=== PATIENT | female | born 1970 | race Caucasian/White ===

== ENCOUNTER → 2017-07-19 07:42 | Outpatient (CLI) | payer OTHER, SELFPAY ==
[2017-07-19 08:00] LABS: Absolute Lymphocyte Count 1.44 X10^3/ul (0.83-4.51); Absolute Neutrophil Count 3.1 X10^3/uL (2.0-7.7); Basophil# 0.01 X10^3/uL; Basophil% 0.2 % (0-1); Eosinophil# 0.03 X10^3/uL; Eosinophils% 0.6 % (0-5); Hematocrit 43.3 % (37-47); Hemoglobin 15.3 g/dl (12.0-15.0); Lymphocyte # 1.44 X10^3/ul (4.0); Lymphocyte % 28.5 % (19-41); Mean Corp Hgb Conc 35.3 g/gl (32-36); Mean Corpuscular Hgb 35.4 pg (27.0-32.0); Mean Corpuscular Volume 100.2 fL (81-99); Mean Platelet Vol. 9.2 fl (6.2-12.0); Monocyte# 0.42 X10^3/uL; Monocyte% 8.3 % (0-10); Neutrophil # 3.14 X10^3/uL (2.7-7.7); Neutrophil % 62.2 % (47-70); Platelet Count 243 K/mm3 (150-450); RBC Distribution Width CV 11.6 % (11.6-14.6); RBC Distribution Width SD 42.2 fl (35.1-43.9); Red Blood Count 4.32 M/mm3 (4.2-5.4); White Blood Count 5.1 K/mm3 (4.4-11.0)
[2017-07-19 08:01] LABS: POSITIVE COUNT NO; POSITIVE DIFFERENTIAL NO; POSITIVE MORPHOLOGY NO
[2017-07-19 08:22] LABS: ALB/GLOB Ratio 1.2 RATIO (0.9-2.4); AST(SGOT) 25 U/L (15-37); Alanine Aminotransfer ALT/SGPT 25 U/L (13-56); Albumin, Serum 4.1 g/dL (3.2-5.0); Alkaline Phosphatase 54 U/L (45-117); Anion Gap 4 (5-15); BUN 8 mg/dL (7-18); BUN/Creat Ratio 10.7 RATIO (10-20); Calcium,Total 9.1 mg/dL (8.5-10.1); Chloride 104 mmol/L (98-107); Creatinine, Serum 0.75 mg/dL (0.55-1.02); EST Glomerular Filtration Rate 89 mL/min (>60); Est Glom Filt Rate - Afr Amer 107 mL/min (>60); Globulin 3.3 g/dL (2.2-4.2); Glucose 72 mg/dL (74-106); Potassium 3.7 mmol/L (3.5-5.1); Protein, Total 7.4 g/dL (6.4-8.2); Sodium Level 138 mmol/L (136-145)
== END ==
PROVIDERS: Family Provider Family Medicine; PCP Family Medicine; Visit Provider Internal Medicine Rheumatology
DX: M05.79 Rheumatoid arthritis with rheumatoid factor of multiple sites without organ or systems involvement (principal); M35.00 Sjogren syndrome, unspecified; M18.11 Unilateral primary osteoarthritis of first carpometacarpal joint, right hand; M46.1 Sacroiliitis, not elsewhere classified; M47.892 Other spondylosis, cervical region; R51 Headache; Z79.899 Other long term (current) drug therapy
CPT/HCPCS: 36415; 80053; 85025

== ENCOUNTER → 2017-10-04 09:22 | Outpatient (CLI) | payer OTHER, SELFPAY ==
[2017-10-04 11:18] LABS: Absolute Lymphocyte Count 1.51 X10^3/ul (0.83-4.51); Absolute Neutrophil Count 2.2 X10^3/uL (2.0-7.7); Basophil# 0.02 X10^3/uL; Basophil% 0.5 % (0-1); Eosinophil# 0.03 X10^3/uL; Eosinophils% 0.7 % (0-5); Hemoglobin 15.1 g/dl (12.0-15.0); Lymphocyte # 1.51 X10^3/ul (4.0); Lymphocyte % 36.2 % (19-41); Mean Corp Hgb Conc 35.1 g/gl (32-36); Mean Corpuscular Hgb 35.7 pg (27.0-32.0); Mean Corpuscular Volume 101.7 fL (81-99); Mean Platelet Vol. 10.3 fl (6.2-12.0); Monocyte% 9.6 % (0-10); Neutrophil % 52.8 % (47-70); Platelet Count 186 K/mm3 (150-450); RBC Distribution Width CV 11.8 % (11.6-14.6); RBC Distribution Width SD 43.1 fl (35.1-43.9); Red Blood Count 4.23 M/mm3 (4.2-5.4); White Blood Count 4.2 K/mm3 (4.4-11.0)
[2017-10-04 11:24] LABS: POSITIVE COUNT NO; POSITIVE DIFFERENTIAL NO; POSITIVE MORPHOLOGY NO
[2017-10-04 11:45] LABS: ALB/GLOB Ratio 1.4 RATIO (0.9-2.4); AST(SGOT) 31 U/L (15-37); Alanine Aminotransfer ALT/SGPT 37 U/L (13-56); Albumin, Serum 4.3 g/dL (3.2-5.0); Alkaline Phosphatase 54 U/L (45-117); Anion Gap 7 (5-15); BUN 8 mg/dL (7-18); BUN/Creat Ratio 11.7 RATIO (10-20); Calcium,Total 8.7 mg/dL (8.5-10.1); Chloride 106 mmol/L (98-107); Creatinine, Serum 0.68 mg/dL (0.55-1.02); EST Glomerular Filtration Rate 99 mL/min (>60); Est Glom Filt Rate - Afr Amer 119 mL/min (>60); Globulin 3.1 g/dL (2.2-4.2); Glucose 49 mg/dL (74-106); Potassium 3.7 mmol/L (3.5-5.1); Protein, Total 7.4 g/dL (6.4-8.2); Sodium Level 141 mmol/L (136-145)
== END ==
PROVIDERS: Family Provider Family Medicine; PCP Family Medicine; Visit Provider Internal Medicine Rheumatology
DX: M05.79 Rheumatoid arthritis with rheumatoid factor of multiple sites without organ or systems involvement (principal); M35.00 Sjogren syndrome, unspecified; M18.11 Unilateral primary osteoarthritis of first carpometacarpal joint, right hand; M46.1 Sacroiliitis, not elsewhere classified; M47.892 Other spondylosis, cervical region; R51 Headache; Z79.899 Other long term (current) drug therapy
CPT/HCPCS: 36415; 80053; 85025

== ENCOUNTER → 2017-12-27 07:40 | Outpatient (CLI) | payer OTHER, SELFPAY ==
[2017-12-27 08:43] LABS: Absolute Lymphocyte Count 1.77 X10^3/ul (0.83-4.51); Absolute Neutrophil Count 2.8 X10^3/uL (2.0-7.7); Basophil# 0.02 X10^3/uL; Basophil% 0.4 % (0-1); Eosinophil# 0.04 X10^3/uL; Eosinophils% 0.8 % (0-5); Hematocrit 43.1 % (37-47); Hemoglobin 14.5 g/dl (12.0-15.0); Lymphocyte # 1.77 X10^3/ul (4.0); Lymphocyte % 35.5 % (19-41); Mean Corp Hgb Conc 33.6 g/gl (32-36); Mean Corpuscular Hgb 35.1 pg (27.0-32.0); Mean Corpuscular Volume 104.4 fL (81-99); Mean Platelet Vol. 9.6 fl (6.2-12.0); Monocyte# 0.36 X10^3/uL; Monocyte% 7.2 % (0-10); Neutrophil % 56.1 % (47-70); Platelet Count 211 K/mm3 (150-450); RBC Distribution Width CV 11.9 % (11.6-14.6); Red Blood Count 4.13 M/mm3 (4.2-5.4)
[2017-12-27 08:46] LABS: POSITIVE COUNT NO; POSITIVE DIFFERENTIAL NO; POSITIVE MORPHOLOGY NO
[2017-12-27 09:18] LABS: ALB/GLOB Ratio 1.2 RATIO (0.9-2.4); AST(SGOT) 21 U/L (15-37); Alanine Aminotransfer ALT/SGPT 25 U/L (13-56); Albumin, Serum 3.7 g/dL (3.2-5.0); Alkaline Phosphatase 54 U/L (45-117); Anion Gap 6 (5-15); BUN 12 mg/dL (7-18); BUN/Creat Ratio 17.7 RATIO (10-20); Calcium,Total 8.7 mg/dL (8.5-10.1); Chloride 105 mmol/L (98-107); Cholesterol 122 mg/dL (200); Creatinine, Serum 0.68 mg/dL (0.55-1.02); EST Glomerular Filtration Rate 99 mL/min (>60); Est Glom Filt Rate - Afr Amer 120 mL/min (>60); Globulin 3.1 g/dL (2.2-4.2); Glucose 72 mg/dL (74-106); High Density Lipoprotein 60 mg/dL; Potassium 3.9 mmol/L (3.5-5.1); Protein, Total 6.8 g/dL (6.4-8.2); Sodium Level 139 mmol/L (136-145); T3 Uptake 33 % (30-39); T4 Total, Thyroxin 9.6 ug/dL (4.8-13.9); T7 / Free Thyroxin Index 3.2 (1.4-4.5); Thyroid Stim Hormone (TSH) 1.75 uIU/mL (0.358-3.74); Triglycerides 48 mg/dL; Very Low Density Lipoprotein 10 mg/dL (5-40)
== END ==
PROVIDERS: Family Provider Family Medicine; PCP Family Medicine; Referring Provider Internal Medicine Rheumatology; Visit Provider Internal Medicine Rheumatology
DX: M05.79 Rheumatoid arthritis with rheumatoid factor of multiple sites without organ or systems involvement (principal); Z79.899 Other long term (current) drug therapy; M35.00 Sjogren syndrome, unspecified; M18.11 Unilateral primary osteoarthritis of first carpometacarpal joint, right hand; M46.1 Sacroiliitis, not elsewhere classified; M47.892 Other spondylosis, cervical region; R51 Headache; Z13.220 Encounter for screening for lipoid disorders
CPT/HCPCS: 36415; 80053; 80061; 84436; 84443; 84479; 85025

== ENCOUNTER → 2018-04-08 16:28 | Outpatient (CLI) | payer OTHER, SELFPAY ==
[2018-04-08 17:35] LABS: ALB/GLOB Ratio 1.4 RATIO (0.9-2.4); AST(SGOT) 31 U/L (15-37); Alanine Aminotransfer ALT/SGPT 46 U/L (13-56); Albumin, Serum 4.5 g/dL (3.2-5.0); Alkaline Phosphatase 72 U/L (45-117); Anion Gap 7 (5-15); BUN 11 mg/dL (7-18); BUN/Creat Ratio 15.6 RATIO (10-20); Calcium,Total 8.7 mg/dL (8.5-10.1); Chloride 104 mmol/L (98-107); EST Glomerular Filtration Rate 95 mL/min (>60); Est Glom Filt Rate - Afr Amer 115 mL/min (>60); Globulin 3.2 g/dL (2.2-4.2); Glucose 73 mg/dL (74-106); Potassium 3.8 mmol/L (3.5-5.1); Protein, Total 7.7 g/dL (6.4-8.2); Sodium Level 140 mmol/L (136-145)
[2018-04-08 17:44] LABS: Absolute Neutrophil Count 3.5 X10^3/uL (2.0-7.7); Basophil# 0.01 X10^3/uL; Basophil% 0.2 % (0-1); Eosinophil# 0.07 X10^3/uL; Eosinophils% 1.2 % (0-5); Hematocrit 46.4 % (37-47); Hemoglobin 15.6 g/dl (12.0-15.0); Lymphocyte % 33.7 % (19-41); Mean Corp Hgb Conc 33.6 g/gl (32-36); Mean Corpuscular Hgb 35.7 pg (27.0-32.0); Mean Corpuscular Volume 106.2 fL (81-99); Mean Platelet Vol. 10.1 fl (6.2-12.0); Monocyte% 6.7 % (0-10); Neutrophil # 3.45 X10^3/uL (2.7-7.7); Platelet Count 217 K/mm3 (150-450); RBC Distribution Width CV 12.2 % (11.6-14.6); RBC Distribution Width SD 46.6 fl (35.1-43.9); Red Blood Count 4.37 M/mm3 (4.2-5.4); White Blood Count 5.9 K/mm3 (4.4-11.0)
[2018-04-08 18:00] LABS: POSITIVE COUNT NO; POSITIVE DIFFERENTIAL NO; POSITIVE MORPHOLOGY NO
== END ==
PROVIDERS: Family Provider Family Medicine; PCP Family Medicine; Referring Provider Internal Medicine Rheumatology; Visit Provider Internal Medicine Rheumatology
DX: M05.79 Rheumatoid arthritis with rheumatoid factor of multiple sites without organ or systems involvement (principal); M35.00 Sjogren syndrome, unspecified; M18.11 Unilateral primary osteoarthritis of first carpometacarpal joint, right hand; M46.1 Sacroiliitis, not elsewhere classified; M47.892 Other spondylosis, cervical region; R51 Headache; Z79.899 Other long term (current) drug therapy
CPT/HCPCS: 36415; 80053; 85025

== ENCOUNTER → 2018-07-02 16:10 | Outpatient (CLI) | payer OTHER, SELFPAY ==
[2018-07-02 17:42] LABS: Absolute Lymphocyte Count 2.58 X10^3/ul (0.83-4.51); Absolute Neutrophil Count 4.5 X10^3/uL (2.0-7.7); Basophil# 0.02 X10^3/uL; Basophil% 0.3 % (0-1); Eosinophil# 0.03 X10^3/uL; Eosinophils% 0.4 % (0-5); Hematocrit 45.4 % (37-47); Hemoglobin 15.5 g/dl (12.0-15.0); Lymphocyte # 2.58 X10^3/ul (4.0); Lymphocyte % 34.2 % (19-41); Mean Corp Hgb Conc 34.1 g/gl (32-36); Mean Corpuscular Hgb 35.3 pg (27.0-32.0); Mean Corpuscular Volume 103.4 fL (81-99); Mean Platelet Vol. 9.9 fl (6.2-12.0); Monocyte# 0.41 X10^3/uL; Monocyte% 5.4 % (0-10); Neutrophil % 59.6 % (47-70); POSITIVE COUNT NO; POSITIVE DIFFERENTIAL NO; POSITIVE MORPHOLOGY NO; Platelet Count 232 K/mm3 (150-450); RBC Distribution Width CV 11.7 % (11.6-14.6); RBC Distribution Width SD 44.1 fl (35.1-43.9); Red Blood Count 4.39 M/mm3 (4.2-5.4); White Blood Count 7.6 K/mm3 (4.4-11.0)
[2018-07-02 17:46] LABS: ALB/GLOB Ratio 1.4 RATIO (0.9-2.4); AST(SGOT) 35 U/L (15-37); Alanine Aminotransfer ALT/SGPT 38 U/L (13-56); Albumin, Serum 4.5 g/dL (3.2-5.0); Alkaline Phosphatase 68 U/L (45-117); Anion Gap 7 (5-15); BUN 9 mg/dL (7-18); BUN/Creat Ratio 13.2 RATIO (10-20); Calcium,Total 8.8 mg/dL (8.5-10.1); Chloride 103 mmol/L (98-107); Creatinine, Serum 0.68 mg/dL (0.55-1.02); EST Glomerular Filtration Rate 98 mL/min (>60); Est Glom Filt Rate - Afr Amer 119 mL/min (>60); Globulin 3.3 g/dL (2.2-4.2); Glucose 79 mg/dL (74-106); Potassium 3.8 mmol/L (3.5-5.1); Protein, Total 7.8 g/dL (6.4-8.2); Sodium Level 137 mmol/L (136-145)
== END ==
PROVIDERS: Family Provider Family Medicine; PCP Family Medicine; Referring Provider Internal Medicine Rheumatology; Visit Provider Internal Medicine Rheumatology
DX: R51 Headache (principal); M05.79 Rheumatoid arthritis with rheumatoid factor of multiple sites without organ or systems involvement; M35.00 Sjogren syndrome, unspecified; M18.11 Unilateral primary osteoarthritis of first carpometacarpal joint, right hand; M46.1 Sacroiliitis, not elsewhere classified; M47.892 Other spondylosis, cervical region; Z79.899 Other long term (current) drug therapy
CPT/HCPCS: 36415; 80053; 85025

== ENCOUNTER → 2018-09-28 | Outpatient (CLI) | payer OTHER, SELFPAY ==
[2018-09-28 11:18] LABS: Absolute Lymphocyte Count 1.29 X10^3/ul (0.83-4.51); Absolute Neutrophil Count 2.6 X10^3/uL (2.0-7.7); Basophil# 0.01 X10^3/uL; Basophil% 0.2 % (0-1); Eosinophil# 0.04 X10^3/uL; Eosinophils% 0.9 % (0-5); Hematocrit 45.4 % (37-47); Hemoglobin 15.4 g/dl (12.0-15.0); Lymphocyte # 1.29 X10^3/ul (4.0); Lymphocyte % 29.7 % (19-41); Mean Corp Hgb Conc 33.9 g/gl (32-36); Mean Corpuscular Hgb 35.4 pg (27.0-32.0); Mean Corpuscular Volume 104.4 fL (81-99); Mean Platelet Vol. 10.1 fl (6.2-12.0); Monocyte# 0.42 X10^3/uL; Monocyte% 9.7 % (0-10); Neutrophil # 2.59 X10^3/uL (2.7-7.7); Neutrophil % 59.5 % (47-70); Platelet Count 196 K/mm3 (150-450); RBC Distribution Width CV 12.3 % (11.6-14.6); RBC Distribution Width SD 46.3 fl (35.1-43.9); Red Blood Count 4.35 M/mm3 (4.2-5.4); White Blood Count 4.4 K/mm3 (4.4-11.0)
[2018-09-28 11:27] LABS: POSITIVE COUNT NO; POSITIVE DIFFERENTIAL NO; POSITIVE MORPHOLOGY NO
[2018-09-28 11:33] LABS: ALB/GLOB Ratio 1.3 RATIO (0.9-2.4); AST(SGOT) 29 U/L (15-37); Alanine Aminotransfer ALT/SGPT 43 U/L (13-56); Alkaline Phosphatase 67 U/L (45-117); Anion Gap 6 (5-15); BUN 9 mg/dL (7-18); BUN/Creat Ratio 13.5 RATIO (10-20); Calcium,Total 8.9 mg/dL (8.5-10.1); Chloride 107 mmol/L (98-107); Creatinine, Serum 0.66 mg/dL (0.55-1.02); EST Glomerular Filtration Rate 101 mL/min (>60); Est Glom Filt Rate - Afr Amer 122 mL/min (>60); Globulin 3.1 g/dL (2.2-4.2); Glucose 59 mg/dL (74-106); Potassium 3.8 mmol/L (3.5-5.1); Protein, Total 7.1 g/dL (6.4-8.2); Sodium Level 143 mmol/L (136-145)
== END | disposition home or self-care (01) ==
LOC: LAB 10:06
PROVIDERS: Family Provider Family Medicine; PCP Family Medicine; Referring Provider Internal Medicine Rheumatology; Visit Provider Internal Medicine Rheumatology
DX: M05.70 Rheumatoid arthritis with rheumatoid factor of unspecified site without organ or systems involvement (principal); M35.00 Sjogren syndrome, unspecified; M18.11 Unilateral primary osteoarthritis of first carpometacarpal joint, right hand; M46.1 Sacroiliitis, not elsewhere classified; M47.892 Other spondylosis, cervical region; R51 Headache; Z79.899 Other long term (current) drug therapy
CPT/HCPCS: 36415; 80053; 85025

== ENCOUNTER → 2018-12-25 | Outpatient (CLI) | payer OTHER, SELFPAY ==
[2018-12-25 17:05] LABS: Absolute Lymphocyte Count 2.39 X10^3/uL (0.83-4.51); Basophil# 0.03 X10^3/uL; Basophil% 0.5 % (0-1); Eosinophil# 0.05 X10^3/uL; Eosinophils% 0.8 % (0-5); Hematocrit 43.1 % (37-47); Hemoglobin 14.7 g/dL (12.0-15.0); Lymphocyte # 2.39 X10^3/ul (4.0); Lymphocyte % 39.3 % (19-41); Mean Corp Hgb Conc 34.1 g/dL (32-36); Mean Corpuscular Hgb 36.1 pg (27.0-32.0); Mean Corpuscular Volume 105.9 fL (81-99); Mean Platelet Vol. 9.7 fl (6.2-12.0); Monocyte# 0.56 X10^3/uL; Monocyte% 9.2 % (0-10); NRBC Flagged by Analyzer 0 % (0-5); Neutrophil # 3.04 X10^3/uL (2.7-7.7); Platelet Count 200 K/mm3 (150-450); RBC Distribution Width SD 42.7 fl (35.1-43.9); Red Blood Count 4.07 M/mm3 (4.2-5.4); White Blood Count 6.1 K/mm3 (4.4-11.0)
[2018-12-25 17:36] LABS: ALB/GLOB Ratio 1.4 RATIO (0.9-2.4); AST(SGOT) 29 U/L (15-37); Alanine Aminotransfer ALT/SGPT 35 U/L (13-56); Albumin, Serum 4.2 g/dL (3.2-5.0); Alkaline Phosphatase 67 U/L (45-117); Anion Gap 4 (5-15); BUN 9 mg/dL (7-18); Chloride 103 mmol/L (98-107); Creatinine, Serum 0.69 mg/dL (0.55-1.02); EST Glomerular Filtration Rate 97 mL/min (>60); Est Glom Filt Rate - Afr Amer 117 mL/min (>60); Glucose 76 mg/dL (74-106); Potassium 3.9 mmol/L (3.5-5.1); Protein, Total 7.2 g/dL (6.4-8.2); Sodium Level 137 mmol/L (136-145)
== END | disposition home or self-care (01) ==
LOC: LAB 16:53
PROVIDERS: Family Provider Family Medicine; PCP Family Medicine; Referring Provider Internal Medicine Rheumatology; Visit Provider Internal Medicine Rheumatology
DX: M05.79 Rheumatoid arthritis with rheumatoid factor of multiple sites without organ or systems involvement (principal); M35.00 Sjogren syndrome, unspecified; M18.11 Unilateral primary osteoarthritis of first carpometacarpal joint, right hand; M46.1 Sacroiliitis, not elsewhere classified; M47.892 Other spondylosis, cervical region; R51 Headache; Z79.899 Other long term (current) drug therapy
CPT/HCPCS: 36415; 80053; 85025

== ENCOUNTER → 2019-03-26 09:52 | Outpatient (CLI) | payer OTHER, SELFPAY ==
[2019-03-26 10:38] LABS: Absolute Lymphocyte Count 1.82 X10^3/uL (0.83-4.51); Absolute Neutrophil Count 2.1 X10^3/uL (2.0-7.7); Basophil# 0.02 X10^3/uL; Basophil% 0.4 % (0-1); Eosinophil# 0.07 X10^3/uL; Eosinophils% 1.6 % (0-5); Hematocrit 43.9 % (37-47); Lymphocyte # 1.82 X10^3/ul (4.0); Lymphocyte % 40.5 % (19-41); Mean Corp Hgb Conc 34.2 g/dL (32-36); Mean Corpuscular Volume 102.3 fL (81-99); Mean Platelet Vol. 10.1 fl (6.2-12.0); Monocyte# 0.42 X10^3/uL; Monocyte% 9.4 % (0-10); NRBC Flagged by Analyzer 0 % (0-5); Neutrophil # 2.14 X10^3/uL (2.7-7.7); Neutrophil % 47.7 % (47-70); Platelet Count 215 K/mm3 (150-450); RBC Distribution Width CV 11.3 % (11.6-14.6); RBC Distribution Width SD 42.5 fl (35.1-43.9); Red Blood Count 4.29 M/mm3 (4.2-5.4); White Blood Count 4.5 K/mm3 (4.4-11.0)
[2019-03-26 11:03] LABS: ALB/GLOB Ratio 1.2 RATIO (0.9-2.4); AST(SGOT) 26 U/L (15-37); Alanine Aminotransfer ALT/SGPT 29 U/L (13-56); Albumin, Serum 3.9 g/dL (3.2-5.0); Alkaline Phosphatase 54 U/L (45-117); Anion Gap 4 (5-15); BUN 8 mg/dL (7-18); BUN/Creat Ratio 10.9 RATIO (10-20); Calcium,Total 8.8 mg/dL (8.5-10.1); Chloride 106 mmol/L (98-107); Creatinine, Serum 0.74 mg/dL (0.55-1.02); EST Glomerular Filtration Rate 90 mL/min (>60); Est Glom Filt Rate - Afr Amer 109 mL/min (>60); Globulin 3.2 g/dL (2.2-4.2); Glucose 59 mg/dL (74-106); Protein, Total 7.1 g/dL (6.4-8.2); Sodium Level 139 mmol/L (136-145)
== END ==
PROVIDERS: Family Provider Family Medicine; PCP Family Medicine; Referring Provider Internal Medicine Rheumatology; Visit Provider Internal Medicine Rheumatology
DX: R51 Headache (principal); M47.892 Other spondylosis, cervical region; M35.00 Sjogren syndrome, unspecified; M18.11 Unilateral primary osteoarthritis of first carpometacarpal joint, right hand; M46.1 Sacroiliitis, not elsewhere classified; M05.79 Rheumatoid arthritis with rheumatoid factor of multiple sites without organ or systems involvement; Z79.899 Other long term (current) drug therapy
CPT/HCPCS: 36415; 80053; 85025

== ENCOUNTER → 2019-06-23 07:18 | Outpatient (CLI) | payer OTHER, SELFPAY ==
[2019-06-23 10:19] LABS: Absolute Neutrophil Count 1.6 X10^3/uL (2.0-7.7); Basophil# 0.02 X10^3/uL; Basophil% 0.5 % (0-1); Eosinophil# 0.05 X10^3/uL; Eosinophils% 1.3 % (0-5); Hemoglobin 14.3 g/dL (12.0-15.0); Lymphocyte % 45.6 % (19-41); Mean Corp Hgb Conc 33.3 g/dL (32-36); Mean Corpuscular Hgb 34.1 pg (27.0-32.0); Mean Corpuscular Volume 102.6 fL (81-99); Mean Platelet Vol. 9.9 fl (6.2-12.0); Monocyte# 0.32 X10^3/uL; Monocyte% 8.6 % (0-10); NRBC Flagged by Analyzer 0 % (0-5); Neutrophil # 1.63 X10^3/uL (2.7-7.7); Neutrophil % 43.7 % (47-70); Platelet Count 294 K/mm3 (150-450); RBC Distribution Width CV 11.2 % (11.6-14.6); RBC Distribution Width SD 42.3 fl (35.1-43.9); Red Blood Count 4.19 M/mm3 (4.2-5.4); White Blood Count 3.7 K/mm3 (4.4-11.0)
[2019-06-23 10:32] LABS: ALB/GLOB Ratio 0.9 RATIO (0.9-2.4); AST(SGOT) 24 U/L (15-37); Alanine Aminotransfer ALT/SGPT 27 U/L (13-56); Albumin, Serum 3.5 g/dL (3.2-5.0); Alkaline Phosphatase 67 U/L (45-117); Anion Gap 7 (5-15); BUN 11 mg/dL (7-18); BUN/Creat Ratio 15.4 RATIO (10-20); Chloride 108 mmol/L (98-107); Creatinine, Serum 0.72 mg/dL (0.55-1.02); EST Glomerular Filtration Rate 93 mL/min (>60); Est Glom Filt Rate - Afr Amer 112 mL/min (>60); Globulin 3.7 g/dL (2.2-4.2); Glucose 62 mg/dL (74-106); Potassium 3.7 mmol/L (3.5-5.1); Protein, Total 7.2 g/dL (6.4-8.2); Sodium Level 142 mmol/L (136-145)
== END ==
PROVIDERS: PCP Family Medicine; Referring Provider Internal Medicine Rheumatology; Visit Provider Internal Medicine Rheumatology
DX: M05.79 Rheumatoid arthritis with rheumatoid factor of multiple sites without organ or systems involvement (principal); M35.00 Sjogren syndrome, unspecified; M18.11 Unilateral primary osteoarthritis of first carpometacarpal joint, right hand; M46.1 Sacroiliitis, not elsewhere classified; M47.892 Other spondylosis, cervical region; R51 Headache; Z79.899 Other long term (current) drug therapy
CPT/HCPCS: 36415; 80053; 85025

== ENCOUNTER → 2019-09-20 07:33 | Outpatient (CLI) | payer OTHER, SELFPAY ==
[2019-09-20 09:43] LABS: Absolute Lymphocyte Count 1.93 X10^3/uL (0.83-4.51); Absolute Neutrophil Count 1.6 X10^3/uL (2.0-7.7); Basophil# 0.02 X10^3/uL; Basophil% 0.5 % (0-1); Eosinophil# 0.06 X10^3/uL; Eosinophils% 1.5 % (0-5); Hematocrit 45.9 % (37-47); Hemoglobin 15.4 g/dL (12.0-15.0); Lymphocyte # 1.93 X10^3/ul (4.0); Lymphocyte % 48.6 % (19-41); Mean Corp Hgb Conc 33.6 g/dL (32-36); Mean Corpuscular Hgb 34.8 pg (27.0-32.0); Mean Corpuscular Volume 103.8 fL (81-99); Mean Platelet Vol. 10.7 fl (6.2-12.0); Monocyte# 0.37 X10^3/uL; Monocyte% 9.3 % (0-10); NRBC Flagged by Analyzer 0 % (0-5); Neutrophil # 1.58 X10^3/uL (2.7-7.7); Neutrophil % 39.8 % (47-70); Platelet Count 181 K/mm3 (150-450); RBC Distribution Width CV 11.5 % (11.6-14.6); RBC Distribution Width SD 43.8 fl (35.1-43.9); Red Blood Count 4.42 M/mm3 (4.2-5.4)
[2019-09-20 10:13] LABS: ALB/GLOB Ratio 1.3 RATIO (0.9-2.4); AST(SGOT) 29 U/L (15-37); Alanine Aminotransfer ALT/SGPT 36 U/L (13-56); Albumin, Serum 4.4 g/dL (3.2-5.0); Alkaline Phosphatase 68 U/L (45-117); Anion Gap 6 (5-15); BUN 13 mg/dL (7-18); BUN/Creat Ratio 16.2 RATIO (10-20); Calcium,Total 9.9 mg/dL (8.5-10.1); Chloride 103 mmol/L (98-107); EST Glomerular Filtration Rate 81 mL/min (>60); Est Glom Filt Rate - Afr Amer 98 mL/min (>60); Globulin 3.3 g/dL (2.2-4.2); Glucose 53 mg/dL (74-106); Protein, Total 7.7 g/dL (6.4-8.2); Sodium Level 140 mmol/L (136-145)
== END ==
PROVIDERS: PCP Family Medicine; Referring Provider Internal Medicine Rheumatology; Visit Provider Internal Medicine Rheumatology
DX: M05.79 Rheumatoid arthritis with rheumatoid factor of multiple sites without organ or systems involvement (principal); Z79.899 Other long term (current) drug therapy; M35.00 Sjogren syndrome, unspecified; M18.11 Unilateral primary osteoarthritis of first carpometacarpal joint, right hand; M46.1 Sacroiliitis, not elsewhere classified; M15.9 Polyosteoarthritis, unspecified; M47.892 Other spondylosis, cervical region; R51 Headache
CPT/HCPCS: 36415; 80053; 85025

== ENCOUNTER → 2019-12-07 | Outpatient (CLI) | payer OTHER, SELFPAY ==
[2019-12-07 10:38] LABS: Absolute Lymphocyte Count 1.84 X10^3/uL (0.83-4.51); Absolute Neutrophil Count 1.5 X10^3/uL (2.0-7.7); Basophil# 0.02 X10^3/uL; Basophil% 0.5 % (0-1); Eosinophil# 0.06 X10^3/uL; Eosinophils% 1.6 % (0-5); Hematocrit 44.3 % (37-47); Hemoglobin 14.8 g/dL (12.0-15.0); Lymphocyte # 1.84 X10^3/ul (4.0); Lymphocyte % 50.5 % (19-41); Mean Corp Hgb Conc 33.4 g/dL (32-36); Mean Corpuscular Hgb 34.4 pg (27.0-32.0); Mean Platelet Vol. 10.1 fl (6.2-12.0); Monocyte# 0.26 X10^3/uL; Monocyte% 7.1 % (0-10); NRBC Flagged by Analyzer 0 % (0-5); Neutrophil # 1.46 X10^3/uL (2.7-7.7); Neutrophil % 40.3 % (47-70); Platelet Count 200 K/mm3 (150-450); RBC Distribution Width CV 11.5 % (11.6-14.6); RBC Distribution Width SD 43.5 fl (35.1-43.9); White Blood Count 3.6 K/mm3 (4.4-11.0)
[2019-12-07 10:58] LABS: ALB/GLOB Ratio 1.3 RATIO (0.9-2.4); AST(SGOT) 32 U/L (15-37); Alanine Aminotransfer ALT/SGPT 36 U/L (13-56); Albumin, Serum 4.3 g/dL (3.2-5.0); Alkaline Phosphatase 65 U/L (45-117); Anion Gap 4 (5-15); BUN 9 mg/dL (7-18); BUN/Creat Ratio 12.3 RATIO (10-20); Calcium,Total 9.5 mg/dL (8.5-10.1); Chloride 106 mmol/L (98-107); Creatinine, Serum 0.73 mg/dL (0.55-1.02); EST Glomerular Filtration Rate 90 mL/min (>60); Est Glom Filt Rate - Afr Amer 109 mL/min (>60); Globulin 3.3 g/dL (2.2-4.2); Glucose 73 mg/dL (74-106); Potassium 3.5 mmol/L (3.5-5.1); Protein, Total 7.6 g/dL (6.4-8.2); Sodium Level 141 mmol/L (136-145)
== END | disposition home or self-care (01) ==
LOC: MTLAB 07:19
PROVIDERS: PCP Family Medicine; Referring Provider Internal Medicine Rheumatology; Visit Provider Internal Medicine Rheumatology
DX: M05.70 Rheumatoid arthritis with rheumatoid factor of unspecified site without organ or systems involvement (principal); M35.00 Sjogren syndrome, unspecified; M18.11 Unilateral primary osteoarthritis of first carpometacarpal joint, right hand; M46.1 Sacroiliitis, not elsewhere classified; M47.892 Other spondylosis, cervical region; R51 Headache; Z79.899 Other long term (current) drug therapy
CPT/HCPCS: 36415; 80053; 85025

== ENCOUNTER → 2020-01-04 | Outpatient (CLI) | payer OTHER, SELFPAY ==
[2020-01-04 10:19] LABS: Absolute Lymphocyte Count 1.51 X10^3/uL (0.83-4.51); Absolute Neutrophil Count 1.8 X10^3/uL (2.0-7.7); Basophil# 0.03 X10^3/uL; Basophil% 0.8 % (0-1); Eosinophil# 0.05 X10^3/uL; Eosinophils% 1.4 % (0-5); Hematocrit 46.4 % (37-47); Hemoglobin 15.4 g/dL (12.0-15.0); Lymphocyte # 1.51 X10^3/ul (4.0); Lymphocyte % 40.9 % (19-41); Mean Corp Hgb Conc 33.2 g/dL (32-36); Mean Corpuscular Hgb 34.5 pg (27.0-32.0); Mean Corpuscular Volume 103.8 fL (81-99); Mean Platelet Vol. 10.2 fl (6.2-12.0); Monocyte# 0.29 X10^3/uL; Monocyte% 7.9 % (0-10); NRBC Flagged by Analyzer 0 % (0-5); Neutrophil # 1.81 X10^3/uL (2.7-7.7); Platelet Count 207 K/mm3 (150-450); RBC Distribution Width CV 11.4 % (11.6-14.6); RBC Distribution Width SD 43.8 fl (35.1-43.9); Red Blood Count 4.47 M/mm3 (4.2-5.4); White Blood Count 3.7 K/mm3 (4.4-11.0)
== END | disposition home or self-care (01) ==
LOC: MTLAB 07:26
PROVIDERS: PCP Family Medicine; Referring Provider Internal Medicine Rheumatology; Visit Provider Internal Medicine Rheumatology
DX: M05.70 Rheumatoid arthritis with rheumatoid factor of unspecified site without organ or systems involvement (principal); M35.00 Sjogren syndrome, unspecified; M18.11 Unilateral primary osteoarthritis of first carpometacarpal joint, right hand; M46.1 Sacroiliitis, not elsewhere classified; M77.01 Medial epicondylitis, right elbow; M47.892 Other spondylosis, cervical region; Z79.899 Other long term (current) drug therapy; R51.9 Headache, unspecified
CPT/HCPCS: 36415; 85025

== ENCOUNTER → 2020-02-28 07:36 | Outpatient (CLI) | payer OTHER, SELFPAY ==
[2020-02-28 09:40] LABS: Absolute Lymphocyte Count 1.71 X10^3/uL (0.83-4.51); Absolute Neutrophil Count 2.3 X10^3/uL (2.0-7.7); Basophil# 0.04 X10^3/uL; Basophil% 0.9 % (0-1); Eosinophil# 0.04 X10^3/uL; Eosinophils% 0.9 % (0-5); Hematocrit 46.4 % (37-47); Hemoglobin 15.5 g/dL (12.0-15.0); Lymphocyte # 1.71 X10^3/ul (4.0); Lymphocyte % 38.3 % (19-41); Mean Corp Hgb Conc 33.4 g/dL (32-36); Mean Corpuscular Hgb 35.4 pg (27.0-32.0); Mean Corpuscular Volume 105.9 fL (81-99); Mean Platelet Vol. 9.8 fl (6.2-12.0); Monocyte# 0.35 X10^3/uL; Monocyte% 7.8 % (0-10); NRBC Flagged by Analyzer 0 % (0-5); Neutrophil # 2.31 X10^3/uL (2.7-7.7); Neutrophil % 51.9 % (47-70); Platelet Count 224 K/mm3 (150-450); RBC Distribution Width CV 11.6 % (11.6-14.6); RBC Distribution Width SD 45.1 fl (35.1-43.9); Red Blood Count 4.38 M/mm3 (4.2-5.4); White Blood Count 4.5 K/mm3 (4.4-11.0)
[2020-02-28 10:03] LABS: ALB/GLOB Ratio 1.4 RATIO (0.9-2.4); AST(SGOT) 21 U/L (15-37); Alanine Aminotransfer ALT/SGPT 31 U/L (13-56); Albumin, Serum 4.4 g/dL (3.2-5.0); Alkaline Phosphatase 85 U/L (45-117); Anion Gap 5 (5-15); BUN 8 mg/dL (7-18); BUN/Creat Ratio 9.9 RATIO (10-20); Calcium,Total 9.1 mg/dL (8.5-10.1); Chloride 107 mmol/L (98-107); Creatinine, Serum 0.81 mg/dL (0.55-1.02); EST Glomerular Filtration Rate 81 mL/min (>60); Est Glom Filt Rate - Afr Amer 97 mL/min (>60); Globulin 3.2 g/dL (2.2-4.2); Glucose 71 mg/dL (74-106); Potassium 3.5 mmol/L (3.5-5.1); Protein, Total 7.6 g/dL (6.4-8.2); Sodium Level 140 mmol/L (136-145)
== END ==
PROVIDERS: PCP Family Medicine; Referring Provider Internal Medicine Rheumatology; Visit Provider Internal Medicine Rheumatology
DX: M05.79 Rheumatoid arthritis with rheumatoid factor of multiple sites without organ or systems involvement (principal); M35.00 Sjogren syndrome, unspecified; M18.11 Unilateral primary osteoarthritis of first carpometacarpal joint, right hand; M46.1 Sacroiliitis, not elsewhere classified; M77.01 Medial epicondylitis, right elbow; M47.892 Other spondylosis, cervical region; R51.9 Headache, unspecified; Z79.899 Other long term (current) drug therapy
CPT/HCPCS: 36415; 80053; 85025

== ENCOUNTER → 2020-05-15 07:21 | Outpatient (CLI) | payer OTHER, SELFPAY ==
[2020-05-15 09:49] LABS: Absolute Lymphocyte Count 1.69 X10^3/uL (0.83-4.51); Absolute Neutrophil Count 2.5 X10^3/uL (2.0-7.7); Basophil# 0.01 X10^3/uL; Basophil% 0.2 % (0-1); Eosinophil# 0.04 X10^3/uL; Eosinophils% 0.9 % (0-5); Hematocrit 41.4 % (37-47); Hemoglobin 13.9 g/dL (12.0-15.0); Lymphocyte # 1.69 X10^3/ul (4.0); Lymphocyte % 36.6 % (19-41); Mean Corp Hgb Conc 33.6 g/dL (32-36); Mean Corpuscular Hgb 35.5 pg (27.0-32.0); Mean Corpuscular Volume 105.9 fL (81-99); Mean Platelet Vol. 10.2 fl (6.2-12.0); Monocyte# 0.39 X10^3/uL; Monocyte% 8.4 % (0-10); NRBC Flagged by Analyzer 0 % (0-5); Neutrophil # 2.48 X10^3/uL (2.7-7.7); Neutrophil % 53.7 % (47-70); Platelet Count 172 K/mm3 (150-450); RBC Distribution Width SD 45.8 fl (35.1-43.9); Red Blood Count 3.91 M/mm3 (4.2-5.4); White Blood Count 4.6 K/mm3 (4.4-11.0)
[2020-05-15 10:27] LABS: ALB/GLOB Ratio 1.4 RATIO (0.9-2.4); AST(SGOT) 23 U/L (15-37); Alanine Aminotransfer ALT/SGPT 26 U/L (13-56); Albumin, Serum 3.8 g/dL (3.2-5.0); Alkaline Phosphatase 61 U/L (45-117); Anion Gap 5 (5-15); BUN 8 mg/dL (7-18); BUN/Creat Ratio 12.4 RATIO (10-20); Calcium,Total 8.7 mg/dL (8.5-10.1); Chloride 105 mmol/L (98-107); Creatinine, Serum 0.65 mg/dL (0.55-1.02); EST Glomerular Filtration Rate 104 mL/min (>60); Est Glom Filt Rate - Afr Amer 125 mL/min (>60); Globulin 2.8 g/dL (2.2-4.2); Glucose 62 mg/dL (74-106); Potassium 3.4 mmol/L (3.5-5.1); Protein, Total 6.6 g/dL (6.4-8.2); Sodium Level 139 mmol/L (136-145)
== END ==
PROVIDERS: PCP Family Medicine; Referring Provider Internal Medicine Rheumatology; Visit Provider Internal Medicine Rheumatology
DX: M05.70 Rheumatoid arthritis with rheumatoid factor of unspecified site without organ or systems involvement (principal); M35.00 Sjogren syndrome, unspecified; M18.11 Unilateral primary osteoarthritis of first carpometacarpal joint, right hand; M46.1 Sacroiliitis, not elsewhere classified; M77.01 Medial epicondylitis, right elbow; M47.892 Other spondylosis, cervical region; R51.0 Headache with orthostatic component, not elsewhere classified; Z79.899 Other long term (current) drug therapy
CPT/HCPCS: 36415; 80053; 85025

== ENCOUNTER → 2020-08-08 07:16 | Outpatient (CLI) | payer OTHER, SELFPAY ==
[2020-08-08 10:06] LABS: Absolute Lymphocyte Count 1.75 X10^3/uL (0.83-4.51); Absolute Neutrophil Count 2.4 X10^3/uL (2.0-7.7); Basophil# 0.02 X10^3/uL; Basophil% 0.4 % (0-1); Eosinophil# 0.03 X10^3/uL; Eosinophils% 0.6 % (0-5); Hematocrit 46.3 % (37-47); Hemoglobin 15.2 g/dL (12.0-15.0); Lymphocyte # 1.75 X10^3/ul (0.83-4.51); Lymphocyte % 37.5 % (19-41); Mean Corp Hgb Conc 32.8 g/dL (32-36); Mean Corpuscular Hgb 34.5 pg (27.0-32.0); Mean Corpuscular Volume 105.2 fL (81-99); Mean Platelet Vol. 10.2 fl (6.2-12.0); Monocyte# 0.44 X10^3/uL; Monocyte% 9.4 % (0-10); NRBC Flagged by Analyzer 0 % (0-5); Neutrophil # 2.42 X10^3/uL (2.7-7.7); Neutrophil % 51.9 % (47-70); Platelet Count 246 K/mm3 (150-450); RBC Distribution Width CV 11.5 % (11.6-14.6); RBC Distribution Width SD 44.6 fl (35.1-43.9); White Blood Count 4.7 K/mm3 (4.4-11.0)
[2020-08-08 10:50] LABS: ALB/GLOB Ratio 1.3 RATIO (0.9-2.4); AST(SGOT) 19 U/L (15-37); Alanine Aminotransfer ALT/SGPT 34 U/L (13-56); Albumin, Serum 4.3 g/dL (3.2-5.0); Alkaline Phosphatase 66 U/L (45-117); Anion Gap 5 (5-15); BUN 9 mg/dL (7-18); BUN/Creat Ratio 12.7 RATIO (10-20); Calcium,Total 9.5 mg/dL (8.5-10.1); Chloride 107 mmol/L (98-107); Creatinine, Serum 0.71 mg/dL (0.55-1.02); EST Glomerular Filtration Rate 93 mL/min (>60); Est Glom Filt Rate - Afr Amer 113 mL/min (>60); Globulin 3.4 g/dL (2.2-4.2); Glucose 56 mg/dL (74-106); Potassium 3.7 mmol/L (3.5-5.1); Protein, Total 7.7 g/dL (6.4-8.2); Sodium Level 139 mmol/L (136-145)
== END ==
PROVIDERS: PCP Family Medicine; Referring Provider Internal Medicine Rheumatology; Visit Provider Internal Medicine Rheumatology
DX: M05.70 Rheumatoid arthritis with rheumatoid factor of unspecified site without organ or systems involvement (principal); M35.00 Sjogren syndrome, unspecified; M18.11 Unilateral primary osteoarthritis of first carpometacarpal joint, right hand; M46.1 Sacroiliitis, not elsewhere classified; M77.01 Medial epicondylitis, right elbow; M47.892 Other spondylosis, cervical region; R51.9 Headache, unspecified; Z79.899 Other long term (current) drug therapy
CPT/HCPCS: 36415; 80053; 85025

== ENCOUNTER → 2020-11-02 15:50 | Outpatient (CLI) | payer OTHER, SELFPAY ==
[2020-11-02 18:05] LABS: Absolute Lymphocyte Count 2.01 X10^3/uL (0.83-4.51); Absolute Neutrophil Count 2.3 X10^3/uL (2.0-7.7); Basophil# 0.02 X10^3/uL; Basophil% 0.4 % (0-1); Eosinophil# 0.02 X10^3/uL; Eosinophils% 0.4 % (0-5); Hematocrit 43.8 % (37-47); Hemoglobin 14.6 g/dL (12.0-15.0); Lymphocyte # 2.01 X10^3/ul (0.83-4.51); Lymphocyte % 42.8 % (19-41); Mean Corp Hgb Conc 33.3 g/dL (32-36); Mean Platelet Vol. 10.1 fl (6.2-12.0); Monocyte% 6.4 % (0-10); NRBC Flagged by Analyzer 0 % (0-5); Neutrophil # 2.34 X10^3/uL (2.7-7.7); Neutrophil % 49.8 % (47-70); Platelet Count 216 K/mm3 (150-450); RBC Distribution Width CV 11.5 % (11.6-14.6); RBC Distribution Width SD 45.1 fl (35.1-43.9); Red Blood Count 4.17 M/mm3 (4.2-5.4); White Blood Count 4.7 K/mm3 (4.4-11.0)
[2020-11-02 18:25] LABS: ALB/GLOB Ratio 1.5 RATIO (0.9-2.4); AST(SGOT) 33 U/L (15-37); Alanine Aminotransfer ALT/SGPT 45 U/L (13-56); Albumin, Serum 4.3 g/dL (3.2-5.0); Alkaline Phosphatase 66 U/L (45-117); Anion Gap 6 (5-15); BUN 9 mg/dL (7-18); BUN/Creat Ratio 15.3 RATIO (10-20); Calcium,Total 9.2 mg/dL (8.5-10.1); Chloride 102 mmol/L (98-107); Creatinine, Serum 0.59 mg/dL (0.55-1.02); EST Glomerular Filtration Rate 116 mL/min (>60); Est Glom Filt Rate - Afr Amer 140 mL/min (>60); Globulin 2.9 g/dL (2.2-4.2); Glucose 81 mg/dL (74-106); Potassium 3.5 mmol/L (3.5-5.1); Protein, Total 7.2 g/dL (6.4-8.2); Sodium Level 137 mmol/L (136-145)
== END ==
PROVIDERS: PCP Family Medicine; Referring Provider Internal Medicine Rheumatology; Visit Provider Internal Medicine Rheumatology
DX: M05.70 Rheumatoid arthritis with rheumatoid factor of unspecified site without organ or systems involvement (principal); M35.00 Sjogren syndrome, unspecified; M18.11 Unilateral primary osteoarthritis of first carpometacarpal joint, right hand; M46.1 Sacroiliitis, not elsewhere classified; M77.01 Medial epicondylitis, right elbow; M47.892 Other spondylosis, cervical region; Z79.899 Other long term (current) drug therapy
CPT/HCPCS: 36415; 80053; 85025

== ENCOUNTER → 2021-01-09 07:04 | Outpatient (CLI) | payer OTHER, SELFPAY ==
[2021-01-09 09:55] LABS: Absolute Lymphocyte Count 1.45 X10^3/uL (0.83-4.51); Absolute Neutrophil Count 3.6 X10^3/uL (2.0-7.7); Basophil# 0.02 X10^3/uL; Basophil% 0.4 % (0-1); Eosinophils% 1.8 % (0-5); Hematocrit 46.3 % (37-47); Hemoglobin 15.5 g/dL (12.0-15.0); Lymphocyte # 1.45 X10^3/ul (0.83-4.51); Mean Corp Hgb Conc 33.5 g/dL (32-36); Mean Corpuscular Hgb 34.6 pg (27.0-32.0); Mean Corpuscular Volume 103.3 fL (81-99); Mean Platelet Vol. 9.6 fl (6.2-12.0); Monocyte# 0.39 X10^3/uL; NRBC Flagged by Analyzer 0 % (0-5); Neutrophil % 64.4 % (47-70); Platelet Count 217 K/mm3 (150-450); RBC Distribution Width CV 11.1 % (11.6-14.6); RBC Distribution Width SD 42.5 fl (35.1-43.9); Red Blood Count 4.48 M/mm3 (4.2-5.4); White Blood Count 5.6 K/mm3 (4.4-11.0)
[2021-01-09 10:15] LABS: ALB/GLOB Ratio 1.1 RATIO (0.9-2.4); AST(SGOT) 32 U/L (15-37); Alanine Aminotransfer ALT/SGPT 35 U/L (13-56); Alkaline Phosphatase 56 U/L (45-117); Anion Gap 8 (5-15); BUN 6 mg/dL (7-18); BUN/Creat Ratio 8.2 RATIO (10-20); Calcium,Total 9.2 mg/dL (8.5-10.1); Chloride 104 mmol/L (98-107); Creatinine, Serum 0.73 mg/dL (0.55-1.02); EST Glomerular Filtration Rate 89 mL/min (>60); Est Glom Filt Rate - Afr Amer 108 mL/min (>60); Globulin 3.5 g/dL (2.2-4.2); Glucose 54 mg/dL (74-106); Potassium 3.9 mmol/L (3.5-5.1); Protein, Total 7.5 g/dL (6.4-8.2); Sodium Level 142 mmol/L (136-145)
== END ==
PROVIDERS: PCP Family Medicine; Referring Provider Internal Medicine Rheumatology; Visit Provider Internal Medicine Rheumatology
DX: M05.70 Rheumatoid arthritis with rheumatoid factor of unspecified site without organ or systems involvement (principal); M35.00 Sjogren syndrome, unspecified; M18.11 Unilateral primary osteoarthritis of first carpometacarpal joint, right hand; M46.1 Sacroiliitis, not elsewhere classified; M77.01 Medial epicondylitis, right elbow; M47.892 Other spondylosis, cervical region; R51.9 Headache, unspecified; Z79.899 Other long term (current) drug therapy
CPT/HCPCS: 36415; 80053; 85025

== ENCOUNTER 2021-04-19 07:06 | Outpatient (CLI) | payer OTHER, SELFPAY ==
[2021-04-19 10:05] LABS: Absolute Neutrophil Count 1.9 X10^3/uL (2.0-7.7); Basophil# 0.04 X10^3/uL; Eosinophil# 0.06 X10^3/uL; Eosinophils% 1.5 % (0-5); Hematocrit 47.1 % (37-47); Hemoglobin 15.8 g/dL (12.0-15.0); Lymphocyte % 40.2 % (19-41); Mean Corp Hgb Conc 33.5 g/dL (32-36); Mean Corpuscular Hgb 34.1 pg (27.0-32.0); Mean Corpuscular Volume 101.7 fL (81-99); Mean Platelet Vol. 9.9 fl (6.2-12.0); Monocyte# 0.38 X10^3/uL; Monocyte% 9.5 % (0-10); NRBC Flagged by Analyzer 0 % (0-5); Neutrophil # 1.88 X10^3/uL (2.7-7.7); Neutrophil % 47.3 % (47-70); Platelet Count 238 K/mm3 (150-450); RBC Distribution Width CV 11.8 % (11.6-14.6); RBC Distribution Width SD 43.9 fl (35.1-43.9); Red Blood Count 4.63 M/mm3 (4.2-5.4)
[2021-04-19 10:47] LABS: ALB/GLOB Ratio 1.2 RATIO (0.9-2.4); AST(SGOT) 32 U/L (15-37); Alanine Aminotransfer ALT/SGPT 41 U/L (13-56); Albumin, Serum 4.3 g/dL (3.2-5.0); Alkaline Phosphatase 69 U/L (45-117); Anion Gap 6 (5-15); BUN 8 mg/dL (7-18); BUN/Creat Ratio 10.3 RATIO (10-20); Calcium,Total 9.8 mg/dL (8.5-10.1); Chloride 104 mmol/L (98-107); Creatinine, Serum 0.78 mg/dL (0.55-1.02); EST Glomerular Filtration Rate 84 mL/min (>60); Est Glom Filt Rate - Afr Amer 102 mL/min (>60); Globulin 3.7 g/dL (2.2-4.2); Glucose 72 mg/dL (74-106); Potassium 3.5 mmol/L (3.5-5.1); Sodium Level 141 mmol/L (136-145)
== END 2021-04-19 23:59 | disposition short-term general hospital (02) ==
LOC: MTLAB 07:08
PROVIDERS: PCP Nurse Practitioner Family; Referring Provider Internal Medicine Rheumatology; Visit Provider Internal Medicine Rheumatology
DX: M05.70 Rheumatoid arthritis with rheumatoid factor of unspecified site without organ or systems involvement (principal); M35.00 Sjogren syndrome, unspecified; M46.1 Sacroiliitis, not elsewhere classified; M18.11 Unilateral primary osteoarthritis of first carpometacarpal joint, right hand; M77.01 Medial epicondylitis, right elbow; M77.02 Medial epicondylitis, left elbow; M47.892 Other spondylosis, cervical region; R51.9 Headache, unspecified; Z79.899 Other long term (current) drug therapy
CPT/HCPCS: 36415; 80053; 85025

== ENCOUNTER 2021-07-17 07:07 | Outpatient (CLI) | payer OTHER, SELFPAY ==
[2021-07-17 09:55] LABS: Absolute Lymphocyte Count 1.54 X10^3/uL (0.83-4.51); Absolute Neutrophil Count 2.3 X10^3/uL (2.0-7.7); Basophil# 0.04 X10^3/uL; Basophil% 0.9 % (0-1); Eosinophil# 0.06 X10^3/uL; Eosinophils% 1.4 % (0-5); Hematocrit 45.6 % (37-47); Hemoglobin 15.6 g/dL (12.0-15.0); Lymphocyte # 1.54 X10^3/ul (0.83-4.51); Lymphocyte % 35.2 % (19-41); Mean Corp Hgb Conc 34.2 g/dL (32-36); Mean Corpuscular Hgb 34.8 pg (27.0-32.0); Mean Corpuscular Volume 101.8 fL (81-99); Mean Platelet Vol. 9.9 fl (6.2-12.0); Monocyte# 0.42 X10^3/uL; Monocyte% 9.6 % (0-10); NRBC Flagged by Analyzer 0 % (0-5); Neutrophil % 52.7 % (47-70); Platelet Count 237 K/mm3 (150-450); RBC Distribution Width SD 44.9 fl (35.1-43.9); Red Blood Count 4.48 M/mm3 (4.2-5.4); White Blood Count 4.4 K/mm3 (4.4-11.0)
[2021-07-17 10:25] LABS: ALB/GLOB Ratio 1.2 RATIO (0.9-2.4); AST(SGOT) 25 U/L (15-37); Alanine Aminotransfer ALT/SGPT 30 U/L (13-56); Albumin, Serum 4.2 g/dL (3.2-5.0); Alkaline Phosphatase 67 U/L (45-117); Anion Gap 7 (5-15); BUN 9 mg/dL (7-18); BUN/Creat Ratio 11.2 RATIO (10-20); Calcium,Total 9.8 mg/dL (8.5-10.1); Chloride 102 mmol/L (98-107); EST Glomerular Filtration Rate 80 mL/min (>60); Est Glom Filt Rate - Afr Amer 97 mL/min (>60); Globulin 3.5 g/dL (2.2-4.2); Glucose 62 mg/dL (74-106); Potassium 3.7 mmol/L (3.5-5.1); Protein, Total 7.7 g/dL (6.4-8.2); Sodium Level 139 mmol/L (136-145)
== END 2021-07-17 23:59 | disposition home or self-care (01) ==
LOC: MTLAB 07:09
PROVIDERS: PCP Nurse Practitioner Family; Referring Provider Internal Medicine Rheumatology; Visit Provider Internal Medicine Rheumatology
DX: M05.70 Rheumatoid arthritis with rheumatoid factor of unspecified site without organ or systems involvement (principal); M35.00 Sjogren syndrome, unspecified; M46.1 Sacroiliitis, not elsewhere classified; M18.11 Unilateral primary osteoarthritis of first carpometacarpal joint, right hand; M77.01 Medial epicondylitis, right elbow; M47.892 Other spondylosis, cervical region; R51.9 Headache, unspecified; Z79.899 Other long term (current) drug therapy
CPT/HCPCS: 36415; 80053; 85025

== ENCOUNTER → 2021-08-10 | Outpatient (CLI) | payer OTHER, SELFPAY ==
[2021-08-13 15:08] LABS: QNTFERON TB Mitogen Value > 10.00 IU/mL (.); QNTFERON TB Nil Value 0.06 IU/mL (.); QNTFERON TB1+ Ag Value 0.06 IU/mL (.); QNTFERON TB2+ Ag Value 0.06 IU/mL (.)
[2021-08-13 16:36] LABS: QNTIFERON TB Positive Criteria Negative (Negative)
== END | disposition home or self-care (01) ==
LOC: MTLAB 07:56
PROVIDERS: PCP Nurse Practitioner Family; Referring Provider Internal Medicine Rheumatology; Visit Provider Internal Medicine Rheumatology
DX: M05.70 Rheumatoid arthritis with rheumatoid factor of unspecified site without organ or systems involvement (principal); M35.00 Sjogren syndrome, unspecified; M46.1 Sacroiliitis, not elsewhere classified; M18.11 Unilateral primary osteoarthritis of first carpometacarpal joint, right hand; M77.01 Medial epicondylitis, right elbow; M47.892 Other spondylosis, cervical region; R51.9 Headache, unspecified; Z79.899 Other long term (current) drug therapy
CPT/HCPCS: 36415; 86480

== ENCOUNTER → 2021-10-16 | Outpatient (CLI) | payer OTHER, SELFPAY ==
[2021-10-16 10:22] LABS: Absolute Lymphocyte Count 1.75 X10^3/uL (0.83-4.51); Absolute Neutrophil Count 2.5 X10^3/uL (2.0-7.7); Basophil# 0.03 X10^3/uL; Basophil% 0.7 % (0-1); Eosinophil# 0.04 X10^3/uL; Eosinophils% 0.9 % (0-5); Hematocrit 44.8 % (37-47); Hemoglobin 15.1 g/dL (12.0-15.0); Lymphocyte # 1.75 X10^3/ul (0.83-4.51); Mean Corp Hgb Conc 33.7 g/dL (32-36); Mean Corpuscular Hgb 34.9 pg (27.0-32.0); Mean Corpuscular Volume 103.5 fL (81-99); Mean Platelet Vol. 10.1 fl (6.2-12.0); Monocyte% 6.5 % (0-10); NRBC Flagged by Analyzer 0 % (0-5); Neutrophil # 2.47 X10^3/uL (2.7-7.7); Neutrophil % 53.7 % (47-70); Platelet Count 206 K/mm3 (150-450); RBC Distribution Width CV 11.7 % (11.6-14.6); RBC Distribution Width SD 44.5 fl (35.1-43.9); Red Blood Count 4.33 M/mm3 (4.2-5.4); White Blood Count 4.6 K/mm3 (4.4-11.0)
[2021-10-16 11:05] LABS: ALB/GLOB Ratio 1.2 RATIO (0.9-2.4); AST(SGOT) 31 U/L (15-37); Alanine Aminotransfer ALT/SGPT 30 U/L (13-56); Albumin, Serum 4.1 g/dL (3.2-5.0); Alkaline Phosphatase 69 U/L (45-117); Anion Gap 7 (5-15); BUN 12 mg/dL (7-18); BUN/Creat Ratio 14.6 RATIO (10-20); Calcium,Total 9.7 mg/dL (8.5-10.1); Chloride 102 mmol/L (98-107); Creatinine, Serum 0.82 mg/dL (0.55-1.02); EST Glomerular Filtration Rate 78 mL/min (>60); Est Glom Filt Rate - Afr Amer 95 mL/min (>60); Globulin 3.3 g/dL (2.2-4.2); Glucose 63 mg/dL (74-106); Potassium 3.6 mmol/L (3.5-5.1); Protein, Total 7.4 g/dL (6.4-8.2); Sodium Level 140 mmol/L (136-145)
== END | disposition home or self-care (01) ==
LOC: MTLAB 07:47
PROVIDERS: PCP Nurse Practitioner Family; Referring Provider Internal Medicine Rheumatology; Visit Provider Internal Medicine Rheumatology
DX: M05.70 Rheumatoid arthritis with rheumatoid factor of unspecified site without organ or systems involvement (principal); M35.00 Sjogren syndrome, unspecified; M46.1 Sacroiliitis, not elsewhere classified; M18.11 Unilateral primary osteoarthritis of first carpometacarpal joint, right hand; M77.01 Medial epicondylitis, right elbow; M47.892 Other spondylosis, cervical region; R51.9 Headache, unspecified; Z79.899 Other long term (current) drug therapy
CPT/HCPCS: 36415; 80053; 85025

== ENCOUNTER → 2022-01-10 | Outpatient (CLI) | payer OTHER, SELFPAY ==
[2022-01-10 10:17] LABS: Absolute Neutrophil Count 2.2 X10^3/uL (2.0-7.7); Basophil# 0.02 X10^3/uL; Basophil% 0.5 % (0-1); Eosinophil# 0.02 X10^3/uL; Eosinophils% 0.5 % (0-5); Hematocrit 46.9 % (37-47); Hemoglobin 15.8 g/dL (12.0-15.0); Lymphocyte % 35.9 % (19-41); Mean Corp Hgb Conc 33.7 g/dL (32-36); Mean Corpuscular Hgb 34.6 pg (27.0-32.0); Mean Corpuscular Volume 102.6 fL (81-99); Mean Platelet Vol. 9.8 fl (6.2-12.0); Monocyte# 0.28 X10^3/uL; Monocyte% 7.2 % (0-10); NRBC Flagged by Analyzer 0 % (0-5); Neutrophil # 2.17 X10^3/uL (2.7-7.7); Neutrophil % 55.6 % (47-70); Platelet Count 244 K/mm3 (150-450); RBC Distribution Width CV 11.9 % (11.6-14.6); Red Blood Count 4.57 M/mm3 (4.2-5.4); White Blood Count 3.9 K/mm3 (4.4-11.0)
[2022-01-10 10:58] LABS: ALB/GLOB Ratio 1.2 RATIO (0.9-2.4); AST(SGOT) 28 U/L (15-37); Alanine Aminotransfer ALT/SGPT 35 U/L (13-56); Albumin, Serum 4.4 g/dL (3.2-5.0); Alkaline Phosphatase 71 U/L (45-117); Anion Gap 8 (5-15); BUN 9 mg/dL (7-18); BUN/Creat Ratio 11.9 RATIO (10-20); Calcium,Total 9.8 mg/dL (8.5-10.1); Chloride 101 mmol/L (98-107); Creatinine, Serum 0.76 mg/dL (0.55-1.02); EST Glomerular Filtration Rate 86 mL/min (>60); Est Glom Filt Rate - Afr Amer 104 mL/min (>60); Globulin 3.6 g/dL (2.2-4.2); Glucose 67 mg/dL (74-106); Potassium 3.9 mmol/L (3.5-5.1); Sodium Level 138 mmol/L (136-145)
== END | disposition home or self-care (01) ==
LOC: MTLAB 07:35
PROVIDERS: PCP Nurse Practitioner Family; Referring Provider Internal Medicine Rheumatology; Visit Provider Internal Medicine Rheumatology
DX: M05.70 Rheumatoid arthritis with rheumatoid factor of unspecified site without organ or systems involvement (principal); M35.00 Sjogren syndrome, unspecified; M46.1 Sacroiliitis, not elsewhere classified; M18.11 Unilateral primary osteoarthritis of first carpometacarpal joint, right hand; M77.01 Medial epicondylitis, right elbow; M47.892 Other spondylosis, cervical region; R51.9 Headache, unspecified; Z79.899 Other long term (current) drug therapy
CPT/HCPCS: 36415; 80053; 85025

== ENCOUNTER → 2022-02-25 | Outpatient (CLI) | payer OTHER, SELFPAY ==
[2022-02-25 12:21] LABS: Absolute Lymphocyte Count 1.48 X10^3/uL (0.83-4.51); Absolute Neutrophil Count 2.3 X10^3/uL (2.0-7.7); Basophil# 0.02 X10^3/uL; Basophil% 0.5 % (0-1); Eosinophil# 0.03 X10^3/uL; Eosinophils% 0.7 % (0-5); Hematocrit 45.1 % (37-47); Hemoglobin 15.5 g/dL (12.0-15.0); Lymphocyte # 1.48 X10^3/ul (0.83-4.51); Lymphocyte % 35.5 % (19-41); Mean Corp Hgb Conc 34.4 g/dL (32-36); Mean Corpuscular Hgb 35.6 pg (27.0-32.0); Mean Corpuscular Volume 103.4 fL (81-99); Mean Platelet Vol. 10.2 fl (6.2-12.0); Monocyte# 0.32 X10^3/uL; Monocyte% 7.7 % (0-10); NRBC Flagged by Analyzer 0 % (0-5); Neutrophil # 2.31 X10^3/uL (2.7-7.7); Neutrophil % 55.4 % (47-70); Platelet Count 227 K/mm3 (150-450); RBC Distribution Width CV 11.8 % (11.6-14.6); RBC Distribution Width SD 44.4 fl (35.1-43.9); Red Blood Count 4.36 M/mm3 (4.2-5.4); White Blood Count 4.2 K/mm3 (4.4-11.0)
[2022-02-25 13:10] LABS: ALB/GLOB Ratio 1.5 RATIO (0.9-2.4); AST(SGOT) 26 U/L (15-37); Alanine Aminotransfer ALT/SGPT 27 U/L (13-56); Albumin, Serum 4.3 g/dL (3.2-5.0); Alkaline Phosphatase 67 U/L (45-117); Anion Gap 5 (5-15); BUN 10 mg/dL (7-18); BUN/Creat Ratio 13.2 RATIO (10-20); Calcium,Total 9.6 mg/dL (8.5-10.1); Chloride 105 mmol/L (98-107); Creatinine, Serum 0.76 mg/dL (0.55-1.02); EST Glomerular Filtration Rate 86 mL/min (>60); Est Glom Filt Rate - Afr Amer 104 mL/min (>60); Globulin 2.9 g/dL (2.2-4.2); Glucose 65 mg/dL (74-106); Potassium 4.3 mmol/L (3.5-5.1); Protein, Total 7.2 g/dL (6.4-8.2); Sodium Level 140 mmol/L (136-145)
== END | disposition home or self-care (01) ==
PROVIDERS: PCP Nurse Practitioner Family; Referring Provider Internal Medicine Rheumatology; Visit Provider Internal Medicine Rheumatology
DX: M05.70 Rheumatoid arthritis with rheumatoid factor of unspecified site without organ or systems involvement (principal); M35.00 Sjogren syndrome, unspecified; Z79.899 Other long term (current) drug therapy
CPT/HCPCS: 36415; 80053; 85025

== ENCOUNTER → 2022-05-20 | Outpatient (CLI) | payer OTHER, SELFPAY ==
[2022-05-20 12:28] LABS: Absolute Lymphocyte Count 1.31 X10^3/uL (0.83-4.51); Absolute Neutrophil Count 3.4 X10^3/uL (2.0-7.7); Basophil# 0.03 X10^3/uL; Basophil% 0.6 % (0-1); Eosinophil# 0.03 X10^3/uL; Eosinophils% 0.6 % (0-5); Hematocrit 43.6 % (37-47); Hemoglobin 14.3 g/dL (12.0-15.0); Lymphocyte # 1.31 X10^3/ul (0.83-4.51); Lymphocyte % 24.9 % (19-41); Mean Corp Hgb Conc 32.8 g/dL (32-36); Mean Corpuscular Hgb 34.9 pg (27.0-32.0); Mean Corpuscular Volume 106.3 fL (81-99); Mean Platelet Vol. 9.9 fl (6.2-12.0); Monocyte# 0.48 X10^3/uL; Monocyte% 9.1 % (0-10); NRBC Flagged by Analyzer 0 % (0-5); Neutrophil # 3.41 X10^3/uL (2.7-7.7); Neutrophil % 64.6 % (47-70); Platelet Count 264 K/mm3 (150-450); White Blood Count 5.3 K/mm3 (4.4-11.0)
[2022-05-20 12:46] LABS: ALB/GLOB Ratio 1.2 RATIO (0.9-2.4); AST(SGOT) 23 U/L (15-37); Alanine Aminotransfer ALT/SGPT 31 U/L (13-56); Albumin, Serum 3.9 g/dL (3.2-5.0); Alkaline Phosphatase 67 U/L (45-117); Anion Gap 3 (5-15); BUN 11 mg/dL (7-18); BUN/Creat Ratio 15.6 RATIO (10-20); Calcium,Total 9.4 mg/dL (8.5-10.1); Chloride 108 mmol/L (98-107); EST Glomerular Filtration Rate 93 mL/min (>60); Est Glom Filt Rate - Afr Amer 113 mL/min (>60); Globulin 3.3 g/dL (2.2-4.2); Glucose 86 mg/dL (74-106); Potassium 3.9 mmol/L (3.5-5.1); Protein, Total 7.2 g/dL (6.4-8.2); Sodium Level 140 mmol/L (136-145)
== END | disposition home or self-care (01) ==
LOC: MTLAB 10:00
PROVIDERS: PCP Nurse Practitioner Family; Referring Provider Internal Medicine Rheumatology; Visit Provider Internal Medicine Rheumatology
DX: M05.79 Rheumatoid arthritis with rheumatoid factor of multiple sites without organ or systems involvement (principal); M35.00 Sjogren syndrome, unspecified; Z79.899 Other long term (current) drug therapy
CPT/HCPCS: 36415; 80053; 85025

== ENCOUNTER → 2022-08-20 | Outpatient (CLI) | payer OTHER, SELFPAY ==
[2022-08-20 10:16] LABS: Absolute Lymphocyte Count 1.29 X10^3/uL (0.83-4.51); Absolute Neutrophil Count 4.6 X10^3/uL (2.0-7.7); Basophil# 0.03 X10^3/uL; Basophil% 0.5 % (0-1); Eosinophil# 0.04 X10^3/uL; Eosinophils% 0.6 % (0-5); Hematocrit 46.2 % (37-47); Lymphocyte # 1.29 X10^3/ul (0.83-4.51); Lymphocyte % 19.9 % (19-41); Mean Corp Hgb Conc 32.5 g/dL (32-36); Mean Corpuscular Hgb 34.6 pg (27.0-32.0); Mean Corpuscular Volume 106.5 fL (81-99); Mean Platelet Vol. 10.1 fl (6.2-12.0); Monocyte# 0.52 X10^3/uL; NRBC Flagged by Analyzer 0 % (0-5); Neutrophil # 4.57 X10^3/uL (2.7-7.7); Neutrophil % 70.4 % (47-70); Platelet Count 227 K/mm3 (150-450); RBC Distribution Width CV 11.5 % (11.6-14.6); RBC Distribution Width SD 45.2 fl (35.1-43.9); Red Blood Count 4.34 M/mm3 (4.2-5.4); White Blood Count 6.5 K/mm3 (4.4-11.0)
[2022-08-20 10:59] LABS: ALB/GLOB Ratio 1.3 RATIO (0.9-2.4); AST(SGOT) 35 U/L (15-37); Alanine Aminotransfer ALT/SGPT 43 U/L (13-56); Albumin, Serum 4.2 g/dL (3.2-5.0); Alkaline Phosphatase 112 U/L (45-117); Anion Gap 8 (5-15); BUN 10 mg/dL (7-18); BUN/Creat Ratio 15.1 RATIO (10-20); Calcium,Total 9.2 mg/dL (8.5-10.1); Chloride 104 mmol/L (98-107); Creatinine, Serum 0.66 mg/dL (0.55-1.02); EST Glomerular Filtration Rate 100 mL/min (>60); Est Glom Filt Rate - Afr Amer 121 mL/min (>60); Globulin 3.2 g/dL (2.2-4.2); Glucose 62 mg/dL (74-106); Potassium 3.9 mmol/L (3.5-5.1); Protein, Total 7.4 g/dL (6.4-8.2); Sodium Level 140 mmol/L (136-145)
== END | disposition home or self-care (01) ==
LOC: MTLAB 07:10
PROVIDERS: PCP Nurse Practitioner Family; Referring Provider Internal Medicine Rheumatology; Visit Provider Internal Medicine Rheumatology
DX: M05.79 Rheumatoid arthritis with rheumatoid factor of multiple sites without organ or systems involvement (principal); M35.00 Sjogren syndrome, unspecified; Z79.899 Other long term (current) drug therapy
CPT/HCPCS: 36415; 80053; 85025

== ENCOUNTER → 2022-11-05 | Outpatient (CLI) | payer OTHER, SELFPAY ==
[2022-11-05 10:11] LABS: Absolute Lymphocyte Count 1.28 X10^3/uL (0.83-4.51); Basophil# 0.02 X10^3/uL; Basophil% 0.4 % (0-1); Eosinophil# 0.08 X10^3/uL; Eosinophils% 1.7 % (0-5); Hematocrit 47.9 % (37-47); Lymphocyte # 1.28 X10^3/ul (0.83-4.51); Lymphocyte % 27.3 % (19-41); Mean Corp Hgb Conc 33.4 g/dL (32-36); Mean Corpuscular Hgb 34.3 pg (27.0-32.0); Mean Corpuscular Volume 102.6 fL (81-99); Mean Platelet Vol. 9.8 fl (6.2-12.0); Monocyte# 0.35 X10^3/uL; Monocyte% 7.5 % (0-10); NRBC Flagged by Analyzer 0 % (0-5); Neutrophil # 2.95 X10^3/uL (2.7-7.7); Neutrophil % 62.9 % (47-70); Platelet Count 238 K/mm3 (150-450); RBC Distribution Width CV 11.7 % (11.6-14.6); RBC Distribution Width SD 43.9 fl (35.1-43.9); Red Blood Count 4.67 M/mm3 (4.2-5.4); White Blood Count 4.7 K/mm3 (4.4-11.0)
[2022-11-05 10:41] LABS: ALB/GLOB Ratio 1.2 RATIO (0.9-2.4); AST(SGOT) 31 U/L (15-37); Alanine Aminotransfer ALT/SGPT 33 U/L (13-56); Albumin, Serum 4.1 g/dL (3.2-5.0); Alkaline Phosphatase 81 U/L (45-117); Anion Gap 5 (5-15); BUN 9 mg/dL (7-18); BUN/Creat Ratio 10.7 RATIO (10-20); Calcium,Total 9.6 mg/dL (8.5-10.1); Chloride 107 mmol/L (98-107); Creatinine, Serum 0.84 mg/dL (0.55-1.02); EST Glomerular Filtration Rate 76 mL/min (>60); Est Glom Filt Rate - Afr Amer 92 mL/min (>60); Globulin 3.4 g/dL (2.2-4.2); Glucose 74 mg/dL (74-106); Protein, Total 7.5 g/dL (6.4-8.2); Sodium Level 140 mmol/L (136-145)
== END | disposition home or self-care (01) ==
LOC: MTLAB 07:36
PROVIDERS: PCP Nurse Practitioner Family; Referring Provider Internal Medicine Rheumatology; Visit Provider Internal Medicine Rheumatology
DX: M05.70 Rheumatoid arthritis with rheumatoid factor of unspecified site without organ or systems involvement (principal); Z79.899 Other long term (current) drug therapy
CPT/HCPCS: 36415; 80053; 85025

== ENCOUNTER → 2023-02-24 | Outpatient (CLI) | payer OTHER, SELFPAY ==
[2023-02-27 17:07] LABS: Lyme IgG P18 Ab Present (.); Lyme IgG P23 Ab Absent (.); Lyme IgG P28 Ab Absent (.); Lyme IgG P30 Ab Absent (.); Lyme IgG P39 Ab Present (.); Lyme IgG P41 Ab Present (.); Lyme IgG P45 Ab Present (.); Lyme IgG P58 Ab Present (.); Lyme IgG P66 Ab Absent (.); Lyme IgG P93 Ab Present (.); Lyme IgG WB Interpretation Positive (.); Lyme IgM P23 Ab Present (.); Lyme IgM P39 Ab Present (.); Lyme IgM P41 Ab Present (.); Lyme IgM WB Interpretation Positive (.)
== END | disposition home or self-care (01) ==
LOC: MTLAB 12:49
PROVIDERS: PCP Nurse Practitioner Family; Referring Provider Internal Medicine Rheumatology; Visit Provider Internal Medicine Rheumatology
DX: M05.79 Rheumatoid arthritis with rheumatoid factor of multiple sites without organ or systems involvement (principal); M35.00 Sjogren syndrome, unspecified; M18.11 Unilateral primary osteoarthritis of first carpometacarpal joint, right hand; Z79.899 Other long term (current) drug therapy
CPT/HCPCS: 36415; 86617

== ENCOUNTER → 2023-05-19 | Outpatient (CLI) | payer OTHER, SELFPAY ==
[2023-05-19 10:55] LABS: Erythrocyte Sedimentation Rate < 1 mm/hr (0-30)
[2023-05-19 10:56] LABS: Absolute Lymphocyte Count 1.09 X10^3/uL (0.83-4.51); Absolute Neutrophil Count 1.5 X10^3/uL (2.0-7.7); Basophil# 0.02 X10^3/uL; Basophil% 0.7 % (0-1); Eosinophil# 0.03 X10^3/uL; Hematocrit 44.5 % (37-47); Lymphocyte # 1.09 X10^3/ul (0.83-4.51); Lymphocyte % 36.6 % (19-41); Mean Corp Hgb Conc 33.7 g/dL (32-36); Mean Corpuscular Hgb 34.2 pg (27.0-32.0); Mean Corpuscular Volume 101.4 fL (81-99); Mean Platelet Vol. 10.4 fl (6.2-12.0); Monocyte# 0.32 X10^3/uL; Monocyte% 10.7 % (0-10); NRBC Flagged by Analyzer 0 % (0-5); Neutrophil # 1.51 X10^3/uL (2.7-7.7); Neutrophil % 50.7 % (47-70); Platelet Count 213 K/mm3 (150-450); RBC Distribution Width CV 11.8 % (11.6-14.6); RBC Distribution Width SD 43.5 fl (35.1-43.9); Red Blood Count 4.39 M/mm3 (4.2-5.4)
[2023-05-19 11:13] LABS: ALB/GLOB Ratio 1.5 RATIO (0.9-2.4); AST(SGOT) 36 U/L (15-37); Alanine Aminotransfer ALT/SGPT 37 U/L (13-56); Albumin, Serum 4.1 g/dL (3.2-5.0); Alkaline Phosphatase 54 U/L (45-117); Anion Gap 4 (5-15); BUN 8 mg/dL (7-18); BUN/Creat Ratio 11.3 RATIO (10-20); CRP < 2.90 mg/L (0.0-3.0); Calcium,Total 9.2 mg/dL (8.5-10.1); Chloride 107 mmol/L (98-107); Creatinine, Serum 0.71 mg/dL (0.55-1.02); EST Glomerular Filtration Rate 92 mL/min (>60); Est Glom Filt Rate - Afr Amer 111 mL/min (>60); Globulin 2.8 g/dL (2.2-4.2); Glucose 72 mg/dL (74-106); Potassium 3.8 mmol/L (3.5-5.1); Protein, Total 6.9 g/dL (6.4-8.2); Sodium Level 140 mmol/L (136-145)
== END | disposition home or self-care (01) ==
PROVIDERS: PCP Student in an Organized Health Care Education/Training Program; Referring Provider Internal Medicine Rheumatology; Visit Provider Internal Medicine Rheumatology
DX: M05.79 Rheumatoid arthritis with rheumatoid factor of multiple sites without organ or systems involvement (principal); Z79.899 Other long term (current) drug therapy
CPT/HCPCS: 36415; 80053; 85025; 85652; 86140

== ENCOUNTER → 2023-08-04 | Outpatient (CLI) | payer OTHER, SELFPAY ==
[2023-08-04 17:29] LABS: Absolute Lymphocyte Count 1.99 X10^3/uL (0.83-4.51); Absolute Neutrophil Count 1.7 X10^3/uL (2.0-7.7); Basophil# 0.02 X10^3/uL; Basophil% 0.5 % (0-1); Eosinophil# 0.03 X10^3/uL; Eosinophils% 0.7 % (0-5); Hematocrit 46.9 % (37-47); Lymphocyte # 1.99 X10^3/ul (0.83-4.51); Lymphocyte % 48.4 % (19-41); Mean Corp Hgb Conc 34.1 g/dL (32-36); Mean Corpuscular Hgb 34.9 pg (27.0-32.0); Mean Corpuscular Volume 102.2 fL (81-99); Mean Platelet Vol. 9.5 fl (6.2-12.0); Monocyte# 0.34 X10^3/uL; Monocyte% 8.3 % (0-10); NRBC Flagged by Analyzer 0 % (0-5); Neutrophil # 1.72 X10^3/uL (2.7-7.7); Neutrophil % 41.9 % (47-70); Platelet Count 237 K/mm3 (150-450); RBC Distribution Width SD 45.3 fl (35.1-43.9); Red Blood Count 4.59 M/mm3 (4.2-5.4); White Blood Count 4.1 K/mm3 (4.4-11.0)
[2023-08-04 18:01] LABS: ALB/GLOB Ratio 1.4 RATIO (0.9-2.4); AST(SGOT) 33 U/L (15-37); Alanine Aminotransfer ALT/SGPT 33 U/L (13-56); Albumin, Serum 4.4 g/dL (3.2-5.0); Alkaline Phosphatase 83 U/L (45-117); Anion Gap 6 (5-15); BUN 9 mg/dL (7-18); BUN/Creat Ratio 13.4 RATIO (10-20); Calcium,Total 9.6 mg/dL (8.5-10.1); Chloride 105 mmol/L (98-107); Creatinine, Serum 0.67 mg/dL (0.55-1.02); EST Glomerular Filtration Rate 98 mL/min (>60); Est Glom Filt Rate - Afr Amer 118 mL/min (>60); Globulin 3.2 g/dL (2.2-4.2); Glucose 98 mg/dL (74-106); Potassium 3.9 mmol/L (3.5-5.1); Protein, Total 7.6 g/dL (6.4-8.2); Sodium Level 139 mmol/L (136-145)
== END | disposition home or self-care (01) ==
PROVIDERS: PCP Student in an Organized Health Care Education/Training Program; Referring Provider Internal Medicine Rheumatology; Visit Provider Internal Medicine Rheumatology
DX: M05.79 Rheumatoid arthritis with rheumatoid factor of multiple sites without organ or systems involvement (principal); Z79.899 Other long term (current) drug therapy
CPT/HCPCS: 36415; 80053; 85025

== ENCOUNTER → 2023-11-04 | Outpatient (CLI) | payer OTHER, SELFPAY ==
[2023-11-04 12:05] LABS: Absolute Lymphocyte Count 1.04 X10^3/uL (0.83-4.51); Basophil# 0.02 X10^3/uL; Basophil% 0.4 % (0-1); Eosinophil# 0.05 X10^3/uL; Eosinophils% 1.1 % (0-5); Hematocrit 45.4 % (37-47); Hemoglobin 15.3 g/dL (12.0-15.0); Lymphocyte # 1.04 X10^3/ul (0.83-4.51); Lymphocyte % 22.2 % (19-41); Mean Corp Hgb Conc 33.7 g/dL (32-36); Mean Corpuscular Volume 103.9 fL (81-99); Mean Platelet Vol. 9.8 fl (6.2-12.0); Monocyte# 0.51 X10^3/uL; Monocyte% 10.9 % (0-10); NRBC Flagged by Analyzer 0 % (0-5); Neutrophil # 3.04 X10^3/uL (2.7-7.7); Platelet Count 224 K/mm3 (150-450); RBC Distribution Width CV 11.9 % (11.6-14.6); RBC Distribution Width SD 44.8 fl (35.1-43.9); Red Blood Count 4.37 M/mm3 (4.2-5.4); White Blood Count 4.7 K/mm3 (4.4-11.0)
[2023-11-04 12:24] LABS: ALB/GLOB Ratio 1.5 RATIO (0.9-2.4); AST(SGOT) 37 U/L (15-37); Alanine Aminotransfer ALT/SGPT 38 U/L (13-56); Albumin, Serum 4.3 g/dL (3.2-5.0); Alkaline Phosphatase 68 U/L (45-117); Anion Gap 6 (5-15); BUN 12 mg/dL (7-18); BUN/Creat Ratio 17.3 RATIO (10-20); Calcium,Total 9.6 mg/dL (8.5-10.1); Chloride 105 mmol/L (98-107); Creatinine, Serum 0.69 mg/dL (0.55-1.02); EST Glomerular Filtration Rate 94 mL/min (>60); Est Glom Filt Rate - Afr Amer 114 mL/min (>60); Globulin 2.8 g/dL (2.2-4.2); Glucose 65 mg/dL (74-106); Potassium 4.5 mmol/L (3.5-5.1); Protein, Total 7.1 g/dL (6.4-8.2); Sodium Level 139 mmol/L (136-145)
== END | disposition home or self-care (01) ==
LOC: MTLAB 09:56
PROVIDERS: PCP Student in an Organized Health Care Education/Training Program; Referring Provider Internal Medicine Rheumatology; Visit Provider Internal Medicine Rheumatology
DX: M05.79 Rheumatoid arthritis with rheumatoid factor of multiple sites without organ or systems involvement (principal); M18.11 Unilateral primary osteoarthritis of first carpometacarpal joint, right hand; Z79.899 Other long term (current) drug therapy
CPT/HCPCS: 36415; 80053; 85025

== ENCOUNTER → 2024-01-26 | Outpatient (CLI) | payer OTHER, SELFPAY ==
--- OUTSIDE RECORDS SUMMARY | 2024-01-26 07:20 | XMS RPT_ITS | CCD ---
Author Organization [facility] Care Team Providers Care Operations Administrative Assistant Name Role Phone Susannah MERCHANDISE CLERK.Shashi ORTEGA Primary Care Provider Jan George DO Primary Care Provider [phone] [facility] MERCHANDISE CLERK.Shashi ORTEGA Primary Care Provider ARIEL, JAN L Referring Unavailable GEORGE, JAN L Primary Care Unavailable TWARDY, RADHA Referring Unavailable GEORGE, JAN L Primary Care Unavailable George DO, Jan L Primary Care Provider GEORGE, JAN Primary Care Unavailable GEORGE, JAN Referring Unavailable GEORGE, JAN Referring Unavailable GEORGE, JAN Primary Care Unavailable GEORGE, JAN Primary Care Unavailable GEORGE, JAN Attending Unavailable GEORGE, JAN Primary Care Unavailable GEORGE, JAN Primary Care Unavailable JEROME ENG Referring Unava ilable ANDRAE BALL Attending Unavailable DAYDAY SAGE Attending Unavailable GEORGE, JAN Primary Care Unavailable BAHNTGEJEROME Referring Unava ilable BAHNTGEJEROME Referring Unava ilable GEORGE, JAN Primary Care Unavailable GEORGE, JAN Primary Care Unavailable BAHNTGEJEROME VAISHALI Referring Unava ilable BOLAARDY, RADHA Referring Unavailable TWARDY, RADHA Attending Unavailable GEORGE, JAN Primary Care Unavailable GEORGE, JAN Referring Unavailable TWARDY, RADHA Attending Unavailable GEORGE, JAN Primary Care Unavailable GEORGE, JAN Attending Unavailable GEORGE, JAN Primary Care Unavailable GEORGE, JAN Referring Unavailable GEORGE, JAN Primary Care Unavailable GEORGE, JAN Referring Unavailable GEORGE, JAN Primary Care Unavailable KENDRA MILLAN Attending Unavailable GEORGE, JAN Referring Unavailable GEORGE, JAN Primary Care Unavailable GEORGE, JAN Primary Care Unavailable BAHNTGE, JEROME TOM Referring Unava ilable GEORGE, JAN Primary Care Unavailable BAHNTGEJEROME Attending Unava ilable GEORGE, JAN Primary Care Unavailable ARLEN CEDILLO Referring Unavailable GEORGE, JAN Primary Care Unavailable GEORGE, JAN Attending Unavailable GEORGE, JAN Referring Unavailable GEORGE, JAN Primary Care Unavailable GEORGE, JAN Primary Care Unavailable BAHNTGE, JEROME TOM Referring Unava ilable GEORGE, JAN Primary Care Unavailable BAHNTGE, JEROME TOM Referring Unava ilable GEORGE, JAN Primary Care Unavailable BAHNTGE, JEROME TOM Referring Unava ilable GEORGE, JAN Referring Unavailable GEORGE, JAN Primary Care Unavailable GEORGE, JAN Primary Care Unavailable GEORGE, JAN Attending Unavailable SENDY CANTRELL Attending Unavailable GEORGE, JAN Primary Care Unavailable RADHA FLETCHER Referring Unavailable GEORGE, JAN Primary Care Unavailable BAHJEROME ROSENTHAL Attending Unava ilable BAHNTGE, JEROME TOM Referring Unava ilable ANDRAE BALL Attending Unavailable GEORGE, JAN Primary Care Unavailable DAYDAY SAGE Attending Unavailable GEORGE, JAN Primary Care Unavailable BAHNTGE, JEROME TOM Referring Unava ilable Allergies Allergy Classification Reported Allergen(s) Allergy Type Date of Onset Reaction(s) Facility (20 sources) Azithromycin; Translations: [AZITHROMYCIN] Drug Allergy 7 Diarrhea, Vomiting [facility] Work Phone: (20 sources) guaiFENesin; Translations: [GUAIFENESIN] Drug Allergy 5 Swelling [facility] (20 sources) Ofloxacin; Translations: [OFLOXACIN] Drug Allergy 5 Intolerance [facility] (20 sources) Solifenacin; Translations: [SOLIFENACIN SUCCINATE] Drug Allergy 8 Swelling [facility] Work Phone: (20 sources) Sulfonamides (Antibiotic); Translations: [SULFA (SULFONAMIDE ANTIBIOTICS)] Drug Allergy 5 [facility] (20 sources) BENZOL PEROXIDE [Other] Propensity to adverse reactions 5 Rash [facility] (20 sources) emycins [Other] Propensity to adverse reactions 5 Swelling [facility] (20 sources) Cetylpyridinium- Benzocaine; Translations: [CETYLPYRIDINIUM -BENZOCAINE] Propensity to adverse reactions 5 Intolerance [facility] (20 sources) Erythromycin; Translations: [ERYTHROMYCIN] Drug Allergy 3 Vomiting [facility] Work Phone: (1 source) OTHER; Translations: [OTHER] Propensity to adverse reactions (disorder) 5 [facility] Medications Current Medications Medication Drug Class(es) Dates Sig (Normalized) Sig (Original) 8 hr acetaminophen 650 mg extended release oral tablet (20 sources) Start: 11-14-2005 TYLENOL ARTHRITIS 650 MG TAB two tabs twice daily 0 11/14/2005 Active Comment on above: two tabs twice daily amoxicillin 875 mg / clavulanate 125 mg oral tablet (1 source) Penicillin-class Antibacterial Start: 01-16-2024 End: 01-23-2024 take 1 tablet by mouth twice daily amoxicillin-clavu lanate potassium (AUGMENTIN) 875-125 mg per tablet Indications: Bacterial sinusitis Take 1 tablet by mouth two times a day for 7 days. 14 tablet 01/16/2024 01/23/2024 Active BERBERINE CHLORIDE ORAL (2 sources) BERBERINE CHLORIDE ORAL Take by mouth. Active calcium carbonate 1500 mg / cholecalciferol 200 unt oral tablet (20 sources) Vitamin D Start: 09-07-2009 calcium carbonate/vitamin d3(CALCIUM 600 + D(3) 600 MG (1,500)-200 UNIT TAB) Take one(1) tablet twice daily. 0 09/07/2009 Active Comment on above: Take one(1) tablet t wice daily. cephalexin 500 mg oral capsule (12 sources) Cephalosporin Antibacterial Start: 02-12-2023 End: 02-22-2023 take 1 capsule by mouth four times daily cephALEXin (KEFLEX) 500 mg capsule Indications: Left hip pain , Fever, unspecified fever cause , Fatigue, unspecified type , Hip swelling, left , Rash , Macular erythematous rash , Localized swelling, mass, or lump of left lower extremity Take 1 capsule by mouth four times daily for 10 days. 40 capsule 0 02/12/2023 02/22/2023 Active Start: 01-06-2023 End: 01-23-2023 take 1 capsule by mouth four times daily cephALEXin (KEFLEX) 500 mg capsule Take 1 capsule by mouth four times daily for 7 days. 28 capsule 0 01/16/2023 01/23/2023 Active Start: 12-09-2022 End: 12-19-2022 take 1 capsule by mouth four times daily cephALEXin (KEFLEX) 500 mg capsule Take 1 capsule by mouth four times daily for 10 days. 40 capsule 0 12/09/2022 12/19/2022 Active Comment on above: Take 1 capsule by mo ut four times daily for 10 days. Take 1 capsule by mo ut four times daily for 7 days. certolizumab pegol (6 sources) Start: 10-06-2014 End: 12-10-2021 CERTOLIZUMAB PEGOL (CIMZIA SUBCUTANEOUS) Inject subcutaneously. 0 10/06/2014 12/10/2021 Discontinued Start: 10-06-2014 CERTOLIZUMAB P EGOL (CIMZIA SUBCUTANEOUS) Inject subcutaneously. 0 10/06/2014 Active Comment on above: Inject subcutaneousl y. cyanocobalamin, vitamin B-12 , (VITAMIN B12 ORAL) (20 sources) cyanocobalamin, vitamin B-12, (VITAMIN B12 ORAL) Take by mouth. Active cyanocobalamin, vitamin B-12, (VITAMIN B12 ORAL) Take by mouth. 0 Active Comment on above: Take by mouth. doxycycline hyclate 100 mg oral tablet (6 sources) Tetracycline-cla ss Drug Start: 07-24-2023 End: 08-03-2023 take 1 tablet by mouth twice daily doxycycline (VIBRA-TABS) 100 mg tablet Indications: Tick bite of left foot, initial encounter , Lyme disease Take 1 tablet by mouth two times a day for 10 days. 20 tablet 0 07/24/2023 08/03/2023 Active Start: 03-05-2023 End: 04-04-2023 take 1 tablet by mouth twice daily doxycycline (VIBRA-TABS) 100 mg tablet Indications: Lyme disease , Left hip pain , Fever, unspecified fever cause , Fatigue, unspecified type Take 1 tablet by mouth two times a day. 60 tablet 0 03/05/2023 04/04/2023 Active Comment on above: Take 1 tablet by padmini two times a day. esomeprazole 40 mg delayed release oral capsule (20 sources) Proton Pump Inhibitor Start: take 1 capsule by mouth once daily esomeprazole (NEXIUM) 40 mg ORAL CpDR Take one(1) capsule daily. 0 01/21/2007 Active Comment on above: Take one(1) capsule daily. estradiol 0.01 mg vaginal insert (20 sources) Estrogen Start: End: estradiol 10 mcg vaginal suppository maintenance pack (IMVEXXY) Use 1 Suppository vaginally two times a week. 24 Suppository 5 05/16/2023 Active Start: 12-10-2021 End: 12-10-2021 estradiol (IMVEXXY STARTER P ACK) 10 mcg InPk INSERT 1 SUPPOSITORY VAGINALLY ONCE DAILY TWICE A WEEK 36 Suppository 0 12/10/2021 12/10/2021 Discontinued Start: 09-26-2021 End: 12-10-2021 estradiol 10 mcg vaginal sup pository starter pack (IMVEXXY) Insert one insert (10 mcg) vaginally once daily twice a week 54 Suppository 0 09/26/2021 12/10/2021 Discontinued Start: 09-26-2021 estradiol 10 m cg vaginal suppository starter pack (IMVEXXY) Insert one insert (10 mcg) vaginally once daily twice a week 54 Suppository 0 09/26/2021 Active Start: 09-26-2021 End: 10-24-2021 estradiol 10 mcg vaginal sup pository starter pack (IMVEXXY) Insert one insert (10 mcg) vaginally once daily twice a week 54 Suppository 0 09/26/2021 10/24/2021 Active Start: 04-12-2021 End: 09-26-2021 estradiol 10 mcg vaginal sup pository starter pack (IMVEXXY) Insert one insert (10 mcg) vaginally once daily twice a week 54 Suppository 0 04/12/2021 09/26/2021 Discontinued Comment on above: Insert one insert (1 0 mcg) vaginally once daily twice a week INSERT 1 SUPPOSITORY VAGINALLY ONCE DAILY TWICE A WEEK Use 1 Suppository va ginally two times a week. fluconazole 150 mg oral tablet (3 sources) Azole Antifungal Start: 01-16-2024 fluconazole (DIFLUCAN) 150 mg tablet Indications: Antibiotic-induced yeast infection Take one if yeast develops then may repeat in three days 2 tablet 01/16/2024 Active Start: 07-24-2023 End: 07-24-2023 fluconazole (DIFLUCAN) 150 m g tablet Take 1 tablet by mouth one time only for 1 dose. Repeat in 3 days as needed. 2 tablet 0 07/24/2023 07/24/2023 Active Start: 03-05-2023 End: 03-05-2023 fluconazole (DIFLUCAN) 150 m g tablet Indications: Lyme disease Take 1 tablet by mouth one time only for 1 dose. Repeat in 3 days as needed for yeast infection 2 tablet 1 03/05/2023 03/05/2023 Comment on above: Take 1 tablet by padmini one time only for 1 dose. Repeat in 3 days as needed for yeast infection folic acid 1 mg oral tablet (20 sources) Start: 2008 FOLIC ACID 1 MG TAB Take one(1) tablet daily. 0 09/06/2008 Active Comment on above: Take one(1) tablet d aily. hydroxychloroquine sulfate 200 mg oral tablet (20 sources) Antimalarial, Antirheumatic Agent Start: 2005 PLAQUENIL 200 MG TAB Take one tablet daily with breakfast and 1/2 tablet in the evening with dinner 135 3 11/14/2005 Active Comment on above: Take one tablet mich y with breakfast and 1/2 tablet in the evening with dinner levothyroxine sodium 0.112 mg oral tablet (20 sources) l-Thyroxine Start: 2023 take 1 tablet by mouth once daily for thyroid dysfunction levothyroxine (LEVOXYL) 112 mcg tablet Indications: Hypothyroidism due to acquired atrophy of thyroid Take 1 tablet by mouth once daily. Take on empty stomach. For Thyroid. 90 tablet 1 12/10/2023 Active Start: 12-09-2022 End: 12-10-2023 take 1 tablet by mouth once daily for thyroid dysfunction levothyroxine (LEVOXYL) 100 mcg tablet Indications: Hypothyroidism due to acquired atrophy of thyroid Take 1 tablet by mouth once daily. Take on empty stomach. For Thyroid. 90 tablet 1 10/17/2023 12/10/2023 Discontinued Start: 12-10-2021 End: 12-09-2022 take 1 tablet by mouth once daily levothyroxine (SYNTHROID) 88 mcg tablet Indications: Hypothyroidism due to acquired atrophy of thyroid Take 1 tablet by mouth once daily. Take on empty stomach. 90 tablet 1 01/24/2022 06/10/2022 Discontinued Start: 05-18-2021 End: 12-10-2021 SYNTHROID 75 mcg tablet Indications: Hypothyroidism due to acquired atrophy of thyroid TAKE 1 TABLET ONCE DAILY 90 tablet 1 12/05/2021 12/10/2021 Discontinued Comment on above: Take 1 tablet by padmini th once daily. TAKE 1 TABLET ONCE D AILY Take 1 tablet by padmini th once daily. Take on empty stomach. Take 1 tablet by padmini th once daily. Take on empty stomach. For Thyroid. Take 1 tablet by padmini th daily before breakfast. Take on empty stomach. For Thyroid. liothyronine sodium 0.005 mg oral tablet (20 sources) l-Triiodothyron ine Start: 3 End: 4 take 2 tablets by mouth once daily liothyronine (CYTOMEL) 5 mcg tablet Indications: Hypothyroidism due to acquired atrophy of thyroid Take 2 tablets by mouth daily in the late afternoon. 180 tablet 1 12/02/2023 Active Start: 06-10-2022 End: 12-09-2022 take 1 tablet by mouth once daily liothyronine (CYTOMEL) 5 mcg tablet Indications: Hypothyroidism due to acquired atrophy of thyroid Take 1 tablet by mouth daily in the late afternoon. 90 tablet 1 06/10/2022 12/09/2022 Discontinued Comment on above: Take 1 tablet by padmini th daily in the late afternoon. Take 2 tablets by mo uth daily in the late afternoon. Take 2 tablets by mo uth daily in the late afternoon for 7 days. lysine 500 mg oral tablet (20 sources) Start: 06-13-19 07 L-LYSINE 500 MG TAB 2 tabs daily 0 06/12/2006 Active Comment on above: 2 tabs daily methotrexate 2.5 mg oral tablet (20 sources) Folate Analog Metabolic Inhibitor Start: 09-13-19 11 take 7 tablets by mouth every week methotrexate 2.5 mg ORAL tablet Take by mouth. Take 7 tablets a week 0 09/12/2010 Active Comment on above: Take by mouth. Take 7 tablets a week montelukast 10 mg oral tablet (20 sources) Leukotriene Receptor Antagonist Start: 05-18-19 End: 11-13-19 take 1 tablet by mouth once daily at bedtime montelukast (SINGULAIR) 10 mg tablet Indications: Sicca syndrome (HCC) Take 1 tablet by mouth daily at bedtime. 90 tablet 2 11/13/2023 Active Comment on above: Take 1 tablet by padmini th daily at bedtime. ondansetron 4 mg disintegrating oral tablet (20 sources) Serotonin-3 Receptor Antagonist Start: 03-05-20 take 1 tablet by mouth every eight hours as needed for nausea ondansetron orally disintegrating (ZOFRAN ODT) 4 mg disintegrating tablet Indications: Lyme disease Take 1 tablet by mouth every 8 hours as needed for nausea/vomiting. 30 tablet 03/05/2023 Active Comment on above: Take 1 tablet by padmini th every 8 hours as needed for nausea/vomiting. predniSONE 10 mg oral tablet (20 sources) Start: 02-13-20 End: 02-24-20 take 3 tablets by mouth once daily, then take 2 tablets by mouth once daily, then take 1 tablet by mouth once daily predniSONE (DELTASONE) 10 mg tablet Indications: Left hip pain , Fever, unspecified fever cause , Fatigue, unspecified type , Hip swelling, left , Rash , Macular erythematous rash , Localized swelling, mass, or lump of left lower extremity Take 3 tablets by mouth once daily for 4 days, THEN 2 tablets once daily for 4 days, THEN 1 tablet once daily for 4 days. 24 tablet 0 02/12/2023 02/23/2023 Active Start: 01-06-2023 End: 01-17-2023 take 3 tablets by mouth once daily, then take 2 tablets by mouth once daily, then take 1 tablet by mouth once daily predniSONE (DELTASONE) 10 mg tablet Indications: Rash Take 3 tablets by mouth once daily for 4 days, THEN 2 tablets once daily for 4 days, THEN 1 tablet once daily for 4 days. 24 tablet 0 01/06/2023 01/17/2023 Active Start: 12-09-2022 End: 12-21-2022 take 3 tablets by mouth once daily, then take 2 tablets by mouth once daily, then take 1 tablet by mouth once daily predniSONE (DELTASONE) 10 mg tablet Indications: Rash Take 3 tablets by mouth once daily for 4 days, THEN 2 tablets once daily for 4 days, THEN 1 tablet once daily for 4 days. 24 tablet 0 12/09/2022 12/21/2022 Active Start: 09-06-2008 End: 06-10-2022 PREDNISONE 10 MG TAB as need ed 0 09/06/2008 06/10/2022 Discontinued Comment on above: as needed Take 3 tablets by mo [facility] once daily for 4 days, THEN 2 tablets once daily for 4 days, THEN 1 tablet once daily for 4 days. THERAPEUTIC MULTIVITAMIN TAB (20 sources) Start: 7 THERAPEUTIC MULTIVITAMIN TAB Take one(1) tablet daily. 0 06/12/2006 Active Comment on above: Take one(1) tablet d aily. 24 hr tofacitinib 11 mg extended release oral tablet (20 sources) Start: 3 tofacitinib (XELJANZ XR) 11 mg tablet, extended release 04/12/2022 Active traMADol hydrochloride 50 mg oral tablet (20 sources) Opioid Agonist Start: 2 take 1 tablet by mouth at bedtime traMADOL 50 mg ORAL tablet Take 1 tablet by mouth. @ bedtime 0 04/02/2011 Active Comment on above: Take 1 tablet by padminiwvumedicine [facility]. @ bedtime turmeric/turmeric ext/pepr ext (TURMERIC-TURMERIC EXT-PEPPER ORAL) (2 sources) turmeric/turmeri c ext/pepr ext (TURMERIC-TURMERIC EXT-PEPPER ORAL) Take by mouth. Active Completed/Discontinued Medications Medication Drug Class(es) Dates Sig (Normalized) Sig (Original) abatacept (7 sources) Selective T Cell Costimulation Modulator End: 06-10-2022 inject 1 mL by subcutaneous injection every week abatacept (ORENCIA CLICKJECT SUBCUTANEOUS) Inject 1 mL subcutaneously one time a week. 125mg/ml once weekly 0 06/10/2022 Discontinued inject 1 mL by subcu taneous injection every week abatacept (ORENCIA CLICKJECT SUBCUTANEOU S) Inject 1 mL subcutaneously one time a week. 125mg/ml once weekly 0 Active Comment on above: Inject 1 mL subcutan eously one time a week. 125mg/ml once weekly Problems Active Problems Problem Classification Problem Date Documented Date Episodic/Chronic Disorders of lipid metabolism (20 sources) Dyslipidemia; Translations: [Hyperlipidemia, unspecified] Onset: 06-09-2023 06-09-2023 Chronic Esophageal disorders (20 sources) Gastroesophageal reflux disease; Translations: [Gastro-esophageal reflux disease without esophagitis] Onset: 07-26-2015 07-26-2015 Chronic Immunizations and screening for infectious disease (1 source) Requires diphtheria, tetanus and pertussis vaccination; Translations: [Encounter for immunization] Episodic Menopausal disorders (20 sources) Atrophy of vagina; Translations: [Postmenopausal atrophic vaginitis] Onset: 05-16-2023 Chronic Mycoses (1 source) Opportunistic mycosis; Translations: [Candidiasis, unspecified] 01-16-2024 Episodic Nutritional deficiencies (20 sources) Vitamin D deficiency; Translations: [Vitamin D deficiency, unspecified] Onset: 06-04-2023 12-09-2022 Chronic Other circulatory disease (1 source) Elevated blood-pressure reading without diagnosis of hypertension; Translations: [Elevated blood-pressure reading, without diagnosis of hypertension] 07-24-2023 Episodic Other endocrine disorders (3 sources) Hypoglycemia; Translations: [Hypoglycemia, unspecified] Onset: 12-10-2023 12-10-2023 Chronic Other hematologic conditions (1 source) MCV - raised; Translations: [Other abnormality of red blood cells] 12-09-2022 Episodic Other inflammatory condition of skin (3 sources) Erythematous rash; Translations: [Other specified erythematous conditions] 02-12-2023 Episodic Other nervous system disorders (2 sources) Numbness of lower limb ; Translations: [Anesthesia of skin] 05-05-2023 Episodic Other non-traumatic joint disorders (3 sources) Hip joint effusion; Translations: [Effusion, left hip] 02-12-2023 Episodic Other skin disorders (5 sources) Eruption; Translations: [Rash and other nonspecific skin eruption] 12-09-2022 Episodic Other skin disorders (2 sources) Disorder of left lower extremity; Translations: [Localized swelling, mass and lump, left lower limb] 02-12-2023 Episodic Other skin disorders (1 source) Localized swelling, mass and lump, left lower limb; Translations: [Localized swelling, mass, or lump of left lower extremity] Onset: 02-13-2023 Episodic Other upper respiratory infections (1 source) Bacterial sinusitis; Translations: [Chronic sinusitis, unspecified] 01-16-2024 Chronic Residual codes; unclassified (1 source) Menopause present; Translations: [Asymptomatic menopausal state] Episodic Residual codes; unclassified (1 source) History of hepatitis B vaccination; Translations: [Personal history of other drug therapy] Episodic Residual codes; unclassified (3 sources) Bilateral lower limb edema; Translations: [Localized edema] Onset: 12-10-2023 12-10-2023 Episodic Rheumatoid arthritis and related disease (20 sources) Rheumatoid arthritis of multiple joints; Translations: [Rheumatoid arthritis, unspecified] Onset: 05-23-2015 05-23-2015 Chronic Systemic lupus erythematosus and connective tissue disorders (20 sources) Mucous membrane dryness; Translations: [Sicca syndrome, unspecified] Onset: 01-21-2007 Chronic Thyroid disorders (20 sources) Hypothyroidism; Translations: [Hypothyroidism, unspecified] Onset: 07-12-2005 Resolved: 03-23-2015 03-23-2015 Chronic Past or Other Problems Problem Classification Problem Date Documented Date Episodic/Chronic Biliary tract disease (13 sources) Chronic cholecystitis; Translations: [Chronic cholecystitis] Onset: 5 Resolved: 5 03-06-2015 Episodic E Codes: Natural/environment (4 sources) Tick bite; Translations: [Bitten or stung by nonvenomous insect and other nonvenomous arthropods, sequela] Onset: 3 05-05-2023 Episodic Fever of unknown origin (6 sources) Fever; Translations: [Fever, unspecified] Onset: 3 02-12-2023 Episodic Malaise and fatigue (16 sources) Fatigue; Translations: [Other fatigue] Onset: 6 Resolved: 5 02-12-2023 Episodic Nonmalignant breast conditions (20 sources) Mammographic microcalcification of breast; Translations: [Mammographic microcalcification found on diagnostic imaging of breast] Onset: 4 06-17-2013 Episodic Other connective tissue disease (20 sources) Other symptoms and signs involving the musculoskeletal system; Translations: [Other musculoskeletal symptoms referable to limbs] Onset: 4 05-05-2023 Episodic Other connective tissue disease (13 sources) Muscle pain; Translations: [Myalgia and myositis, unspecified] Onset: 6 Resolved: 5 03-06-2015 Episodic Other infections; including parasitic (20 sources) Lyme disease; Translations: [Lyme disease, unspecified] Onset: 4 03-05-2023 Episodic Other infections; including parasitic (2 sources) Lyme disease, unspecified; Translations: [Lyme disease] Onset: 3 Episodic Other inflammatory condition of skin (2 sources) Other specified erythematous conditions; Translations: [Macular erythematous rash] Onset: 3 Episodic Other nervous system disorders (2 sources) Anesthesia of skin; Translations: [Left leg numbness] Onset: 3 Episodic Other non-traumatic joint disorders (20 sources) Hip pain; Translations: [Pain in left hip] Onset: 4 02-12-2023 Episodic Other non-traumatic joint disorders (2 sources) Pain in left hip; Translations: [Left hip pain] Onset: 3 Episodic Other non-traumatic joint disorders (2 sources) Effusion, left hip; Translations: [Hip swelling, left] Onset: 3 Episodic Other nutritional; endocrine; and metabolic disorders (13 sources) Weight loss; Translations: [Abnormal weight loss] Onset: 6 Resolved: 5 03-06-2015 Episodic Other screening for suspected conditions (not mental disorders or infectious disease) (20 sources) Patient encounter status; Translations: [Encounter for screening mammogram for malignant neoplasm of breast] Onset: 4 Resolved: 5 Episodic Other skin disorders (2 sources) Rash and other nonspecific skin eruption; Translations: [Rash] Onset: 3 Episodic Residual codes; unclassified (20 sources) Family history of breast cancer; Translations: [Family history of malignant neoplasm of breast] Onset: 9 01-19-2019 Episodic Residual codes; unclassified (20 sources) Postmenopausal state; Translations: [Asymptomatic menopausal state] Onset: 4 05-16-2023 Episodic Spondylosis; intervertebral disc disorders; other back problems (20 sources) Lumbosacral radiculopathy; Translations: [Radiculopathy, lumbosacral region] Onset: 4 05-05-2023 Episodic Thyroid disorders (13 sources) Atrophy of thyroid - acquired; Translations: [Atrophy of thyroid (acquired)] Onset: 5 Episodic Results Test Name Value Interpretation Reference Range Facility [facility] KHLOE FLORES ([id number]) 1970 F Date Time Provider Department 12/10/23 7:40 AM JAN GEORGE [facility] During your visit today, we recorded the following information about you: Temperature Pulse Respiration Blood pressure 98.3 degrees 76/minute 16/minute 136/80 Weight 64 kg Jan George DO 12/10/2023 8:20 AM Signed CC: Khloe Flores is a 53 year old female who presents to the office for follow up HPI: Hypothyroidism, taking levothyroxine 100 mcg a day, has some fatigue still and edema that is mild, left >right ankle. Better in the AM, worse at night. RA, has been taking Turmeric supplement 1400 mg at supper. Has been eating plant based diet. Sjogren's syndrome. 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 No date: 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 Comment: Sjogrens Syndrome No date: Unspecified hypothyroidism PAST SURGICAL HISTORY 86,84: ARTHROSCOPY KNEE DIAGNOSTIC W/WO SYNOVIAL BX SPX; Left Comment: Arthroscopy, knee 2014: BIOPSY OF BREAST Comment: microcalcifications No date: COLONOSCOPY No date: EGD 02/27/2005: LAPS SURG CHOLECYSTECTOMY W/CHOLANGIOGRAPHY 08/01/2015: NOVASURE Comment: HYSTEROSCOPY, ABLATION ENDOMETRIAL NOVASURE No date: PAST SURGICAL HISTORY OF Comment: MOLE REMOVAL ON BACK X 2- benign No date: PAST SURGICAL HISTORY OF Comment: wisdom teeth Current Outpatient Medications Medication Sig liothyronine (CYTOMEL) 5 mcg tablet Take 2 tablets by mouth daily in the late afternoon. montelukast (SINGULAIR) 10 mg tablet Take 1 tablet by mouth daily at bedtime. levothyroxine (LEVOXYL) 100 mcg tablet Take 1 tablet by mouth once daily. Take on empty stomach. For Thyroid. liothyronine (CYTOMEL) 5 mcg tablet Take 2 tablets by mouth daily in the late afternoon for 7 days. estradiol 10 mcg vaginal suppository maintenance pack (IMVEXXY) Use 1 Suppository vaginally two times a week. tofacitinib (XELJANZ XR) 11 mg tablet, extended release ondansetron orally disintegrating (ZOFRAN ODT) 4 mg disintegrating tablet Take 1 tablet by mouth every 8 hours as needed for nausea/vomiting. levothyroxine (LEVOXYL) 100 mcg tablet Take 1 tablet by mouth daily before breakfast. Take on empty stomach. For Thyroid. (Patient not taking: Reported on 05/16/2023) cyanocobalamin, vitamin B-12, (VITAMIN B12 ORAL) Take by mouth. traMADOL 50 mg ORAL tablet Take 1 tablet by mouth. @ bedtime methotrexate 2.5 mg ORAL tablet Take by mouth. Take 7 tablets a week calcium carbonate/vitamin d3(CALCIUM 600 + D(3) 600 MG (1,500)-200 UNIT TAB) Take one(1) tablet twice daily. FOLIC ACID 1 MG TAB Take one(1) tablet daily. esomeprazole (NEXIUM) 40 mg ORAL CpDR Take one(1) capsule daily. L-LYSINE 500 MG TAB 2 tabs daily THERAPEUTIC MULTIVITAMIN TAB Take one(1) tablet daily. TYLENOL ARTHRITIS 650 MG TAB two tabs twice daily PLAQUENIL 200 MG TAB Take one tablet daily with breakfast and 1/2 tablet in the evening with dinner No current facility-administered medications for this visit. ALLERGIES Allergen Reactions Erythromycin Vomiting Floxin [Ofloxacin] Intolerance Guaifenesin Swelling lips swell Mycinette [Cetylpyr* Intolerance Sulfa (Sulfonamide * Swelling face Vesicare [Solifenac* Swelling tingle tongue Z-Pack [Azithromyci* Diarrhea, Vomiting Social History Tobacco Use Smoking status: Never Smokeless tobacco: Never Vaping Use Vaping status: Never Used Substance Use Topics Alcohol use: No Drug use: No ROS See HPI PE: BP 136/80 Pulse 76 Temp (Src) 98.3 (Right Tympanic) Resp 16 Wt 141 lb (64.0kg) LMP 07/05/2015 Gen: AANDOX3, NAD, non-toxic appearing HEENT: PERRLA, EOMs intact b/l, nares without drainage, pharynx without erythema, exudate, lesions, or drainage. Uvula midline. Neck: No LAD, no thyromegaly, no meningismus. CV: RRR, no murmur Lungs: CTA b/l, no wheezing Skin: No rashes, lesions, or wounds on exposed skin. Trace edema left >right ankle, non pitting Normal pulses ASSESSMENT/PLAN: 1. Hypothyroidism due to acquired atrophy of thyroid - ICD9: 244.8, 246.8, ICD10: E03.4 (primary diagnosis) - Instructed patient on importance of taking on an empty stomach either first thing in th (more content not included)... Normal [facility] T3 SerPl-mCncon 12-08-2023 T3 [Mass/Vol] 116 ng/dL Normal 79-165 [facility] Comment on above: Order Comment: Speci men Type: BLOOD SPECIMEN Ordering Facility: [facility] Address: [address] [place] [address] Performed By: #### 3 024-7, 3053-6, 3016-3 #### [facility] CLIA [id number] [address] [place] [address] [place] [address] [place] T4 Free SerPl-mCncon 024 Free T4 [Mass/Vol] 1.1 ng/dL Normal 0.9-1.7 [facility] Comment on above: Order Comment: Speci men Type: BLOOD SPECIMEN Ordering Facility: [facility] Address: [address] [place] [address] Performed By: #### 3 024-7, 3053-6, 3016-3 #### [facility] CLIA [id number] [address] [place] [address] [place] TSH SerPl-aCncon 12-08-2023 TSH Qn 0.334 m[IU]/L Normal 0.270-4.200 [facility] Comment on above: Order Comment: Eleazar bedolla Type: BLOOD SPECIMEN Ordering Facility: [facility] Address: [address] [place] [address] Performed By: #### 3 024-7, 3053-6, 3016-3 #### [facility] CLIA [id number] [address] [place] [address] OF [facility] CNPNon 09-17-2023 [facility]) -------- KHLOE FLORES ([id number]) 1970 F Date Time Provider Department 09/17/23 [facility] During your visit today, we recorded the following information about you: aJn George DO 09/17/2023 10:15 PM Signed Please inform patient that overall labs are stable DO Soham Aguilar Beth, LPN 09/18/2023 9:50 AM Signed Phoned patient and went over results from Dr George with understanding. Patient questioning her T3 results stayed the same at 3.4 even after increasing her Cytomel to 2 tablets in the afternoon. Asking if PCP wants her dose increased? Jan George DO 09/23/2023 7:04 AM Signed Please keep dosing the same DO Chalo Aguilar M Robin RN 09/23/2023 8:53 AM Signed Phoned patient and given provider's message below with verbalized understanding. Patient agreeable. Allergies As of Date: 09/17/2023 Noted Allergy Reaction ERYTHROMYCIN 02/12/2023 11 - Vomiting FLOXIN (OFLOXACIN) 01/19/2005 5 - Intolerance GUAIFENESIN 01/19/2005 7 - Swelling Comments: lips swell MYCINETTE (CETYLPYRIDINIUM-BENZOC* 01/19/2005 5 - Intolerance SULFA (SULFONAMIDE ANTIBIOTICS) 01/19/2005 7 - Swelling Comments: face VESICARE (SOLIFENACIN SUCCINATE) 05/15/2007 7 - Swelling Comments: tingle tongue Z-PACK (AZITHROMYCIN) 03/16/2007 6 - Diarrhea 11 - Vomiting Date Reviewed: 07/24/2023 Reviewed by: Sendy Cantrell APRN.HYDROGENATION STILL OPERATOR - Fully Assessed Reason for Visit: Results [95] Prescriptions as of 09/23/2023 - liothyronine (CYTOMEL) 5 mcg tablet Take 2 tablets by mouth daily in the late afternoon. - liothyronine (CYTOMEL) 5 mcg tablet Take 2 tablets by mouth daily in the late afternoon for 7 days. - estradiol 10 mcg vaginal suppository maintenance pack (IMVEXXY) Use 1 Suppository vaginally two times a week. - levothyroxine (LEVOXYL) 100 mcg tablet Take 1 tablet by mouth once daily. Take on empty stomach. For Thyroid. - tofacitinib (XELJANZ XR) 11 mg tablet, extended release - montelukast (SINGULAIR) 10 mg tablet Take 1 tablet by mouth daily at bedtime. - ondansetron orally disintegrating (ZOFRAN ODT) 4 mg disintegrating tablet Take 1 tablet by mouth every 8 hours as needed for nausea/vomiting. - levothyroxine (LEVOXYL) 100 mcg tablet Take 1 tablet by mouth daily before breakfast. Take on empty stomach. For Thyroid. - cyanocobalamin, vitamin B-12, (VITAMIN B12 ORAL) Take by mouth. - traMADOL 50 mg ORAL tablet Take 1 tablet by mouth. @ bedtime - methotrexate 2.5 mg ORAL tablet Take by mouth. Take 7 tablets a week - calcium carbonate/vitamin d3(CALCIUM 600 + D(3) 600 MG (1,500)-200 UNIT TAB) Take one(1) tablet twice daily. - FOLIC ACID 1 MG TAB Take one(1) tablet daily. - esomeprazole (NEXIUM) 40 mg ORAL CpDR Take one(1) capsule daily. - L-LYSINE 500 MG TAB 2 tabs daily - THERAPEUTIC MULTIVITAMIN TAB Take one(1) tablet daily. - TYLENOL ARTHRITIS 650 MG TAB two tabs twice daily - PLAQUENIL 200 MG TAB Take one tablet daily with breakfast and 1/2 tablet in the evening with dinner Problem List As Of Date 09/17/2023 Noted Resolved Chronic cholecystitis [K81.1] 02/14/2005 03/06/2015 HYPOTHYROIDISM NOS [E03.9] 07/12/2005 03/23/2015 Other malaise and fatigue [R53.81, R53.83] 07/12/2005 03/06/2015 Myalgia and myositis, unspecified [ILP6435] 07/12/2005 03/06/2015 Loss of weight [R63.4] 08/02/2005 03/06/2015 Sjogrens Syndrome [M35.00] 01/21/2007 Abnormal mammogram, unspecified [R92.8] 05/27/2013 03/06/2015 Abnormal mammogram with microcalcification [R92*06/17/2013 Hypothyroidism [E03.9] 03/23/2015 Rheumatoid arthritis involving multiple sites (*05/23/2015 GERD (gastroesophageal reflux disease) [K21.9] 07/26/2015 Family history of breast cancer [Z80.3] 01/19/2019 Rheumatoid arthritis of multiple sites with neg*06/10/2022 Lumbosacral radiculopathy at L5 [M54.17] 05/05/2023 Lumbosacral radiculopathy at S1 [M54.17] 05/05/2023 Weakness of left lower extremity [R29.898] 05/05/2023 Postmenopausal [Z78.0] 05/16/2023 Vaginal atrophy [N95.2] 05/16/2023 Encounter for screening mammogram for breast ca*05/16/2023 Well adult exam [Z00.00] 06/09/2023 Vitamin D deficiency [E55.9] 06/09/2023 Lyme disease [A69.20] 06/09/2023 Left hip pain [M25.552] 06/09/2023 Dyslipidemia [E78.5] 06/09/2023 Encounter Status:Closed by Rose ISABEL on 09/23/23 Normal [facility] CBC W Auto Differential pane l (Bld)on 09-09-2023 Basophils (Bld) [#/Vol] 10*3/uL Normal <0.11 [facility] Comment on above: Order Comment: Speci men Type: BLOOD SPECIMENOrdering Facility: [facility] Address: [address] [place] [address] Performed By: #### 5 7021-8 ####[facility] [id number] [place] [address] [place] Basophils/100 WBC (Bld) 0.4 % Normal [facility] Comment on above: Order Comment: Speci men Type: BLOOD SPECIMENOrdering Facility: [facility] Address: [address] [place] [address] Performed By: #### 5 7021-8 ####[facility] [id number] [place] [address] [place] Differential cell count method Nom (Bld) Auto Normal [facility] Comment on above: Order Comment: Speci men Type: BLOOD SPECIMENOrdering Facility: [facility] Address: [address] [place] [address] Performed By: #### 5 7021-8 ####[facility] [id number] [place] [address] [place] Eosinophils (Bld) [#/Vol] 0.03 10*3/uL Normal <0.46 [facility] Comment on above: Order Comment: Speci men Type: BLOOD SPECIMENOrdering Facility: [facility] Address: [address] [place] [address] Performed By: #### 5 7021-8 ####[facility] MILLWNCLIA [id number] [place] [address] [place] Eosinophils/100 WBC (Bld) 0.6 % Normal [facility] Comment on above: Order Comment: Speci men Type: BLOOD SPECIMENOrdering Facility: [facility] Address: [address] [place] [address] Performed By: #### 5 7021-8 ####[facility]ITALWBLESSINGLIA [id number] [place] [address] [place] Erythrocyte distribution width (RBC) [Ratio] 11.9 % Normal 11.5-15.0 [facility] Comment on above: Order Comment: Speci men Type: BLOOD SPECIMENOrdering Facility: [facility] Address: [address] [place] [address] Performed By: #### 5 7021-8 ####[facility] [id number] [place] [address] [place] Hematocrit (Bld) [Volume fraction] 45.3 % Normal 36.0-46.0 [facility] Comment on above: Order Comment: Speci men Type: BLOOD SPECIMENOrdering Facility: [facility] Address: [address] [place] [address] Performed By: #### 5 7021-8 ####[facility] MILLWNCLIA [id number] [place] [address] [place] Hemoglobin (Bld) [Mass/Vol] 15.5 g/dL Normal 11.5-15.5 [facility] Comment on above: Order Comment: Speci men Type: BLOOD SPECIMENOrdering Facility: [facility] Address: [address] [place] [address] Performed By: #### 5 7021-8 ####[facility]ITAL[facility]CL[facility] [id number] [place] [address] [place] Immature granulocytes (Bld) [#/Vol] 10*3/uL Normal <0.10 [facility] Comment on above: Order Comment: Speci men Type: BLOOD SPECIMENOrdering Facility: [facility] Address: [address] [place] [address] Performed By: #### 5 7021-8 ####[facility] SYSTEM[facility] [id number] [place] [address] [place] Immature granulocytes/100 WBC (Bld) 0.4 % Normal [facility] Comment on above: Order Comment: Speci men Type: BLOOD SPECIMENOrdering Facility: [facility] Address: [address] [place] [address] Performed By: #### 5 7021-8 ####[facility] ERNCLI [id number] [place] [address] [place] Lymphocytes (Bld) [#/Vol] 1.55 10*3/uL Normal 1.00-4.00 [facility] Comment on above: Order Comment: Speci men Type: BLOOD SPECIMENOrdering Facility: [facility] Address: [address] [place] [address] Performed By: #### 5 7021-8 ####[facility] SYSTEML[facility] [id number] [place] [address] [place] Lymphocytes/100 WBC (Bld) 28.5 % Normal [facility] Comment on above: Order Comment: Speci men Type: BLOOD SPECIMENOrdering Facility: [facility] Address: [address] [place] [address] Performed By: #### 5 7021-8 ####[facility] ERNCLI [id number] [place] [address] [place] MCH (RBC) [Entitic mass] 34.7 pg High 26.0-34.0 [facility] Comment on above: Order Comment: Speci men Type: BLOOD SPECIMENOrdering Facility: [facility] Address: [address] [place] [address] Performed By: #### 5 7021-8 ####[facility] DONNA [id number] [place] [address] [place] MCHC (RBC) [Mass/Vol] 34.2 g/dL Normal 30.5-36.0 [facility] Comment on above: Order Comment: Speci men Type: BLOOD SPECIMENOrdering Facility: [facility] Address: [address] [place] [address] Performed By: #### 5 7021-8 ####[facility] ERRAFI [id number] [place] [address] [place] MCV (RBC) [Entitic vol] 101.3 fL High 80.0-100.0 [facility] Comment on above: Order Comment: Speci men Type: BLOOD SPECIMENOrdering Facility: [facility] Address: [address] [place] [address] Performed By: #### 5 7021-8 ####[facility] ERRAFI [id number] [place] [address] [place] Monocytes (Bld) [#/Vol] 0.45 10*3/uL Normal <0.87 [facility] Comment on above: Order Comment: Speci men Type: BLOOD SPECIMENOrdering Facility: [facility] Address: [address] [place] [address] Performed By: #### 5 7021-8 ####[facility] ERNCLIA [id number] [place] [address] [place] Monocytes/100 WBC (Bld) 8.3 % Normal [facility] Comment on above: Order Comment: Speci men Type: BLOOD SPECIMENOrdering Facility: [facility] Address: [address] [place] [address] Performed By: #### 5 7021-8 ####[facility] MILLWNCLIA [id number] [place] [address] [place] Neutrophils (Bld) [#/Vol] 3.37 10*3/uL Normal 1.45-7.50 [facility] Comment on above: Order Comment: Speci men Type: BLOOD SPECIMENOrdering Facility: [facility] Address: [address] [place] [address] Performed By: #### 5 7021-8 ####[facility] SYSTEM[facility] [id number] [place] [address] [place] Neutrophils/100 WBC (Bld) 61.8 % Normal [facility] Comment on above: Order Comment: Speci men Type: BLOOD SPECIMENOrdering Facility: [facility] Address: [address] [place] [address] Performed By: #### 5 7021-8 ####[facility] SYSTEM[facility] [id number] [place] [address] [place] Nucleated RBC (Bld) [#/Vol] 10*3/uL Normal <0.01 [facility] Comment on above: Order Comment: Speci men Type: BLOOD SPECIMENOrdering Facility: [facility] Address: [address] [place] [address] Performed By: #### 5 7021-8 ####[facility] SYSTEM[facility] [id number] [place] [address] [place] Nucleated RBC/100 WBC (Bld) [Ratio] 0.0 /100 WBC Normal [facility] Comment on above: Order Comment: Speci men Type: BLOOD SPECIMENOrdering Facility: [facility] Address: [address] [place] [address] Performed By: #### 5 7021-8 ####[facility] ERNCLIA [id number] [place] [address] [place] Platelet mean volume (Bld) [Entitic vol] 8.9 fL Low 9.0-12.7 [facility] Comment on above: Order Comment: Speci men Type: BLOOD SPECIMENOrdering Facility: [facility] Address: [address] [place] [address] Performed By: #### 5 7021-8 ####[facility] ERNCSAMEERAA [id number] [place] [address] [place] Platelets (Bld) [#/Vol] 229 10*3/uL Normal 150-400 [facility] Comment on above: Order Comment: Speci men Type: BLOOD SPECIMENOrdering Facility: [facility] Address: [address] [place] [address] Performed By: #### 5 7021-8 ####[facility] ERNCLIA [id number] [place] [address] [place] RBC (Bld) [#/Vol] 4.47 10*6/uL Normal 3.90-5.20 [facility] Comment on above: Order Comment: Speci men Type: BLOOD SPECIMENOrdering Facility: [facility] Address: [address] [place] [address] Performed By: #### 5 7021-8 ####[facility] ERNCLIA [id number] [place] [address] [place] WBC (Bld) [#/Vol] 5.44 10*3/uL Normal 3.70-11.00 [facility] Comment on above: Order Comment: Speci men Type: BLOOD SPECIMENOrdering Facility: [facility] Address: [address] [place] [address] Performed By: #### 5 7021-8 ####[facility] ERNCLIA [id number] [place] [address] [place] Lipid 1996 panelon 06-11-202 4 Cholesterol [Mass/Vol] 180 mg/dL Normal <200 [facility] Comment on above: Order Comment: Speci men Type: BLOOD SPECIMEN Ordering Facility: [facility] Address: [address] [place] [address] Result Comment: <200 mg/dL, Desirable 200-239 mg/dL, Borderline high >239 mg/dL, High Performed By: #### 2 132-9, 3024-7, 3051-0, 3016-3 #### [facility] CLIA [id number] [address] [place] [address] [place] Cholesterol in HDL [Mass/Vol] 91 mg/dL Normal >39 [facility] Comment on above: Order Comment: Larryi men Type: BLOOD SPECIMEN Ordering Facility: [facility] Address: [address] [place] [address] Result Comment: 40-5 9 mg/dL, Acceptable >59 mg/dL, High: Negative risk factor for coronary heart disease <40 mg/dL, Low: Positive risk factor for coronary heart disease Performed By: #### 2 132-9, 3024-7, 3051-0, 3016-3 #### [facility] CLIA [id number] [address] [place] [address] [place] Cholesterol in LDL [Mass/Vol] 76 mg/dL Normal <100 [facility] Comment on above: Order Comment: Larryi men Type: BLOOD SPECIMEN Ordering Facility: [facility] Address: [address] [place] [address] Result Comment: <100 mg/dL, Optimal 100-129 mg/dL, Near optimal/above optimal 130-159 mg/dL, Borderline high 160-189 mg/dL, High >189 mg/dL, Very high Secondary prevention optimal LDL Cholesterol levels are recommended to be < 70 mg/dL Performed By: #### 2 132-9, 3024-7, 3051-0, 3016-3 #### [facility] CLIA [id number] [address] [place], [place] [id number] [place] Cholesterol in LDL/Cholesterol in HDL [Mass ratio] 0.84 {ratio} Normal <2.54 [facility] Comment on above: Order Comment: Eleazar bedolla Type: BLOOD SPECIMEN Ordering Facility: [facility] Address: [address] [place] [address] Result Comment: Alphonso burleson: 1. National Cholesterol Education Program ATP III Guideline At-A-Glance Quick Desk Reference: National Heart, Lung, and Blood [place]. National Institutes of Health. 2001: NIH Publication No. 01-3305. 2. An International Atherosclerosis Society position paper: global recommendations for the management of dyslipidemia: executive summary, Atherosclerosis. 2014: 232(2):410-413. Performed By: #### 2 132-9, 3024-7, 3051-0, 3016-3 #### [facility] CLIA [id number] [address] [place] [address] [place] Cholesterol in VLDL [Mass/Vol] 13 mg/dL Normal <30 [facility] Comment on above: Order Comment: Eleazar bedolla Type: BLOOD SPECIMEN Ordering Facility: [facility] Address: [address] [place] [address] Performed By: #### 2 132-9, 3024-7, 3051-0, 3016-3 #### [facility] CLIA [id number] [address] [place] [address] [place] Cholesterol non HDL [Mass/Vol] 89 mg/dL Normal <130 [facility] Comment on above: Order Comment: Eleazar bedolla Type: BLOOD SPECIMEN Ordering Facility: [facility] Address: [address] [place] [address] Result Comment: <130 mg/dL, Optimal 130-159 mg/dL, Near optimal/above optimal 160-189 mg/dL, Borderline high 190-219 mg/dL, High >219 mg/dL, Very high Secondary prevention optimal non HDL Cholesterol levels are recommended to be <100 mg/dL Performed By: #### 2 132-9, 3024-7, 3051-0, 3016-3 #### [facility] CLIA [id number] [address] [id number] [address] [place] Cholesterol.total/ Cholesterol in HDL [Mass ratio] 1.98 {ratio} Normal <5.10 [facility] Comment on above: Order Comment: Speci men Type: BLOOD SPECIMEN Ordering Facility: [facility] Address: [address] [place] [address] Performed By: #### 2 132-9, 3024-7, 3051-0, 3016-3 #### [facility] CLIA [id number] [address] [place] [address] [place] FASTING TIME 12 hrs Normal [facility] [facility] Comment on above: Order Comment: Speci men Type: BLOOD SPECIMEN Ordering Facility: [facility] Address: [address] [place] [address] Performed By: #### 2 132-9, 3024-7, 3051-0, 3016-3 #### [facility] CLIA [id number] [address] [place] [address] [place] Triglyceride [Mass/Vol] 67 mg/dL Normal <150 [facility] Comment on above: Order Comment: Speci men Type: BLOOD SPECIMEN Ordering Facility: [facility] Address: [address] [place] [address] Result Comment: <150 mg/dL, Normal 150-199 mg/dL, Borderline high 200-499 mg/dL, High >499 mg/dL, Very high Performed By: #### 2 132-9, 3024-7, 3051-0, 3016-3 #### [facility] CLIA [id number] [address] [place] [address] [place] T3Free SerPl-mCncon 09-09-19 24 Free T3 [Mass/Vol] 3.4 pg/mL Normal 2.3-4.1 [facility] Comment on above: Order Comment: Speci men Type: BLOOD SPECIMEN Ordering Facility: [facility] Address: [address] [place] [address] Performed By: #### 2 132-9, 3024-7, 3051-0, 3016-3 #### [facility] CLIA [id number] [address] [place] [address] [place] T4 Free SerPl-mCncon 024 Free T4 [Mass/Vol] 1.5 ng/dL Normal 0.9-1.7 [facility] Comment on above: Order Comment: Speci men Type: BLOOD SPECIMEN Ordering Facility: [facility] Address: [address] [place] [address] Performed By: #### 2 132-9, 3024-7, 3051-0, 3016-3 #### [facility] CLIA [id number] [address] [place] [address] [place] TSH SerPl-aCncon 09-09-2023 TSH Qn 0.335 m[IU]/L Normal 0.270-4.200 [facility] Comment on above: Order Comment: Speci men Type: BLOOD SPECIMEN Ordering Facility: [facility] Address: [address] [place] [address] Performed By: #### 2 132-9, 3024-7, 305-0, 3016-3 #### [facility] CLIA [id number] [address] [place] [address] [place] CNTHERAPYon 08-19-2023 CNTHERAPY OT/PT/Speech Visit (PTWS) -------- KHLOE FLORES ([id number]) 1970 F Date Time Provider Department 08/19/23 3:45 PM ANDRAE BALL PTPORSHA Date Time Provider Department Center 08/19/2023 3:45 PM [id number], COREY PTPORSHA [place] Reason for Visit: PT Discharge [752] Primary Visit Diagnosis:Weakness of left lower extremity [R29.898] Other Visit Diagnoses:Lumbosacral radiculopathy at L5 [M54.17] Lumbosacral radiculopathy at S1 [M54.17] Allergies As of Date: 08/19/2023 Noted Allergy Reaction ERYTHROMYCIN 02/12/2023 11 - Vomiting FLOXIN (OFLOXACIN) 01/19/2005 5 - Intolerance GUAIFENESIN 01/19/2005 7 - Swelling Comments: lips swell MYCINETTE (CETYLPYRIDINIUM-BENZOC* 01/19/2005 5 - Intolerance SULFA (SULFONAMIDE ANTIBIOTICS) 01/19/2005 7 - Swelling Comments: face VESICARE (SOLIFENACIN SUCCINATE) 05/15/2007 7 - Swelling Comments: tingle tongue Z-PACK (AZITHROMYCIN) 03/16/2007 6 - Diarrhea 11 - Vomiting Date Reviewed: 07/24/2023 Reviewed by: Sendy Cantrell APRN.HYDROGENATION STILL OPERATOR - Fully Assessed Prescriptions as of 08/19/2023 - liothyronine (CYTOMEL) 5 mcg tablet Take 2 tablets by mouth daily in the late afternoon. - liothyronine (CYTOMEL) 5 mcg tablet Take 2 tablets by mouth daily in the late afternoon for 7 days. - estradiol 10 mcg vaginal suppository maintenance pack (IMVEXXY) Use 1 Suppository vaginally two times a week. - levothyroxine (LEVOXYL) 100 mcg tablet Take 1 tablet by mouth once daily. Take on empty stomach. For Thyroid. - tofacitinib (XELJANZ XR) 11 mg tablet, extended release - montelukast (SINGULAIR) 10 mg tablet Take 1 tablet by mouth daily at bedtime. - ondansetron orally disintegrating (ZOFRAN ODT) 4 mg disintegrating tablet Take 1 tablet by mouth every 8 hours as needed for nausea/vomiting. - levothyroxine (LEVOXYL) 100 mcg tablet Take 1 tablet by mouth daily before breakfast. Take on empty stomach. For Thyroid. - cyanocobalamin, vitamin B-12, (VITAMIN B12 ORAL) Take by mouth. - traMADOL 50 mg ORAL tablet Take 1 tablet by mouth. @ bedtime - methotrexate 2.5 mg ORAL tablet Take by mouth. Take 7 tablets a week - calcium carbonate/vitamin d3(CALCIUM 600 + D(3) 600 MG (1,500)-200 UNIT TAB) Take one(1) tablet twice daily. - FOLIC ACID 1 MG TAB Take one(1) tablet daily. - esomeprazole (NEXIUM) 40 mg ORAL CpDR Take one(1) capsule daily. - L-LYSINE 500 MG TAB 2 tabs daily - THERAPEUTIC MULTIVITAMIN TAB Take one(1) tablet daily. - TYLENOL ARTHRITIS 650 MG TAB two tabs twice daily - PLAQUENIL 200 MG TAB Take one tablet daily with breakfast and 1/2 tablet in the evening with dinner -------- Hand Scraper: Therapy (PT/OT/Speech/Resp) ID: [id number] 08/19/2023 4:07 PM Author: ANDRAE BALL Signed by ANDRAE BALL PT on 08/19/2023 at 4:07 PM Document text: Program_ID:[id number] Access Code: [email or web address] URL: [email or web address] Date: 08-19-2023 Prepared By: Dayday Mortensen Program Notes Exercises - Sidelying Hip Abduction - 1 x daily - 7 x weekly - 3 sets - 10 reps - Sidelying Hip Circles - 1 x daily - 7 x weekly - 3 sets - 10 reps - Figure 4 Bridge - 1 x daily - 7 x weekly - 3 sets - 10 reps - Single Leg Heel Raise with Counter Support - 1 x daily - 7 x weekly - 3 sets - 10 reps - Single Leg Stance - 1 x daily - 7 x weekly - 3 sets - reps - Side Stepping with Resistance at Feet - 1 x daily - 7 x weekly - 3 sets - reps Normal [facility] THERAPY NTon 08-19-2023 THERAPY NT HNO ID: [id number] Author: ANDRAE BALL PT Service: ? Author Type: Physical Therapist Type: Therapy (PT/OT/Speech/Resp) Filed: 08/19/2023 16:07 Note Text: Program_ID:[id number] Access Code: [email or web address] URL: [email or web address] Date: 08-19-2023 Prepared By: Dayday Mortensen Program Notes Exercises - Sidelying Hip Abduction - 1 x daily - 7 x weekly - 3 sets - 10 reps - Sidelying Hip Circles - 1 x daily - 7 x weekly - 3 sets - 10 reps - Figure 4 Bridge - 1 x daily - 7 x weekly - 3 sets - 10 reps - Single Leg Heel Raise with Counter Support - 1 x daily - 7 x weekly - 3 sets - 10 reps - Single Leg Stance - 1 x daily - 7 x weekly - 3 sets - reps - Side Stepping with Resistance at Feet - 1 x daily - 7 x weekly - 3 sets - reps Normal [facility] CNTHERAPYon 08-04-2023 CNTHERAPY OT/PT/Speech Visit (PTWS) -------- KHLOE FLORES ([id number]) 1970 F Date Time Provider Department 08/04/23 5:15 PM VIRIDIANA MARTÍNEZ PTWS Date Time Provider Department Center 08/04/2023 5:15 PM [id number], MARIAH PTPORSHA [place] Reason for Visit: Physical Therapy [503] Primary Visit Diagnosis:Weakness of left lower extremity [R29.898] Other Visit Diagnoses:Lumbosacral radiculopathy at L5 [M54.17] Lumbosacral radiculopathy at S1 [M54.17] Allergies As of Date: 08/04/2023 Noted Allergy Reaction ERYTHROMYCIN 02/12/2023 11 - Vomiting FLOXIN (OFLOXACIN) 01/19/2005 5 - Intolerance GUAIFENESIN 01/19/2005 7 - Swelling Comments: lips swell MYCINETTE (CETYLPYRIDINIUM-BENZOC* 01/19/2005 5 - Intolerance SULFA (SULFONAMIDE ANTIBIOTICS) 01/19/2005 7 - Swelling Comments: face VESICARE (SOLIFENACIN SUCCINATE) 05/15/2007 7 - Swelling Comments: tingle tongue Z-PACK (AZITHROMYCIN) 03/16/2007 6 - Diarrhea 11 - Vomiting Date Reviewed: 07/24/2023 Reviewed by: Sendy Cantrell APRN.HYDROGENATION STILL OPERATOR - Fully Assessed Prescriptions as of 08/05/2023 - liothyronine (CYTOMEL) 5 mcg tablet Take 2 tablets by mouth daily in the late afternoon. - liothyronine (CYTOMEL) 5 mcg tablet Take 2 tablets by mouth daily in the late afternoon for 7 days. - estradiol 10 mcg vaginal suppository maintenance pack (IMVEXXY) Use 1 Suppository vaginally two times a week. - levothyroxine (LEVOXYL) 100 mcg tablet Take 1 tablet by mouth once daily. Take on empty stomach. For Thyroid. - tofacitinib (XELJANZ XR) 11 mg tablet, extended release - montelukast (SINGULAIR) 10 mg tablet Take 1 tablet by mouth daily at bedtime. - ondansetron orally disintegrating (ZOFRAN ODT) 4 mg disintegrating tablet Take 1 tablet by mouth every 8 hours as needed for nausea/vomiting. - levothyroxine (LEVOXYL) 100 mcg tablet Take 1 tablet by mouth daily before breakfast. Take on empty stomach. For Thyroid. - cyanocobalamin, vitamin B-12, (VITAMIN B12 ORAL) Take by mouth. - traMADOL 50 mg ORAL tablet Take 1 tablet by mouth. @ bedtime - methotrexate 2.5 mg ORAL tablet Take by mouth. Take 7 tablets a week - calcium carbonate/vitamin d3(CALCIUM 600 + D(3) 600 MG (1,500)-200 UNIT TAB) Take one(1) tablet twice daily. - FOLIC ACID 1 MG TAB Take one(1) tablet daily. - esomeprazole (NEXIUM) 40 mg ORAL CpDR Take one(1) capsule daily. - L-LYSINE 500 MG TAB 2 tabs daily - THERAPEUTIC MULTIVITAMIN TAB Take one(1) tablet daily. - TYLENOL ARTHRITIS 650 MG TAB two tabs twice daily - PLAQUENIL 200 MG TAB Take one tablet daily with breakfast and 1/2 tablet in the evening with dinner -------- Hand Scraper: Addendum Therapy (PT/OT/Speech/Resp) ID: [id number] 08/04/2023 5:54 PM Author: VIRIDIANA MARTÍNEZ Signed by VIRIDIANA MARTÍNEZ ACCOUNTING CLERKS SUPERVISOR on 08/04/2023 at 5:54 PM * * * This document replaces document [id number] * * * Document text: Program_ID:[id number] Access Code: [email or web address] URL: [email or web address] Date: 08-04-2023 Prepared By: Dayday Mortensen Program Notes Exercises - Supine Piriformis Stretch with Leg Straight - 1 x daily - 7 x weekly - 2 sets - 3 reps - Seated Ankle Plantarflexion with Resistance - 1 x daily - 7 x weekly - 1-2 sets - 10 reps - Ankle Inversion with Resistance - 1 x daily - 7 x weekly - 1-2 sets - 10 reps - Ankle Eversion with Resistance - 1 x daily - 7 x weekly - 1-2 sets - 10 reps - Long Sitting Plantar Fascia Stretch with Towel - 1 x daily - 7 x weekly - 1-2 sets - 3 reps - Supine Posterior Pelvic Tilt - 1 x daily - 7 x weekly - 2 sets - 10 reps - Supine Bridge - 1 x daily - 7 x weekly - 2 sets - 5 reps - Supine Gluteus Stretch - 1 x daily - 7 x weekly - 1 sets - 3 reps - Heel Raises with Counter Support - 1 x daily - 7 x weekly - 2 sets - 10 reps - Seated Transversus Abdominis Bracing - 1 x daily - 7 x weekly - 2 sets - 10 reps - Sidelying Hip Abduction - 1 x daily - 7 x weekly - 1 sets - 10 reps - Sidelying Bent Knee Hip Flexion - 1 x daily - 7 x weekly - 1 sets - 10 reps - Sidelying Hip Circles - 1 x daily - 7 x weekly - 1 sets - 10 reps - Figure 4 Bridge - 1 x daily - 7 x weekly - 2 sets - 10 reps Normal [facility] THERAPY NTon 08-04-2023 THERAPY NT HNO ID: [id number] Author: VIRIDIANA MARTÍNEZ PTA Service: ? Author Type: Retail [employer] Receptionist Type: Therapy (PT/OT/Speech/Resp) Filed: 08/04/2023 17:29 Note Text: Program_ID:[id number] Access Code: [email or web address] URL: [email or web address] Date: 08-04-2023 Prepared By: Dayday Mortensen Program Notes Exercises - Supine Piriformis Stretch with Leg Straight - 1 x daily - 7 x weekly - 2 sets - 3 reps - Seated Ankle Plantarflexion with Resistance - 1 x daily - 7 x weekly - 1-2 sets - 10 reps - Ankle Inversion with Resistance - 1 x daily - 7 x weekly - 1-2 sets - 10 reps - Ankle Eversion with Resistance - 1 x daily - 7 x weekly - 1-2 sets - 10 reps - Long Sitting Plantar Fascia Stretch with Towel - 1 x daily - 7 x weekly - 1-2 sets - 3 reps - Supine Posterior Pelvic Tilt - 1 x daily - 7 x weekly - 2 sets - 10 reps - Supine Bridge - 1 x daily - 7 x weekly - 2 sets - 5 reps - Supine Gluteus Stretch - 1 x daily - 7 x weekly - 1 sets - 3 reps - Heel Raises with Counter Support - 1 x daily - 7 x weekly - 2 sets - 10 reps - Seated Transversus Abdominis Bracing - 1 x daily - 7 x weekly - 2 sets - 10 reps - Sidelying Hip Abduction - 1 x daily - 7 x weekly - 1 sets - 10 reps - Sidelying Bent Knee Hip Flexion - 1 x daily - 7 x weekly - 1 sets - 10 reps - Sidelying Hip Circles - 1 x daily - 7 x weekly - 1 sets - 10 reps Normal [facility] CNPNon 07-25-2023 CNPN Telephone (IFDSHF) -------- KHLOE FLORES ([id number]) 1970 F Date Time Provider Department 07/25/23 RADHA FLETCHER IFDSHF During your visit today, we recorded the following information about you: Radha Fletcher MD 07/25/2023 5:47 PM Signed Called patient back. She updated about a recent tick bite. Agree with 10 days of doxycycline as prescribed assuming ongoing clinical improvement. She is feeling better today. Radha Fletcher MD, PhD Staff, Infectious Disease [facility] Office [phone] Allergies As of Date: 07/25/2023 Noted Allergy Reaction ERYTHROMYCIN 02/12/2023 11 - Vomiting FLOXIN (OFLOXACIN) 01/19/2005 5 - Intolerance GUAIFENESIN 01/19/2005 7 - Swelling Comments: lips swell MYCINETTE (CETYLPYRIDINIUM-BENZOC* 01/19/2005 5 - Intolerance SULFA (SULFONAMIDE ANTIBIOTICS) 01/19/2005 7 - Swelling Comments: face VESICARE (SOLIFENACIN SUCCINATE) 05/15/2007 7 - Swelling Comments: tingle tongue Z-PACK (AZITHROMYCIN) 03/16/2007 6 - Diarrhea 11 - Vomiting Date Reviewed: 07/24/2023 Reviewed by: Sendy Cantrell APRN.HYDROGENATION STILL OPERATOR - Fully Assessed Prescriptions as of 07/25/2023 - doxycycline (VIBRA-TABS) 100 mg tablet Take 1 tablet by mouth two times a day for 10 days. - liothyronine (CYTOMEL) 5 mcg tablet Take 2 tablets by mouth daily in the late afternoon. - liothyronine (CYTOMEL) 5 mcg tablet Take 2 tablets by mouth daily in the late afternoon for 7 days. - estradiol 10 mcg vaginal suppository maintenance pack (IMVEXXY) Use 1 Suppository vaginally two times a week. - levothyroxine (LEVOXYL) 100 mcg tablet Take 1 tablet by mouth once daily. Take on empty stomach. For Thyroid. - tofacitinib (XELJANZ XR) 11 mg tablet, extended release - montelukast (SINGULAIR) 10 mg tablet Take 1 tablet by mouth daily at bedtime. - ondansetron orally disintegrating (ZOFRAN ODT) 4 mg disintegrating tablet Take 1 tablet by mouth every 8 hours as needed for nausea/vomiting. - levothyroxine (LEVOXYL) 100 mcg tablet Take 1 tablet by mouth daily before breakfast. Take on empty stomach. For Thyroid. - cyanocobalamin, vitamin B-12, (VITAMIN B12 ORAL) Take by mouth. - traMADOL 50 mg ORAL tablet Take 1 tablet by mouth. @ bedtime - methotrexate 2.5 mg ORAL tablet Take by mouth. Take 7 tablets a week - calcium carbonate/vitamin d3(CALCIUM 600 + D(3) 600 MG (1,500)-200 UNIT TAB) Take one(1) tablet twice daily. - FOLIC ACID 1 MG TAB Take one(1) tablet daily. - esomeprazole (NEXIUM) 40 mg ORAL CpDR Take one(1) capsule daily. - L-LYSINE 500 MG TAB 2 tabs daily - THERAPEUTIC MULTIVITAMIN TAB Take one(1) tablet daily. - TYLENOL ARTHRITIS 650 MG TAB two tabs twice daily - PLAQUENIL 200 MG TAB Take one tablet daily with breakfast and 1/2 tablet in the evening with dinner Problem List As Of Date 07/25/2023 Noted Resolved Chronic cholecystitis [K81.1] 02/14/2005 03/06/2015 HYPOTHYROIDISM NOS [E03.9] 07/12/2005 03/23/2015 Other malaise and fatigue [R53.81, R53.83] 07/12/2005 03/06/2015 Myalgia and myositis, unspecified [TET4635] 07/12/2005 03/06/2015 Loss of weight [R63.4] 08/02/2005 03/06/2015 Sjogrens Syndrome [M35.00] 01/21/2007 Abnormal mammogram, unspecified [R92.8] 05/27/2013 03/06/2015 Abnormal mammogram with microcalcification [R92*06/17/2013 Hypothyroidism [E03.9] 03/23/2015 Rheumatoid arthritis involving multiple sites (*05/23/2015 GERD (gastroesophageal reflux disease) [K21.9] 07/26/2015 Family history of breast cancer [Z80.3] 01/19/2019 Rheumatoid arthritis of multiple sites with neg*06/10/2022 Lumbosacral radiculopathy at L5 [M54.17] 05/05/2023 Lumbosacral radiculopathy at S1 [M54.17] 05/05/2023 Weakness of left lower extremity [R29.898] 05/05/2023 Postmenopausal [Z78.0] 05/16/2023 Vaginal atrophy [N95.2] 05/16/2023 Encounter for screening mammogram for breast ca*05/16/2023 Well adult exam [Z00.00] 06/09/2023 Vitamin D deficiency [E55.9] 06/09/2023 Lyme disease [A69.20] 06/09/2023 Left hip pain [M25.552] 06/09/2023 Dyslipidemia [E78.5] 06/09/2023 Encounter Status:Closed by RADHA FLETCHER on 07/25/23 Normal [facility] CNOVon 07-24-2023 CNOV Office Visit (FAMPWS ) -------- KHLOE FLORES ([id number]) 1970 F Date Time Provider Department 07/24/23 7:40 AM SENDY CANTRELL During your visit today, we recorded the following information about you: Temperature Pulse Respiration Blood pressure 99.4 degrees 81/minute 14/minute 150/82 Weight 64 kg Sendy CantrellJOVITA.HYDROGENATION STILL OPERATOR 07/24/2023 8:20 AM Addendum Chief Complaint Patient presents with: tic bite on left foot wants you look at HPI Khloe Flores is a 52 year old female who presents here today for Above Complaints. Khloe is an established patient of Dr. George, DO and myself. Concerns today... Per [facility]: Dr. George, I had a tick in my sock on Friday, July 11. Unfortunately, I now have a red spot on my left foot. Do I need to receive any treatment for this? I do not want to go through what I did this fall. Please advise me on what I need to do. Thank you, Khloe In office... Pt reports finding tick in her sock on July 12, did not think anything of it. Pt did not think tick was ever attached to skin. But then 1-2 days later noticed a red bump/bite to inside of L arch of foot. Pt now reports headache yesterday and today. Took tylenol this morning and tempeture in office was 99.4F. Pt has not taken temperature at home so unknown fever. No chills/night sweats. No bullseye rash, just redness at pinpoint site of bite. Only flu-like symptoms is headache so far. Pt hx of dx of lyme disease this past fall with neurological deficits at time of dx. Was also dx with band worth syndrome. Was seen by Dr. Fletcher in infectious disease, was treated with doxycycline x 1 month and symptoms slowly improved. Still in PT for mild gait instability issues. No other concerns or complaints. Past medical history, appointments, medications, allergies reviewed. Previous Medical History PAST MEDICAL HISTORY Diagnosis Date Acute cholecystitis Hypothyroidism Hypothyroidism 03/23/2015 Localization-related (focal) (partial) epilepsy and epileptic syndromes with simple partial seizures, without mention of intractable epilepsy grand mal last one age 7 Lyme disease Microcalcifications of the breast 06/10/2013 Left breast Osteopenia of neck of left femur 2022 Other specified disorder of gallbladder Rheumatoid arthritis(714.0) Sjogren's syndrome (HCC) 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 Sjogrens Syndrome Unspecified hypothyroidism Previous Surgical History PAST SURGICAL HISTORY Procedure Laterality Date ARTHROSCOPY KNEE DIAGNOSTIC W/WO SYNOVIAL BX SPX Left 86,84 Arthroscopy, knee BIOPSY OF BREAST 2013 microcalcifications COLONOSCOPY EGD LAPS SURG CHOLECYSTECTOMY W/CHOLANGIOGRAPHY 02/27/2005 NOVASURE 08/01/2015 HYSTEROSCOPY, ABLATION ENDOMETRIAL NOVASURE PAST SURGICAL HISTORY OF MOLE REMOVAL ON BACK X 2- benign PAST SURGICAL HISTORY OF wisdom teeth Family History FAMILY HISTORY Problem Relation Age of Onset Cancer Mother blood- multiple mylomia other (multiple myoloma) Mother Heart Father 54 MA; Hypertension Maternal Grandmother Diabetes Maternal Grandmother Breast Cancer Maternal Grandmother other (Gallbladder Cancer) Maternal Grandfather 70 other (Lung and Brain Cancer) Paternal Grandfather 70 Seizures Daughter Resolved Seizures Son Resolved Breast Cancer Other 40 Breast Cancer Other 60 Breast Cancer Other 70 Patient Allergies ALLERGIES Allergen Reactions Erythromycin Vomiting Floxin [Ofloxacin] Intolerance Guaifenesin Swelling lips swell Mycinette [Cetylpyr* Intolerance Sulfa (Sulfonamide * Swelling face Vesicare [Solifenac* Swelling tingle tongue Z-Pack [Azithromyci* Diarrhea, Vomiting Current Medications Current Outpatient Medications on File Prior to Visit Medication Sig liothyronine (CYTOMEL) 5 mcg tablet Take 2 tablets by mouth daily in the late afternoon. liothyronine (CYTOMEL) 5 mcg tablet Take 2 tablets by mouth daily in the late afternoon for 7 days. estradiol 10 mcg vaginal suppository maintenance pack (IMVEXXY) Use 1 Suppository vaginally two times a week. levothyroxine (LEVOXYL) 100 mcg tablet Take 1 tablet by mouth once daily. Take on empty stomach. For Thyroid. tofacitinib (XELJANZ XR) 11 mg tablet, extended release montelukast (SINGULAIR) 10 mg tablet Take 1 tablet by mouth daily at bedtime. ondansetron orally disintegrating (ZOFRAN ODT) 4 mg disintegrating tablet Take 1 tablet by mouth every 8 hours as needed for nausea/vomiting. levothyroxine (LEVOXYL) 100 mcg tablet Take 1 tablet by mouth daily before breakfast. Take on empty stomach. For Thyroid. (Patient not taking: Reported on 05/16/2023) cyanocobalamin, vitamin B-12, (VITAMIN B12 ORAL) Take by mouth. traMA (more content not included)... Normal [facility] CNTHERAPYon 07-22-2023 CNTHERAPY OT/PT/Speech Visit (PTWS) -------- KHLOE FLORES ([id number]) 1970 F Date Time Provider Department 07/22/23 3:45 PM ANDRAE BALL PTWS Date Time Provider Department Center 07/22/2023 3:45 PM [id number], COREY PTWS Mariann [place] Reason for Visit: PT Progress Note [1596] Primary Visit Diagnosis:Weakness of left lower extremity [R29.898] Other Visit Diagnoses:Lumbosacral radiculopathy at L5 [M54.17] Lumbosacral radiculopathy at S1 [M54.17] Allergies As of Date: 07/22/2023 Noted Allergy Reaction ERYTHROMYCIN 02/12/2023 11 - Vomiting FLOXIN (OFLOXACIN) 01/19/2005 5 - Intolerance GUAIFENESIN 01/19/2005 7 - Swelling Comments: lips swell MYCINETTE (CETYLPYRIDINIUM-BENZOC* 01/19/2005 5 - Intolerance SULFA (SULFONAMIDE ANTIBIOTICS) 01/19/2005 7 - Swelling Comments: face VESICARE (SOLIFENACIN SUCCINATE) 05/15/2007 7 - Swelling Comments: tingle tongue Z-PACK (AZITHROMYCIN) 03/16/2007 6 - Diarrhea 11 - Vomiting Date Reviewed: 06/27/2023 Reviewed by: Ashwini Lee MA - Fully Assessed Prescriptions as of 07/22/2023 - liothyronine (CYTOMEL) 5 mcg tablet Take 2 tablets by mouth daily in the late afternoon. - liothyronine (CYTOMEL) 5 mcg tablet Take 2 tablets by mouth daily in the late afternoon for 7 days. - estradiol 10 mcg vaginal suppository maintenance pack (IMVEXXY) Use 1 Suppository vaginally two times a week. - levothyroxine (LEVOXYL) 100 mcg tablet Take 1 tablet by mouth once daily. Take on empty stomach. For Thyroid. - tofacitinib (XELJANZ XR) 11 mg tablet, extended release - montelukast (SINGULAIR) 10 mg tablet Take 1 tablet by mouth daily at bedtime. - ondansetron orally disintegrating (ZOFRAN ODT) 4 mg disintegrating tablet Take 1 tablet by mouth every 8 hours as needed for nausea/vomiting. - levothyroxine (LEVOXYL) 100 mcg tablet Take 1 tablet by mouth daily before breakfast. Take on empty stomach. For Thyroid. - cyanocobalamin, vitamin B-12, (VITAMIN B12 ORAL) Take by mouth. - traMADOL 50 mg ORAL tablet Take 1 tablet by mouth. @ bedtime - methotrexate 2.5 mg ORAL tablet Take by mouth. Take 7 tablets a week - calcium carbonate/vitamin d3(CALCIUM 600 + D(3) 600 MG (1,500)-200 UNIT TAB) Take one(1) tablet twice daily. - FOLIC ACID 1 MG TAB Take one(1) tablet daily. - esomeprazole (NEXIUM) 40 mg ORAL CpDR Take one(1) capsule daily. - L-LYSINE 500 MG TAB 2 tabs daily - THERAPEUTIC MULTIVITAMIN TAB Take one(1) tablet daily. - TYLENOL ARTHRITIS 650 MG TAB two tabs twice daily - PLAQUENIL 200 MG TAB Take one tablet daily with breakfast and 1/2 tablet in the evening with dinner -------- Normal [facility] Radha 07-02-2023 SANJAY Telephone (NEURST) -------- KHLOE FLORES ([id number]) 1970 F Date Time Provider Department 07/02/23 JEROME ENG During your visit today, we recorded the following information about you: Ashwini Lee MA 07/02/2023 8:17 AM Signed Received request from Mela Garcia M.D. for last office note, printed and faxed to provider, received fax confirmation. Ashwini Lee MA Allergies As of Date: 07/02/2023 Noted Allergy Reaction ERYTHROMYCIN 02/12/2023 11 - Vomiting FLOXIN (OFLOXACIN) 01/19/2005 5 - Intolerance GUAIFENESIN 01/19/2005 7 - Swelling Comments: lips swell MYCINETTE (CETYLPYRIDINIUM-BENZOC* 01/19/2005 5 - Intolerance SULFA (SULFONAMIDE ANTIBIOTICS) 01/19/2005 7 - Swelling Comments: face VESICARE (SOLIFENACIN SUCCINATE) 05/15/2007 7 - Swelling Comments: tingle tongue Z-PACK (AZITHROMYCIN) 03/16/2007 6 - Diarrhea 11 - Vomiting Date Reviewed: 06/27/2023 Reviewed by: Ashwini Lee MA - Fully Assessed Prescriptions as of 07/02/2023 - liothyronine (CYTOMEL) 5 mcg tablet Take 2 tablets by mouth daily in the late afternoon. - liothyronine (CYTOMEL) 5 mcg tablet Take 2 tablets by mouth daily in the late afternoon for 7 days. - estradiol 10 mcg vaginal suppository maintenance pack (IMVEXXY) Use 1 Suppository vaginally two times a week. - levothyroxine (LEVOXYL) 100 mcg tablet Take 1 tablet by mouth once daily. Take on empty stomach. For Thyroid. - tofacitinib (XELJANZ XR) 11 mg tablet, extended release - montelukast (SINGULAIR) 10 mg tablet Take 1 tablet by mouth daily at bedtime. - ondansetron orally disintegrating (ZOFRAN ODT) 4 mg disintegrating tablet Take 1 tablet by mouth every 8 hours as needed for nausea/vomiting. - levothyroxine (LEVOXYL) 100 mcg tablet Take 1 tablet by mouth daily before breakfast. Take on empty stomach. For Thyroid. - cyanocobalamin, vitamin B-12, (VITAMIN B12 ORAL) Take by mouth. - traMADOL 50 mg ORAL tablet Take 1 tablet by mouth. @ bedtime - methotrexate 2.5 mg ORAL tablet Take by mouth. Take 7 tablets a week - calcium carbonate/vitamin d3(CALCIUM 600 + D(3) 600 MG (1,500)-200 UNIT TAB) Take one(1) tablet twice daily. - FOLIC ACID 1 MG TAB Take one(1) tablet daily. - esomeprazole (NEXIUM) 40 mg ORAL CpDR Take one(1) capsule daily. - L-LYSINE 500 MG TAB 2 tabs daily - THERAPEUTIC MULTIVITAMIN TAB Take one(1) tablet daily. - TYLENOL ARTHRITIS 650 MG TAB two tabs twice daily - PLAQUENIL 200 MG TAB Take one tablet daily with breakfast and 1/2 tablet in the evening with dinner Problem List As Of Date 07/02/2023 Noted Resolved Chronic cholecystitis [K81.1] 02/14/2005 03/06/2015 HYPOTHYROIDISM NOS [E03.9] 07/12/2005 03/23/2015 Other malaise and fatigue [R53.81, R53.83] 07/12/2005 03/06/2015 Myalgia and myositis, unspecified [VMJ3299] 07/12/2005 03/06/2015 Loss of weight [R63.4] 08/02/2005 03/06/2015 Sjogrens Syndrome [M35.00] 01/21/2007 Abnormal mammogram, unspecified [R92.8] 05/27/2013 03/06/2015 Abnormal mammogram with microcalcification [R92*06/17/2013 Hypothyroidism [E03.9] 03/23/2015 Rheumatoid arthritis involving multiple sites (*05/23/2015 GERD (gastroesophageal reflux disease) [K21.9] 07/26/2015 Family history of breast cancer [Z80.3] 01/19/2019 Rheumatoid arthritis of multiple sites with neg*06/10/2022 Lumbosacral radiculopathy at L5 [M54.17] 05/05/2023 Lumbosacral radiculopathy at S1 [M54.17] 05/05/2023 Weakness of left lower extremity [R29.898] 05/05/2023 Postmenopausal [Z78.0] 05/16/2023 Vaginal atrophy [N95.2] 05/16/2023 Encounter for screening mammogram for breast ca*05/16/2023 Well adult exam [Z00.00] 06/09/2023 Vitamin D deficiency [E55.9] 06/09/2023 Lyme disease [A69.20] 06/09/2023 Left hip pain [M25.552] 06/09/2023 Dyslipidemia [E78.5] 06/09/2023 Encounter Status:Closed by ASHWINI LEE on 07/02/23 Normal [facility] CNTHERAPYon 07-01-2023 CNTHERAPY OT/PT/Speech Visit (PTWS) -------- KHLOE FLORES ([id number]) 1970 F Date Time Provider Department 07/01/23 10:15 AM VIRIDIANA MARTÍNEZ PTWS Date Time Provider Department Center 07/01/2023 10:15 AM [id number], MARIAH PTWS Mariann [place] Reason for Visit: Physical Therapy [503] Primary Visit Diagnosis:Weakness of left lower extremity [R29.898] Other Visit Diagnoses:Lumbosacral radiculopathy at L5 [M54.17] Lumbosacral radiculopathy at S1 [M54.17] Allergies As of Date: 07/01/2023 Noted Allergy Reaction ERYTHROMYCIN 02/12/2023 11 - Vomiting FLOXIN (OFLOXACIN) 01/19/2005 5 - Intolerance GUAIFENESIN 01/19/2005 7 - Swelling Comments: lips swell MYCINETTE (CETYLPYRIDINIUM-BENZOC* 01/19/2005 5 - Intolerance SULFA (SULFONAMIDE ANTIBIOTICS) 01/19/2005 7 - Swelling Comments: face VESICARE (SOLIFENACIN SUCCINATE) 05/15/2007 7 - Swelling Comments: tingle tongue Z-PACK (AZITHROMYCIN) 03/16/2007 6 - Diarrhea 11 - Vomiting Date Reviewed: 06/27/2023 Reviewed by: Ashwini Lee MA - Fully Assessed Prescriptions as of 07/01/2023 - liothyronine (CYTOMEL) 5 mcg tablet Take 2 tablets by mouth daily in the late afternoon. - liothyronine (CYTOMEL) 5 mcg tablet Take 2 tablets by mouth daily in the late afternoon for 7 days. - estradiol 10 mcg vaginal suppository maintenance pack (IMVEXXY) Use 1 Suppository vaginally two times a week. - levothyroxine (LEVOXYL) 100 mcg tablet Take 1 tablet by mouth once daily. Take on empty stomach. For Thyroid. - tofacitinib (XELJANZ XR) 11 mg tablet, extended release - montelukast (SINGULAIR) 10 mg tablet Take 1 tablet by mouth daily at bedtime. - ondansetron orally disintegrating (ZOFRAN ODT) 4 mg disintegrating tablet Take 1 tablet by mouth every 8 hours as needed for nausea/vomiting. - levothyroxine (LEVOXYL) 100 mcg tablet Take 1 tablet by mouth daily before breakfast. Take on empty stomach. For Thyroid. - cyanocobalamin, vitamin B-12, (VITAMIN B12 ORAL) Take by mouth. - traMADOL 50 mg ORAL tablet Take 1 tablet by mouth. @ bedtime - methotrexate 2.5 mg ORAL tablet Take by mouth. Take 7 tablets a week - calcium carbonate/vitamin d3(CALCIUM 600 + D(3) 600 MG (1,500)-200 UNIT TAB) Take one(1) tablet twice daily. - FOLIC ACID 1 MG TAB Take one(1) tablet daily. - esomeprazole (NEXIUM) 40 mg ORAL CpDR Take one(1) capsule daily. - L-LYSINE 500 MG TAB 2 tabs daily - THERAPEUTIC MULTIVITAMIN TAB Take one(1) tablet daily. - TYLENOL ARTHRITIS 650 MG TAB two tabs twice daily - PLAQUENIL 200 MG TAB Take one tablet daily with breakfast and 1/2 tablet in the evening with dinner -------- Hand Scraper: Therapy (PT/OT/Speech/Resp) ID: [id number] 07/01/2023 10:44 AM Author: VIRIDIANA MARTÍNEZ Signed by VIRIDIANA MARTÍNEZ [employer]OUNTING [employer]ER[employer] SUPERVISOR on 07/01/2023 at 10:44 AM Document text: Program_ID:[id number] Access Code: [email or web address] URL: [email or web address] Date: 07-01-2023 Prepared By: Dayday Mortensen Program Notes Exercises - Supine Piriformis Stretch with Leg Straight - 1 x daily - 7 x weekly - 2 sets - 3 reps - Seated Ankle Plantarflexion with Resistance - 1 x daily - 7 x weekly - 1-2 sets - 10 reps - Ankle Inversion with Resistance - 1 x daily - 7 x weekly - 1-2 sets - 10 reps - Ankle Eversion with Resistance - 1 x daily - 7 x weekly - 1-2 sets - 10 reps - Long Sitting Plantar Fascia Stretch with Towel - 1 x daily - 7 x weekly - 1-2 sets - 3 reps - Supine Posterior Pelvic Tilt - 1 x daily - 7 x weekly - 2 sets - 10 reps - Supine Bridge - 1 x daily - 7 x weekly - 2 sets - 5 reps - Supine Gluteus Stretch - 1 x daily - 7 x weekly - 1 sets - 3 reps - Heel Raises with Counter Support - 1 x daily - 7 x weekly - 2 sets - 10 reps - Seated Transversus Abdominis Bracing - 1 x daily - 7 x weekly - 2 sets - 10 reps Normal [facility] THERAPY NTon 07-01-2023 THERAPY NT HNO ID: [id number] Author: VIRIDIANA MARTÍNEZ PTA Service: ? Author Type: [employer] Receptionist Type: Therapy (PT/OT/Speech/Resp) Filed: 07/01/2023 10:44 Note Text: Program_ID:[id number] Access Code: [email or web address] URL: [email or web address] Date: 07-01-2023 Prepared By: Dayday Mortensen Program Notes Exercises - Supine Piriformis Stretch with Leg Straight - 1 x daily - 7 x weekly - 2 sets - 3 reps - Seated Ankle Plantarflexion with Resistance - 1 x daily - 7 x weekly - 1-2 sets - 10 reps - Ankle Inversion with Resistance - 1 x daily - 7 x weekly - 1-2 sets - 10 reps - Ankle Eversion with Resistance - 1 x daily - 7 x weekly - 1-2 sets - 10 reps - Long Sitting Plantar Fascia Stretch with Towel - 1 x daily - 7 x weekly - 1-2 sets - 3 reps - Supine Posterior Pelvic Tilt - 1 x daily - 7 x weekly - 2 sets - 10 reps - Supine Bridge - 1 x daily - 7 x weekly - 2 sets - 5 reps - Supine Gluteus Stretch - 1 x daily - 7 x weekly - 1 sets - 3 reps - Heel Raises with Counter Support - 1 x daily - 7 x weekly - 2 sets - 10 reps - Seated Transversus Abdominis Bracing - 1 x daily - 7 x weekly - 2 sets - 10 reps Normal [facility] CNOVon 06-27-2023 CNOV Office Visit (NEURST ) -------- KHLOE FLORES ([id number]) 1970 F Date Time Provider Department 06/27/23 8:00 AM JEROME ENG During your visit today, we recorded the following information about you: Pulse Blood pressure Weight Height 79/minute 135/86 62 kg 1.6 m Jerome Eng MD 06/27/2023 8:36 AM [facility] 06/27/2023 8:36 AM Signed Office Visit 08:05 - 08:22 Parenthetic [comments] and tinted emphasis mine. 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 She seems to be recovering in the wake of her month of doxycycline (see HPI). I will get an MRI lumbar spine with contrast hopin) that the inflammation has been extinguished; and 2) that there is no co-moribidity (such as an L5/S1 herniated disc, for example). She is claustrophobic, but thinks that she can get through it. I have suggested PT to help strengthen the L5 and S1 innervated muscles in her left leg. I will see her back following PT. Her weakness last visit was as follows: Toe dorsiflexion 4/5 left. Toe plantar flexion is 4/5 left. Ankle dorsiflexion is 4+/5 left. Ankle plantar flexion is 5/5 left, but there is some inversion at the left ankle on forcefully plantar flexing. Ankle inversion is 4+/5 left. Ankle eversion is 4+/5 left. Knee flexion is 4+/5 left. Hip extension is 4+/5 left. ------ 05/16/23- I spoke to Mrs. Flores about her MRI lumbar spine findings. 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 It does not appear to be Bannwarth's syndrome (no contrast enhancement). She has started PT for her painful paresthesias, numbness and weakness and will see me in follow up on 06/27/23. I am most concerned about the weakness - at least as it affects her activities (eg, standing on one leg). If her weakness improves adequately, [but not her pain] then it might be possible to treat her pain/numbness with medication (eg gabapentin, SNRI), nerve root blocks, or both. With that preamble, Khloe's left pedal pain is a 1/10 ; she still feels she has a rolled up sock under the ball of her foot. It is rare for her to experience a sharp stab when she 'bowstrings' - once a day. Her numbness is restricted to her left arch, and at the tip of her great toe when she flexes it; there is no tingling anymore. Her strength has improved. She can wiggle her left toes again. She can stand on her left leg. She is still working on ankle stability, though. PAST MEDICAL HISTORY Diagnosis Date Acute cholecystitis Hypothyroidism Hypothyroidism 03/23/2015 Localization-related (focal) (partial) epilepsy and epileptic syndromes with simple partial seizures, without mention of intractable epilepsy grand mal last one age 7 Lyme disease Microcalcifications of the breast 06/10/2013 Left breast Osteopenia of neck of left femur 2022 Other specified disorder of gallbladder Rheumatoid arthritis(714.0) Sjogren's syndrome (HCC) 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 Sjogrens Syndrome Unspecified hypothyroidism PAST SURGICAL HISTORY Procedure Laterality Date ARTHROSCOPY KNEE DIAGNOSTIC W/WO SYNOVIAL BX SPX Left 86,84 Arthroscopy, knee BIOPSY OF BREAST 2014 microcalcifications COLONOSCOPY EGD LAPS SURG CHOLECYSTECTOMY W/CHOLANGIOGRAPHY 02/27/2005 NOVASURE 08/01/2015 HYSTEROSCOPY, ABLATION ENDOMETRIAL DASHAASURE PAST SURGICAL HISTORY OF MOLE REMOVAL ON BACK X 2- benign PAST SURGICAL HISTORY OF wisdom teeth Social History Tobacco Use Smoking status: Never Smokeless tobacco: Never Vaping Use Vaping Use: Never used Substance Use Topics Alcohol use: No Drug use: No FAMILY HISTORY Problem Relation Age of Onset Cancer Mother blood- multiple mylomia other (multiple myoloma) Mother Heart Father 54 MA; Hypertension Maternal Grandmother Diabetes Maternal Grandmother Breast Cancer Maternal Grandmother other (Gallbladder Cancer) Maternal Grandfather 70 other (Lung and Brain Cancer) Paternal Grandfather 70 Seizures Daughter Resolved Seizures Son Resolved Breast Cancer Other 40 Breast Cancer Other 60 Breast Cancer Other 70 Current Outpatient Medications on File Prior to Visit Medication Sig liothyronine (CYTOMEL) 5 mcg tablet Take 2 tablets by mouth daily in the late afternoon. liothyronine (CYTOMEL) 5 mcg tablet Take 2 tablets by mouth daily in the late afternoon for 7 days. estradiol 10 mcg vaginal suppository maintenance pack (IMVEXXY) Use 1 Suppository vaginally two chance (more content not included)... Normal [facility] HISTORY PHYSICALon HISTORY PHYSICAL HNO ID: [id number] Author: JEROME ENG MD Service: ? Author Type: Physician Type: H&P Filed: 06/27/2023 07:40 Note Text: Chart Review Parenthetic [comments] and tinted emphasis mine. 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 She seems to be recovering in the wake of her month of doxycycline (see HPI). I will get an MRI lumbar spine with contrast hopin) that the inflammation has been extinguished; and 2) that there is no co-moribidity (such as an L5/S1 herniated disc, for example). She is claustrophobic, but thinks that she can get through it. I have suggested PT to help strengthen the L5 and S1 innervated muscles in her left leg. I will see her back following PT. Her weakness last visit was as follows: Toe dorsiflexion 4/5 left. Toe plantar flexion is 4/5 left. Ankle dorsiflexion is 4+/5 left. Ankle plantar flexion is 5/5 left, but there is some inversion at the left ankle on forcefully plantar flexing. Ankle inversion is 4+/5 left. Ankle eversion is 4+/5 left. Knee flexion is 4+/5 left. Hip extension is 4+/5 left. ------ 05/16/23- I spoke to Mrs. Flores about her MRI lumbar spine findings. 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 It does not appear to be Bannwarth's syndrome (no contrast enhancement). She has started PT for her painful paresthesias, numbness and weakness and will see me in follow up on 06/27/23. I am most concerned about the weakness - at least as it affects her activities (eg, standing on one leg). If her weakness improves adequately, [but not her pain] then it might be possible to treat her pain/numbness with medication (eg gabapentin, SNRI), nerve root blocks, or both. Jerome Eng MD Normal [facility] HISTORY PHYSICAL HNO ID: [id number] Author: JEROME ENG MD Service: ? Author Type: Physician Type: H&P Filed: 06/27/2023 08:36 Note Text: Office Visit 08:05 - 08:22 Parenthetic [comments] and tinted emphasis mine. 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 She seems to be recovering in the wake of her month of doxycycline (see HPI). I will get an MRI lumbar spine with contrast hopin) that the inflammation has been extinguished; and 2) that there is no co-moribidity (such as an L5/S1 herniated disc, for example). She is claustrophobic, but thinks that she can get through it. I have suggested PT to help strengthen the L5 and S1 innervated muscles in her left leg. I will see her back following PT. Her weakness last visit was as follows: Toe dorsiflexion 4/5 left. Toe plantar flexion is 4/5 left. Ankle dorsiflexion is 4+/5 left. Ankle plantar flexion is 5/5 left, but there is some inversion at the left ankle on forcefully plantar flexing. Ankle inversion is 4+/5 left. Ankle eversion is 4+/5 left. Knee flexion is 4+/5 left. Hip extension is 4+/5 left. ------ 05/16/23- I spoke to Mrs. Flores about her MRI lumbar spine findings. 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 It does not appear to be Bannwarth's syndrome (no contrast enhancement). She has started PT for her painful paresthesias, numbness and weakness and will see me in follow up on 06/27/23. I am most concerned about the weakness - at least as it affects her activities (eg, standing on one leg). If her weakness improves adequately, [but not her pain] then it might be possible to treat her pain/numbness with medication (eg gabapentin, SNRI), nerve root blocks, or both. With that preamble, Khloe's left pedal pain is a 1/10 ; she still feels she has a rolled up sock under the ball of her foot. It is rare for her to experience a sharp stab when she 'bowstrings' - once a day. Her numbness is restricted to her left arch, and at the tip of her great toe when she flexes it; there is no tingling anymore. Her strength has improved. She can wiggle her left toes again. She can stand on her left leg. She is still working on ankle stability, though. PAST MEDICAL HISTORY Diagnosis Date Acute cholecystitis Hypothyroidism Hypothyroidism 03/23/2015 Localization-related (focal) (partial) epilepsy and epileptic syndromes with simple partial seizures, without mention of intractable epilepsy grand mal last one age 7 Lyme disease Microcalcifications of the breast 06/10/2013 Left breast Osteopenia of neck of left femur 2022 Other specified disorder of gallbladder Rheumatoid arthritis(714.0) Sjogren's syndrome (HCC) 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 Sjogrens Syndrome Unspecified hypothyroidism PAST SURGICAL HISTORY Procedure Laterality Date ARTHROSCOPY KNEE DIAGNOSTIC W/WO SYNOVIAL BX SPX Left 86,84 Arthroscopy, knee BIOPSY OF BREAST 2014 microcalcifications COLONOSCOPY EGD LAPS SURG CHOLECYSTECTOMY W/CHOLANGIOGRAPHY 02/27/2005 DASHAASURE 08/01/2015 HYSTEROSCOPY, ABLATION ENDOMETRIAL DASHAASURE PAST SURGICAL HISTORY OF MOLE REMOVAL ON BACK X 2- benign PAST SURGICAL HISTORY OF wisdom teeth Social History Tobacco Use Smoking status: Never Smokeless tobacco: Never Vaping Use Vaping Use: Never used Substance Use Topics Alcohol use: No Drug use: No FAMILY HISTORY Problem Relation Age of Onset Cancer Mother blood- multiple mylomia other (multiple myoloma) Mother Heart Father 54 MA; Hypertension Maternal Grandmother Diabetes Maternal Grandmother Breast Cancer Maternal Grandmother other (Gallbladder Cancer) Maternal Grandfather 70 other (Lung and Brain Cancer) Paternal Grandfather 70 Seizures Daughter Resolved Seizures Son Resolved Breast Cancer Other 40 Breast Cancer Other 60 Breast Cancer Other 70 Current Outpatient Medications on File Prior to Visit Medication Sig liothyronine (CYTOMEL) 5 mcg tablet Take 2 tablets by mouth daily in the late afternoon. liothyronine (CYTOMEL) 5 mcg tablet Take 2 tablets by mouth daily in the late afternoon for 7 days. estradiol 10 mcg vaginal suppository maintenance pack (IMVEXXY) Use 1 Suppository vaginally two times a week. levothyroxine (LEVOXYL) 100 mcg tablet Take 1 tablet by mouth once daily. Take on empty stomach. For Thyroid. tofacitinib (XELJANZ XR) 11 mg tablet, extended release montelukast (SINGULAIR) 10 mg tablet Take 1 tablet by mouth daily at bedtime. ondansetron orally disintegrating (ZOFRAN ODT) 4 mg disintegrating tablet Take 1 ta (more content not included)... Normal [facility] CNTHERAPYon 06-23-2023 CNTHERAPY OT/PT/Speech Visit (PTWS) -------- KHLOE FLORES ([id number]) 1970 F Date Time Provider Department 06/23/23 5:15 PM VIRIDIANA MARTÍNEZ PTPORSHA Date Time Provider Department Center 06/23/2023 5:15 PM [id number], MARIAH PTPORSHA [place] Reason for Visit: Physical Therapy [503] Primary Visit Diagnosis:Weakness of left lower extremity [R29.898] Other Visit Diagnoses:Lumbosacral radiculopathy at L5 [M54.17] Lumbosacral radiculopathy at S1 [M54.17] Allergies As of Date: 06/23/2023 Noted Allergy Reaction ERYTHROMYCIN 02/12/2023 11 - Vomiting FLOXIN (OFLOXACIN) 01/19/2005 5 - Intolerance GUAIFENESIN 01/19/2005 7 - Swelling Comments: lips swell MYCINETTE (CETYLPYRIDINIUM-BENZOC* 01/19/2005 5 - Intolerance SULFA (SULFONAMIDE ANTIBIOTICS) 01/19/2005 7 - Swelling Comments: face VESICARE (SOLIFENACIN SUCCINATE) 05/15/2007 7 - Swelling Comments: tingle tongue Z-PACK (AZITHROMYCIN) 03/16/2007 6 - Diarrhea 11 - Vomiting Date Reviewed: 06/09/2023 Reviewed by: Ursula Hernández Ma - Fully Assessed Prescriptions as of 06/25/2023 - liothyronine (CYTOMEL) 5 mcg tablet Take 2 tablets by mouth daily in the late afternoon. - liothyronine (CYTOMEL) 5 mcg tablet Take 2 tablets by mouth daily in the late afternoon for 7 days. - estradiol 10 mcg vaginal suppository maintenance pack (IMVEXXY) Use 1 Suppository vaginally two times a week. - levothyroxine (LEVOXYL) 100 mcg tablet Take 1 tablet by mouth once daily. Take on empty stomach. For Thyroid. - tofacitinib (XELJANZ XR) 11 mg tablet, extended release - montelukast (SINGULAIR) 10 mg tablet Take 1 tablet by mouth daily at bedtime. - ondansetron orally disintegrating (ZOFRAN ODT) 4 mg disintegrating tablet Take 1 tablet by mouth every 8 hours as needed for nausea/vomiting. - levothyroxine (LEVOXYL) 100 mcg tablet Take 1 tablet by mouth daily before breakfast. Take on empty stomach. For Thyroid. - cyanocobalamin, vitamin B-12, (VITAMIN B12 ORAL) Take by mouth. - traMADOL 50 mg ORAL tablet Take 1 tablet by mouth. @ bedtime - methotrexate 2.5 mg ORAL tablet Take by mouth. Take 7 tablets a week - calcium carbonate/vitamin d3(CALCIUM 600 + D(3) 600 MG (1,500)-200 UNIT TAB) Take one(1) tablet twice daily. - FOLIC ACID 1 MG TAB Take one(1) tablet daily. - esomeprazole (NEXIUM) 40 mg ORAL CpDR Take one(1) capsule daily. - L-LYSINE 500 MG TAB 2 tabs daily - THERAPEUTIC MULTIVITAMIN TAB Take one(1) tablet daily. - TYLENOL ARTHRITIS 650 MG TAB two tabs twice daily - PLAQUENIL 200 MG TAB Take one tablet daily with breakfast and 1/2 tablet in the evening with dinner -------- Normal [facility] CNTHERAPYon 06-12-2023 CNTHERAPY OT/PT/Speech Visit (PTWS) -------- KHLOE FLORES ([id number]) 1970 F Date Time Provider Department 06/12/23 3:45 PM DAYDAY SAGE Date Time Provider Department Center 06/12/2023 3:45 PM [id number] SAGE Reason for Visit: PT Progress Note [1596] Primary Visit Diagnosis:Weakness of left lower extremity [R29.898] Other Visit Diagnoses:Lumbosacral radiculopathy at L5 [M54.17] Lumbosacral radiculopathy at S1 [M54.17] Allergies As of Date: 06/12/2023 Noted Allergy Reaction ERYTHROMYCIN 02/12/2023 11 - Vomiting FLOXIN (OFLOXACIN) 01/19/2005 5 - Intolerance GUAIFENESIN 01/19/2005 7 - Swelling Comments: lips swell MYCINETTE (CETYLPYRIDINIUM-BENZOC* 01/19/2005 5 - Intolerance SULFA (SULFONAMIDE ANTIBIOTICS) 01/19/2005 7 - Swelling Comments: face VESICARE (SOLIFENACIN SUCCINATE) 05/15/2007 7 - Swelling Comments: tingle tongue Z-PACK (AZITHROMYCIN) 03/16/2007 6 - Diarrhea 11 - Vomiting Date Reviewed: 06/09/2023 Reviewed by: Ursula Hernández Ma - Fully Assessed Prescriptions as of 06/12/2023 - liothyronine (CYTOMEL) 5 mcg tablet Take 2 tablets by mouth daily in the late afternoon. - liothyronine (CYTOMEL) 5 mcg tablet Take 2 tablets by mouth daily in the late afternoon for 7 days. - estradiol 10 mcg vaginal suppository maintenance pack (IMVEXXY) Use 1 Suppository vaginally two times a week. - levothyroxine (LEVOXYL) 100 mcg tablet Take 1 tablet by mouth once daily. Take on empty stomach. For Thyroid. - tofacitinib (XELJANZ XR) 11 mg tablet, extended release - montelukast (SINGULAIR) 10 mg tablet Take 1 tablet by mouth daily at bedtime. - ondansetron orally disintegrating (ZOFRAN ODT) 4 mg disintegrating tablet Take 1 tablet by mouth every 8 hours as needed for nausea/vomiting. - levothyroxine (LEVOXYL) 100 mcg tablet Take 1 tablet by mouth daily before breakfast. Take on empty stomach. For Thyroid. - cyanocobalamin, vitamin B-12, (VITAMIN B12 ORAL) Take by mouth. - traMADOL 50 mg ORAL tablet Take 1 tablet by mouth. @ bedtime - methotrexate 2.5 mg ORAL tablet Take by mouth. Take 7 tablets a week - calcium carbonate/vitamin d3(CALCIUM 600 + D(3) 600 MG (1,500)-200 UNIT TAB) Take one(1) tablet twice daily. - FOLIC ACID 1 MG TAB Take one(1) tablet daily. - esomeprazole (NEXIUM) 40 mg ORAL CpDR Take one(1) capsule daily. - L-LYSINE 500 MG TAB 2 tabs daily - THERAPEUTIC MULTIVITAMIN TAB Take one(1) tablet daily. - TYLENOL ARTHRITIS 650 MG TAB two tabs twice daily - PLAQUENIL 200 MG TAB Take one tablet daily with breakfast and 1/2 tablet in the evening with dinner -------- Hand Scraper: Addendum Therapy (PT/OT/Speech/Resp) ID: [id number] 06/12/2023 4:14 PM Author: DAYDAY SAGE Signed by DAYDAY SAGE PT, DPT on 06/12/2023 at 4:14 PM * * * This document replaces document [id number] * * * Document text: Program_ID:[id number] Access Code: [email or web address] URL: [email or web address] Date: 06-12-2023 Prepared By: Dayday Mortensen Program Notes Exercises - Supine 90/90 Sciatic Nerve Fortescue with Knee Flexion/Extension - 1 x daily - 7 x weekly - 2 sets - 10 reps - Supine Piriformis Stretch with Leg Straight - 1 x daily - 7 x weekly - 2 sets - 3 reps - Small Range Straight Leg Raise - 1 x daily - 7 x weekly - 2 sets - 10 reps - Long Sitting Ankle Pumps - 1 x daily - 7 x weekly - 2 sets - 10 reps - Towel Scrunches - 1 x daily - 7 x weekly - 2 sets - 10 reps - Seated Ankle Plantarflexion with Resistance - 1 x daily - 7 x weekly - 1-2 sets - 10 reps - Ankle Inversion with Resistance - 1 x daily - 7 x weekly - 1-2 sets - 10 reps - Ankle Eversion with Resistance - 1 x daily - 7 x weekly - 1-2 sets - 10 reps - Long Sitting Plantar Fascia Stretch with Towel - 1 x daily - 7 x weekly - 1-2 sets - 3 reps - Seated Slump Nerve Fortescue - 1 x daily - 7 x weekly - 1-2 sets - 10 reps Normal [facility] THERAPY NTon 06-12-2023 THERAPY NT HNO ID: [id number] Author: DAYDAY SAGE PT, DPT Service: ? Author Type: Physical Therapist Type: Therapy (PT/OT/Speech/Resp) Filed: 06/12/2023 16:13 Note Text: Program_ID:[id number] Access Code: [email or web address] URL: [email or web address] Date: 06-12-2023 Prepared By: Dayday Mortensen Program Notes Exercises - Supine 90/90 Sciatic Nerve Fortescue with Knee Flexion/Extension - 1 x daily - 7 x weekly - 2 sets - 10 reps - Supine Piriformis Stretch with Leg Straight - 1 x daily - 7 x weekly - 2 sets - 3 reps - Small Range Straight Leg Raise - 1 x daily - 7 x weekly - 2 sets - 10 reps - Long Sitting Ankle Pumps - 1 x daily - 7 x weekly - 2 sets - 10 reps - Towel Scrunches - 1 x daily - 7 x weekly - 2 sets - 10 reps - Seated Ankle Plantarflexion with Resistance - 1 x daily - 7 x weekly - 1-2 sets - 10 reps - Ankle Inversion with Resistance - 1 x daily - 7 x weekly - 1-2 sets - 10 reps - Ankle Eversion with Resistance - 1 x daily - 7 x weekly - 1-2 sets - 10 reps - Long Sitting Plantar Fascia Stretch with Towel - 1 x daily - 7 x weekly - 1-2 sets - 3 reps - Seated Slump Nerve Fortescue - 1 x daily - 7 x weekly - 1-2 sets - 10 reps Normal [facility] CNOVon 06-09-2023 CNOV Office Visit (FAMPWS ) -------- KHLOE FLORES ([id number]) 1970 F Date Time Provider Department 06/09/23 7:40 [facility] visit today, we recorded the following information about you: Pulse Respiration Blood pressure Weight 86/minute 16/minute 128/80 63.5 kg Height 1.62 m Jan George DO 06/09/2023 10:12 AM Signed CC: Khloe Flores is a 52 year old female who presents to the office for physical HPI: Hypothyroidism, taking levothyroxine and cytomel, no concerns TSH Date Value Ref Range Status 06/04/2023 0.245 (L) 0.270 - 4.200 mIU/L Final Free T3 3.4 06/04/2023 Free T4 Date Value Ref Range Status 06/04/2023 1.2 0.9 - 1.7 ng/dL Final Recently diagnosed Lyme disease and treated. Diagnosed with band worth syndrome and feels her gait is slowly improving. Symptoms are improving Rheumatoid arthritis, taking Xeljanz medication. 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 Glucose Date Value 06/04/2023 74 mg/dL 12/07/2019 73 MG/DL 08/19/2019 55 mg/dL Potassium (mmol/L) Date Value 06/04/2023 3.9 08/19/2019 3.9 K (mmol/L) Date Value 12/07/2019 3.5 Sodium (mmol/L) Date Value 06/04/2023 139 08/19/2019 141 NA (mmol/L) Date Value 12/07/2019 141 Chloride Date Value 06/04/2023 104 mmol/L 12/07/2019 106 MEQ/L 08/19/2019 103 mmol/L CO2 Date Value 06/04/2023 25 mmol/L 12/07/2019 31.0 MEQ/L 08/19/2019 27 mmol/L Creatinine Date Value 06/04/2023 0.57 mg/dL 12/07/2019 0.73 MG/DL 08/19/2019 0.72 mg/dL BUN Date Value 06/04/2023 10 mg/dL 12/07/2019 9 MG/DL 08/19/2019 7 mg/dL Anion Gap (mmol/L) Date Value 06/04/2023 10 08/19/2019 11 Calcium (mg/dL) Date Value 12/07/2019 9.5 08/19/2019 9.4 Calcium, Total (mg/dL) Date Value 06/04/2023 9.7 Protein, Total (g/dL) Date Value 06/04/2023 7.0 09/04/2005 8.1 Albumin Date Value 06/04/2023 4.7 g/dL 12/07/2019 4.3 gm/dL 09/04/2005 4.8 g/dL Bilirubin, Total (mg/dL) Date Value 06/04/2023 0.3 09/04/2005 0.6 Alkaline Phosphatase (U/L) Date Value 06/04/2023 68 09/04/2005 58 Alk Phos Total (U/L) Date Value 12/07/2019 65 AST (U/L) Date Value 06/04/2023 37 09/04/2005 31 AST (SGOT) (U/L) Date Value 12/07/2019 32 ALT (U/L) Date Value 06/04/2023 27 09/04/2005 38 ALT (SGPT) (U/L) Date Value 12/07/2019 36 PAST MEDICAL HISTORY Diagnosis Date Acute cholecystitis Hypothyroidism Hypothyroidism 03/23/2015 Localization-related (focal) (partial) epilepsy and epileptic syndromes with simple partial seizures, without mention of intractable epilepsy grand mal last one age 7 Lyme disease Microcalcifications of the breast 06/10/2013 Left breast Osteopenia of neck of left femur 2022 Other specified disorder of gallbladder Rheumatoid arthritis(714.0) Sjogren's syndrome (HCC) 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 Sjogrens Syndrome Unspecified hypothyroidism PAST SURGICAL HISTORY Procedure Laterality Date ARTHROSCOPY KNEE DIAGNOSTIC W/WO SYNOVIAL BX SPX Left 86,84 Arthroscopy, knee BIOPSY OF BREAST 2014 microcalcifications COLONOSCOPY EGD LAPS SURG CHOLECYSTECTOMY W/CHOLANGIOGRAPHY 02/27/2005 NOVASURE 08/01/2015 HYSTEROSCOPY, ABLATION ENDOMETRIAL NOVASURE PAST SURGICAL HISTORY OF MOLE REMOVAL ON BACK X 2- benign PAST SURGICAL HISTORY OF wisdom teeth Social History: Social History Tobacco Use Smoking status: Never Smokeless tobacco: Never Vaping Use Vaping Use: Never used Substance Use Topics Alcohol use: No Drug use: No FAMILY HISTORY Problem Relation Age of Onset Cancer Mother blood- multiple mylomia other (multiple myoloma) Mother Heart Father 54 MA; Hypertension Maternal Grandmother Diabetes Maternal Grandmother Breast Cancer Maternal Grandmother other (Gallbladder Cancer) Maternal Grandfather 70 other (Lung and Brain Cancer) Paternal Grandfather 70 Seizures Daughter Resolved Seizures Son Resolved Breast Cancer Other 40 Breast Cancer Other 60 Breast Cancer Other 70 Current Outpatient prescriptions: estradiol 10 mcg vaginal suppository maintenance pack (IMVEXXY) Use 1 Suppository vaginally two times a week. levothyroxine (LEVOXYL) 100 mcg tablet Take 1 tablet by mouth once daily. Take on empty stomach. For Thyroid. tofacitinib (XELJANZ XR) 11 mg tablet, extended release montelukast (SINGULAIR) 10 mg tablet Take 1 tablet by mouth daily at bedtime. ondansetron orally disintegrating (ZOFRAN ODT) 4 mg disintegrating tablet Take 1 tablet by mouth every 8 hours as needed for nausea/vomiting. liothyronine (CYTOMEL) 5 mcg tablet Take 2 tablets by mouth daily in the late afternoon. levothyroxine (LEVOXYL) 100 mcg tablet Take 1 tablet by mouth daily bef (more content not included)... Normal [facility] 25(OH[facility]D3 [facility] 25-hydroxyvitamin D3 [Mass/Vol] 69.4 ng/mL Normal 31.0-80.0 [facility] Comment on above: Order Comment: Speci men Type: BLOOD SPECIMENOrdering Facility: [facility] Address: [address] [place] [address] Performed By: #### T CATIE, 1987-05 ####[facility] LAB[facility]IA [id number] [place] [address] [place] Comprehensive metabolic 2000 panelon 06-04-2023 Albumin [Mass/Vol] 4.7 g/dL Normal 3.9-4.9 [facility] Comment on above: Order Comment: Speci men Type: BLOOD SPECIMEN Ordering Facility: [facility] Address: [address] [place] [address] Performed By: #### 2 132-9, 3024-7, 3051-0, 3016-3 #### [facility] CLIA [id number] [address] [place] [address] [place] ALP [Catalytic activity/Vol] 68 U/L Normal 34-123 [facility] Comment on above: Order Comment: Speci men Type: BLOOD SPECIMEN [facility]ing Facility: [facility] Address: [address] [place] [address] Performed By: #### 2 132-9, 3024-7, 3051-0, 3016-3 #### [facility] CLIA [id number] [address] [place] [address] [place] ALT [Catalytic activity/Vol] 27 U/L Normal 7-38 [facility] Comment on above: Order Comment: Speci men Type: BLOOD SPECIMEN [facility]ing Facility: [facility] Address: [address] [place] [address] Performed By: #### 2 132-9, 3024-7, 3051-0, 3016-3 #### [facility] CLIA [id number] [address] [place] [address] [place] Anion gap [Moles/Vol] 10 mmol/L Normal 9-18 [facility] Comment on above: Order Comment: Speci men Type: BLOOD SPECIMEN [facility]ing Facility: [facility] Address: [address] [place] [address] Performed By: #### 2 132-9, 3024-7, 305-0, 3016-3 #### [facility] CLIA [id number] [address] [place] [address] [place] AST [Catalytic activity/Vol] 37 U/L High 13-35 [facility] Comment on above: Order Comment: Speci men Type: BLOOD SPECIMEN [facility]ing [facility]: [facility] Address: [address] [place] [address] Performed By: #### 2 132-9, 3024-7, 305-0, 3016-3 #### [facility] CLIA [id number] [address] [place] [address] [place] Bilirubin [Mass/Vol] 0.3 mg/dL Normal 0.2-1.3 [facility] Comment on above: Order Comment: Speci men Type: BLOOD SPECIMEN [facility]ing [facility]: [facility] Address: [address] [place] [address] Performed By: #### 2 132-9, 3024-7, 3051-0, 3016-3 #### [facility] CLIA [id number] [address] [place] [address] [place] Calcium [Mass/Vol] 9.7 mg/dL Normal 8.5-10.2 [facility] Comment on above: Order Comment: Speci men Type: BLOOD SPECIMEN [facility]ing Facility: [facility] Address: [address] [place] [address] Performed By: #### 2 132-9, 3024-7, 3050-0, 3015-3 #### [facility] CLIA [id number] [address] [place] [address] [place] Chloride [Moles/Vol] 104 mmol/L Normal 97-105 [facility] Comment on above: Order Comment: Speci men Type: BLOOD SPECIMEN [facility]: [facility] Address: [address] [place] [address] Performed By: #### 2 132-9, 302-7, 3050-0, 3 #### [facility] CLIA [id number] [address] [place] [address] [place] CO2 [Moles/Vol] 25 mmol/L Normal 22-30 [facility] Comment on above: Order Comment: Speci men Type: BLOOD SPECIMEN [facility]ing [facility]: [facility] Address: [address] [place] [address] Performed By: #### 2 132-9, 302-7, 0, 3 #### [facility] CLIA [id number] [address] [place], [place] [id number] [place] Creatinine [Mass/Vol] 0.57 mg/dL Low 0.58-0.96 [facility] Comment on above: Order Comment: Speci men Type: BLOOD SPECIMEN [facility]ing [facility]: [facility] Address: [address] [place] [address] Performed By: #### 2 132-9, 3024-7, 305-0, 3016-3 #### [facility] CLIA [id number] [address] [place] [address] [place] Creatinine and Glomerular filtration rate.predicted panel (S/P/Bld) 110 mL/min/1.73m??? Normal >=60 [facility] Comment on above: Order Comment: Eleazar bedolla Type: BLOOD SPECIMEN Ordering Facility: [facility] Address: [address] [place] [address] Result Comment: Kay mated Glomerular Filtration Rate (eGFR) is calculated using the 2020 CKD-EPI creatinine equation. This equation utilizes serum creatinine, sex, and age as parameters. The creatinine assay has traceable calibration to isotope dilution-mass spectrometry. Refer to KDIGO guidelines for clinical interpretation. In patients with unstable renal function, e.g. those with acute kidney injury, the eGFR may not accurately reflect actual GFR. Performed By: #### 2 132-9, 3024-7, 305-0, 3015-3 #### [facility] CLIA [id number] [address] [place] [address] [place] Glucose [Mass/Vol] 74 mg/dL Normal 74-99 [facility] Comment on above: Order Comment: Eleazar bedolla Type: BLOOD SPECIMEN [facility]: [facility] Address: [address] [place] [address] Result Comment: The [place] Diabetes Association (ADA) provides guidance for cutoff values for fasting glucose and random glucose. The ADA defines fasting as no caloric intake for at least 8 hours. Fasting plasma glucose results between 100 to 125 mg/dL indicate increased risk for diabetes (prediabetes). Fasting plasma glucose results greater than or equal to 126 mg/dL meet the criteria for diagnosis of diabetes. In the absence of unequivocal hyperglycemia, results should be confirmed by repeat testing. In a patient with classic symptoms of hyperglycemia or hyperglycemic crisis, random plasma glucose results greater than or equal to 200 mg/dL meet the criteria for diagnosis of diabetes. Reference: Standards of Medical Care in Diabetes 2016, [place] [employer] Association. Diabetes Care. 2016.39(Suppl 1). Performed By: #### 2 132-9, 3024-7, 305-0, 3016-3 #### [facility] CLIA [id number] [address] [place] [address] [place] Potassium [Moles/Vol] 3.9 mmol/L Normal 3.7-5.1 [facility] Comment on above: Order Comment: Speci men Type: BLOOD SPECIMEN Ordering [facility]: [facility] Address: [address] [place] [address] Performed By: #### 2 132-9, 3024-7, 305-0, 3015-3 #### [facility] CLIA [id number] [address] [place] [address] [place] Protein [Mass/Vol] 7.0 g/dL Normal 6.3-8.0 [facility] Comment on above: Order Comment: Speci men Type: BLOOD SPECIMEN [facility] Address: [address] [place] [address] Performed By: #### 2 132-9, 3024-7, 305-0, 3015-3 #### [facility] CLIA [id number] [address] [place], [place] [address] [place] Sodium [Moles/Vol] 139 mmol/L Normal 136-144 [facility] Comment on above: Order Comment: Speci men Type: BLOOD SPECIMEN [facility] Address: [address] [place] [address] Performed By: #### 2 132-9, 3024-7, 305-0, 3015-3 #### [facility] CLIA [id number] [address] [place] [address] [place] Urea nitrogen [Mass/Vol] 10 mg/dL Normal 7-21 [facility] Comment on above: Order Comment: Speci men Type: BLOOD SPECIMEN [facility]: [facility] Address: [address] [place] [address] Performed By: #### 2 132-9, 3024-7, 305-0, 6-3 #### [facility] CLIA [id number] [address] [place] [address] [place] HbA1c (Bld)on 06-04-2023 Average glucose Estimated from glycated hemoglobin (Bld) [Mass/Vol] 97 mg/dL Normal [facility] Comment on above: Order Comment: Eleazar bedolla Type: BLOOD SPECIMEN [facility]: [facility] Address: [address] [place] [address] Result Comment: eAG: (Estimated average glucose) is a calculated value from HgbA1c and is advertising account representative of the average blood glucose level in the last 2-3 month period. Performed By: #### 2 132-9, 3024-7, 3051-0, 6-3 #### [facility] CLIA [id number] [address] [place] [address] [place] HbA1c (Bld) [Mass fraction] 5.0 % Normal 4.3-5.6 [facility] Comment on above: Order Comment: Eleazar bedolla Type: BLOOD SPECIMEN [facility]: [facility] Address: [address] [place] [address] Result Comment: [place] Diabetes Association guidelines indicate that patients with HgbA1c in the range 5.7-6.4% are at increased risk for development of diabetes, and intervention by lifestyle modification may be beneficial. HgbA1c greater or equal to 6.5% is considered diagnostic of diabetes. Performed By: #### 2 132-9, 3024-7, 305-0, 6-3 #### [facility] IA [id number] [address] [place] [address] [place] T3Free SerPl-mCncon 06-04-19 24 Free T3 [Mass/Vol] 3.4 pg/mL Normal 2.3-4.1 [facility] Comment on above: Order Comment: Eleazar bedolla Type: BLOOD SPECIMEN [facility]: [facility] Address: [address] [place] [address] Performed By: #### 2 132-9, 3024-7, 3051-0, 3016-3 #### [facility] CLIA [id number] [address] [place] [address] [place] T4 Free SerPl-mCncon 024 Free T4 [Mass/Vol] 1.2 ng/dL Normal 0.9-1.7 [facility] Comment on above: Order Comment: Speci men Type: BLOOD SPECIMEN [facility]: [facility] Address: [address] [place] [address] Performed By: #### 2 132-9, 3023-7, 0, 3015-05 #### [facility] CLIA [id number] [address] [place] [address] [place] THYROGLOBULIN ABon Thyroglobulin Ab Qn [IU]/mL Normal <4.0 [facility] Comment on above: Order Comment: Speci [facility] Type: BLOOD SPECIMENOrdering Facility: [facility] Address: [address] [place] [address] Result Comment: The Thyroglobulin Antibody test was performed using the [place] ParQ[employer] Unicel DXI paramagnetic particle chemiluminescent immunoassay method. Results obtained with different assay methods or kits cannot be used interchangeably. Performed By: #### T CATIE, 1987-05 ####[facility] LABCLIA [id number] [place] [address] [place] TSH SerPl-aCncon 06-04-2023 TSH Qn 0.245 m[IU]/L Low 0.270-4.200 [facility] Comment on above: Order Comment: Speci men Type: BLOOD SPECIMEN [facility]: [facility] Address: [address] [place] [address] Performed By: #### 2 132-9, 302-7, 0, 3015-05 #### [facility] CLIA [id number] [address] [place] [address] [place] Vit B12 SerPl-mCncon 024 Cobalamin (Vitamin B12) [Mass/Vol] pg/mL High 232-1248 [facility] Comment on above: Order Comment: Speci men Type: BLOOD SPECIMEN [facility]: [facility] Address: [address] [place] [address] Performed By: #### 2 132-9, 3024-7, 3051-0, 3016-3 #### [facility] CLIA [id number] [address] [place] [address] [id number] [place] [address] [place] CNPNon 06-02-2023 CNPN Telephone (FAMPWS) -------- KHLOE FLORES ([id number]) 1970 F Date Time Provider Department 06/02/23 [facility] During your visit today, we recorded the following information about you: Ketty Leon Ma 06/02/2023 9:00 AM Signed Pt has upcoming Physical scheduled on 06/09/23. Sent in [employer] message requesting labs to be placed and thyroid labs. Pended labs, please review and file. Update pt via [employer] once filed. Will leave encounter open. Pt had CBC and Sed Rate completed on 05/[address] Garcia. Jan Soares Ma, DO 06/03/2023 1:01 PM Signed Please let her know I have ordered labs to be drawn DO Chloe Aguilar Susan LPN 06/03/2023 1:04 PM Signed Pt. informed via My Chart Allergies As of Date: 06/02/2023 Noted Allergy Reaction ERYTHROMYCIN 02/12/2023 11 - Vomiting FLOXIN (OFLOXACIN) 01/19/2005 5 - Intolerance GUAIFENESIN 01/19/2005 7 - Swelling Comments: lips swell MYCINETTE (CETYLPYRIDINIUM-BENZOC* 01/19/2005 5 - Intolerance SULFA (SULFONAMIDE ANTIBIOTICS) 01/19/2005 7 - Swelling Comments: face VESICARE (SOLIFENACIN SUCCINATE) 05/15/2007 7 - Swelling Comments: tingle tongue Z-PACK (AZITHROMYCIN) 03/16/2007 6 - Diarrhea 11 - Vomiting Date Reviewed: 05/16/2023 Reviewed by: Kiersten Wright Ma - Fully Assessed Reason for Visit: Lab Orders [1688] Primary Visit Diagnosis:Well adult exam [Z00.00] Other Visit Diagnoses: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] Vitamin D deficiency [E55.9] Sicca syndrome (HCC) [M35.00] Order(s):COMP METABOLIC PANEL [SQCMP] Order #: [id number] FUTURE LIPID PANEL BASIC [SQLIPB] Order #: [id number] FUTURE TSH BLD [SQTSH] Order #: [id number] FUTURE T3 FREE BLD [SQFREET3] Order #: [id number] FUTURE T4 FREE/FREE THYROX [SQFT4] Order #: [id number] FUTURE VITAMIN B12 BLOOD [SQB12] Order #: [id number] FUTURE VITAMIN D 25 HYDROXY [SQVITD] Order #: [id number] FUTURE THYROGLOBULIN AB [SQTGAB] Order #: [id number] FUTURE HGB A1C [TQYAB8H] Order #: [id number] FUTURE Prescriptions as of 06/03/2023 - estradiol 10 mcg vaginal suppository maintenance pack (IMVEXXY) Use 1 Suppository vaginally two times a week. - levothyroxine (LEVOXYL) 100 mcg tablet Take 1 tablet by mouth once daily. Take on empty stomach. For Thyroid. - tofacitinib (XELJANZ XR) 11 mg tablet, extended release - montelukast (SINGULAIR) 10 mg tablet Take 1 tablet by mouth daily at bedtime. - ondansetron orally disintegrating (ZOFRAN ODT) 4 mg disintegrating tablet Take 1 tablet by mouth every 8 hours as needed for nausea/vomiting. - liothyronine (CYTOMEL) 5 mcg tablet Take 2 tablets by mouth daily in the late afternoon. - levothyroxine (LEVOXYL) 100 mcg tablet Take 1 tablet by mouth daily before breakfast. Take on empty stomach. For Thyroid. - cyanocobalamin, vitamin B-12, (VITAMIN B12 ORAL) Take by mouth. - traMADOL 50 mg ORAL tablet Take 1 tablet by mouth. @ bedtime - methotrexate 2.5 mg ORAL tablet Take by mouth. Take 7 tablets a week - calcium carbonate/vitamin d3(CALCIUM 600 + D(3) 600 MG (1,500)-200 UNIT TAB) Take one(1) tablet twice daily. - FOLIC ACID 1 MG TAB Take one(1) tablet daily. - esomeprazole (NEXIUM) 40 mg ORAL CpDR Take one(1) capsule daily. - L-LYSINE 500 MG TAB 2 tabs daily - THERAPEUTIC MULTIVITAMIN TAB Take one(1) tablet daily. - TYLENOL ARTHRITIS 650 MG TAB two tabs twice daily - PLAQUENIL 200 MG TAB Take one tablet daily with breakfast and 1/2 tablet in the evening with dinner Problem List As Of Date 06/02/2023 Noted Resolved Chronic cholecystitis [K81.1] 02/14/2005 03/06/2015 HYPOTHYROIDISM NOS [E03.9] 07/12/2005 03/23/2015 Other malaise and fatigue [R53.81, R53.83] 07/12/2005 03/06/2015 Myalgia and myositis, unspecified [YPU8107] 07/12/2005 03/06/2015 Loss of weight [R63.4] 08/02/2005 03/06/2015 Sjogrens Syndrome [M35.00] 01/21/2007 Abnormal mammogram, unspecified [R92.8] 05/27/2013 03/06/2015 Abnormal mammogram with microcalcification [R92*06/17/2013 Hypothyroidism [E03.9] 03/23/2015 Rheumatoid arthritis involving multiple sites (*05/23/2015 GERD (gastroesophageal reflux disease) [K21.9] 07/26/2015 Family history of breast cancer [Z80.3] 01/19/2019 Rheumatoid arthritis of multiple sites with neg*06/10/2022 Lumbosacral radiculopathy at L5 [M54.17] 05/05/2023 Lumbosacral radiculopathy at S1 [M54.17] 05/05/2023 Weakness of left lower extremity [R29.898] 05/05/2023 Postmenopausal [Z78.0] 05/16/2023 Vaginal atrophy [N95.2] 05/16/2023 Encounter for screening mammogram for breast ca*05/16/2023 Encounter Status:Closed by PALMA HERNANDEZ LPN on 06/03/23 [facility] CNTHERAPYon 05-27-2023 CNTHERAPY OT/PT/Speech Visit (PTWS) -------- KHLOE FLORES ([id number]) 1970 F Date Time Provider Department 05/27/23 3:30 PM VIRIDIANA MARTÍNEZ Date Time Provider Department [place] 05/27/2023 3:30 PM [id number], MARIAH PTPORSHA [place] Reason for Visit: Physical Therapy [503] Primary Visit Diagnosis:Weakness of left lower extremity [R29.898] Other Visit Diagnoses:Lumbosacral radiculopathy at L5 [M54.17] Lumbosacral radiculopathy at S1 [M54.17] Allergies As of Date: 05/27/2023 Noted Allergy Reaction ERYTHROMYCIN 02/12/2023 11 - Vomiting FLOXIN (OFLOXACIN) 01/19/2005 5 - Intolerance GUAIFENESIN 01/19/2005 7 - Swelling Comments: lips swell MYCINETTE (CETYLPYRIDINIUM-BENZOC* 01/19/2005 5 - Intolerance SULFA (SULFONAMIDE ANTIBIOTICS) 01/19/2005 7 - Swelling Comments: face VESICARE (SOLIFENACIN SUCCINATE) 05/15/2007 7 - Swelling Comments: tingle tongue Z-PACK (AZITHROMYCIN) 03/16/2007 6 - Diarrhea 11 - Vomiting Date Reviewed: 05/16/2023 Reviewed by: Kiersten Wright Ma - Fully Assessed Prescriptions as of 05/28/2023 - estradiol 10 mcg vaginal suppository maintenance pack (IMVEXXY) Use 1 Suppository vaginally two times a week. - levothyroxine (LEVOXYL) 100 mcg tablet Take 1 tablet by mouth once daily. Take on empty stomach. For Thyroid. - tofacitinib (XELJANZ XR) 11 mg tablet, extended release - montelukast (SINGULAIR) 10 mg tablet Take 1 tablet by mouth daily at bedtime. - ondansetron orally disintegrating (ZOFRAN ODT) 4 mg disintegrating tablet Take 1 tablet by mouth every 8 hours as needed for nausea/vomiting. - liothyronine (CYTOMEL) 5 mcg tablet Take 2 tablets by mouth daily in the late afternoon. - levothyroxine (LEVOXYL) 100 mcg tablet Take 1 tablet by mouth daily before breakfast. Take on empty stomach. For Thyroid. - cyanocobalamin, vitamin B-12, (VITAMIN B12 ORAL) Take by mouth. - traMADOL 50 mg ORAL tablet Take 1 tablet by mouth. @ bedtime - methotrexate 2.5 mg ORAL tablet Take by mouth. Take 7 tablets a week - calcium carbonate/vitamin d3(CALCIUM 600 + D(3) 600 MG (1,500)-200 UNIT TAB) Take one(1) tablet twice daily. - FOLIC ACID 1 MG TAB Take one(1) tablet daily. - esomeprazole (NEXIUM) 40 mg ORAL CpDR Take one(1) capsule daily. - L-LYSINE 500 MG TAB 2 tabs daily - THERAPEUTIC MULTIVITAMIN TAB Take one(1) tablet daily. - TYLENOL ARTHRITIS 650 MG TAB two tabs twice daily - PLAQUENIL 200 MG TAB Take one tablet daily with breakfast and 1/2 tablet in the evening with dinner -------- Hand Scraper: Therapy (PT/OT/Speech/Resp) ID: [id number] 05/27/2023 3:22 PM Author: VIRIDIANA MARTÍNEZ Signed by VIRIDIANA MARTÍNEZ ACCOUNTING CLERKS SUPERVISOR on 05/27/2023 at 3:22 PM Document text: Program_ID:[id number] Access Code: [email or web address] URL: [email or web address]/ Date: 05-27-2023 Prepared By: Dayday Mortensen Program Notes Exercises - Supine 90/90 Sciatic Nerve Fortescue with Knee Flexion/Extension - 1 x daily - 7 x weekly - 2 sets - 10 reps - Supine Piriformis Stretch with Leg Straight - 1 x daily - 7 x weekly - 2 sets - 3 reps - Small Range Straight Leg Raise - 1 x daily - 7 x weekly - 2 sets - 10 reps - Long Sitting Ankle Pumps - 1 x daily - 7 x weekly - 2 sets - 10 reps - Towel Scrunches - 1 x daily - 7 x weekly - 2 sets - 10 reps - Seated Ankle Plantarflexion with Resistance - 1 x daily - 7 x weekly - 1-2 sets - 10 reps - Ankle Inversion with Resistance - 1 x daily - 7 x weekly - 1-2 sets - 10 reps - Ankle Eversion with Resistance - 1 x daily - 7 x weekly - 1-2 sets - 10 reps - Long Sitting Plantar Fascia Stretch with Towel - 1 x daily - 7 x weekly - 1 sets - 3 reps Normal [facility] [employer] BREAST LTD LTon 05-27 [facility] NextGxDX * * *Final Report* * * DATE OF EXAM: May 27 2023 2:36PM [id number] - [employer] LT / PROCEDURE REASON: Breast asymmetry in female * * * * Physician Interpretation * * * * #[id number] - [employer] LIMITED ULTRASOUND OF LEFT BREAST: 05/27/2023 HISTORY: Breast Asymmetry In Female. RESULT: No prior exams were available for comparison. Color flow and real-time ultrasound of the left breast outer aspect were performed. Flores scale images of the real-time examination were reviewed. There is a benign 0.6 cm x 0.3 cm x 0.6 cm normal lymph node in the left breast at 3 o'clock posterior depth. This normal lymph node is hypoechoic with fatty hilum. This correlates with mammography findings. IMPRESSION: BENIGN FINDING There is no sonographic evidence of malignancy. The 0.6 cm x 0.3 cm x 0.6 cm normal lymph node in the left breast is benign. Return to annual mammogram screening schedule is recommended. Wilian rivas/eder:05/27/2023 14:50:18 Experience Planning Strategist(s): Kendra Francis, [facility] Ultrasound BI-RADS: 2 Benign finding Multiple national specialty organizations have released breast cancer screening guidelines for women at average risk for developing breast cancer - guidelines that are based on both evidence and opinion, yet differ on when to start and how often to screen for breast cancer. With representation from Breast Imaging, Internal Medicine, Women's Health, Family Medicine, and Medical/Surgical Oncology, the [facility] has carefully reviewed the data and reached the following consensus: 1) All women should engage in shared decision-making with their providers to decide when to start and how often to screen; 2) All women should have the opportunity to start screening mammography at age 40; 3) For women ages 45-55, we recommend annual screening mammograms; 4) For women ages 55 and over, we support both the transition from an annual to a biennial interval if this aligns more with patient's values and preferences, or continuation with annual screening; 5) All women should discuss with their providers when to stop screening mammograms. Advertising Account Representative: Eder Transcribe Date/Time: May 27 2023 2:23P Dictated by : WILIAN NORRIS MD This examination was interpreted and the report reviewed and electronically signed by: WILIAN NORRIS MD on May 27 2023 2:50PM EST [id number] Normal [facility] THERAPY NTon 05-27-2023 THERAPY NT HNO ID: [id number] Author: VIRIDIANA MARTÍNEZ PTA Service: ? Author Type: Retail Center Receptionist Type: Therapy (PT/OT/Speech/Resp) Filed: 05/27/2023 15:22 Note Text: Program_ID:[id number] Access Code: [email or web address] URL: [email or web address]/ Date: 05-27-2023 Prepared By: Dayday Mortensen Program Notes Exercises - Supine 90/90 Sciatic Nerve Fortescue with Knee Flexion/Extension - 1 x daily - 7 x weekly - 2 sets - 10 reps - Supine Piriformis Stretch with Leg Straight - 1 x daily - 7 x weekly - 2 sets - 3 reps - Small Range Straight Leg Raise - 1 x daily - 7 x weekly - 2 sets - 10 reps - Long Sitting Ankle Pumps - 1 x daily - 7 x weekly - 2 sets - 10 reps - Towel Scrunches - 1 x daily - 7 x weekly - 2 sets - 10 reps - Seated Ankle Plantarflexion with Resistance - 1 x daily - 7 x weekly - 1-2 sets - 10 reps - Ankle Inversion with Resistance - 1 x daily - 7 x weekly - 1-2 sets - 10 reps - Ankle Eversion with Resistance - 1 x daily - 7 x weekly - 1-2 sets - 10 reps - Long Sitting Plantar Fascia Stretch with Towel - 1 x daily - 7 x weekly - 1 sets - 3 reps Normal [facility] US Breast - left limitedon 0 05-27-2023 [facility] CNCOon 05-19-2023 CNCO HNO ID: [id number] Author: COORDINATOR, MAMMOGRAPHY, ? Service: ? Author Type: Physician Type: Letter Filed: 05/19/2023 08:59 Note Text: May 19, 2023 PID: [id number] Khloe Flores [address] [place] [address] Dear Ms. Flores, Your recent breast imaging exam on 05/16/2023 showed a possible finding that requires additional imaging studies for a complete evaluation. Most such findings are probably benign (not cancer). Your mammogram demonstrates that you have dense breast tissue, which could hide abnormalities. Dense breast tissue, in and of itself, is a relatively common condition. Therefore, this information is not provided to cause undue concern; rather, it is to raise your awareness and promote discussion with your health care provider regarding the presence of dense breast tissue in addition to other risk factors. If you have a healthcare provider who ordered/prescribed your screening mammogram: Please call [phone] or [phone]: [phone] to schedule an appointment for your additional imaging (if you have not already done so). If you DO NOT have a healthcare provider (ie you did not have an order/prescription for your screening mammogram): Please call to schedule an appointment for your additional imaging (if you have not already done so). You must have an order/prescription from your physician when calling to schedule your appointment. If your order/prescription is not electronic, you must bring the hard copy with you on the day of your exam to avoid delays. Your imaging studies and reports are kept on file at [facility] as part of your permanent medical record, and are available for your continuing care. Thank you for allowing us to help in meeting your health care needs. Sincerely, Dr. Medley Interpreting Radiologist [facility] (Additional imaging) Normal [facility] 05-19-2023 CNPN Telephone (AVPRAD) -------- KHLOE FLORES ([id number]) 1970 F Date Time Provider Department 05/19/23 RADHA FLETCHER AVPRAD During your visit today, we recorded the following information about you: Radha Fletcher MD 05/19/2023 5:01 PM Signed Called and discussed MRI results with patient. No further line directed therapy needed at this time. She is to continue follow-up with neurology and is currently in physical therapy. Radha Fletcher MD, PhD Staff, Infectious Disease [facility] Office [phone] Allergies As of Date: 05/19/2023 Noted Allergy Reaction ERYTHROMYCIN 02/12/2023 11 - Vomiting FLOXIN (OFLOXACIN) 01/19/2005 5 - Intolerance GUAIFENESIN 01/19/2005 7 - Swelling Comments: lips swell MYCINETTE (CETYLPYRIDINIUM-BENZOC* 01/19/2005 5 - Intolerance SULFA (SULFONAMIDE ANTIBIOTICS) 01/19/2005 7 - Swelling Comments: face VESICARE (SOLIFENACIN SUCCINATE) 05/15/2007 7 - Swelling Comments: tingle tongue Z-PACK (AZITHROMYCIN) 03/16/2007 6 - Diarrhea 11 - Vomiting Date Reviewed: 05/16/2023 Reviewed by: Kiersten Wright Ma - Fully Assessed Prescriptions as of 05/19/2023 - estradiol 10 mcg vaginal suppository maintenance pack (IMVEXXY) Use 1 Suppository vaginally two times a week. - levothyroxine (LEVOXYL) 100 mcg tablet Take 1 tablet by mouth once daily. Take on empty stomach. For Thyroid. - tofacitinib (XELJANZ XR) 11 mg tablet, extended release - montelukast (SINGULAIR) 10 mg tablet Take 1 tablet by mouth daily at bedtime. - ondansetron orally disintegrating (ZOFRAN ODT) 4 mg disintegrating tablet Take 1 tablet by mouth every 8 hours as needed for nausea/vomiting. - liothyronine (CYTOMEL) 5 mcg tablet Take 2 tablets by mouth daily in the late afternoon. - levothyroxine (LEVOXYL) 100 mcg tablet Take 1 tablet by mouth daily before breakfast. Take on empty stomach. For Thyroid. - cyanocobalamin, vitamin B-12, (VITAMIN B12 ORAL) Take by mouth. - traMADOL 50 mg ORAL tablet Take 1 tablet by mouth. @ bedtime - methotrexate 2.5 mg ORAL tablet Take by mouth. Take 7 tablets a week - calcium carbonate/vitamin d3(CALCIUM 600 + D(3) 600 MG (1,500)-200 UNIT TAB) Take one(1) tablet twice daily. - FOLIC ACID 1 MG TAB Take one(1) tablet daily. - esomeprazole (NEXIUM) 40 mg ORAL CpDR Take one(1) capsule daily. - L-LYSINE 500 MG TAB 2 tabs daily - THERAPEUTIC MULTIVITAMIN TAB Take one(1) tablet daily. - TYLENOL ARTHRITIS 650 MG TAB two tabs twice daily - PLAQUENIL 200 MG TAB Take one tablet daily with breakfast and 1/2 tablet in the evening with dinner Problem List As Of Date 05/19/2023 Noted Resolved Chronic cholecystitis [K81.1] 02/14/2005 03/06/2015 HYPOTHYROIDISM NOS [E03.9] 07/12/2005 03/23/2015 Other malaise and fatigue [R53.81, R53.83] 07/12/2005 03/06/2015 Myalgia and myositis, unspecified [RFO2954] 07/12/2005 03/06/2015 Loss of weight [R63.4] 08/02/2005 03/06/2015 Sjogrens Syndrome [M35.00] 01/21/2007 Abnormal mammogram, unspecified [R92.8] 05/27/2013 03/06/2015 Abnormal mammogram with microcalcification [R92*06/17/2013 Hypothyroidism [E03.9] 03/23/2015 Rheumatoid arthritis involving multiple sites (*05/23/2015 GERD (gastroesophageal reflux disease) [K21.9] 07/26/2015 Family history of breast cancer [Z80.3] 01/19/2019 Rheumatoid arthritis of multiple sites with neg*06/10/2022 Lumbosacral radiculopathy at L5 [M54.17] 05/05/2023 Lumbosacral radiculopathy at S1 [M54.17] 05/05/2023 Weakness of left lower extremity [R29.898] 05/05/2023 Postmenopausal [Z78.0] 05/16/2023 Vaginal atrophy [N95.2] 05/16/2023 Encounter for screening mammogram for breast ca*05/16/2023 Encounter Status:Closed by RADHA FLETCHER on 05/19/23 [facility] CNTHERAPYon 05-19-2023 CNTHERAPY OT/PT/Speech Visit (PTWS) -------- KHLOE FLORES ([id number]) 1970 F Date Time Provider Department 05/19/23 9:30 AM VIRIDIANA MARTÍNEZ Date Time Provider Department Center 05/19/2023 9:30 AM [id number] MARTÍNEZoster [facility] Reason for Visit: Physical Therapy [503] Primary Visit Diagnosis:Weakness of left lower extremity [R29.898] Other Visit Diagnoses:Lumbosacral radiculopathy at L5 [M54.17] Lumbosacral radiculopathy at S1 [M54.17] Allergies As of Date: 05/19/2023 Noted Allergy Reaction ERYTHROMYCIN 02/12/2023 11 - Vomiting FLOXIN (OFLOXACIN) 01/19/2005 5 - Intolerance GUAIFENESIN 01/19/2005 7 - Swelling Comments: lips swell MYCINETTE (CETYLPYRIDINIUM-BENZOC* 01/19/2005 5 - Intolerance SULFA (SULFONAMIDE ANTIBIOTICS) 01/19/2005 7 - Swelling Comments: face VESICARE (SOLIFENACIN SUCCINATE) 05/15/2007 7 - Swelling Comments: tingle tongue Z-PACK (AZITHROMYCIN) 03/16/2007 6 - Diarrhea 11 - Vomiting Date Reviewed: 05/16/2023 Reviewed by: Kiersten Wright Ma - Fully Assessed Prescriptions as of 05/21/2023 - estradiol 10 mcg vaginal suppository maintenance pack (IMVEXXY) Use 1 Suppository vaginally two times a week. - levothyroxine (LEVOXYL) 100 mcg tablet Take 1 tablet by mouth once daily. Take on empty stomach. For Thyroid. - tofacitinib (XELJANZ XR) 11 mg tablet, extended release - montelukast (SINGULAIR) 10 mg tablet Take 1 tablet by mouth daily at bedtime. - ondansetron orally disintegrating (ZOFRAN ODT) 4 mg disintegrating tablet Take 1 tablet by mouth every 8 hours as needed for nausea/vomiting. - liothyronine (CYTOMEL) 5 mcg tablet Take 2 tablets by mouth daily in the late afternoon. - levothyroxine (LEVOXYL) 100 mcg tablet Take 1 tablet by mouth daily before breakfast. Take on empty stomach. For Thyroid. - cyanocobalamin, vitamin B-12, (VITAMIN B12 ORAL) Take by mouth. - traMADOL 50 mg ORAL tablet Take 1 tablet by mouth. @ bedtime - methotrexate 2.5 mg ORAL tablet Take by mouth. Take 7 tablets a week - calcium carbonate/vitamin d3(CALCIUM 600 + D(3) 600 MG (1,500)-200 UNIT TAB) Take one(1) tablet twice daily. - FOLIC ACID 1 MG TAB Take one(1) tablet daily. - esomeprazole (NEXIUM) 40 mg ORAL CpDR Take one(1) capsule daily. - L-LYSINE 500 MG TAB 2 tabs daily - THERAPEUTIC MULTIVITAMIN TAB Take one(1) tablet daily. - TYLENOL ARTHRITIS 650 MG TAB two tabs twice daily - PLAQUENIL 200 MG TAB Take one tablet daily with breakfast and 1/2 tablet in the evening with dinner -------- Hand Scraper: Therapy (PT/OT/Speech/Resp) ID: [id number] 05/19/2023 10:07 AM Author: VIRIDIANA MARTÍNEZ Signed by VIRIDIANA MARTÍNEZ ACCOUNTING CLERKS SUPERVISOR on 05/19/2023 at 10:07 AM Document text: Program_ID:[id number] Access Code: [email or web address] URL: [email or web address]/ Date: 05-19-2023 Prepared By: Dayday Mortensen Program Notes Exercises - Supine 90/90 Sciatic Nerve Fortescue with Knee Flexion/Extension - 1 x daily - 7 x weekly - 2 sets - 10 reps - Supine Piriformis Stretch with Leg Straight - 1 x daily - 7 x weekly - 2 sets - 3 reps - Small Range Straight Leg Raise - 1 x daily - 7 x weekly - 2 sets - 10 reps - Long Sitting Ankle Pumps - 1 x daily - 7 x weekly - 2 sets - 10 reps - Towel Scrunches - 1 x daily - 7 x weekly - 2 sets - 10 reps - Seated Ankle Plantarflexion with Resistance - 1 x daily - 7 x weekly - 1-2 sets - 10 reps - Ankle Inversion with Resistance - 1 x daily - 7 x weekly - 1-2 sets - 10 reps - Ankle Eversion with Resistance - 1 x daily - 7 x weekly - 1-2 sets - 10 reps Normal [facility] THERAPY NTon 05-19-2023 THERAPY NT HNO ID: [id number] Author: VIRIDIANA MARTÍNEZ PTA Service: ? Author Type: Retail Center Receptionist Type: Therapy (PT/OT/Speech/Resp) Filed: 05/19/2023 10:07 Note Text: Program_ID:[id number] Access Code: [email or web address] URL: [email or web address]/ Date: 05-19-2023 Prepared By: Dayday Mortensen Program Notes Exercises - Supine 90/90 Sciatic Nerve Fortescue with Knee Flexion/Extension - 1 x daily - 7 x weekly - 2 sets - 10 reps - Supine Piriformis Stretch with Leg Straight - 1 x daily - 7 x weekly - 2 sets - 3 reps - Small Range Straight Leg Raise - 1 x daily - 7 x weekly - 2 sets - 10 reps - Long Sitting Ankle Pumps - 1 x daily - 7 x weekly - 2 sets - 10 reps - Towel Scrunches - 1 x daily - 7 x weekly - 2 sets - 10 reps - Seated Ankle Plantarflexion with Resistance - 1 x daily - 7 x weekly - 1-2 sets - 10 reps - Ankle Inversion with Resistance - 1 x daily - 7 x weekly - 1-2 sets - 10 reps - Ankle Eversion with Resistance - 1 x daily - 7 x weekly - 1-2 sets - 10 reps Normal [facility] CNOVon 05-16-2023 CNOV Office Visit (OBGYWM ) -------- KHLOE FLORES ([id number]) 1970 F Date Time Provider Department 05/16/23 8:15 AM KENDRA MILLAN OBGYWM During your visit today, we recorded the following information about you: Blood pressure Weight Height 112/68 64 kg 1.613 m Kendra Millan APRN.CNM 05/16/2023 12:16 PM Signed Khloe is a 52 year old who presents for an annual gynecologic exam without complaints. Postmenopausal: Yes since 2015 HRT use: No. Last Pap: 02/15/2020 normal HPV: 02/14/2020 negative History of abnormal pap: No Last mammogram: 2022 normal History of abnormal mammogram: Yes Hot flashes: Yes Night sweats: Yes Vaginal dryness: Yes Exercise: 5 times a week for 30 minutes. 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 History Comments: Sexual Activity: Yes; Male; HUSBANDS VASECTOMY Contraception: Vasectomy PAST MEDICAL HISTORY Diagnosis Date Acute cholecystitis Hypothyroidism Hypothyroidism 03/23/2015 Localization-related (focal) (partial) epilepsy and epileptic syndromes with simple partial seizures, without mention of intractable epilepsy grand mal last one age 7 Lyme disease Microcalcifications of the breast 06/10/2013 Left breast Osteopenia of neck of left femur 2022 Other specified disorder of gallbladder Rheumatoid arthritis(714.0) Sjogren's syndrome (HCC) 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 Sjogrens Syndrome Unspecified hypothyroidism PAST SURGICAL HISTORY Procedure Laterality Date ARTHROSCOPY KNEE DIAGNOSTIC W/WO SYNOVIAL BX SPX Left 86,84 Arthroscopy, knee BIOPSY OF BREAST 2014 microcalcifications COLONOSCOPY EGD LAPS SURG CHOLECYSTECTOMY W/CHOLANGIOGRAPHY 02/27/2005 NOVASURE 08/01/2015 HYSTEROSCOPY, ABLATION ENDOMETRIAL NOVASURE PAST SURGICAL HISTORY OF MOLE REMOVAL ON BACK X 2- benign PAST SURGICAL HISTORY OF wisdom teeth FAMILY HISTORY Problem Relation Age of Onset Heart Father 54 MA; Cancer Mother blood- multiple mylomia other (multiple myoloma) Mother Hypertension Maternal Grandmother Diabetes Maternal Grandmother Seizures Son Resolved Seizures Daughter Resolved other (Gallbladder Cancer) Maternal Grandfather 70 other (Lung and Brain Cancer) Paternal Grandfather 70 Breast Cancer Other 40 Breast Cancer Other 60 Breast Cancer Other 70 SOCIAL HISTORY Social History Tobacco Use Smoking status: Never Smokeless tobacco: Never Vaping Use Vaping Use: Never used Substance Use Topics Alcohol use: No Drug use: No REVIEW OF SYSTEMS Abdomen: No abdominal pain, nausea, vomiting, diarrhea, or constipation. No bloating, early satiety, indigestion, or increased flatulence. Bladder: No dysuria, gross hematuria, urinary frequency, urinary urgency, or incontinence Breast: No breast lumps, nipple d/c, overlying skin changes, redness or skin retraction Allergies and current medication updated:Yes EXAM: BP 112/68 Ht 5' 3.5 (1.61m) Wt 141 lb (64.0kg) LMP 07/05/2015 BMI 24.58 kg/(m2). GENERAL: pleasant, female in no apparent distress HEENT: Normocephalic, atraumatic, mucus membranes moist, and no lesions NECK: Supple, full range of motion, no adenopathy, and thyroid normal DERMATOLOGY: Normal, without lesions, non-icteric, and non-hirsute BREAST: soft, non-tender, symmetric, no dominant mass, normal nipple-areolar complex, no lymphadenopathy, and no nipple discharge CHEST: Clear to auscultation, Normal inspiratory effort, Regular rate and rhythm, and No murmurs, clicks, rubs or gallops ABDOMEN: soft, non-tender, and no masses PELVIC: external genitalia normal, normal Bartholin's glands, urethra, Metaline's glands, no vulvar lesions, no cervical lesions, good vaginal support, physiologic discharge present, normal appearing perineal body and perianal region BIMANUAL: uterus normal size, shape and consistency, no adnexal masses, and non-tender RECTOVAGINAL: deferred. NEURO: alert and oriented x3 and alert and oriented x3,exam grossly non-focal EXTREMITIES: normal, some weakness left foot since Lyme Disease. Is receiving PT. Having MRI today ASSESSMENT/PLAN: 1. Encounter for gynecological examination (general) (routine) without abnormal findings - ICD9: V72.31, ICD10: Z01.419 (primary diagnosis) - Completed pelvic and breast exam - Encouraged monthly BSE - Follow up for annual exam in one year. - KEILY SCREENING W DOROTEO 2. Encounter for screening mammogram for breast cancer - ICD9: V76.12, ICD10: Z12.31 - Completed pelvic and breast exam - Encouraged mo (more content not included)... Normal [facility] Radha 05-16-2023 CNPN Telephone (NEURST) -------- KHLOE FLORES ([id number]) 1970 F Date Time Provider Department 05/16/23 JEROME ENG NEUR During your visit today, we recorded the following information about you: Jerome Eng MD 05/16/2023 5:47 PM Signed I spoke to Mrs. Flores about her MRI lumbar spine findings. 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 It does not appear to be Bannwarth's syndrome (no contrast enhancement). She has started PT for her painful paresthesias, numbness and weakness and will see me in follow up on 06/27/23. I am most concerned about the weakness - at least as it affects her activities (eg, standing on one leg). If her weakness improves adequately, then it might be possible to treat her pain/numbness with medication (eg gabapentin, SNRI), nerve root blocks, or both. Jerome Eng MD Allergies As of Date: 05/16/2023 Noted Allergy Reaction ERYTHROMYCIN 02/12/2023 11 - Vomiting FLOXIN (OFLOXACIN) 01/19/2005 5 - Intolerance GUAIFENESIN 01/19/2005 7 - Swelling Comments: lips swell MYCINETTE (CETYLPYRIDINIUM-BENZOC* 01/19/2005 5 - Intolerance SULFA (SULFONAMIDE ANTIBIOTICS) 01/19/2005 7 - Swelling Comments: face VESICARE (SOLIFENACIN SUCCINATE) 05/15/2007 7 - Swelling Comments: tingle tongue Z-PACK (AZITHROMYCIN) 03/16/2007 6 - Diarrhea 11 - Vomiting Date Reviewed: 05/16/2023 Reviewed by: Kiersten Wright Ma - Fully Assessed Prescriptions as of 05/16/2023 - estradiol 10 mcg vaginal suppository maintenance pack (IMVEXXY) Use 1 Suppository vaginally two times a week. - levothyroxine (LEVOXYL) 100 mcg tablet Take 1 tablet by mouth once daily. Take on empty stomach. For Thyroid. - tofacitinib (XELJANZ XR) 11 mg tablet, extended release - montelukast (SINGULAIR) 10 mg tablet Take 1 tablet by mouth daily at bedtime. - ondansetron orally disintegrating (ZOFRAN ODT) 4 mg disintegrating tablet Take 1 tablet by mouth every 8 hours as needed for nausea/vomiting. - liothyronine (CYTOMEL) 5 mcg tablet Take 2 tablets by mouth daily in the late afternoon. - levothyroxine (LEVOXYL) 100 mcg tablet Take 1 tablet by mouth daily before breakfast. Take on empty stomach. For Thyroid. - cyanocobalamin, vitamin B-12, (VITAMIN B12 ORAL) Take by mouth. - traMADOL 50 mg ORAL tablet Take 1 tablet by mouth. @ bedtime - methotrexate 2.5 mg ORAL tablet Take by mouth. Take 7 tablets a week - calcium carbonate/vitamin d3(CALCIUM 600 + D(3) 600 MG (1,500)-200 UNIT TAB) Take one(1) tablet twice daily. - FOLIC ACID 1 MG TAB Take one(1) tablet daily. - esomeprazole (NEXIUM) 40 mg ORAL CpDR Take one(1) capsule daily. - L-LYSINE 500 MG TAB 2 tabs daily - THERAPEUTIC MULTIVITAMIN TAB Take one(1) tablet daily. - TYLENOL ARTHRITIS 650 MG TAB two tabs twice daily - PLAQUENIL 200 MG TAB Take one tablet daily with breakfast and 1/2 tablet in the evening with dinner Problem List As Of Date 05/16/2023 Noted Resolved Chronic cholecystitis [K81.1] 02/14/2005 03/06/2015 HYPOTHYROIDISM NOS [E03.9] 07/12/2005 03/23/2015 Other malaise and fatigue [R53.81, R53.83] 07/12/2005 03/06/2015 Myalgia and myositis, unspecified [PRK5507] 07/12/2005 03/06/2015 Loss of weight [R63.4] 08/02/2005 03/06/2015 Sjogrens Syndrome [M35.00] 01/21/2007 Abnormal mammogram, unspecified [R92.8] 05/27/2013 03/06/2015 Abnormal mammogram with microcalcification [R92*06/17/2013 Hypothyroidism [E03.9] 03/23/2015 Rheumatoid arthritis involving multiple sites (*05/23/2015 GERD (gastroesophageal reflux disease) [K21.9] 07/26/2015 Family history of breast cancer [Z80.3] 01/19/2019 Rheumatoid arthritis of multiple sites with neg*06/10/2022 Lumbosacral radiculopathy at L5 [M54.17] 05/05/2023 Lumbosacral radiculopathy at S1 [M54.17] 05/05/2023 Weakness of left lower extremity [R29.898] 05/05/2023 Postmenopausal [Z78.0] 05/16/2023 Vaginal atrophy [N95.2] 05/16/2023 Encounter for screening mammogram for breast ca*05/16/2023 Encounter Status:Closed by JEROME ENG on 05/16/23 Normal [facility] SCREENING W TOMOon 05-16 [facility] SCREENING W DOROTEO * * *Final Report* * * DATE OF EXAM: May 16 2023 9:55AM WRW [id number] - [facility] SCREENING W DOROTEO / PROCEDURE REASON: Encounter for screening mammogram for malignant neoplasm of breast * * * * Physician Interpretation * * * * RESULT: #[id number] - [facility] SCREENING W DOROTEO BILATERAL DIGITAL SCREENING MAMMOGRAM TOMOSYNTHESIS WITH CAD: 05/16/2023 HISTORY: Encounter For Screening Mammogram For Malignant Neoplasm Of Breast / Screening Mammogram-Patient reports NO symptoms. /priors available for comparison. RESULT: TECHNIQUE: The study was acquired using full field digital technology and interpreted from soft copy. Digital Breast Tomosynthesis (DBT) images were obtained and used to assist in the interpretation of this examination. Current study was also evaluated with a Computer Aided Detection (CAD). Comparison is made to exams dated: 05/16/2022 mammogram, 12/04/2021 mammogram, 05/08/2021 mammogram, 03/26/2021 mammogram, 09/27/2020 mammogram, and 02/15/2020 mammogram - [facility]. The breasts are heterogeneously dense, which may obscure small masses. There is an asymmetry in the left breast outer region seen on the craniocaudal view only. No other significant masses, calcifications, or other findings are seen in either breast. IMPRESSION: INCOMPLETE: NEEDS ADDITIONAL IMAGING EVALUATION The asymmetry in the left breast is indeterminate. An ultrasound is recommended. Kendall Medley M.D. fa/eder:05/19/2023 08:59:23 Experience Planning Strategist(s): Carmelina Calvin [facility] letter sent: Additional Imaging Needed Mammogram BI-RADS: 0 Incomplete: needs additional imaging evaluation If this report indicates you need additional imaging, and it has NOT yet been performed, please call , to schedule. We sincerely thank you for choosing the [facility] for your breast imaging needs. Multiple national specialty organizations have released breast cancer screening guidelines for women at average risk for developing breast cancer - guidelines that are based on both evidence and opinion, yet differ on when to start and how often to screen for breast cancer. With representation from Breast Imaging, Internal Medicine, Women's Health, Family Medicine, and Medical/Surgical Oncology, the [facility] has carefully reviewed the data and reached the following consensus: 1) All women should engage in shared decision-making with their providers to decide when to start and how often to screen; 2) All women should have the opportunity to start screening mammography at age 40; 3) For women ages 45-55, we recommend annual screening mammograms; 4) For women ages 55 and over, we support both the transition from an annual to a biennial interval if this aligns more with patient's values and preferences, or continuation with annual screening; 5) All women should discuss with their providers when to stop screening mammograms. Advertising Account Representative: Eder Transcribe Date/Time: May 16 2023 9:12A Dictated by: KENDALL MEDLEY MD This examination was interpreted and the report reviewed and electronically signed by: KENDALL MEDLEY MD on May 19 2023 8:59AM EST [id number] Normal [facility] MR Lumbar spine WO and W con trast Veronica 05-16-2023 [facility] MRI LUMBAR SPINE WO/W IVCONo n 05-16-2023 MRI LUMBAR SPINE WO/W IVCON * * *Final Report* * * DATE OF EXAM: May 16 2023 10:58AM WRM [id number] - MRI LUMBAR SPINE WO/W IVCON / PROCEDURE REASON: multiple diagnoses * * * * Physician Interpretation * * * * EXAMINATION: MRI LUMBAR SPINE WO/W IVCON CLINICAL HISTORY: Lyme disease Left leg numbness Lumbosacral radiculopathy at L5 Lumbosacral radiculopathy at S1 TECHNIQUE: Routine lumbosacral spine MR protocol without and with intravenous gadolinium. MQ: [id number] COMPARISON: None. RESULT: Counting reference: Lumbosacral junction. For the purposes of this report, L4-5 is considered the level of the iliac crest and assume there are 5 lumbar-type vertebrae. Anatomic variant: None. Localizer images: No significant findings. Alignment: There is mild grade 1 anterolisthesis of L3 on L4. There is disc desiccation at L3-4, L4-5 and L5-S1. Bone marrow signal/fracture: No evidence of pathologic marrow infiltration. No evidence of prior fracture. Conus: The conus is within normal limits of signal intensity and morphology. The conus medullaris terminates at T12-L1. There is no evidence of abnormal enhancement along the cauda equina nerve roots. Paraspinal soft tissues: Paraspinal soft tissues are within normal limits. Enhancement: There is no evidence of abnormal enhancement in the lumbar spine. Lower thoracic spine: Visualized lower thoracic canal and foramina are patent. L1-L2: Canal and foramina are patent. L2-L3: Canal and foramina are patent L3-L4: There is moderate bilateral facet arthropathy, diffuse disc bulge and ligamentum flavum thickening resulting in moderate to severe spinal canal stenosis and moderate bilateral neural foraminal narrowing. L4-L5: There is mild bilateral facet arthropathy, diffuse disc bulge and ligamentum flavum thickening resulting in mild spinal canal stenosis mild left and minimal right neural foramina. L5-S1: There is mild bilateral facet arthropathy and diffuse disc bulge resulting in effacement of the ventral thecal sac and impingement of bilateral S1 descending nerve roots mild to moderate right neural foramina. There is no spinal canal stenosis there is Is no neural left foraminal narrowing. Sacrum and iliac wings: The visualized sacrum and iliac wings are within normal limits. IMPRESSION: No conus or cauda equina nerve root enhancement. Multilevel degenerative changes lumbar spine, most pronounced at L3-4 with minimal grade 1 anterolisthesis, moderate to severe spinal canal stenosis and moderate bilateral neural foraminal narrowing. Anatomic Lumbar Variant: None. L4-5 is considered the level of the iliac crest and assume there are 5 lumbar-type vertebrae. Advertising Account Representative: [facility] Transcribe Date/Time: May 16 2023 12:17P Dictated by : ANDI DAVIS MD This examination was interpreted and the report reviewed and electronically signed by: ANDI DAVIS MD on May 16 2023 12:34PM EST [id number] Normal [facility] CNTHERAPYon 05-05-2023 CNTHERAPY OT/PT/Speech Visit (PTWS) -------- KHLOE FLORES ([id number]) 1970 F Date Time Provider Department 05/05/23 4:30 PM DAYDAY SAGE PTPORSHA Date Time Provider Department Center 05/05/2023 4:30 PM [id number], MCKENA PTPORSHA [place] Reason for Visit: PT Eval [747] Patient Education [91] Primary Visit Diagnosis:Weakness of left lower extremity [R29.898] Other Visit Diagnoses:Lumbosacral radiculopathy at L5 [M54.17] Lumbosacral radiculopathy at S1 [M54.17] Allergies As of Date: 05/05/2023 Noted Allergy Reaction ERYTHROMYCIN 02/12/2023 11 - Vomiting FLOXIN (OFLOXACIN) 01/19/2005 5 - Intolerance GUAIFENESIN 01/19/2005 7 - Swelling Comments: lips swell MYCINETTE (CETYLPYRIDINIUM-BENZOC* 01/19/2005 5 - Intolerance SULFA (SULFONAMIDE ANTIBIOTICS) 01/19/2005 7 - Swelling Comments: face VESICARE (SOLIFENACIN SUCCINATE) 05/15/2007 7 - Swelling Comments: tingle tongue Z-PACK (AZITHROMYCIN) 03/16/2007 6 - Diarrhea 11 - Vomiting Date Reviewed: 04/28/2023 Reviewed by: Ashwini Lee MA - Fully Assessed Prescriptions as of 05/05/2023 - tofacitinib (XELJANZ XR) 11 mg tablet, extended release - montelukast (SINGULAIR) 10 mg tablet Take 1 tablet by mouth daily at bedtime. - ondansetron orally disintegrating (ZOFRAN ODT) 4 mg disintegrating tablet Take 1 tablet by mouth every 8 hours as needed for nausea/vomiting. - liothyronine (CYTOMEL) 5 mcg tablet Take 2 tablets by mouth daily in the late afternoon. - levothyroxine (LEVOXYL) 100 mcg tablet Take 1 tablet by mouth once daily. Take on empty stomach. For Thyroid. - levothyroxine (LEVOXYL) 100 mcg tablet Take 1 tablet by mouth daily before breakfast. Take on empty stomach. For Thyroid. - estradiol 10 mcg vaginal suppository maintenance pack (IMVEXXY) Use 1 Suppository vaginally two times a week. - cyanocobalamin, vitamin B-12, (VITAMIN B12 ORAL) Take by mouth. - traMADOL 50 mg ORAL tablet Take 1 tablet by mouth. @ bedtime - methotrexate 2.5 mg ORAL tablet Take by mouth. Take 7 tablets a week - calcium carbonate/vitamin d3(CALCIUM 600 + D(3) 600 MG (1,500)-200 UNIT TAB) Take one(1) tablet twice daily. - FOLIC ACID 1 MG TAB Take one(1) tablet daily. - esomeprazole (NEXIUM) 40 mg ORAL CpDR Take one(1) capsule daily. - L-LYSINE 500 MG TAB 2 tabs daily - THERAPEUTIC MULTIVITAMIN TAB Take one(1) tablet daily. - TYLENOL ARTHRITIS 650 MG TAB two tabs twice daily - PLAQUENIL 200 MG TAB Take one tablet daily with breakfast and 1/2 tablet in the evening with dinner -------- Hand Scraper: Therapy (PT/OT/Speech/Resp) ID: [id number] 05/05/2023 5:15 PM Author: DAYDAY SAGE Signed by DAYDYA SAGE PT, DPT on 05/05/2023 at 5:15 PM Document text: Program_ID:[id number] Access Code: [email or web address] URL: [email or web address] Date: 05-05-2023 Prepared By: Dayday Mortensen Program Notes Exercises - Supine 90/90 Sciatic Nerve Fortescue with Knee Flexion/Extension - 1 x daily - 7 x weekly - 2 sets - 10 reps - Supine Piriformis Stretch with Leg Straight - 1 x daily - 7 x weekly - 2 sets - 3 reps - Small Range Straight Leg Raise - 1 x daily - 7 x weekly - 2 sets - 10 reps - Long Sitting Ankle Pumps - 1 x daily - 7 x weekly - 2 sets - 10 reps - Towel Scrunches - 1 x daily - 7 x weekly - 2 sets - 10 reps Normal [facility] THERAPY NTon 05-05-2023 THERAPY NT HNO ID: [id number] Author: DAYDAY SAGE PT, DPT Service: ? Author Type: Physical Therapist Type: Therapy (PT/OT/Speech/Resp) Filed: 05/05/2023 17:15 Note Text: Program_ID:[id number] Access Code: [email or web address] URL: [email or web address] Date: 05-05-2023 Prepared By: Dayday Mortensen Program Notes Exercises - Supine 90/90 Sciatic Nerve Fortescue with Knee Flexion/Extension - 1 x daily - 7 x weekly - 2 sets - 10 reps - Supine Piriformis Stretch with Leg Straight - 1 x daily - 7 x weekly - 2 sets - 3 reps - Small Range Straight Leg Raise - 1 x daily - 7 x weekly - 2 sets - 10 reps - Long Sitting Ankle Pumps - 1 x daily - 7 x weekly - 2 sets - 10 reps - Towel Scrunches - 1 x daily - 7 x weekly - 2 sets - 10 reps Normal [facility] Radhames 04-28-2023 CNOV Office Visit (NEURST ) -------- KHLOE FLORES ([id number]) 1970 F Date Time Provider Department 04/28/23 10:30 AM JEROME ENG During your visit today, we recorded the following information about you: Pulse Blood pressure Weight Height 79/minute 139/92 63 kg 1.6 m Jerome Eng MD 04/28/2023 12:16 PM Signed 04/21/2023 PROMIS Global Health Physical Health Summary Physical health: Very good Everyday physical activity, ability: Mostly Fatigue: Mild Pain level: 3 General health: Very good Social activities/roles, ability: Excellent Physical Health T-Score (Very Good) Physical Health Percentile PROMIS Global Health Mental Health Summary Quality of life: Very good Mental health (mood,thinking): Excellent Social satisfaction: Excellent Emotional problems (anxious,depressed): Never Mental Health T-Score (Excellent) Mental Health Percentile PROMIS Physical Function T-Score 33(Moderate Dysfunction) PROMIS Physical Function Percentile 4 Percentiles provide an indication of how a patient's score ranks in relation to the [place] general population. > 31st percentile is within normal limits or better *< 31st percentile is at least ? SD worse than population, which may be clinically relevant < 16th percentile is at least 1 SD worse than population and warrants attention 04/21/2023 Sleep Apnea Probability Snores loudly: No Tired, fatigued or sleepy in daytime: No Stops breathing or choking/gasping during sleep: No High blood pressure: No Sleep Apnea Probability Score: 9 (Sleep study not recommended) Jerome Eng MD 04/28/2023 12:16 PM Signed Office Visit 11:23 AM - 12:15 PM Parenthetic [comments] and tinted emphasis mine. Consultation is requested for an opinion regarding the evaluation and treatment of Khloe Flores. My final impression and recommendations will be communicated back to the referring physician by way of the shared medical record or letter via [place] mail. Khloe Flores is referred by infectious diseases Dr. Radha Fletcher, 03/28/23, for left leg numbness. He documented: States rash started on the left hip initially. Also noted increased fatigue, nausea, increased pain in the hip, tingling/numbness in her toes of the left foot. On 02/27/23 saw ortho spine who thought she had bursitis of her hip... Early disseminated lyme --- Patient presenting with a hx of rash associated with fevers, fatigue, left hip pain, and paraesthesias of the left foot with initial symptoms in Nov 2022 as per HPI above --- [place]ed areas [place] her house and hikes there often --- Two pets at home that live outdoors but have noted ticks on her pet previously --- There was no witnessed tick bit[e] but lyme testing at [facility] on 02/27/23 were positive (2 IgM and 5 IgG bands positive) --- She was started on a 30 day course of doxycycline on 03/29/23, fevers, rash, fatigue resolved on doxy --- Based on the positive lyme test, spreading rash, fatigue, and joint symptoms, most consistent with disseminated lyme for which 30 days of doxycycline is appropriate --- There are no symptoms to suggest lyme carditis or meningitis --- Given the left leg paraesthesias, and possible neuropathy, possibly related to the lyme (radiculopathy?), I will refer to to neurology for neuromuscular evaluation --- Based on the overall clinical picture doxycycline would be appropriate treatment and as such I recommend she complete the course of doxy as planned --- Will also obtain a CBC with diff and CMP to assess for signs of other tick borne illness, though I think less likely based on her improvement with doxy --- Further discussed using tick preventative measure such as long pants and closed shoes when hiking, pet preventative treatment, and deet containing bug spray applied every couple hours.' ====== Problem List includes epilepsy (last grand mal seizure age 7); and Sjogren's syndrome / seronegative RA / inflammatory myopathy. Medication regimen reviewed. ====== Vitamin B12 was ample on 01/06/23. TSH has been normal (15 determinations spanning 06/26/12 - 04/08/22. ====== In re: Bannwarth's syndrome, Per UpToDate: Lyme radiculoneuritis is reported in 3 percent of [place] Centers for Disease Control and Prevention (CDC)-verified cases of Lyme disease [3]. Although this typically presents fairly early (within weeks to a few months) in infection, there may be a several month delay. In [place], a painful radiculoneuritis appears to be a more common manifestation of nervous system Lyme [32], although this may reflect differences in recognition of the syndrome rather than a true difference in frequency. The term Ehoco-Tenjvjvu-Hnwdbygh h syndrome (or Bannwarth syndrome ) has been applied to the constellation o (more content not included)... Normal [facility] HISTORY PHYSICALon HISTORY PHYSICAL HNO ID: [id number] Author: JEROME ENG MD Service: ? Author Type: Physician Type: H&P Filed: 04/27/2023 16:54 Note Text: Office Visit Parenthetic [comments] and tinted emphasis mine. Consultation is requested for an opinion regarding the evaluation and treatment of Khloe Flores. My final impression and recommendations will be communicated back to the referring physician by way of the shared medical record or letter via [place] mail. Khloe Flores is referred by infectious diseases Dr. Radha Fletcher, 03/28/23, for left leg numbness. He documented: States rash started on the left hip initially. Also noted increased fatigue, nausea, increased pain in the hip, tingling/numbness in her toes of the left foot. On 02/27/23 saw ortho spine who thought she had bursitis of her hip... Early disseminated lyme --- Patient presenting with a hx of rash associated with fevers, fatigue, left hip pain, and paraesthesias of the left foot with initial symptoms in Nov 2022 as per HPI above --- She [place] acres [place] land with wooded areas behind her house and hikes there often --- Two pets at home that live outdoors but have noted ticks on her pet previously --- There was no witnessed tick bit[e] but lyme testing at [facility] on 02/27/23 were positive (2 IgM and 5 IgG bands positive) --- She was started on a 30 day course of doxycycline on 03/29/23, fevers, rash, fatigue resolved on doxy --- Based on the positive lyme test, spreading rash, fatigue, and joint symptoms, most consistent with disseminated lyme for which 30 days of doxycycline is appropriate --- There are no symptoms to suggest lyme carditis or meningitis --- Given the left leg paraesthesias, and possible neuropathy, possibly related to the lyme (radiculopathy?), I will refer to to neurology for neuromuscular evaluation --- Based on the overall clinical picture doxycycline would be appropriate treatment and as such I recommend she complete the course of doxy as planned --- Will also obtain a CBC with diff and CMP to assess for signs of other tick borne illness, though I think less likely based on her improvement with doxy --- Further discussed using tick preventative measure such as long pants and closed shoes when hiking, pet preventative treatment, and deet containing bug spray applied every couple hours.' ====== Problem List includes epilepsy (last grand mal seizure age 7); and Sjogren's syndrome / seronegative RA / inflammatory myopathy. Medication regimen reviewed. ====== Vitamin B12 was ample on 01/06/23. TSH has been normal (15 determinations spanning 06/26/12 - 04/08/22. ====== In re: Bannwarth's syndrome, Per UpToDate: Lyme radiculoneuritis is reported in 3 percent of [place] Centers for Disease Control and Prevention (CDC)-verified cases of Lyme disease [3]. Although this typically presents fairly early (within weeks to a few months) in infection, there may be a several month delay. In [place], a painful radiculoneuritis appears to be a more common manifestation of nervous system Lyme [32], although this may reflect differences in recognition of the syndrome rather than a true difference in frequency. The term Sklvm-Omplhcgz-Jbsnzudr h syndrome (or Bannwarth syndrome ) has been applied to the constellation of painful radiculoneuritis (the hallmark of the syndrome) with variable motor weakness, sometimes accompanied by facial nerve palsy and a cerebrospinal fluid (CSF) pleocytosis [33-35]. Clinical manifestations -- Patients typically present with radicular pain in one or several dermatomes, accompanied by corresponding sensory deficits, motor weakness, and/or reflex changes. This syndrome is described in detail separately. (See Polyradiculopathy: Spinal stenosis, infectious, carcinomatous, and inflammatory nerve root syndromes , section on 'Clinical presentation'.) Older literature had suggested that involvement occurred in dermatomes related to the site of the tick bite [36,37], although a thorough subsequent study called this into doubt [19,33]; the issue has not been addressed systematically in the [place]. Evaluation and diagnosis -- The diagnostic evaluation begins with neurologic localization. Nerve conduction studies and electromyography are not required but are helpful to confirm the presence of a polyradiculopathy in patients in whom the clinical examination is ambiguous. (See Polyradiculopathy: Spinal stenosis, infectious, carcinomatous, and inflammatory nerve root syndromes , section on 'Electrodiagnostic studies'.) In a patient with polyradicular signs and symptoms, Lyme should be suspected in endemic areas when the patient presents in the late spring through pk months and does not have an apparent mechanical precipitant to their symptoms. Such patients should undergo serologic testing for Lyme, which is highly sensitive and specific for (more content not included)... Normal [facility] HISTORY PHYSICAL HNO ID: [id number] Author: JEROME ENG MD Service: ? Author Type: Physician Type: H&P Filed: 04/28/2023 12:16 Note Text: Office Visit 11:23 AM - 12:15 PM Parenthetic [comments] and tinted emphasis mine. Consultation is requested for an opinion regarding the evaluation and treatment of Khloe Flores. My final impression and recommendations will be communicated back to the referring physician by way of the shared medical record or letter via [place] mail. Khloe Flores is referred by infectious diseases Dr. Radha Fletcher, 03/28/23, for left leg numbness. He documented: States rash started on the left hip initially. Also noted increased fatigue, nausea, increased pain in the hip, tingling/numbness in her toes of the left foot. On 02/27/23 saw ortho spine who thought she had bursitis of her hip... Early disseminated lyme --- Patient presenting with a hx of rash associated with fevers, fatigue, left hip pain, and paraesthesias of the left foot with initial symptoms in Nov 2022 as per HPI above --- She lives on many acres of land with wooded areas behind her house and hikes there often --- Two pets at home that live outdoors but have noted ticks on her pet previously --- There was no witnessed tick bit[e] but lyme testing at [facility] on 02/27/23 were positive (2 IgM and 5 IgG bands positive) --- She was started on a 30 day course of doxycycline on 03/29/23, fevers, rash, fatigue resolved on doxy --- Based on the positive lyme test, spreading rash, fatigue, and joint symptoms, most consistent with disseminated lyme for which 30 days of doxycycline is appropriate --- There are no symptoms to suggest lyme carditis or meningitis --- Given the left leg paraesthesias, and possible neuropathy, possibly related to the lyme (radiculopathy?), I will refer to to neurology for neuromuscular evaluation --- Based on the overall clinical picture doxycycline would be appropriate treatment and as such I recommend she complete the course of doxy as planned --- Will also obtain a CBC with diff and CMP to assess for signs of other tick borne illness, though I think less likely based on her improvement with doxy --- Further discussed using tick preventative measure such as long pants and closed shoes when hiking, pet preventative treatment, and deet containing bug spray applied every couple hours.' ====== Problem List includes epilepsy (last grand mal seizure age 7); and Sjogren's syndrome / seronegative RA / inflammatory myopathy. Medication regimen reviewed. ====== Vitamin B12 was ample on 01/06/23. TSH has been normal (15 determinations spanning 06/26/12 - 04/08/22. ====== In re: Bannwarth's syndrome, Per UpToDate: Lyme radiculoneuritis is reported in 3 percent of [place] Centers for Disease Control and Prevention (CDC)-verified cases of Lyme disease [3]. Although this typically presents fairly early (within weeks to a few months) in infection, there may be a several month delay. In [place], a painful radiculoneuritis appears to be a more common manifestation of nervous system Lyme [32], although this may reflect differences in recognition of the syndrome rather than a true difference in frequency. The term Xkjgr-Qnrxjsdy-Ejxsypgg h syndrome (or Bannwarth syndrome ) has been applied to the constellation of painful radiculoneuritis (the hallmark of the syndrome) with variable motor weakness, sometimes accompanied by facial nerve palsy and a cerebrospinal fluid (CSF) pleocytosis [33-35]. Clinical manifestations -- Patients typically present with radicular pain in one or several dermatomes, accompanied by corresponding sensory deficits, motor weakness, and/or reflex changes. This syndrome is described in detail separately. (See Polyradiculopathy: Spinal stenosis, infectious, carcinomatous, and inflammatory nerve root syndromes , section on 'Clinical presentation'.) Older literature had suggested that involvement occurred in dermatomes related to the site of the tick bite [36,37], although a thorough subsequent study called this into doubt [19,33]; the issue has not been addressed systematically in the [place]. Evaluation and diagnosis -- The diagnostic evaluation begins with neurologic localization. Nerve conduction studies and electromyography are not required but are helpful to confirm the presence of a polyradiculopathy in patients in whom the clinical examination is ambiguous. (See Polyradiculopathy: Spinal stenosis, infectious, carcinomatous, and inflammatory nerve root syndromes , section on 'Electrodiagnostic studies'.) In a patient with polyradicular signs and symptoms, Lyme should be suspected in endemic areas when the patient presents in the late spring through pk months and does not have an apparent mechanical precipitant to their symptoms. Such patients should undergo serologic testing for Lyme, which is highly sensitive (more content not included)... Normal [facility] CNPNon 04-17-2023 CNPN Telephone (OBGYWM) -------- KHLOE FLORES ([id number]) 1970 F Date Time Provider Department 04/17/23 KENDRA MILLAN During your visit today, we recorded the following information about you: Lucero Fernandez LPN 04/17/2023 11:00 AM Signed Patient called requesting appointment for screening mammogram. Has yearly exam 05/16/2023 Arlen Cedillo APRN.CNM 04/17/2023 3:11 PM Signed Orders signed. Arlen Cedillo APRN.CNM Allergies As of Date: 04/17/2023 Noted Allergy Reaction ERYTHROMYCIN 02/12/2023 11 - Vomiting FLOXIN (OFLOXACIN) 01/19/2005 5 - Intolerance GUAIFENESIN 01/19/2005 7 - Swelling Comments: lips swell MYCINETTE (CETYLPYRIDINIUM-BENZOC* 01/19/2005 5 - Intolerance SULFA (SULFONAMIDE ANTIBIOTICS) 01/19/2005 7 - Swelling Comments: face VESICARE (SOLIFENACIN SUCCINATE) 05/15/2007 7 - Swelling Comments: tingle tongue Z-PACK (AZITHROMYCIN) 03/16/2007 6 - Diarrhea 11 - Vomiting Date Reviewed: 03/28/2023 Reviewed by: Felicia Vicente Ma - Fully Assessed Reason for Visit: Orders [681] Primary Visit Diagnosis:Encounter for screening mammogram for malignant neoplasm of breast [Z12.31] Order(s):KEILY SCREENING W DOROTEO [[id number]] Order #: [id number] FUTURE Prescriptions as of 04/17/2023 - tofacitinib (XELJANZ XR) 11 mg tablet, extended release - montelukast (SINGULAIR) 10 mg tablet Take 1 tablet by mouth daily at bedtime. - ondansetron orally disintegrating (ZOFRAN ODT) 4 mg disintegrating tablet Take 1 tablet by mouth every 8 hours as needed for nausea/vomiting. - liothyronine (CYTOMEL) 5 mcg tablet Take 2 tablets by mouth daily in the late afternoon. - levothyroxine (LEVOXYL) 100 mcg tablet Take 1 tablet by mouth once daily. Take on empty stomach. For Thyroid. - levothyroxine (LEVOXYL) 100 mcg tablet Take 1 tablet by mouth daily before breakfast. Take on empty stomach. For Thyroid. - estradiol 10 mcg vaginal suppository maintenance pack (IMVEXXY) Use 1 Suppository vaginally two times a week. - cyanocobalamin, vitamin B-12, (VITAMIN B12 ORAL) Take by mouth. - traMADOL 50 mg ORAL tablet Take 1 tablet by mouth. @ bedtime - methotrexate 2.5 mg ORAL tablet Take by mouth. Take 7 tablets a week - calcium carbonate/vitamin d3(CALCIUM 600 + D(3) 600 MG (1,500)-200 UNIT TAB) Take one(1) tablet twice daily. - FOLIC ACID 1 MG TAB Take one(1) tablet daily. - esomeprazole (NEXIUM) 40 mg ORAL CpDR Take one(1) capsule daily. - L-LYSINE 500 MG TAB 2 tabs daily - THERAPEUTIC MULTIVITAMIN TAB Take one(1) tablet daily. - TYLENOL ARTHRITIS 650 MG TAB two tabs twice daily - PLAQUENIL 200 MG TAB Take one tablet daily with breakfast and 1/2 tablet in the evening with dinner Problem List As Of Date 04/17/2023 Noted Resolved Chronic cholecystitis [K81.1] 02/14/2005 03/06/2015 HYPOTHYROIDISM NOS [E03.9] 07/12/2005 03/23/2015 Other malaise and fatigue [R53.81, R53.83] 07/12/2005 03/06/2015 Myalgia and myositis, unspecified [JVY8637] 07/12/2005 03/06/2015 Loss of weight [R63.4] 08/02/2005 03/06/2015 Sjogrens Syndrome [M35.00] 01/21/2007 Abnormal mammogram, unspecified [R92.8] 05/27/2013 03/06/2015 Abnormal mammogram with microcalcification [R92*06/17/2013 Hypothyroidism [E03.9] 03/23/2015 Rheumatoid arthritis involving multiple sites (*05/23/2015 GERD (gastroesophageal reflux disease) [K21.9] 07/26/2015 Family history of breast cancer [Z80.3] 01/19/2019 Rheumatoid arthritis of multiple sites with neg*06/10/2022 Encounter Status:Closed by ARLEN CEDILLO on 04/17/23 Normal [facility] CBC W Auto Differential pane l (Bld)on 03-28-2023 Basophils (Bld) [#/Vol] 0.04 10*3/uL Normal <0.11 [facility] Comment on above: Order Comment: Speci men Type: BLOOD SPECIMEN Ordering Facility: [facility] Address: [address] [place] [address] Performed By: #### 5 7021-8 #### [facility] CLIA [id number] [address] [place] [address] [place] Basophils/100 WBC (Bld) 0.7 % Normal [facility] Comment on above: Order Comment: Speci men Type: BLOOD SPECIMEN Ordering Facility: [facility] Address: [address] [place] [address] Performed By: #### 5 7021-8 #### [facility] CLIA [id number] [address] [place] [address] [place] Differential cell count method Nom (Bld) Auto Normal [facility] Comment on above: Order Comment: Speci men Type: BLOOD SPECIMEN Ordering Facility: [facility] Address: [address] [place] [address] Performed By: #### 5 7021-8 #### [facility] CLIA [id number] [address] [place] [address] [place] Eosinophils (Bld) [#/Vol] 0.05 10*3/uL Normal <0.46 [facility] Comment on above: Order Comment: Speci men Type: BLOOD SPECIMEN Ordering Facility: [facility] Address: [address] [place] [address] Performed By: #### 5 7021-8 #### [facility] CLIA [id number] [address] [place] [address] [place] Eosinophils/100 WBC (Bld) 0.9 % Normal [facility] Comment on above: Order Comment: Speci men Type: BLOOD SPECIMEN Ordering Facility: [facility] Address: [address] [place] [address] Performed By: #### 5 7021-8 #### [facility] IA [id number] [address] [place] [address] [place] Erythrocyte distribution width (RBC) [Ratio] 11.9 % Normal 11.5-15.0 [facility] Comment on above: Order Comment: Speci men Type: BLOOD SPECIMEN Ordering Facility: [facility] Address: [address] [place] [address] Performed By: #### 5 7021-8 #### [facility] IA [id number] [address] [place] [address] [place] Hematocrit (Bld) [Volume fraction] 48.2 % High 36.0-46.0 [facility] Comment on above: Order Comment: Speci men Type: BLOOD SPECIMEN Ordering Facility: [facility] Address: [address] [place] [address] Performed By: #### 5 7021-8 #### [facility] IA [id number] [address] [place] [address] [place] Hemoglobin (Bld) [Mass/Vol] 16.4 g/dL High 11.5-15.5 [facility] Comment on above: Order Comment: Speci men Type: BLOOD SPECIMEN Ordering Facility: [facility] Address: [address] [place] [address] Performed By: #### 5 7021-8 #### [facility] IA [id number] [address] [place] [address] [place] Immature granulocytes (Bld) [#/Vol] 10*3/uL Normal <0.10 [facility] Comment on above: Order Comment: Speci men Type: BLOOD SPECIMEN Ordering Facility: [facility] Address: [address] [place] [address] Performed By: #### 5 7021-8 #### [facility] CLIA [id number] [address] [place] [address] [place] Immature granulocytes/100 WBC (Bld) 0.2 % Normal [facility] Comment on above: Order Comment: Speci men Type: BLOOD SPECIMEN Ordering Facility: [facility] Address: [address] [place] [address] Performed By: #### 5 7021-8 #### [facility] IA [id number] [address] [place] [address] [place] Lymphocytes (Bld) [#/Vol] 1.47 10*3/uL Normal 1.00-4.00 [facility] Comment on above: Order Comment: Speci men Type: BLOOD SPECIMEN Ordering Facility: [facility] Address: [address] [place] [address] Performed By: #### 5 7021-8 #### [facility] IA [id number] [address] [place] [address] [place] Lymphocytes/100 WBC (Bld) 25.0 % Normal [facility] Comment on above: Order Comment: Speci men Type: BLOOD SPECIMEN Ordering Facility: [facility] Address: [address] [place] [address] Performed By: #### 5 7021-8 #### [facility] IA [id number] [address] [place] [address] [place] MCH (RBC) [Entitic mass] 34.5 pg High 26.0-34.0 [facility] Comment on above: Order Comment: Speci men Type: BLOOD SPECIMEN Ordering Facility: [facility] Address: [address] [place] [address] Performed By: #### 5 7021-8 #### [facility] IA [id number] [address] [place] [address] [place] MCHC (RBC) [Mass/Vol] 34.0 g/dL Normal 30.5-36.0 [facility] Comment on above: Order Comment: Speci men Type: BLOOD SPECIMEN Ordering Facility: [facility] Address: [address] [place] [address] Performed By: #### 5 7021-8 #### [facility] IA [id number] [address] [place] [address] [place] MCV (RBC) [Entitic vol] 101.3 fL High 80.0-100.0 [facility] Comment on above: Order Comment: Speci men Type: BLOOD SPECIMEN Ordering Facility: [facility] Address: [address] [place] [address] Performed By: #### 5 7021-8 #### [facility] IA [id number] [address] [place] [address] [place] Monocytes (Bld) [#/Vol] 0.43 10*3/uL Normal <0.87 [facility] Comment on above: Order Comment: Speci men Type: BLOOD SPECIMEN Ordering Facility: [facility] Address: [address] [place] [address] Performed By: #### 5 7021-8 #### [facility] IA [id number] [address] [place] [id number] [place] Monocytes/100 WBC (Bld) 7.3 % Normal [facility] Comment on above: Order Comment: Speci men Type: BLOOD SPECIMEN Ordering Facility: [facility] Address: [address] [place] [address] Performed By: #### 5 7021-8 #### [facility] IA [id number] [address] [place] [address] [place] Neutrophils (Bld) [#/Vol] 3.87 10*3/uL Normal 1.45-7.50 [facility] Comment on above: Order Comment: Speci men Type: BLOOD SPECIMEN Ordering Facility: [facility] Address: [address] [place] [address] Performed By: #### 5 7021-8 #### [facility] IA [id number] [address] [place] [address] [place] Neutrophils/100 WBC (Bld) 65.9 % Normal [facility] Comment on above: Order Comment: Speci men Type: BLOOD SPECIMEN Ordering Facility: [facility] Address: [address] [place] [address] Performed By: #### 5 7021-8 #### [facility] CLIA [id number] [address] [place] [address] [place] Nucleated RBC (Bld) [#/Vol] 10*3/uL Normal <0.01 [facility] Comment on above: Order Comment: Speci men Type: BLOOD SPECIMEN Ordering Facility: [facility] Address: [address] [place] [address] Performed By: #### 5 7021-8 #### [facility] IA [id number] [address] [place] [address] [place] Nucleated RBC/100 WBC (Bld) [Ratio] 0.0 /100 WBC Normal [facility] Comment on above: Order Comment: Speci men Type: BLOOD SPECIMEN Ordering Facility: [facility] Address: [address] [place] [address] Performed By: #### 5 7021-8 #### [facility] IA [id number] [address] [place] [address] [place] Platelet mean volume (Bld) [Entitic vol] 9.7 fL Normal 9.0-12.7 [facility] Comment on above: Order Comment: Speci men Type: BLOOD SPECIMEN Ordering Facility: [facility] Address: [address] [place] [address] Performed By: #### 5 7021-8 #### [facility] CLIA [id number] [address] [place] [address] [place] Platelets (Bld) [#/Vol] 235 10*3/uL Normal 150-400 [facility] Comment on above: Order Comment: Speci men Type: BLOOD SPECIMEN Ordering Facility: [facility] Address: [address] [place] [address] Performed By: #### 5 7021-8 #### [facility] CLIA [id number] [address] [place] [address] [facility] [place] RBC (Bld) [#/Vol] 4.76 10*6/uL Normal 3.90-5.20 [facility] Comment on above: Order Comment: Eleazar bedolla Type: BLOOD SPECIMEN Ordering Facility: [facility] Address: [address] [place] [id number] Performed By: #### 5 7021-8 #### [facility] CLIA [id number] [address] [place] [address] [facility] WBC (Bld) [#/Vol] 5.87 10*3/uL Normal 3.70-11.00 [facility] Comment on above: Order Comment: Speci graeme Type: BLOOD SPECIMEN Ordering Facility: [facility] Address: [address] [place] [address] Performed By: #### 5 7021-8 #### [facility] CLIA [id number] [address] [place] [id number] [facility] CNOVon 03-28-2023 CNOV Office Visit (IFDREJ ) -------- KHLOE FLORES ([id number]) 1970 F Date Time Provider Department 03/28/23 10:00 AM RADHA FLETCHER IFEEliel During your visit today, we recorded the following information about you: Temperature Pulse Blood pressure Weight 98.1 degrees 75/minute 147/94 62.1 kg Height 1.6 m Radha Fletcher MD 04/03/2023 9:06 AM Signed .INFECTIOUS DISEASES CONSULT SERVICE DATE: 03/28/2023 Khloe Flores is being seen in consultation at the request of Dr. Jan George for advice and/or opinion regarding the management of lyme disease. Subjective HISTORY HPI: Khloe Flores is a 52 year old female h/o hypothyroidism, RA and sjogren's syndrome (on methotrexate, plaquenil, xeljanz), who presents for lyme disease. Patient notes that her symptoms started on Nov 30 with subjective fevers for the day. On 12/09/22 saw PCP and noted a rash on her hip and abdomen, thought to be a strep infection and was given keflex with prednisone. On 01/06/23 follow up with PCP, rash on left hip, both thighs, abdomen, and left hip pain. Received 7 more days of keflex. PCP follow up on 02/12/23 noted ongoing rash but now spreading to include her right arm and others. States rash started on the left hip initially. Also noted increased fatigue, nausea, increased pain in the hip, tingling/numbness in her toes of the left foot. On 02/27/23 saw ortho spine who thought she had bursitis of her hip. Patient states that she lives on [place] in [facility], and hikes often in the wooded paths with her dog. Never noted a tick bite or visible tick. She has an outdoor dog and cat, states that she has removed ticks from her pets before. States that she keep her pets outdoors. On assessment today she denies any fevers or chills. The rash has resolved. She denies any joint pain, heart palpitations, headaches, or neck stiffness. She continues to have some tingling and numbness in her left foot. She remains on doxycycline, of which she has been prescribed a 30 day course, with one week remaining. REVIEW OF SYSTEMS Otherwise reviewed and negative x 14 except as noted above ALLERGIES Allergen Reactions Erythromycin Vomiting Floxin [Ofloxacin] Intolerance Guaifenesin Swelling lips swell Mycinette [Cetylpyr* Intolerance Sulfa (Sulfonamide * Swelling face Vesicare [Solifenac* Swelling tingle tongue Z-Pack [Azithromyci* Diarrhea, Vomiting PAST MEDICAL HISTORY: PAST MEDICAL HISTORY Diagnosis Date Acute cholecystitis Hypothyroidism Hypothyroidism 03/23/2015 Localization-related (focal) (partial) epilepsy and epileptic syndromes with simple partial seizures, without mention of intractable epilepsy grand mal last one age 7 Microcalcifications of the breast 06/10/2013 Left breast Osteopenia of neck of left femur 2022 Other specified disorder of gallbladder Rheumatoid arthritis(714.0) Sjogren's syndrome (HCC) 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 Sjogrens Syndrome Unspecified hypothyroidism PAST SURGICAL HISTORY: PAST SURGICAL HISTORY Procedure Laterality Date ARTHROSCOPY KNEE DIAGNOSTIC W/WO SYNOVIAL BX SPX Left 86,84 Arthroscopy, knee BIOPSY OF BREAST 2014 microcalcifications COLONOSCOPY EGD LAPS SURG CHOLECYSTECTOMY W/CHOLANGIOGRAPHY 02/27/2005 NOVASURE 08/01/2015 HYSTEROSCOPY, ABLATION ENDOMETRIAL NOVASURE PAST SURGICAL HISTORY OF MOLE REMOVAL ON BACK X 2- benign PAST SURGICAL HISTORY OF wisdom teeth FAMILY HISTORY: FAMILY HISTORY Problem Relation Age of Onset Heart Father 54 MA; Cancer Mother blood- multiple mylomia other (multiple myoloma) Mother Hypertension Maternal Grandmother Diabetes Maternal Grandmother Seizures Son Resolved Seizures Daughter Resolved other (Gallbladder Cancer) Maternal Grandfather 70 other (Lung and Brain Cancer) Paternal Grandfather 70 Breast Cancer Other 40 Breast Cancer Other 60 Breast Cancer Other 70 SOCIAL HISTORY: Reviewed, no pertinent social history Social History Tobacco Use Smoking status: Never Smokeless tobacco: Never Vaping Use Vaping Use: Never used Substance Use Topics Alcohol use: No Drug use: No MEDICATIONS: Current Outpatient Medications Medication Sig montelukast (SINGULAIR) 10 mg tablet Take 1 tablet by mouth daily at bedtime. doxycycline (VIBRA-TABS) 100 mg tablet Take 1 tablet by mouth two times a day. ondansetron orally disintegrating (ZOFRAN ODT) 4 mg disintegrating tablet Take 1 tablet by mouth every 8 hours as needed for nausea/vomiting. liothyronine (CYTOMEL) 5 mcg tablet Take 2 tablets by mouth daily in the late afternoon. levothyroxine (LEVOXYL) 100 mcg tablet Take 1 tablet by mouth once daily. Take on empty stomach. For Thyroid. levothyroxine (L (more content not included)... Normal [facility] CRP [facility] 03-28-2023 CRP [Mass/Vol] mg/L Normal [facility]0.9 [facility] Comment on above: Order Comment: Speci men Type: BLOOD SPECIMEN Ordering Facility: [facility] Address: [address] [place] [address] Performed By: #### 2 4323-8, 1987-07 #### [facility] CLIA [id number] [place] [address] [place] Comprehensive metabolic 2000 panelon 03-28-2023 Albumin [Mass/Vol] 4.6 g/dL Normal 3.9-4.9 [facility] Comment on above: Order Comment: Speci men Type: BLOOD SPECIMEN Ordering Facility: [facility] Address: [address] [place] [address] Performed By: #### 2 4322-10, 1987-07 #### [facility] CLIA [id number] [address] [place] [address] [place] ALP [Catalytic activity/Vol] 68 U/L Normal 34-123 [facility] Comment on above: Order Comment: Speci men Type: BLOOD SPECIMEN Ordering Facility: [facility] Address: [address] [place] [address] Performed By: #### 2 4322-10, 1987-07 #### [facility] CLIA [id number] [address] [place] [address] [place] ALT [Catalytic activity/Vol] 27 U/L Normal 7-38 [facility] Comment on above: Order Comment: Speci men Type: BLOOD SPECIMEN Ordering Facility: [facility] Address: [address] [place] [address] Performed By: #### 2 4322-10, 1987-07 #### [facility] [place] [id number] [address] [place] [address] [place] Anion gap [Moles/Vol] 12 mmol/L Normal 9-18 [facility] Comment on above: Order Comment: Speci men Type: BLOOD SPECIMEN Ordering Facility: [facility] Address: [address] [place] [address] Performed By: #### 2 4322-10, 1987-07 #### [facility] CLIA [id number] [address] [place] [address] [place] AST [Catalytic activity/Vol] 40 U/L High 13-35 [facility] Comment on above: Order Comment: Speci men Type: BLOOD SPECIMEN Ordering Facility: [facility] Address: [address] [place] [address] Performed By: #### 2 4322-10, 1987-07 #### [facility] IA [id number] [address] [place] [address] [place] Bilirubin [Mass/Vol] 0.2 mg/dL Normal 0.2-1.3 [facility] Comment on above: Order Comment: Speci men Type: BLOOD SPECIMEN Ordering Facility: [facility] Address: [address] [place] [address] Performed By: #### 2 4322-10, 1987-07 #### [facility] IA [id number] [address] [place] [address] [place] Calcium [Mass/Vol] 10.0 mg/dL Normal 8.5-10.2 [facility] Comment on above: Order Comment: Speci men Type: BLOOD SPECIMEN Ordering Facility: [facility] Address: [address] [place] [address] Performed By: #### 2 4322-10, 1987-07 #### [facility] IA [id number] [address] [place] [address] [place] Chloride [Moles/Vol] 102 mmol/L Normal 97-105 [facility] Comment on above: Order Comment: Speci men Type: BLOOD SPECIMEN Ordering Facility: [facility] Address: [address] [place] [address] Performed By: #### 2 4322-10, 1987-07 #### [facility] IA [id number] [address] [place] [address] [place] CO2 [Moles/Vol] 27 mmol/L Normal 22-30 [facility] Comment on above: Order Comment: Speci men Type: BLOOD SPECIMEN Ordering Facility: [facility] Address: [address] [place] [address] Performed By: #### 2 4322-10, 1987-07 #### [facility] IA [id number] [address] [place] [address] [place] Creatinine [Mass/Vol] 0.71 mg/dL Normal 0.58-0.96 [facility] Comment on above: Order Comment: Speci men Type: BLOOD SPECIMEN Ordering Facility: [facility] Address: [address] [place] [address] Performed By: #### 2 43206-05, 1987-07 #### [facility] CLIA [id number] [address] [place] [address] [place] Creatinine and Glomerular filtration rate.predicted panel (S/P/Bld) 103 mL/min/1.73m??? Normal >=60 [facility] Comment on above: Order Comment: Eleazar bedolla Type: BLOOD SPECIMEN Ordering Facility: [facility] Address: [address] [place] [address] Result Comment: Kay mated Glomerular Filtration Rate (eGFR) is calculated using the 2020 CKD-EPI creatinine equation. This equation utilizes serum creatinine, sex, and age as parameters. The creatinine assay has traceable calibration to isotope dilution-mass spectrometry. Refer to KDIGO guidelines for clinical interpretation. In patients with unstable renal function, e.g. those with acute kidney injury, the eGFR may not accurately reflect actual GFR. Performed By: #### 2 43206-05, 1987-07 #### [facility] CLIA [id number] [address] [place] [address] [place] Glucose [Mass/Vol] 88 mg/dL Normal 74-99 [facility] Comment on above: Order Comment: Eleazar bedolla Type: BLOOD SPECIMEN Ordering Facility: [facility] Address: [address] [place] [address] Result Comment: The [place] [employer] (ADA) provides guidance for cutoff values for fasting glucose and random glucose. The ADA defines fasting as no caloric intake for at least 8 hours. Fasting plasma glucose results between 100 to 125 mg/dL indicate increased risk for diabetes (prediabetes). Fasting plasma glucose results greater than or equal to 126 mg/dL meet the criteria for diagnosis of diabetes. In the absence of unequivocal hyperglycemia, results should be confirmed by repeat testing. In a patient with classic symptoms of hyperglycemia or hyperglycemic crisis, random plasma glucose results greater than or equal to 200 mg/dL meet the criteria for diagnosis of diabetes. Reference: Standards of Medical Care in Diabetes 2016, [place] [employer]. Diabetes Care. 2016.39(Suppl 1). Performed By: #### 2 4322-10, 1987-07 #### [facility] IA [id number] [address] [place] [address] [place] Potassium [Moles/Vol] 4.2 mmol/L Normal 3.7-5.1 [facility] Comment on above: Order Comment: Speci men Type: BLOOD SPECIMEN Ordering Facility: [facility] Address: [address] [place] [address] Performed By: #### 2 4322-10, 1987-07 #### [facility] IA [id number] [address] [place] [address] [place] Protein [Mass/Vol] 7.4 g/dL Normal 6.3-8.0 [facility] Comment on above: Order Comment: Speci men Type: BLOOD SPECIMEN Ordering Facility: [facility] Address: [address] [place] [address] Performed By: #### 2 4322-10, 1987-07 #### [facility] IA [id number] [address] [place] [address] [place] Sodium [Moles/Vol] 141 mmol/L Normal 136-144 [facility] Comment on above: Order Comment: Speci men Type: BLOOD SPECIMEN Ordering Facility: [facility] Address: [address] [place] [address] Performed By: #### 2 4322-10, 1987-07 #### [facility] IA [id number] [address] [place] [address] [place] Urea nitrogen [Mass/Vol] 9 mg/dL Normal 7-21 [facility] Comment on above: Order Comment: Speci men Type: BLOOD SPECIMEN Ordering Facility: [facility] Address: [address] [place] [address] Performed By: #### 2 4322-10, 1987-07 #### [facility] IA [id number] [address] [place] [address] [place] CNOVon 03-05-2023 CNOV Office Visit (FAMPWS ) -------- KHLOE FLORES ([id number]) 1970 F Date Time Provider Department 03/05/23 2:00 PM JAN GEORGE FAMPWS During your visit today, we recorded the following information about you: Temperature Pulse Respiration Blood pressure 98.2 degrees 80/minute 16/minute 130/80 Weight 62.1 kg George, Jan Amador, 03/05/2023 10:14 PM Signed CC: Khloe Flores is a 52 year old female who presents to the office for follow up HPI: Previously On 11/27 started with a redness/rash on left lower abdominal area and groin, red and warm. Then on 11/30-12/01 developed a fever that lasted about 9 hours associated with chills and sweating. Doesn't now max fever reached. Then felt okay on 12/02 and then rash was slightly painful. Started using her prednisone 10 mg in AM and 5 mg in PM about 2 days ago and feels it is improving. No further fevers and no vesicles. Did have her shingles vaccine prior already Seen in follow up on 01/06 by Sendy Cantrell CNP as below Rash is back, similar to before but not as severe. Hoping to get medication before it gets worse. No fever this time. Started again 2 days ago. Difficulty sleeping because of this, but not as severe of pain as prior. Rash exactly the same as prior: redness to L groin and hip area. Warm to touch. No blistering or ulceration. No raised area. Just a diffuse redness spreading down into L thigh. Was given prednisone taper and keflex x 10 days last time. Completely resolved symptoms last time. Hx of RA. at follow up on 02/12/2023 Rash, Now rash on right arm, chest, abdomen, upper thighs- red and warm- no pain on rash areas. Pain severe, worsening, Left buttock, was left groin into lateral left hip as a deep soreness/burning sensation, worse when laying down and sitting or any light or direct tough/ direct compression. Also with jolts that are so severe they are nauseating. Last dose of prednisone 10 mg a day- yesterday. Has been taking Tramadol up to 3 times a day for pain. Taking tylenol arthritis and intermittent ibuprofen which she isn't supposed to be taking chronically and using voltaren 1% cream. Hasn't taken her Xeljanz or her Plaquenil today Has been taking Keflex with temporary benefit / relief. Now for Keflex Dec 09 course for 10 days, last dosing 01/06 for 10 days and 01/16 for 7 days. Each time she is on the antibiotic her symptoms do improve then start to reoccur usually within days of her antibiotic being completed. Very frustrated with the severity of symptoms. Her CRP and WSR were also high with labs in Dec when checked by HYDROGENATION STILL OPERATOR She was given rx for prednisone and keflex and she had CT hip and xrays and labs completed at that time which showed bursitis of greater trochanter and ischial area of her left hip. Currently She was recently seen by her Leather Case Finisher with all these symptoms. She had additional referral given to See Dr. Busby control specialist. Said had greater trochanteric bursitis and ischial spine bursitis. She was then sent to pain mgmt to have bursal injections but specialist didn't seem comfortable giving her these due to redness of her skin Had testing done by Leather Case Finisher, Dr. Wells, for potential lyme disease, Was told by Infectious disease that she has lyme disease with her blood work results POSITIVE for Lyme P93 AB1, P58 AB3, P45 AB4, P41 AB5, P39 AB6 and P18 AB10 and Lyme IgG positive with 5 of the borrelia specific bands positive. She is asking to start treatment and be referred to infectious disease specialist for opinion PAST MEDICAL HISTORY Diagnosis Date Acute cholecystitis Hypothyroidism Hypothyroidism 03/23/2015 Localization-related (focal) (partial) epilepsy and epileptic syndromes with simple partial seizures, without mention of intractable epilepsy grand mal last one age 7 Microcalcifications of the breast 06/10/2013 Left breast Osteopenia of neck of left femur 2022 Other specified disorder of gallbladder Rheumatoid arthritis(714.0) Sjogren's syndrome (HCC) 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 Sjogrens Syndrome Unspecified hypothyroidism PAST SURGICAL HISTORY Procedure Laterality Date ARTHROSCOPY KNEE DIAGNOSTIC W/WO SYNOVIAL BX SPX Left 86,84 Arthroscopy, knee BIOPSY OF BREAST 2014 microcalcifications COLONOSCOPY EGD LAPS SURG CHOLECYSTECTOMY W/CHOLANGIOGRAPHY 02/27/2005 KAREN 08/01/2015 HYSTEROSCOPY, ABLATION ENDOMETRIAL DASHAASURE PAST SURGICAL HISTORY OF MOLE REMOVAL ON BACK X 2- benign PAST SURGICAL HISTORY OF wisdom teeth Current Outpatient Medications Medication Sig doxycycline (VIBRA-TABS) 100 mg tablet Take 1 tablet by mouth two times a day. ondansetron orally disintegrating (ZOFRAN ODT) 4 mg disintegrating tablet Take 1 table (more content not included)... Normal [facility] 02-24-2023 [facility] KHLOE FLORES ([id number]) 1970 F Date Time Provider Department 02/24/23 JAN GEORGE [facility] During your visit today, we recorded the following information about you: Palma Hernandez LPN 02/24/2023 9:43 AM Signed Khloe Flores [facility] My Chart Rx Pool Dr. George, I saw Dr. Garcia (my warehouse shipping clerk) this morning. She feels this hip pain is a spine issue and has referred me to Dr. Jonathan Busby, a spine orthopedic surgeon, at [facility]. I will see him on 02/27/23 @ 9:30. I don't think I need my appointment tomorrow unless you do. When do I need to schedule to see you for my thyroid again? Please let me know. Thank you, Sendy Nina APRN.[facility] 02/24/2023 10:54 AM Signed Ok to cancel appointment for tomorrow. Please assist in this. Since thryoid labs are stable, OK to wait until physical scheduled in May to recheck. Sooner only if symptoms arise. Thank you, Sendy Cantrell APRN.[facility]ORD[facility] Alma Stark, SYSTEMS SECURITY ANALYST 02/24/2023 12:08 PM Signed Spoke with pt gave information provided. Pt voices understanding. Allergies As of Date: 02/24/2023 Noted Allergy Reaction ERYTHROMYCIN 02/12/2023 11 - Vomiting FLOXIN (OFLOXACIN) 01/19/2005 5 - Intolerance GUAIFENESIN 01/19/2005 7 - Swelling Comments: lips swell MYCINETTE (CETYLPYRIDINIUM-BENZOC* 01/19/2005 5 - Intolerance SULFA (SULFONAMIDE ANTIBIOTICS) 01/19/2005 7 - Swelling Comments: face VESICARE (SOLIFENACIN SUCCINATE) 05/15/2007 7 - Swelling Comments: tingle tongue Z-PACK (AZITHROMYCIN) 03/16/2007 6 - Diarrhea 11 - Vomiting Date Reviewed: 02/12/2023 Reviewed by: Jan George DO - Fully Assessed Reason for Visit: Back Pain [12] Prescriptions as of 02/24/2023 - liothyronine (CYTOMEL) 5 mcg tablet Take 2 tablets by mouth daily in the late afternoon. - levothyroxine (LEVOXYL) 100 mcg tablet Take 1 tablet by mouth once daily. Take on empty stomach. For Thyroid. - levothyroxine (LEVOXYL) 100 mcg tablet Take 1 tablet by mouth daily before breakfast. Take on empty stomach. For Thyroid. - montelukast (SINGULAIR) 10 mg tablet Take 1 tablet by mouth daily at bedtime. - estradiol 10 mcg vaginal suppository maintenance pack (IMVEXXY) Use 1 Suppository vaginally two times a week. - cyanocobalamin, vitamin B-12, (VITAMIN B12 ORAL) Take by mouth. - traMADOL 50 mg ORAL tablet Take 1 tablet by mouth. @ bedtime - methotrexate 2.5 mg ORAL tablet Take by mouth. Take 7 tablets a week - calcium carbonate/vitamin d3(CALCIUM 600 + D(3) 600 MG (1,500)-200 UNIT TAB) Take one(1) tablet twice daily. - FOLIC ACID 1 MG TAB Take one(1) tablet daily. - esomeprazole (NEXIUM) 40 mg ORAL CpDR Take one(1) capsule daily. - L-LYSINE 500 MG TAB 2 tabs daily - THERAPEUTIC MULTIVITAMIN TAB Take one(1) tablet daily. - TYLENOL ARTHRITIS 650 MG TAB two tabs twice daily - PLAQUENIL 200 MG TAB Take one tablet daily with breakfast and 1/2 tablet in the evening with dinner Problem List As Of Date 02/24/2023 Noted Resolved Chronic cholecystitis [K81.1] 02/14/2005 03/06/2015 HYPOTHYROIDISM NOS [E03.9] 07/12/2005 03/23/2015 Other malaise and fatigue [R53.81, R53.83] 07/12/2005 03/06/2015 Myalgia and myositis, unspecified [[id number]] 07/12/2005 03/06/2015 Loss of weight [R63.4] 08/02/2005 03/06/2015 Sjogrens Syndrome [M35.00] 01/21/2007 Abnormal mammogram, unspecified [R92.8] 05/27/2013 03/06/2015 Abnormal mammogram with microcalcification [R92*06/17/2013 Hypothyroidism [E03.9] 03/23/2015 Rheumatoid arthritis involving multiple sites (*05/23/2015 GERD (gastroesophageal reflux disease) [K21.9] 07/26/2015 Family history of breast cancer [Z80.3] 01/19/2019 Rheumatoid arthritis of multiple sites with neg*06/10/2022 Encounter Status:Closed by ALMA STARK on 02/24/23 [facility] 02-17-2023 [facility] -------- KHLOE FLORES ([id number]) 1970 F Date Time Provider Department 02/17/23 JAN GEORGE [facility] During your visit today, we recorded the following information about you: Jan George, 02/17/2023 9:55 AM Signed Please inform patient that her blood cultures are normal/no growth of bacteria Her CRP and WSR are still slightly high but improved from previous 1 month ago labs. Also her CT of her left hip is normal. No infection signs or concerns. Likely pain is due to inflammation/bursitis How did her appt with Leather Case Finisher go? DO Chloe Aguilar Susan LPN 02/17/2023 10:18 AM Signed Pt. informed. Seeing Rheum. next week. Allergies As of Date: 02/17/2023 Noted Allergy Reaction ERYTHROMYCIN 02/12/2023 11 - Vomiting FLOXIN (OFLOXACIN) 01/19/2005 5 - Intolerance GUAIFENESIN 01/19/2005 7 - Swelling Comments: lips swell MYCINETTE (CETYLPYRIDINIUM-BENZOC* 01/19/2005 5 - Intolerance SULFA (SULFONAMIDE ANTIBIOTICS) 01/19/2005 7 - Swelling Comments: face VESICARE (SOLIFENACIN SUCCINATE) 05/15/2007 7 - Swelling Comments: tingle tongue Z-PACK (AZITHROMYCIN) 03/16/2007 6 - Diarrhea 11 - Vomiting Date Reviewed: 02/12/2023 Reviewed by: Jan George DO - Fully Assessed Reason for Visit: Results [95] Prescriptions as of 02/17/2023 - cephALEXin (KEFLEX) 500 mg capsule Take 1 capsule by mouth four times daily for 10 days. - predniSONE (DELTASONE) 10 mg tablet Take 3 tablets by mouth once daily for 4 days, THEN 2 tablets once daily for 4 days, THEN 1 tablet once daily for 4 days. - liothyronine (CYTOMEL) 5 mcg tablet Take 2 tablets by mouth daily in the late afternoon. - levothyroxine (LEVOXYL) 100 mcg tablet Take 1 tablet by mouth once daily. Take on empty stomach. For Thyroid. - levothyroxine (LEVOXYL) 100 mcg tablet Take 1 tablet by mouth daily before breakfast. Take on empty stomach. For Thyroid. - montelukast (SINGULAIR) 10 mg tablet Take 1 tablet by mouth daily at bedtime. - estradiol 10 mcg vaginal suppository maintenance pack (IMVEXXY) Use 1 Suppository vaginally two times a week. - cyanocobalamin, vitamin B-12, (VITAMIN B12 ORAL) Take by mouth. - traMADOL 50 mg ORAL tablet Take 1 tablet by mouth. @ bedtime - methotrexate 2.5 mg ORAL tablet Take by mouth. Take 7 tablets a week - calcium carbonate/vitamin d3(CALCIUM 600 + D(3) 600 MG (1,500)-200 UNIT TAB) Take one(1) tablet twice daily. - FOLIC ACID 1 MG TAB Take one(1) tablet daily. - esomeprazole (NEXIUM) 40 mg ORAL CpDR Take one(1) capsule daily. - L-LYSINE 500 MG TAB 2 tabs daily - THERAPEUTIC MULTIVITAMIN TAB Take one(1) tablet daily. - TYLENOL ARTHRITIS 650 MG TAB two tabs twice daily - PLAQUENIL 200 MG TAB Take one tablet daily with breakfast and 1/2 tablet in the evening with dinner Problem List As Of Date 02/17/2023 Noted Resolved Chronic cholecystitis [K81.1] 02/14/2005 03/06/2015 HYPOTHYROIDISM NOS [E03.9] 07/12/2005 03/23/2015 Other malaise and fatigue [R53.81, R53.83] 07/12/2005 03/06/2015 Myalgia and myositis, unspecified [[id number]] 07/12/2005 03/06/2015 Loss of weight [R63.4] 08/02/2005 03/06/2015 Sjogrens Syndrome [M35.00] 01/21/2007 Abnormal mammogram, unspecified [R92.8] 05/27/2013 03/06/2015 Abnormal mammogram with microcalcification [R92*06/17/2013 Hypothyroidism [E03.9] 03/23/2015 Rheumatoid arthritis involving multiple sites (*05/23/2015 GERD (gastroesophageal reflux disease) [K21.9] 07/26/2015 Family history of breast cancer [Z80.3] 01/19/2019 Rheumatoid arthritis of multiple sites with neg*06/10/2022 Encounter Status:Closed by PALMA HERNANDEZ LPN on 02/17/23 [facility]ha 02-13-2023 [facility] -------- ALEJAKHLOE ([id number]) 1970 F Date Time Provider Department 02/13/23 JAN GEORGE During your visit today, we recorded the following information about you: Barragan, Debbie AHUMADA 02/13/2023 12:13 PM Signed Pt seen yesterday by pcp AND had a hip xray, results are pending. CT of left hip also ordered AND booked for today at 1PM. Pt states she received a call from the rad department telling her they have not gotten approval from her insurance co for the CT scan bc the xray results are not back yet. After consulting with IMPROVEMENT LEADER Óscar, was advised that she may want to cancel CT until she gets approval from insurance co. Pt states she is already on her way to have CT AND she does not want to cancel. I told pt that if insurance denies payment she will be responsible for bill. Pt states understanding AND said she is getting it done anyway. Pt asking if office can put a amador on xray reading? Please advise. Debbie Sendy Acevedo LPN, APRN.HYDROGENATION STILL OPERATOR 02/13/2023 1:00 PM Signed Agree with below. Are we able to call radiology of where she had x-ray done to see if this can be STAT? I cannot change order no that it has been completed. Thank you, Sendy Cantrell APRN.Alma Zaman LPN 02/13/2023 3:46 PM Signed This pt already had this ct completed today. Allergies As of Date: 02/13/2023 Noted Allergy Reaction ERYTHROMYCIN 02/12/2023 11 - Vomiting FLOXIN (OFLOXACIN) 01/19/2005 5 - Intolerance GUAIFENESIN 01/19/2005 7 - Swelling Comments: lips swell MYCINETTE (CETYLPYRIDINIUM-BENZOC* 01/19/2005 5 - Intolerance SULFA (SULFONAMIDE ANTIBIOTICS) 01/19/2005 7 - Swelling Comments: face VESICARE (SOLIFENACIN SUCCINATE) 05/15/2007 7 - Swelling Comments: tingle tongue Z-PACK (AZITHROMYCIN) 03/16/2007 6 - Diarrhea 11 - Vomiting Date Reviewed: 02/12/2023 Reviewed by: Jan George, DO - Fully Assessed Reason for Visit: Xray Results [439] Prescriptions as of 02/13/2023 - cephALEXin (KEFLEX) 500 mg capsule Take 1 capsule by mouth four times daily for 10 days. - predniSONE (DELTASONE) 10 mg tablet Take 3 tablets by mouth once daily for 4 days, THEN 2 tablets once daily for 4 days, THEN 1 tablet once daily for 4 days. - liothyronine (CYTOMEL) 5 mcg tablet Take 2 tablets by mouth daily in the late afternoon. - levothyroxine (LEVOXYL) 100 mcg tablet Take 1 tablet by mouth once daily. Take on empty stomach. For Thyroid. - levothyroxine (LEVOXYL) 100 mcg tablet Take 1 tablet by mouth daily before breakfast. Take on empty stomach. For Thyroid. - montelukast (SINGULAIR) 10 mg tablet Take 1 tablet by mouth daily at bedtime. - estradiol 10 mcg vaginal suppository maintenance pack (IMVEXXY) Use 1 Suppository vaginally two times a week. - cyanocobalamin, vitamin B-12, (VITAMIN B12 ORAL) Take by mouth. - traMADOL 50 mg ORAL tablet Take 1 tablet by mouth. @ bedtime - methotrexate 2.5 mg ORAL tablet Take by mouth. Take 7 tablets a week - calcium carbonate/vitamin d3(CALCIUM 600 + D(3) 600 MG (1,500)-200 UNIT TAB) Take one(1) tablet twice daily. - FOLIC ACID 1 MG TAB Take one(1) tablet daily. - esomeprazole (NEXIUM) 40 mg ORAL CpDR Take one(1) capsule daily. - L-LYSINE 500 MG TAB 2 tabs daily - THERAPEUTIC MULTIVITAMIN TAB Take one(1) tablet daily. - TYLENOL ARTHRITIS 650 MG TAB two tabs twice daily - PLAQUENIL 200 MG TAB Take one tablet daily with breakfast and 1/2 tablet in the evening with dinner Problem List As Of Date 02/13/2023 Noted Resolved Chronic cholecystitis [K81.1] 02/14/2005 03/06/2015 HYPOTHYROIDISM NOS [E03.9] 07/12/2005 03/23/2015 Other malaise and fatigue [R53.81, R53.83] 07/12/2005 03/06/2015 Myalgia and myositis, unspecified [[id number]] 07/12/2005 03/06/2015 Loss of weight [R63.4] 08/02/2005 03/06/2015 Sjogrens Syndrome [M35.00] 01/21/2007 Abnormal mammogram, unspecified [R92.8] 05/27/2013 03/06/2015 Abnormal mammogram with microcalcification [R92*06/17/2013 Hypothyroidism [E03.9] 03/23/2015 Rheumatoid arthritis involving multiple sites (*05/23/2015 GERD (gastroesophageal reflux disease) [K21.9] 07/26/2015 Family history of breast cancer [Z80.3] 01/19/2019 Rheumatoid arthritis of multiple sites with neg*06/10/2022 Encounter Status:Closed by ALMA STARK on 02/13/23 Normal [facility] CT HIP WO IVCON LEFTon 02-13 [facility] CT HIP WO IVCON LTon 023 CT HIP WO IVCON LT * * *Final Report* * * DATE OF EXAM: Feb 13 2023 12:48PM [facility] 0079 - CT HIP WO IVCON LT / PROCEDURE REASON: multiple diagnoses * * * * Physician Interpretation * * * * CT LEFT HIP CLINICAL INDICATION: Left hip pain COMPARISON: Radiographs left hip 02/12/2023 TECHNIQUE: CT left hip with axial, sagittal and coronal reconstructions. Contrast: None CT Dose-Length Product: 151.99 mGy*cm CT Dose Reduction Employed: Automated exposure control (AEC) and/or iterative reconstruction was used. FINDINGS: Left hip joint is maintained. Small sclerotic foci within the anterior superior acetabulum and left ischial tuberosity are compatible with small bone islands. No bone erosions. No soft tissue mass or adenopathy. No fluid collection. IMPRESSION: No acute abnormality of the left hip. Left hip joint space is maintained. Advertising Account Representative: PSCB Transcribe Date/Time: Feb 13 2023 1:14P Dictated by : АНДРЕЙ CHEEK MD This examination was interpreted and the report reviewed and electronically signed by: АНДРЕЙ CHEEK MD on Feb 13 2023 1:17PM EST [id number] Normal [facility] Bacteria Bld Culton 02-13-20 23 Bacteria identified Cx Nom (Bld) CULTURE, BLOOD: No growth 5 days Normal [facility] Comment on above: Performed By: #### 6 00-7 ####[facility] LAB[facility]IA [id number] [place] [address] [place] C-REACTIVE PROTEIN (CRP)on 04-14-2022 CRP [Mass/Vol] 1.1 mg/dL High <0.9 mg/dL [facility] CBC W Auto Differential pane l (Bld)on 02-12-2023 Basophils (Bld) [#/Vol] <0.11 k/uL [facility] Basophils/100 WBC (Bld) 0.3 % [facility] Differential cell count method Nom (Bld) Auto [facility] Eosinophils (Bld) [#/Vol] <0.46 k/uL [facility] Eosinophils/100 WBC (Bld) 0.3 % [facility] Erythrocyte distribution width (RBC) [Ratio] 12.6 % 11.5 - 15.0 % [facility] Hematocrit (Bld) [Volume fraction] 39.3 % 36.0 - 46.0 % [facility] Hemoglobin (Bld) [Mass/Vol] 13.1 g/dL 11.5 - 15.5 g/dL [facility] Immature granulocytes (Bld) [#/Vol] 0.04 10*3/uL <0.10 k/uL [facility] Immature granulocytes/100 WBC (Bld) 0.6 % [facility] Lymphocytes (Bld) [#/Vol] 0.96 10*3/uL Low 1.00 - 4.00 k/uL [facility] Lymphocytes/100 WBC (Bld) 13.2 % [facility] MCH (RBC) [Entitic mass] 33.4 pg 26.0 - 34.0 pg [facility] MCHC (RBC) [Mass/Vol] 33.3 g/dL 30.5 - 36.0 g/dL [facility] MCV (RBC) [Entitic vol] 100.3 fL High 80.0 - 100.0 fL [facility] Monocytes (Bld) [#/Vol] 0.55 10*3/uL <0.87 k/uL [facility] Monocytes/100 WBC (Bld) 7.6 % [facility] Neutrophils (Bld) [#/Vol] 5.67 10*3/uL 1.45 - 7.50 k/uL [facility] Neutrophils/100 WBC (Bld) 78.0 % [facility] Nucleated RBC (Bld) [#/Vol] <0.01 k/uL [facility] Nucleated RBC/100 WBC (Bld) [Ratio] 0.0 /100 WBC [facility] Platelet mean volume (Bld) [Entitic vol] 9.2 fL 9.0 - 12.7 fL [facility] Platelets (Bld) [#/Vol] 294 10*3/uL 150 - 400 k/uL [facility] RBC (Bld) [#/Vol] 3.92 10*6/uL 3.90 - 5.2 0 m/uL [facility] WBC (Bld) [#/Vol] 7.26 10*3/uL 3.70 - 11. 00 k/uL [facility] Basophils (Bld) [#/Vol] 10*3/uL Normal <0.11 [facility] Comment on above: Order Comment: Speci men Type: BLOOD SPECIMEN Ordering Facility: [facility] Address: [address] [place] [address] Performed By: #### 2 132-9, 3024-7, 3051-0, 3016-3 #### [facility] CLIA [id number] [address] [place] [address] [place] Basophils/100 WBC (Bld) 0.3 % Normal [facility] Comment on above: Order Comment: Speci men Type: BLOOD SPECIMEN Ordering Facility: [facility] Address: [address] [place] [address] Performed By: #### 2 132-9, 3024-7, 3051-0, 3016-3 #### [facility] CLIA [id number] [address] [place] [address] [place] Differential cell count method Nom (Bld) Auto Normal [facility] Comment on above: Order Comment: Speci men Type: BLOOD SPECIMEN Ordering Facility: [facility] Address: [address] [place] [address] Performed By: #### 2 132-9, 3024-7, 3051-0, 3016-3 #### [facility] CLIA [id number] [address] [place] [address] [place] Eosinophils (Bld) [#/Vol] 10*3/uL Normal <0.46 [facility] Comment on above: Order Comment: Speci men Type: BLOOD SPECIMEN Ordering Facility: [facility] Address: [address] [place] [address] Performed By: #### 2 132-9, 3024-7, 3051-0, 3016-3 #### [facility] CLIA [id number] [address] [place] [address] [place] Eosinophils/100 WBC (Bld) 0.3 % Normal [facility] Comment on above: Order Comment: Speci men Type: BLOOD SPECIMEN Ordering Facility: [facility] Address: [address] [place] [address] Performed By: #### 2 132-9, 3024-7, 3051-0, 3016-3 #### [facility] CLIA [id number] [address] [place] [address] [place] Erythrocyte distribution width (RBC) [Ratio] 12.6 % Normal 11.5-15.0 [facility] Comment on above: Order Comment: Speci men Type: BLOOD SPECIMEN Ordering Facility: [facility] Address: [address] [place] [address] Performed By: #### 2 132-9, 3024-7, 305-0, 3016-3 #### [facility] CLIA [id number] [address] [place] [address] [place] Hematocrit (Bld) [Volume fraction] 39.3 % Normal 36.0-46.0 [facility] Comment on above: Order Comment: Speci men Type: BLOOD SPECIMEN Ordering Facility: [facility] Address: [address] [place] [address] Performed By: #### 2 132-9, 3024-7, 3051-0, 3016-3 #### [facility] CLIA [id number] [address] [place] [address] [place] Hemoglobin (Bld) [Mass/Vol] 13.1 g/dL Normal 11.5-15.5 [facility] Comment on above: Order Comment: Speci men Type: BLOOD SPECIMEN Ordering Facility: [facility] Address: [address] [place] [address] Performed By: #### 2 132-9, 3024-7, 3051-0, 3016-3 #### [facility] CLIA [id number] [address] [place] [address] [place] Immature granulocytes (Bld) [#/Vol] 0.04 10*3/uL Normal <0.10 [facility] Comment on above: Order Comment: Speci men Type: BLOOD SPECIMEN Ordering Facility: [facility] Address: [address] [place] [address] Performed By: #### 2 132-9, 3024-7, 3051-0, 3016-3 #### [facility] CLIA [id number] [address] [place] [address] [place] Immature granulocytes/100 WBC (Bld) 0.6 % Normal [facility] Comment on above: Order Comment: Speci men Type: BLOOD SPECIMEN Ordering Facility: [facility] Address: [address] [place] [address] Performed By: #### 2 132-9, 3024-7, 3051-0, 3016-3 #### [facility] CLIA [id number] [address] [place] [address] [place] Lymphocytes (Bld) [#/Vol] 0.96 10*3/uL Low 1.00-4.00 [facility] Comment on above: Order Comment: Speci men Type: BLOOD SPECIMEN Ordering Facility: [facility] Address: [address] [place] [address] Performed By: #### 2 132-9, 3024-7, 3051-0, 3016-3 #### [facility] CLIA [id number] [address] [place] [address] [place] Lymphocytes/100 WBC (Bld) 13.2 % Normal [facility] Comment on above: Order Comment: Speci men Type: BLOOD SPECIMEN Ordering Facility: [facility] Address: [address] [place] [address] Performed By: #### 2 132-9, 3024-7, 3051-0, 3016-3 #### [facility] CLIA [id number] [address] [place] [address] [place] MCH (RBC) [Entitic mass] 33.4 pg Normal 26.0-34.0 [facility] Comment on above: Order Comment: Speci men Type: BLOOD SPECIMEN Ordering Facility: [facility] Address: [address] [place] [address] Performed By: #### 2 132-9, 3024-7, 3051-0, 3016-3 #### [facility] CLIA [id number] [address] [place] [address] [place] MCHC (RBC) [Mass/Vol] 33.3 g/dL Normal 30.5-36.0 [facility] Comment on above: Order Comment: Speci men Type: BLOOD SPECIMEN Ordering Facility: [facility] Address: [address] [place] [address] Performed By: #### 2 132-9, 3024-7, 3051-0, 3016-3 #### [facility] CLIA [id number] [address] [place] [address] [place] MCV (RBC) [Entitic vol] 100.3 fL High 80.0-100.0 [facility] Comment on above: Order Comment: Speci men Type: BLOOD SPECIMEN Ordering Facility: [facility] Address: [address] [place] [address] Performed By: #### 2 132-9, 3024-7, 3051-0, 3016-3 #### [facility] CLIA [id number] [address] [place] [address] [place] Monocytes (Bld) [#/Vol] 0.55 10*3/uL Normal <0.87 [facility] Comment on above: Order Comment: Speci men Type: BLOOD SPECIMEN Ordering Facility: [facility] Address: [address] [place] [address] Performed By: #### 2 132-9, 3024-7, 3051-0, 3016-3 #### [facility] CLIA [id number] [address] [place] [address] [place] Monocytes/100 WBC (Bld) 7.6 % Normal [facility] Comment on above: Order Comment: Speci men Type: BLOOD SPECIMEN Ordering Facility: [facility] Address: [address] [place] [address] Performed By: #### 2 132-9, 3024-7, 3051-0, 3016-3 #### [facility] CLIA [id number] [address] [place] [address] [place] Neutrophils (Bld) [#/Vol] 5.67 10*3/uL Normal 1.45-7.50 [facility] Comment on above: Order Comment: Speci men Type: BLOOD SPECIMEN Ordering Facility: [facility] Address: [address] [place] [address] Performed By: #### 2 132-9, 3024-7, 3051-0, 3016-3 #### [facility] CLIA [id number] [address] [place] [address] [place] Neutrophils/100 WBC (Bld) 78.0 % Normal [facility] Comment on above: Order Comment: Speci men Type: BLOOD SPECIMEN Ordering Facility: [facility] Address: [address] [place] [address] Performed By: #### 2 132-9, 3024-7, 3051-0, 3016-3 #### [facility] CLIA [id number] [address] [place] [address] [place] Nucleated RBC (Bld) [#/Vol] 10*3/uL Normal <0.01 [facility] Comment on above: Order Comment: Speci men Type: BLOOD SPECIMEN Ordering Facility: [facility] Address: [address] [place] [address] Performed By: #### 2 132-9, 3024-7, 3051-0, 3016-3 #### [facility] CLIA [id number] [address] [place] [address] [place] Nucleated RBC/100 WBC (Bld) [Ratio] 0.0 /100 WBC Normal [facility] Comment on above: Order Comment: Speci men Type: BLOOD SPECIMEN Ordering Facility: [facility] Address: [address] [place] [address] Performed By: #### 2 132-9, 3024-7, 3051-0, 3016-3 #### [facility] CLIA [id number] [address] [place] [address] [place] Platelet mean volume (Bld) [Entitic vol] 9.2 fL Normal 9.0-12.7 [facility] Comment on above: Order Comment: Speci men Type: BLOOD SPECIMEN Ordering Facility: [facility] Address: [address] [place] [address] Performed By: #### 2 132-9, 3024-7, 3051-0, 3016-3 #### [facility] CLIA [id number] [address] [place] [address] [place] Platelets (Bld) [#/Vol] 294 10*3/uL Normal 150-400 [facility] Comment on above: Order Comment: Speci men Type: BLOOD SPECIMEN Ordering Facility: [facility] Address: [address] [place] [address] Performed By: #### 2 132-9, 3024-7, 3051-0, 3016-3 #### [facility] CLIA [id number] [address] [place] [address] [place] RBC (Bld) [#/Vol] 3.92 10*6/uL Normal 3.90-5.20 [facility] Comment on above: Order Comment: Speci men Type: BLOOD SPECIMEN Ordering Facility: [facility] Address: [address] [place] [address] Performed By: #### 2 132-9, 3024-7, 3051-0, 3016-3 #### [facility] CLIA [id number] [address] [place] [address] [place] WBC (Bld) [#/Vol] 7.26 10*3/uL Normal 3.70-11.00 [facility] Comment on above: Order Comment: Speci men Type: BLOOD SPECIMEN Ordering Facility: [facility] Address: [address] [place] [address] Performed By: #### 2 132-9, 3024-7, 3051-0, 3016-3 #### [facility] CLIA [id number] [address] [place] [address] [place] CNOVon 02-12-2023 CNOV Office Visit (FAMPWS ) -------- KHLOE FLORES ([id number]) 1970 F Date Time Provider Department 02/12/23 9:40 AM JAN GEORGE FAMPWS During your visit today, we recorded the following information about you: Temperature Pulse Respiration Blood pressure 98.5 degrees 80/minute 16/minute 130/80 Weight 62.6 kg Jan George DO 02/12/2023 10:51 AM Signed CC: Khloe Flores is a 52 year old female who presents to the office for rash and hip pain HPI: Previously On 11/27 started with a redness/rash on left lower abdominal area and groin, red and warm. Then on 11/30-12/01 developed a fever that lasted about 9 hours associated with chills and sweating. Doesn't now max fever reached. Then felt okay on 12/02 and then rash was slightly painful. Started using her prednisone 10 mg in AM and 5 mg in PM about 2 days ago and feels it is improving. No further fevers and no vesicles. Did have her shingles vaccine prior already Seen in follow up on 01/06 by Sendy Cantrell CNP as below Rash is back, similar to before but not as severe. Hoping to get medication before it gets worse. No fever this time. Started again 2 days ago. Difficulty sleeping because of this, but not as severe of pain as prior. Rash exactly the same as prior: redness to L groin and hip area. Warm to touch. No blistering or ulceration. No raised area. Just a diffuse redness spreading down into L thigh. Was given prednisone taper and keflex x 10 days last time. Completely resolved symptoms last time. Hx of RA. Currently Rash, Now rash on right arm, chest, abdomen, upper thighs- red and warm- no pain on rash areas. Pain severe, worsening, Left buttock, was left groin into lateral left hip as a deep soreness/burning sensation, worse when laying down and sitting or any light or direct tough/ direct compression. Also with jolts that are so severe they are nauseating. Last dose of prednisone 10 mg a day- yesterday. Has been taking Tramadol up to 3 times a day for pain. Taking tylenol arthritis and intermittent ibuprofen which she isn't supposed to be taking chronically and using voltaren 1% cream. Hasn't taken her Xeljanz or her Plaquenil today Has been taking Keflex with temporary benefit / relief. Now for Keflex Dec 09 course for 10 days, last dosing 01/06 for 10 days and 01/16 for 7 days. Each time she is on the antibiotic her symptoms do improve then start to reoccur usually within days of her antibiotic being completed. Very frustrated with the severity of symptoms. Her CRP and WSR were also high with labs in Dec when checked by JORDAN PAST MEDICAL HISTORY Diagnosis Date Acute cholecystitis Hypothyroidism Hypothyroidism 03/23/2015 Localization-related (focal) (partial) epilepsy and epileptic syndromes with simple partial seizures, without mention of intractable epilepsy grand mal last one age 7 Microcalcifications of the breast 06/10/2013 Left breast Osteopenia of neck of left femur 2022 Other specified disorder of gallbladder Rheumatoid arthritis(714.0) Sjogren's syndrome (HCC) 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 Sjogrens Syndrome Unspecified hypothyroidism PAST SURGICAL HISTORY Procedure Laterality Date ARTHROSCOPY KNEE DIAGNOSTIC W/WO SYNOVIAL BX SPX Left 86,84 Arthroscopy, knee BIOPSY OF BREAST 2013 microcalcifications COLONOSCOPY EGD LAPS SURG CHOLECYSTECTOMY W/CHOLANGIOGRAPHY 02/27/2005 NOVASURE 08/01/2015 HYSTEROSCOPY, ABLATION ENDOMETRIAL NOVASURE PAST SURGICAL HISTORY OF MOLE REMOVAL ON BACK X 2- benign PAST SURGICAL HISTORY OF wisdom teeth Current Outpatient Medications Medication Sig liothyronine (CYTOMEL) 5 mcg tablet Take 2 tablets by mouth daily in the late afternoon. levothyroxine (LEVOXYL) 100 mcg tablet Take 1 tablet by mouth once daily. Take on empty stomach. For Thyroid. levothyroxine (LEVOXYL) 100 mcg tablet Take 1 tablet by mouth daily before breakfast. Take on empty stomach. For Thyroid. montelukast (SINGULAIR) 10 mg tablet Take 1 tablet by mouth daily at bedtime. estradiol 10 mcg vaginal suppository maintenance pack (IMVEXXY) Use 1 Suppository vaginally two times a week. cyanocobalamin, vitamin B-12, (VITAMIN B12 ORAL) Take by mouth. traMADOL 50 mg ORAL tablet Take 1 tablet by mouth. @ bedtime methotrexate 2.5 mg ORAL tablet Take by mouth. Take 7 tablets a week calcium carbonate/vitamin d3(CALCIUM 600 + D(3) 600 MG (1,500)-200 UNIT TAB) Take one(1) tablet twice daily. FOLIC ACID 1 MG TAB Take one(1) tablet daily. esomeprazole (NEXIUM) 40 mg ORAL CpDR Take one(1) capsule daily. L-LYSINE 500 MG TAB 2 tabs daily THERAPEUTIC MULTIVITAMIN TAB Take one(1) tablet daily. TYLENOL ARTHRITIS 650 MG TAB two tabs twice daily PLAQUENIL 200 MG TAB Take one tablet daily with derrick (more content not included)... Normal [facility] CRP SerPl-mCncon 02-12-2023 CRP [Mass/Vol] 1.1 mg/dL High <0.9 [facility] Comment on above: Order Comment: Speci men Type: BLOOD SPECIMEN Ordering Facility: [facility] Address: [address] [place] [address] Performed By: #### 2 132-9, 3024-7, 3051-0, 3016-3 #### [facility] CLIA [id number] [address] [place], [place] [address] [facility] Comprehensive metabolic 2000 panelon 02-12-2023 Albumin [Mass/Vol] 4.0 g/dL 3.9 - 4.9 g/dL [facility] ALP [Catalytic activity/Vol] 70 U/L 34 - 123 U/L [facility] ALT [Catalytic activity/Vol] 13 U/L 7 - 38 U/L [facility] Anion gap [Moles/Vol] 10 mmol/L 9 - 18 mmol/L [facility] AST [Catalytic activity/Vol] 17 U/L 13 - 35 U/L [facility] Bilirubin [Mass/Vol] 0.2 mg/dL 0.2 - 1.3 mg/dL [facility] Calcium [Mass/Vol] 9.1 mg/dL 8.5 - 10. 2 mg/dL [facility] Chloride [Moles/Vol] 102 mmol/L 97 - 105 mmol/L [facility] CO2 [Moles/Vol] 24 mmol/L 22 - 30 mmol/L [facility] Creatinine [Mass/Vol] 0.61 mg/dL 0.58 - 0.96 mg/dL [facility] Estimated Glomerular Filtration Rate 108 mL/min/1.73m >=60 mL/min/1.73m [facility] Glucose [Mass/Vol] 80 mg/dL 74 - 99 mg/dL [facility] Potassium [Moles/Vol] 3.7 mmol/L 3.7 - 5.1 mmol/L [facility] Protein [Mass/Vol] 6.4 g/dL 6.3 - 8.0 g/dL [facility] Sodium [Moles/Vol] 136 mmol/L 136 - 144 mmol/L [facility] Urea nitrogen [Mass/Vol] 7 mg/dL 7 - 21 mg/dL [facility] Albumin [Mass/Vol] 4.0 g/dL Normal 3.9-4.9 [facility] Comment on above: Order Comment: Speci men Type: BLOOD SPECIMENOrdering Facility: [facility] Address: [address] [place] [address] Performed By: #### 2 4323-8, 2531-0 ####[facility] MILL[facility]OWNCLIA [id number] [place] [address] [place] ALP [Catalytic activity/Vol] 70 U/L Normal 34-123 [facility] Comment on above: Order Comment: Speci men Type: BLOOD SPECIMENOrdering Facility: [facility] Address: [address] [place] [address] Performed By: #### 2 4328, 2531-0 ####[facility] MILLTOWNCLIA [id number] [place] [address] [place] ALT [Catalytic activity/Vol] 13 U/L Normal 7-38 [facility] Comment on above: Order Comment: Speci men Type: BLOOD SPECIMENOrdering Facility: [facility] Address: [address] [place] [address] Performed By: #### 2 4323-8, 2531-0 ####[facility] MILLTOWNCLIA [id number] [place] [address] [place] Anion gap [Moles/Vol] 10 mmol/L Normal 9-18 [facility] Comment on above: Order Comment: Speci men Type: BLOOD SPECIMENOrdering Facility: [facility] Address: [address] [place] [address] Performed By: #### 2 4323-8, 2531-0 ####[facility] MILLTOWNCLIA [id number] [place] [address] [place] AST [Catalytic activity/Vol] 17 U/L Normal 13-35 [facility] Comment on above: Order Comment: Speci men Type: BLOOD SPECIMENOrdering Facility: [facility] Address: [address] [place] [address] Performed By: #### 2 4323-8, 2531-0 ####[facility] [id number] [place] [address] [place] Bilirubin [Mass/Vol] 0.2 mg/dL Normal 0.2-1.3 [facility] Comment on above: Order Comment: Speci men Type: BLOOD SPECIMENOrdering Facility: [facility] Address: [address] [place] [address] Performed By: #### 2 4323-8, 2531-0 ####[facility] [id number] [place] [address] [place] Calcium [Mass/Vol] 9.1 mg/dL Normal 8.5-10.2 [facility] Comment on above: Order Comment: Speci men Type: BLOOD SPECIMENOrdering Facility: [facility] Address: [address] [place] [address] Performed By: #### 2 4323-8, 2531-0 ####[facility] [id number] [place] [address] [place] Chloride [Moles/Vol] 102 mmol/L Normal 97-105 [facility] Comment on above: Order Comment: Speci men Type: BLOOD SPECIMENOrdering Facility: [facility] Address: [address] [place] [address] Performed By: #### 2 4323-8, 253-0 ####[facility] ERNCLIA [id number] [place] [address] [place] CO2 [Moles/Vol] 24 mmol/L Normal 22-30 [facility] Comment on above: Order Comment: Speci men Type: BLOOD SPECIMENOrdering Facility: [facility] Address: [place] [address] Performed By: #### 2 4323-8, ####[facility] [id number] [place] [address] [place] Creatinine [Mass/Vol] 0.61 mg/dL Normal 0.58-0.96 [facility] Comment on above: Order Comment: Speci men Type: BLOOD SPECIMENOrdering Facility: [facility] Address: [place] [address] Performed By: #### 2 4328, ####[facility] [id number] [place] [address] [place] Creatinine and Glomerular filtration rate.predicted panel (S/P/Bld) 108 mL/min/1.73m??? Normal >=60 [facility] Comment on above: Order Comment: Speci men Type: BLOOD SPECIMENOrdering Facility: [facility] Address: [place] [address] Result Comment: Kay mated Glomerular Filtration Rate (eGFR) is calculated using the 2020 CKD-EPI creatinine equation. This equation utilizes serum creatinine, sex, and age as parameters. The creatinine assay has traceable calibration to isotope dilution-mass spectrometry. Refer to KDIGO guidelines for clinical interpretation. In patients with unstable renal function, e.g. those with acute kidney injury, the eGFR may not accurately reflect actual GFR. Performed By: #### 2 43238, ####[facility] [id number] [place] [address] [place] Glucose [Mass/Vol] 80 mg/dL Normal 74-99 [facility] Comment on above: Order Comment: Speci men Type: BLOOD SPECIMENOrdering Facility: [facility] Address: [place] [address] Result Comment: The [place] [employer] (ADA) provides guidance for cutoff values for fasting glucose and random glucose. The ADA defines fasting as no caloric intake for at least 8 hours. Fasting plasma glucose results between 100 to 125 mg/dL indicate increased risk for diabetes (prediabetes). Fasting plasma glucose results greater than or equal to 126 mg/dL meet the criteria for diagnosis of diabetes. In the absence of unequivocal hyperglycemia, results should be confirmed by repeat testing. In a patient with classic symptoms of hyperglycemia or hyperglycemic crisis, random plasma glucose results greater than or equal to 200 mg/dL meet the criteria for diagnosis of diabetes. Reference: Standards of Medical Care in Diabetes 2016, [place] [employer]. Diabetes Care. 2016.39(Suppl 1). Performed By: #### 2 4323-8, 253-0 ####[facility] [id number] [place] [address] [place] Potassium [Moles/Vol] 3.7 mmol/L Normal 3.7-5.1 [facility] Comment on above: Order Comment: Speci men Type: BLOOD SPECIMENOrdering Facility: [facility] Address: [address] [place], [place] [address] Performed By: #### 2 4323-8, 2530 ####[facility] [id number] [place] [address] [place] Protein [Mass/Vol] 6.4 g/dL Normal 6.3-8.0 [facility] Comment on above: Order Comment: Speci men Type: BLOOD SPECIMENOrdering Facility: [facility] Address: [address] [id number] Performed By: #### 2 4323-8, 2531-0 ####[facility] [id number] [place] [address] [place] Sodium [Moles/Vol] 136 mmol/L Normal 136-144 [facility] Comment on above: Order Comment: Speci men Type: BLOOD SPECIMENOrdering Facility: [facility] Address: [address] [place], [place] [id number] Performed By: #### 2 4323-8, 2531-0 ####[facility] ERRAFI [id number] [place] [address] [place] Urea nitrogen [Mass/Vol] 7 mg/dL Normal 7-21 [facility] Comment on above: Order Comment: Speci men Type: BLOOD SPECIMENOrdering Facility: [facility] Address: [address] [facility] [place] [address] Performed By: #### 2 4323-8, 0 ####[facility] [id number] [place] [address] [place] ESR Westergren method (Bld) [Velocity]on 02-12-2023 ESR (Bld) [Velocity] 27 mm/h High 0 - 20 mm/hr [facility] ESR (Bld) [Velocity] 27 mm/h High 0-20 [facility] Comment on above: Order Comment: Speci men Type: BLOOD SPECIMEN [facility] Address: [address] [place] [address] Performed By: #### 4 537-7 #### [facility] CLIA [id number] [address] [facility] [address] [id number] [address] [place] LD LACTATE DEHYDROon 023 LDH [Catalytic activity/Vol] 217 U/L High 135 - 214 U/L [facility] LDH SerPl-cCncon 02-12-2023 LDH [Catalytic activity/Vol] 217 U/L High 135-214 [facility] Comment on above: Order Comment: Speci men Type: BLOOD SPECIMENOrdering Facility: [facility] Address: [address] [place] [address] Performed By: #### 2 4323-8, 0 ####[facility] ERNCLIA [id number] [place] [address] [place] Lactate (Bld) [Moles/Vol]on 02-12-2023 Lactate [Moles/Vol] 0.8 mmol/L 0.5 - 2.2 mmol/L [facility] Lactate [Moles/Vol] 0.8 mmol/L Normal 0.5-2.2 [facility] Comment on above: Order Comment: Speci men Type: BLOOD SPECIMENOrdering Facility: [facility] Address: [address] [place] [address] Performed By: #### 3 2693-4 ####[facility]CL[facility] [id number] [facility] [id number] [id number] [place] XR HIP 3V PELV+ AP/LAT LTon 02-12-2023 XR HIP 3V PELV+ AP/LAT LT * * *Final Report* * * DATE OF EXAM: Feb 12 2023 11:02AM [id number] - XR HIP 3V PELV+ AP/LAT LT / PROCEDURE REASON: multiple diagnoses * * * * Physician Interpretation * * * * EXAMINATION: XR HIP 3V PELV+ AP/LAT LT CLINICAL HISTORY: Left hip pain, fever and swelling Technique: XR HIP 3V PELV+ AP/LAT LT -- LEFT with 3 views on 3 images Comparison: None RESULT: No acute fracture or dislocation. Joint spaces are maintained. IMPRESSION: No acute osseous abnormality Advertising Account Representative: MILLY Transcribe Date/Time: Feb 14 2023 1:39P Dictated by : JESSICA URRUTIA MD This examination was interpreted and the report reviewed and electronically signed by: JESSICA URRUTIA MD on Feb 14 2023 1:39PM EST [id number] Normal [facility] CBC W Auto Differential pane l (Bld)on 01-06-2023 Basophils (Bld) [#/Vol] <0.11 k/uL [facility] Basophils/100 WBC (Bld) 0.2 % [facility] Differential cell count method Nom (Bld) Auto [facility] Eosinophils (Bld) [#/Vol] <0.46 k/uL [facility] Eosinophils/100 WBC (Bld) 0.0 % [facility] Erythrocyte distribution width (RBC) [Ratio] 12.3 % 11.5 - 15.0 % [facility] Hematocrit (Bld) [Volume fraction] 47.3 % High 36.0 - 46.0 % [facility] Hemoglobin (Bld) [Mass/Vol] 15.9 g/dL High 11.5 - 15.5 g/dL [facility] Immature granulocytes (Bld) [#/Vol] 0.05 10*3/uL <0.10 k/uL [facility] Immature granulocytes/100 WBC (Bld) 0.6 % [facility] Lymphocytes (Bld) [#/Vol] 0.77 10*3/uL Low 1.00 - 4.00 k/uL [facility] Lymphocytes/100 WBC (Bld) 8.9 % [facility] MCH (RBC) [Entitic mass] 34.3 pg High 26.0 - 34.0 pg [facility] MCHC (RBC) [Mass/Vol] 33.6 g/dL 30.5 - 36.0 g/dL [facility] MCV (RBC) [Entitic vol] 102.2 fL High 80.0 - 100.0 fL [facility] Monocytes (Bld) [#/Vol] 0.36 10*3/uL <0.87 k/uL [facility] Monocytes/100 WBC (Bld) 4.1 % [facility] Neutrophils (Bld) [#/Vol] 7.49 10*3/uL 1.45 - 7.50 k/uL [facility] Neutrophils/100 WBC (Bld) 86.2 % [facility] Nucleated RBC (Bld) [#/Vol] <0.01 k/uL [facility] Nucleated RBC/100 WBC (Bld) [Ratio] 0.0 /100 WBC [facility] Platelet mean volume (Bld) [Entitic vol] 9.5 fL 9.0 - 12.7 fL [facility] Platelets (Bld) [#/Vol] 315 10*3/uL 150 - 400 k/uL [facility] RBC (Bld) [#/Vol] 4.63 10*6/uL 3.90 - 5.2 0 m/uL [facility] WBC (Bld) [#/Vol] 8.69 10*3/uL 3.70 - 11. 00 k/uL [facility] ESR Westergren method (Bld) [Velocity]on 01-06-2023 ESR (Bld) [Velocity] 46 mm/h High 0 - 20 mm/hr [facility] DXA-AXIAL SKELETONon 023 [facility] KEILY SCREENING W TOMOon 05-16 [facility] KEILY DIAG W DOROTEO RTon 022 [facility] MRI BREAST WO/W IVCON BILon 05-29-2021 MRI BREAST WO/W IVCON NORMA * * *Final Report* * * DATE OF EXAM: May 29 2021 5:10PM [facility] 0773 - MRI BREAST WO/W IVCON NORMA / PROCEDURE REASON: [id number] abnormal and inconclusive findings on diagnostic imaging of breast * * * * Physician Interpretation * * * * #[id number] - MRI BREAST WO/W IVCON NORMA BREAST MRI OF BOTH BREASTS: 05/29/2021 HISTORY: 50 yo lady with family history of breast cancer. Prior benign, concordant right breast biopsies x 2. Recent diagnostic imaging of the right breast demonstrated probably benign asymmetry in the posterior right breast. Six month follow up recommended. MRI to evaluate for occult disease. RESULT: Comparison is made to exams dated: 05/08/2021 mammogram and 03/26/2021 mammogram - [facility]. Interpretation of this MRI was correlated with available mammograms and clinical information. Axial T1 images were obtained. The patient was studied using the Sentinelle dedicated breast coil in the Siemens 1.5 Aleta scanner. Initial axial STIR imaging was carried out followed by axial T1-weighted GRE imaging both before and after IV administration of 10 ml of Dotarem. Subsequently, subtraction imaging and 3-D reconstruction were completed on an independent workstation. An additional 4 minute high resolution sequence was performed after the first two 1 minute post-contrast sequences. FINDINGS: The tissue of both breasts is heterogeneously fibroglandular tissue. Bilateral background breast enhancement is mild. A few small foci of progressive enhancement are seen and these are judged to be benign. There is no suspicious mass, distortion, or enhancement in either breast. Artifact related to the biopsy clips in the lower, posterior and upper, posterior right breast. No suspicious enhancement associated with either clip. Also no suspicious enhancement associated with the asymmetry in the upper posterior right breast for which mammographic follow up was recommended. There are no abnormalities seen in the axillary nodes region or internal mammary nodes. IMPRESSION: NEGATIVE No MRI evidence of malignancy in either breast. Please note: A negative MRI does not preclude the need for continued mammographic surveillance of the finding in the right breast. Therefore, six month follow up RIGHT mammogram still recommended. A follow-up mammogram in 6 months is recommended to demonstrate stability. Krunal prince/eder:05/29/2021 19:58:39 Experience Planning Strategist(s): Ham Granda, RT(R)(M), [facility] MRI BI-RADS: 1 Negative Multiple national specialty organizations have released breast cancer screening guidelines for women at average risk for developing breast cancer - guidelines that are based on both evidence and opinion, yet differ on when to start and how often to screen for breast cancer. With representation from Breast Imaging, Internal Medicine, Women's Health, Family Medicine, and Medical/Surgical Oncology, the [facility] has carefully reviewed the data and reached the following consensus: 1) All women should engage in shared decision-making with their providers to decide when to start and how often to screen; 2) All women should have the opportunity to start screening mammography at age 40; 3) For women ages 45-55, we recommend annual screening mammograms; 4) For women ages 55 and over, we support both the transition from an annual to a biennial interval if this aligns more with patient's values and preferences, or continuation with annual screening; 5) All women should discuss with their providers when to stop screening mammograms. Advertising Account Representative: Eder Transcribe Date/Time: May 29 2021 4:45P Dictated by : KRUNAL DUMONT MD This examination was interpreted and the report reviewed and electronically signed by: KRUNAL DUMONT MD on May 29 2021 7:58PM EST [id number] Normal [facility] STEREO BX BREAST RTon [facility] STEREO BX BREAST RT Final Report SEE BOTTOM OF REPORT FOR ADDENDED TEXT DATE OF EXAM: Mar 09 2020 9:17AM [id number] [id number] - [facility] STEREO BX BREAST RT / PROCEDURE REASON: Abnormal mammogram Physician Interpretation FINAL REPORT #[id number] - [facility] STEREO BX BREAST RT STEREOTACTIC GUIDED BIOPSY RIGHT BREAST USING VACUUM DEVICE WITH MARKING DEVICE INSERTED AND POST DIGITAL MAMMOGRAPHIC IMAGIN03/09/2020 HISTORY: Abnormal Mammogram\ Patient presents for a stereotactic guided biopsy of the right breast. PATIENT CONSENT: A time-out was performed immediately prior to procedure start with the radiology team, correctly identifying the patient name, date of , procedure, anatomy (including marking of site and side), patient position, relevant diagnostic and radiology test results, safety precautions, and procedure-specific equipment needs. The procedure was explained to the patient including the risks, benefits and alternatives. Medications and allergies were also reviewed. The risks, including but not limited to infection and bleeding, were reviewed by the performing physician and the patient agreed to undergo the procedure. The radiologist and technologist were present throughout the entire procedure. Audible Time Out: 0839 Procedure Start: 0840 Procedure End: 08 PROCEDURE: Correlation is made to exams dated: 02/15/2020 mammogram, 02/10/2020 mammogram - [facility], and 01/19/2019 mammogram - [facility]. A stereotactic guided biopsy was performed for the area of calcifications located in the right breast upper inner aspect posterior depth. This was described on the previous mammography report. The skin was prepped in the usual manner. Local anesthetic was administered to the access site. The abnormality was approached from the craniocaudal aspect using an upright digital mammography unit. A 9 gauge biopsy needle was placed adjacent to the abnormality under computer guidance and confirmatory stereotactic mammography images were obtained to document needle placement. Once the needle was documented to be in the correct location, twelve specimens were obtained using the Neurolink system. The patient received additional local anesthetic during the procedure. A top hat shaped clip was inserted into the biopsy cavity. Post procedure digital mammographic imaging demonstrates the location device at the targeted area and complete removal of the calcifications. The specimens were sent to the laboratory for pathological analysis. IMPRESSION: STEREOTACTIC GUIDED BIOPSY BENIGN Stereotactic guided biopsy of the area of calcifications in the right breast upper inner aspect posterior depth was successful with no apparent post procedure complications. Pathology indicates benign ductal ectasia (DE), fibroadenomatoid change, fibrocystic changes (FC), and chronic inflammation with calcifications present. Pathology results are concordant with imaging findings. Multiple specimens have micro calcifications. Return to annual mammogram screening schedule is recommended. Андрей morrison/eder:03/10/2020 16:59:11 Experience Planning Strategist(s): RT Tayo(R)(M), [facility] Multiple national specialty organizations have released breast cancer screening guidelines for women at average risk for developing breast cancer - guidelines that are based on both evidence and opinion, yet differ on when to start and how often to screen for breast cancer. With representation from Breast Imaging, Internal Medicine, Women's Health, Family Medicine, and Medical/Surgical Oncology, the [facility] has carefully reviewed the data and reached the following consensus: 1) All women should engage in shared decision-making with their providers to decide when to start and how often to screen; 2) All women should have the opportunity to start screening mammography at age 40; 3) For women ages 45-55, we recommend annual screening mammograms; 4) For women ages 55 and over, we support both the transition from an annual to a biennial interval if this aligns more with patient's values and preferences, or continuation with annual screening; 5) All women should discuss with their providers when to stop screening mammograms. Advertising Account Representative: Eder Transcribe Date/Time: Mar 09 2020 8:15A Dictated by : АНДРЕЙ CHEEK MD This examination was interpreted and the report reviewed and electronically signed by: АНДРЕЙ CHEEK MD on Mar 09 2020 9:32AM EST This document has been addended by: АНДРЕЙ CHEEK MD on Mar 10 2020 4:59PM EST Normal [facility] Vital Signs Date Time Vital Sign Value Performing Clinician Rivas lubin 01-16-2024 10:51-0400 Body mass index (BMI) [Ratio] 24.45 kg/m2 Clifford Rodríguez APRN.CNP Work Phone: [facility] 01-16-2024 10:51-0400 Body temperature 98.01 [degF] Clifford Rodríguez APRN.HYDROGENATION STILL OPERATOR Work Phone: [facility] 01-16-2024 10:51-0400 Body weight 62.6 kg Clifford Rodríguez APRN.CNP Work Phone: [facility] 01-16-2024 10:51-0400 Respiratory rate 20 /min Clifford Rodríguez APRN.CNP Work Phone: [facility] 12-10-2023 07:40-0400 Body mass index (BMI) [Ratio] 24.98 kg/m2 Jan George DO Work Phone: [facility] 12-10-2023 07:40-0400 Body temperature 98.29 [degF] Jan George DO Work Phone: [facility] 12-10-2023 07:40-0400 Body weight 63.96 kg Jan George DO Work Phone: [facility] 12-10-2023 07:40-0400 Diastolic blood pressure 80 mm[Hg] Jan George DO Work Phone: [facility] 12-10-2023 07:40-0400 Heart rate 76 /min Jan George DO Work Phone: [facility] 12-10-2023 07:40-0400 Respiratory rate 16 /min Jan George DO Work Phone: [facility] 12-10-2023 07:40-0400 Systolic blood pressure 136 mm[Hg] Jan George DO Work Phone: [facility] 07-24-2023 07:39-0400 Body mass index (BMI) [Ratio] 25.01 kg/m2 Sendy Cantrell MERCHANDISE CLERK.HYDROGENATION STILL OPERATOR Work Phone: [facility] 07-24-2023 07:39-0400 Body temperature 99.39 [degF] Sendy Cantrell MERCHANDISE CLERK.HYDROGENATION STILL OPERATOR Work Phone: [facility] 07-24-2023 07:39-0400 Body weight 64.05 kg Sendy Cantrell MERCHANDISE CLERK.HYDROGENATION STILL OPERATOR Work Phone: [facility] 07-24-2023 07:39-0400 Diastolic blood pressure 82 mm[Hg] Sendy Cantrell MERCHANDISE CLERK.HYDROGENATION STILL OPERATOR Work Phone: [facility] 07-24-2023 07:39-0400 Heart rate 81 /min Sendy Cantrell MERCHANDISE CLERK.HYDROGENATION STILL OPERATOR Work Phone: [facility] 07-24-2023 07:39-0400 Respiratory rate 14 /min Sendy Cantrell MERCHANDISE CLERK.HYDROGENATION STILL OPERATOR Work Phone: [facility] 07-24-2023 07:39-0400 SaO2% (BldA) [Mass fraction] 99 % Sendy Cantrell MERCHANDISE CLERK.HYDROGENATION STILL OPERATOR Work Phone: [facility] 07-24-2023 07:39-0400 Systolic blood pressure 150 mm[Hg] Sendy Cantrell MERCHANDISE CLERK.HYDROGENATION STILL OPERATOR Work Phone: [facility] 06-09-2023 07:36-0400 Body height 162 cm Jan George DO Work Phone: [facility] 06-09-2023 07:36-0400 Body weight 63.5 kg Jan George DO Work Phone: [facility] 06-09-2023 07:36-0400 Diastolic blood pressure 80 mm[Hg] Jan George DO Work Phone: [facility] 06-09-2023 07:36-0400 Heart rate 86 /min Jan George DO Work Phone: [facility] 06-09-2023 07:36-0400 Respiratory rate 16 /min Jan George DO Work Phone: [facility] 06-09-2023 07:36-0400 SaO2% (BldA) [Mass fraction] 100 % Jan George DO Work Phone: [facility] 06-09-2023 07:36-0400 Systolic blood pressure 128 mm[Hg] Jan George DO Work Phone: [facility] 05-16-2023 [id number] Body height 161.3 cm Kendra Millan MERCHANDISE CLERK.CNM Work Phone: [facility] 05-16-2023 [id number] Body weight 63.96 kg Kendra Millan MERCHANDISE CLERK.CNM Work Phone: [facility] 05-16-2023 08:11-0500 Diastolic blood pressure 68 mm[Hg] Kendra Millan MERCHANDISE CLERK.CNM Work Phone: [facility] 05-16-2023 08:11-0500 Systolic blood pressure 112 mm[Hg] Kendra Millan MERCHANDISE CLERK.CNM Work Phone: [facility] 03-05-2023 14:08-0500 Body temperature 98.2 [degF] Jan George DO Work Phone: [facility] 03-05-2023 14:08-0500 Body weight 62.14 kg Jan George DO Work Phone: [facility] 03-05-2023 14:08-0500 Diastolic blood pressure 80 mm[Hg] Jan George DO Work Phone: [facility] 03-05-2023 14:08-0500 Heart rate 80 /min Jan George DO Work Phone: [facility] 03-05-2023 14:08-0500 Respiratory rate 16 /min Jan George DO Work Phone: [facility] 03-05-2023 14:08-0500 Systolic blood pressure 130 mm[Hg] Jan George DO Work Phone: [facility] 02-12-2023 09:32-0500 Body temperature 98.49 [degF] Jan George DO Work Phone: [facility] 02-12-2023 09:32-0500 Body weight 62.6 kg Jan George DO Work Phone: [facility] 02-12-2023 09:32-0500 Diastolic blood pressure 80 mm[Hg] Jan George DO Work Phone: [facility] 02-12-2023 09:32-0500 Heart rate 80 /min Jan George DO Work Phone: [facility] 02-12-2023 09:32-0500 Respiratory rate 16 /min Jan George DO Work Phone: [facility] 02-12-2023 09:32-0500 Systolic blood pressure 130 mm[Hg] Jan George DO Work Phone: [facility] 01-06-2023 12:35-0400 Body weight 62.23 kg Sendy Cantrell APRN.HYDROGENATION STILL OPERATOR Work Phone: [facility] 01-06-2023 12:35-0400 Diastolic blood pressure 64 mm[Hg] Sendy Cantrell MERCHANDISE CLERK.HYDROGENATION STILL OPERATOR Work Phone: [facility] 01-06-2023 12:35-0400 Heart rate 64 /min Sendy Cantrell MERCHANDISE CLERK.HYDROGENATION STILL OPERATOR Work Phone: [facility] 01-06-2023 12:35-0400 Respiratory rate 14 /min Sendy Cantrell MERCHANDISE CLERK.HYDROGENATION STILL OPERATOR Work Phone: [facility] 01-06-2023 12:35-0400 Systolic blood pressure 112 mm[Hg] Sendy Cantrell MERCHANDISE CLERK.HYDROGENATION STILL OPERATOR Work Phone: [facility] 12-09-2022 08:17-0400 Body temperature 99 [degF] Jan George DO Work Phone: [facility] 12-09-2022 08:17-0400 Body weight 62.14 kg Jan George DO Work Phone: [facility] 12-09-2022 08:17-0400 Diastolic blood pressure 80 mm[Hg] Jan George DO Work Phone: [facility] 12-09-2022 08:17-0400 Heart rate 80 /min Jan George DO Work Phone: [facility] 12-09-2022 08:17-0400 Respiratory rate 12 /min Jan George DO Work Phone: [facility] 12-09-2022 08:17-0400 Systolic blood pressure 136 mm[Hg] Jan George DO Work Phone: [facility] 06-10-2022 07:49-0400 Body weight 60.06 kg Jan George DO Work Phone: [facility] 06-10-2022 07:49-0400 Diastolic blood pressure 80 mm[Hg] Jan George DO Work Phone: [facility] 06-10-2022 07:49-0400 Heart rate 80 /min Jan George DO Work Phone: [facility] 06-10-2022 07:49-0400 SaO2% (BldA) [Mass fraction] 100 % Jan George DO Work Phone: [facility] 06-10-2022 07:49-0400 Systolic blood pressure 122 mm[Hg] Jan George DO Work Phone: [facility] 03-29-2022 09:26-0500 Body height 160 cm Kendra Millan MERCHANDISE CLERK.CNM Work Phone: [facility] 03-29-2022 09:26-0500 Body weight 60.33 kg Kendra Millan MERCHANDISE CLERK.CNM Work Phone: [facility] 03-29-2022 09:26-0500 Diastolic blood pressure 74 mm[Hg] Kendra Millan MERCHANDISE CLERK.CNM Work Phone: [facility] 03-29-2022 09:26-0500 Systolic blood pressure 118 mm[Hg] Kendra Millan MERCHANDISE CLERK.CNM Work Phone: [facility] 12-10-2021 08:25-0400 Body weight 59.88 kg Sendy Crowell MERCHANDISE CLERK.HYDROGENATION STILL OPERATOR Work Phone: [facility] 12-10-2021 08:25-0400 Diastolic blood pressure 60 mm[Hg] Sendy Crowell MERCHANDISE CLERK.HYDROGENATION STILL OPERATOR Work Phone: [facility] 12-10-2021 08:25-0400 Heart rate 64 /min Sendy Crowell MERCHANDISE CLERK.HYDROGENATION STILL OPERATOR Work Phone: [facility] 12-10-2021 08:25-0400 Respiratory rate 14 /min Sendy Mervat MERCHANDISE CLERK.HYDROGENATION STILL OPERATOR Work Phone: [facility] 12-10-2021 08:25-0400 Systolic blood pressure 110 mm[Hg] Sendy Zurjose MERCHANDISE CLERK.HYDROGENATION STILL OPERATOR Work Phone: [facility] Encounters Encounter Date Encounter Type Care Provider Facility Start: 01-16-2024 End: 01-16-2024 ambulatory JAN GEORGE Facility:[facility] Start: 01-16-2024 End: 01-16-2024 Telemedicine consultation with patient Clifford Rodríguez HYDROGENATION STILL OPERATOR Work Phone: Telemedicine Comment on above: Bacterial sinusitis (Primary Dx); Antibiotic-induced yeast infection Start: 12-10-2023 End: 12-10-2023 ambulatory JAN GEORGE Facility:[facility] Start: 12-10-2023 End: 12-10-2023 Patient encounter procedure Jan George DO Work Phone: [facility] [place] Comment on above: 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 (Primary Dx); Rheumatoid arthritis of multiple sites with negative rheumatoid factor (HCC); Hypoglycemia; Edema of both legs Start: 12-08-2023 End: 12-08-2023 ambulatory JAN GEORGE Facility:[facility] Start: 12-02-2023 End: 12-02-2023 Refill Jan George DO Work Phone: [facility] [place] Comment on above: Refill Request Start: 11-28-2023 End: 11-28-2023 Get Medical Advice Jan George DO Work Phone: [facility] [place] Comment on above: lab order Start: 11-13-2023 Refill Jan sandhu DO Work Phone: [facility] [place] Comment on above: Refill Request Start: 10-17-2023 Refill Jan sandhu DO Work Phone: [facility] [place] Comment on above: Refill Request Start: 09-17-2023 Telephone encounter Jan gómez DO Work Phone: [facility] [place] Comment on above: Results Start: 09-09-2023 End: 09-09-2023 ambulatory JAN GEORGE Facility:[facility] Start: 08-19-2023 End: 08-19-2023 ambulatory Andrae Ball PT Work Phone: [place] [facility] Physical Therapy Comment on above: Weakness of left low er extremity (Primary Dx); Lumbosacral radiculopathy at L5; Lumbosacral radiculopathy at S1 Start: 08-04-2023 End: 08-04-2023 ambulatory Viridiana Martínez ACCOUNTING CLERKS SUPERVISOR Work Phone: [facility] Physical Therapy Comment on above: Weakness of left low er extremity (Primary Dx); Lumbosacral radiculopathy at L5; Lumbosacral radiculopathy at S1 Start: 07-25-2023 Telephone encounter Radha broussard MD Work Phone: Infectious Disease Start: 07-24-2023 End: 07-24-2023 ambulatory Sendy Cantrell MERCHANDISE CLERK.HYDROGENATION STILL OPERATOR Work Phone: Family [facility] [place] Comment on above: Medication Start: 07-24-2023 End: 07-24-2023 Patient encounter procedure Sendy Cantrell MERCHANDISE CLERK.HYDROGENATION STILL OPERATOR Work Phone: [facility] [place] Comment on above: Tick bite of left fo ot, initial encounter (Primary Dx); Lyme disease; Elevated BP without diagnosis of hypertension Start: 07-22-2023 End: 07-22-2023 ambulatory Andrae Ball PT Work Phone: [facility] Physical Therapy Comment on above: Weakness of left low er extremity (Primary Dx); Lumbosacral radiculopathy at L5; Lumbosacral radiculopathy at S1 Start: 07-02-2023 Telephone encounter Jerome Eng MD Work Phone: Neurology Start: 07-01-2023 End: 07-01-2023 ambulatory Viridiana Martínez ACCOUNTING CLERKS SUPERVISOR Work Phone: [facility] Physical Therapy Comment on above: Weakness of left low er extremity (Primary Dx); Lumbosacral radiculopathy at L5; Lumbosacral radiculopathy at S1 Start: 06-27-2023 End: 06-27-2023 ambulatory JAN GEORGE Facility:[facility] Start: 06-23-2023 End: 06-23-2023 ambulatory Viridiana Martínez ACCOUNTING CLERKS SUPERVISOR Work Phone: [facility] Physical Therapy Comment on above: Weakness of left low er extremity (Primary Dx); Lumbosacral radiculopathy at L5; Lumbosacral radiculopathy at S1 Start: 06-12-2023 End: 06-12-2023 ambulatory Dayday Sage PT, DPT [place] [facility] Physical Therapy Comment on above: Weakness of left low er extremity (Primary Dx); Lumbosacral radiculopathy at L5; Lumbosacral radiculopathy at S1 Start: 06-09-2023 End: 06-09-2023 ambulatory JAN GEORGE Facility:[facility] Start: 06-09-2023 End: 06-09-2023 Patient encounter procedure Jan George DO Work Phone: [facility] Medicine [place] Comment on above: Well adult exam (Jewell nicky Dx); Hypothyroidism due to acquired atrophy of thyroid; Dyslipidemia; Vitamin D deficiency; Lyme disease; Left hip pain; Rheumatoid arthritis of multiple sites with negative rheumatoid factor (HCC) Start: 06-09-2023 End: 06-09-2023 Patient encounter status Jan George DO Work Phone: [facility] Work Phone: Start: 06-04-2023 End: 06-04-2023 ambulatory JAN GEORGE Facility:[facility] Start: 06-04-2023 Encounter for kylie amador adult medical examination without abnormal findings JAN GEORGE [facility] Start: 05-27-2023 End: 05-27-2023 ambulatory Viridiana Martínez ACCOUNTING CLERKS SUPERVISOR Work Phone: [facility] Physical Therapy Comment on above: Weakness of left low er extremity (Primary Dx); Lumbosacral radiculopathy at L5; Lumbosacral radiculopathy at S1 Start: 05-27-2023 End: 05-27-2023 ambulatory JAN GEORGE Facility:[facility] Start: 05-27-2023 End: 05-27-2023 Subsequent hospital visit by physician [facility] Work Phone: Radiology Comment on above: Breast asymmetry in female [N64.89] Start: 05-19-2023 Documentation procedure Mammog ernesto Coordinator [facility] Start: 05-19-2023 Letter encounter Mammography Coordinator [facility] Department Start: 05-19-2023 End: 05-19-2023 Orders Only Arlen Cedillo CNM Work Phone: OB/Gynecology Comment on above: Breast asymmetry in female (Primary Dx) Weakness of left low er extremity (Primary Dx); Lumbosacral radiculopathy at L5; Lumbosacral radiculopathy at S1 Start: 05-16-2023 End: 05-16-2023 ambulatory Kendra Millan APRN.CNM Work Phone: OB/Gynecology Comment on above: Imvexxy Start: 05-16-2023 Telephone encounter Jerome Eng MD Work Phone: Neurology Start: 05-16-2023 End: 05-16-2023 Patient encounter procedure Kendra Millan APRN.CNM Work Phone: OB/Gynecology Comment on above: Encounter for gyneco logical examination (general) (routine) without abnormal findings (Primary Dx); Encounter for screening mammogram for breast cancer; Postmenopausal; Family history of breast cancer Start: 05-16-2023 End: 05-16-2023 Patient encounter status Kendra Millan APRN.CNM Work Phone: [facility] Start: 05-16-2023 End: 05-16-2023 Subsequent hospital visit by physician Mri Radio [facility] (I-Stat/1.5t) Work Phone: Radiology Comment on above: Lyme disease [A69.20 ] Encounter for screen ing mammogram for malignant neoplasm of breast [Z12.31] Start: 05-06-2023 Refill Jan Potts son DO Work Phone: Family [facility] [place] Comment on above: Refill Request Start: 05-05-2023 End: 05-05-2023 ambulatory DAYDAY SAGE Facility:[facility] Start: 05-01-2023 End: 05-01-2023 Telemedicine consultation with patient Radha Fletcher MD Work Phone: [place] Start: 05-01-2023 End: 05-01-2023 ambulatory Radha Fletcher MD Work Phone: Infectious Disease Comment on above: Left leg numbness (P rimary Dx); Tick bite, unspecified site, sequela; Lyme disease Start: 04-28-2023 End: 04-28-2023 ambulatory RADHA FLETCHER Facility:[facility] Start: 03-28-2023 End: 03-29-2023 ambulatory RADHA TWMARTINEZ Facility:[facility] Start: 03-12-2023 Refill Jan sandhu DO Work Phone: Family [facility] [place] Comment on above: Refill Request Start: 03-05-2023 End: 03-05-2023 ambulatory JAN GEORGE Facility:[facility] Start: 03-05-2023 End: 03-05-2023 Patient encounter procedure Jan George DO Work Phone: [facility] [place] Comment on above: Lyme disease (Primar y Dx); Left hip pain; Fever, unspecified fever cause; Fatigue, unspecified type Start: 02-24-2023 ambulatory Jan sandhu DO Work Phone: [facility] [place] Start: 02-24-2023 Patient encounter procedure Jan George DO Work Phone: [facility] [place] Comment on above: appointment tomorrow ? Start: 02-24-2023 Telephone encounter Jan gómez DO Work Phone: [facility] [place] Comment on above: Back Pain Start: 02-17-2023 Telephone encounter Jan gómez DO Work Phone: [facility] [place] Comment on above: Results Start: 02-13-2023 ambulatory JAN GEORGE Facil ity:[facility] Start: 02-13-2023 Telephone encounter Jan gómez DO Work Phone: [facility] [place] Comment on above: Xray Results Start: 02-13-2023 End: 02-13-2023 Subsequent hospital visit by physician [facility] Work Phone: [facility] Comment on above: Left hip pain [M25.5 52] Start: 02-12-2023 End: 02-12-2023 ambulatory JAN GEORGE Facility:[facility] Start: 02-12-2023 End: 02-12-2023 Subsequent hospital visit by physician Liliam [facility] [place] [facility] Work Phone: Radiology Comment on above: Left hip pain [M25.5 52] Start: 02-12-2023 End: 02-12-2023 ambulatory JAN GEORGE Facility:[facility] Start: 02-12-2023 End: 02-12-2023 Patient encounter procedure Jan George DO Work Phone: [facility] [place] Comment on above: Left hip pain (Prima ry Dx); Fever, unspecified fever cause; Fatigue, unspecified type; Hip swelling, left; Rash; Macular erythematous rash; Localized swelling, mass, or lump of left lower extremity Start: 01-15-2023 ambulatory Sendy Óscar HUSSEIN.HYDROGENATION STILL OPERATOR Work Phone: [facility] [place] Comment on above: Rash Start: 01-15-2023 Telephone encounter Jan gómez DO Work Phone: [facility] [place] Comment on above: slight rash and hip tenderness remains (May need more atb.) Start: 01-08-2023 Telephone encounter Jan gómez DO Work Phone: [facility] [place] Start: 01-06-2023 End: 01-06-2023 Patient encounter procedure Sendy Cantrell MERCHANDISE CLERK.HYDROGENATION STILL OPERATOR Work Phone: [facility] [place] Comment on above: Rash Start: 01-05-2023 ambulatory Jan Potts son DO Work Phone: [facility] [place] Comment on above: Rash Start: 12-09-2022 ambulatory Jan Potts son DO Work Phone: [facility] [place] Comment on above: possible prescriptio n? Start: 12-09-2022 End: 12-09-2022 Patient encounter procedure Jan George DO Work Phone: [facility] [place] Comment on above: Vitamin D deficiency (Primary Dx); Hypothyroidism due to acquired atrophy of thyroid; Rash; Elevated MCV Start: 07-03-2022 Telephone encounter Shashi Guy MERCHANDISE CLERK.HYDROGENATION STILL OPERATOR Work Phone: [facility] [place] Comment on above: Results Start: 07-03-2022 End: 07-03-2022 Subsequent hospital visit by physician Bone Density [facility] Work Phone: Radiology Comment on above: Screening for osteop orosis [Z13.820] Start: 06-10-2022 Telephone encounter Jan gómez DO Work Phone: [facility] [place] Comment on above: Results Start: 06-10-2022 End: 06-10-2022 Patient encounter procedure Jan George DO Work Phone: [facility] [place] Comment on above: 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 2] Start: 03-29-2022 End: 03-29-2022 Patient encounter procedure Kendra Millan APRN.CNM Work Phone: OB/Gynecology Comment on above: Encounter for gyneco logical examination with abnormal finding (Primary Dx); Encounter for screening mammogram for breast cancer; Breast density; Vaginal atrophy Start: 03-29-2022 End: 03-29-2022 Patient encounter status Kendra Millan APRN.CNM Work Phone: OB/Gynecology Start: 01-24-2022 Refill Sendy duffy MERCHANDISE CLERK.HYDROGENATION STILL OPERATOR Work Phone: [facility] [place] Comment on above: Refill Request Start: 12-10-2021 Refill Arlen archibald MERCHANDISE CLERK.CNM Work Phone: OB/Gynecology Comment on above: Med Change Request Start: 12-10-2021 End: 12-10-2021 Patient encounter procedure Sendy Crowell MERCHANDISE CLERK.HYDROGENATION STILL OPERATOR Work Phone: [facility] Comment on above: 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 (Primary Dx); Sjogrens Syndrome; Well adult exam; Rheumatoid arthritis of multiple sites with negative rheumatoid factor (HCC); Family history of breast cancer; Menopause Start: 12-10-2021 End: 12-10-2021 Patient encounter status Sendy Millerjose MERCHANDISE CLERK.HYDROGENATION STILL OPERATOR Work Phone: [facility] Start: 12-07-2021 Refill Kendra Millan MERCHANDISE CLERK.CNM Work Phone: OB/Gynecology Comment on above: Refill Request Start: 12-04-2021 End: 12-04-2021 Subsequent hospital visit by physician Diagnostic Mammo [facility] Mamm[facility] Start: 12-02-2021 Refill Sendy duffy MERCHANDISE CLERK.HYDROGENATION STILL OPERATOR Work Phone: [facility] Comment on above: Refill Request Start: 11-19-2021 Refill Kendra Millan MERCHANDISE CLERK.CNM Work Phone: OB/Gynecology Comment on above: Refill Request Start: 09-26-2021 Refill Kendra Millan APRN.CNM Work Phone: OB/Gynecology Comment on above: Refill Request Start: 06-26-2021 Refill hSashi mclaughlin MERCHANDISE CLERK.HYDROGENATION STILL OPERATOR Work Phone: [facility] Comment on above: Refill Request Procedures Date Procedure Procedure Detail Performing Clinician Start: 09-09-2023 Lipid 1996 panel - S leonardo or Plasma Jan George DO Work Phone: Start: 05-27-2023 Us breast uni real t donald with image limited Arlen Cedillo MERCHANDISE CLERK.CNM Work Phone: Start: 05-16-2023 Mri spinal canal lum bar w/o & w/contr matrl Jerome Eng MD Work Phone: Start: 02-13-2023 Ct lower extremity w /o contrast material Jan George DO Work Phone: Start: 07-09-2022 Lipid 1996 panel - S leonardo or Plasma Jan George DO Work Phone: Start: 07-03-2022 Dxa bone density kizzy dy 1/> sites axial skel Jan George DO Work Phone: Start: 05-16-2022 KEILY SCREENING W DOROTEO Je ar Millan MERCHANDISE CLERK.CNM Work Phone: Start: 05-16-2022 Mammography Mammograph y Coordinator Start: 12-10-2021 Adult depression screening assessment Sendyelliot Millerjose MERCHANDISE CLERK.HYDROGENATION STILL OPERATOR Work Phone: Start: 12-04-2021 KEILY DIAG W DOROTEO RT Honey ramon Susannah MERCHANDISE CLERK.HYDROGENATION STILL OPERATOR Work Phone: Start: 03-26-[address] [facility] MERCHANDISE CLERK.HYDROGENATION STILL OPERATOR Work Phone: Start: 09-16-2020 Adult depression screening assessment Shashi Susannah MERCHANDISE CLERK.HYDROGENATION STILL OPERATOR Work Phone: Plan of Treatment Date Care Activity Detail Author Start: 06-10-2032 Urine microalbumin profile [facility] Start: 09-08-2028 Lipid panel Lipid Screening [facility] Start: 07-10-2027 Lipid 1996 panel - S leonardo or Plasma Lipid Screening [facility] Start: 07-10-2027 Lip[address] Lipid Screening [facility] Start: 07-10-2027 LIPID SCREEN LIPID SCREEN [facility] Start: 06-03-2026 Diabetes Screening Diabetes Screenin [facility] Start: 03-28-2026 Diabetes Screening Diabetes Screenin g [facility] Start: 02-12-2026 Diabetes Screening Diabetes Screenin g [facility] Start: 01-06-2026 Diabetes Screening Diabetes Screenin g [facility] Start: 06-06-2025 DIABETES SCREEN DIABETES SCREEN [facility] Start: 06-06-2025 Diabetes Screening Diabetes Screenin g [facility] Start: 02-09-2025 HPV TESTING HPV TESTING [facility] Start: 02-09-2025 PAP TESTING PAP TESTING [facility] Start: 02-09-2025 Screening for malign ant neoplasm of cervix [facility] Start: 12-09-2024 Annual PCP Team Leather Coverer mick Disease Visit Annual PCP Team Chronic Disease Visit [facility] Start: 07-23-2024 Annual PCP Team Leather Coverer mick Disease Visit Annual PCP Team Chronic Disease Visit [facility] Start: 06-09-2024 End: 06-09-2024 Patient encounter procedure 06/09/2024 7:40 AM EDT Office Visit [facility] [place] [address] [place], [place] [id number] Jan George DO [address] [facility] [place] [address] Physical Family Medicine [place] Comment on above: Physical Start: 06-08-2024 Annual PCP Team Leather Coverer mick Disease Visit Annual PCP Team Chronic Disease Visit [facility] Start: 05-18-2024 End: 05-18-2024 Patient encounter procedure Mammogram Comment on above: Encounter for screen ing mammogram for breast cancer [Z12.31] Annual- Start: 05-17-2024 End: 05-17-2024 Patient encounter procedure Mammogram Comment on above: Encounter for screen ing mammogram for breast cancer [Z12.31] Annual- mamm w/ doroteo Start: 05-16-2024 Screening for malign ant neoplasm of breast Mammogram Screening [facility] Start: 03-05-2024 Annual PCP Team Leather Coverer mick Disease Visit Annual PCP Team Chronic Disease Visit [facility] Start: 02-13-2024 Annual PCP Team Leather Coverer mick Disease Visit Annual PCP Team Chronic Disease Visit [facility] Start: 02-09-2024 End: 05-10-2024 C reactive protein [Mass/volume] in Serum or Plasma C-REACTIVE PROTEIN Lab Routine Rheumatoid arthritis of multiple sites with negative rheumatoid factor (HCC) Expected: 02/09/2024, Expires: 05/10/2024 [facility] Work Phone: Comment on above: Expected: 02/09/2024 , Expires: 05/10/2024 Start: 02-09-2024 End: 05-10-2024 Cortisol [Mass/volume] in Serum or Plasma CORTISOL, SERUM Lab Routine Rheumatoid arthritis of multiple sites with negative rheumatoid factor (HCC) Expected: 02/09/2024, Expires: 05/10/2024 [facility] Comment on above: Expected: 02/09/2024 , Expires: 05/10/2024 Start: 02-09-2024 End: 05-10-2024 Hemoglobin A1c in Blood HEMOGLOBIN A1C Lab Routine Hypoglycemia Expected: 02/09/2024, Expires: 05/10/2024 [facility] Comment on above: Expected: 02/09/2024 , Expires: 05/10/2024 Start: 02-09-2024 End: 05-10-2024 Thyrotropin [Units/volume] in Serum or Plasma THYROID STIMULATING HORMONE Lab Routine Hypothyroidism due to acquired atrophy of thyroid Expected: 02/09/2024, Expires: 05/10/2024 [facility] Comment on above: Expected: 02/09/2024 , Expires: 05/10/2024 Start: 02-09-2024 End: 05-10-2024 Thyroxine (T4) free [Mass/volume] in Serum or Plasma T4 FREE/FREE THYROXINE Lab Routine Hypothyroidism due to acquired atrophy of thyroid Expected: 02/09/2024, Expires: 05/10/2024 [facility] Comment on above: Expected: 02/09/2024 , Expires: 05/10/2024 Start: 02-09-2024 End: 05-10-2024 Triiodothyronine (T3) Free [Mass/volume] in Serum or Plasma T3, FREE Lab Routine Hypothyroidism due to acquired atrophy of thyroid Expected: 02/09/2024, Expires: 05/10/2024 [facility] Comment on above: Expected: 02/09/2024 , Expires: 05/10/2024 Start: 02-09-2024 End: 02-09-2024 ambulatory 02/09/2024 7:15 AM EST Results Only [place] [facility] [address] [place] [address] [place] [facility] Start: 01-07-2024 Annual PCP Team Leather Coverer mick Disease Visit Annual PCP Team Chronic Disease Visit [facility] Start: 01-07-2024 Covid-19 Vaccine () Covid-19 Vaccine () [facility] Comment on above: Postponed from 11/29 (Declined at this time) Start: 01-07-2024 Pneumococcal vaccination [facility] Comment on above: Postponed from 09/10 (Declined at this time) Start: 12-10-2023 ANNUAL PCP TEAM EXPORT CLERK MICK DISEASE VISIT ANNUAL PCP TEAM CHRONIC DISEASE VISIT [facility] Start: 12-10-2023 End: 12-10-2023 Patient encounter procedure 12/10/2023 7:40 AM EDT Office Visit [facility] [place] [address] [facility] [place] [address] Jan Geogre DO [address] [place] [address] follow up [facility] [place] Comment on above: follow up Start: 12-08-2023 End: 12-08-2023 ambulatory 12/08/2023 2:00 PM EDT Results Only [place] [facility] [address] [place] [address] [facility] Start: 11-30-2023 Covid-19 Vaccine ( season) Covid-19 Vaccine ( season) [facility] Start: 11-30-2023 Covid-19 Vaccine ( season) Covid-19 Vaccine ( season) [facility] Start: 11-30-2023 Influenza vaccination Influenza Vacc ine (#1) [facility] Start: 11-28-2023 End: 02-27-2024 Thyrotropin [Units/volume] in Serum or Plasma THYROID STIMULATING HORMONE Lab Routine Hypothyroidism due to acquired atrophy of thyroid Expected: 11/28/2023, Expires: 02/27/2024 [facility] Work Phone: Comment on above: Expected: 11/28/2023 , Expires: 02/27/2024 Start: 11-28-2023 End: 02-27-2024 Thyroxine (T4) free [Mass/volume] in Serum or Plasma T4 FREE/FREE THYROXINE Lab Routine Hypothyroidism due to acquired atrophy of thyroid Expected: 11/28/2023, Expires: 02/27/2024 [facility] Comment on above: Expected: 11/28/2023 , Expires: 02/27/2024 Start: 11-28-2023 End: 02-27-2024 Triiodothyronine (T3) [Mass/volume] in Serum or Plasma T3 Lab Routine Hypothyroidism due to acquired atrophy of thyroid Expected: 11/28/2023, Expires: 02/27/2024 [facility] Comment on above: Expected: 11/28/2023 , Expires: 02/27/2024 Start: 09-28-2023 Influenza vaccination Influenza Vacc ine (#1) [facility] Comment on above: Postponed from 11/29 (Declined at this time) Start: 09-09-2023 End: 12-09-2023 CBC W Auto Differential panel - Blood CBC + DIFF Lab Routine Hypothyroidism due to acquired atrophy of thyroid Expected: 09/09/2023, Expires: 12/09/2023 [facility] Work Phone: Comment on above: Expected: 09/09/2023 , Expires: 12/09/2023 Start: 09-09-2023 End: 12-09-2023 Lipid 1996 panel - Serum or Plasma LIPID PANEL BASIC Lab Routine Dyslipidemia Expected: 09/09/2023, Expires: 12/09/2023 [facility] Work Phone: Comment on above: Expected: 09/09/2023 , Expires: 12/09/2023 Start: 09-09-2023 End: 12-09-2023 Thyrotropin [Units/volume] in Serum or Plasma TSH BLD Lab Routine Hypothyroidism due to acquired atrophy of thyroid Expected: 09/09/2023, Expires: 12/09/2023 [facility] Work Phone: Comment on above: Expected: 09/09/2023 , Expires: 12/09/2023 Start: 09-09-2023 End: 12-09-2023 Thyroxine (T4) free [Mass/volume] in Serum or Plasma T4 FREE/FREE THYROX Lab Routine Hypothyroidism due to acquired atrophy of thyroid Expected: 09/09/2023, Expires: 12/09/2023 [facility] Work Phone: Comment on above: Expected: 09/09/2023 , Expires: 12/09/2023 Start: 09-09-2023 End: 12-09-2023 Triiodothyronine (T3) Free [Mass/volume] in Serum or Plasma T3 FREE BLD Lab Routine Hypothyroidism due to acquired atrophy of thyroid Expected: 09/09/2023, Expires: 12/09/2023 [facility] Work Phone: Comment on above: Expected: 09/09/2023 , Expires: 12/09/2023 Start: 09-09-2023 End: 09-09-2023 ambulatory 09/09/2023 8:30 AM EDT Results Only [facility] [address] [place] [address] [facility] Start: 08-19-2023 End: 08-19-2023 ambulatory 08/19/2023 3:45 PM EDT OT/PT/Speech Visit [facility] [address] [place] [address] Andrae Ball, PT [address] [facility] [place] [place] [id number] M54.17 (ICD-10-CM) - Lumbosacral radiculopathy at L5 [facility] Comment on above: M54.17 (ICD-10-CM) - Lumbosacral radiculopathy at L5 Start: 08-04-2023 End: 08-04-2023 ambulatory 08/04/2023 5:15 PM EDT OT/PT/Speech Visit [facility] [address] [place] [address] Viridiana Martínez, ACCOUNTING CLERKS SUPERVISOR [address] [place] [address] M54.17 (ICD-10-CM) - Lumbosacral radiculopathy at L5 [facility] Comment on above: M54.17 (ICD-10-CM) - Lumbosacral radiculopathy at L5 Start: 07-24-2023 End: 07-24-2023 Patient encounter procedure 07/24/2023 7:40 AM EDT Office Visit [facility] [address] [facility] [place] [address] Sendy Cantrell APRN.HYDROGENATION STILL OPERATOR [address] [place] [address] Look at the red spot on my left foot- tick bite? [facility] [place] Comment on above: Look at the red spot on my left foot- tick bite? Start: 06-11-2023 ANNUAL PCP TEAM EXPORT CLERK MICK DISEASE VISIT ANNUAL PCP TEAM CHRONIC DISEASE VISIT [facility] Start: 05-16-2023 Mammography [facility] Start: 05-16-2023 Screening for malign ant neoplasm of breast Mammogram Screening [facility] Start: 03-31-2023 Behavioral Health Screening Behavioral Health Screening [facility] Start: 03-31-2023 Depression Assessment Depression Ass essment [facility] Start: 01-20-2023 End: 03-22-2023 25-hydroxyvitamin D3 [Mass/volume] in Serum or Plasma VITAMIN D 25 HYDROXY Lab Routine Vitamin D deficiency Expected: 01/20/2023, Expires: 03/22/2023 [facility] Work Phone: Comment on above: Expected: 01/20/2023 , Expires: 03/22/2023 Start: 01-20-2023 End: 03-22-2023 Cobalamin (Vitamin B12) [Mass/volume] in Serum or Plasma VITAMIN B12 BLOOD Lab Routine Elevated MCV Expected: 01/20/2023, Expires: 03/22/2023 [facility] Work Phone: Comment on above: Expected: 01/20/2023 , Expires: 03/22/2023 Start: 01-20-2023 End: 03-22-2023 Thyroglobulin Ab [Units/volume] in Serum or Plasma THYROGLOBULIN AB Lab Routine Hypothyroidism due to acquired atrophy of thyroid Expected: 01/20/2023, Expires: 03/22/2023 [facility] Work Phone: Comment on above: Expected: 01/20/2023 , Expires: 03/22/2023 Start: 01-20-2023 End: 03-22-2023 Thyrotropin [Units/volume] in Serum or Plasma TSH BLD Lab Routine Hypothyroidism due to acquired atrophy of thyroid Expected: 01/20/2023, Expires: 03/22/2023 [facility] Work Phone: Comment on above: Expected: 01/20/2023 , Expires: 03/22/2023 Start: 01-20-2023 End: 03-22-2023 Thyroxine (T4) free [Mass/volume] in Serum or Plasma T4 FREE/FREE THYROX Lab Routine Hypothyroidism due to acquired atrophy of thyroid Expected: 01/20/2023, Expires: 03/22/2023 [facility] Work Phone: Comment on above: Expected: 01/20/2023 , Expires: 03/22/2023 Start: 01-20-2023 End: 03-22-2023 Triiodothyronine (T3) Free [Mass/volume] in Serum or Plasma T3 FREE BLD Lab Routine Hypothyroidism due to acquired atrophy of thyroid Expected: 01/20/2023, Expires: 03/22/2023 [facility] Work Phone: Comment on above: Expected: 01/20/2023 , Expires: 03/22/2023 Start: 01-06-2023 End: 03-08-2023 C reactive protein [Mass/volume] in Serum or Plasma [facility] Work Phone: Comment on above: Expected: 01/06/2023 , Expires: 03/08/2023 Start: 01-06-2023 End: 03-08-2023 Comprehensive metabolic 2000 panel - Serum or Plasma [facility] Work Phone: Comment on above: Expected: 01/06/2023 , Expires: 03/08/2023 Start: 12-27-2022 LIPID SCREEN LIPID SCREEN [facility] Start: 12-10-2022 Adult depression scr eening assessment DEPRESSION SCREENING [facility] Start: 12-10-2022 ANNUAL PCP TEAM EXPORT CLERK MICK DISEASE VISIT ANNUAL PCP TEAM CHRONIC DISEASE VISIT [facility] Start: 12-10-2022 COLORECTAL CANCER SCREENING COLORECTAL CANCER SCREENING [facility] Comment on above: Postponed from 09/10 (Declined at this time) Start: 12-06-2022 DIABETES SCREEN DIABETES SCREEN [facility] Start: 11-29-2022 Influenza vaccination INFLUENZA (#1) [facility] Start: 09-27-2022 Influenza vaccination INFLUENZA (#1) [facility] Comment on above: Postponed from 11/29 (Declined at this time) Start: 07-11-2022 End: 09-10-2022 Hepatitis B virus surface Ab [Presence] in Serum HEP B SURF AB Lab Routine History of hepatitis B vaccination Expected: 07/11/2022, Expires: 09/10/2022 [facility] Work Phone: Comment on above: Expected: 07/11/2022 , Expires: 09/10/2022 Start: 07-11-2022 End: 09-10-2022 Lipid 1996 panel - Serum or Plasma LIPID PANEL BASIC Lab Routine Screening for lipid disorders Expected: 07/11/2022, Expires: 09/10/2022 [facility] Work Phone: Comment on above: Expected: 07/11/2022 , Expires: 09/10/2022 Start: 07-11-2022 End: 09-10-2022 Thyrotropin [Units/volume] in Serum or Plasma TSH BLD Lab Routine Hypothyroidism due to acquired atrophy of thyroid Expected: 07/11/2022, Expires: 09/10/2022 [facility] Work Phone: Comment on above: Expected: 07/11/2022 , Expires: 09/10/2022 Start: 07-11-2022 End: 09-10-2022 Thyroxine (T4) free [Mass/volume] in Serum or Plasma T4 FREE/FREE THYROX Lab Routine Hypothyroidism due to acquired atrophy of thyroid Expected: 07/11/2022, Expires: 09/10/2022 [facility] Work Phone: Comment on above: Expected: 07/11/2022 , Expires: 09/10/2022 Start: 07-11-2022 End: 09-10-2022 Triiodothyronine (T3) Free [Mass/volume] in Serum or Plasma T3 FREE BLD Lab Routine Hypothyroidism due to acquired atrophy of thyroid Expected: 07/11/2022, Expires: 09/10/2022 [facility] Work Phone: Comment on above: Expected: 07/11/2022 , Expires: 09/10/2022 Start: 05-18-2022 ANNUAL PCP TEAM EXPORT CLERK MICK DISEASE VISIT ANNUAL PCP TEAM CHRONIC DISEASE VISIT [facility] Start: 03-31-2022 DEPRESSION ASSESSMENT DEPRESSION ASS ESSMENT [facility] Start: 03-26-2022 Mammography MAMMOGRAM [facility] Start: 01-09-2022 End: 03-11-2022 Thyrotropin [Units/volume] in Serum or Plasma TSH BLD Lab Routine Hypothyroidism due to acquired atrophy of thyroid Expected: 01/09/2022, Expires: 03/11/2022 [facility] Work Phone: Comment on above: Expected: 01/09/2022 , Expires: 03/11/2022 Start: 01-09-2022 End: 03-11-2022 Triiodothyronine (T3) [Mass/volume] in Serum or Plasma T3 BLD Lab Routine Hypothyroidism due to acquired atrophy of thyroid Expected: 01/09/2022, Expires: 03/11/2022 [facility] Work Phone: Comment on above: Expected: 01/09/2022 , Expires: 03/11/2022 Start: 12-10-2021 End: 02-09-2022 Thyroxine (T4) free [Mass/volume] in Serum or Plasma T4 FREE/FREE THYROX Lab Routine Hypothyroidism due to acquired atrophy of thyroid Expected: 12/10/2021, Expires: 02/09/2022 [facility] Work Phone: Comment on above: Expected: 12/10/2021 , Expires: 02/09/2022 Start: 11-29-2021 Influenza vaccination INFLUENZA (#1) [facility] Start: 09-16-2021 Adult depression scr eening assessment DEPRESSION SCREENING [facility] Start: 05-19-2021 COVID-19 VACCINE (4 - Booster for Moderna series) COVID-19 VACCINE (4 - Booster for Moderna series) [facility] Start: 05-11-2021 COVID-19 VACCINE (4 - Booster for Moderna series) COVID-19 VACCINE (4 - Booster for Moderna series) [facility] Start: 04-13-2021 COVID-19 VACCINE (4 - Booster for Moderna series) COVID-19 VACCINE (4 - Booster for Moderna series) [facility] Start: 04-13-2021 COVID-19 VACCINE (4 - Moderna risk series) COVID-19 VACCINE (4 - Moderna risk series) [facility] Start: 04-02-2021 Urine microalbumin profile DTA P,TDAP,TD (2 - Td or Tdap) [facility] Start: 03-31-2021 DEPRESSION ASSESSMENT DEPRESSION ASS ESSMENT [facility] Start: 02-09-2021 Screening for malign ant neoplasm of cervix Cervical Cancer Screening [facility] Start: 09-10-2016 COLOGUARD (FIT-DNA) COLOGUARD (FIT-D NA) [facility] Start: 09-10-2016 Colonoscopy COLONOSCOPY [facility] Start: 09-10-2016 COLORECTAL CANCER SCREENING COLORECTAL CANCER SCREENING [facility] Start: 09-10-[address] COLONOGRAPHY [facility] Start: 09-10-2016 FECAL OCCULT BLOOD FECAL OCCULT BLOO D [facility] Start: 09-10-2016 Screening for malign ant neoplasm of colon [facility] Start: 09-10-2016 SIGMOIDOSCOPY SIGMOIDOSCOPY [facility] Start: 09-10-1990 SHINGRIX VACCINE (1 of 2) THAKKAR GRIX VACCINE (1 of 2) [facility] Start: 09-10-1989 Anxiety Screening Anxiety Screening [facility] Start: 09-10-1989 Depression Screening Depression Scre ening [facility] Start: 09-10-1989 HEPATITIS C SCREENING HEPATITIS C [facility] Start: 09-10-1989 Hepatitis C screening Hepatitis C [facility] Start: 09-10-1989 HIV SCREENING HIV SCREENING [facility] Start: 09-10-1989 HIV screening HIV Screening [facility] Start: 09-10-1977 PNEUMOCOCCAL (1 - PCV) PNEUMOCOCCAL (1 - PCV) [facility] Start: 09-10-1977 Pneumococcal vaccination Pneum ococcal Vaccine (1 of 2 - PCV) [facility] Start: 1971 HEPATITIS B (1 of 3 - 3-dose series) HEPATITIS B (1 of 3 - 3-dose series) [facility] Bacteria identified in Blood by Culture BLOOD CULTURE Microbiology Routine Left hip pain Fever, unspecified fever cause Fatigue, unspecified type Hip swelling, left Rash Macular erythematous rash 02/12/2023 11:11 AM EST [facility] Work Phone: End: 03-13-2024 CT HIP WO IVCON LEFT CT HIP WO IVCON LEFT Radiology STAT Left hip pain Fever, unspecified fever cause Hip swelling, left Rash Macular erythematous rash Localized swelling, mass, or lump of left lower extremity 1 Occurrences starting 02/12/2023 until 03/13/2024 [facility] Work Phone: Comment on above: 1 Occurrences starti ng 02/12/2023 until 03/13/2024 End: 06-14-2024 DBT Breast - bilateral screening KEILY SCREENING W DOROTEO Radiology Routine Encounter for gynecological examination (general) (routine) without abnormal findings Encounter for screening mammogram for breast cancer 1 Occurrences starting 05/16/2023 until 06/14/2024 [facility] Work Phone: Comment on above: 1 Occurrences starti ng 05/16/2023 until 06/14/2024 DBT Breast - bilater al screening KEILY SCREENING [facility]OR[facility] Radiology Routine Encounter for screening mammogram for malignant neoplasm of breast 05/16/2023 9:56 AM EST [facility] Work Phone: End: 07-10-2023 DXA-AXIAL SKELETON DXA-AXIAL SKELETON Radiology Routine Screening for osteoporosis 1 Occurrences starting 06/10/2022 until 07/10/2023 [facility] Work Phone: Comment on above: 1 Occurrences starti ng 06/10/2022 until 07/10/2023 End: 04-28-2023 KEILY SCREENING W DOROTEO KEILY SCREENING W DOROTEO Radiology Routine Breast density 1 Occurrences starting 03/29/2022 until 04/28/2023 [facility] Work Phone: Comment on above: 1 Occurrences starti ng 03/29/2022 until 04/28/2023 End: 06-17-2024 US Breast - left limited US BREAST LTD LEFT Radiology Routine Breast asymmetry in female 1 Occurrences starting 05/19/2023 until 06/17/2024 [facility] Work Phone: Comment on above: 1 Occurrences starti ng 05/19/2023 until 06/17/2024 End: 03-13-2024 XR HIP GENERAL 3V PELV/AP/LAT LEFT XR HIP GENERAL 3V PELV/AP/LAT LEFT Radiology Routine Left hip pain Fever, unspecified fever cause Hip swelling, left Rash Macular erythematous rash 1 Occurrences starting 02/12/2023 until 03/13/2024 [facility] Work Phone: Comment on above: 1 Occurrences starti ng 02/12/2023 until 03/13/2024 XR HIP GENERAL 3V PELV/AP/LAT LEFT XR HIP GENERAL 3V PELV/AP/LAT LEFT Radiology Routine Left hip pain Fever, unspecified fever cause Hip swelling, left Rash Macular erythematous rash 02/12/2023 11:03 AM EST [facility] Work Phone: [facility] Immunizations Immunization Date Immunization Notes Care Provider Nickie galvez 04-03-2023 influenza, seasonal, injectable Radha Fletcher MD Work Phone: [facility] 04-03-2023 influenza virus vaccine, unspecified formulation Jan George DO Work Phone: [facility] 06-10-2022 tetanus toxoid, redu ge diphtheria toxoid, and acellular pertussis vaccine, adsorbed Jan George DO Work Phone: [facility] Work Phone: 05-31-2022 zoster vaccine recombinant Jan George DO Work Phone: [facility] 03-08-2022 zoster vaccine recombinant Jan George DO Work Phone: [facility] 02-20-2022 Influenza, injectabl e, Madin [place] Canine Kidney, preservative free, quadrivalent Jan George DO Work Phone: [facility] 02-20-2022 influenza virus vaccine, unspecified formulation Jan George DO Work Phone: [facility] 03-21-2021 Influenza, injectabl e, Madin Jamia Canine Kidney, preservative free, quadrivalent Jan George DO Work Phone: [facility] 06-23-2020 COVID-19 vaccine, fu ll dose (MODERNA) Shashi Susannah MERCHANDISE CLERK.HYDROGENATION STILL OPERATOR Work Phone: [facility] 05-26-2020 COVID-19 vaccine, fu ll dose (MODERNA) Shashi Susannah MERCHANDISE CLERK.HYDROGENATION STILL OPERATOR Work Phone: [facility] 02-26-2020 Seasonal, quadrivale nt, recombinant, injectable influenza vaccine, preservative free Jan George DO Work Phone: [facility] 02-01-2019 influenza, injectabl e, quadrivalent, preservative free Jan George DO Work Phone: [facility] 02-01-2019 influenza, seasonal, injectable Shashi Susannah MERCHANDISE CLERK.HYDROGENATION STILL OPERATOR Work Phone: [facility] 01-31-2018 influenza, injectabl e, quadrivalent, contains preservative Shashi Susannah MERCHANDISE CLERK.HYDROGENATION STILL OPERATOR Work Phone: [facility] 02-01-2017 influenza, injectabl e, quadrivalent, contains preservative Shashi Susannah MERCHANDISE CLERK.HYDROGENATION STILL OPERATOR Work Phone: [facility] Work Phone: 12-25-2015 influenza, injectabl e, quadrivalent, contains preservative Shashi Susannah MERCHANDISE CLERK.HYDROGENATION STILL OPERATOR Work Phone: [facility] Work Phone: 02-11-2015 influenza, injectabl e, quadrivalent, contains preservative Shashi Susannah MERCHANDISE CLERK.HYDROGENATION STILL OPERATOR Work Phone: [facility] 02-17-2014 influenza, seasonal, injectable Shashi Susannah MERCHANDISE CLERK.HYDROGENATION STILL OPERATOR Work Phone: [facility] 01-09-2013 influenza virus vaccine, unspecified formulation Shashi Susannah MERCHANDISE CLERK.[facility] Work Phone: [facility] Work Phone: 12-28-2011 influenza virus vaccine, unspecified formulation Shashi Susannah MERCHANDISE CLERK.[facility] Work Phone: [facility] Work Phone: 04-02-2011 tetanus toxoid, redu ge diphtheria toxoid, and acellular pertussis vaccine, adsorbed Shashi Susannah MERCHANDISE CLERK.[facility] Work Phone: [facility] 01-05-2011 influenza virus vaccine, unspecified formulation Shashi Susannah MERCHANDISE CLERK.[facility] Work Phone: [facility] 12-30-2009 influenza virus vaccine, unspecified formulation Shashi Susannah MERCHANDISE CLERK.[facility] Work Phone: [facility] 02-21-2009 novel [id number], preservative-free, injectable Jan George DO Work Phone: [facility] 01-12-2009 influenza virus vaccine, unspecified formulation Shashi Susannah MERCHANDISE CLERK.[facility] Work Phone: [facility] Work Phone: 01-23-2008 influenza virus vaccine, unspecified formulation Shashi Susannah MERCHANDISE CLERK.HYDROGENATION STILL OPERATOR Work Phone: [facility] Work Phone: 03-04-2007 influenza virus vaccine, unspecified formulation Shashi Susannah MERCHANDISE CLERK.[facility] Work Phone: [facility] Work Phone: Payers Date Payer Category Payer Unknown MMO MMO [employer] [id number] 2006-Present [phone] [address] [place] [address] [facility] [id number] 2006 Unknown [id number] 2006 Unknown [id number] Social History Date Type Detail Facility Start: 04-02-2011 End: 03-29-2022 Tobacco smoking status NHIS Never smoked tobacco [facility] Start: 05-18-2021 End: 01-16-2024 Alcohol intake Current non-drinker of alcohol (finding) [facility] Start: 09-16-2020 End: 06-03-2022 History SDOH Alcohol Frequency 1 [facility] Start: 09-16-2020 End: 06-03-2022 History SDOH Social Connections Phone 5 [facility] Start: 09-16-2020 End: 06-03-2022 History SDOH Social Connections Get Together 3 [facility] Start: 09-16-2020 End: 06-03-2022 History SDOH Social Connections Meetings 2 [facility] Start: 09-16-2020 History SDOH Physica l Activity DPW 4 [facility] Start: 09-16-2020 Education 17 [facility] Start: 1970 Sex Assigned At Not on file [facility] Start: 05-02-2021 End: 12-10-2021 Exposure to SARS-CoV-2 (event) Not sure [facility] Start: 04-02-2011 End: 03-29-2022 Tobacco use and exposure Smokeless tobacco non-user [facility] Start: 06-03-2022 History SDOH Alcohol Std Drinks 0 [facility] Start: 04-24-2022 End: 06-03-2022 History of Social function [facility] Start: 04-24-2022 End: 06-03-2022 Social connection and isolation panel [facility] Do you belong to any clubs or organizations such as confucianism groups, unions, fraternal or athletic groups, or school groups? Yes [facility] Are you now , , , , never or living with a partner? [facility] How often to you hav e a drink containing alcohol? Never [facility] How many standard dr inks containing alcohol do you have on a typical day? Patient does not drink [facility] Do you feel stress - tense, restless, nervous, or anxious, or unable to sleep at night because your mind is troubled all the time - these days [OSQ] Not at all [facility] (I/We) worried wheth er (my/our) food would run out before (I/we) got money to buy more. Never true [facility] In the past 12 month s, was there a time when you were not able to pay the mortgage or rent on time? No [facility] Clinical Notes 05-27-2013 to 01-16-2024 Patient InstructionsClifford Rodríguez APRN.HYDROGENATION STILL OPERATOR - 01/16/2024 10:50 AM EDTGJan gómez, - 12/10/2023 7:49 AM EDTTelephone Encounter - Palma Hernandez LPN - 12/02/2023 12:39 PM EDT Note Date & Type Note Facility 01-16-2024 Instructions Clifford Rodríguez APRN.HYDROGENATION STILL OPERATOR - 01/16/2024 11:03 AM EDT Images from the original note were not included. Adult Sinusitis Patient Education What is Sinusitis? Sinusitis [[id number]-[id number]] is inflammation of the sinuses or swelling of the lining of the sinus cavity or nose. During an infection the sinuses become blocked with fluid causing swelling of the lining of the sinuses. Symptoms: (viral and bacterial infections) Stuffy nose Runny nose Postnasal drip Fever Toothache Headache Tiredness Cough Sore throat Face and head pressure and or pain Common causes: 98% of sinus infections are viral caused by viruses. Risk Factors of Sinusitis Include: Allergies, air pollution, indoor humidity and outdoor temperature changes, andstructural changes in the nose may contribute to sinus pain, pressure and congestion. When to get help? Temperature greater than 100.4 F Symptoms lasting more than 10 days or worsening symptoms greater than 7-10 days. If you do not improve or worsen after a course of antibiotics, you should be re-examined. Diagnosis and Treatment: Your healthcare provider will ask a number of questions about your symptoms and how long they have occurred. If symptoms of sinusitis persist greater than 10 days, it is possible you have a bacterial sinus infection and an antibiotic is prescribed. If it is viral, antibiotics will not help. You may be instructed to take [id number] medications for symptoms. including fever reducers acetaminophen or ibuprofen, nasal saline spray, cough and cold preparations and decongestants as prescribed by the physician, nurse practitioner or physician financial services assistant. Self-Care and Prevention: Rest Fluids for hydration Good hand washing Humidifier Avoid smoking and exposure to second hand smoke Avoid sick contacts documented in this encounter [facility] 01-16-2024 Note HNO ID: [id number] Author: CLIFFORD RODRÍGUEZ APRN.JORDAN Service: ? Author Type: Nurse Practitioner Type: Progress Notes Filed: 01/16/2024 11:05 Note Text: [employer] ONLINE NOTE . Verified Khloe's name and and explained my name, credentials and limitations of the Virtual visit requested today. Subjective Khloe Flores is a 53 year old year old who presents to [facility] today with complaint of Sinusitis x 3 weeks with green/yellow nasal mucous, facial pressure over left side of face> right and ear pressure. Has has seasonal allergies in the past as well. Is on medications which affect immune function. Denies fever, sore throat, cough, shortness of breath, chest pains, Nausea, vomiting, changes in bowel or bladder or skin rashes. Taking sudafed and using some nasal sprays/flonase. Aside from symptoms as described above, patient has no other complaints at this time. HPI: Review of Systems Constitutional: Negative for chills, fatigue and fever. HENT: Positive for congestion, ear pain (pressure), postnasal drip, rhinorrhea (thick green/yellow reported) and sinus pressure. Negative for trouble swallowing. Eyes: Negative for pain, discharge, redness and itching. Respiratory: Positive for cough (mild). Negative for chest tightness, shortness of breath and wheezing. Cardiovascular: Negative for chest pain, palpitations and leg swelling. Gastrointestinal: Negative for abdominal pain, diarrhea, nausea and vomiting. Genitourinary: Negative for dysuria, frequency and urgency. Musculoskeletal: Negative for myalgias. Skin: Negative for rash. Neurological: Positive for headaches (intermittent). Hematological: Negative for adenopathy. ALLERGIES Allergen Reactions Erythromycin Vomiting Floxin [Ofloxacin] Intolerance Guaifenesin Swelling lips swell Mycinette [Cetylpyr* Intolerance Sulfa (Sulfonamide * Swelling face Vesicare [Solifenac* Swelling tingle tongue Z-Pack [Azithromyci* Diarrhea, Vomiting Current Outpatient Medications on File Prior to Visit Medication Sig turmeric/turmeric ext/pepr ext (TURMERIC-TURMERIC EXT-PEPPER ORAL) Take by mouth. BERBERINE CHLORIDE ORAL Take by mouth. levothyroxine (LEVOXYL) 112 mcg tablet Take 1 tablet by mouth once daily. Take on empty stomach. For Thyroid. liothyronine (CYTOMEL) 5 mcg tablet Take 2 tablets by mouth daily in the late afternoon. montelukast (SINGULAIR) 10 mg tablet Take 1 tablet by mouth daily at bedtime. liothyronine (CYTOMEL) 5 mcg tablet Take 2 tablets by mouth daily in the late afternoon for 7 days. estradiol 10 mcg vaginal suppository maintenance pack (IMVEXXY) Use 1 Suppository vaginally two times a week. tofacitinib (XELJANZ XR) 11 mg tablet, extended release ondansetron orally disintegrating (ZOFRAN ODT) 4 mg disintegrating tablet Take 1 tablet by mouth every 8 hours as needed for nausea/vomiting. cyanocobalamin, vitamin B-12, (VITAMIN B12 ORAL) Take by mouth. traMADOL 50 mg ORAL tablet Take 1 tablet by mouth. @ bedtime methotrexate 2.5 mg ORAL tablet Take by mouth. Take 7 tablets a week calcium carbonate/vitamin d3(CALCIUM 600 + D(3) 600 MG (1,500)-200 UNIT TAB) Take one(1) tablet twice daily. FOLIC ACID 1 MG TAB Take one(1) tablet daily. esomeprazole (NEXIUM) 40 mg ORAL CpDR Take one(1) capsule daily. L-LYSINE 500 MG TAB 2 tabs daily THERAPEUTIC MULTIVITAMIN TAB Take one(1) tablet daily. TYLENOL ARTHRITIS 650 MG TAB two tabs twice daily PLAQUENIL 200 MG TAB Take one tablet daily with breakfast and 1/2 tablet in the evening with dinner No current facility-administered medications on file prior to visit. ACTIVE PROBLEM LIST Sjogrens Syndrome Abnormal Mammogram With Microcalcification Hypothyroidism Rheumatoid Arthritis Involving Multiple Sites (Hcc) Gerd (Gastroesophageal Reflux Disease) Family History of Breast Cancer Rheumatoid Arthritis of Multiple Sites With Negative Rheumatoid Factor (Hcc) Lumbosacral Radiculopathy At L5 Lumbosacral Radiculopathy At S1 Weakness of Left Lower Extremity Postmenopausal Vaginal Atrophy Encounter for Screening Mammogram for Breast Cancer Well Adult Exam Vitamin D Deficiency Lyme Disease Left Hip Pain Dyslipidemia Edema of Both Legs Hypoglycemia Social History Tobacco Use Smoking status: Never Smokeless tobacco: Never Vaping Use Vaping status: Never Used Substance Use Topics Alcohol use: No Drug use: No Objective LMP 07/05/2015 (Exact Date) Physical Exam Constitutional: General: She is not in acute distress. Appearance: Normal appearance. She is normal weight. She is not ill-appearing or toxic-appearing. HENT: Right Ear: Hearing normal. Left Ear: Hearing normal. Ears: Comments: Tenderness/fullness at tragus Nose: Right Sinus: Maxillary sinus tenderness and frontal sinus tenderness present. Left Sinus: Maxillary sinus tenderness and frontal sinus tenderness present. Cardiovas (more content not included)... [facility] 01-16-2024 History of Present illness Narrative Images from the original note were not included. [facility] ONLINE NOTE . Verified Khloe's name and and explained my name, credentials and limitations of the Virtual visit requested today. Subjective Khloe Flores is a 53 year old year old who presents to [facility] online today with complaint of Sinusitis x 3 weeks with green/yellow nasal mucous, facial pressure over left side of face> right and ear pressure. Has has seasonal allergies in the past as well. Is on medications which affect immune function. Denies fever, sore throat, cough, shortness of breath, chest pains, Nausea, vomiting, changes in bowel or bladder or skin rashes. Taking sudafed and using some nasal sprays/flonase. Aside from symptoms as described above, patient has no other complaints at this time. HPI: Review of Systems Constitutional: Negative for chills, fatigue and fever. HENT: Positive for congestion, ear pain (pressure), postnasal drip, rhinorrhea (thick green/yellow reported) and sinus pressure. Negative for trouble swallowing. Eyes: Negative for pain, discharge, redness and itching. Respiratory: Positive for cough (mild). Negative for chest tightness, shortness of breath and wheezing. Cardiovascular: Negative for chest pain, palpitations and leg swelling. Gastrointestinal: Negative for abdominal pain, diarrhea, nausea and vomiting. Genitourinary: Negative for dysuria, frequency and urgency. Musculoskeletal: Negative for myalgias. Skin: Negative for rash. Neurological: Positive for headaches (intermittent). Hematological: Negative for adenopathy. ALLERGIES Allergen Reactions Erythromycin Vomiting Floxin [Ofloxacin] Intolerance Guaifenesin Swelling lips swell Mycinette [Cetylpyr* Intolerance Sulfa (Sulfonamide * Swelling face Vesicare [Solifenac* Swelling tingle tongue Z-Pack [Azithromyci* Diarrhea, Vomiting Current Outpatient Medications on File Prior to Visit Medication Sig turmeric/turmeric ext/pepr ext (TURMERIC-TURMERIC EXT-PEPPER ORAL) Take by mouth. BERBERINE CHLORIDE ORAL Take by mouth. levothyroxine (LEVOXYL) 112 mcg tablet Take 1 tablet by mouth once daily. Take on empty stomach. For Thyroid. liothyronine (CYTOMEL) 5 mcg tablet Take 2 tablets by mouth daily in the late afternoon. montelukast (SINGULAIR) 10 mg tablet Take 1 tablet by mouth daily at bedtime. liothyronine (CYTOMEL) 5 mcg tablet Take 2 tablets by mouth daily in the late afternoon for 7 days. estradiol 10 mcg vaginal suppository maintenance pack (IMVEXXY) Use 1 Suppository vaginally two times a week. tofacitinib (XELJANZ XR) 11 mg tablet, extended release ondansetron orally disintegrating (ZOFRAN ODT) 4 mg disintegrating tablet Take 1 tablet by mouth every 8 hours as needed for nausea/vomiting. cyanocobalamin, vitamin B-12, (VITAMIN B12 ORAL) Take by mouth. traMADOL 50 mg ORAL tablet Take 1 tablet by mouth. @ bedtime methotrexate 2.5 mg ORAL tablet Take by mouth. Take 7 tablets a week calcium carbonate/vitamin d3(CALCIUM 600 + D(3) 600 MG (1,500)-200 UNIT TAB) Take one(1) tablet twice daily. FOLIC ACID 1 MG TAB Take one(1) tablet daily. esomeprazole (NEXIUM) 40 mg ORAL CpDR Take one(1) capsule daily. L-LYSINE 500 MG TAB 2 tabs daily THERAPEUTIC MULTIVITAMIN TAB Take one(1) tablet daily. TYLENOL ARTHRITIS 650 MG TAB two tabs twice daily PLAQUENIL 200 MG TAB Take one tablet daily with breakfast and 1/2 tablet in the evening with dinner No current facility-administered medications on file prior to visit. ACTIVE PROBLEM LIST Sjogrens Syndrome Abnormal Mammogram With Microcalcification Hypothyroidism Rheumatoid Arthritis Involving Multiple Sites (Hcc) Gerd (Gastroesophageal Reflux Disease) Family History of Breast Cancer Rheumatoid Arthritis of Multiple Sites With Negative Rheumatoid Factor (Hcc) Lumbosacral Radiculopathy At L5 Lumbosacral Radiculopathy At S1 Weakness of Left Lower Extremity Postmenopausal Vaginal Atrophy Encounter for Screening Mammogram for Breast Cancer Well Adult Exam Vitamin D Deficiency Lyme Disease Left Hip Pain Dyslipidemia Edema of Both Legs Hypoglycemia Social History Tobacco Use Smoking status: Never Smokeless tobacco: Never Vaping Use Vaping status: Never Used Substance Use Topics Alcohol use: No Drug use: No Objective LMP 07/05/2015 (Exact Date) Physical Exam Constitutional: General: She is not in acute distress. Appearance: Normal appearance. She is normal weight. She is not ill-appearing or toxic-appearing. HENT: Right Ear: Hearing normal. Left Ear: Hearing normal. Ears: Comments: Tenderness/fullness at tragus Nose: Right Sinus: Maxillary sinus tenderness and frontal sinus tenderness present. Left Sinus: Maxillary sinus tenderness and frontal sinus tenderness present. Cardiovascular: Rate and Rhythm: Normal rate and regular rhythm. Pulmonary: Effort: Pulmonary effort is normal. Breath sounds: Normal breath sounds. Abdominal: Palpations: Abdomen is soft. Tenderness: There is no abdominal tenderness. Skin: General: Skin is warm and dry. Capillary Refill: Capillary refill takes less than 2 seconds. Neurological: General: No focal deficit present. Mental Status: She is alert and oriented to person, place, and time. Assessment/Plan 1. Bacterial sinusitis - amoxicillin-clavulanate potassium (AUGMENTIN) 875-125 mg per tablet; Take 1 tablet by mouth two times a day for 7 days. Dispense: 14 tablet; Refill: 0 2. Antibiotic-induced yeast infection - fluconazole (DIFLUCAN) 150 mg tablet; Take one if yeast develops then may repeat in three days Dispense: 2 tablet; Refill: 0 ENCOURAGED SALINE AND FLONASE TWICE DAILY Education on stopping Methotrexate, Plaquenil and other medications during treatment. Khloe verbalized understanding and agreement with plan to pause these medications. Patient advised to drink fluids, get rest and take all meds as prescribed. Patient given educational materials - see instructions. Discussed use, benefit, and side effects of prescribed medications. All questions answered. Patient advised to follow up with PCP in one week, or sooner if symptoms worsen or persist. If symptoms become severe- GO TO ED. Patient verbalized understanding and agreeable with treatment plan. Clifford Rodríguez APRN, CNP 01/16/2024 10:50 AM documented in this encounter [facility] 12-10-2023 Note HNO ID: [id number] Author: JAN GEORGE, DO Service: ? Author Type: Physician Type: Progress Notes Filed: 12/10/2023 08:20 Note Text: CC: Khloe Flores is a 53 year old female who presents to the office for follow up HPI: Hypothyroidism, taking levothyroxine 100 mcg a day, has some fatigue still and edema that is mild, left >right ankle. Better in the AM, worse at night. RA, has been taking Turmeric supplement 1400 mg at supper. Has been eating plant based diet. Sjogren's syndrome. 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 No date: 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 Comment: Sjogrens Syndrome No date: Unspecified hypothyroidism PAST SURGICAL HISTORY 86,84: ARTHROSCOPY KNEE DIAGNOSTIC W/WO SYNOVIAL BX SPX; Left Comment: Arthroscopy, knee 2014: BIOPSY OF BREAST Comment: microcalcifications No date: COLONOSCOPY No date: EGD 02/27/2005: LAPS SURG CHOLECYSTECTOMY W/CHOLANGIOGRAPHY 08/01/2015: NOVASURE Comment: HYSTEROSCOPY, ABLATION ENDOMETRIAL NOVASURE No date: PAST SURGICAL HISTORY OF Comment: MOLE REMOVAL ON BACK X 2- benign No date: PAST SURGICAL HISTORY OF Comment: wisdom teeth Current Outpatient Medications Medication Sig liothyronine (CYTOMEL) 5 mcg tablet Take 2 tablets by mouth daily in the late afternoon. montelukast (SINGULAIR) 10 mg tablet Take 1 tablet by mouth daily at bedtime. levothyroxine (LEVOXYL) 100 mcg tablet Take 1 tablet by mouth once daily. Take on empty stomach. For Thyroid. liothyronine (CYTOMEL) 5 mcg tablet Take 2 tablets by mouth daily in the late afternoon for 7 days. estradiol 10 mcg vaginal suppository maintenance pack (IMVEXXY) Use 1 Suppository vaginally two times a week. tofacitinib (XELJANZ XR) 11 mg tablet, extended release ondansetron orally disintegrating (ZOFRAN ODT) 4 mg disintegrating tablet Take 1 tablet by mouth every 8 hours as needed for nausea/vomiting. levothyroxine (LEVOXYL) 100 mcg tablet Take 1 tablet by mouth daily before breakfast. Take on empty stomach. For Thyroid. (Patient not taking: Reported on 05/16/2023) cyanocobalamin, vitamin B-12, (VITAMIN B12 ORAL) Take by mouth. traMADOL 50 mg ORAL tablet Take 1 tablet by mouth. @ bedtime methotrexate 2.5 mg ORAL tablet Take by mouth. Take 7 tablets a week calcium carbonate/vitamin d3(CALCIUM 600 + D(3) 600 MG (1,500)-200 UNIT TAB) Take one(1) tablet twice daily. FOLIC ACID 1 MG TAB Take one(1) tablet daily. esomeprazole (NEXIUM) 40 mg ORAL CpDR Take one(1) capsule daily. L-LYSINE 500 MG TAB 2 tabs daily THERAPEUTIC MULTIVITAMIN TAB Take one(1) tablet daily. TYLENOL ARTHRITIS 650 MG TAB two tabs twice daily PLAQUENIL 200 MG TAB Take one tablet daily with breakfast and 1/2 tablet in the evening with dinner No current facility-administered medications for this visit. ALLERGIES Allergen Reactions Erythromycin Vomiting Floxin [Ofloxacin] Intolerance Guaifenesin Swelling lips swell Mycinette [Cetylpyr* Intolerance Sulfa (Sulfonamide * Swelling face Vesicare [Solifenac* Swelling tingle tongue Z-Pack [Azithromyci* Diarrhea, Vomiting Social History Tobacco Use Smoking status: Never Smokeless tobacco: Never Vaping Use Vaping status: Never Used Substance Use Topics Alcohol use: No Drug use: No ROS See HPI PE: BP 136/80 Pulse 76 Temp (Src) 98.3 (Right Tympanic) Resp 16 Wt 141 lb (64.0kg) LMP 07/05/2015 Gen: AANDOX3, NAD, non-toxic appearing HEENT: PERRLA, EOMs intact b/l, nares without drainage, pharynx without erythema, exudate, lesions, or drainage. Uvula midline. Neck: No LAD, no thyromegaly, no meningismus. CV: RRR, no murmur Lungs: CTA b/l, no wheezing Skin: No rashes, lesions, or wounds on exposed skin. Trace edema left >right ankle, non pitting Normal pulses ASSESSMENT/PLAN: 1. Hypothyroidism due to acquired atrophy of thyroid - ICD9: 244.8, 246.8, ICD10: E03.4 (primary diagnosis) - Instructed patient on importance of taking on an empty stomach either first thing in the morning or at bedtime. - Increase Synthroid dose to 0.112 mg - THYROID STIMULATING HORMONE - T4 FREE/FREE THYROXINE - T3, FREE - LEVOTHYROXINE 112 MCG TABLET 2. Rheumatoid arthritis of multiple sites with negative rheumatoid factor (HCC) - ICD9: 714.0, ICD10: M06.09 Recheck labs F/u (more content not included)... [facility] 12-10-2023 History of Present illness Narrative CC: Khloe Flores is a 53 year old female who presents to the office for follow up HPI: Hypothyroidism, taking levothyroxine 100 mcg a day, has some fatigue still and edema that is mild, left >right ankle. Better in the AM, worse at night. RA, has been taking Turmeric supplement 1400 mg at supper. Has been eating plant based diet. Sjogren's syndrome. 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 No date: 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 Comment: Sjogrens Syndrome No date: Unspecified hypothyroidism PAST SURGICAL HISTORY 86,84: ARTHROSCOPY KNEE DIAGNOSTIC W/WO SYNOVIAL BX SPX; Left Comment: Arthroscopy, knee 2013: BIOPSY OF BREAST Comment: microcalcifications No date: COLONOSCOPY No date: EGD 02/27/2005: LAPS SURG CHOLECYSTECTOMY W/CHOLANGIOGRAPHY 08/01/2015: NOVASURE Comment: HYSTEROSCOPY, ABLATION ENDOMETRIAL NOVASURE No date: PAST SURGICAL HISTORY OF Comment: MOLE REMOVAL ON BACK X 2- benign No date: PAST SURGICAL HISTORY OF Comment: wisdom teeth Current Outpatient Medications Medication Sig liothyronine (CYTOMEL) 5 mcg tablet Take 2 tablets by mouth daily in the late afternoon. montelukast (SINGULAIR) 10 mg tablet Take 1 tablet by mouth daily at bedtime. levothyroxine (LEVOXYL) 100 mcg tablet Take 1 tablet by mouth once daily. Take on empty stomach. For Thyroid. liothyronine (CYTOMEL) 5 mcg tablet Take 2 tablets by mouth daily in the late afternoon for 7 days. estradiol 10 mcg vaginal suppository maintenance pack (IMVEXXY) Use 1 Suppository vaginally two times a week. tofacitinib (XELJANZ XR) 11 mg tablet, extended release ondansetron orally disintegrating (ZOFRAN ODT) 4 mg disintegrating tablet Take 1 tablet by mouth every 8 hours as needed for nausea/vomiting. levothyroxine (LEVOXYL) 100 mcg tablet Take 1 tablet by mouth daily before breakfast. Take on empty stomach. For Thyroid. (Patient not taking: Reported on 05/16/2023) cyanocobalamin, vitamin B-12, (VITAMIN B12 ORAL) Take by mouth. traMADOL 50 mg ORAL tablet Take 1 tablet by mouth. @ bedtime methotrexate 2.5 mg ORAL tablet Take by mouth. Take 7 tablets a week calcium carbonate/vitamin d3(CALCIUM 600 + D(3) 600 MG (1,500)-200 UNIT TAB) Take one(1) tablet twice daily. FOLIC ACID 1 MG TAB Take one(1) tablet daily. esomeprazole (NEXIUM) 40 mg ORAL CpDR Take one(1) capsule daily. L-LYSINE 500 MG TAB 2 tabs daily THERAPEUTIC MULTIVITAMIN TAB Take one(1) tablet daily. TYLENOL ARTHRITIS 650 MG TAB two tabs twice daily PLAQUENIL 200 MG TAB Take one tablet daily with breakfast and 1/2 tablet in the evening with dinner No current facility-administered medications for this visit. ALLERGIES Allergen Reactions Erythromycin Vomiting Floxin [Ofloxacin] Intolerance Guaifenesin Swelling lips swell Mycinette [Cetylpyr* Intolerance Sulfa (Sulfonamide * Swelling face Vesicare [Solifenac* Swelling tingle tongue Z-Pack [Azithromyci* Diarrhea, Vomiting Social History Tobacco Use Smoking status: Never Smokeless tobacco: Never Vaping Use Vaping status: Never Used Substance Use Topics Alcohol use: No Drug use: No ROS See HPI PE: BP 136/80 Pulse 76 Temp (Src) 98.3 (Right Tympanic) Resp 16 Wt 141 lb (64.0kg) LMP 07/05/2015 Gen: A&OX3, NAD, non-toxic appearing HEENT: PERRLA, EOMs intact b/l, nares without drainage, pharynx without erythema, exudate, lesions, or drainage. Uvula midline. Neck: No LAD, no thyromegaly, no meningismus. CV: RRR, no murmur Lungs: CTA b/l, no wheezing Skin: No rashes, lesions, or wounds on exposed skin. Trace edema left >right ankle, non pitting Normal pulses ASSESSMENT/PLAN: 1. Hypothyroidism due to acquired atrophy of thyroid - ICD9: 244.8, 246.8, ICD10: E03.4 (primary diagnosis) - Instructed patient on importance of taking on an empty stomach either first thing in the morning or at bedtime. - Increase Synthroid dose to 0.112 mg - THYROID STIMULATING HORMONE - T4 FREE/FREE THYROXINE - T3, FREE - LEVOTHYROXINE 112 MCG TABLET 2. Rheumatoid arthritis of multiple sites with negative rheumatoid factor (HCC) - ICD9: 714.0, ICD10: M06.09 Recheck labs F/u with Dr. Wells - C-REACTIVE PROTEIN - CORTISOL, SERUM 3. Hypoglycemia - ICD9: 251.2, ICD10: E16.2 Labs as ordered. - HEMOGLOBIN A1C 4. Edema of both legs - ICD9: 782.3, ICD10: R60.0 Likely related to inflammation Increase dose of turmeric Jan George DO Return if no improvement. Follow up with Jan George DO. To ER if develops chest pain, shortness of breath. Discussed risks, benefits, alternatives, and potential side effects of medications. Patient/Guardian expressed understanding and agreed with the plan. See patient instructions. Jan George DO [address] [place] [address] documented in this encounter [facility] 12-02-2023 Telephone encounter Note Patient has been identified by name and date of : Patient phones for refill(s): Requested Prescriptions Pending Prescriptions Disp Refills liothyronine (CYTOMEL) 5 mcg tablet 180 tablet 1 Sig: Take 2 tablets by mouth daily in the late afternoon. Date of last office visit in primary care: 07/24/2023 Date of next office visit in primary care: 12/10/2023 Please advise. Thank you. Palma Hernandez LPN. [facility] 12-02-2023 Miscellaneous Notes Patient has been identified by name and date of : Patient phones for refill(s): Requested Prescriptions Pending Prescriptions Disp Refills liothyronine (CYTOMEL) 5 mcg tablet 180 tablet 1 Sig: Take 2 tablets by mouth daily in the late afternoon. Date of last office visit in primary care: 07/24/2023 Date of next office visit in primary care: 12/10/2023 Please advise. Thank you. Palma Hernandez LPN. documented in this encounter [facility] 11-28-2023 Note Addended by: SHASHI AG on: 11/28/2023 02:29 PM Modules accepted: Orders [facility] 11-28-2023 Telephone encounter Note Lab orders placed. Shashi Rios APRN.HYDROGENATION STILL OPERATOR [facility] 11-28-2023 Miscellaneous Notes Addended by: SHASHI RIOS on: 11/28/2023 02:29 PM Modules accepted: Orders Lab orders placed. Shashi Rios APRN.HYDROGENATION STILL OPERATOR See pt reply regarding labs. Tsering Frausto MA Turned into TE Tsering Frausto MA documented in this encounter [facility] 11-28-2023 Telephone encounter Note See pt reply regarding labs. Tsering Frausto MA [facility] 11-28-2023 Telephone encounter Note Turned into TE Tsering Frausto MA [facility] 11-13-2023 Telephone encounter Note The patient has been identified by name and date of : Yes Caregiver verified no other encounters exist for this prescription request: Yes Caregiver confirmed with patient/requestor that no other refills are due, in the near future, with this provider at this time: Yes The last office visit in the department: 07/24/2023 Does the patient have a future office visit with this provider/department: Yes 12/10/2023 Requested Prescriptions Pending Prescriptions Disp Refills montelukast (SINGULAIR) 10 mg tablet 90 tablet 2 Sig: Take 1 tablet by mouth daily at bedtime. Mayra Arora RN November 13, 2023 3:29 PM [facility] 11-13-2023 Miscellaneous Notes The patient has been identified by name and date of : Yes Caregiver verified no other encounters exist for this prescription request: Yes Caregiver confirmed with patient/requestor that no other refills are due, in the near future, with this provider at this time: Yes The last office visit in the department: 07/24/2023 Does the patient have a future office visit with this provider/department: Yes 12/10/2023 Requested Prescriptions Pending Prescriptions Disp Refills montelukast (SINGULAIR) 10 mg tablet 90 tablet 2 Sig: Take 1 tablet by mouth daily at bedtime. Mayra Arora RN November 13, 2023 3:29 PM documented in this encounter [facility] 10-17-2023 Telephone encounter Note The patient has been identified by name and date of : Yes Caregiver verified no other encounters exist for this prescription request: Yes Caregiver confirmed with patient/requestor that no other refills are due, in the near future, with this provider at this time: Yes The last office visit in the department: 07/24/2023 Does the patient have a future office visit with this provider/department: Yes 12/10/2023 Requested Prescriptions Pending Prescriptions Disp Refills levothyroxine (LEVOXYL) 100 mcg tablet 90 tablet 1 Sig: Take 1 tablet by mouth once daily. Take on empty stomach. For Thyroid. Rose Isabel RN October 17, 2023 8:54 AM [facility] 10-17-2023 Miscellaneous Notes The patient has been identified by name and date of : Yes Caregiver verified no other encounters exist for this prescription request: Yes Caregiver confirmed with patient/requestor that no other refills are due, in the near future, with this provider at this time: Yes The last office visit in the department: 07/24/2023 Does the patient have a future office visit with this provider/department: Yes 12/10/2023 Requested Prescriptions Pending Prescriptions Disp Refills levothyroxine (LEVOXYL) 100 mcg tablet 90 tablet 1 Sig: Take 1 tablet by mouth once daily. Take on empty stomach. For Thyroid. Rose Isabel RN October 17, 2023 8:54 AM documented in this encounter [facility] 09-23-2023 Telephone encounter Note Phoned patient and given provider's message below with verbalized understanding. Patient agreeable. [facility] 09-23-2023 Miscellaneous Notes Phoned patient and given provider's message below with verbalized understanding. Patient agreeable. Please keep dosing the same Jan George DO Phoned patient and went over results from Dr George with understanding. Patient questioning her T3 results stayed the same at 3.4 even after increasing her Cytomel to 2 tablets in the afternoon. Asking if PCP wants her dose increased? Please inform patient that overall labs are stable Jan George DO documented in this encounter [facility] 09-23-2023 Telephone encounter Note Please keep dosing the same Jan George DO [facility] 09-18-2023 Telephone encounter Note Phoned patient and went over results from Dr George with understanding. Patient questioning her T3 results stayed the same at 3.4 even after increasing her Cytomel to 2 tablets in the afternoon. Asking if PCP wants her dose increased? [facility] 09-17-2023 Telephone encounter Note Please inform patient that overall labs are stable Jan George DO [facility] 08-19-2023 History of Present illness Narrative Program_ID:[id number] Access Code: [email or web address] URL: [email or web address] Date: 08-19-2023 Prepared By: Dayday Mortensen Program Notes Exercises - Sidelying Hip Abduction - 1 x daily - 7 x weekly - 3 sets - 10 reps - Sidelying Hip Circles - 1 x daily - 7 x weekly - 3 sets - 10 reps - Figure 4 Bridge - 1 x daily - 7 x weekly - 3 sets - 10 reps - Single Leg Heel Raise with Counter Support - 1 x daily - 7 x weekly - 3 sets - 10 reps - Single Leg Stance - 1 x daily - 7 x weekly - 3 sets - reps - Side Stepping with Resistance at Feet - 1 x daily - 7 x weekly - 3 sets - reps Images from the original note were not included. Episode Visit Count: 9 Therapist That Will Accept/Oversee The Plan Of Care: Andrae Ball PT Start of Care Date: 05/05/23 Onset Date: 02/12/23 Patient Identified by Name and Date of : Yes REHABILITATION AND SPORTS THERAPY PHYSICAL THERAPY DISCONTINUANCE OF CARE PLAN OF CARE UPDATE: Assessment: Khloe Flores is discontinued from Physical Therapy services due to goal achievement and maximal benefit.. Patient was seen for 9 visits from Start of Care Date: 05/05/23 to 08/19/2023 and treatment included: Therapeutic exercise and Manual therapy. Updated 08/19/2023 Goals for Episode of Care: created on 05/05/23 through 07/09/2023 [place] in home exercise program.-MET Patient will decrease pain rating by 2 points to meet minimal clinical important difference for numeric pain rating scale.--MET Patient will demonstrate increase in LLE strength to at least 4+/5 during manual muscle testing in order to improve function for moderate to heavy functional tasks.--MET Patient will perform >5 full excursion SL heel raises on the left to demonstrate increase PF strength.--MET Patient will increase flexibility of left hamstrings to equal unaffected extremity/side to improve mechanics.--MET Patient will walk >1 mile in 30 minutes to progress toward prior fitness Level.--MET Improved LLE sensation.--MET Normal gait with no apparent foot drop, and improved toe off.--MET Patient Goals: Be able to walk like she used to SUBJECTIVE: Feels the stability of the ankle is better now. Can wear sandals with arch support now. Can do the exercises and walk now. Has a different type of tingling . It is not painful. Pain: Pain Pain Level: 0 Pain Location: Foot - Left, Leg - Left PROMIS Scales 08/16/2023 07/20/2023 06/21/2023 Higher is Better Phys Func - Score 44 (mild dysfunction) 41 (mild dysfunction) 44 (mild dysfunction) Phys Func - Percentile 27 18 27 Self-Eff Symptom - Score 56 (Average) 49 (Average) Self-Eff Symptom - Percentile 73 46 T-scores: mean of general population = 50. 5 points is clinically meaningfully difference Percentiles provide an indication of how the patient's score ranks in relation to the general population. Higher percentile rankings indicate better function/quality of life. 50th percentile is the average of the general population and indicates half of respondents had a worse score. OBJECTIVE MEASURES WITH LEVEL OF FUNCTION: Posture / Alignment Posture: Forward head, Rounded shoulders Lumbar Spine AROM Lumbar Flexion: Normal Lumbar Extension: Normal Lumbar R Side-Bend: Normal Lumbar L Side-Bend: Normal Lumbar R Rotation: Normal Lumbar L Rotation: Normal LE AROM R LE AROM: WNL L LE AROM: WNL LE Strength R LE Strength: Grossly 5/5 L LE Strength: Grossly 5/5 L Ankle Dorsiflexion (L4): 5/5 L Ankle Plantar Flexion: 5/5 L Ankle Inversion: 5/5 L Ankle Eversion: 5/5 Gait WNL HS flexibility WNL bilaterally TREATMENT: Therapeutic Exercise: 1: All objective measures taken this session 2: Resisted side-stepping BTB to fatigue x 1 3: SL heel raise x 5 reps 4: *Discussed finalized HEP Skilled Intervention: Patient was educated in proper exercise technique and purpose for exercises. Provided written instruction for home exercise program to facilitate proper performance and compliance. Correct performance of therapeutic exercises was facilitated with verbal and visual cuing. Billing Therapeutic Exercise Treatment Minutes: 39 Skilled Treatment Time Minutes (timed and untimed codes): 39 Total Session Time (minutes): 39 Session Start Time : 1538 Session Stop Time : 1617 Andrae Ball PT documented in this encounter [facility] 08-19-2023 Note HNO ID: [id number] Author: ANDRAE BALL PT Service: ? Author Type: Physical Therapist Type: Progress Notes Filed: 08/19/2023 16:19 Note Text: Episode Visit Count: 9 Therapist That Will Accept/Oversee The Plan Of Care: Andrae Ball PT Start of Care Date: 05/05/23 Onset Date: 02/12/23 Patient Identified by Name and Date of : Yes REHABILITATION AND SPORTS THERAPY PHYSICAL THERAPY DISCONTINUANCE OF CARE PLAN OF CARE UPDATE: Assessment: Khloe Flores is discontinued from Physical Therapy services due to goal achievement and maximal benefit.. Patient was seen for 9 visits from Start of Care Date: 05/05/23 to 08/19/2023 and treatment included: Therapeutic exercise and Manual therapy. Updated 08/19/2023 Goals for Episode of Care: created on 05/05/23 through 07/09/2023 [place] in home exercise program.-MET Patient will decrease pain rating by 2 points to meet minimal clinical important difference for numeric pain rating scale.--MET Patient will demonstrate increase in LLE strength to at least 4+/5 during manual muscle testing in order to improve function for moderate to heavy functional tasks.--MET Patient will perform >5 full excursion SL heel raises on the left to demonstrate increase PF strength.--MET Patient will increase flexibility of left hamstrings to equal unaffected extremity/side to improve mechanics.--MET Patient will walk >1 mile in 30 minutes to progress toward prior fitness Level.--MET Improved LLE sensation.--MET Normal gait with no apparent foot drop, and improved toe off.--MET Patient Goals: Be able to walk like she used to SUBJECTIVE: Feels the stability of the ankle is better now. Can wear sandals with arch support now. Can do the exercises and walk now. Has a different type of tingling . It is not painful. Pain: Pain Pain Level: 0 Pain Location: Foot - Left, Leg - Left PROMIS Scales 08/16/2023 07/20/2023 06/21/2023 Higher is Better Phys Func - Score 44 (mild dysfunction) 41 (mild dysfunction) 44 (mild dysfunction) Phys Func - Percentile 27 18 27 Self-Eff Symptom - Score 56 (Average) 49 (Average) Self-Eff Symptom - Percentile 73 46 T-scores: mean of general population = 50. 5 points is clinically meaningfully difference Percentiles provide an indication of how the patient's score ranks in relation to the general population. Higher percentile rankings indicate better function/quality of life. 50th percentile is the average of the general population and indicates half of respondents had a worse score. OBJECTIVE MEASURES WITH LEVEL OF FUNCTION: Posture / Alignment Posture: Forward head, Rounded shoulders Lumbar Spine AROM Lumbar Flexion: Normal Lumbar Extension: Normal Lumbar R Side-Bend: Normal Lumbar L Side-Bend: Normal Lumbar R Rotation: Normal Lumbar L Rotation: Normal LE AROM R LE AROM: WNL L LE AROM: WNL LE Strength R LE Strength: Grossly 5/5 L LE Strength: Grossly 5/5 L Ankle Dorsiflexion (L4): 5/5 L Ankle Plantar Flexion: 5/5 L Ankle Inversion: 5/5 L Ankle Eversion: 5/5 Gait WNL HS flexibility WNL bilaterally TREATMENT: Therapeutic Exercise: 1: All objective measures taken this session 2: Resisted side-stepping BTB to fatigue x 1 3: SL heel raise x 5 reps 4: *Discussed finalized HEP Skilled Intervention: Patient was educated in proper exercise technique and purpose for exercises. Provided written instruction for home exercise program to facilitate proper performance and compliance. Correct performance of therapeutic exercises was facilitated with verbal and visual cuing. Billing Therapeutic Exercise Treatment Minutes: 39 Skilled Treatment Time Minutes (timed and untimed codes): 39 Total Session Time (minutes): 39 Session Start Time : 1538 Session Stop Time : 1617 Andrae Ball PT [facility] 08-04-2023 History of Present illness Narrative Program_ID:[id number] Access Code: [email or web address] URL: [email or web address] Date: 08-04-2023 Prepared By: Dayday Mortensen Program Notes Exercises - Supine Piriformis Stretch with Leg Straight - 1 x daily - 7 x weekly - 2 sets - 3 reps - Seated Ankle Plantarflexion with Resistance - 1 x daily - 7 x weekly - 1-2 sets - 10 reps - Ankle Inversion with Resistance - 1 x daily - 7 x weekly - 1-2 sets - 10 reps - Ankle Eversion with Resistance - 1 x daily - 7 x weekly - 1-2 sets - 10 reps - Long Sitting Plantar Fascia Stretch with Towel - 1 x daily - 7 x weekly - 1-2 sets - 3 reps - Supine Posterior Pelvic Tilt - 1 x daily - 7 x weekly - 2 sets - 10 reps - Supine Bridge - 1 x daily - 7 x weekly - 2 sets - 5 reps - Supine Gluteus Stretch - 1 x daily - 7 x weekly - 1 sets - 3 reps - Heel Raises with Counter Support - 1 x daily - 7 x weekly - 2 sets - 10 reps - Seated Transversus Abdominis Bracing - 1 x daily - 7 x weekly - 2 sets - 10 reps - Sidelying Hip Abduction - 1 x daily - 7 x weekly - 1 sets - 10 reps - Sidelying Bent Knee Hip Flexion - 1 x daily - 7 x weekly - 1 sets - 10 reps - Sidelying Hip Circles - 1 x daily - 7 x weekly - 1 sets - 10 reps - Figure 4 Bridge - 1 x daily - 7 x weekly - 2 sets - 10 reps Episode Visit Count: 8 Therapist That Will Accept/Oversee The Plan Of Care: Andrae Ball PT Start of Care Date: 05/05/23 Onset Date: 02/12/23 Patient Identified by Name and Date of : Yes REHABILITATION AND SPORTS THERAPY PHYSICAL THERAPY TREATMENT NOTE ASSESSMENT: Khloe Flores tolerated the session with fatigue and expected muscle soreness. She demonstrated improvements in endurance with ankle strengthening and challenge with SL hip abduction series. The patient will continue to benefit from ongoing skilled physical therapy to progress toward set goals. PLAN FOR NEXT VISIT: PN SUBJECTIVE: Pt reports that she is doing good today. She hasn't had too many problems with her nkle, swelling is a lit less. Stability seems to be getting better. Pt able to complete sidestepping with theraband with increased ease. Toe raises still seem to irritate the ankle. Pain: Pain Pain Level: 0 Pain Location: Foot - Left, Leg - Left Post Treatment Pain Post Treatment Symptoms: my foot feels a little tingly OBJECTIVE MEASURES WITH LEVEL OF FUNCTION: Weakness noted in hip abductors TREATMENT: Therapeutic Exercise: 1: *SL hip abduction series x10 each direction 2: *Single leg bridges, given for HEP, not performed 3: BAPS FWB: CW, CCW, PF/DF, INV/EV x10 each 4: PF with eccentric DF with 3# ankle weight on forefoot x 10 Skilled Intervention: Patient was educated in proper exercise technique and purpose for exercises. Reviewed and educated patient on additions/changes for home exercise program as above (*). Skilled judgment was used in selection of appropriate interventions. Provided written instruction for home exercise program to facilitate proper performance and compliance. Correct performance of therapeutic exercises was facilitated with verbal and visual cuing. Neuromuscular Re-Education: 1: L SLS 2x30 seconds with occasional tap on // bars 2: L SLS on foam with 1 UE assist 2x30 seconds 3: Tandem walking on foam beams without UE support x 2 rounds 4: Sidestepping on foam beams x1 round each direction 5: Sidestepping on BOSU x10 B 6: Forward stepping on BOSU x 10 leading with LLE Skilled Intervention: Skilled judgment used to assess appropriate program for balance and coordination activity. Billing Therapeutic Exercise Treatment Minutes: 15 Neuromuscular Re-Education Treatment Minutes: 27 Skilled Treatment Time Minutes (timed and untimed codes): 42 Total Session Time (minutes): 42 Session Start Time : 1715 Session Stop Time : 1757 BLANCO Zavala PT documented in this encounter [facility] 08-04-2023 Note HNO ID: [id number] Author: ANDRAE BALL PT Service: ? Author Type: Physical Therapist Type: Progress Notes Filed: 08/05/2023 06:57 Note Text: Episode Visit Count: 8 Therapist That Will Accept/Oversee The Plan Of Care: Andrae Ball PT Start of Care Date: 05/05/23 Onset Date: 02/12/23 Patient Identified by Name and Date of : Yes REHABILITATION AND SPORTS THERAPY PHYSICAL THERAPY TREATMENT NOTE ASSESSMENT: Khloe Flores tolerated the session with fatigue and expected muscle soreness. She demonstrated improvements in endurance with ankle strengthening and challenge with SL hip abduction series. The patient will continue to benefit from ongoing skilled physical therapy to progress toward set goals. PLAN FOR NEXT VISIT: PN SUBJECTIVE: Pt reports that she is doing good today. She hasn't had too many problems with her nkle, swelling is a lit less. Stability seems to be getting better. Pt able to complete sidestepping with theraband with increased ease. Toe raises still seem to irritate the ankle. Pain: Pain Pain Level: 0 Pain Location: Foot - Left, Leg - Left Post Treatment Pain Post Treatment Symptoms: my foot feels a little tingly OBJECTIVE MEASURES WITH LEVEL OF FUNCTION: Weakness noted in hip abductors TREATMENT: Therapeutic Exercise: 1: *SL hip abduction series x10 each direction 2: *Single leg bridges, given for HEP, not performed 3: BAPS FWB: CW, CCW, PF/DF, INV/EV x10 each 4: PF with eccentric DF with 3# ankle weight on forefoot x 10 Skilled Intervention: Patient was educated in proper exercise technique and purpose for exercises. Reviewed and educated patient on additions/changes for home exercise program as above (*). Skilled judgment was used in selection of appropriate interventions. Provided written instruction for home exercise program to facilitate proper performance and compliance. Correct performance of therapeutic exercises was facilitated with verbal and visual cuing. Neuromuscular Re-Education: 1: L SLS 2x30 seconds with occasional tap on // bars 2: L SLS on foam with 1 UE assist 2x30 seconds 3: Tandem walking on foam beams without UE support x 2 rounds 4: Sidestepping on foam beams x1 round each direction 5: Sidestepping on BOSU x10 B 6: Forward stepping on BOSU x 10 leading with LLE Skilled Intervention: Skilled judgment used to assess appropriate program for balance and coordination activity. Billing Therapeutic Exercise Treatment Minutes: 15 Neuromuscular Re-Education Treatment Minutes: 27 Skilled Treatment Time Minutes (timed and untimed codes): 42 Total Session Time (minutes): 42 Session Start Time : 1715 Session Stop Time : 1757 BLANCO Zavala, PT [facility] 07-25-2023 Telephone encounter Note Called patient back. She updated about a recent tick bite. Agree with 10 days of doxycycline as prescribed assuming ongoing clinical improvement. She is feeling better today. Radha Fletcher MD, PhD Staff, Infectious Disease [facility] [phone] [facility] Work Phone: 07-25-2023 Miscellaneous Notes Called patient back. She updated about a recent tick bite. Agree with 10 days of doxycycline as prescribed assuming ongoing clinical improvement. She is feeling better today. Radha Fletcher MD, PhD Staff, Infectious Disease [facility] [phone] documented in this encounter [facility] 07-24-2023 Note HNO ID: [id number] Author: SENDY CANTRELL APRN.HYDROGENATION STILL OPERATOR Service: ? Author Type: Nurse Practitioner Type: Progress Notes Filed: 07/24/2023 08:17 Note Text: Last 14 Encounter BP Readings: Date: BP: 07/24/2023 150/82 06/27/2023 135/86 06/09/2023 128/80 05/16/2023 112/68 04/28/2023 139/92 03/28/2023 147/94 03/05/2023 130/80 02/12/2023 130/80 01/06/2023 112/64 12/09/2022 136/80 06/10/2022 122/80 03/29/2022 118/74 12/10/2021 110/60 05/18/2021 136/80 [facility] 07-24-2023 Note HNO ID: [id number] Author: SENDY CANTRELL APRN.HYDROGENATION STILL OPERATOR Service: ? Author Type: Nurse Practitioner Type: Progress Notes Filed: 07/24/2023 08:20 Note Text: Chief Complaint Patient presents with: tic bite on left foot wants you look at HPI Khloe Flores is a 52 year old female who presents here today for Above Complaints. Khloe is an established patient of Dr. George, DO and myself. Concerns today... Per [facility]: Dr. George, I had a tick in my sock on Friday, July 11. Unfortunately, I now have a red spot on my left foot. Do I need to receive any treatment for this? I do not want to go through what I did this fall. Please advise me on what I need to do. Thank you, Khloe In office... Pt reports finding tick in her sock on July 12, did not think anything of it. Pt did not think tick was ever attached to skin. But then 1-2 days later noticed a red bump/bite to inside of L arch of foot. Pt now reports headache yesterday and today. Took tylenol this morning and tempeture in office was 99.4F. Pt has not taken temperature at home so unknown fever. No chills/night sweats. No bullseye rash, just redness at pinpoint site of bite. Only flu-like symptoms is headache so far. Pt hx of dx of lyme disease this past fall with neurological deficits at time of dx. Was also dx with band worth syndrome. Was seen by Dr. Fletcher in infectious disease, was treated with doxycycline x 1 month and symptoms slowly improved. Still in PT for mild gait instability issues. No other concerns or complaints. Past medical history, appointments, medications, allergies reviewed. Previous Medical History PAST MEDICAL HISTORY Diagnosis Date Acute cholecystitis Hypothyroidism Hypothyroidism 03/23/2015 Localization-related (focal) (partial) epilepsy and epileptic syndromes with simple partial seizures, without mention of intractable epilepsy grand mal last one age 7 Lyme disease Microcalcifications of the breast 06/10/2013 Left breast Osteopenia of neck of left femur 2022 Other specified disorder of gallbladder Rheumatoid arthritis(714.0) Sjogren's syndrome (HCC) 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 Sjogrens Syndrome Unspecified hypothyroidism Previous Surgical History PAST SURGICAL HISTORY Procedure Laterality Date ARTHROSCOPY KNEE DIAGNOSTIC W/WO SYNOVIAL BX SPX Left 86,84 Arthroscopy, knee BIOPSY OF BREAST 2013 microcalcifications COLONOSCOPY EGD LAPS SURG CHOLECYSTECTOMY W/CHOLANGIOGRAPHY 02/27/2005 NOVASURE 08/01/2015 HYSTEROSCOPY, ABLATION ENDOMETRIAL NOVASURE PAST SURGICAL HISTORY OF MOLE REMOVAL ON BACK X 2- benign PAST SURGICAL HISTORY OF wisdom teeth Family History FAMILY HISTORY Problem Relation Age of Onset Cancer Mother blood- multiple mylomia other (multiple myoloma) Mother Heart Father 54 MA; Hypertension Maternal Grandmother Diabetes Maternal Grandmother Breast Cancer Maternal Grandmother other (Gallbladder Cancer) Maternal Grandfather 70 other (Lung and Brain Cancer) Paternal Grandfather 70 Seizures Daughter Resolved Seizures Son Resolved Breast Cancer Other 40 Breast Cancer Other 60 Breast Cancer Other 70 Patient Allergies ALLERGIES Allergen Reactions Erythromycin Vomiting Floxin [Ofloxacin] Intolerance Guaifenesin Swelling lips swell Mycinette [Cetylpyr* Intolerance Sulfa (Sulfonamide * Swelling face Vesicare [Solifenac* Swelling tingle tongue Z-Pack [Azithromyci* Diarrhea, Vomiting Current Medications Current Outpatient Medications on File Prior to Visit Medication Sig liothyronine (CYTOMEL) 5 mcg tablet Take 2 tablets by mouth daily in the late afternoon. liothyronine (CYTOMEL) 5 mcg tablet Take 2 tablets by mouth daily in the late afternoon for 7 days. estradiol 10 mcg vaginal suppository maintenance pack (IMVEXXY) Use 1 Suppository vaginally two times a week. levothyroxine (LEVOXYL) 100 mcg tablet Take 1 tablet by mouth once daily. Take on empty stomach. For Thyroid. tofacitinib (XELJANZ XR) 11 mg tablet, extended release montelukast (SINGULAIR) 10 mg tablet Take 1 tablet by mouth daily at bedtime. ondansetron orally disintegrating (ZOFRAN ODT) 4 mg disintegrating tablet Take 1 tablet by mouth every 8 hours as needed for nausea/vomiting. levothyroxine (LEVOXYL) 100 mcg tablet Take 1 tablet by mouth daily before breakfast. Take on empty stomach. For Thyroid. (Patient not taking: Reported on 05/16/2023) cyanocobalamin, vitamin B-12, (VITAMIN B12 ORAL) Take by mouth. traMADOL 50 mg ORAL tablet Take 1 tablet by mouth. @ bedtime methotrexate 2.5 mg ORAL tablet Take by mouth. Take 7 tablets a week calcium carbonate/vitamin d3(CALCIUM 600 + D(3) 600 MG (1,500)-200 UNIT TAB) Take one(1) tablet twice daily. FOLIC ACID 1 MG TAB Take one(1) tablet daily. es (more content not included)... [facility] 07-24-2023 History of Present illness Narrative Chief Complaint Patient presents with: tic bite on left foot wants you look at HPI Khloe Flores is a 52 year old female who presents here today for Above Complaints. Khloe is an established patient of Dr. George, DO and myself. Concerns today... Per [facility]: Dr. George, I had a tick in my sock on July 11. Unfortunately, I now have a red spot on my left foot. Do I need to receive any treatment for this? I do not want to go through what I did this fall. Please advise me on what I need to do. Thank you, Khloe In office... Pt reports finding tick in her sock on July 12, did not think anything of it. Pt did not think tick was ever attached to skin. But then 1-2 days later noticed a red bump/bite to inside of L arch of foot. Pt now reports headache yesterday and today. Took tylenol this morning and tempeture in office was 99.4F. Pt has not taken temperature at home so unknown fever. No chills/night sweats. No bullseye rash, just redness at pinpoint site of bite. Only flu-like symptoms is headache so far. Pt hx of dx of lyme disease this past fall with neurological deficits at time of dx. Was also dx with band worth syndrome. Was seen by Dr. Fletcher in infectious disease, was treated with doxycycline x 1 month and symptoms slowly improved. Still in PT for mild gait instability issues. No other concerns or complaints. Past medical history, appointments, medications, allergies reviewed. Previous Medical History PAST MEDICAL HISTORY Diagnosis Date Acute cholecystitis Hypothyroidism Hypothyroidism 03/23/2015 Localization-related (focal) (partial) epilepsy and epileptic syndromes with simple partial seizures, without mention of intractable epilepsy grand mal last one age 7 Lyme disease Microcalcifications of the breast 06/10/2013 Left breast Osteopenia of neck of left femur 2022 Other specified disorder of gallbladder Rheumatoid arthritis(714.0) Sjogren's syndrome (HCC) 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 Sjogrens Syndrome Unspecified hypothyroidism Previous Surgical History PAST SURGICAL HISTORY Procedure Laterality Date ARTHROSCOPY KNEE DIAGNOSTIC W/WO SYNOVIAL BX SPX Left 86,84 Arthroscopy, knee BIOPSY OF BREAST 2014 microcalcifications COLONOSCOPY EGD LAPS SURG CHOLECYSTECTOMY W/CHOLANGIOGRAPHY 02/27/2005 NOVASURE 08/01/2015 HYSTEROSCOPY, ABLATION ENDOMETRIAL NOVASURE PAST SURGICAL HISTORY OF MOLE REMOVAL ON BACK X 2- benign PAST SURGICAL HISTORY OF wisdom teeth Family History FAMILY HISTORY Problem Relation Age of Onset Cancer Mother blood- multiple mylomia other (multiple myoloma) Mother Heart Father 54 MA; Hypertension Maternal Grandmother Diabetes Maternal Grandmother Breast Cancer Maternal Grandmother other (Gallbladder Cancer) Maternal Grandfather 70 other (Lung and Brain Cancer) Paternal Grandfather 70 Seizures Daughter Resolved Seizures Son Resolved Breast Cancer Other 40 Breast Cancer Other 60 Breast Cancer Other 70 Patient Allergies ALLERGIES Allergen Reactions Erythromycin Vomiting Floxin [Ofloxacin] Intolerance Guaifenesin Swelling lips swell Mycinette [Cetylpyr* Intolerance Sulfa (Sulfonamide * Swelling face Vesicare [Solifenac* Swelling tingle tongue Z-Pack [Azithromyci* Diarrhea, Vomiting Current Medications Current Outpatient Medications on File Prior to Visit Medication Sig liothyronine (CYTOMEL) 5 mcg tablet Take 2 tablets by mouth daily in the late afternoon. liothyronine (CYTOMEL) 5 mcg tablet Take 2 tablets by mouth daily in the late afternoon for 7 days. estradiol 10 mcg vaginal suppository maintenance pack (IMVEXXY) Use 1 Suppository vaginally two times a week. levothyroxine (LEVOXYL) 100 mcg tablet Take 1 tablet by mouth once daily. Take on empty stomach. For Thyroid. tofacitinib (XELJANZ XR) 11 mg tablet, extended release montelukast (SINGULAIR) 10 mg tablet Take 1 tablet by mouth daily at bedtime. ondansetron orally disintegrating (ZOFRAN ODT) 4 mg disintegrating tablet Take 1 tablet by mouth every 8 hours as needed for nausea/vomiting. levothyroxine (LEVOXYL) 100 mcg tablet Take 1 tablet by mouth daily before breakfast. Take on empty stomach. For Thyroid. (Patient not taking: Reported on 05/16/2023) cyanocobalamin, vitamin B-12, (VITAMIN B12 ORAL) Take by mouth. traMADOL 50 mg ORAL tablet Take 1 tablet by mouth. @ bedtime methotrexate 2.5 mg ORAL tablet Take by mouth. Take 7 tablets a week calcium carbonate/vitamin d3(CALCIUM 600 + D(3) 600 MG (1,500)-200 UNIT TAB) Take one(1) tablet twice daily. FOLIC ACID 1 MG TAB Take one(1) tablet daily. esomeprazole (NEXIUM) 40 mg ORAL CpDR Take one(1) capsule daily. L-LYSINE 500 MG TAB 2 tabs daily THERAPEUTIC MULTIVITAMIN TAB Take one(1) tablet daily. TYLENOL ARTHRITIS 650 MG TAB two tabs twice daily PLAQUENIL 200 MG TAB Take one tablet daily with breakfast and 1/2 tablet in the evening with dinner No current facility-administered medications on file prior to visit. Social History Social History Tobacco Use Smoking status: Never Smokeless tobacco: Never Vaping Use Vaping Use: Never used Substance Use Topics Alcohol use: No Drug use: No REVIEW OF SYSTEMS: as above Reviewed relevant PMHx, PSHx, Social Hx, current medications and allergies. Review of Symptoms REVIEW OF SYSTEMS See HPI. EXAM: BP 150/82 (BP Site: Left Arm, BP Position: Sitting, BP Cuff Size: Regular Adult) Pulse 81 Temp 37.4 C (99.4 F) Resp 14 Wt 64 kg (141 lb 3.2 oz) LMP 07/05/2015 (Exact Date) SpO2 99% BMI 25.01 kg/m General Appearance: Well appearing, alert, in no acute distress, well-hydrated, well nourished.. Skin: Skin color, texture, turgor normal, no suspicious rashes or lesions. Positive: pinpoint red papule/bite to medial arch of L foot. No bullseye rash surrounding. No surrounding tenderness or erythema. Tenderness to palpitation directly over papule only. Head: Normocephalic, no masses, lesions, tenderness or abnormalities. Extremities: No deformities, edema, skin discoloration, clubbing or cyanosis. Good capillary refill. . Musculoskeletal: No joint swelling, deformity, or tenderness. Neurologic: Gait normal. Reflexes normal and symmetric. Sensation grossly intact. Last 14 BP Likely elevated in office today d/t anxiety and worry. Last 14 Encounter BP Readings: Date: BP: 07/24/2023 150/82 06/27/2023 135/86 06/09/2023 128/80 05/16/2023 112/68 04/28/2023 139/92 03/28/2023 147/94 03/05/2023 130/80 02/12/2023 130/80 01/06/2023 112/64 12/09/2022 136/80 06/10/2022 122/80 03/29/2022 118/74 12/10/2021 110/60 05/18/2021 136/80 Health Maintenance List Hepatitis C Screening Never done HIV Screening Never done Colorectal Cancer Screening Never done Behavioral Health Screening Never done Covid-19 Vaccine( season) due on 01/07/2024 Pneumococcal Vaccine(1 of 2 - PCV) due on 01/07/2024 Mammogram Screening due on 05/16/2024 Annual PCP Team Chronic Disease Visit due on 07/23/2024 Pap Testing due on 02/09/2025 HPV Testing due on 02/09/2025 Diabetes Screening due on 06/03/2026 Lipid Screening due on 07/10/2027 DTaP,Tdap,Td Vaccine(3 - Td or Tdap) due on 06/10/2032 Influenza Vaccine Completed Shingrix Vaccine Completed ASSESSMENT/PLAN: 1. Tick bite of left foot, initial encounter - ICD9: 917.4, E906.4, ICD10: S90.862A, W57.XXXA (primary diagnosis) With hx of lyme disease (dx this past fall) Start doxycycline BID x 10 days d/t mild neuro symptoms possibly starting. Reach out to infectious disease doctor about situation, if no improvement with this regimen she needs to see Dr. Fletcher again. No need for lyme disease testing due to + in fall and will remain + regardless. - DOXYCYCLINE HYCLATE 100 MG TABLET 2. Lyme disease - ICD9: 088.81, ICD10: A69.20 See above. - DOXYCYCLINE HYCLATE 100 MG TABLET 3. Elevated BP without diagnosis of hypertension - ICD9: 796.2, ICD10: R03.0 Likely d/t anxiety and worry about current situation. Continue to monitor at home and if remains elevated, needs office visit to reassess. Pt agreeable to check BP x 2 weeks and report readings to PCP team. - Encouraged dietary sodium restriction/DASH diet - Recommended regular aerobic exercise. - Recommend home blood pressure monitoring, to bring results in on next visit - Goal of BP <130/80 RTO as needed. Prescription instructions reviewed with patient as applicable. Potential red flag symptoms discussed with the patient. Reviewed appropriate action plan to take if red flag symptoms occur. Patient agreeable to treatment plan. Sendy Crowell APRN.HYDROGENATION STILL OPERATOR [address] [place] [address] documented in this encounter [facility] 07-22-2023 Note HNO ID: [id number] Author: ANDRAE BALL PT Service: ? Author Type: Physical Therapist Type: Progress Notes Filed: 07/22/2023 17:27 Note Text: Episode Visit Count: 7 Therapist That Will Accept/Oversee The Plan Of Care: Andrae Ball PT Start of Care Date: 05/05/23 Onset Date: 02/12/23 Patient Identified by Name and Date of : Yes REHABILITATION AND SPORTS THERAPY PHYSICAL THERAPY PROGRESS REPORT PLAN OF CARE UPDATE: Assessment: Khloe Flores demonstrates difficulty with walking, SL balance, and strength and improvements in overall LE strength, pain intensity and level of independence with the HEP. She has progressed toward goals. Patient continues to present with impairments in gait and strength that interfere with walking, stair negotiation . Current prognosis is Good due to: acuteness of condition, good support system/ coping skills, current objective clinical presentation . She will benefit from continued skilled therapy services to meet the updated goals for this plan of care as noted below. Updated 07/22/2023 Goals for Episode of Care: created on 05/05/23 through 07/09/2023 [place] in home exercise program.-MET Patient will decrease pain rating by 2 points to meet minimal clinical important difference for numeric pain rating scale.--progressing Patient will demonstrate increase in LLE strength to at least 4+/5 during manual muscle testing in order to improve function for moderate to heavy functional tasks.--progressing Patient will perform >5 full excursion SL heel raises on the left to demonstrate increase PF strength.--MET Patient will increase flexibility of left hamstrings to equal unaffected extremity/side to improve mechanics.--progressing Patient will walk >1 mile in 30 minutes to progress toward prior fitness Level.--MET Improved LLE sensation.--not met Normal gait with no apparent foot drop, and improved toe off.--partially met Patient Goals: Be able to walk like she used to Patient Goals: Be able to walk like she used to Planned Interventions, Frequency, and Duration: 1x every other week, 4 weeks Total Number of Visits Planned: 2 Patient to be seen for Therapeutic exercise (38998), Neuromuscular re-education (24649), Manual therapy (91183), Therapeutic activities (04255), Self-senior care management (35491), Gait Training (79006), Body Mechanics Training, Functional training, General Conditioning, E-Stim Unattended (64702), E-Stim Attended/TENS (81065), Ultrasound (27753) PLAN FOR NEXT VISIT: Progress ankle strangthening as tolerated. SL stance. Functional ankle strengthening exercises SUBJECTIVE: Pt states she feels she is improved, but now hitting a plataue. Has not progressed much in the past 2 weeks. Still doing the HEP. Feels that she is 85% improvement overall. Can stand on one foot now. Patient Goals: Be able to walk like she used to Functional Limitations: walking, stair negotiation Prior Level of Function: Independent without limitations Intake Information: Prescription present Previous Treatment: None Pain: Pain Pain Level: 1 Pain Location: Foot - Left, Leg - Left Post Treatment Pain Post Treatment Pain Location: Leg - Left PROMIS Scales 07/20/2023 06/21/2023 06/10/2023 Higher is Better Phys Func - Score 41 (mild dysfunction) 44 (mild dysfunction) Phys Func - Percentile 18 27 Self-Eff Symptom - Score 49 (Average) 54 (Average) Self-Eff Symptom - Percentile 46 66 T-scores: mean of general population = 50. 5 points is clinically meaningfully difference Percentiles provide an indication of how the patient's score ranks in relation to the general population. Higher percentile rankings indicate better function/quality of life. 50th percentile is the average of the general population and indicates half of respondents had a worse score. OBJECTIVE MEASURES WITH LEVEL OF FUNCTION: Lumbar Spine AROM Lumbar Flexion: Normal Lumbar Extension: Normal Lumbar R Side-Bend: Normal Lumbar L Side-Bend: Normal Lumbar R Rotation: Normal Lumbar L Rotation: Normal LE AROM Tested?: Yes LE Strength L Ankle Dorsiflexion (L4): 4+/5 L Ankle Plantar Flexion: 4/5 L Ankle Plantarflexion Functional Strength (S1): Able to perform approximately 10 reps before muscle starts to fatigue L Ankle Inversion: 4/5 L Ankle Eversion: 4-/5 Gait Gait Observation: Decreased lateral stability during RLE stance TREATMENT: Therapeutic Exercise: 1: All objective measures taken this session 2: Side-stepping GTB at forefeet x [address] x 2 3: *Discussed modification to the HEP by removing PF against the GTB. SL heel raises as able. Skilled Intervention: Patient was educated in proper exercise technique and purpose for exercises. Provided written instruction for home exercise program to facilitate proper performance and compliance. Correct performance of therapeutic exercises was facilitated with verbal and visual (more content not included)... [facility] 07-22-2023 History of Present illness Narrative Images from the original note were not included. Episode Visit Count: 7 Therapist That Will Accept/Oversee The Plan Of Care: Andrae Ball PT Start of Care Date: 05/05/23 Onset Date: 02/12/23 Patient Identified by Name and Date of : Yes REHABILITATION AND SPORTS THERAPY PHYSICAL THERAPY PROGRESS REPORT PLAN OF CARE UPDATE: Assessment: Khloe Flores demonstrates difficulty with walking, SL balance, and strength and improvements in overall LE strength, pain intensity and level of independence with the HEP. She has progressed toward goals. Patient continues to present with impairments in gait and strength that interfere with walking, stair negotiation . Current prognosis is Good due to: acuteness of condition, good support system/ coping skills, current objective clinical presentation . She will benefit from continued skilled therapy services to meet the updated goals for this plan of care as noted below. Updated 07/22/2023 Goals for Episode of Care: created on 05/05/23 through 07/09/2023 [place] in home exercise program.-MET Patient will decrease pain rating by 2 points to meet minimal clinical important difference for numeric pain rating scale.--progressing Patient will demonstrate increase in LLE strength to at least 4+/5 during manual muscle testing in order to improve function for moderate to heavy functional tasks.--progressing Patient will perform >5 full excursion SL heel raises on the left to demonstrate increase PF strength.--MET Patient will increase flexibility of left hamstrings to equal unaffected extremity/side to improve mechanics.--progressing Patient will walk >1 mile in 30 minutes to progress toward prior fitness Level.--MET Improved LLE sensation.--not met Normal gait with no apparent foot drop, and improved toe off.--partially met Patient Goals: Be able to walk like she used to Patient Goals: Be able to walk like she used to Planned Interventions, Frequency, and Duration: 1x every other week, 4 weeks Total Number of Visits Planned: 2 Patient to be seen for Therapeutic exercise (60761), Neuromuscular re-education (30805), Manual therapy (21279), Therapeutic activities (21531), Self-senior care management (74214), Gait Training (14637), Body Mechanics Training, Functional training, General Conditioning, E-Stim Unattended (00273), E-Stim Attended/TENS (20277), Ultrasound (48468) PLAN FOR NEXT VISIT: Progress ankle strangthening as tolerated. SL stance. Functional ankle strengthening exercises SUBJECTIVE: Pt states she feels she is improved, but now hitting a plataue. Has not progressed much in the past 2 weeks. Still doing the HEP. Feels that she is 85% improvement overall. Can stand on one foot now. Patient Goals: Be able to walk like she used to Functional Limitations: walking, stair negotiation Prior Level of Function: Independent without limitations Intake Information: Prescription present Previous Treatment: None Pain: Pain Pain Level: 1 Pain Location: Foot - Left, Leg - Left Post Treatment Pain Post Treatment Pain Location: Leg - Left PROMIS Scales 07/20/2023 06/21/2023 06/10/2023 Higher is Better Phys Func - Score 41 (mild dysfunction) 44 (mild dysfunction) Phys Func - Percentile 18 27 Self-Eff Symptom - Score 49 (Average) 54 (Average) Self-Eff Symptom - Percentile 46 66 T-scores: mean of general population = 50. 5 points is clinically meaningfully difference Percentiles provide an indication of how the patient's score ranks in relation to the general population. Higher percentile rankings indicate better function/quality of life. 50th percentile is the average of the general population and indicates half of respondents had a worse score. OBJECTIVE MEASURES WITH LEVEL OF FUNCTION: Lumbar Spine AROM Lumbar Flexion: Normal Lumbar Extension: Normal Lumbar R Side-Bend: Normal Lumbar L Side-Bend: Normal Lumbar R Rotation: Normal Lumbar L Rotation: Normal LE AROM Tested?: Yes LE Strength L Ankle Dorsiflexion (L4): 4+/5 L Ankle Plantar Flexion: 4/5 L Ankle Plantarflexion Functional Strength (S1): Able to perform approximately 10 reps before muscle starts to fatigue L Ankle Inversion: 4/5 L Ankle Eversion: 4-/5 Gait Gait Observation: Decreased lateral stability during RLE stance TREATMENT: Therapeutic Exercise: 1: All objective measures taken this session 2: Side-stepping GTB at forefeet x [address] x 2 3: *Discussed modification to the HEP by removing PF against the GTB. SL heel raises as able. Skilled Intervention: Patient was educated in proper exercise technique and purpose for exercises. Provided written instruction for home exercise program to facilitate proper performance and compliance. Correct performance of therapeutic exercises was facilitated with verbal and visual cuing. Billing Therapeutic Exercise Treatment Minutes: 41 Skilled Treatment Time Minutes (timed and untimed codes): 41 Total Session Time (minutes): 41 Session Start Time : 1546 Session Stop Time : 1626 Andrae Ball PT documented in this encounter [facility] 07-02-2023 Miscellaneous Notes Received request from Mela Garcia M.D. for last office note, printed and faxed to provider, received fax confirmation. Ashwini Lee MA documented in this encounter [facility] 07-01-2023 History of Present illness Narrative Program_ID:[id number] Access Code: [email or web address] URL: [email or web address] Date: 07-01-2023 Prepared By: Dayday Mortensen Program Notes Exercises - Supine Piriformis Stretch with Leg Straight - 1 x daily - 7 x weekly - 2 sets - 3 reps - Seated Ankle Plantarflexion with Resistance - 1 x daily - 7 x weekly - 1-2 sets - 10 reps - Ankle Inversion with Resistance - 1 x daily - 7 x weekly - 1-2 sets - 10 reps - Ankle Eversion with Resistance - 1 x daily - 7 x weekly - 1-2 sets - 10 reps - Long Sitting Plantar Fascia Stretch with Towel - 1 x daily - 7 x weekly - 1-2 sets - 3 reps - Supine Posterior Pelvic Tilt - 1 x daily - 7 x weekly - 2 sets - 10 reps - Supine Bridge - 1 x daily - 7 x weekly - 2 sets - 5 reps - Supine Gluteus Stretch - 1 x daily - 7 x weekly - 1 sets - 3 reps - Heel Raises with Counter Support - 1 x daily - 7 x weekly - 2 sets - 10 reps - Seated Transversus Abdominis Bracing - 1 x daily - 7 x weekly - 2 sets - 10 reps Episode Visit Count: 6 Therapist That Will Accept/Oversee The Plan Of Care: Dayday Sage Start of Care Date: 05/05/23 Onset Date: 02/12/23 Patient Identified by Name and Date of : Yes REHABILITATION AND SPORTS THERAPY PHYSICAL THERAPY TREATMENT NOTE ASSESSMENT: Khloe Flores tolerated the session with fatigue and expected muscle soreness. She demonstrated improvements in tolerance to core strengthening without increase in LBP. The patient will continue to benefit from ongoing skilled physical therapy to progress toward set goals. PLAN FOR NEXT VISIT: PN SUBJECTIVE: Pt states that she is doing pretty good today. Pt states that her toe is feeling a lot better, still a sock sensation under the arch of her foot. Pt states joslyn she bought a compression sock to wear for long distance walking. Pt wore it going to [employer] and she did not have any pain with walking. Pt states that she did not have to take a rest day after last therapy session, usually is flared up and needs to. Pt states that steps are getting better. Pt reports that her hips are on fire today, thinks its related to other medical conditions. Pt would like exercises for low back and ankle strengthening. Pain: Pain Pain Level: 1 Pain Location: Foot - Left, Leg - Left Post Treatment Pain Post Treatment Pain Location: Leg - Left OBJECTIVE MEASURES WITH LEVEL OF FUNCTION: Improved motion with calf raises. TREATMENT: Therapeutic Exercise: 1: Hooklying TA activation x 10 with 2-3 second holds 2: *PPT 2x10 (felt good on the back) 3: *Bridges 2x5 4: *Glute stretch 3x30 seconds 5: Calf raises 2x10 6: *Seated isometric abdominals x 10 with 2-3 second holds 7: Updated HEP Skilled Intervention: Patient was educated in proper exercise technique and purpose for exercises. Reviewed and educated patient on additions/changes for home exercise program as above (*). Skilled judgment was used in selection of appropriate interventions. Provided written instruction for home exercise program to facilitate proper performance and compliance. Correct performance of therapeutic exercises was facilitated with verbal and visual cuing. Manual Therapy: 1: STM to plantar fascia x 10 minutes Skilled Intervention: Manual skills to improve joint mobility, ROM, and decrease pain. Utilized anatomy knowledge of the therapist, and assessment of patient's response to intervention. Billing Therapeutic Exercise Treatment Minutes: 43 Manual TherapyTreatment Minutes: 10 Skilled Treatment Time Minutes (timed and untimed codes): 53 Total Session Time (minutes): 53 Session Start Time : 1004 Session Stop Time : 1057 BLANCO Zavala PT documented in this encounter [facility] 07-01-2023 Note HNO ID: [id number] Author: ANDRAE BALL, PT Service: ? Author Type: Physical Therapist Type: Progress Notes Filed: 07/01/2023 12:23 Note Text: Episode Visit Count: 6 Therapist That Will Accept/Oversee The Plan Of Care: Dayday Sage Start of Care Date: 05/05/23 Onset Date: 02/12/23 Patient Identified by Name and Date of : Yes REHABILITATION AND SPORTS THERAPY PHYSICAL THERAPY TREATMENT NOTE ASSESSMENT: Khloe Flores tolerated the session with fatigue and expected muscle soreness. She demonstrated improvements in tolerance to core strengthening without increase in LBP. The patient will continue to benefit from ongoing skilled physical therapy to progress toward set goals. PLAN FOR NEXT VISIT: PN SUBJECTIVE: Pt states that she is doing pretty good today. Pt states that her toe is feeling a lot better, still a sock sensation under the arch of her foot. Pt states joslyn she bought a compression sock to wear for long distance walking. Pt wore it going to [employer] and she did not have any pain with walking. Pt states that she did not have to take a rest day after last therapy session, usually is flared up and needs to. Pt states that steps are getting better. Pt reports that her hips are on fire today, thinks its related to other medical conditions. Pt would like exercises for low back and ankle strengthening. Pain: Pain Pain Level: 1 Pain Location: Foot - Left, Leg - Left Post Treatment Pain Post Treatment Pain Location: Leg - Left OBJECTIVE MEASURES WITH LEVEL OF FUNCTION: Improved motion with calf raises. TREATMENT: Therapeutic Exercise: 1: Hooklying TA activation x 10 with 2-3 second holds 2: *PPT 2x10 (felt good on the back) 3: *Bridges 2x5 4: *Glute stretch 3x30 seconds 5: Calf raises 2x10 6: *Seated isometric abdominals x 10 with 2-3 second holds 7: Updated HEP Skilled Intervention: Patient was educated in proper exercise technique and purpose for exercises. Reviewed and educated patient on additions/changes for home exercise program as above (*). Skilled judgment was used in selection of appropriate interventions. Provided written instruction for home exercise program to facilitate proper performance and compliance. Correct performance of therapeutic exercises was facilitated with verbal and visual cuing. Manual Therapy: 1: STM to plantar fascia x 10 minutes Skilled Intervention: Manual skills to improve joint mobility, ROM, and decrease pain. Utilized anatomy knowledge of the therapist, and assessment of patient's response to intervention. Billing Therapeutic Exercise Treatment Minutes: 43 Manual TherapyTreatment Minutes: 10 Skilled Treatment Time Minutes (timed and untimed codes): 53 Total Session Time (minutes): 53 Session Start Time : 1004 Session Stop Time : 1057 Viridiana CamposBLANCO grover, PT [facility] 06-27-2023 Note HNO ID: [id number] Author: JEROME ENG MD Service: ? Author Type: Physician Type: Progress Notes Filed: 06/27/2023 08:36 Note Text: [facility] 06-23-2023 History of Present illness Narrative Episode Visit Count: 5 Therapist That Will Accept/Oversee The Plan Of Care: Dayday Sage Start of Care Date: 05/05/23 Onset Date: 02/12/23 Patient Identified by Name and Date of : Yes REHABILITATION AND SPORTS THERAPY PHYSICAL THERAPY TREATMENT NOTE ASSESSMENT: Khloe Flores tolerated the session with decreased symptoms. She demonstrated difficulty with balance on non-compliant surfaces due to unsteadiness. The patient will continue to benefit from ongoing skilled physical therapy to progress toward set goals. PLAN FOR NEXT VISIT: Continue with L ankle stability and strength SUBJECTIVE: Pt states that she is still making progress. SL balance is a lot more sturdy. She is able to walk on her toes. Unable to complete 5 CR on LLE. 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 Nerve glides and prone extension are not favorable for pt. Pt able to do some walking in her [place] up an incline, but ankle still feels unstable. SHe takes it easier on exercises the days she goes for walks in the [place]. Pain: Pain Pain Level: 0 Pain Location: Foot - Left, Leg - Left Post Treatment Pain Post Treatment Pain Level: Better Post Treatment Pain Location: Leg - Left OBJECTIVE MEASURES WITH LEVEL OF FUNCTION: Rigidity over L plantar fascia. TREATMENT: Therapeutic Exercise: 1: *D/C prone exercises and nerve glides 2: PWB BAPS board L 3 x10 CW, CCW, PF/DF, INV/EV 3: PF with pink theraband x10 4: Seated inversion with pink theraband x 10 5: Seated eversion with pink theraband 1x10 Skilled Intervention: Patient was educated in proper exercise technique and purpose for exercises. Skilled judgment was used in selection of appropriate interventions. Correct performance of therapeutic exercises was facilitated with verbal and visual cuing. Manual Therapy: 1: STM to plantar fascia x 10 minutes Skilled Intervention: Manual skills to improve joint mobility, ROM, and decrease pain. Utilized anatomy knowledge of the therapist, and assessment of patient's response to intervention. Neuromuscular Re-Education: 1: NBOS 2x30 seconds 2: Sidestepping on foam beams x 1 each direction no UE support 3: Tandem walking on foam beams x 2 rounds Skilled Intervention: Skilled judgment used to assess appropriate program for balance and coordination activity. Billing Therapeutic Exercise Treatment Minutes: 19 Manual TherapyTreatment Minutes: 10 Neuromuscular Re-Education Treatment Minutes: 15 Skilled Treatment Time Minutes (timed and untimed codes): 44 Total Session Time (minutes): 44 Session Start Time : 1713 Session Stop Time : 1757 BLANCO Zavala PT DPTimothy documented in this encounter [facility] 06-23-2023 Note HNO ID: [id number] Author: DAYDAY SAGE PT, DPT Service: ? Author Type: Physical Therapist Type: Progress Notes Filed: 06/25/2023 08:57 Note Text: Episode Visit Count: 5 Therapist That Will Accept/Oversee The Plan Of Care: Dayday Sage Start of Care Date: 05/05/23 Onset Date: 02/12/23 Patient Identified by Name and Date of : Yes REHABILITATION AND SPORTS THERAPY PHYSICAL THERAPY TREATMENT NOTE ASSESSMENT: Khloe Flores tolerated the session with decreased symptoms. She demonstrated difficulty with balance on non-compliant surfaces due to unsteadiness. The patient will continue to benefit from ongoing skilled physical therapy to progress toward set goals. PLAN FOR NEXT VISIT: Continue with L ankle stability and strength SUBJECTIVE: Pt states that she is still making progress. SL balance is a lot more sturdy. She is able to walk on her toes. Unable to complete 5 CR on LLE. 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 Nerve glides and prone extension are not favorable for pt. Pt able to do some walking in her [place] up an incline, but ankle still feels unstable. SHe takes it easier on exercises the days she goes for walks in the [place]. Pain: Pain Pain Level: 0 Pain Location: Foot - Left, Leg - Left Post Treatment Pain Post Treatment Pain Level: Better Post Treatment Pain Location: Leg - Left OBJECTIVE MEASURES WITH LEVEL OF FUNCTION: Rigidity over L plantar fascia. TREATMENT: Therapeutic Exercise: 1: *D/C prone exercises and nerve glides 2: PWB BAPS board L 3 x10 CW, CCW, PF/DF, INV/EV 3: PF with pink theraband x10 4: Seated inversion with pink theraband x 10 5: Seated eversion with pink theraband 1x10 Skilled Intervention: Patient was educated in proper exercise technique and purpose for exercises. Skilled judgment was used in selection of appropriate interventions. Correct performance of therapeutic exercises was facilitated with verbal and visual cuing. Manual Therapy: 1: STM to plantar fascia x 10 minutes Skilled Intervention: Manual skills to improve joint mobility, ROM, and decrease pain. Utilized anatomy knowledge of the therapist, and assessment of patient's response to intervention. Neuromuscular Re-Education: 1: NBOS 2x30 seconds 2: Sidestepping on foam beams x 1 each direction no UE support 3: Tandem walking on foam beams x 2 rounds Skilled Intervention: Skilled judgment used to assess appropriate program for balance and coordination activity. Billing Therapeutic Exercise Treatment Minutes: 19 Manual TherapyTreatment Minutes: 10 Neuromuscular Re-Education Treatment Minutes: 15 Skilled Treatment Time Minutes (timed and untimed codes): 44 Total Session Time (minutes): 44 Session Start Time : 1713 Session Stop Time : 1757 Viridiana Martínez, BLANCO Sage, PT, DPT [facility] 06-12-2023 History of Present illness Narrative Program_ID:[id number] Access Code: [email or web address] URL: [email or web address] Date: 06-12-2023 Prepared By: Dayday Mortensen Program Notes Exercises - Supine 90/90 Sciatic Nerve Fortescue with Knee Flexion/Extension - 1 x daily - 7 x weekly - 2 sets - 10 reps - Supine Piriformis Stretch with Leg Straight - 1 x daily - 7 x weekly - 2 sets - 3 reps - Small Range Straight Leg Raise - 1 x daily - 7 x weekly - 2 sets - 10 reps - Long Sitting Ankle Pumps - 1 x daily - 7 x weekly - 2 sets - 10 reps - Towel Scrunches - 1 x daily - 7 x weekly - 2 sets - 10 reps - Seated Ankle Plantarflexion with Resistance - 1 x daily - 7 x weekly - 1-2 sets - 10 reps - Ankle Inversion with Resistance - 1 x daily - 7 x weekly - 1-2 sets - 10 reps - Ankle Eversion with Resistance - 1 x daily - 7 x weekly - 1-2 sets - 10 reps - Long Sitting Plantar Fascia Stretch with Towel - 1 x daily - 7 x weekly - 1-2 sets - 3 reps - Seated Slump Nerve Fortescue - 1 x daily - 7 x weekly - 1-2 sets - 10 reps Images from the original note were not included. Episode Visit Count: 4 Therapist That Will Accept/Oversee The Plan Of Care: Dayday Sage Start of Care Date: 05/05/23 Onset Date: 02/12/23 Patient Identified by Name and Date of : Yes REHABILITATION AND SPORTS THERAPY PHYSICAL THERAPY PROGRESS REPORT PLAN OF CARE UPDATE: Assessment: Khloe Flores demonstrates improvements in overall pain levels, decreased radicular symptoms, improved left ankle strength, and improved gait pattern. Ongoing left>right LE weakness, mild gait deviations, and inability to perform prior physical activities. She has progressed toward goals. Patient continues to present with impairments in balance, gait, overall function, sensation, strength, and symptom management that interfere with walking, working, walking in the community, stair negotiation, physical activities, recreational activities . Current prognosis is Good due to: acuteness of condition, good support system/ coping skills, current objective clinical presentation . She will benefit from continued skilled therapy services to meet the updated goals for this plan of care as noted below. Updated 06/12/2023 Goals for Episode of Care: created on 05/05/23 through 07/09/2023 [place] in home exercise program.-MET Patient will decrease pain rating by 2 points to meet minimal clinical important difference for numeric pain rating scale.--progressing Patient will demonstrate increase in LLE strength to at least 4+/5 during manual muscle testing in order to improve function for moderate to heavy functional tasks.--progressing Patient will perform >5 full excursion SL heel raises on the left to demonstrate increase PF strength.--progressing Patient will increase flexibility of left hamstrings to equal unaffected extremity/side to improve mechanics.--progressing Patient will walk >1 mile in 30 minutes to progress toward prior fitness Level.--partially met Improved LLE sensation.--not met Normal gait with no apparent foot drop, and improved toe off.--partially met Patient Goals: Be able to walk like she used to Planned Interventions, Frequency, and Duration: 1x/week, 4 weeks Total Number of Visits Planned: 4 Patient to be seen for Therapeutic exercise (57077), Neuromuscular re-education (06357), Manual therapy (89921), Therapeutic activities (10762), Self-senior care management (99956), Gait Training (86461), Body Mechanics Training, Functional training, General Conditioning, E-Stim Unattended (95272), E-Stim Attended/TENS (71106), Ultrasound (32089) PLAN FOR NEXT VISIT: Continue STM to plantar fascia, left ankle strengthening, assess response to seated nerve glide. Potentially trial side glide. SUBJECTIVE: Patient reports she feels she is making slow progress. She states she did walk 2 miles on Friday, and experienced increased numbess toward the end of the walk. Functional Limitations: walking, working, walking in the community, stair negotiation, physical activities, recreational activities Red Flags Vertebral Fracture Red Flags: Female Vertebral Fracture Clinical Reasoning: Proceed with caution due to the above (1-2) risk factors Abdominal Aortic Aneurysm Clinical Reasoning: No identified risk factors. Cancer Red Flags: Age >50 or <20 Cancer Clinical Reasoning: Proceed with caution Infection Clinical Reasoning: No identified risk factors. Cauda Equina Syndrome Clinical Reasoning: No identified risk factors. Red Flags - Cervical Cancer Red Flags: Age >50 or <20 Cancer Clinical Reasoning: Proceed with caution Infection Clinical Reasoning: No identified risk factors. Spine History Symptoms Location at Onset: Calf, Foot Symptoms Since Onset: Improving Pain is Worse Always: As the day progresses Sleep Affected by Pain: Not affected by pain Pain: Pain Pain Level: 1 (2-3/10 at night) Pain Location: Foot - Left, Leg - Left Description: Burning, Tingling Post Treatment Pain Post Treatment Pain Level: 2 Post Treatment Pain Location: Leg - Left PROMIS Scales 06/10/2023 05/16/2023 05/02/2023 Higher is Better Phys Func - Score 39 (moderate dysfunction) Phys Func - Percentile 14 Self-Eff Symptom - Score 54 (Average) 54 (Average) Self-Eff Symptom - Percentile 66 66 T-scores: mean of general population = 50. 5 points is clinically meaningfully difference Percentiles provide an indication of how the patient's score ranks in relation to the general population. Higher percentile rankings indicate better function/quality of life. 50th percentile is the average of the general population and indicates half of respondents had a worse score. OBJECTIVE MEASURES WITH LEVEL OF FUNCTION: Posture / Alignment Posture: Forward head, Rounded shoulders Sensation - Lumbar Sensation: Dermatomes Dermatomes Sensation: S1 Sole of foot/posterior leg, L5 Lateral Foot, L4 Great Toe (left leg) Repeated Test Movements - Lumbar RFIL - Symptoms During: no effect RFIL - Symptoms After: no effect REIL - Symptoms During: no effect REIL - Symptoms After: no effect LE Flexibility Flexibility: Hamstring Flexibility L Hamstring Flexibility: 12 degrees, increased radicular symptoms LE Strength R LE Strength: grossly 5/5 L Ankle Dorsiflexion (L4): 4/5 L Ankle Plantarflexion Functional Strength (S1): 2 through full excursion, 4 more through partial excursion L Ankle Inversion: 4/5 L Ankle Eversion: 3+/5 L Great Toes Extension (L5, S1): 4/5 Special Tests - Hip and Spine Hip and Spine Special Tests: SLR Test, SAW Test, FADDIR Test SLR Test: Left Positive SAW Test: Right Positive, Left Negative Gait Gait Observation: No noteable foot drop. Increased speed. Continues to roll onto lateral foot. TREATMENT: Therapeutic Exercise: 1: Re-assessment per above 2: HEP review 3: SKTC piriformis stretch x30 sec 4: Prone laying pillow under hips x2 minutes, no change in symptoms 5: GENYN pillow under hips x2 minutes, no change in symptoms 6: *Seated nerve glide x10 Skilled Intervention: Patient was educated in proper exercise technique and purpose for exercises. Reviewed and educated patient on additions/changes for home exercise program as above (*). Skilled judgment was used in selection of appropriate interventions. Provided written instruction for home exercise program to facilitate proper performance and compliance. Correct performance of therapeutic exercises was facilitated with verbal and visual cuing. Billing Therapeutic Exercise Treatment Minutes: 46 Skilled Treatment Time Minutes (timed and untimed codes): 46 Total Session Time (minutes): 46 Session Start Time : 153 Session Stop Time : 1618 Dayday Sage PT, DPT documented in this encounter [facility] 06-12-2023 Note HNO ID: [id number] Author: DAYDAY SAGE PT, DPT Service: ? Author Type: Physical Therapist Type: Progress Notes Filed: 06/12/2023 16:25 Note Text: Episode Visit Count: 4 Therapist That Will Accept/Oversee The Plan Of Care: Dayday Sage Start of Care Date: 05/05/23 Onset Date: 02/12/23 Patient Identified by Name and Date of : Yes REHABILITATION AND SPORTS THERAPY PHYSICAL THERAPY PROGRESS REPORT PLAN OF CARE UPDATE: Assessment: Khloe Flores demonstrates improvements in overall pain levels, decreased radicular symptoms, improved left ankle strength, and improved gait pattern. Ongoing left>right LE weakness, mild gait deviations, and inability to perform prior physical activities. She has progressed toward goals. Patient continues to present with impairments in balance, gait, overall function, sensation, strength, and symptom management that interfere with walking, working, walking in the community, stair negotiation, physical activities, recreational activities . Current prognosis is Good due to: acuteness of condition, good support system/ coping skills, current objective clinical presentation . She will benefit from continued skilled therapy services to meet the updated goals for this plan of care as noted below. Updated 06/12/2023 Goals for Episode of Care: created on 05/05/23 through 07/09/2023 [place] in home exercise program.-MET Patient will decrease pain rating by 2 points to meet minimal clinical important difference for numeric pain rating scale.--progressing Patient will demonstrate increase in LLE strength to at least 4+/5 during manual muscle testing in order to improve function for moderate to heavy functional tasks.--progressing Patient will perform >5 full excursion SL heel raises on the left to demonstrate increase PF strength.--progressing Patient will increase flexibility of left hamstrings to equal unaffected extremity/side to improve mechanics.--progressing Patient will walk >1 mile in 30 minutes to progress toward prior fitness Level.--partially met Improved LLE sensation.--not met Normal gait with no apparent foot drop, and improved toe off.--partially met Patient Goals: Be able to walk like she used to Planned Interventions, Frequency, and Duration: 1x/week, 4 weeks Total Number of Visits Planned: 4 Patient to be seen for Therapeutic exercise (26906), Neuromuscular re-education (32921), Manual therapy (50845), Therapeutic activities (27467), Self-senior care management (40956), Gait Training (52789), Body Mechanics Training, Functional training, General Conditioning, E-Stim Unattended (36109), E-Stim Attended/TENS (29870), Ultrasound (93798) PLAN FOR NEXT VISIT: Continue STM to plantar fascia, left ankle strengthening, assess response to seated nerve glide. Potentially trial side glide. SUBJECTIVE: Patient reports she feels she is making slow progress. She states she did walk 2 miles on Friday, and experienced increased numbess toward the end of the walk. Functional Limitations: walking, working, walking in the community, stair negotiation, physical activities, recreational activities Red Flags Vertebral Fracture Red Flags: Female Vertebral Fracture Clinical Reasoning: Proceed with caution due to the above (1-2) risk factors Abdominal Aortic Aneurysm Clinical Reasoning: No identified risk factors. Cancer Red Flags: Age >50 or <20 Cancer Clinical Reasoning: Proceed with caution Infection Clinical Reasoning: No identified risk factors. Cauda Equina Syndrome Clinical Reasoning: No identified risk factors. Red Flags - Cervical Cancer Red Flags: Age >50 or <20 Cancer Clinical Reasoning: Proceed with caution Infection Clinical Reasoning: No identified risk factors. Spine History Symptoms Location at Onset: Calf, Foot Symptoms Since Onset: Improving Pain is Worse Always: As the day progresses Sleep Affected by Pain: Not affected by pain Pain: Pain Pain Level: 1 (2-3/10 at night) Pain Location: Foot - Left, Leg - Left Description: Burning, Tingling Post Treatment Pain Post Treatment Pain Level: 2 Post Treatment Pain Location: Leg - Left PROMIS Scales 06/10/2023 05/16/2023 05/02/2023 Higher is Better Phys Func - Score 39 (moderate dysfunction) Phys Func - Percentile 14 Self-Eff Symptom - Score 54 (Average) 54 (Average) Self-Eff Symptom - Percentile 66 66 T-scores: mean of general population = 50. 5 points is clinically meaningfully difference Percentiles provide an indication of how the patient's score ranks in relation to the general population. Higher percentile rankings indicate better function/quality of life. 50th percentile is the average of the general population and indicates half of respondents had a worse score. OBJECTIVE MEASURES WITH LEVEL OF FUNCTION: Posture / Alignment Posture: Forward head, Rounded shoulders Sensation - Lumbar Sensation: Dermatomes Dermatomes Se (more content not included)... [facility] 06-09-2023 Note HNO ID: [id number] Author: JAN GEORGE, DO Service: ? Author Type: Physician Type: Progress Notes Filed: 06/09/2023 10:12 Note Text: CC: Khloe Flores is a 52 year old female who presents to the office for physical HPI: Hypothyroidism, taking levothyroxine and cytomel, no concerns TSH Date Value Ref Range Status 06/04/2023 0.245 (L) 0.270 - 4.200 mIU/L Final Free T3 3.4 06/04/2023 Free T4 Date Value Ref Range Status 06/04/2023 1.2 0.9 - 1.7 ng/dL Final Recently diagnosed Lyme disease and treated. Diagnosed with band worth syndrome and feels her gait is slowly improving. Symptoms are improving Rheumatoid arthritis, taking Xeljanz medication. 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 Glucose Date Value 06/04/2023 74 mg/dL 12/07/2019 73 MG/DL 08/19/2019 55 mg/dL Potassium (mmol/L) Date Value 06/04/2023 3.9 08/19/2019 3.9 K (mmol/L) Date Value 12/07/2019 3.5 Sodium (mmol/L) Date Value 06/04/2023 139 08/19/2019 141 NA (mmol/L) Date Value 12/07/2019 141 Chloride Date Value 06/04/2023 104 mmol/L 12/07/2019 106 MEQ/L 08/19/2019 103 mmol/L CO2 Date Value 06/04/2023 25 mmol/L 12/07/2019 31.0 MEQ/L 08/19/2019 27 mmol/L Creatinine Date Value 06/04/2023 0.57 mg/dL 12/07/2019 0.73 MG/DL 08/19/2019 0.72 mg/dL BUN Date Value 06/04/2023 10 mg/dL 12/07/2019 9 MG/DL 08/19/2019 7 mg/dL Anion Gap (mmol/L) Date Value 06/04/2023 10 08/19/2019 11 Calcium (mg/dL) Date Value 12/07/2019 9.5 08/19/2019 9.4 Calcium, Total (mg/dL) Date Value 06/04/2023 9.7 Protein, Total (g/dL) Date Value 06/04/2023 7.0 09/04/2005 8.1 Albumin Date Value 06/04/2023 4.7 g/dL 12/07/2019 4.3 gm/dL 09/04/2005 4.8 g/dL Bilirubin, Total (mg/dL) Date Value 06/04/2023 0.3 09/04/2005 0.6 Alkaline Phosphatase (U/L) Date Value 06/04/2023 68 09/04/2005 58 Alk Phos Total (U/L) Date Value 12/07/2019 65 AST (U/L) Date Value 06/04/2023 37 09/04/2005 31 AST (SGOT) (U/L) Date Value 12/07/2019 32 ALT (U/L) Date Value 06/04/2023 27 09/04/2005 38 ALT (SGPT) (U/L) Date Value 12/07/2019 36 PAST MEDICAL HISTORY Diagnosis Date Acute cholecystitis Hypothyroidism Hypothyroidism 03/23/2015 Localization-related (focal) (partial) epilepsy and epileptic syndromes with simple partial seizures, without mention of intractable epilepsy grand mal last one age 7 Lyme disease Microcalcifications of the breast 06/10/2013 Left breast Osteopenia of neck of left femur 2022 Other specified disorder of gallbladder Rheumatoid arthritis(714.0) Sjogren's syndrome (HCC) 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 Sjogrens Syndrome Unspecified hypothyroidism PAST SURGICAL HISTORY Procedure Laterality Date ARTHROSCOPY KNEE DIAGNOSTIC W/WO SYNOVIAL BX SPX Left 86,84 Arthroscopy, knee BIOPSY OF BREAST 2014 microcalcifications COLONOSCOPY EGD LAPS SURG CHOLECYSTECTOMY W/CHOLANGIOGRAPHY 02/27/2005 KAREN 08/01/2015 HYSTEROSCOPY, ABLATION ENDOMETRIAL DASHAASURE PAST SURGICAL HISTORY OF MOLE REMOVAL ON BACK X 2- benign PAST SURGICAL HISTORY OF wisdom teeth Social History: Social History Tobacco Use Smoking status: Never Smokeless tobacco: Never Vaping Use Vaping Use: Never used Substance Use Topics Alcohol use: No Drug use: No FAMILY HISTORY Problem Relation Age of Onset Cancer Mother blood- multiple mylomia other (multiple myoloma) Mother Heart Father 54 MA; Hypertension Maternal Grandmother Diabetes Maternal Grandmother Breast Cancer Maternal Grandmother other (Gallbladder Cancer) Maternal Grandfather 70 other (Lung and Brain Cancer) Paternal Grandfather 70 Seizures Daughter Resolved Seizures Son Resolved Breast Cancer Other 40 Breast Cancer Other 60 Breast Cancer Other 70 Current Outpatient prescriptions: estradiol 10 mcg vaginal suppository maintenance pack (IMVEXXY) Use 1 Suppository vaginally two times a week. levothyroxine (LEVOXYL) 100 mcg tablet Take 1 tablet by mouth once daily. Take on empty stomach. For Thyroid. tofacitinib (XELJANZ XR) 11 mg tablet, extended release montelukast (SINGULAIR) 10 mg tablet Take 1 tablet by mouth daily at bedtime. ondansetron orally disintegrating (ZOFRAN ODT) 4 mg disintegrating tablet Take 1 tablet by mouth every 8 hours as needed for nausea/vomiting. liothyronine (CYTOMEL) 5 mcg tablet Take 2 tablets by mouth daily in the late afternoon. levothyroxine (LEVOXYL) 100 mcg tablet Take 1 tablet by mouth daily before breakfast. Take on empty stomach. For Thyroid. (Patient not taking: Reported on 05/16/2023) cyanocobalamin, vitamin B-12, (VITAMIN B12 ORAL) Take by mouth. traMADOL 50 mg ORAL tablet Take 1 tablet by mouth. @ bedtime methotrexate 2.5 mg ORAL tablet Take by mouth. Take 7 tablets a w (more content not included)... [facility] 06-09-2023 History of Present illness Narrative CC: Khloe Flores is a 52 year old female who presents to the office for physical HPI: Hypothyroidism, taking levothyroxine and cytomel, no concerns TSH Date Value Ref Range Status 06/04/2023 0.245 (L) 0.270 - 4.200 mIU/L Final Free T3 3.4 06/04/2023 Free T4 Date Value Ref Range Status 06/04/2023 1.2 0.9 - 1.7 ng/dL Final Recently diagnosed Lyme disease and treated. Diagnosed with band worth syndrome and feels her gait is slowly improving. Symptoms are improving Rheumatoid arthritis, taking Xeljanz medication. 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 Glucose Date Value 06/04/2023 74 mg/dL 12/07/2019 73 MG/DL 08/19/2019 55 mg/dL Potassium (mmol/L) Date Value 06/04/2023 3.9 08/19/2019 3.9 K (mmol/L) Date Value 12/07/2019 3.5 Sodium (mmol/L) Date Value 06/04/2023 139 08/19/2019 141 NA (mmol/L) Date Value 12/07/2019 141 Chloride Date Value 06/04/2023 104 mmol/L 12/07/2019 106 MEQ/L 08/19/2019 103 mmol/L CO2 Date Value 06/04/2023 25 mmol/L 12/07/2019 31.0 MEQ/L 08/19/2019 27 mmol/L Creatinine Date Value 06/04/2023 0.57 mg/dL 12/07/2019 0.73 MG/DL 08/19/2019 0.72 mg/dL BUN Date Value 06/04/2023 10 mg/dL 12/07/2019 9 MG/DL 08/19/2019 7 mg/dL Anion Gap (mmol/L) Date Value 06/04/2023 10 08/19/2019 11 Calcium (mg/dL) Date Value 12/07/2019 9.5 08/19/2019 9.4 Calcium, Total (mg/dL) Date Value 06/04/2023 9.7 Protein, Total (g/dL) Date Value 06/04/2023 7.0 09/04/2005 8.1 Albumin Date Value 06/04/2023 4.7 g/dL 12/07/2019 4.3 gm/dL 09/04/2005 4.8 g/dL Bilirubin, Total (mg/dL) Date Value 06/04/2023 0.3 09/04/2005 0.6 Alkaline Phosphatase (U/L) Date Value 06/04/2023 68 09/04/2005 58 Alk Phos Total (U/L) Date Value 12/07/2019 65 AST (U/L) Date Value 06/04/2023 37 09/04/2005 31 AST (SGOT) (U/L) Date Value 12/07/2019 32 ALT (U/L) Date Value 06/04/2023 27 09/04/2005 38 ALT (SGPT) (U/L) Date Value 12/07/2019 36 PAST MEDICAL HISTORY Diagnosis Date Acute cholecystitis Hypothyroidism Hypothyroidism 03/23/2015 Localization-related (focal) (partial) epilepsy and epileptic syndromes with simple partial seizures, without mention of intractable epilepsy grand mal last one age 7 Lyme disease Microcalcifications of the breast 06/10/2013 Left breast Osteopenia of neck of left femur 2022 Other specified disorder of gallbladder Rheumatoid arthritis(714.0) Sjogren's syndrome (HCC) 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 Sjogrens Syndrome Unspecified hypothyroidism PAST SURGICAL HISTORY Procedure Laterality Date ARTHROSCOPY KNEE DIAGNOSTIC W/WO SYNOVIAL BX SPX Left 86,84 Arthroscopy, knee BIOPSY OF BREAST 2014 microcalcifications COLONOSCOPY EGD LAPS SURG CHOLECYSTECTOMY W/CHOLANGIOGRAPHY 02/27/2005 KAREN 08/01/2015 HYSTEROSCOPY, ABLATION ENDOMETRIAL DASHAASURE PAST SURGICAL HISTORY OF MOLE REMOVAL ON BACK X 2- benign PAST SURGICAL HISTORY OF wisdom teeth Social History: Social History Tobacco Use Smoking status: Never Smokeless tobacco: Never Vaping Use Vaping Use: Never used Substance Use Topics Alcohol use: No Drug use: No FAMILY HISTORY Problem Relation Age of Onset Cancer Mother blood- multiple mylomia other (multiple myoloma) Mother Heart Father 54 MA; Hypertension Maternal Grandmother Diabetes Maternal Grandmother Breast Cancer Maternal Grandmother other (Gallbladder Cancer) Maternal Grandfather 70 other (Lung and Brain Cancer) Paternal Grandfather 70 Seizures Daughter Resolved Seizures Son Resolved Breast Cancer Other 40 Breast Cancer Other 60 Breast Cancer Other 70 Current Outpatient prescriptions: estradiol 10 mcg vaginal suppository maintenance pack (IMVEXXY) Use 1 Suppository vaginally two times a week. levothyroxine (LEVOXYL) 100 mcg tablet Take 1 tablet by mouth once daily. Take on empty stomach. For Thyroid. tofacitinib (XELJANZ XR) 11 mg tablet, extended release montelukast (SINGULAIR) 10 mg tablet Take 1 tablet by mouth daily at bedtime. ondansetron orally disintegrating (ZOFRAN ODT) 4 mg disintegrating tablet Take 1 tablet by mouth every 8 hours as needed for nausea/vomiting. liothyronine (CYTOMEL) 5 mcg tablet Take 2 tablets by mouth daily in the late afternoon. levothyroxine (LEVOXYL) 100 mcg tablet Take 1 tablet by mouth daily before breakfast. Take on empty stomach. For Thyroid. (Patient not taking: Reported on 05/16/2023) cyanocobalamin, vitamin B-12, (VITAMIN B12 ORAL) Take by mouth. traMADOL 50 mg ORAL tablet Take 1 tablet by mouth. @ bedtime methotrexate 2.5 mg ORAL tablet Take by mouth. Take 7 tablets a week calcium carbonate/vitamin d3(CALCIUM 600 + D(3) 600 MG (1,500)-200 UNIT TAB) Take one(1) tablet twice daily. FOLIC ACID 1 MG TAB Take one(1) tablet daily. esomeprazole (NEXIUM) 40 mg ORAL CpDR Take one(1) capsule daily. L-LYSINE 500 MG TAB 2 tabs daily THERAPEUTIC MULTIVITAMIN TAB Take one(1) tablet daily. TYLENOL ARTHRITIS 650 MG TAB two tabs twice daily PLAQUENIL 200 MG TAB Take one tablet daily with breakfast and 1/2 tablet in the evening with dinner Allergies: ALLERGIES Allergen Reactions Erythromycin Vomiting Floxin [Ofloxacin] Intolerance Guaifenesin Swelling lips swell Mycinette [Cetylpyr* Intolerance Sulfa (Sulfonamide * Swelling face Vesicare [Solifenac* Swelling tingle tongue Z-Pack [Azithromyci* Diarrhea, Vomiting ROS: See HPI PE: 06/09/23 0736 BP: 128/80 Pulse: 86 Resp: 16 SpO2: 100% Weight: 63.5 kg (140 lb) Height: 162 cm (5' 3.78 ) Gen: A&O, NAD, non-toxic appearing, Pleasant, cooperative HEENT: NT/AC, wearing glasses, PERRLA, EOMs intact b/l, nares clear and patent b/l, pharynx without erythema, exudate or lesions. MMM, Uvula midline. EACs without erythema or debris. TMs pearly gleason with intact landmarks b/l. Neck: supple, No cervical LAD, no thyromegaly, no carotid bruits CV: RRR, normal S1 and S2, no murmurs, no gallops, no rubs, Pulses 2+ and symmetric in UE and LE b/l Lungs: normal respiratory effort, CTA b/l, no wheezing or rhonchi or rales Abd: soft, NT, ND, +BS, no hepatosplenomegaly MS: FROM all 4 extremities Neuro: CN II-XII intact b/l, strength 5/5 b/l UE and LE, DTRs 2/4 UE and LE, sensation intact. Skin: warm, dry, intact, No rashes or lesions on exposed skin. No edema, normal pulses ASSESSMENT/PLAN: 1. Well adult exam - ICD9: V70.0, ICD10: Z00.00 (primary diagnosis) - Counseled on healthy diet and regular exercise - Calcium intake with supplements or by diet of 1000 mg/day for under 50, 9498-0162 mg/day for 50+ 2. Hypothyroidism due to acquired atrophy of thyroid - ICD9: 244.8, 246.8, ICD10: E03.4 - Instructed patient on importance of taking on an empty stomach either first thing in the morning or at bedtime. - continue current dose of Synthroid and cytomel Recheck labs in August - TSH BLD - T4 FREE/FREE THYROX - T3 FREE BLD - CBC + DIFF - LIOTHYRONINE 5 MCG TABLET - LIOTHYRONINE 5 MCG TABLET 3. Dyslipidemia - ICD9: 272.4, ICD10: E78.5 - Control undetermined, due for labs - Counseled on healthy diet and regular exercise - Discussed need for and benefit of weight loss. BMI 24.20 kg/(m^2) - LIPID PANEL BASIC 4. Vitamin D deficiency - ICD9: 268.9, ICD10: E55.9 Continue supplement 5. Lyme disease - ICD9: 088.81, ICD10: A69.20 Symptoms improving, treated with doxycycline 6. Left hip pain - ICD9: 719.45, ICD10: M25.552 See above, secondary to Band worth syndrome 7. Rheumatoid arthritis of multiple sites with negative rheumatoid factor (HCC) - ICD9: 714.0, ICD10: M06.09 F/u with Le[employer] [facility] Finisher Jan George DO To ER if develops chest pain, shortness of breath, or severe worsening of symptoms. Discussed risks, benefits, alternatives, and potential side effects of medications. Patient expressed understanding and agreed with the plan. Jan George DO [address] [place] [address] documented in this encounter [facility] 05-27-2023 History of Present illness Narrative Program_ID:[id number] Access Code: [email or web address] URL: [email or web address] Date: 05-27-2023 Prepared By: Dayday Mortensen Program Notes Exercises - Supine 90/90 Sciatic Nerve Fortescue with Knee Flexion/Extension - 1 x daily - 7 x weekly - 2 sets - 10 reps - Supine Piriformis Stretch with Leg Straight - 1 x daily - 7 x weekly - 2 sets - 3 reps - Small Range Straight Leg Raise - 1 x daily - 7 x weekly - 2 sets - 10 reps - Long Sitting Ankle Pumps - 1 x daily - 7 x weekly - 2 sets - 10 reps - Towel Scrunches - 1 x daily - 7 x weekly - 2 sets - 10 reps - Seated Ankle Plantarflexion with Resistance - 1 x daily - 7 x weekly - 1-2 sets - 10 reps - Ankle Inversion with Resistance - 1 x daily - 7 x weekly - 1-2 sets - 10 reps - Ankle Eversion with Resistance - 1 x daily - 7 x weekly - 1-2 sets - 10 reps - Long Sitting Plantar Fascia Stretch with Towel - 1 x daily - 7 x weekly - 1 sets - 3 reps Episode Visit Count: 3 Therapist That Will Accept/Oversee The Plan Of Care: Dayday Sage Start of Care Date: 05/05/23 Onset Date: 02/12/23 Patient Identified by Name and Date of : Yes REHABILITATION AND SPORTS THERAPY PHYSICAL THERAPY TREATMENT NOTE ASSESSMENT: Khloe Flores tolerated the session with fatigue and expected muscle soreness. She demonstrated improvements in tolerance. The patient will continue to benefit from ongoing skilled physical therapy to progress toward set goals. PLAN FOR NEXT VISIT: Asses response to STM and increased strengthening of L ankle. SUBJECTIVE: Pt reports that everything is about the same, still some numbness. Pt demonstrates she is able to complete L single leg stance. She is able to bend her toes more. Pt can also do standing calf raises. Doing the band has made her ankle a little angry. More discomfort in the arch of her foot. Swelling and Red for LLE at end of her day. Pain: Pain Pain Level: 3 Pain Location: Foot - Left, Leg - Left Post Treatment Pain Post Treatment Pain Level: No Change Post Treatment Pain Location: Leg - Left OBJECTIVE MEASURES WITH LEVEL OF FUNCTION: TTP plantar fasica. TREATMENT: Therapeutic Exercise: 1: Seated towel scrunch for toe flexion strengthening x10 2: BAPS L3 x10 each CW,CCW, INV/EV, PF/DF 3: *Plantar fascia stretch in long sitting 3x30 seconds 4: Standing calf raises x10 5: Standing toe raises x 10 6: PF with pink theraband x10 7: Seated inversion with pink theraband x 10 8: Seated eversion with pink theraband 1x10 Skilled Intervention: Patient was educated in proper exercise technique and purpose for exercises. Reviewed and educated patient on additions/changes for home exercise program as above (*). Skilled judgment was used in selection of appropriate interventions. Provided written instruction for home exercise program to facilitate proper performance and compliance. Correct performance of therapeutic exercises was facilitated with verbal and visual cuing. Manual Therapy: 1: STM to plantar fascia x 10 minutes Skilled Intervention: Manual skills to improve joint mobility, ROM, and decrease pain. Utilized anatomy knowledge of the therapist, and assessment of patient's response to intervention. Billing Therapeutic Exercise Treatment Minutes: 38 Manual TherapyTreatment Minutes: 10 Skilled Treatment Time Minutes (timed and untimed codes): 48 Total Session Time (minutes): 48 Session Start Time : 1455 Session Stop Time : 1543 BLANCO Zavala PT, DPT documented in this encounter [facility] 05-27-2023 Note HNO ID: [id number] Author: DAYDAY SAGE, PT, DPT Service: ? Author Type: Physical Therapist Type: Progress Notes Filed: 05/28/2023 07:37 Note Text: Episode Visit Count: 3 Therapist That Will Accept/Oversee The Plan Of Care: Dayday Sage Start of Care Date: 05/05/23 Onset Date: 02/12/23 Patient Identified by Name and Date of : Yes REHABILITATION AND SPORTS THERAPY PHYSICAL THERAPY TREATMENT NOTE ASSESSMENT: Khloe Flores tolerated the session with fatigue and expected muscle soreness. She demonstrated improvements in tolerance. The patient will continue to benefit from ongoing skilled physical therapy to progress toward set goals. PLAN FOR NEXT VISIT: Asses response to STM and increased strengthening of L ankle. SUBJECTIVE: Pt reports that everything is about the same, still some numbness. Pt demonstrates she is able to complete L single leg stance. She is able to bend her toes more. Pt can also do standing calf raises. Doing the band has made her ankle a little angry. More discomfort in the arch of her foot. Swelling and Red for LLE at end of her day. Pain: Pain Pain Level: 3 Pain Location: Foot - Left, Leg - Left Post Treatment Pain Post Treatment Pain Level: No Change Post Treatment Pain Location: Leg - Left OBJECTIVE MEASURES WITH LEVEL OF FUNCTION: TTP plantar fasica. TREATMENT: Therapeutic Exercise: 1: Seated towel scrunch for toe flexion strengthening x10 2: BAPS L3 x10 each CW,CCW, INV/EV, PF/DF 3: *Plantar fascia stretch in long sitting 3x30 seconds 4: Standing calf raises x10 5: Standing toe raises x 10 6: PF with pink theraband x10 7: Seated inversion with pink theraband x 10 8: Seated eversion with pink theraband 1x10 Skilled Intervention: Patient was educated in proper exercise technique and purpose for exercises. Reviewed and educated patient on additions/changes for home exercise program as above (*). Skilled judgment was used in selection of appropriate interventions. Provided written instruction for home exercise program to facilitate proper performance and compliance. Correct performance of therapeutic exercises was facilitated with verbal and visual cuing. Manual Therapy: 1: STM to plantar fascia x 10 minutes Skilled Intervention: Manual skills to improve joint mobility, ROM, and decrease pain. Utilized anatomy knowledge of the therapist, and assessment of patient's response to intervention. Billing Therapeutic Exercise Treatment Minutes: 38 Manual TherapyTreatment Minutes: 10 Skilled Treatment Time Minutes (timed and untimed codes): 48 Total Session Time (minutes): 48 Session Start Time : 1455 Session Stop Time : 1543 Viridiana Camposreilly, ACCOUNTING CLERKS SUPERVISOR Dayday Sage, PT, DPT [facility] 05-27-2023 History of Present illness Narrative Radiology Service Progress Note PATIENT NAME: Khloe Flores DATE OF SERVICE: May 27, 2023 TIME: 2:56 PM PATIENT IDENTITY VERIFICATION COMPLETED USING TWO (2) IDENTIFIERS: Name and Date of confirmed by patient verbally. FALL SCREENING: Has the patient had 2 falls in the last year or 1 fall with injury or currently using an Ambulatory Assistive Device (Walker, Cane, Wheelchair, Crutches, etc.)? No PATIENT GENDER DATA: Female. status: : No status: NO. PATIENT RELEVANT IMPLANT DATA REVIEWED: Not Applicable PATIENT PRESENTS WITH AN IMPLANTABLE OR ATTACHED SPECIAL EVENTS PLANNER: No RADIOLOGY DEPARTMENT: Ultrasound PERIPHERAL IV DATA: Not applicable SIGNED BY: Kendra Francis RDMS RVT May 27, 2023 2:56 PM documented in this encounter [facility] 05-27-2023 Note HNO ID: [id number] Author: KENDRA FRANCIS RDMS Service: ? Author Type: Recruiting Associate Type: Progress Notes Filed: 05/27/2023 14:57 Note Text: Radiology Service Progress Note PATIENT NAME: Khloe Flores DATE OF SERVICE: May 27, 2023 TIME: 2:56 PM PATIENT IDENTITY VERIFICATION COMPLETED USING TWO (2) IDENTIFIERS: Name and Date of confirmed by patient verbally. FALL SCREENING: Has the patient had 2 falls in the last year or 1 fall with injury or currently using an Ambulatory Assistive Device (Walker, Cane, Wheelchair, Crutches, etc.)? No PATIENT GENDER DATA: Female. status: : No status: NO. PATIENT RELEVANT IMPLANT DATA REVIEWED: Not Applicable PATIENT PRESENTS WITH AN IMPLANTABLE OR ATTACHED SPECIAL EVENTS PLANNER: No RADIOLOGY DEPARTMENT: Ultrasound PERIPHERAL IV DATA: Not applicable SIGNED BY: Kendra Francis RDMS RVT May 27, 2023 2:56 PM [facility] 05-19-2023 Miscellaneous Notes Called and discussed MRI results with patient. No further line directed therapy needed at this time. She is to continue follow-up with neurology and is currently in physical therapy. Radha Fletcher MD, PhD Staff, Infectious Disease [facility] [phone] documented in this encounter [facility] 05-19-2023 History of Present illness Narrative Program_ID:[id number] Access Code: [email or web address] URL: [email or web address] Date: 05-19-2023 Prepared By: Dayday Mortensen Program Notes Exercises - Supine 90/90 Sciatic Nerve Fortescue with Knee Flexion/Extension - 1 x daily - 7 x weekly - 2 sets - 10 reps - Supine Piriformis Stretch with Leg Straight - 1 x daily - 7 x weekly - 2 sets - 3 reps - Small Range Straight Leg Raise - 1 x daily - 7 x weekly - 2 sets - 10 reps - Long Sitting Ankle Pumps - 1 x daily - 7 x weekly - 2 sets - 10 reps - Towel Scrunches - 1 x daily - 7 x weekly - 2 sets - 10 reps - Seated Ankle Plantarflexion with Resistance - 1 x daily - 7 x weekly - 1-2 sets - 10 reps - Ankle Inversion with Resistance - 1 x daily - 7 x weekly - 1-2 sets - 10 reps - Ankle Eversion with Resistance - 1 x daily - 7 x weekly - 1-2 sets - 10 reps Episode Visit Count: 2 Therapist That Will Accept/Oversee The Plan Of Care: Dayday Sage Start of Care Date: 05/05/23 Onset Date: 02/12/23 Patient Identified by Name and Date of : Yes REHABILITATION AND SPORTS THERAPY PHYSICAL THERAPY TREATMENT NOTE ASSESSMENT: Khloe Flores tolerated the session with fatigue and no issues. She demonstrated improvements in low back pain with SLR with pillow placed under pelvis. The patient will continue to benefit from ongoing skilled physical therapy to progress toward set goals. PLAN FOR NEXT VISIT: Asses response to ankle strengthening with pink theraband. SUBJECTIVE: Pt reports that she got her MRI and has other back issues going on. Pt reports that she delayed response of starting her exercise because her foot was very swollen and red (picture for proof) . Pt states that her foot and toe are still numb on the L foot. She has not had any swelling or pain in L foot with doing exercise at home. Pain in low back with L SLR. She is able to flex her great toe on the L now, minimal motion but more than at evaluation. Pain: Pain Pain Level: 3 Pain Location: Foot - Left, Leg - Left Post Treatment Pain Post Treatment Pain Level: No Change Post Treatment Pain Location: Leg - Left OBJECTIVE MEASURES WITH LEVEL OF FUNCTION: Improved great toe flexion with towel scrunch. TREATMENT: Therapeutic Exercise: 1: Supine ASLR 5 sec iso hold x10 bilat (modified with pillow uder pelivs, decreased pain) 2: Seated towel scrunch for toe flexion strengthening x10 (able to flex great toe on L) 3: Supine nerve glide 3 sec iso hold x10 left 4: Seated DF AROM 2x10 with slow eccentric control 5: *PF with pink theraband 2x10 6: *Seated inversion with pink theraband x 10 7: *Seated eversion with pink theraband 1x10 Skilled Intervention: Patient was educated in proper exercise technique and purpose for exercises. Skilled judgment was used in selection of appropriate interventions. Correct performance of therapeutic exercises was facilitated with verbal and visual cuing. Billing Therapeutic Exercise Treatment Minutes: 44 Self-Care/Home Management Treatment Minutes: 5 Skilled Treatment Time Minutes (timed and untimed codes): 49 Total Session Time (minutes): 49 Session Start Time : 921 Session Stop Time : 1010 Viridiana Martínez PTA documented in this encounter [facility] 05-19-2023 Note HNO ID: [id number] Author: DAYDAY SAGE, PT, DPT Service: ? Author Type: Retail Center Receptionist Type: Progress Notes Filed: 05/21/2023 12:24 Note Text: Episode Visit Count: 2 Therapist That Will Accept/Oversee The Plan Of Care: Dayday Sage Start of Care Date: 05/05/23 Onset Date: 02/12/23 Patient Identified by Name and Date of : Yes REHABILITATION AND SPORTS THERAPY PHYSICAL THERAPY TREATMENT NOTE ASSESSMENT: Khloe Flores tolerated the session with fatigue and no issues. She demonstrated improvements in low back pain with SLR with pillow placed under pelvis. The patient will continue to benefit from ongoing skilled physical therapy to progress toward set goals. PLAN FOR NEXT VISIT: Asses response to ankle strengthening with pink theraband. SUBJECTIVE: Pt reports that she got her MRI and has other back issues going on. Pt reports that she delayed response of starting her exercise because her foot was very swollen and red (picture for proof) . Pt states that her foot and toe are still numb on the L foot. She has not had any swelling or pain in L foot with doing exercise at home. Pain in low back with L SLR. She is able to flex her great toe on the L now, minimal motion but more than at evaluation. Pain: Pain Pain Level: 3 Pain Location: Foot - Left, Leg - Left Post Treatment Pain Post Treatment Pain Level: No Change Post Treatment Pain Location: Leg - Left OBJECTIVE MEASURES WITH LEVEL OF FUNCTION: Improved great toe flexion with towel scrunch. TREATMENT: Therapeutic Exercise: 1: Supine ASLR 5 sec iso hold x10 bilat (modified with pillow uder pelivs, decreased pain) 2: Seated towel scrunch for toe flexion strengthening x10 (able to flex great toe on L) 3: Supine nerve glide 3 sec iso hold x10 left 4: Seated DF AROM 2x10 with slow eccentric control 5: *PF with pink theraband 2x10 6: *Seated inversion with pink theraband x 10 7: *Seated eversion with pink theraband 1x10 Skilled Intervention: Patient was educated in proper exercise technique and purpose for exercises. Skilled judgment was used in selection of appropriate interventions. Correct performance of therapeutic exercises was facilitated with verbal and visual cuing. Billing Therapeutic Exercise Treatment Minutes: 44 Self-Care/Home Management Treatment Minutes: 5 Skilled Treatment Time Minutes (timed and untimed codes): 49 Total Session Time (minutes): 49 Session Start Time : 921 Session Stop Time : 101 Viridiana Martínez, BLANCO Sage, PT, DPT [facility] 05-19-2023 Miscellaneous Notes May 19, 2023 PID: [id number] Khloe MattJustin Flores [address] [place] [address] Dear Justin Flores, Your recent breast imaging exam on 05/16/2023 showed a possible finding that requires additional imaging studies for a complete evaluation. Most such findings are probably benign (not cancer). Your mammogram demonstrates that you have dense breast tissue, which could hide abnormalities. Dense breast tissue, in and of itself, is a relatively common condition. Therefore, this information is not provided to cause undue concern; rather, it is to raise your awareness and promote discussion with your health care provider regarding the presence of dense breast tissue in addition to other risk factors. If you have a healthcare provider who ordered/prescribed your screening mammogram: Please call [phone] or EXT: [phone] to schedule an appointment for your additional imaging (if you have not already done so). If you DO NOT have a healthcare provider (ie you did not have an order/prescription for your screening mammogram): Please call to schedule an appointment for your additional imaging (if you have not already done so). You must have an order/prescription from your physician when calling to schedule your appointment. If your order/prescription is not electronic, you must bring the hard copy with you on the day of your exam to avoid delays. Your imaging studies and reports are kept on file at [facility] as part of your permanent medical record, and are available for your continuing care. Thank you for allowing us to help in meeting your health care needs. Sincerely, Dr. Medley Interpreting Radiologist [facility] (Additional imaging) documented in this encounter [facility] 02-16-2024 Miscellaneous Notes I spoke to Mrs. Flores about her MRI lumbar spine findings. 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 It does not appear to be Bannwarth's syndrome (no contrast enhancement). She has started PT for her painful paresthesias, numbness and weakness and will see me in follow up on 06/27/23. I am most concerned about the weakness - at least as it affects her activities (eg, standing on one leg). If her weakness improves adequately, then it might be possible to treat her pain/numbness with medication (eg gabapentin, SNRI), nerve root blocks, or both. Jerome Eng MD documented in this encounter [facility] 05-16-2023 History of Present illness Narrative Radiology Service Progress Note DATE OF SERVICE: May 16, 2023 TIME: 10:52 AM PATIENT IDENTITY VERIFICATION COMPLETED USING TWO (2) STANDARD IDENTIFIERS: Name and Date of confirmed by patient verbally. FALL SCREENING: Has the patient had 2 falls in the last year or 1 fall with injury or currently using an Ambulatory Assistive Device (Walker, Cane, Wheelchair, Crutches, etc.)? No PATIENT GENDER DATA: Female. status: : No status: NO. PATIENT RELEVANT IMPLANT DATA REVIEWED: Yes PATIENT PRESENTS WITH AN IMPLANTABLE OR ATTACHED SPECIAL EVENTS PLANNER: No ALLERGIES: Reviewed and unchanged CONTRAST ALLERGY: NO. EXAM: MRI - CONTRAST TYPE: GROUP II PERIPHERAL IV DATA: Ambulatory: A peripheral IV was started in the Right antecubital site with a Angio cath: 22 gauge. RADIOLOGY DEPARTMENT: MR; Exam(s) Completed: Spine: Lumbar spine SIGNATURE: RT Franky(Matt) PATIENT NAME: Khloe Flores DATE: May 16, 2023 TIME: 10:52 AM documented in this encounter [facility] 05-16-2023 Note HNO ID: [id number] Author: DELORIS MCLEAN RT(Matt) Service: ? Author Type: Technologist Type: Progress Notes Filed: 05/16/2023 10:53 Note Text: Radiology Service Progress Note DATE OF SERVICE: May 16, 2023 TIME: 10:52 AM PATIENT IDENTITY VERIFICATION COMPLETED USING TWO (2) STANDARD IDENTIFIERS: Name and Date of confirmed by patient verbally. FALL SCREENING: Has the patient had 2 falls in the last year or 1 fall with injury or currently using an Ambulatory Assistive Device (Walker, Cane, Wheelchair, Crutches, etc.)? No PATIENT GENDER DATA: Female. status: : No status: NO. PATIENT RELEVANT IMPLANT DATA REVIEWED: Yes PATIENT PRESENTS WITH AN IMPLANTABLE OR ATTACHED SPECIAL EVENTS PLANNER: No ALLERGIES: Reviewed and unchanged CONTRAST ALLERGY: NO. EXAM: MRI - CONTRAST TYPE: GROUP II PERIPHERAL IV DATA: Ambulatory: A peripheral IV was started in the Right antecubital site with a Angio cath: 22 gauge. RADIOLOGY DEPARTMENT: MR; Exam(s) Completed: Spine: Lumbar spine SIGNATURE: RT Franky(Matt) PATIENT NAME: Khloe Flores DATE: May 16, 2023 TIME: 10:52 AM [facility] 05-16-2023 Note HNO ID: [id number] Author: KENDRA MILLAN APRN.CNM Service: ? Author Type: Personal Protection Specialist Type: Progress Notes Filed: 05/16/2023 12:16 Note Text: Khloe is a 52 year old who presents for an annual gynecologic exam without complaints. Postmenopausal: Yes since 2015 HRT use: No. Last Pap: 02/15/2020 normal HPV: 02/14/2020 negative History of abnormal pap: No Last mammogram: 2022 normal History of abnormal mammogram: Yes Hot flashes: Yes Night sweats: Yes Vaginal dryness: Yes Exercise: 5 times a week for 30 minutes. 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 History Comments: Sexual Activity: Yes; Male; HUSBANDS VASECTOMY Contraception: Vasectomy PAST MEDICAL HISTORY Diagnosis Date Acute cholecystitis Hypothyroidism Hypothyroidism 03/23/2015 Localization-related (focal) (partial) epilepsy and epileptic syndromes with simple partial seizures, without mention of intractable epilepsy grand mal last one age 7 Lyme disease Microcalcifications of the breast 06/10/2013 Left breast Osteopenia of neck of left femur 2022 Other specified disorder of gallbladder Rheumatoid arthritis(714.0) Sjogren's syndrome (HCC) 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 Sjogrens Syndrome Unspecified hypothyroidism PAST SURGICAL HISTORY Procedure Laterality Date ARTHROSCOPY KNEE DIAGNOSTIC W/WO SYNOVIAL BX SPX Left 86,84 Arthroscopy, knee BIOPSY OF BREAST 2014 microcalcifications COLONOSCOPY EGD LAPS SURG CHOLECYSTECTOMY W/CHOLANGIOGRAPHY 02/27/2005 NOVASURE 08/01/2015 HYSTEROSCOPY, ABLATION ENDOMETRIAL NOVASURE PAST SURGICAL HISTORY OF MOLE REMOVAL ON BACK X 2- benign PAST SURGICAL HISTORY OF wisdom teeth FAMILY HISTORY Problem Relation Age of Onset Heart Father 54 MA; Cancer Mother blood- multiple mylomia other (multiple myoloma) Mother Hypertension Maternal Grandmother Diabetes Maternal Grandmother Seizures Son Resolved Seizures Daughter Resolved other (Gallbladder Cancer) Maternal Grandfather 70 other (Lung and Brain Cancer) Paternal Grandfather 70 Breast Cancer Other 40 Breast Cancer Other 60 Breast Cancer Other 70 SOCIAL HISTORY Social History Tobacco Use Smoking status: Never Smokeless tobacco: Never Vaping Use Vaping Use: Never used Substance Use Topics Alcohol use: No Drug use: No REVIEW OF SYSTEMS Abdomen: No abdominal pain, nausea, vomiting, diarrhea, or constipation. No bloating, early satiety, indigestion, or increased flatulence. Bladder: No dysuria, gross hematuria, urinary frequency, urinary urgency, or incontinence Breast: No breast lumps, nipple d/c, overlying skin changes, redness or skin retraction Allergies and current medication updated:Yes EXAM: BP 112/68 Ht 5' 3.5 (1.61m) Wt 141 lb (64.0kg) LMP 07/05/2015 BMI 24.58 kg/(m2). GENERAL: pleasant, female in no apparent distress HEENT: Normocephalic, atraumatic, mucus membranes moist, and no lesions NECK: Supple, full range of motion, no adenopathy, and thyroid normal DERMATOLOGY: Normal, without lesions, non-icteric, and non-hirsute BREAST: soft, non-tender, symmetric, no dominant mass, normal nipple-areolar complex, no lymphadenopathy, and no nipple discharge CHEST: Clear to auscultation, Normal inspiratory effort, Regular rate and rhythm, and No murmurs, clicks, rubs or gallops ABDOMEN: soft, non-tender, and no masses PELVIC: external genitalia normal, normal Bartholin's glands, urethra, Metaline's glands, no vulvar lesions, no cervical lesions, good vaginal support, physiologic discharge present, normal appearing perineal body and perianal region BIMANUAL: uterus normal size, shape and consistency, no adnexal masses, and non-tender RECTOVAGINAL: deferred. NEURO: alert and oriented x3 and alert and oriented x3,exam grossly non-focal EXTREMITIES: normal, some weakness left foot since Lyme Disease. Is receiving PT. Having MRI today ASSESSMENT/PLAN: 1. Encounter for gynecological examination (general) (routine) without abnormal findings - ICD9: V72.31, ICD10: Z01.419 (primary diagnosis) - Completed pelvic and breast exam - Encouraged monthly BSE - Follow up for annual exam in one year. - KEILY SCREENING W DOROTEO 2. Encounter for screening mammogram for breast cancer - ICD9: V76.12, ICD10: Z12.31 - Completed pelvic and breast exam - Encouraged monthly BSE - Follow up for annual exam in one year. - KEILY SCREENING W DOROTEO 3. Postmenopausal - ICD9: V49.81, ICD10: Z78.0 Continue plant based diet, consuming Soy products regularly and decreasing coffee intake to diminish hot flashes 4. (more content not included)... [facility] 05-16-2023 History of Present illness Narrative Khloe is a 52 year old who presents for an annual gynecologic exam without complaints. Postmenopausal: Yes since 2016 HRT use: No. Last Pap: 02/15/2020 normal HPV: 02/14/2020 negative History of abnormal pap: No Last mammogram: 2022 normal History of abnormal mammogram: Yes Hot flashes: Yes Night sweats: Yes Vaginal dryness: Yes Exercise: 5 times a week for 30 minutes. 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 History Comments: Sexual Activity: Yes; Male; HUSBANDS VASECTOMY Contraception: Vasectomy PAST MEDICAL HISTORY Diagnosis Date Acute cholecystitis Hypothyroidism Hypothyroidism 03/23/2015 Localization-related (focal) (partial) epilepsy and epileptic syndromes with simple partial seizures, without mention of intractable epilepsy grand mal last one age 7 Lyme disease Microcalcifications of the breast 06/10/2013 Left breast Osteopenia of neck of left femur 2022 Other specified disorder of gallbladder Rheumatoid arthritis(714.0) Sjogren's syndrome (HCC) 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 Sjogrens Syndrome Unspecified hypothyroidism PAST SURGICAL HISTORY Procedure Laterality Date ARTHROSCOPY KNEE DIAGNOSTIC W/WO SYNOVIAL BX SPX Left 86,84 Arthroscopy, knee BIOPSY OF BREAST 2014 microcalcifications COLONOSCOPY EGD LAPS SURG CHOLECYSTECTOMY W/CHOLANGIOGRAPHY 02/27/2005 NOVASURE 08/01/2015 HYSTEROSCOPY, ABLATION ENDOMETRIAL NOVASURE PAST SURGICAL HISTORY OF MOLE REMOVAL ON BACK X 2- benign PAST SURGICAL HISTORY OF wisdom teeth FAMILY HISTORY Problem Relation Age of Onset Heart Father 54 MA; Cancer Mother blood- multiple mylomia other (multiple myoloma) Mother Hypertension Maternal Grandmother Diabetes Maternal Grandmother Seizures Son Resolved Seizures Daughter Resolved other (Gallbladder Cancer) Maternal Grandfather 70 other (Lung and Brain Cancer) Paternal Grandfather 70 Breast Cancer Other 40 Breast Cancer Other 60 Breast Cancer Other 70 SOCIAL HISTORY Social History Tobacco Use Smoking status: Never Smokeless tobacco: Never Vaping Use Vaping Use: Never used Substance Use Topics Alcohol use: No Drug use: No REVIEW OF SYSTEMS Abdomen: No abdominal pain, nausea, vomiting, diarrhea, or constipation. No bloating, early satiety, indigestion, or increased flatulence. Bladder: No dysuria, gross hematuria, urinary frequency, urinary urgency, or incontinence Breast: No breast lumps, nipple d/c, overlying skin changes, redness or skin retraction Allergies and current medication updated:Yes EXAM: BP 112/68 Ht 5' 3.5 (1.61m) Wt 141 lb (64.0kg) LMP 07/05/2015 BMI 24.58 kg/(m^2). GENERAL: pleasant, female in no apparent distress HEENT: Normocephalic, atraumatic, mucus membranes moist, and no lesions NECK: Supple, full range of motion, no adenopathy, and thyroid normal DERMATOLOGY: Normal, without lesions, non-icteric, and non-hirsute BREAST: soft, non-tender, symmetric, no dominant mass, normal nipple-areolar complex, no lymphadenopathy, and no nipple discharge CHEST: Clear to auscultation, Normal inspiratory effort, Regular rate and rhythm, and No murmurs, clicks, rubs or gallops ABDOMEN: soft, non-tender, and no masses PELVIC: external genitalia normal, normal Bartholin's glands, urethra, Metaline's glands, no vulvar lesions, no cervical lesions, good vaginal support, physiologic discharge present, normal appearing perineal body and perianal region BIMANUAL: uterus normal size, shape and consistency, no adnexal masses, and non-tender RECTOVAGINAL: deferred. NEURO: alert and oriented x3 and alert and oriented x3,exam grossly non-focal EXTREMITIES: normal, some weakness left foot since Lyme Disease. Is receiving PT. Having MRI today ASSESSMENT/PLAN: 1. Encounter for gynecological examination (general) (routine) without abnormal findings - ICD9: V72.31, ICD10: Z01.419 (primary diagnosis) - Completed pelvic and breast exam - Encouraged monthly BSE - Follow up for annual exam in one year. - KEILY SCREENING W DOROTEO 2. Encounter for screening mammogram for breast cancer - ICD9: V76.12, ICD10: Z12.31 - Completed pelvic and breast exam - Encouraged monthly BSE - Follow up for annual exam in one year. - KEILY SCREENING W DOROTEO 3. Postmenopausal - ICD9: V49.81, ICD10: Z78.0 Continue plant based diet, consuming Soy products regularly and decreasing coffee intake to diminish hot flashes 4. Vaginal atrophy - ICD9: 627.3, ICD10: N95.2 Refill Imvexxy for vaginal dryness and continue to use Coconut oil for regular moisturizing. 4. Family history of breast cancer - ICD9: V16.3, ICD10: Z80.3 Discussed genetic testing, had reviewed in the past but genetic counseling did not recommend due to family distance. Still and option and patient considering. 5. Health maintenance: Pap done with HPV. Mammogram ordered Nutrition, exercise and routine health maintenance exams reviewed. Follow up one year or sooner as needed Matt Millan APRN.CNM documented in this encounter [facility] 05-06-2023 Miscellaneous Notes Patient has been identified by name and date of : Yes, Patient phones for refill(s): Requested Prescriptions Pending Prescriptions Disp Refills levothyroxine (LEVOXYL) 100 mcg tablet 90 tablet 1 Sig: Take 1 tablet by mouth once daily. Take on empty stomach. For Thyroid. Date of last office visit in primary care: 03/05/2023 Date of next office visit in primary care: 06/09/2023 Please advise. Thank you. Rajani Grace LPN. documented in this encounter [facility] 05-05-2023 Note HNO ID: [id number] Author: DAYDAY SAGE, PT, DPT Service: ? Author Type: Physical Therapist Type: Progress Notes Filed: 05/05/2023 17:43 Note Text: Episode Visit Count: 1 Therapist That Will Accept/Oversee The Plan Of Care: Dayday Sage Start of Care Date: 05/05/23 Onset Date: 02/12/23 Patient Identified by Name and Date of : Yes REHABILITATION AND SPORTS THERAPY PHYSICAL THERAPY EVALUATION PLAN OF CARE: Assessment: Khloe Flores presents with diagnosis of LLE weakness and radiculopathy that interferes with walking, working, walking in the community, stair negotiation, physical activities, recreational activities . She presents with impairments in balance, flexibility, gait, independence in exercise, overall function, sensation, strength, and symptom management. PROMIS? (Patient-Reported Outcomes Measurement Information System) scores were reviewed and physical function domain identified as a rehabilitation concern. Prognosis for therapy is Good due to: acuteness of condition, good support system/ coping skills, current objective clinical presentation . She will benefit from skilled therapy services to meet the goals established for this plan of care as noted below. Goals for Episode of Care: created on 05/05/23 through 06/02/23 [place] in home exercise program. Patient will decrease pain rating by 2 points to meet minimal clinical important difference for numeric pain rating scale. Patient will demonstrate increase in LLE strength to at least 4+/5 during manual muscle testing in order to improve function for moderate to heavy functional tasks. Patient will perform >5 full excursion SL heel raises on the left to demonstrate increase PF strength. Patient will increase flexibility of left hamstrings to equal unaffected extremity/side to improve mechanics. Patient will walk >1 mile in 30 minutes to progress toward prior fitness level. Improved LLE sensation. Normal gait with no apparent foot drop, and improved toe off. Patient Goals: Be able to walk like she used to Planned Interventions, Frequency, and Duration: Current Frequency: 1x/week Duration: 4 weeks Total Number of Visits Planned: 4 Planned Treatment Interventions: Therapeutic exercise (33413), Neuromuscular re-education (43353), Manual therapy (59397), Therapeutic activities (07005), Self-senior care management (86197), Gait Training (03528), Body Mechanics Training, Functional training, General Conditioning, E-Stim Unattended (44217), E-Stim Attended/TENS (40321), Ultrasound (83568) PLAN FOR NEXT VISIT: Progress ankle strengthening, nerve glides, assess SL balance Patient demonstrates good understanding of plan of care and treatment. The above goals and plan of care were discussed and agreed upon by patient/family. SUBJECTIVE: Patient presenting to PT with order for LE radiculopathy. She has a diagnosis of Lyme's disease since February of 2023. Onset of symptoms of LLE weakness and neuropathy starting January 2023. Since Lyme's diagnosis, doxicycline has reduced her hip pain, however, she continues to have LLE weakness and neuropathy. 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 Per patient report, she is only able to walk .78 miles in 36 minutes. 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 Cancer Red Flags: Age >50 or <20 Cancer Clinical Reasoning: Proceed with caution Infection Clinical Reasoning: No identified risk factors. Cauda Equina Syndrome Clinical Reasoning: No identified risk factors. Red Flags - Cervical Cancer Red Flags: Age >50 or <20 Cancer Clinical Reasoning: Proceed with caution Infection Clinical Reasoning: No identified risk factors. Spine History Symptoms Location at Onset: Calf, Foot Pain: Pain Pain Level: 3 Pain Location: Foot - Left, Leg - Left Description: Burning Post Treatment Pain Post Treatment Pain Level: Worse Post Treatment Pain Location: Leg - Left PROMIS Scales Higher is Better 05/02/2023 04/21/2023 Phys Func - Score - 33 (moderate dysfunction) Phys Func - Percentile - 4% Self-Eff Symptom - Score 54 (Average) - Self- (more content not included)... [facility] 05-01-2023 Note HNO ID: [id number] Author: RADHA FLETCHER MD Service: ? Author Type: Physician Type: Progress Notes Filed: 05/05/2023 10:24 Note Text: VIRTUAL VISIT PROGRESS NOTE This is a virtual visit using [employer] Video Visit. It required patient-provider interaction for the medical decision making as documented below. I have communicated my name and active licensure. The patient's identity and physical location were verified at the time of this visit. Either the patient or their legal advertising account representative has been informed of the risks and benefits of -- and alternatives to -- treatment through a remote evaluation and consents to proceed with the evaluation remotely. Khloe Flores is a 52 year old female with a hx of RA and sjogren's syndrome (on methotrexate, plaquenil, xeljanz) seen for follow up regarding her lyme disease complicated by neuropathy of the left leg/foot. Please refer to my prior ID notes for historical details. She presents for virtual follow up today. On assessment she denies any fevers, chills, or new rash. She continues to have numbness and tingling sensations with associated weakness of the left foot. She was seen by neurology, per my request, who recommended an MRI for further evaluation. HISTORY REVIEWED (electronic chart updated): PAST MEDICAL HISTORY Diagnosis Date Acute cholecystitis Hypothyroidism Hypothyroidism 03/23/2015 Localization-related (focal) (partial) epilepsy and epileptic syndromes with simple partial seizures, without mention of intractable epilepsy grand mal last one age 7 Microcalcifications of the breast 06/10/2013 Left breast Osteopenia of neck of left femur 2022 Other specified disorder of gallbladder Rheumatoid arthritis(714.0) Sjogren's syndrome (HCC) 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 Sjogrens Syndrome Unspecified hypothyroidism PAST SURGICAL HISTORY Procedure Laterality Date ARTHROSCOPY KNEE DIAGNOSTIC W/WO SYNOVIAL BX SPX Left 86,84 Arthroscopy, knee BIOPSY OF BREAST 2013 microcalcifications COLONOSCOPY EGD LAPS SURG CHOLECYSTECTOMY W/CHOLANGIOGRAPHY 02/27/2005 NOVASURE 08/01/2015 HYSTEROSCOPY, ABLATION ENDOMETRIAL NOVASURE PAST SURGICAL HISTORY OF MOLE REMOVAL ON BACK X 2- benign PAST SURGICAL HISTORY OF wisdom teeth FAMILY HISTORY Problem Relation Age of Onset Heart Father 54 MA; Cancer Mother blood- multiple mylomia other (multiple myoloma) Mother Hypertension Maternal Grandmother Diabetes Maternal Grandmother Seizures Son Resolved Seizures Daughter Resolved other (Gallbladder Cancer) Maternal Grandfather 70 other (Lung and Brain Cancer) Paternal Grandfather 70 Breast Cancer Other 40 Breast Cancer Other 60 Breast Cancer Other 70 Social History Tobacco Use Smoking status: Never Smokeless tobacco: Never Vaping Use Vaping Use: Never used Substance Use Topics Alcohol use: No Drug use: No Current Outpatient Medications Medication Sig tofacitinib (XELJANZ XR) 11 mg tablet, extended release montelukast (SINGULAIR) 10 mg tablet Take 1 tablet by mouth daily at bedtime. ondansetron orally disintegrating (ZOFRAN ODT) 4 mg disintegrating tablet Take 1 tablet by mouth every 8 hours as needed for nausea/vomiting. liothyronine (CYTOMEL) 5 mcg tablet Take 2 tablets by mouth daily in the late afternoon. levothyroxine (LEVOXYL) 100 mcg tablet Take 1 tablet by mouth once daily. Take on empty stomach. For Thyroid. levothyroxine (LEVOXYL) 100 mcg tablet Take 1 tablet by mouth daily before breakfast. Take on empty stomach. For Thyroid. estradiol 10 mcg vaginal suppository maintenance pack (IMVEXXY) Use 1 Suppository vaginally two times a week. cyanocobalamin, vitamin B-12, (VITAMIN B12 ORAL) Take by mouth. traMADOL 50 mg ORAL tablet Take 1 tablet by mouth. @ bedtime methotrexate 2.5 mg ORAL tablet Take by mouth. Take 7 tablets a week calcium carbonate/vitamin d3(CALCIUM 600 + D(3) 600 MG (1,500)-200 UNIT TAB) Take one(1) tablet twice daily. FOLIC ACID 1 MG TAB Take one(1) tablet daily. esomeprazole (NEXIUM) 40 mg ORAL CpDR Take one(1) capsule daily. L-LYSINE 500 MG TAB 2 tabs daily THERAPEUTIC MULTIVITAMIN TAB Take one(1) tablet daily. TYLENOL ARTHRITIS 650 MG TAB two tabs twice daily PLAQUENIL 200 MG TAB Take one tablet daily with breakfast and 1/2 tablet in the evening with dinner No current facility-administered medications for this visit. ALLERGIES Allergen Reactions Erythromycin Vomiting Floxin [Ofloxacin] Intolerance Guaifenesin Swelling lips swell Mycinette [Cetylpyr* Intolerance Sulfa (Sulfonamide * Swelling face Vesicare [Solifenac* Swelling tingle tongue Z-Pack [Azithromyci* Diarrhea, Vomiting REVIEW OF SYSTEMS: PHYSICAL EXAMINATION: VIDEO EXAM: (if completed, performed via video enabled technology) (more content not included)... [facility] 05-01-2023 History of Present illness Narrative VIRTUAL VISIT PROGRESS NOTE This is a virtual visit using [employer] Zoom Video Visit. It required patient-provider interaction for the medical decision making as documented below. I have communicated my name and active licensure. The patient's identity and physical location were verified at the time of this visit. Either the patient or their legal advertising account representative has been informed of the risks and benefits of -- and alternatives to -- treatment through a remote evaluation and consents to proceed with the evaluation remotely. Khloe Flores is a 52 year old female with a hx of RA and sjogren's syndrome (on methotrexate, plaquenil, xeljanz) seen for follow up regarding her lyme disease complicated by neuropathy of the left leg/foot. Please refer to my prior ID notes for historical details. She presents for virtual follow up today. On assessment she denies any fevers, chills, or new rash. She continues to have numbness and tingling sensations with associated weakness of the left foot. She was seen by neurology, per my request, who recommended an MRI for further evaluation. HISTORY REVIEWED (electronic chart updated): PAST MEDICAL HISTORY Diagnosis Date Acute cholecystitis Hypothyroidism Hypothyroidism 03/23/2015 Localization-related (focal) (partial) epilepsy and epileptic syndromes with simple partial seizures, without mention of intractable epilepsy grand mal last one age 7 Microcalcifications of the breast 06/10/2013 Left breast Osteopenia of neck of left femur 2022 Other specified disorder of gallbladder Rheumatoid arthritis(714.0) Sjogren's syndrome (HCC) 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 Sjogrens Syndrome Unspecified hypothyroidism PAST SURGICAL HISTORY Procedure Laterality Date ARTHROSCOPY KNEE DIAGNOSTIC W/WO SYNOVIAL BX SPX Left 86,84 Arthroscopy, knee BIOPSY OF BREAST 2014 microcalcifications COLONOSCOPY EGD LAPS SURG CHOLECYSTECTOMY W/CHOLANGIOGRAPHY 02/27/2005 NOVASURE 08/01/2015 HYSTEROSCOPY, ABLATION ENDOMETRIAL NOVASURE PAST SURGICAL HISTORY OF MOLE REMOVAL ON BACK X 2- benign PAST SURGICAL HISTORY OF wisdom teeth FAMILY HISTORY Problem Relation Age of Onset Heart Father 54 MA; Cancer Mother blood- multiple mylomia other (multiple myoloma) Mother Hypertension Maternal Grandmother Diabetes Maternal Grandmother Seizures Son Resolved Seizures Daughter Resolved other (Gallbladder Cancer) Maternal Grandfather 70 other (Lung and Brain Cancer) Paternal Grandfather 70 Breast Cancer Other 40 Breast Cancer Other 60 Breast Cancer Other 70 Social History Tobacco Use Smoking status: Never Smokeless tobacco: Never Vaping Use Vaping Use: Never used Substance Use Topics Alcohol use: No Drug use: No Current Outpatient Medications Medication Sig tofacitinib (XELJANZ XR) 11 mg tablet, extended release montelukast (SINGULAIR) 10 mg tablet Take 1 tablet by mouth daily at bedtime. ondansetron orally disintegrating (ZOFRAN ODT) 4 mg disintegrating tablet Take 1 tablet by mouth every 8 hours as needed for nausea/vomiting. liothyronine (CYTOMEL) 5 mcg tablet Take 2 tablets by mouth daily in the late afternoon. levothyroxine (LEVOXYL) 100 mcg tablet Take 1 tablet by mouth once daily. Take on empty stomach. For Thyroid. levothyroxine (LEVOXYL) 100 mcg tablet Take 1 tablet by mouth daily before breakfast. Take on empty stomach. For Thyroid. estradiol 10 mcg vaginal suppository maintenance pack (IMVEXXY) Use 1 Suppository vaginally two times a week. cyanocobalamin, vitamin B-12, (VITAMIN B12 ORAL) Take by mouth. traMADOL 50 mg ORAL tablet Take 1 tablet by mouth. @ bedtime methotrexate 2.5 mg ORAL tablet Take by mouth. Take 7 tablets a week calcium carbonate/vitamin d3(CALCIUM 600 + D(3) 600 MG (1,500)-200 UNIT TAB) Take one(1) tablet twice daily. FOLIC ACID 1 MG TAB Take one(1) tablet daily. esomeprazole (NEXIUM) 40 mg ORAL CpDR Take one(1) capsule daily. L-LYSINE 500 MG TAB 2 tabs daily THERAPEUTIC MULTIVITAMIN TAB Take one(1) tablet daily. TYLENOL ARTHRITIS 650 MG TAB two tabs twice daily PLAQUENIL 200 MG TAB Take one tablet daily with breakfast and 1/2 tablet in the evening with dinner No current facility-administered medications for this visit. ALLERGIES Allergen Reactions Erythromycin Vomiting Floxin [Ofloxacin] Intolerance Guaifenesin Swelling lips swell Mycinette [Cetylpyr* Intolerance Sulfa (Sulfonamide * Swelling face Vesicare [Solifenac* Swelling tingle tongue Z-Pack [Azithromyci* Diarrhea, Vomiting REVIEW OF SYSTEMS: PHYSICAL EXAMINATION: VIDEO EXAM: (if completed, performed via video enabled technology) Within the limitations of the video visit, patient is resting comfortably on room air. Non-labored breathing, equal chest rise. No obvious focal deficits but unable to assess her leg today given limitation of the video visit. No obvious rash or scleral icterus. ASSESSMENT: Early disseminated lyme --- Patient with a hx of rash associated with fevers, fatigue, left hip pain, and paraesthesias of the left foot with initial symptoms in Nov 2022 (refer to my note on 03/28/23 for details) --- [place]ed areas [place] her house and hikes there often --- Two pets at home that live outdoors but have noted ticks on her pet previously --- There was no witnessed tick bite but lyme testing at [facility] on 02/27/23 were positive (2 IgM and 5 IgG bands positive) --- She now completed a 30 day course of doxycycline on 03/29/23, fevers, rash, fatigue resolved on doxy --- Based on the positive lyme test, spreading rash, fatigue, and joint symptoms, most consistent with disseminated lyme for which 30 days of doxycycline is appropriate --- There are no symptoms to suggest lyme carditis or meningitis --- She continues to have radicular symptoms of the left leg, neuro planning for an MRI --- She inquired about additional antibiotics but discussed that she may have lingering symptoms and that its unlikely that extending antibiotics would provide additional benefit (discussed with colleagues also) --- Also no symptoms to suggest meningitis or lyme carditis, therefore IV anbx and LP would not be warranted at this time --- I agree with neurology's plan for MRI to rule out any structural cause of her radiculopathy and to assess for inflammation --- I will follow up on the results but recommend to monitor for any new or worsening symptoms off antibiotics at this time and while awaiting the MRI 2. 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 I spent a total of 30 minutes on the date of the service which included preparing to see the patient, [id number] patient care, completing clinical documentation, obtaining and/or reviewing separately obtained history, performing a medically appropriate examination, counseling and educating the patient/family/caregiver, communicating with other HCPs (not separately reported), and independently interpreting results (not separately reported) Radha Fletcher MD, PhD documented in this encounter [facility] 04-27-2023 Note HNO ID: [id number] Author: JEROME ENG MD Service: ? Author Type: Physician Type: Progress Notes Filed: 04/28/2023 12:16 Note Text: 04/21/2023 PROMIS Global Health Physical Health Summary Physical health: Very good Everyday physical activity, ability: Mostly Fatigue: Mild Pain level: 3 General health: Very good Social activities/roles, ability: Excellent Physical Health T-Score (Very Good) Physical Health Percentile PROMIS Global Health Mental Health Summary Quality of life: Very good Mental health (mood,thinking): Excellent Social satisfaction: Excellent Emotional problems (anxious,depressed): Never Mental Health T-Score (Excellent) Mental Health Percentile PROMIS Physical Function T-Score 33(Moderate Dysfunction) PROMIS Physical Function Percentile 4 Percentiles provide an indication of how a patient's score ranks in relation to the [place] general population. > 31st percentile is within normal limits or better *< 31st percentile is at least ? SD worse than population, which may be clinically relevant < 16th percentile is at least 1 SD worse than population and warrants attention 04/21/2023 Sleep Apnea Probability Snores loudly: No Tired, fatigued or sleepy in daytime: No Stops breathing or choking/gasping during sleep: No High blood pressure: No Sleep Apnea Probability Score: 9 (Sleep study not recommended) [facility] 03-28-2023 Note HNO ID: [id number] Author: RADHA FLETCHER MD Service: ? Author Type: Physician Type: Progress Notes Filed: 04/03/2023 09:06 Note Text: .INFECTIOUS DISEASES CONSULT SERVICE DATE: 03/28/2023 Khloe Flores is being seen in consultation at the request of Dr. Jan George for advice and/or opinion regarding the management of lyme disease. Subjective HISTORY HPI: Khloe Flores is a 52 year old female h/o hypothyroidism, RA and sjogren's syndrome (on methotrexate, plaquenil, xeljanz), who presents for lyme disease. Patient notes that her symptoms started on Nov 30 with subjective fevers for the day. On 12/09/22 saw PCP and noted a rash on her hip and abdomen, thought to be a strep infection and was given keflex with prednisone. On 01/06/23 follow up with PCP, rash on left hip, both thighs, abdomen, and left hip pain. Received 7 more days of keflex. PCP follow up on 02/12/23 noted ongoing rash but now spreading to include her right arm and others. States rash started on the left hip initially. Also noted increased fatigue, nausea, increased pain in the hip, tingling/numbness in her toes of the left foot. On 02/27/23 saw ortho spine who thought she had bursitis of her hip. Patient states that she lives on [place] in [facility], and hikes often in the wooded paths with her dog. Never noted a tick bite or visible tick. She has an outdoor dog and cat, states that she has removed ticks from her pets before. States that she keep her pets outdoors. On assessment today she denies any fevers or chills. The rash has resolved. She denies any joint pain, heart palpitations, headaches, or neck stiffness. She continues to have some tingling and numbness in her left foot. She remains on doxycycline, of which she has been prescribed a 30 day course, with one week remaining. REVIEW OF SYSTEMS Otherwise reviewed and negative x 14 except as noted above ALLERGIES Allergen Reactions Erythromycin Vomiting Floxin [Ofloxacin] Intolerance Guaifenesin Swelling lips swell Mycinette [Cetylpyr* Intolerance Sulfa (Sulfonamide * Swelling face Vesicare [Solifenac* Swelling tingle tongue Z-Pack [Azithromyci* Diarrhea, Vomiting PAST MEDICAL HISTORY: PAST MEDICAL HISTORY Diagnosis Date Acute cholecystitis Hypothyroidism Hypothyroidism 03/23/2015 Localization-related (focal) (partial) epilepsy and epileptic syndromes with simple partial seizures, without mention of intractable epilepsy grand mal last one age 7 Microcalcifications of the breast 06/10/2013 Left breast Osteopenia of neck of left femur 2022 Other specified disorder of gallbladder Rheumatoid arthritis(714.0) Sjogren's syndrome (HCC) 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 Sjogrens Syndrome Unspecified hypothyroidism PAST SURGICAL HISTORY: PAST SURGICAL HISTORY Procedure Laterality Date ARTHROSCOPY KNEE DIAGNOSTIC W/WO SYNOVIAL BX SPX Left 86,84 Arthroscopy, knee BIOPSY OF BREAST 2013 microcalcifications COLONOSCOPY EGD LAPS SURG CHOLECYSTECTOMY W/CHOLANGIOGRAPHY 02/27/2005 KAREN 08/01/2015 HYSTEROSCOPY, ABLATION ENDOMETRIAL DASHAASURE PAST SURGICAL HISTORY OF MOLE REMOVAL ON BACK X 2- benign PAST SURGICAL HISTORY OF wisdom teeth FAMILY HISTORY: FAMILY HISTORY Problem Relation Age of Onset Heart Father 54 MA; Cancer Mother blood- multiple mylomia other (multiple myoloma) Mother Hypertension Maternal Grandmother Diabetes Maternal Grandmother Seizures Son Resolved Seizures Daughter Resolved other (Gallbladder Cancer) Maternal Grandfather 70 other (Lung and Brain Cancer) Paternal Grandfather 70 Breast Cancer Other 40 Breast Cancer Other 60 Breast Cancer Other 70 SOCIAL HISTORY: Reviewed, no pertinent social history Social History Tobacco Use Smoking status: Never Smokeless tobacco: Never Vaping Use Vaping Use: Never used Substance Use Topics Alcohol use: No Drug use: No MEDICATIONS: Current Outpatient Medications Medication Sig montelukast (SINGULAIR) 10 mg tablet Take 1 tablet by mouth daily at bedtime. doxycycline (VIBRA-TABS) 100 mg tablet Take 1 tablet by mouth two times a day. ondansetron orally disintegrating (ZOFRAN ODT) 4 mg disintegrating tablet Take 1 tablet by mouth every 8 hours as needed for nausea/vomiting. liothyronine (CYTOMEL) 5 mcg tablet Take 2 tablets by mouth daily in the late afternoon. levothyroxine (LEVOXYL) 100 mcg tablet Take 1 tablet by mouth once daily. Take on empty stomach. For Thyroid. levothyroxine (LEVOXYL) 100 mcg tablet Take 1 tablet by mouth daily before breakfast. Take on empty stomach. For Thyroid. estradiol 10 mcg vaginal suppository maintenance pack (IMVEXXY) Use 1 Suppository vaginally two times a week. cyanocobalamin, vitamin B-12, (VITAMIN B12 ORAL) Take by mouth. tr (more content not included)... [facility] 03-12-2023 Miscellaneous Notes DIPIKA-03/05/23 Labs-02/12/23 NOV-06/09/23 Marine Alonzo LPN documented in this encounter [facility] 03-05-2023 Note HNO ID: [id number] Author: Jan George, DO Service: ? Author Type: Physician Type: Progress Notes Filed: 03/05/2023 10:14 PM Note Text: CC: Khloe Flores is a 52 year old female who presents to the office for follow up HPI: Previously On 11/27 started with a redness/rash on left lower abdominal area and groin, red and warm. Then on 11/30-12/01 developed a fever that lasted about 9 hours associated with chills and sweating. Doesn't now max fever reached. Then felt okay on 12/02 and then rash was slightly painful. Started using her prednisone 10 mg in AM and 5 mg in PM about 2 days ago and feels it is improving. No further fevers and no vesicles. Did have her shingles vaccine prior already Seen in follow up on 01/06 by Sendy Cantrell HYDROGENATION STILL OPERATOR as below Rash is back, similar to before but not as severe. Hoping to get medication before it gets worse. No fever this time. Started again 2 days ago. Difficulty sleeping because of this, but not as severe of pain as prior. Rash exactly the same as prior: redness to L groin and hip area. Warm to touch. No blistering or ulceration. No raised area. Just a diffuse redness spreading down into L thigh. Was given prednisone taper and keflex x 10 days last time. Completely resolved symptoms last time. Hx of RA. at follow up on 02/12/2023 Rash, Now rash on right arm, chest, abdomen, upper thighs- red and warm- no pain on rash areas. Pain severe, worsening, Left buttock, was left groin into lateral left hip as a deep soreness/burning sensation, worse when laying down and sitting or any light or direct tough/ direct compression. Also with jolts that are so severe they are nauseating. Last dose of prednisone 10 mg a day- yesterday. Has been taking Tramadol up to 3 times a day for pain. Taking tylenol arthritis and intermittent ibuprofen which she isn't supposed to be taking chronically and using voltaren 1% cream. Hasn't taken her Xeljanz or her Plaquenil today Has been taking Keflex with temporary benefit / relief. Now for Keflex Dec 09 course for 10 days, last dosing 01/06 for 10 days and 01/16 for 7 days. Each time she is on the antibiotic her symptoms do improve then start to reoccur usually within days of her antibiotic being completed. Very frustrated with the severity of symptoms. Her CRP and WSR were also high with labs in Dec when checked by HYDROGENATION STILL OPERATOR She was given rx for prednisone and keflex and she had CT hip and xrays and labs completed at that time which showed bursitis of greater trochanter and ischial area of her left hip. Currently She was recently seen by her Leather Case Finisher with all these symptoms. She had additional referral given to See Dr. Busby control specialist. Said had greater trochanteric bursitis and ischial spine bursitis. She was then sent to pain mgmt to have bursal injections but specialist didn't seem comfortable giving her these due to redness of her skin Had testing done by Leather Case Finisher, Dr. Wells, for potential lyme disease, Was told by Infectious disease that she has lyme disease with her blood work results POSITIVE for Lyme P93 AB1, P58 AB3, P45 AB4, P41 AB5, P39 AB6 and P18 AB10 and Lyme IgG positive with 5 of the borrelia specific bands positive. She is asking to start treatment and be referred to infectious disease specialist for opinion PAST MEDICAL HISTORY Diagnosis Date Acute cholecystitis Hypothyroidism Hypothyroidism 03/23/2015 Localization-related (focal) (partial) epilepsy and epileptic syndromes with simple partial seizures, without mention of intractable epilepsy grand mal last one age 7 Microcalcifications of the breast 06/10/2013 Left breast Osteopenia of neck of left femur 2022 Other specified disorder of gallbladder Rheumatoid arthritis(714.0) Sjogren's syndrome (HCC) 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 Sjogrens Syndrome Unspecified hypothyroidism PAST SURGICAL HISTORY Procedure Laterality Date ARTHROSCOPY KNEE DIAGNOSTIC W/WO SYNOVIAL BX SPX Left 86,84 Arthroscopy, knee BIOPSY OF BREAST 2014 microcalcifications COLONOSCOPY EGD LAPS SURG CHOLECYSTECTOMY W/CHOLANGIOGRAPHY 02/27/2005 NOVASURE 08/01/2015 HYSTEROSCOPY, ABLATION ENDOMETRIAL NOVASURE PAST SURGICAL HISTORY OF MOLE REMOVAL ON BACK X 2- benign PAST SURGICAL HISTORY OF wisdom teeth Current Outpatient Medications Medication Sig doxycycline (VIBRA-TABS) 100 mg tablet Take 1 tablet by mouth two times a day. ondansetron orally disintegrating (ZOFRAN ODT) 4 mg disintegrating tablet Take 1 tablet by mouth every 8 hours as needed for nausea/vomiting. fluconazole (DIFLUCAN) 150 mg tablet Take 1 tablet by mouth one time only for 1 dose. Repeat in 3 days as needed for yeast infection liothyronine (CYTOMEL) 5 mcg tablet Take 2 tablets by mouth daily in the late afternoon. levothyr (more content not included)... [facility] 03-05-2023 History of Present illness Narrative CC: Khloe Flores is a 52 year old female who presents to the office for follow up HPI: Previously On 11/27 started with a redness/rash on left lower abdominal area and groin, red and warm. Then on 11/30-12/01 developed a fever that lasted about 9 hours associated with chills and sweating. Doesn't now max fever reached. Then felt okay on 12/02 and then rash was slightly painful. Started using her prednisone 10 mg in AM and 5 mg in PM about 2 days ago and feels it is improving. No further fevers and no vesicles. Did have her shingles vaccine prior already Seen in follow up on 01/06 by Sendy Cantrell CNP as below Rash is back, similar to before but not as severe. Hoping to get medication before it gets worse. No fever this time. Started again 2 days ago. Difficulty sleeping because of this, but not as severe of pain as prior. Rash exactly the same as prior: redness to L groin and hip area. Warm to touch. No blistering or ulceration. No raised area. Just a diffuse redness spreading down into L thigh. Was given prednisone taper and keflex x 10 days last time. Completely resolved symptoms last time. Hx of RA. at follow up on 02/12/2023 Rash, Now rash on right arm, chest, abdomen, upper thighs- red and warm- no pain on rash areas. Pain severe, worsening, Left buttock, was left groin into lateral left hip as a deep soreness/burning sensation, worse when laying down and sitting or any light or direct tough/ direct compression. Also with jolts that are so severe they are nauseating. Last dose of prednisone 10 mg a day- yesterday. Has been taking Tramadol up to 3 times a day for pain. Taking tylenol arthritis and intermittent ibuprofen which she isn't supposed to be taking chronically and using voltaren 1% cream. Hasn't taken her Xeljanz or her Plaquenil today Has been taking Keflex with temporary benefit / relief. Now for Keflex Dec 09 course for 10 days, last dosing 01/06 for 10 days and 01/16 for 7 days. Each time she is on the antibiotic her symptoms do improve then start to reoccur usually within days of her antibiotic being completed. Very frustrated with the severity of symptoms. Her CRP and WSR were also high with labs in Dec when checked by HYDROGENATION STILL OPERATOR She was given rx for prednisone and keflex and she had CT hip and xrays and labs completed at that time which showed bursitis of greater trochanter and ischial area of her left hip. Currently She was recently seen by her Leather Case Finisher with all these symptoms. She had additional referral given to See Dr. Busby control specialist. Said had greater trochanteric bursitis and ischial spine bursitis. She was then sent to pain mgmt to have bursal injections but specialist didn't seem comfortable giving her these due to redness of her skin Had testing done by Leather Case Finisher, Dr. Wells, for potential lyme disease, Was told by Infectious disease that she has lyme disease with her blood work results POSITIVE for Lyme P93 AB1, P58 AB3, P45 AB4, P41 AB5, P39 AB6 and P18 AB10 and Lyme IgG positive with 5 of the borrelia specific bands positive. She is asking to start treatment and be referred to infectious disease specialist for opinion PAST MEDICAL HISTORY Diagnosis Date Acute cholecystitis Hypothyroidism Hypothyroidism 03/23/2015 Localization-related (focal) (partial) epilepsy and epileptic syndromes with simple partial seizures, without mention of intractable epilepsy grand mal last one age 7 Microcalcifications of the breast 06/10/2013 Left breast Osteopenia of neck of left femur 2022 Other specified disorder of gallbladder Rheumatoid arthritis(714.0) Sjogren's syndrome (HCC) 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 Sjogrens Syndrome Unspecified hypothyroidism PAST SURGICAL HISTORY Procedure Laterality Date ARTHROSCOPY KNEE DIAGNOSTIC W/WO SYNOVIAL BX SPX Left 86,84 Arthroscopy, knee BIOPSY OF BREAST 2013 microcalcifications COLONOSCOPY EGD LAPS SURG CHOLECYSTECTOMY W/CHOLANGIOGRAPHY 02/27/2005 NOVASURE 08/01/2015 HYSTEROSCOPY, ABLATION ENDOMETRIAL NOVASURE PAST SURGICAL HISTORY OF MOLE REMOVAL ON BACK X 2- benign PAST SURGICAL HISTORY OF wisdom teeth Current Outpatient Medications Medication Sig doxycycline (VIBRA-TABS) 100 mg tablet Take 1 tablet by mouth two times a day. ondansetron orally disintegrating (ZOFRAN ODT) 4 mg disintegrating tablet Take 1 tablet by mouth every 8 hours as needed for nausea/vomiting. fluconazole (DIFLUCAN) 150 mg tablet Take 1 tablet by mouth one time only for 1 dose. Repeat in 3 days as needed for yeast infection liothyronine (CYTOMEL) 5 mcg tablet Take 2 tablets by mouth daily in the late afternoon. levothyroxine (LEVOXYL) 100 mcg tablet Take 1 tablet by mouth once daily. Take on empty stomach. For Thyroid. levothyroxine (LEVOXYL) 100 mcg tablet Take 1 tablet by mouth daily before breakfast. Take on empty stomach. For Thyroid. montelukast (SINGULAIR) 10 mg tablet Take 1 tablet by mouth daily at bedtime. estradiol 10 mcg vaginal suppository maintenance pack (IMVEXXY) Use 1 Suppository vaginally two times a week. cyanocobalamin, vitamin B-12, (VITAMIN B12 ORAL) Take by mouth. traMADOL 50 mg ORAL tablet Take 1 tablet by mouth. @ bedtime methotrexate 2.5 mg ORAL tablet Take by mouth. Take 7 tablets a week calcium carbonate/vitamin d3(CALCIUM 600 + D(3) 600 MG (1,500)-200 UNIT TAB) Take one(1) tablet twice daily. FOLIC ACID 1 MG TAB Take one(1) tablet daily. esomeprazole (NEXIUM) 40 mg ORAL CpDR Take one(1) capsule daily. L-LYSINE 500 MG TAB 2 tabs daily THERAPEUTIC MULTIVITAMIN TAB Take one(1) tablet daily. TYLENOL ARTHRITIS 650 MG TAB two tabs twice daily PLAQUENIL 200 MG TAB Take one tablet daily with breakfast and 1/2 tablet in the evening with dinner No current facility-administered medications for this visit. ALLERGIES Allergen Reactions Erythromycin Vomiting Floxin [Ofloxacin] Intolerance Guaifenesin Swelling lips swell Mycinette [Cetylpyr* Intolerance Sulfa (Sulfonamide * Swelling face Vesicare [Solifenac* Swelling tingle tongue Z-Pack [Azithromyci* Diarrhea, Vomiting Social History Tobacco Use Smoking status: Never Smokeless tobacco: Never Vaping Use Vaping Use: Never used Substance Use Topics Alcohol use: No Drug use: No ROS: See HPI PE: BP 130/80 Pulse 80 Temp (Src) 98.2 (Right Tympanic) Resp 16 Wt 137 lb (62.1kg) LMP 07/05/2015 Gen: A&OX3, NAD, non-toxic appearing HEENT: PERRLA, EOMs intact b/l, nares without drainage, pharynx without erythema, exudate, lesions, or drainage. Uvula midline. Neck: No LAD, no thyromegaly, no meningismus. CV: RRR, no murmur Lungs: CTA b/l, no wheezing Skin: No rashes, lesions, or wounds on exposed skin. Still with painful left hip ROM and antalgic gait No edema Normal pulses ASSESSMENT/PLAN: 1. Lyme disease - ICD9: 088.81, ICD10: A69.20 (primary diagnosis) Start on rx as below, needs follow up SARAH with infectious disease specialist to make sure infection is resolving. She is agreeable - CONSULT TO INFECTIOUS DISEASES - DOXYCYCLINE HYCLATE 100 MG TABLET - ONDANSETRON 4 MG DISINTEGRATING TABLET - FLUCONAZOLE 150 MG TABLET 2. Left hip pain - ICD9: 719.45, ICD10: M25.552 + lyme labs, Start on rx as below, needs follow up SARAH with infectious disease specialist to make sure infection is resolving. She is agreeable - DOXYCYCLINE HYCLATE 100 MG TABLET - DOXYCYCLINE HYCLATE 100 MG TABLET 3. Fever, unspecified fever cause - ICD9: 780.60, ICD10: R50.9 Resolved fever, hx of, recently with + lyme labs, Start on rx as below, needs follow up SARAH with infectious disease specialist to make sure infection is resolving. She is agreeable - DOXYCYCLINE HYCLATE 100 MG TABLET - DOXYCYCLINE HYCLATE 100 MG TABLET 4. Fatigue, unspecified type - ICD9: 780.79, ICD10: R53.83 + lyme labs, Start on rx as below, needs follow up SARAH with infectious disease specialist to make sure infection is resolving. She is agreeable - DOXYCYCLINE HYCLATE 100 MG TABLET - DOXYCYCLINE HYCLATE 100 MG TABLET Jan George DO Return if no improvement. Follow up with Jan George DO. To ER if develops chest pain, shortness of breath. Discussed risks, benefits, alternatives, and potential side effects of medications. Patient/Guardian expressed understanding and agreed with the plan. See patient instructions. Jan George DO [address] [place] [address] documented in this encounter [facility] 02-24-2023 Miscellaneous Notes Spoke with pt gave information provided. Pt voices understanding. Ok to cancel appointment for tomorrow. Please assist in this. Since thryoid labs are stable, OK to wait until physical scheduled in May to recheck. Sooner only if symptoms arise. Thank you, Sendy Cantrell APRN.HYDROGENATION STILL OPERATOR Images from the original note were not included. Khloe Flores [facility] My Chart Rx Pool Dr. George, I saw Dr. Garcia (my warehouse shipping clerk) this morning. She feels this hip pain is a spine issue and has referred me to Dr. Jonathan Busby, a spine orthopedic surgeon, at [facility]. I will see him on 02/27/23 @ 9:30. I don't think I need my appointment tomorrow unless you do. When do I need to schedule to see you for my thyroid again? Please let me know. Thank you, Khloe documented in this encounter [facility] 02-24-2023 Miscellaneous Notes See telephone note documented in this encounter [facility] 02-17-2023 Miscellaneous Notes Pt. informed. Seeing Rheum. next week. Please inform patient that her blood cultures are normal/no growth of bacteria Her CRP and WSR are still slightly high but improved from previous 1 month ago labs. Also her CT of her left hip is normal. No infection signs or concerns. Likely pain is due to inflammation/bursitis How did her appt with Leather Case Finisher go? Jan George DO documented in this encounter [facility] 02-13-2023 Miscellaneous Notes This pt already had this ct completed today. Agree with below. Are we able to call radiology of where she had x-ray done to see if this can be STAT? I cannot change order no that it has been completed. Thank you, Sendy Cantrell APRN.HYDROGENATION STILL OPERATOR Pt seen yesterday by pcp & had a hip xray, results are pending. CT of left hip also ordered & booked for today at 1PM. Pt states she received a call from the rad department telling her they have not gotten approval from her insurance co for the CT scan bc the xray results are not back yet. After consulting with [employer]UM[employer] Cantrell, was advised that she may want to cancel CT until she gets approval from insurance co. Pt states she is already on her way to have CT & she does not want to cancel. I told pt that if insurance denies payment she will be responsible for bill. Pt states understanding & said she is getting it done anyway. Pt asking if office can put a amador on xray reading? Please advise. Debbie Barragan LPN documented in this encounter [facility] 02-12-2023 History of Present illness Narrative Radiology Service Progress Note PATIENT NAME: Khloe Flores DATE OF SERVICE: February 12, 2023 TIME: 11:09 AM PATIENT IDENTITY VERIFICATION COMPLETED USING TWO (2) IDENTIFIERS: Name and Date of confirmed by patient verbally. FALL SCREENING: Has the patient had 2 falls in the last year or 1 fall with injury or currently using an Ambulatory Assistive Device (Walker, Cane, Wheelchair, Crutches, etc.)? No PATIENT GENDER DATA: Female. status: : No status: NO. PATIENT RELEVANT IMPLANT DATA REVIEWED: Not Applicable RADIOLOGY DEPARTMENT: General X-ray: Exam(s) Completed: Pelvis X-Ray: Pelvis with Hip Left PERIPHERAL IV DATA: Not applicable SIGNED BY: RT Amando(Matt) February 12, 2023 11:09 AM documented in this encounter [facility] 02-12-2023 Note HNO ID: [id number] Author: Lana Cerrato RT(Matt) Service: ? Author Type: Technologist Type: Progress Notes Filed: 02/12/2023 11:09 AM Note Text: Radiology Service Progress Note PATIENT NAME: Khloe Flores DATE OF SERVICE: February 12, 2023 TIME: 11:09 AM PATIENT IDENTITY VERIFICATION COMPLETED USING TWO (2) IDENTIFIERS: Name and Date of confirmed by patient verbally. FALL SCREENING: Has the patient had 2 falls in the last year or 1 fall with injury or currently using an Ambulatory Assistive Device (Walker, Cane, Wheelchair, Crutches, etc.)? No PATIENT GENDER DATA: Female. status: : No status: NO. PATIENT RELEVANT IMPLANT DATA REVIEWED: Not Applicable RADIOLOGY DEPARTMENT: General X-ray: Exam(s) Completed: Pelvis X-Ray: Pelvis with Hip Left PERIPHERAL IV DATA: Not applicable SIGNED BY: RT Amando(R) February 12, 2023 11:09 AM [facility] 02-12-2023 Note HNO ID: [id number] Author: Jan George, DO Service: ? Author Type: Physician Type: Progress Notes Filed: 02/12/2023 10:51 AM Note Text: CC: Khloe Flores is a 52 year old female who presents to the office for rash and hip pain HPI: Previously On 11/27 started with a redness/rash on left lower abdominal area and groin, red and warm. Then on 11/30-12/01 developed a fever that lasted about 9 hours associated with chills and sweating. Doesn't now max fever reached. Then felt okay on 12/02 and then rash was slightly painful. Started using her prednisone 10 mg in AM and 5 mg in PM about 2 days ago and feels it is improving. No further fevers and no vesicles. Did have her shingles vaccine prior already Seen in follow up on 01/06 by Sendy Cantrell CNP as below Rash is back, similar to before but not as severe. Hoping to get medication before it gets worse. No fever this time. Started again 2 days ago. Difficulty sleeping because of this, but not as severe of pain as prior. Rash exactly the same as prior: redness to L groin and hip area. Warm to touch. No blistering or ulceration. No raised area. Just a diffuse redness spreading down into L thigh. Was given prednisone taper and keflex x 10 days last time. Completely resolved symptoms last time. Hx of RA. Currently Rash, Now rash on right arm, chest, abdomen, upper thighs- red and warm- no pain on rash areas. Pain severe, worsening, Left buttock, was left groin into lateral left hip as a deep soreness/burning sensation, worse when laying down and sitting or any light or direct tough/ direct compression. Also with jolts that are so severe they are nauseating. Last dose of prednisone 10 mg a day- yesterday. Has been taking Tramadol up to 3 times a day for pain. Taking tylenol arthritis and intermittent ibuprofen which she isn't supposed to be taking chronically and using voltaren 1% cream. Hasn't taken her Xeljanz or her Plaquenil today Has been taking Keflex with temporary benefit / relief. Now for Keflex Dec 09 course for 10 days, last dosing 01/06 for 10 days and 01/16 for 7 days. Each time she is on the antibiotic her symptoms do improve then start to reoccur usually within days of her antibiotic being completed. Very frustrated with the severity of symptoms. Her CRP and WSR were also high with labs in Dec when checked by JORDAN PAST MEDICAL HISTORY Diagnosis Date Acute cholecystitis Hypothyroidism Hypothyroidism 03/23/2015 Localization-related (focal) (partial) epilepsy and epileptic syndromes with simple partial seizures, without mention of intractable epilepsy grand mal last one age 7 Microcalcifications of the breast 06/10/2013 Left breast Osteopenia of neck of left femur 2022 Other specified disorder of gallbladder Rheumatoid arthritis(714.0) Sjogren's syndrome (HCC) 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 Sjogrens Syndrome Unspecified hypothyroidism PAST SURGICAL HISTORY Procedure Laterality Date ARTHROSCOPY KNEE DIAGNOSTIC W/WO SYNOVIAL BX SPX Left 86,84 Arthroscopy, knee BIOPSY OF BREAST 2013 microcalcifications COLONOSCOPY EGD LAPS SURG CHOLECYSTECTOMY W/CHOLANGIOGRAPHY 02/27/2005 NOVASURE 08/01/2015 HYSTEROSCOPY, ABLATION ENDOMETRIAL NOVASURE PAST SURGICAL HISTORY OF MOLE REMOVAL ON BACK X 2- benign PAST SURGICAL HISTORY OF wisdom teeth Current Outpatient Medications Medication Sig liothyronine (CYTOMEL) 5 mcg tablet Take 2 tablets by mouth daily in the late afternoon. levothyroxine (LEVOXYL) 100 mcg tablet Take 1 tablet by mouth once daily. Take on empty stomach. For Thyroid. levothyroxine (LEVOXYL) 100 mcg tablet Take 1 tablet by mouth daily before breakfast. Take on empty stomach. For Thyroid. montelukast (SINGULAIR) 10 mg tablet Take 1 tablet by mouth daily at bedtime. estradiol 10 mcg vaginal suppository maintenance pack (IMVEXXY) Use 1 Suppository vaginally two times a week. cyanocobalamin, vitamin B-12, (VITAMIN B12 ORAL) Take by mouth. traMADOL 50 mg ORAL tablet Take 1 tablet by mouth. @ bedtime methotrexate 2.5 mg ORAL tablet Take by mouth. Take 7 tablets a week calcium carbonate/vitamin d3(CALCIUM 600 + D(3) 600 MG (1,500)-200 UNIT TAB) Take one(1) tablet twice daily. FOLIC ACID 1 MG TAB Take one(1) tablet daily. esomeprazole (NEXIUM) 40 mg ORAL CpDR Take one(1) capsule daily. L-LYSINE 500 MG TAB 2 tabs daily THERAPEUTIC MULTIVITAMIN TAB Take one(1) tablet daily. TYLENOL ARTHRITIS 650 MG TAB two tabs twice daily PLAQUENIL 200 MG TAB Take one tablet daily with breakfast and 1/2 tablet in the evening with dinner cephALEXin (KEFLEX) 500 mg capsule Take 1 capsule by mouth four times daily for 10 days. predniSONE (DELTASONE) 10 mg tablet Take 3 tablets by mouth once daily for 4 days, THEN 2 tablets once daily for 4 days, THEN 1 tablet once daily f (more content not included)... [facility] 02-12-2023 History of Present illness Narrative CC: Khloe Flores is a 52 year old female who presents to the office for rash and hip pain HPI: Previously On 11/27 started with a redness/rash on left lower abdominal area and groin, red and warm. Then on 11/30-12/01 developed a fever that lasted about 9 hours associated with chills and sweating. Doesn't now max fever reached. Then felt okay on 12/02 and then rash was slightly painful. Started using her prednisone 10 mg in AM and 5 mg in PM about 2 days ago and feels it is improving. No further fevers and no vesicles. Did have her shingles vaccine prior already Seen in follow up on 01/06 by Sendy Cantrell HYDROGENATION STILL OPERATOR as below Rash is back, similar to before but not as severe. Hoping to get medication before it gets worse. No fever this time. Started again 2 days ago. Difficulty sleeping because of this, but not as severe of pain as prior. Rash exactly the same as prior: redness to L groin and hip area. Warm to touch. No blistering or ulceration. No raised area. Just a diffuse redness spreading down into L thigh. Was given prednisone taper and keflex x 10 days last time. Completely resolved symptoms last time. Hx of RA. Currently Rash, Now rash on right arm, chest, abdomen, upper thighs- red and warm- no pain on rash areas. Pain severe, worsening, Left buttock, was left groin into lateral left hip as a deep soreness/burning sensation, worse when laying down and sitting or any light or direct tough/ direct compression. Also with jolts that are so severe they are nauseating. Last dose of prednisone 10 mg a day- yesterday. Has been taking Tramadol up to 3 times a day for pain. Taking tylenol arthritis and intermittent ibuprofen which she isn't supposed to be taking chronically and using voltaren 1% cream. Hasn't taken her Xeljanz or her Plaquenil today Has been taking Keflex with temporary benefit / relief. Now for Keflex Dec 09 course for 10 days, last dosing 01/06 for 10 days and 01/16 for 7 days. Each time she is on the antibiotic her symptoms do improve then start to reoccur usually within days of her antibiotic being completed. Very frustrated with the severity of symptoms. Her CRP and WSR were also high with labs in Dec when checked by HYDROGENATION STILL OPERATOR PAST MEDICAL HISTORY Diagnosis Date Acute cholecystitis Hypothyroidism Hypothyroidism 03/23/2015 Localization-related (focal) (partial) epilepsy and epileptic syndromes with simple partial seizures, without mention of intractable epilepsy grand mal last one age 7 Microcalcifications of the breast 06/10/2013 Left breast Osteopenia of neck of left femur 2022 Other specified disorder of gallbladder Rheumatoid arthritis(714.0) Sjogren's syndrome (HCC) 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 Sjogrens Syndrome Unspecified hypothyroidism PAST SURGICAL HISTORY Procedure Laterality Date ARTHROSCOPY KNEE DIAGNOSTIC W/WO SYNOVIAL BX SPX Left 86,84 Arthroscopy, knee BIOPSY OF BREAST 2014 microcalcifications COLONOSCOPY EGD LAPS SURG CHOLECYSTECTOMY W/CHOLANGIOGRAPHY 02/27/2005 NOVASURE 08/01/2015 HYSTEROSCOPY, ABLATION ENDOMETRIAL DASHAASURE PAST SURGICAL HISTORY OF MOLE REMOVAL ON BACK X 2- benign PAST SURGICAL HISTORY OF wisdom teeth Current Outpatient Medications Medication Sig liothyronine (CYTOMEL) 5 mcg tablet Take 2 tablets by mouth daily in the late afternoon. levothyroxine (LEVOXYL) 100 mcg tablet Take 1 tablet by mouth once daily. Take on empty stomach. For Thyroid. levothyroxine (LEVOXYL) 100 mcg tablet Take 1 tablet by mouth daily before breakfast. Take on empty stomach. For Thyroid. montelukast (SINGULAIR) 10 mg tablet Take 1 tablet by mouth daily at bedtime. estradiol 10 mcg vaginal suppository maintenance pack (IMVEXXY) Use 1 Suppository vaginally two times a week. cyanocobalamin, vitamin B-12, (VITAMIN B12 ORAL) Take by mouth. traMADOL 50 mg ORAL tablet Take 1 tablet by mouth. @ bedtime methotrexate 2.5 mg ORAL tablet Take by mouth. Take 7 tablets a week calcium carbonate/vitamin d3(CALCIUM 600 + D(3) 600 MG (1,500)-200 UNIT TAB) Take one(1) tablet twice daily. FOLIC ACID 1 MG TAB Take one(1) tablet daily. esomeprazole (NEXIUM) 40 mg ORAL CpDR Take one(1) capsule daily. L-LYSINE 500 MG TAB 2 tabs daily THERAPEUTIC MULTIVITAMIN TAB Take one(1) tablet daily. TYLENOL ARTHRITIS 650 MG TAB two tabs twice daily PLAQUENIL 200 MG TAB Take one tablet daily with breakfast and 1/2 tablet in the evening with dinner cephALEXin (KEFLEX) 500 mg capsule Take 1 capsule by mouth four times daily for 10 days. predniSONE (DELTASONE) 10 mg tablet Take 3 tablets by mouth once daily for 4 days, THEN 2 tablets once daily for 4 days, THEN 1 tablet once daily for 4 days. No current facility-administered medications for this visit. ALLERGIES Allergen Reactions Erythromycin Vomiting Floxin [Ofloxacin] Intolerance Guaifenesin Swelling lips swell Mycinette [Cetylpyr* Intolerance Sulfa (Sulfonamide * Swelling face Vesicare [Solifenac* Swelling tingle tongue Z-Pack [Azithromyci* Diarrhea, Vomiting Social History Tobacco Use Smoking status: Never Smokeless tobacco: Never Vaping Use Vaping Use: Never used Substance Use Topics Alcohol use: No Drug use: No ROS: See HPI PE: BP 130/80 Pulse 80 Temp (Src) 98.5 (Right Tympanic) Resp 16 Wt 138 lb (62.6kg) LMP 07/05/2015 Gen: A&O, NAD, non-toxic appearing, appears uncomfortable in office, cooperative HEENT: NT/AC, PERRLA, EOMs intact b/l, nares clear and patent b/l, pharynx without erythema, exudate or lesions. Uvula midline. MMM Neck: supple, No cervical LAD, no thyromegaly, no carotid bruits CV: RRR, normal S1 and S2, no murmurs, no gallops, no rubs, Pulses 2+ and symmetric in UE and LE b/l Lungs: normal respiratory effort, CTA b/l, no wheezing or rhonchi or rales Neuro: CN II-XII intact b/l, strength 5/5 b/l UE and LE, DTRs 2/4 UE and LE, sensation intact. Skin: warm, dry, intact, erythematous macules mid and lower left bdominal wall and left groin/lateral hip and right upper arm, left upper arm, and upper thighs bilateral without papules or vesicles with mild warmth present Severe pain in her left hip with movement of joint as well as swelling/redness lateral left hip and left buttock with TTP left ischial tuberosity area No edema, normal pulses ASSESSMENT/PLAN: 1. Left hip pain - ICD9: 719.45, ICD10: M25.552 (primary diagnosis) Concerns for septic/infectious arthritis vs. Inflammatory arthritis/mass or fracture of left hip due to severity of pain and improvement temporarily with antibiotic and then symptoms reoccur. Long standing hx of Rheumatoid arthritis and is immune compromised with medications that she takes - CT HIP WO IVCON LEFT - XR HIP GENERAL 3V PELV/AP/LAT LEFT - SED RATE WESTERGREN - C-REACTIVE PROTEIN (CRP) - CBC + DIFF - LACTIC ACID/LACTATE - BLOOD CULTURE - LD LACTATE DEHYDRO - COMP METABOLIC PANEL - CEPHALEXIN 500 MG CAPSULE - PREDNISONE 10 MG TABLET 2. Fever, unspecified fever cause - ICD9: 780.60, ICD10: R50.9 Concerns for septic/infectious arthritis vs. Inflammatory arthritis/mass or fracture of left hip due to severity of pain and improvement temporarily with antibiotic and then symptoms reoccur. Long standing hx of Rheumatoid arthritis and is immune compromised with medications that she takes - CT HIP WO IVCON LEFT - XR HIP GENERAL 3V PELV/AP/LAT LEFT - SED RATE WESTERGREN - C-REACTIVE PROTEIN (CRP) - CBC + DIFF - LACTIC ACID/LACTATE - BLOOD CULTURE - LD LACTATE DEHYDRO - COMP METABOLIC PANEL - CEPHALEXIN 500 MG CAPSULE - PREDNISONE 10 MG TABLET 3. Fatigue, unspecified type - ICD9: 780.79, ICD10: R53.83 Concerns for septic/infectious arthritis vs. Inflammatory arthritis/mass or fracture of left hip due to severity of pain and improvement temporarily with antibiotic and then symptoms reoccur. Long standing hx of Rheumatoid arthritis and is immune compromised with medications that she takes - SED RATE WESTERGREN - C-REACTIVE PROTEIN (CRP) - CBC + DIFF - LACTIC ACID/LACTATE - BLOOD CULTURE - LD LACTATE DEHYDRO - COMP METABOLIC PANEL - CEPHALEXIN 500 MG CAPSULE - PREDNISONE 10 MG TABLET 4. Hip swelling, left - ICD9: 719.05, ICD10: M25.452 Concerns for septic/infectious arthritis vs. Inflammatory arthritis/mass or fracture of left hip due to severity of pain and improvement temporarily with antibiotic and then symptoms reoccur. Long standing hx of Rheumatoid arthritis and is immune compromised with medications that she takes - CT HIP WO IVCON LEFT - XR HIP GENERAL 3V PELV/AP/LAT LEFT - SED RATE WESTERGREN - C-REACTIVE PROTEIN (CRP) - CBC + DIFF - LACTIC ACID/LACTATE - BLOOD CULTURE - LD LACTATE DEHYDRO - COMP METABOLIC PANEL - CEPHALEXIN 500 MG CAPSULE - PREDNISONE 10 MG TABLET 5. Rash - ICD9: 782.1, ICD10: R21 Concerns for septic/infectious arthritis vs. Inflammatory arthritis/mass or fracture of left hip due to severity of pain and improvement temporarily with antibiotic and then symptoms reoccur. Long standing hx of Rheumatoid arthritis and is immune compromised with medications that she takes - CT HIP WO IVCON LEFT - XR HIP GENERAL 3V PELV/AP/LAT LEFT - SED RATE WESTERGREN - C-REACTIVE PROTEIN (CRP) - CBC + DIFF - LACTIC ACID/LACTATE - BLOOD CULTURE - LD LACTATE DEHYDRO - COMP METABOLIC PANEL - CEPHALEXIN 500 MG CAPSULE - PREDNISONE 10 MG TABLET 6. Macular erythematous rash - ICD9: 782.1, ICD10: L53.8 Concerns for septic/infectious arthritis vs. Inflammatory arthritis/mass or fracture of left hip due to severity of pain and improvement temporarily with antibiotic and then symptoms reoccur. Long standing hx of Rheumatoid arthritis and is immune compromised with medications that she takes Will check labs and testing- if not improved, then she will be back in office for punch biopsy - CT HIP WO IVCON LEFT - XR HIP GENERAL 3V PELV/AP/LAT LEFT - SED RATE WESTERGREN - C-REACTIVE PROTEIN (CRP) - CBC + DIFF - LACTIC ACID/LACTATE - BLOOD CULTURE - LD LACTATE DEHYDRO - COMP METABOLIC PANEL - CEPHALEXIN 500 MG CAPSULE - PREDNISONE 10 MG TABLET 7. Localized swelling, mass, or lump of left lower extremity - ICD9: 782.2, ICD10: R22.42 Concerns for septic/infectious arthritis vs. Inflammatory arthritis/mass or fracture of left hip due to severity of pain and improvement temporarily with antibiotic and then symptoms reoccur. Long standing hx of Rheumatoid arthritis and is immune compromised with medications that she takes - CT HIP WO IVCON LEFT - CEPHALEXIN 500 MG CAPSULE - PREDNISONE 10 MG TABLET Jan George DO Return if no improvement. Follow up with Jan George DO. To ER if develops chest pain, shortness of breath Discussed risks, benefits, alternatives, and potential side effects of medications. Patient/Guardian expressed understanding and agreed with the plan. See patient instructions. Jan George DO [address] [place] [address] documented in this encounter [facility] 01-16-2023 Miscellaneous Notes Pt notified of below. I haven extended antibiotic x 1 week. RX sent to pharmacy. If no resolution -- needs appointment with Dr. George for punch biopsy of skin. Thank you, Sendy Cantrell APRN.HYDROGENATION STILL OPERATOR Sendy, I have one day left of the Cephalexin 500 mg antibiotics left- and I still have a slight rash and hip tenderness. You mentioned for me to message you if it was not completely gone upon completion of this antibiotic. I am also taking Fluconazole for yeast infection now and need to stop my Xeljanz. Do you want to give me more Cephalexin or something else since I'm off Xeljanz? I really want this to be resolved. Please send the medicine to [facility] in [place]. Thank you, Khloe documented in this encounter [facility] 01-15-2023 Miscellaneous Notes Turned this into a telephone note and sent to provider.Sendy is not back until tomorrow. documented in this encounter [facility] 01-08-2023 Miscellaneous Notes Pt informed, verbalized understanding. Tsering Frausto MA Please inform patient that her thyroid, vitamin D and Vitamin B12 labs are stable. No need to repeat these Jan George DO documented in this encounter [facility] 01-06-2023 History of Present illness Narrative Chief Complaint Patient presents with: rash: Rash on left hip returned after antibiotics from Dr. George HPI Khloe Flores is a 52 year old female who presents here today for Above Complaints.. Khloe is an established patient of Dr. Ariel DO and myself. Concerns today... Rash--- Per Mychart: The painful inflammation rash on my left hip has returned. I needed to fill the antibiotic you gave me Cephalexin 500mg on 12/10/22 (because it had gotten worse). Within 24 hours it made it manageable- 72 hours it was almost better. I completed the antibiotic on 12/21/22. I have been off of antibiotics for 13 days and the rash is back. Can I have another round of antibiotics? Or do I need something stronger? It was obviously bacterial since antibiotics helped so well. Today in office... Rash is back, similar to before but not as severe. Hoping to get medication before it gets worse. No fever this time. Started again 2 days ago. Difficulty sleeping because of this, but not as severe of pain as prior. Rash exactly the same as prior: redness to L groin and hip area. Warm to touch. No blistering or ulceration. No raised area. Just a diffuse redness spreading down into L thigh. Was given prednisone taper and keflex x 10 days last time. Completely resolved symptoms last time. Hx of RA. No other concerns or complaints. Past medical history, appointments, medications, allergies reviewed. Previous Medical History PAST MEDICAL HISTORY Diagnosis Date Acute cholecystitis Hypothyroidism Hypothyroidism 03/23/2015 Localization-related (focal) (partial) epilepsy and epileptic syndromes with simple partial seizures, without mention of intractable epilepsy grand mal last one age 7 Microcalcifications of the breast 06/10/2013 Left breast Osteopenia of neck of left femur 2022 Other specified disorder of gallbladder Rheumatoid arthritis(714.0) Sjogren's syndrome (HCC) 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 Sjogrens Syndrome Unspecified hypothyroidism Previous Surgical History PAST SURGICAL HISTORY Procedure Laterality Date ARTHROSCOPY KNEE DIAGNOSTIC W/WO SYNOVIAL BX SPX Left 86,84 Arthroscopy, knee BIOPSY OF BREAST 2013 microcalcifications COLONOSCOPY EGD LAPS SURG CHOLECYSTECTOMY W/CHOLANGIOGRAPHY 02/27/2005 NOVASURE 08/01/2015 HYSTEROSCOPY, ABLATION ENDOMETRIAL NOVASURE PAST SURGICAL HISTORY OF MOLE REMOVAL ON BACK X 2- benign PAST SURGICAL HISTORY OF wisdom teeth Family History FAMILY HISTORY Problem Relation Age of Onset Heart Father 54 MA; Cancer Mother blood- multiple mylomia other (multiple myoloma) Mother Hypertension Maternal Grandmother Diabetes Maternal Grandmother Seizures Son Resolved Seizures Daughter Resolved other (Gallbladder Cancer) Maternal Grandfather 70 other (Lung and Brain Cancer) Paternal Grandfather 70 Breast Cancer Other 40 Breast Cancer Other 60 Breast Cancer Other 70 Patient Allergies ALLERGIES Allergen Reactions Benzol Peroxide [Ot* Rash Emycins [Other] Swelling lips Floxin [Ofloxacin] Guaifenesin Swelling lips swell Mycinette [Cetylpyr* Sulfa (Sulfonamide * Swelling face Vesicare [Solifenac* tingle tongue Z-Pack [Azithromyci* Diarrhea, Vomiting Current Medications Current Outpatient Medications on File Prior to Visit Medication Sig liothyronine (CYTOMEL) 5 mcg tablet Take 2 tablets by mouth daily in the late afternoon. levothyroxine (LEVOXYL) 100 mcg tablet Take 1 tablet by mouth once daily. Take on empty stomach. For Thyroid. levothyroxine (LEVOXYL) 100 mcg tablet Take 1 tablet by mouth daily before breakfast. Take on empty stomach. For Thyroid. montelukast (SINGULAIR) 10 mg tablet Take 1 tablet by mouth daily at bedtime. estradiol 10 mcg vaginal suppository maintenance pack (IMVEXXY) Use 1 Suppository vaginally two times a week. cyanocobalamin, vitamin B-12, (VITAMIN B12 ORAL) Take by mouth. traMADOL 50 mg ORAL tablet Take 1 tablet by mouth. @ bedtime methotrexate 2.5 mg ORAL tablet Take by mouth. Take 7 tablets a week calcium carbonate/vitamin d3(CALCIUM 600 + D(3) 600 MG (1,500)-200 UNIT TAB) Take one(1) tablet twice daily. FOLIC ACID 1 MG TAB Take one(1) tablet daily. esomeprazole (NEXIUM) 40 mg ORAL CpDR Take one(1) capsule daily. L-LYSINE 500 MG TAB 2 tabs daily THERAPEUTIC MULTIVITAMIN TAB Take one(1) tablet daily. TYLENOL ARTHRITIS 650 MG TAB two tabs twice daily PLAQUENIL 200 MG TAB Take one tablet daily with breakfast and 1/2 tablet in the evening with dinner No current facility-administered medications on file prior to visit. Social History Social History Tobacco Use Smoking status: Never Smokeless tobacco: Never Vaping Use Vaping Use: Never used Substance Use Topics Alcohol use: No Drug use: No REVIEW OF SYSTEMS: as above Reviewed relevant PMHx, PSHx, Social Hx, current medications and allergies. Review of Symptoms REVIEW OF SYSTEMS See HPI. \ EXAM: BP 112/64 (BP Site: Left Arm, BP Position: Sitting, BP Cuff Size: Regular Adult) Pulse 64 Resp 14 Wt 62.2 kg (137 lb 3.2 oz) LMP 07/05/2015 (Exact Date) BMI 24.30 kg/m General Appearance: Well appearing, alert, in no acute distress, well-hydrated, well nourished.. Skin: Skin color, texture, turgor normal, no suspicious rashes or lesions, Positives: Rash: erythema to left groin extending down L thigh without papules or vesicles. Warmth to touch. No streaking. Head: Normocephalic, no masses, lesions, tenderness or abnormalities. Health Maintenance List Pneumococcal Vaccine(1 - PCV) Never done Hepatitis C Screening Never done HIV Screening Never done Colorectal Cancer Screening Never done Covid-19 Vaccine(4 - Moderna risk series) due on 04/13/2021 Influenza Vaccine(1) due on 11/29/2022 Mammogram Screening due on 05/16/2023 Annual PCP Team Chronic Disease Visit due on 12/10/2023 Pap Testing due on 02/09/2025 HPV Testing due on 02/09/2025 Diabetes Screening due on 06/06/2025 Lipid Screening due on 07/10/2027 DTaP,Tdap,Td Vaccine(3 - Td or Tdap) due on 06/10/2032 Depression Assessment Completed Shingrix Vaccine Completed ASSESSMENT/PLAN: 1. Rash - ICD9: 782.1, ICD10: R21 Unknown etiology. Complete resolution with prednisone taper and keflex antibiotic prior. Repeat regimen. Lab work as below to further investigate. Will discuss with Dr. George further diagnostic regimen. - PREDNISONE 10 MG TABLET - C-REACTIVE PROTEIN (CRP) - SED RATE WESTERGREN - CBC + DIFF - COMP METABOLIC PANEL RTO as needed. Prescription instructions reviewed with patient as applicable. Potential red flag symptoms discussed with the patient. Reviewed appropriate action plan to take if red flag symptoms occur. Patient agreeable to treatment plan. Sendy Crowell APRN.HYDROGENATION STILL OPERATOR [address] [place] [address] documented in this encounter [facility] 01-06-2023 Miscellaneous Notes Pt scheduled same day appt with AD for evaluation. Ketty Leon Ma Yes, needs appointment to assess. Thank you, Sendy Cantrell APRN.JORDAN Please see pt message. Advised to schedule appt. Tsering Frausto documented in this encounter [facility] 12-09-2022 Miscellaneous Notes See telephone note documented in this encounter [facility] 12-09-2022 History of Present illness Narrative CC: Khloe Flores is a 52 year old female who presents to the office for follow up HPI: On 11/27 started with a redness/rash on left lower abdominal area and groin, red and warm. Then on 11/30-12/01 developed a fever that lasted about 9 hours associated with chills and sweating. Doesn't now max fever reached. Then felt okay on 12/02 and then rash was slightly painful. Started using her prednisone 10 mg in AM and 5 mg in PM about 2 days ago and feels it is improving. No further fevers and no vesicles. Did have her shingles vaccine prior already Hypothyroidism, taking levothyroxine 88 mcg a day and Cytomel 5 mcg a day, still having some fatigue and weight gain recently TSH Date Value Ref Range Status 12/03/2022 3.180 0.270 - 4.200 mIU/L Final Free T4 Date Value Ref Range Status 12/03/2022 1.1 0.9 - 1.7 ng/dL Final T3 89 12/03/2022 PAST MEDICAL HISTORY Diagnosis Date Acute cholecystitis Hypothyroidism Hypothyroidism 03/23/2015 Localization-related (focal) (partial) epilepsy and epileptic syndromes with simple partial seizures, without mention of intractable epilepsy grand mal last one age 7 Microcalcifications of the breast 06/10/2013 Left breast Other specified disorder of gallbladder Rheumatoid arthritis(714.0) Sjogren's syndrome (HCC) 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 Sjogrens Syndrome Unspecified hypothyroidism PAST SURGICAL HISTORY Procedure Laterality Date ARTHROSCOPY KNEE DIAGNOSTIC W/WO SYNOVIAL BX SPX Left 86,84 Arthroscopy, knee BIOPSY OF BREAST 2014 microcalcifications COLONOSCOPY EGD LAPS SURG CHOLECYSTECTOMY W/CHOLANGIOGRAPHY 02/27/2005 NOVASURE 08/01/2015 HYSTEROSCOPY, ABLATION ENDOMETRIAL NOVASURE PAST SURGICAL HISTORY OF MOLE REMOVAL ON BACK X 2- benign PAST SURGICAL HISTORY OF wisdom teeth Social History: Social History Tobacco Use Smoking status: Never Smokeless tobacco: Never Vaping Use Vaping Use: Never used Substance Use Topics Alcohol use: No Drug use: No FAMILY HISTORY Problem Relation Age of Onset Heart Father 54 MA; Cancer Mother blood- multiple mylomia other (multiple myoloma) Mother Hypertension Maternal Grandmother Diabetes Maternal Grandmother Seizures Son Resolved Seizures Daughter Resolved other (Gallbladder Cancer) Maternal Grandfather 70 other (Lung and Brain Cancer) Paternal Grandfather 70 Breast Cancer Other 40 Breast Cancer Other 60 Breast Cancer Other 70 Current Outpatient prescriptions: levothyroxine (SYNTHROID) 88 mcg tablet Take 1 tablet by mouth once daily. Take on empty stomach. montelukast (SINGULAIR) 10 mg tablet Take 1 tablet by mouth daily at bedtime. liothyronine (CYTOMEL) 5 mcg tablet Take 1 tablet by mouth daily in the late afternoon. estradiol 10 mcg vaginal suppository maintenance pack (IMVEXXY) Use 1 Suppository vaginally two times a week. cyanocobalamin, vitamin B-12, (VITAMIN B12 ORAL) Take by mouth. traMADOL 50 mg ORAL tablet Take 1 tablet by mouth. @ bedtime methotrexate 2.5 mg ORAL tablet Take by mouth. Take 7 tablets a week calcium carbonate/vitamin d3(CALCIUM 600 + D(3) 600 MG (1,500)-200 UNIT TAB) Take one(1) tablet twice daily. FOLIC ACID 1 MG TAB Take one(1) tablet daily. esomeprazole (NEXIUM) 40 mg ORAL CpDR Take one(1) capsule daily. L-LYSINE 500 MG TAB 2 tabs daily THERAPEUTIC MULTIVITAMIN TAB Take one(1) tablet daily. TYLENOL ARTHRITIS 650 MG TAB two tabs twice daily PLAQUENIL 200 MG TAB Take one tablet daily with breakfast and 1/2 tablet in the evening with dinner Allergies: ALLERGIES Allergen Reactions Benzol Peroxide [Ot* Rash Emycins [Other] Swelling lips Floxin [Ofloxacin] Guaifenesin Swelling lips swell Mycinette [Cetylpyr* Sulfa (Sulfonamide * Swelling face Vesicare [Solifenac* tingle tongue Z-Pack [Azithromyci* Diarrhea, Vomiting ROS: See HPI PE: 12/09/22 0817 BP: 136/80 Pulse: 80 Resp: 12 Temp: 37.2 C (99 F) TempSrc: Left Tympanic Weight: 62.1 kg (137 lb) Gen: A&O, NAD, non-toxic appearing, Pleasant, cooperative HEENT: NT/AC, PERRLA, EOMs intact b/l, nares clear and patent b/l, pharynx without erythema, exudate or lesions. Uvula midline. MMM Neck: supple, No cervical LAD, no thyromegaly, no carotid bruits CV: RRR, normal S1 and S2, no murmurs, no gallops, no rubs, Pulses 2+ and symmetric in UE and LE b/l Lungs: normal respiratory effort, CTA b/l, no wheezing or rhonchi or rales MS: FROM all 4 extremities Neuro: CN II-XII intact b/l, strength 5/5 b/l UE and LE, DTRs 2/4 UE and LE, sensation intact. Skin: warm, dry, intact, erythema left lower abdominal wall and upper thigh without papules or vesicles with mild warmth present Able to move her left hip and low back without obvious issue No edema, normal pulses ASSESSMENT/PLAN: 1. Vitamin D deficiency - ICD9: 268.9, ICD10: E55.9 (primary diagnosis) Continue supplement, she is skipping Sat and Sun since last levels were high normal. Continue weight bearing exercise as well - VITAMIN D 25 HYDROXY 2. Hypothyroidism due to acquired atrophy of thyroid - ICD9: 244.8, 246.8, ICD10: E03.4 - Instructed patient on importance of taking on an empty stomach either first thing in the morning or at bedtime. - Increase Synthroid dose to 0.100 mg And increase Cytomel to 10 mcg a day, recheck labs in 6 weeks as ordered. - LIOTHYRONINE 5 MCG TABLET - LEVOTHYROXINE 100 MCG TABLET - TSH BLD - T4 FREE/FREE THYROX - T3 FREE BLD - THYROGLOBULIN AB 3. Rash - ICD9: 782.1, ICD10: R21 rx as below. Suspect viral exanthem vs. Other viral syndrome vs. Atypical shingles. rx for antibiotic to start if symptoms worsen. Supportive care - PREDNISONE 10 MG TABLET 4. Elevated MCV - ICD9: 790.09, ICD10: R71.8 Recheck labs. - VITAMIN B12 BLOOD Jan George DO To ER if develops chest pain, shortness of breath, or severe worsening of symptoms. Discussed risks, benefits, alternatives, and potential side effects of medications. Patient expressed understanding and agreed with the plan. Jan George DO [address] [place] [address] documented in this encounter [facility] 07-03-2022 Miscellaneous Notes Yes, this is fine. Shashi Rios APRN.CNP Pt informed, verbalized understanding. Pt reports she was told by JG to take 5 days a week instead of a full 7 days since her last vit D level was borderline high. Pt reports she will continue unless told otherwise. Tsering Frausto Please let patient know that bone scan results show osteopenia. They need to be taking a daily calcium and Vitamin D3 supplement. *1200 mg - 1500 mg calcium per day *800 - 1000 International Units of vitamin D3 per day Shashi Rios APRN.CNP documented in this encounter [facility] 07-03-2022 History of Present illness Narrative Radiology Service Progress Note PATIENT NAME: Khloe Flores DATE OF SERVICE: July 03, 2022 TIME: 9:55 AM PATIENT IDENTITY VERIFICATION COMPLETED USING TWO (2) IDENTIFIERS: Name and Date of confirmed by patient verbally. FALL SCREENING: Has the patient had 2 falls in the last year or 1 fall with injury or currently using an Ambulatory Assistive Device (Walker, Cane, Wheelchair, Crutches, etc.)? No PATIENT GENDER DATA: Female. status: : No status: NO. PATIENT RELEVANT IMPLANT DATA REVIEWED: Not Applicable RADIOLOGY DEPARTMENT: Bone Density PERIPHERAL IV DATA: Not applicable SIGNED BY: RT Frank(R) July 03, 2022 9:55 AM documented in this encounter [facility] 06-10-2022 Miscellaneous Notes Immunization record updated Tsering Frausto Call [facility] for 1st Shingles vaccine and [facility] for 2nd Shingles vaccine. Jan George DO documented in this encounter [facility] 06-10-2022 History of Present illness Narrative CC: Khloe Flores is a 51 year old female who presents to the office for 6 months follow up. HPI: Hypothyroidism, taking synthroid 88 mcg daily in the AM, still some fatigue symptoms, especially in the afternoon Hemoglobin (g/dL) Date Value 06/06/2022 15.4 06/09/2015 13.7 Hematocrit (%) Date Value 06/06/2022 43.7 06/09/2015 40.8 HCT (%) Date Value 01/04/2020 46.4 WBC Date Value 06/06/2022 4.40 k/uL 01/04/2020 3.7 K/uL 06/09/2015 5.99 k/uL Glucose Date Value 06/06/2022 67 mg/dL 12/07/2019 73 MG/DL 08/19/2019 55 mg/dL Potassium (mmol/L) Date Value 06/06/2022 3.8 08/19/2019 3.9 K (mmol/L) Date Value 12/07/2019 3.5 Sodium (mmol/L) Date Value 06/06/2022 138 08/19/2019 141 NA (mmol/L) Date Value 12/07/2019 141 Chloride Date Value 06/06/2022 101 mmol/L 12/07/2019 106 MEQ/L 08/19/2019 103 mmol/L CO2 Date Value 06/06/2022 28 mmol/L 12/07/2019 31.0 MEQ/L 08/19/2019 27 mmol/L Creatinine Date Value 06/06/2022 0.63 mg/dL 12/07/2019 0.73 MG/DL 08/19/2019 0.72 mg/dL BUN Date Value 06/06/2022 9 mg/dL 12/07/2019 9 MG/DL 08/19/2019 7 mg/dL Anion Gap (mmol/L) Date Value 06/06/2022 9 08/19/2019 11 Calcium (mg/dL) Date Value 12/07/2019 9.5 08/19/2019 9.4 Calcium, Total (mg/dL) Date Value 06/06/2022 9.6 Protein, Total (g/dL) Date Value 06/06/2022 7.0 09/04/2005 8.1 Albumin Date Value 06/06/2022 4.6 g/dL 12/07/2019 4.3 gm/dL 09/04/2005 4.8 g/dL Bilirubin, Total (mg/dL) Date Value 06/06/2022 0.3 09/04/2005 0.6 Alkaline Phosphatase (U/L) Date Value 06/06/2022 83 09/04/2005 58 Alk Phos Total (U/L) Date Value 12/07/2019 65 AST (U/L) Date Value 06/06/2022 23 09/04/2005 31 AST (SGOT) (U/L) Date Value 12/07/2019 32 ALT (U/L) Date Value 06/06/2022 19 09/04/2005 38 ALT (SGPT) (U/L) Date Value 12/07/2019 36 TSH Date Value Ref Range Status 06/06/2022 1.950 0.270 - 4.200 mIU/L Final Comment: If the patient is , TSH reference range varies by gestational period: First Trimester (weeks 9-12): 0.180-2.990 mIU/L Second Trimester: 0.110-3.980 mIU/L Third Trimester: 0.480-4.710 mIU/L Stan Amador, et al. A Practical Approach for the Verifications and Determination of Site- and Trimester-Specific Reference Intervals for Thyroid Function tests in . Thyroid, 2019:29:3:412-420. Oneil Martin, et al. 2017 Guidelines of the [place] [employer] for the Diagnosis and Management of Thyroid Disease during and the . Thyroid, 2017:27:3:315-389. Free T4 Date Value Ref Range Status 06/06/2022 1.6 0.9 - 1.7 ng/dL Final T3 87 06/06/2022 Rheumatoid arthritis, taking Xeljanz now per Dr. Wells. Also taking methotrexate and plaquenil medication. PAST MEDICAL HISTORY Diagnosis Date Acute cholecystitis Hypothyroidism Hypothyroidism 03/23/2015 Localization-related (focal) (partial) epilepsy and epileptic syndromes with simple partial seizures, without mention of intractable epilepsy grand mal last one age 7 Microcalcifications of the breast 06/10/2013 Left breast Other specified disorder of gallbladder Rheumatoid arthritis(714.0) Sjogren's syndrome (HCC) 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 Sjogrens Syndrome Unspecified hypothyroidism PAST SURGICAL HISTORY Procedure Laterality Date ARTHROSCOPY KNEE DIAGNOSTIC W/WO SYNOVIAL BX SPX Left 86,84 Arthroscopy, knee BIOPSY OF BREAST 2014 microcalcifications COLONOSCOPY EGD LAPS SURG CHOLECYSTECTOMY W/CHOLANGIOGRAPHY 02/27/2005 NOVASURE 08/01/2015 HYSTEROSCOPY, ABLATION ENDOMETRIAL NOVASURE PAST SURGICAL HISTORY OF MOLE REMOVAL ON BACK X 2- benign PAST SURGICAL HISTORY OF wisdom teeth Social History: Social History Tobacco Use Smoking status: Never Smokeless tobacco: Never Vaping Use Vaping Use: Never used Substance Use Topics Alcohol use: No Drug use: No FAMILY HISTORY Problem Relation Age of Onset Heart Father 54 MA; Cancer Mother blood- multiple mylomia other (multiple myoloma) Mother Hypertension Maternal Grandmother Diabetes Maternal Grandmother Seizures Son Resolved Seizures Daughter Resolved other (Gallbladder Cancer) Maternal Grandfather 70 other (Lung and Brain Cancer) Paternal Grandfather 70 Breast Cancer Other 40 Breast Cancer Other 60 Breast Cancer Other 70 Current Outpatient prescriptions: estradiol 10 mcg vaginal suppository maintenance pack (IMVEXXY) Use 1 Suppository vaginally two times a week. cyanocobalamin, vitamin B-12, (VITAMIN B12 ORAL) Take by mouth. traMADOL 50 mg ORAL tablet Take 1 tablet by mouth. @ bedtime methotrexate 2.5 mg ORAL tablet Take by mouth. Take 7 tablets a week calcium carbonate/vitamin d3(CALCIUM 600 + D(3) 600 MG (1,500)-200 UNIT TAB) Take one(1) tablet twice daily. FOLIC ACID 1 MG TAB Take one(1) tablet daily. PREDNISONE 10 MG TAB as needed esomeprazole (NEXIUM) 40 mg ORAL CpDR Take one(1) capsule daily. L-LYSINE 500 MG TAB 2 tabs daily THERAPEUTIC MULTIVITAMIN TAB Take one(1) tablet daily. TYLENOL ARTHRITIS 650 MG TAB two tabs twice daily PLAQUENIL 200 MG TAB Take one tablet daily with breakfast and 1/2 tablet in the evening with dinner levothyroxine (SYNTHROID) 88 mcg tablet Take 1 tablet by mouth once daily. Take on empty stomach. montelukast (SINGULAIR) 10 mg tablet Take 1 tablet by mouth daily at bedtime. liothyronine (CYTOMEL) 5 mcg tablet Take 1 tablet by mouth daily in the late afternoon. abatacept (ORENCIA CLICKJECT SUBCUTANEOUS) Inject 1 mL subcutaneously one time a week. 125mg/ml once weekly Allergies: ALLERGIES Allergen Reactions Benzol Peroxide [Ot* Rash Emycins [Other] Swelling lips Floxin [Ofloxacin] Guaifenesin Swelling lips swell Mycinette [Cetylpyr* Sulfa (Sulfonamide * Swelling face Vesicare [Solifenac* tingle tongue Z-Pack [Azithromyci* Diarrhea, Vomiting ROS: See HPI PE: 06/10/22 0749 BP: 122/80 BP Site: Left Arm BP Position: Sitting BP Cuff Size: Regular Adult Pulse: 80 SpO2: 100% Weight: 60.1 kg (132 lb 6.4 oz) Gen: A&O, NAD, non-toxic appearing, Pleasant, cooperative HEENT: NT/AC, PERRLA, EOMs intact b/l, nares clear and patent b/l, pharynx without erythema, exudate or lesions. Uvula midline. MMM Neck: supple, No cervical LAD, no thyromegaly, no carotid bruits CV: RRR, normal S1 and S2, no murmurs, no gallops, no rubs, Pulses 2+ and symmetric in UE and LE b/l Lungs: normal respiratory effort, CTA b/l, no wheezing or rhonchi or rales MS: arthritis changes Neuro: CN II-XII intact b/l Skin: warm, dry, intact, No rashes or lesions on exposed skin. No edema ASSESSMENT/PLAN: 1. Hypothyroidism due to acquired atrophy of thyroid - ICD9: 244.8, 246.8, ICD10: E03.4 (primary diagnosis) - Instructed patient on importance of taking on an empty stomach either first thing in the morning or at bedtime. - continue current dose of Synthroid 0.088 mg Add on Cytomel in the afternoon Recheck labs in 4-6 weeks. - LEVOTHYROXINE 88 MCG TABLET - LIOTHYRONINE 5 MCG TABLET - T4 FREE/FREE THYROX - T3 FREE BLD - TSH BLD 2. Sjogrens Syndrome - ICD9: 710.2, ICD10: M35.00 rx refilled. - MONTELUKAST 10 MG TABLET 3. Need for Tdap vaccination - ICD9: V06.1, ICD10: Z23 - TDAP VACCINE, AGE 7+ YR (ADACEL, BOOSTRIX) 4. Screening for lipid disorders - ICD9: V77.91, ICD10: Z13.22 - LIPID PANEL BASIC 5. History of hepatitis B vaccination - ICD9: V49.89, ICD10: Z92.29 - HEP B SURF AB 6. Screening for osteoporosis - ICD9: V82.81, ICD10: Z13.820 - DXA-AXIAL SKELETON 7. Rheumatoid arthritis of multiple sites with negative rheumatoid factor (HCC) - ICD9: 714.0, ICD10: M06.09 - f/u with Leather Case Finisher Jan George DO To ER if develops chest pain, shortness of breath, or severe worsening of symptoms. Discussed risks, benefits, alternatives, and potential side effects of medications. Patient expressed understanding and agreed with the plan. Jan George DO [address] [place] [address] documented in this encounter [facility] 05-17-2022 Miscellaneous Notes May 20, 2022 PID: [id number] Khloe Flores [address] [place] [address] Dear Ms. Flores, We are pleased to inform you that the results of your recent breast imaging exam on 05/16/2022 are normal. Your mammogram demonstrates that you have dense breast tissue, which could hide abnormalities. Dense breast tissue, in and of itself, is a relatively common condition. Therefore, this information is not provided to cause undue concern; rather, it is to raise your awareness and promote discussion with your health care provider regarding the presence of dense breast tissue in addition to other risk factors. Early detection of cancer is very important. We also understand recommendations regarding breast cancer screening are controversial. Please discuss with your primary care provider which strategy is best for you and whether a mammogram is right for you. Your imaging studies and report will be kept on file at [facility] as part of your permanent medical record and are available for your continuing care. Thank you for allowing us to help in meeting your health care needs. Sincerely, Dr. Echevarria Interpreting Radiologist [facility] (Normal over 40) documented in this encounter [facility] 05-16-2022 History of Present illness Narrative Radiology Service Progress Note PATIENT NAME: Khloe Flores DATE OF SERVICE: May 16, 2022 TIME: 7:37 AM PATIENT IDENTITY VERIFICATION COMPLETED USING TWO (2) IDENTIFIERS: Name and Date of confirmed by patient verbally. FALL SCREENING: Has the patient had 2 falls in the last year or 1 fall with injury or currently using an Ambulatory Assistive Device (Walker, Cane, Wheelchair, Crutches, etc.)? No PATIENT GENDER DATA: Female. status: : No status: NO. PATIENT RELEVANT IMPLANT DATA REVIEWED: Not Applicable RADIOLOGY DEPARTMENT: Mammography PERIPHERAL IV DATA: Not applicable SIGNED BY: RT Roque(R) May 16, 2022 7:37 AM documented in this encounter [facility] 03-29-2022 History of Present illness Narrative Web Producer offered: Patient declines. Khloe is a 51 year old who presents for an annual gynecologic exam without complaints. Menses: No bleeding. Ablation 2016 Contraception: vasectomy HPV vaccine: No Last Pap: 02/11/20 normal HPV: 02/11/20 negative History of abnormal pap: Yes Last mammogram: 2021 diagnositc right return to annual mammogram. 2020 abnormal. Sexually active: Yes Time with current partner: , 1990 Pain with intercourse: No Postcoital bleeding: No Hot flashes: a few times during the day but coping. Increased soy in diet Night sweats: 2-3 times a night Vaginal dryness: yes, imvexxy, working well Mood swings: No Insomnia: No Exercise: 5 times a week for 30 minutes. Type: walking Diet: Regular Seatbelt use: Yes OB History T2 L2 SAB0 IAB0 Ectopic0 Multiple0 Live Births0 Comment: Menarche age 13 [employer] 28 Shift M[employer] History LMP: 07/05/2015 (Exact Date), Ablation Age at Menarche: Age at First : Age at Menopause: Shift Mgr History Comments: Sexual Activity: Yes; Male; HUSBANDS VASECTOMY Contraception: Vasectomy PAST MEDICAL HISTORY Diagnosis Date Acute cholecystitis Hypothyroidism Hypothyroidism 03/23/2015 Localization-related (focal) (partial) epilepsy and epileptic syndromes with simple partial seizures, without mention of intractable epilepsy grand mal last one age 7 Microcalcifications of the breast 06/10/2013 Left breast Other specified disorder of gallbladder Rheumatoid arthritis(714.0) Sjogren's syndrome (HCC) 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 Sjogrens Syndrome Unspecified hypothyroidism PAST SURGICAL HISTORY Procedure Laterality Date ARTHROSCOPY KNEE DIAGNOSTIC W/WO SYNOVIAL BX SPX Left 86,84 Arthroscopy, knee BIOPSY OF BREAST 2014 microcalcifications COLONOSCOPY EGD LAPS SURG CHOLECYSTECTOMY W/CHOLANGIOGRAPHY 02/27/2005 NOVASURE 08/01/2015 HYSTEROSCOPY, ABLATION ENDOMETRIAL NOVASURE PAST SURGICAL HISTORY OF MOLE REMOVAL ON BACK X 2- benign PAST SURGICAL HISTORY OF wisdom teeth FAMILY HISTORY Problem Relation Age of Onset Heart Father 54 MA; Cancer Mother blood- multiple mylomia other (multiple myoloma) Mother Hypertension Maternal Grandmother Diabetes Maternal Grandmother Seizures Son Resolved Seizures Daughter Resolved other (Gallbladder Cancer) Maternal Grandfather 70 other (Lung and Brain Cancer) Paternal Grandfather 70 Breast Cancer Other 40 Breast Cancer Other 60 Breast Cancer Other 70 SOCIAL HISTORY Social History Tobacco Use Smoking status: Never Smokeless tobacco: Never Vaping Use Vaping Use: Never used Substance Use Topics Alcohol use: No Drug use: No REVIEW OF SYSTEMS Abdomen: No abdominal pain, nausea, vomiting, diarrhea, or constipation. No bloating, early satiety, indigestion, or increased flatulence. Bladder: No dysuria, gross hematuria, urinary frequency, urinary urgency, or incontinence. Breast: No breast lumps, nipple d/c, overlying skin changes, redness or skin retraction. Allergies and current medication updated:Yes EXAM: BP 118/74 Ht 5' 3 (1.60m) Wt 133 lb (60.3kg) LMP 07/05/2015 BMI 23.57 kg/(m^2). GENERAL: pleasant, female in no apparent distress HEENT: Normocephalic, atraumatic, mucus membranes moist, and no lesions NECK: Supple, full range of motion, no adenopathy, and thyroid normal DERMATOLOGY: Normal, without lesions, non-icteric, and non-hirsute BREAST: soft, non-tender, symmetric, no dominant mass, normal nipple-areolar complex, no lymphadenopathy, and no nipple discharge CHEST: Normal inspiratory effort ABDOMEN: soft, non-tender, and no masses PELVIC: external genitalia normal, normal Bartholin's glands, urethra, Metaline's glands, no vulvar lesions, no cervical lesions, good vaginal support, physiologic discharge present, normal appearing perineal body and perianal region BIMANUAL: uterus normal size, shape and consistency, no adnexal masses, and non-tender RECTOVAGINAL: deferred. NEURO: alert and oriented x3,exam grossly non-focal EXTREMITIES: normal ASSESSMENT/PLAN: 1. Encounter for gynecological examination with abnormal finding - ICD9: V72.31, ICD10: Z01.411 (primary diagnosis) - Completed pelvic and breast exam - Encouraged monthly BSE - Follow up for annual exam in one year. 2. Encounter for screening mammogram for breast cancer - ICD9: V76.12, ICD10: Z12.31 - Completed pelvic and breast exam - Encouraged monthly BSE - Follow up for annual exam in one year. 3. Breast density - ICD9: 611.79, ICD10: R92.2 - KEILY SCREENING W DOROTEO -Diagnostic mammogram normal of right breast and ok to return to annual screening. 4. Vaginal atrophy - ICD9: 627.3, ICD10: N95.2 -Imvexxy for vaginal atorphy 1) Health maintenance: Pap/HPV up to date. Mammogram ordered. Nutrition, exercise and routine health maintenance exams reviewed. Calcium/Vitamin D supplementation information provided. Lipids/glucose: followed by PCP Vitamin D: followed by PCP 2) Contraception: vasectomy. Contraceptive options reviewed and information provided. 3) STD screening: Declined STD check. 4) Follow up one year or sooner as needed Kendra Millan, MERCHANDISE CLERK.CNM documented in this encounter [facility] 01-24-2022 Miscellaneous Notes The following approved medication requests have been transmitted electronically. Requested Prescriptions Signed Prescriptions Disp Refills levothyroxine (SYNTHROID) 88 mcg tablet 90 tablet 1 Sig: Take 1 tablet by mouth once daily. Take on empty stomach. Authorizing Provider: SENDY CROWELL Ordering User: SHASHI RIOS APRN.CNP Patient phones requesting refills as follows: Pt. requested a 90 day supply Requested Prescriptions Pending Prescriptions Disp Refills levothyroxine (SYNTHROID) 88 mcg tablet 30 tablet 1 Sig: Take 1 tablet by mouth once daily. Take on empty stomach. DIPIKA-12/10/21 Labs-01/22/22 NOV-06/10/22 med filled 12/10/21 Please review and advise. Marine Alonzo LPN documented in this encounter [facility] 12-10-2021 Miscellaneous Notes New RX sent. Arlen Cedillo APRN.CNM see note from pharmacy for clarification on start pack or maintenance pack , please documented in this encounter [facility] 12-10-2021 Miscellaneous Notes Last seen in office 03/26/2021. Last refilled 09/26/2021-54 suppositories 0 refills. Please review in Kendra's absence. Another [employer] message dated 11/19 documented in this encounter [facility] 12-10-2021 History of Present illness Narrative Chief Complaint Patient presents with: Follow Up HPI Khloe Flores is a 51 year old female who presents here today for Above Complaints. Khloe is an established patient of Mariola Rios CNP. Khloe is a new patient to me today. Concerns today.. Hypothyroidism -- Has been on 75 mcg daily of synthroid for years. Symptoms -- intermittent deep voice, dry skin, mild weight gain (also had kenalog shot recently d/t autoimmune RA flare which could be contributing), mild cold intolerance, and intermittent brain fog. Recent blood work as below. Feels the best and normal with TSH below 2.5 per pt. Pt asking to increase dosage of synthroid. Component Latest Ref Rng & Units 12/04/2021 TSH 0.270 - 4.200 mIU/L 3.370 T3 79 - 165 ng/dL 106 Free T4 0.9 - 1.7 ng/dL 1.5 Menopause -- Has increase flax seed and soy which has helped a ton with hot flashes and yolie-menopausal symptoms. Stable. Well managed. Mammograms -- Hx of breast cancer in family so very cautious. Had calcifications on prior mammogram so investigated further with MRI. Last mammogram -- 12/04/21 normal, recommended 1 year follow-up. Follows with Dr. Garcia routinely for her autoimmune disorders of RA and sjogrens syndrome. Stable. On plaquenil and methotrexate. Plant based diet since 2018. Helps with autoimmune disroders. HM -- Colonoscopy or any colon cancer screening --- declined. Asymptomatic. No family hx of colon cancer. Would like to defer for now. Past medical history, appointments, medications, allergies reviewed. Previous Medical History PAST MEDICAL HISTORY Diagnosis Date Acute cholecystitis Hypothyroidism Hypothyroidism 03/23/2015 Localization-related (focal) (partial) epilepsy and epileptic syndromes with simple partial seizures, without mention of intractable epilepsy grand mal last one age 7 Microcalcifications of the breast 06/10/2013 Left breast Other specified disorder of gallbladder Rheumatoid arthritis(714.0) Sjogren's syndrome (HCC) 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 Sjogrens Syndrome Unspecified hypothyroidism Previous Surgical History PAST SURGICAL HISTORY Procedure Laterality Date ARTHROSCOPY KNEE DIAGNOSTIC W/WO SYNOVIAL BX SPX Left 86,84 Arthroscopy, knee BIOPSY OF BREAST 2013 microcalcifications COLONOSCOPY EGD LAPS SURG CHOLECYSTECTOMY W/CHOLANGIOGRAPHY 02/27/2005 NOVASURE 08/01/2015 HYSTEROSCOPY, ABLATION ENDOMETRIAL DASHAASURE PAST SURGICAL HISTORY OF MOLE REMOVAL ON BACK X 2- benign PAST SURGICAL HISTORY OF wisdom teeth Family History FAMILY HISTORY Problem Relation Age of Onset Heart Father 54 MA; Cancer Mother blood- multiple mylomia other (multiple myoloma) Mother Hypertension Maternal Grandmother Diabetes Maternal Grandmother Seizures Son Resolved Seizures Daughter Resolved other (Gallbladder Cancer) Maternal Grandfather 70 other (Lung and Brain Cancer) Paternal Grandfather 70 Breast Cancer Other 40 Breast Cancer Other 60 Breast Cancer Other 70 Patient Allergies ALLERGIES Allergen Reactions Benzol Peroxide [Ot* Rash Emycins [Other] Swelling lips Floxin [Ofloxacin] Guaifenesin Swelling lips swell Mycinette [Cetylpyr* Sulfa (Sulfonamide * Swelling face Vesicare [Solifenac* tingle tongue Z-Pack [Azithromyci* Diarrhea, Vomiting Current Medications Current Outpatient Medications on File Prior to Visit Medication Sig SYNTHROID 75 mcg tablet TAKE 1 TABLET ONCE DAILY estradiol 10 mcg vaginal suppository starter pack (IMVEXXY) Insert one insert (10 mcg) vaginally once daily twice a week montelukast (SINGULAIR) 10 mg tablet Take 1 tablet by mouth daily at bedtime. cyanocobalamin, vitamin B-12, (VITAMIN B12 ORAL) Take by mouth. CERTOLIZUMAB PEGOL (CIMZIA SUBCUTANEOUS) Inject subcutaneously. traMADOL 50 mg ORAL tablet Take 1 tablet by mouth. @ bedtime methotrexate 2.5 mg ORAL tablet Take by mouth. Take 7 tablets a week calcium carbonate/vitamin d3(CALCIUM 600 + D(3) 600 MG (1,500)-200 UNIT TAB) Take one(1) tablet twice daily. FOLIC ACID 1 MG TAB Take one(1) tablet daily. PREDNISONE 10 MG TAB as needed esomeprazole (NEXIUM) 40 mg ORAL CpDR Take one(1) capsule daily. L-LYSINE 500 MG TAB 2 tabs daily THERAPEUTIC MULTIVITAMIN TAB Take one(1) tablet daily. TYLENOL ARTHRITIS 650 MG TAB two tabs twice daily PLAQUENIL 200 MG TAB Take one tablet daily with breakfast and 1/2 tablet in the evening with dinner No current facility-administered medications on file prior to visit. Social History Social History Tobacco Use Smoking status: Never Smokeless tobacco: Never Vaping Use Vaping Use: Never used Substance Use Topics Alcohol use: No Drug use: No REVIEW OF SYSTEMS: as above Reviewed relevant PMHx, PSHx, Social Hx, current medications and allergies. Review of Symptoms REVIEW OF SYSTEMS See HPI. All other systems are negative. EXAM: BP 110/60 (BP Site: Left Arm, BP Position: Sitting, BP Cuff Size: Regular Adult) Pulse 64 Resp 14 Wt 59.9 kg (132 lb) LMP 07/05/2015 BMI 23.38 kg/m General Appearance: Well appearing, alert, in no acute distress, well-hydrated, well nourished.. Skin: Skin color, texture, turgor normal, no suspicious rashes or lesions. Head: Normocephalic, no masses, lesions, tenderness or abnormalities. Neck: Supple, no adenopathy; thyroid symmetric, normal size, no bruits. Lungs: Lungs clear to auscultation. No wheezing, rhonchi, rales.. Heart: RRR without murmur, gallop, or rubs. No ectopy. Health Maintenance List HEPATITIS B(1 of 3 - 3-dose series) Never done PNEUMOCOCCAL(1 - PCV) Never done HEPATITIS C SCREENING Never done HIV SCREENING Never done SHINGRIX VACCINE(1 of 2) Never done COLORECTAL CANCER SCREENING Never done DTAP,TDAP,TD(2 - Td or Tdap) due on 04/02/2021 COVID-19 VACCINE(4 - Booster for Moderna series) due on 05/11/2021 DEPRESSION SCREENING due on 09/16/2021 INFLUENZA(1) due on 11/29/2021 MAMMOGRAM due on 03/26/2022 ANNUAL PCP TEAM CHRONIC DISEASE VISIT due on 05/18/2022 DIABETES SCREEN due on 12/06/2022 LIPID SCREEN due on 12/27/2022 PAP TESTING due on 02/09/2025 HPV TESTING due on 02/09/2025 ASSESSMENT/PLAN: 1. Hypothyroidism due to acquired atrophy of thyroid - ICD9: 244.8, 246.8, ICD10: E03.4 (primary diagnosis) - Instructed patient on importance of taking on an empty stomach either first thing in the morning or at bedtime. - Increase Synthroid dose to 0.088 mg - Recheck blood work in 6 weeks - T3 BLD - T4 FREE/FREE THYROX - TSH BLD - LEVOTHYROXINE 88 MCG TABLET 2. Sjogrens Syndrome - ICD9: 710.2, ICD10: M35.00 Stable. Well controlled. Continue with routine visits with rheumatology. 3. Well adult exam - ICD9: V70.0, ICD10: Z00.00 - Counseled on healthy diet and regular exercise - Calcium intake with supplements or by diet of 1000 mg/day for under 50, 7486-2106 mg/day for 50+ - Colorectal cancer screening recommended - screening declined - Follow up for annual exam in one year 4. Rheumatoid arthritis of multiple sites with negative rheumatoid factor (HCC) - ICD9: 714.0, ICD10: M06.09 Stable. Well controlled. Continue with routine visits with rheumatology. 5. Family history of breast cancer - ICD9: V16.3, ICD10: Z80.3 Last mammogram normal last week. Routine yearly screening recommended. 6. Menopause - ICD9: 627.2, ICD10: Z78.0 Continue current regimen with flax seed and soy. RTO in 6 months, sooner if needed. Prescription instructions reviewed with patient as applicable. Potential red flag symptoms discussed with the patient. Reviewed appropriate action plan to take if red flag symptoms occur. Patient agreeable to treatment plan. Sendy Crowell APRN.JORDAN [address] [place] [address] documented in this encounter [facility] 12-04-2021 Miscellaneous Notes Patient phones requesting refills as follows: Requested Prescriptions Pending Prescriptions Disp Refills SYNTHROID 75 mcg tablet [Pharmacy Med Name: SYNTHROID TAB 75MCG] 90 tablet 1 Sig: TAKE 1 TABLET ONCE DAILY DIPIKA-05/18/21 Labs-12/04/21 NOV-12/10/21 med filled 06/27/21 Please review and advise. Marine Alonzo LPN documented in this encounter [facility] 12-04-2021 History of Present illness Narrative Radiology Service Progress Note PATIENT NAME: Khloe Flores DATE OF SERVICE: December 04, 2021 TIME: 8:12 AM PATIENT IDENTITY VERIFICATION COMPLETED USING TWO (2) IDENTIFIERS: Name and Date of confirmed by patient verbally. FALL SCREENING: Has the patient had 2 falls in the last year or 1 fall with injury or currently using an Ambulatory Assistive Device (Walker, Cane, Wheelchair, Crutches, etc.)? No PATIENT GENDER DATA: Female. status: : No status: NO. PATIENT RELEVANT IMPLANT DATA REVIEWED: Not Applicable RADIOLOGY DEPARTMENT: Mammography PERIPHERAL IV DATA: Not applicable SIGNED BY: RT Roque(R) December 04, 2021 8:12 AM documented in this encounter [facility] 11-20-2021 Miscellaneous Notes New rx was sent 09/26/21 to [facility]. Ruchi Rowe RN documented in this encounter [facility] 09-26-2021 Miscellaneous Notes Order signed. Kendra Millan APRN.CNM Patient request for medication is as follows: Pending Prescriptions Disp Refills ESTRADIOL 10 MCG VAGINAL INSERT, IN A STARTER DOSE PACK 54 Suppository 0 Sig: Insert one insert (10 mcg) vaginally once daily twice a week ASIYA: No Last annual exam: 03/26/21 Please approve the above prescription(s) to electronically send to pharmacy. Nallely Malagon RN documented in this encounter [facility] 06-27-2021 Miscellaneous Notes Pending Prescriptions Disp Refills LEVOTHYROXINE 75 MCG TABLET 90 tablet 1 Sig: Take 1 tablet by mouth once daily. ASIYA: No MONTELUKAST 10 MG TABLET 90 tablet 2 Sig: Take 1 tablet by mouth daily at bedtime. ASIYA: No DIPIKA 05/18/21 NOV 12/10/21 Tsering Fischer Ma documented in this encounter [facility] 05-29-2021 Note HNO ID: [id number] Author: RT Marlene(R) Service: Radiology Author Type: Technologist Type: Progress Notes Filed: 05/29/2021 4:01 PM Note Text: Radiology Service Progress Note DATE OF SERVICE: May 29, 2021 TIME: 4:01 PM PATIENT IDENTITY VERIFICATION COMPLETED USING TWO (2) STANDARD IDENTIFIERS: Name and Date of confirmed by patient verbally and Name and Date of confirmed by identification band. FALL SCREENING: Has the patient had 2 falls in the last year or 1 fall with injury or currently using an Ambulatory Assistive Device (Walker, Cane, Wheelchair, Crutches, etc.)? No PATIENT GENDER DATA: Female. status: : No status: NO. PATIENT RELEVANT IMPLANT DATA REVIEWED: Yes ALLERGIES: Reviewed and unchanged CONTRAST ALLERGY: NO. EXAM: MRI - CONTRAST TYPE: GROUP II PERIPHERAL IV DATA: Ambulatory: A peripheral IV was started in the Left antecubital site with a Angio cath: 22 gauge. RADIOLOGY DEPARTMENT: MR; Exam(s) Completed: Chest: Breast SIGNATURE: Eliud Granda, JIM PATIENT NAME: Khloe Flores DATE: May 29, 2021 TIME: 4:01 PM [facility] 05-27-2013 History of Past i llness Narrative Problem Noted Date Resolved Date Abnormal mammogram, unspecified 05/27/2013 03/06/2015 Loss of weight 08/02/2005 03/06/2015 HYPOTHYROIDISM NOS 07/12/2005 03/23/2015 Other malaise and fatigue 07/12/20052014 Myalgia and myositis, unspecified 07/12/2005 03/06/2015 Chronic cholecystitis 02/14/2005 03/06/2015 documented as of this encounter (statuses as of 06/27/2021) [facility] History of Past illness Narrative* Problem Noted Date Resolved Date Abnormal mammogram, unspecified 05/27/2013 03/06/2015 Loss of weight 08/02/2005 03/06/2015 HYPOTHYROIDISM NOS 07/12/2005 03/23/2015 Other malaise and fatigue 07/12/20052014 Myalgia and myositis, unspecified 07/12/2005 03/06/2015 Chronic cholecystitis 02/14/2005 03/06/2015 documented as of this encounter (statuses as of 09/26/2021) [facility] History of Past illness Narrative* Problem Noted Date Resolved Date Abnormal mammogram, unspecified 05/27/2013 03/06/2015 Loss of weight 08/02/2005 03/06/2015 HYPOTHYROIDISM NOS 07/12/2005 03/23/2015 Other malaise and fatigue 07/12/20052014 Myalgia and myositis, unspecified 07/12/2005 03/06/2015 Chronic cholecystitis 02/14/2005 03/06/2015 documented as of this encounter (statuses as of 11/20/2021) [facility] History of Past illness Narrative* Problem Noted Date Resolved Date Abnormal mammogram, unspecified 05/27/2013 03/06/2015 Loss of weight 08/02/2005 03/06/2015 HYPOTHYROIDISM NOS 07/12/2005 03/23/2015 Other malaise and fatigue 07/12/20052014 Myalgia and myositis, unspecified 07/12/2005 03/06/2015 Chronic cholecystitis 02/14/2005 03/06/2015 documented as of this encounter (statuses as of 12/05/2021) [facility] History of Past illness Narrative* Problem Noted Date Resolved Date Abnormal mammogram, unspecified 05/27/2013 03/06/2015 Loss of weight 08/02/2005 03/06/2015 HYPOTHYROIDISM NOS 07/12/2005 03/23/2015 Other malaise and fatigue 07/12/20052014 Myalgia and myositis, unspecified 07/12/2005 03/06/2015 Chronic cholecystitis 02/14/2005 03/06/2015 documented as of this encounter (statuses as of 12/05/2021) [facility] History of Past illness Narrative* Problem Noted Date Resolved Date Abnormal mammogram, unspecified 05/27/2013 03/06/2015 Loss of weight 08/02/2005 03/06/2015 HYPOTHYROIDISM NOS 07/12/2005 03/23/2015 Other malaise and fatigue 07/12/20052014 Myalgia and myositis, unspecified 07/12/2005 03/06/2015 Chronic cholecystitis 02/14/2005 03/06/2015 documented as of this encounter (statuses as of 12/10/2021) [facility] History of Past illness Narrative* Problem Noted Date Resolved Date Abnormal mammogram, unspecified 05/27/2013 03/06/2015 Loss of weight 08/02/2005 03/06/2015 HYPOTHYROIDISM NOS 07/12/2005 03/23/2015 Other malaise and fatigue 07/12/20052014 Myalgia and myositis, unspecified 07/12/2005 03/06/2015 Chronic cholecystitis 02/14/2005 03/06/2015 documented as of this encounter (statuses as of 12/10/2021) [facility] History of Past illness Narrative* Problem Noted Date Resolved Date Abnormal mammogram, unspecified 05/27/2013 03/06/2015 Loss of weight 08/02/2005 03/06/2015 HYPOTHYROIDISM NOS 07/12/2005 03/23/2015 Other malaise and fatigue 07/12/20052014 Myalgia and myositis, unspecified 07/12/2005 03/06/2015 Chronic cholecystitis 02/14/2005 03/06/2015 documented as of this encounter (statuses as of 12/10/2021) [facility] History of Past illness Narrative* Problem Noted Date Resolved Date Abnormal mammogram, unspecified 05/27/2013 03/06/2015 Loss of weight 08/02/2005 03/06/2015 HYPOTHYROIDISM NOS 07/12/2005 03/23/2015 Other malaise and fatigue 07/12/20052014 Myalgia and myositis, unspecified 07/12/2005 03/06/2015 Chronic cholecystitis 02/14/2005 03/06/2015 documented as of this encounter (statuses as of 01/24/2022) [facility] History of Past illness Narrative* Problem Noted Date Resolved Date Abnormal mammogram, unspecified 05/27/2013 03/06/2015 Loss of weight 08/02/2005 03/06/2015 HYPOTHYROIDISM NOS 07/12/2005 03/23/2015 Other malaise and fatigue 07/12/20052014 Myalgia and myositis, unspecified 07/12/2005 03/06/2015 Chronic cholecystitis 02/14/2005 03/06/2015 documented as of this encounter (statuses as of 04/03/2022) [facility] History of Past illness Narrative* Problem Noted Date Resolved Date Abnormal mammogram, unspecified 05/27/2013 03/06/2015 Loss of weight 08/02/2005 03/06/2015 HYPOTHYROIDISM NOS 07/12/2005 03/23/2015 Other malaise and fatigue 07/12/20052014 Myalgia and myositis, unspecified 07/12/2005 03/06/2015 Chronic cholecystitis 02/14/2005 03/06/2015 documented as of this encounter (statuses as of 05/21/2022) [facility] History of Past illness Narrative* Problem Noted Date Resolved Date Abnormal mammogram, unspecified 05/27/2013 03/06/2015 Loss of weight 08/02/2005 03/06/2015 HYPOTHYROIDISM NOS 07/12/2005 03/23/2015 Other malaise and fatigue 07/12/20052014 Myalgia and myositis, unspecified 07/12/2005 03/06/2015 Chronic cholecystitis 02/14/2005 03/06/2015 documented as of this encounter (statuses as of 06/10/2022) [facility] History of Past illness Narrative* Problem Noted Date Resolved Date Abnormal mammogram, unspecified 05/27/2013 03/06/2015 Loss of weight 08/02/2005 03/06/2015 HYPOTHYROIDISM NOS 07/12/2005 03/23/2015 Other malaise and fatigue 07/12/20052014 Myalgia and myositis, unspecified 07/12/2005 03/06/2015 Chronic cholecystitis 02/14/2005 03/06/2015 documented as of this encounter (statuses as of 06/10/2022) [facility] History of Past illness Narrative* Problem Noted Date Resolved Date Abnormal mammogram, unspecified 05/27/2013 03/06/2015 Loss of weight 08/02/2005 03/06/2015 HYPOTHYROIDISM NOS 07/12/2005 03/23/2015 Other malaise and fatigue 07/12/20052014 Myalgia and myositis, unspecified 07/12/2005 03/06/2015 Chronic cholecystitis 02/14/2005 03/06/2015 documented as of this encounter (statuses as of 07/04/2022) [facility] History of Past illness Narrative* Problem Noted Date Diagnosed Date Resolved Date Abnormal mammogram, unspecified 05/27/2013 03/06/2015 Loss of weight 08/02/2005 03/06/2015 HYPOTHYROIDISM NOS 07/12/2005 5 Other malaise and fatigue 07/12/2005 Myalgia and myositis, unspecified 07/12/2005 03/06/2015 Chronic cholecystitis 02/14/20052014 documented as of this encounter (statuses as of 12/09/2022) [facility] History of Past illness Narrative* Problem Noted Date Diagnosed Date Resolved Date Abnormal mammogram, unspecified 05/27/2013 03/06/2015 Loss of weight 08/02/2005 03/06/2015 HYPOTHYROIDISM NOS 07/12/2005 5 Other malaise and fatigue 07/12/2005 Myalgia and myositis, unspecified 07/12/2005 03/06/2015 Chronic cholecystitis 02/14/20052014 documented as of this encounter (statuses as of 12/10/2022) [facility] History of Past illness Narrative* Problem Noted Date Diagnosed Date Resolved Date Abnormal mammogram, unspecified 05/27/2013 03/06/2015 Loss of weight 08/02/2005 03/06/2015 HYPOTHYROIDISM NOS 07/12/2005 5 Other malaise and fatigue 07/12/2005 Myalgia and myositis, unspecified 07/12/2005 03/06/2015 Chronic cholecystitis 02/14/20052014 documented as of this encounter (statuses as of 01/06/2023) [facility] History of Past illness Narrative* Problem Noted Date Diagnosed Date Resolved Date Abnormal mammogram, unspecified 05/27/2013 03/06/2015 Loss of weight 08/02/2005 03/06/2015 HYPOTHYROIDISM NOS 07/12/2005 5 Other malaise and fatigue 07/12/2005 Myalgia and myositis, unspecified 07/12/2005 03/06/2015 Chronic cholecystitis 02/14/20052014 documented as of this encounter (statuses as of 01/07/2023) [facility] History of Past illness Narrative* Problem Noted Date Diagnosed Date Resolved Date Abnormal mammogram, unspecified 05/27/2013 03/06/2015 Loss of weight 08/02/2005 03/06/2015 HYPOTHYROIDISM NOS 07/12/2005 5 Other malaise and fatigue 07/12/2005 Myalgia and myositis, unspecified 07/12/2005 03/06/2015 Chronic cholecystitis 02/14/20052014 documented as of this encounter (statuses as of 01/08/2023) [facility] History of Past illness Narrative* Problem Noted Date Diagnosed Date Resolved Date Abnormal mammogram, unspecified 05/27/2013 03/06/2015 Loss of weight 08/02/2005 03/06/2015 HYPOTHYROIDISM NOS 07/12/2005 5 Other malaise and fatigue 07/12/2005 Myalgia and myositis, unspecified 07/12/2005 03/06/2015 Chronic cholecystitis 02/14/20052014 documented as of this encounter (statuses as of 01/15/2023) [facility] History of Past illness Narrative* Problem Noted Date Diagnosed Date Resolved Date Abnormal mammogram, unspecified 05/27/2013 03/06/2015 Loss of weight 08/02/2005 03/06/2015 HYPOTHYROIDISM NOS 07/12/2005 5 Other malaise and fatigue 07/12/2005 Myalgia and myositis, unspecified 07/12/2005 03/06/2015 Chronic cholecystitis 02/14/20052014 documented as of this encounter (statuses as of 01/16/2023) [facility] History of Past illness Narrative* Problem Noted Date Diagnosed Date Resolved Date Abnormal mammogram, unspecified 05/27/2013 03/06/2015 Loss of weight 08/02/2005 03/06/2015 HYPOTHYROIDISM NOS 07/12/2005 5 Other malaise and fatigue 07/12/2005 Myalgia and myositis, unspecified 07/12/2005 03/06/2015 Chronic cholecystitis 02/14/20052014 documented as of this encounter (statuses as of 01/31/2023) [facility] History of Past illness Narrative* Problem Noted Date Diagnosed Date Resolved Date Abnormal mammogram, unspecified 05/27/2013 03/06/2015 Loss of weight 08/02/2005 03/06/2015 HYPOTHYROIDISM NOS 07/12/2005 5 Other malaise and fatigue 07/12/2005 Myalgia and myositis, unspecified 07/12/2005 03/06/2015 Chronic cholecystitis 02/14/20052014 documented as of this encounter (statuses as of 01/31/2023) [facility] History of Past illness Narrative* Problem Noted Date Diagnosed Date Resolved Date Abnormal mammogram, unspecified 05/27/2013 03/06/2015 Loss of weight 08/02/2005 03/06/2015 HYPOTHYROIDISM NOS 07/12/2005 5 Other malaise and fatigue 07/12/2005 Myalgia and myositis, unspecified 07/12/2005 03/06/2015 Chronic cholecystitis 02/14/20052014 documented as of this encounter (statuses as of 02/12/2023) [facility] History of Past illness Narrative* Problem Noted Date Diagnosed Date Resolved Date Abnormal mammogram, unspecified 05/27/2013 03/06/2015 Loss of weight 08/02/2005 03/06/2015 HYPOTHYROIDISM NOS 07/12/2005 5 Other malaise and fatigue 07/12/2005 Myalgia and myositis, unspecified 07/12/2005 03/06/2015 Chronic cholecystitis 02/14/20052014 documented as of this encounter (statuses as of 02/13/2023) [facility] History of Past illness Narrative* Problem Noted Date Diagnosed Date Resolved Date Abnormal mammogram, unspecified 05/27/2013 03/06/2015 Loss of weight 08/02/2005 03/06/2015 HYPOTHYROIDISM NOS 07/12/2005 5 Other malaise and fatigue 07/12/2005 Myalgia and myositis, unspecified 07/12/2005 03/06/2015 Chronic cholecystitis 02/14/20052014 documented as of this encounter (statuses as of 02/13/2023) [facility] History of Past illness Narrative* Problem Noted Date Diagnosed Date Resolved Date Abnormal mammogram, unspecified 05/27/2013 03/06/2015 Loss of weight 08/02/2005 03/06/2015 HYPOTHYROIDISM NOS 07/12/2005 5 Other malaise and fatigue 07/12/2005 Myalgia and myositis, unspecified 07/12/2005 03/06/2015 Chronic cholecystitis 02/14/20052014 documented as of this encounter (statuses as of 02/14/2023) [facility] History of Past illness Narrative* Problem Noted Date Diagnosed Date Resolved Date Abnormal mammogram, unspecified 05/27/2013 03/06/2015 Loss of weight 08/02/2005 03/06/2015 HYPOTHYROIDISM NOS 07/12/2005 5 Other malaise and fatigue 07/12/2005 Myalgia and myositis, unspecified 07/12/2005 03/06/2015 Chronic cholecystitis 02/14/20052014 documented as of this encounter (statuses as of 02/17/2023) [facility] History of Past illness Narrative* Problem Noted Date Diagnosed Date Resolved Date Abnormal mammogram, unspecified 05/27/2013 03/06/2015 Loss of weight 08/02/2005 03/06/2015 HYPOTHYROIDISM NOS 07/12/2005 5 Other malaise and fatigue 07/12/2005 Myalgia and myositis, unspecified 07/12/2005 03/06/2015 Chronic cholecystitis 02/14/20052014 documented as of this encounter (statuses as of 02/24/2023) [facility] History of Past illness Narrative* Problem Noted Date Diagnosed Date Resolved Date Abnormal mammogram, unspecified 05/27/2013 03/06/2015 Loss of weight 08/02/2005 03/06/2015 HYPOTHYROIDISM NOS 07/12/2005 5 Other malaise and fatigue 07/12/2005 Myalgia and myositis, unspecified 07/12/2005 03/06/2015 Chronic cholecystitis 02/14/20052014 documented as of this encounter (statuses as of 02/24/2023) [facility] History of Past illness Narrative* Problem Noted Date Diagnosed Date Resolved Date Abnormal mammogram, unspecified 05/27/2013 03/06/2015 Loss of weight 08/02/2005 03/06/2015 HYPOTHYROIDISM NOS 07/12/2005 5 Other malaise and fatigue 07/12/2005 Myalgia and myositis, unspecified 07/12/2005 03/06/2015 Chronic cholecystitis 02/14/20052014 documented as of this encounter (statuses as of 03/06/2023) [facility] History of Past illness Narrative* Problem Noted Date Diagnosed Date Resolved Date Abnormal mammogram, unspecified 05/27/2013 03/06/2015 Loss of weight 08/02/2005 03/06/2015 HYPOTHYROIDISM NOS 07/12/2005 5 Other malaise and fatigue 07/12/2005 Myalgia and myositis, unspecified 07/12/2005 03/06/2015 Chronic cholecystitis 02/14/20052014 documented as of this encounter (statuses as of 03/12/2023) [facility] History of Past illness Narrative* Problem Noted Date Diagnosed Date Resolved Date Abnormal mammogram, unspecified 05/27/2013 03/06/2015 Loss of weight 08/02/2005 03/06/2015 HYPOTHYROIDISM NOS 07/12/2005 5 Other malaise and fatigue 07/12/2005 Myalgia and myositis, unspecified 07/12/2005 03/06/2015 Chronic cholecystitis 02/14/20052014 documented as of this encounter (statuses as of 05/05/2023) [facility] History of Past illness Narrative* Problem Noted Date Diagnosed Date Resolved Date Abnormal mammogram, unspecified 05/27/2013 03/06/2015 Loss of weight 08/02/2005 03/06/2015 HYPOTHYROIDISM NOS 07/12/2005 5 Other malaise and fatigue 07/12/2005 Myalgia and myositis, unspecified 07/12/2005 03/06/2015 Chronic cholecystitis 02/14/20052014 documented as of this encounter (statuses as of 05/07/2023) [facility] History of Past illness Narrative* Problem Noted Date Diagnosed Date Resolved Date Abnormal mammogram, unspecified 05/27/2013 03/06/2015 Loss of weight 08/02/2005 03/06/2015 HYPOTHYROIDISM NOS 07/12/2005 5 Other malaise and fatigue 07/12/2005 Myalgia and myositis, unspecified 07/12/2005 03/06/2015 Chronic cholecystitis 02/14/20052014 documented as of this encounter (statuses as of 05/16/2023) [facility] History of Past illness Narrative* Problem Noted Date Diagnosed Date Resolved Date Abnormal mammogram, unspecified 05/27/2013 03/06/2015 Loss of weight 08/02/2005 03/06/2015 HYPOTHYROIDISM NOS 07/12/2005 5 Other malaise and fatigue 07/12/2005 Myalgia and myositis, unspecified 07/12/2005 03/06/2015 Chronic cholecystitis 02/14/20052014 documented as of this encounter (statuses as of 05/16/2023) [facility] History of Past illness Narrative* Problem Noted Date Diagnosed Date Resolved Date Abnormal mammogram, unspecified 05/27/2013 03/06/2015 Loss of weight 08/02/2005 03/06/2015 HYPOTHYROIDISM NOS 07/12/2005 5 Other malaise and fatigue 07/12/2005 Myalgia and myositis, unspecified 07/12/2005 03/06/2015 Chronic cholecystitis 02/14/20052014 documented as of this encounter (statuses as of 05/16/2023) [facility] History of Past illness Narrative* Problem Noted Date Diagnosed Date Resolved Date Abnormal mammogram, unspecified 05/27/2013 03/06/2015 Loss of weight 08/02/2005 03/06/2015 HYPOTHYROIDISM NOS 07/12/2005 5 Other malaise and fatigue 07/12/2005 Myalgia and myositis, unspecified 07/12/2005 03/06/2015 Chronic cholecystitis 02/14/20052014 documented as of this encounter (statuses as of 05/17/2023) [facility] History of Past illness Narrative* Problem Noted Date Diagnosed Date Resolved Date Abnormal mammogram, unspecified 05/27/2013 03/06/2015 Loss of weight 08/02/2005 03/06/2015 HYPOTHYROIDISM NOS 07/12/2005 5 Other malaise and fatigue 07/12/2005 Myalgia and myositis, unspecified 07/12/2005 03/06/2015 Chronic cholecystitis 02/14/20052014 documented as of this encounter (statuses as of 05/17/2023) [facility] History of Past illness Narrative* Problem Noted Date Diagnosed Date Resolved Date Abnormal mammogram, unspecified 05/27/2013 03/06/2015 Loss of weight 08/02/2005 03/06/2015 HYPOTHYROIDISM NOS 07/12/2005 5 Other malaise and fatigue 07/12/2005 Myalgia and myositis, unspecified 07/12/2005 03/06/2015 Chronic cholecystitis 02/14/20052014 documented as of this encounter (statuses as of 05/19/2023) [facility] History of Past illness Narrative* Problem Noted Date Diagnosed Date Resolved Date Abnormal mammogram, unspecified 05/27/2013 03/06/2015 Loss of weight 08/02/2005 03/06/2015 HYPOTHYROIDISM NOS 07/12/2005 5 Other malaise and fatigue 07/12/2005 Myalgia and myositis, unspecified 07/12/2005 03/06/2015 Chronic cholecystitis 02/14/20052014 documented as of this encounter (statuses as of 05/19/2023) [facility] History of Past illness Narrative* Problem Noted Date Diagnosed Date Resolved Date Abnormal mammogram, unspecified 05/27/2013 03/06/2015 Loss of weight 08/02/2005 03/06/2015 HYPOTHYROIDISM NOS 07/12/2005 5 Other malaise and fatigue 07/12/2005 Myalgia and myositis, unspecified 07/12/2005 03/06/2015 Chronic cholecystitis 02/14/20052014 documented as of this encounter (statuses as of 05/20/2023) [facility] History of Past illness Narrative* Problem Noted Date Diagnosed Date Resolved Date Abnormal mammogram, unspecified 05/27/2013 03/06/2015 Loss of weight 08/02/2005 03/06/2015 HYPOTHYROIDISM NOS 07/12/2005 5 Other malaise and fatigue 07/12/2005 Myalgia and myositis, unspecified 07/12/2005 03/06/2015 Chronic cholecystitis 02/14/20052014 documented as of this encounter (statuses as of 05/21/2023) [facility] History of Past illness Narrative* Problem Noted Date Diagnosed Date Resolved Date Abnormal mammogram, unspecified 05/27/2013 03/06/2015 Loss of weight 08/02/2005 03/06/2015 HYPOTHYROIDISM NOS 07/12/2005 5 Other malaise and fatigue 07/12/2005 Myalgia and myositis, unspecified 07/12/2005 03/06/2015 Chronic cholecystitis 02/14/20052014 documented as of this encounter (statuses as of 05/28/2023) [facility] History of Past illness Narrative* Problem Noted Date Diagnosed Date Resolved Date Abnormal mammogram, unspecified 05/27/2013 03/06/2015 Loss of weight 08/02/2005 03/06/2015 HYPOTHYROIDISM NOS 07/12/2005 5 Other malaise and fatigue 07/12/2005 Myalgia and myositis, unspecified 07/12/2005 03/06/2015 Chronic cholecystitis 02/14/20052014 documented as of this encounter (statuses as of 05/28/2023) [facility] History of Past illness Narrative* Problem Noted Date Diagnosed Date Resolved Date Abnormal mammogram, unspecified 05/27/2013 03/06/2015 Loss of weight 08/02/2005 03/06/2015 HYPOTHYROIDISM NOS 07/12/2005 5 Other malaise and fatigue 07/12/2005 Myalgia and myositis, unspecified 07/12/2005 03/06/2015 Chronic cholecystitis 02/14/20052014 documented as of this encounter (statuses as of 06/09/2023) [facility] History of Past illness Narrative* Problem Noted Date Diagnosed Date Resolved Date Abnormal mammogram, unspecified 05/27/2013 03/06/2015 Loss of weight 08/02/2005 03/06/2015 HYPOTHYROIDISM NOS 07/12/2005 5 Other malaise and fatigue 07/12/2005 Myalgia and myositis, unspecified 07/12/2005 03/06/2015 Chronic cholecystitis 02/14/20052014 documented as of this encounter (statuses as of 06/12/2023) [facility] History of Past illness Narrative* Problem Noted Date Diagnosed Date Resolved Date Abnormal mammogram, unspecified 05/27/2013 03/06/2015 Loss of weight 08/02/2005 03/06/2015 HYPOTHYROIDISM NOS 07/12/2005 5 Other malaise and fatigue 07/12/2005 Myalgia and myositis, unspecified 07/12/2005 03/06/2015 Chronic cholecystitis 02/14/20052014 documented as of this encounter (statuses as of 06/25/2023) [facility] History of Past illness Narrative* Problem Noted Date Diagnosed Date Resolved Date Abnormal mammogram, unspecified 05/27/2013 03/06/2015 Loss of weight 08/02/2005 03/06/2015 HYPOTHYROIDISM NOS 07/12/2005 5 Other malaise and fatigue 07/12/2005 Myalgia and myositis, unspecified 07/12/2005 03/06/2015 Chronic cholecystitis 02/14/20052014 documented as of this encounter (statuses as of 07/01/2023) [facility] History of Past illness Narrative* Problem Noted Date Diagnosed Date Resolved Date Abnormal mammogram, unspecified 05/27/2013 03/06/2015 Loss of weight 08/02/2005 03/06/2015 HYPOTHYROIDISM NOS 07/12/2005 5 Other malaise and fatigue 07/12/2005 Myalgia and myositis, unspecified 07/12/2005 03/06/2015 Chronic cholecystitis 02/14/20052014 documented as of this encounter (statuses as of 07/02/2023) [facility] Diagnosis Hypothyroidism due to acquired atrophy of thyroid Sjogrens Syndrome Sicca syndrome [facility] Abnormal [facility] with microcalcification Mammographic microcalcification [facility] Diagnosis Hypothyroidism due to acquired atrophy of thyroid [facility] Diagnosis Hypothyroidism due to acquired atrophy of thyroid- Primary Sjogrens Syndrome Sicca syndrome Well adult exam Routine general medical examination at a health care facility Rheumatoid arthritis of multiple sites with negative rheumatoid factor (HCC) Family history of breast cancer Family history of malignant neoplasm of breast Menopause Symptomatic menopausal or female climacteric states [facility] Diagnosis Hypothyroidism due to acquired atrophy of thyroid [facility] Encounter for gynecological examination with abnormal finding- Primary Routine gynecological examination Encounter for screening mammogram for breast cancer Breast density Other sign and symptom in breast Vaginal atrophy Postmenopausal atrophic vaginitis [facility] Diagnosis Hypothyroidism due to acquired atrophy of thyroid- Primary Sjogrens Syndrome Sicca syndrome Need for Tdap vaccination Need for prophylactic vaccination with combined [id number] (DTP) vaccine Screening for lipid disorders History of hepatitis B vaccination Other specified conditions influencing health status Screening for osteoporosis Special screening for osteoporosis Rheumatoid arthritis of multiple sites with negative rheumatoid factor (HCC) [facility] Diagnosis Vitamin D deficiency- Primary Unspecified vitamin D deficiency Hypothyroidism due to acquired atrophy of thyroid Rash Rash and other nonspecific skin eruption Elevated MCV Other abnormality of red blood cells [facility] Diagnosis Rash Rash and other nonspecific skin eruption [facility] Diagnosis Screening for osteoporosis Special screening for osteoporosis [facility] Diagnosis Breast density Other sign and symptom in breast [facility] Diagnosis Left hip pain- Primary Pain in joint, pelvic region and thigh Fever, unspecified fever cause Fatigue, unspecified type Hip swelling, left Rash Rash and other nonspecific skin eruption Macular erythematous rash Rash and other nonspecific skin eruption Localized swelling, mass, or lump of left lower extremity [facility] Diagnosis Left hip pain Pain in joint, pelvic region and thigh Fever, unspecified fever cause Hip swelling, left Rash Rash and other nonspecific skin eruption Macular erythematous rash Rash and other nonspecific skin eruption [facility] Diagnosis Left hip pain Pain in joint, pelvic region and thigh Fever, unspecified fever cause Hip swelling, left Rash Rash and other nonspecific skin eruption Macular erythematous rash Rash and other nonspecific skin eruption Localized swelling, mass, or lump of left lower extremity [facility] Diagnosis Lyme disease- Primary Left hip pain Pain in joint, pelvic region and thigh Fever, unspecified fever cause Fatigue, unspecified type [facility] Diagnosis Sjogrens Syndrome Sicca syndrome [facility] Diagnosis Left leg numbness- Primary Disturbance of skin sensation Tick bite, unspecified site, sequela Lyme disease [facility] Diagnosis Hypothyroidism due to acquired atrophy of thyroid [facility] Encounter for gynecological examination (general) (routine) without abnormal findings- Primary Encounter for screening mammogram for breast cancer Postmenopausal Asymptomatic postmenopausal status (age-related) (natural) Family history of breast cancer Family history of malignant neoplasm of breast [facility] Diagnosis Lyme disease Left leg numbness Disturbance of skin sensation Lumbosacral radiculopathy at L5 Thoracic or lumbosacral neuritis or radiculitis, unspecified Lumbosacral radiculopathy at S1 Thoracic or lumbosacral neuritis or radiculitis, unspecified [facility] Diagnosis Encounter for screening mammogram for malignant neoplasm of breast Other screening mammogram [facility] Diagnosis Breast asymmetry in female- Primary Other specified disorders of breast [facility] Diagnosis Weakness of left lower extremity- Primary Lumbosacral radiculopathy at L5 Thoracic or lumbosacral neuritis or radiculitis, unspecified Lumbosacral radiculopathy at S1 Thoracic or lumbosacral neuritis or radiculitis, unspecified [facility] Diagnosis Breast asymmetry in female Other specified disorders of breast [facility] Diagnosis Weakness of left lower extremity- Primary Lumbosacral radiculopathy at L5 Thoracic or lumbosacral neuritis or radiculitis, unspecified Lumbosacral radiculopathy at S1 Thoracic or lumbosacral neuritis or radiculitis, unspecified [facility] Diagnosis Well adult exam- Primary Routine general medical examination at a [facility] care facility Hypothyroidism due to acquired atrophy of thyroid Dyslipidemia Other and unspecified hyperlipidemia Vitamin D deficiency Unspecified vitamin D deficiency Lyme disease Left hip pain Pain in joint, pelvic region and thigh Rheumatoid arthritis of multiple sites with negative rheumatoid factor (HCC) [facility] Diagnosis Weakness of left lower extremity- Primary Lumbosacral radiculopathy at L5 Thoracic or lumbosacral neuritis or radiculitis, unspecified Lumbosacral radiculopathy at S1 Thoracic or lumbosacral neuritis or radiculitis, unspecified [facility] Diagnosis Weakness of left lower extremity- Primary Lumbosacral radiculopathy at L5 Thoracic or lumbosacral neuritis or radiculitis, unspecified Lumbosacral radiculopathy at S1 Thoracic or lumbosacral neuritis or radiculitis, unspecified documented in this encounter [facility]* Diagnosis Weakness of left lower extremity- Primary Lumbosacral radiculopathy at L5 Thoracic or lumbosacral neuritis or radiculitis, unspecified Lumbosacral radiculopathy at S1 Thoracic or lumbosacral neuritis or radiculitis, unspecified documented in this encounter [facility] note* Diagnosis Weakness of left lower extremity- Primary Lumbosacral radiculopathy at L5 Thoracic or lumbosacral neuritis or radiculitis, unspecified Lumbosacral radiculopathy at S1 Thoracic or lumbosacral neuritis or radiculitis, unspecified documented in this encounter [facility] note* Diagnosis Tick bite of left foot, initial encounter- Primary Lyme disease Elevated BP without diagnosis of hypertension documented in this encounter [facility]* Diagnosis Hypothyroidism due to acquired atrophy of thyroid documented in this encounter [facility]* Diagnosis Sjogrens Syndrome Sicca syndrome documented in this encounter [facility]* Diagnosis Hypothyroidism due to acquired atrophy of thyroid- Primary documented in this encounter [facility]* Diagnosis Hypothyroidism due to acquired atrophy of thyroid documented in this encounter [facility]* Diagnosis Hypothyroidism due to acquired atrophy of thyroid- Primary Rheumatoid arthritis of multiple sites with negative rheumatoid factor (HCC) Hypoglycemia Hypoglycemia, unspecified Edema of both legs Edema documented in this encounter [facility]* Diagnosis Bacterial sinusitis- Primary Unspecified sinusitis (chronic) Antibiotic-induced yeast infection Candidiasis of unspecified site documented in this encounter [facility] for referral (narrative)* Diagnostic Procedure Only (Routine) - Authorized Specialty Diagnoses / Procedures Referred By Isabell boston Referred To Contact BR IMAGING Diagnoses Breast density Procedures KEILY SCREENING W DOROTEO SCREENING DIGITAL BREAST TOMOSYNTHESIS BI SCREENING MAMMOGRAPHY BI 2-VIEW BREAST INC Kendra Geiger APRN.CNM [address] [place] [address] [facility] [address] [place] [address] Referral ID Status Reason Start Date Expiration Date Visits Requested Visits Authorized [id number] Authorized Auto-Generat ed Referral 04/28/2023 1 1 [facility] for referral (narrative)* Diagnostic Procedure Only (Routine) - Closed Specialty Diagnoses / Procedures Referred By Contac t Referred To Contact BR IMAGING Diagnoses Breast density Procedures KEILY SCREENING W DOROTEO SCREENING DIGITAL BREAST TOMOSYNTHESIS BI SCREENING MAMMOGRAPHY BI 2-VIEW BREAST INC Kendra Geiger APRN.CNM [address] [place] [address] [facility] [address] [place] [address] Referral ID Status Reason Start Date Expiration Date V isits Requested Visits Authorized [id number] Closed Auto-Generate d Referral 03/29/2022 04/28/2023 1 1 [facility] for referral (narrative)* Diagnostic Procedure Only (Routine) - Closed Specialty Diagnoses / Procedures Referred By Contac t Referred To Contact XR IMAGING Diagnoses Left hip pain Fever, unspecified fever cause Hip swelling, left Rash Macular erythematous rash Procedures XR HIP GENERAL 3V PELV/AP/LAT LEFT RADEX HIP UNILATERAL WITH PELVIS 2-3 VIEWS Jan George DO [address] [place] [address] [place] [address] Referral ID Status Reason Start Date Expiration Date V isits Requested Visits Authorized [id number] Closed Auto-Generate d Referral 02/12/2023 03/13/2024 1 1 * MRI/CT (Urgent) - Open Specialty Diagnoses / Procedures Referred By Contac t Referred To Contact CT IMAGING Diagnoses Left hip pain Fever, unspecified fever cause Hip swelling, left Rash Macular erythematous rash Localized swelling, mass, or lump of left lower extremity Procedures CT HIP WO IVCON LEFT CT LOWER EXTREMITY W/O CONTRAST MATERIAL Jan George, [address] [place] [address] [place] [address] Referral ID Status Reason Start Date Expiration Date V isits Requested Visits Authorized [id number] Open Clearance Not Met - Admin/Chairm an/Director Advise to Postpone/Res chedule or Not Proceed 02/12/2023 03/13/2024 1 1 [facility] for referral (narrative)* Diagnostic Procedure Only (Routine) - Authorized Specialty Diagnoses / Procedures Referred By Isabell boston Referred To Contact BR IMAGING Diagnoses Encounter for gynecological examination (general) (routine) without abnormal findings Encounter for screening mammogram for breast cancer Procedures KEILY SCREENING W DOROTEO SCREENING DIGITAL BREAST TOMOSYNTHESIS BI SCREENING MAMMOGRAPHY BI 2-VIEW BREAST INC Kendra Geiger APRN.CNM [address] [place] [address] [facility] [address] [place] [address] Referral ID Status Reason Start Date Expiration Date Visits Requested Visits Authorized [id number] Authorized Auto-Generat ed Referral 05/16/2023 06/14/2024 1 1 [facility] for referral (narrative)* Diagnostic Procedure Only (Routine) - Authorized Specialty Diagnoses / Procedures Referred By Contac t Referred To Contact BR IMAGING Diagnoses Breast asymmetry in female Procedures US BREAST LTD LEFT US BREAST UNI REAL TIME WITH IMAGE LIMITED Arlen Cedillo APRN.CNM [address] [place] [address] [facility] Imaging [address] [place] [address] Referral ID Status Reason Start Date Expiration Date Visits Requested Visits Authorized [id number] Authorized Auto-Generat ed Referral 05/19/2023 06/17/2024 1 1 [facility] for referral (narrative)* Diagnostic Procedure Only (Routine) - Closed Specialty Diagnoses / Procedures Referred By Isabell t Referred To Contact BR IMAGING Diagnoses Breast asymmetry in female Procedures US BREAST LTD LEFT US BREAST UNI REAL TIME WITH IMAGE LIMITED Arlen Cedillo APRN.CNM [address] [place] [address] [facility] [address] [employer] [place] [address] Referral ID Status Reason Start Date Expiration Date V isits Requested Visits Authorized [id number] Closed Auto-Generate d Referral 05/19/2023 06/17/2024 1 1 [facility] for visit Narrative* Diagnostic Procedure Only (Routine) - Closed Specialty Diagnoses / Procedures Referred By Isabell t Referred To Contact BR IMAGING Diagnoses Abnormal mammogram with microcalcification Procedures KEILY DIAGNOSTIC RT DIAGNOSTIC MAMMOGRAPHY COMPUTER-AIDED DETCJ [facility] Shashi Rios, MERCHANDISE CLERK.HYDROGENATION STILL OPERATOR [address] [place] [address] [facility] [address] [address] Referral ID Status Reason Start Date Expiration Date V isits Requested Visits Authorized [id number] Closed Auto-Generate d Referral 11/30/2021 06/29/2022 1 1 [facility] for visit Narrative* Diagnostic Procedure Only (Routine) - Closed Specialty Diagnoses / Procedures Referred By Isabell t Referred To Contact BR IMAGING Diagnoses Breast density Procedures KEILY SCREENING W DOROTEO SCREENING DIGITAL BREAST TOMOSYNTHESIS BI SCREENING MAMMOGRAPHY BI 2-VIEW BREAST INC Kendra Geiger, JOVITA.CNM [address] [place] [address] [facility] Imaging [address] [place] [address] Referral ID Status Reason Start Date Expiration Date V isits Requested Visits Authorized [id number] Closed Auto-Generate d Referral 03/29/2022 04/28/2023 1 1 [facility] for visit Narrative* Diagnostic Procedure Only (Routine) - Closed Specialty Diagnoses / Procedures Referred By Isabell boston Referred To Contact XR IMAGING Diagnoses Left hip pain Fever, unspecified fever cause Hip swelling, left Rash Macular erythematous rash Procedures XR HIP GENERAL 3V PELV/AP/LAT LEFT RADEX HIP UNILATERAL WITH PELVIS 2-3 VIEWS Jan George, DO [address] [place] [address] [place] [address] Referral ID Status Reason Start Date Expiration Date V isits Requested Visits Authorized [id number] Closed Auto-Generate d Referral 02/12/2023 03/13/2024 1 1 [facility] for visit Narrative* Diagnostic Procedure Only (Routine) - Closed Specialty Diagnoses / Procedures Referred By Isabell boston Referred To Contact BR IMAGING Diagnoses Encounter for screening mammogram for malignant neoplasm of breast Procedures KEILY SCREENING W DOROTEO SCREENING DIGITAL BREAST TOMOSYNTHESIS BI SCREENING MAMMOGRAPHY BI 2-VIEW BREAST INC Arlen Curtis, JOVITA.CN [address] [place] [address] [facility] Imaging [address] [place] [address] Referral ID Status Reason Start Date Expiration Date V isits Requested Visits Authorized [id number] Closed Auto-Generate d Referral 04/17/2023 05/16/2024 1 1 [facility] Summary Purpose Family History No Family History Records FoundNo Family History Records FoundNo Family History Records FoundNo Family History Records FoundNo Family History Records Found Advance Directives No Advanced Directives Records FoundDocuments on File Type Date Recorded Patient Manager Product Management Expl anation Advance Directive(s) 08/01/2015 6:14 AM Advance Directive(s) 07/24/2015 9:14 AM Advance Directive(s) 07/24/2015 1:06 PM Reason for Referral Specialty Diagnoses / Procedures Referred By Isabell boston Referred To Contact CT IMAGING Diagnoses Left hip pain Fever, unspecified fever cause Hip swelling, left Rash Macular erythematous rash Localized swelling, mass, or lump of left lower extremity Procedures CT HIP WO IVCON LEFT CT LOWER EXTREMITY W/O CONTRAST MATERIAL Jan George, DO [address] [place] [address] [place] [address] Referral ID Status Reason Start Date Expiration Date Visits Requested Visits Authorized [id number] Open Clearance Not Met - Admin/Campus Dean/ Director Advise to Postpone/Resche dule or Not Proceed Patient Cleared Patient agrees to sign AFR (INN Commercial or OON MA) 02/12/2023 03/13/2024 1 1 Specialty Diagnoses / Procedures Referred By Contac t Referred To Contact Infectious Diseases Diagnoses Lyme disease Procedures CONSULT TO INFECTIOUS DISEASES OFFICE[facility] 60-74 MINUTES Ariel Jan Amador, DO [address] [place] [address] Referral ID Status Reason Start Date Expiration Date Visits Requested Visits Authorized [id number] Authorized PCP Requested Referral 03/05/2023 03/04/2024 1 1 Specialty Diagnoses / Procedures Referred By Contac t Referred To Contact MR IMAGING Diagnoses Lyme disease Left leg numbness Lumbosacral radiculopathy at L5 Lumbosacral radiculopathy at S1 Procedures MRI LUMBAR SPINE WO/W IVCON MRI SPINAL CANAL LUMBAR W/O & [place] [address] [place] [address] [place] [address] Referral ID Status Reason Start Date Expiration Date V isits Requested Visits Authorized [id number] Closed Auto-Generate d Referral 04/28/2023 05/27/2024 1 1 Additional Source Comments INFORMATION SOURCE (unrecogn ized section and content) DATE CREATED AUTHOR 03/12/2020 [facility] DATE CREATED AUTHOR AUTHOR'S ORGANIZ ATION 05/30/2021 [facility] DATE CREATED AUTHOR AUTHOR'S ORGANIZ ATION 02/15/2023 [facility] DATE CREATED AUTHOR AUTHOR'S ORGANIZ ATION 05/20/2023 [facility] DATE CREATED AUTHOR AUTHOR'S ORGANIZ ATION 01/19/2024 [facility] Source Comments (unrecognize d section and content) In the event this informatio n is protected by the Federal Confidentiality of Alcohol and Drug Abuse Patient Records regulations: The Federal rules restrict any use of the information to criminally investigate or prosecute any alcohol or drug abuse patient.[facility] the event this information is protected by the Federal Confidentiality of Alcohol and Drug Abuse Patient Records regulations: The Federal rules restrict any use of the information to criminally investigate or prosecute any alcohol or drug abuse patient.[facility] HospitalIn the event this information is protected by the Federal Confidentiality of Alcohol and Drug Abuse Patient Records regulations: The Federal rules restrict any use of the information to criminally investigate or prosecute any alcohol or drug abuse patient.[facility] HospitalIn the event this information is protected by the Federal Confidentiality of Alcohol and Drug Abuse Patient Records regulations: The Federal rules restrict any use of the information to criminally investigate or prosecute any alcohol or drug abuse patient.[facility] HospitalIn the event this information is protected by the Federal Confidentiality of Alcohol and Drug Abuse Patient Records regulations: The Federal rules restrict any use of the information to criminally investigate or prosecute any alcohol or drug abuse patient.[facility] HospitalIn the event this information is protected by the Federal Confidentiality of Alcohol and Drug Abuse Patient Records regulations: The Federal rules restrict any use of the information to criminally investigate or prosecute any alcohol or drug abuse patient.[facility] HospitalIn the event this information is protected by the Federal Confidentiality of Alcohol and Drug Abuse Patient Records regulations: The Federal rules restrict any use of the information to criminally investigate or prosecute any alcohol or drug abuse patient.[facility] HospitalIn the event this information is protected by the Federal Confidentiality of Alcohol and Drug Abuse Patient Records regulations: The Federal rules restrict any use of the information to criminally investigate or prosecute any alcohol or drug abuse patient.[facility] HospitalIn the event this information is protected by the Federal Confidentiality of Alcohol and Drug Abuse Patient Records regulations: The Federal rules restrict any use of the information to criminally investigate or prosecute any alcohol or drug abuse patient.[facility] HospitalIn the event this information is protected by the Federal Confidentiality of Alcohol and Drug Abuse Patient Records regulations: The Federal rules restrict any use of the information to criminally investigate or prosecute any alcohol or drug abuse patient.[facility] HospitalIn the event this information is protected by the Federal Confidentiality of Alcohol and Drug Abuse Patient Records regulations: The Federal rules restrict any use of the information to criminally investigate or prosecute any alcohol or drug abuse patient.[facility] HospitalIn the event this information is protected by the Federal Confidentiality of Alcohol and Drug Abuse Patient Records regulations: The Federal rules restrict any use of the information to criminally investigate or prosecute any alcohol or drug abuse patient.[facility] HospitalIn the event this information is protected by the Federal Confidentiality of Alcohol and Drug Abuse Patient Records regulations: The Federal rules restrict any use of the information to criminally investigate or prosecute any alcohol or drug abuse patient.[facility] HospitalIn the event this information is protected by the Federal Confidentiality of Alcohol and Drug Abuse Patient Records regulations: The Federal rules restrict any use of the information to criminally investigate or prosecute any alcohol or drug abuse patient.[facility] HospitalIn the event this information is protected by the Federal Confidentiality of Alcohol and Drug Abuse Patient Records regulations: The Federal rules restrict any use of the information to criminally investigate or prosecute any alcohol or drug abuse patient.[facility] HospitalIn the event this information is protected by the Federal Confidentiality of Alcohol and Drug Abuse Patient Records regulations: The Federal rules restrict any use of the information to criminally investigate or prosecute any alcohol or drug abuse patient.[facility] HospitalIn the event this information is protected by the Federal Confidentiality of Alcohol and Drug Abuse Patient Records regulations: The Federal rules restrict any use of the information to criminally investigate or prosecute any alcohol or drug abuse patient.[facility] HospitalIn the event this information is protected by the Federal Confidentiality of Alcohol and Drug Abuse Patient Records regulations: The Federal rules restrict any use of the information to criminally investigate or prosecute any alcohol or drug abuse patient.[facility] HospitalIn the event this information is protected by the Federal Confidentiality of Alcohol and Drug Abuse Patient Records regulations: The Federal rules restrict any use of the information to criminally investigate or prosecute any alcohol or drug abuse patient.[facility] HospitalIn the event this information is protected by the Federal Confidentiality of Alcohol and Drug Abuse Patient Records regulations: The Federal rules restrict any use of the information to criminally investigate or prosecute any alcohol or drug abuse patient.[facility] HospitalIn the event this information is protected by the Federal Confidentiality of Alcohol and Drug Abuse Patient Records regulations: The Federal rules restrict any use of the information to criminally investigate or prosecute any alcohol or drug abuse patient.[facility] HospitalIn the event this information is protected by the Federal Confidentiality of Alcohol and Drug Abuse Patient Records regulations: The Federal rules restrict any use of the information to criminally investigate or prosecute any alcohol or drug abuse patient.[facility] HospitalIn the event this information is protected by the Federal Confidentiality of Alcohol and Drug Abuse Patient Records regulations: The Federal rules restrict any use of the information to criminally investigate or prosecute any alcohol or drug abuse patient.[facility] HospitalIn the event this information is protected by the Federal Confidentiality of Alcohol and Drug Abuse Patient Records regulations: The Federal rules restrict any use of the information to criminally investigate or prosecute any alcohol or drug abuse patient.[facility] HospitalIn the event this information is protected by the Federal Confidentiality of Alcohol and Drug Abuse Patient Records regulations: The Federal rules restrict any use of the information to criminally investigate or prosecute any alcohol or drug abuse patient.[facility] HospitalIn the event this information is protected by the Federal Confidentiality of Alcohol and Drug Abuse Patient Records regulations: The Federal rules restrict any use of the information to criminally investigate or prosecute any alcohol or drug abuse patient.[facility] HospitalIn the event this information is protected by the Federal Confidentiality of Alcohol and Drug Abuse Patient Records regulations: The Federal rules restrict any use of the information to criminally investigate or prosecute any alcohol or drug abuse patient.[facility] HospitalIn the event this information is protected by the Federal Confidentiality of Alcohol and Drug Abuse Patient Records regulations: The Federal rules restrict any use of the information to criminally investigate or prosecute any alcohol or drug abuse patient.[facility] HospitalIn the event this information is protected by the Federal Confidentiality of Alcohol and Drug Abuse Patient Records regulations: The Federal rules restrict any use of the information to criminally investigate or prosecute any alcohol or drug abuse patient.[facility] HospitalIn the event this information is protected by the Federal Confidentiality of Alcohol and Drug Abuse Patient Records regulations: The Federal rules restrict any use of the information to criminally investigate or prosecute any alcohol or drug abuse patient.[facility] HospitalIn the event this information is protected by the Federal Confidentiality of Alcohol and Drug Abuse Patient Records regulations: The Federal rules restrict any use of the information to criminally investigate or prosecute any alcohol or drug abuse patient.[facility] HospitalIn the event this information is protected by the Federal Confidentiality of Alcohol and Drug Abuse Patient Records regulations: The Federal rules restrict any use of the information to criminally investigate or prosecute any alcohol or drug abuse patient.[facility] HospitalIn the event this information is protected by the Federal Confidentiality of Alcohol and Drug Abuse Patient Records regulations: The Federal rules restrict any use of the information to criminally investigate or prosecute any alcohol or drug abuse patient.[facility] HospitalIn the event this information is protected by the Federal Confidentiality of Alcohol and Drug Abuse Patient Records regulations: The Federal rules restrict any use of the information to criminally investigate or prosecute any alcohol or drug abuse patient.[facility] HospitalIn the event this information is protected by the Federal Confidentiality of Alcohol and Drug Abuse Patient Records regulations: The Federal rules restrict any use of the information to criminally investigate or prosecute any alcohol or drug abuse patient.[facility] HospitalIn the event this information is protected by the Federal Confidentiality of Alcohol and Drug Abuse Patient Records regulations: The Federal rules restrict any use of the information to criminally investigate or prosecute any alcohol or drug abuse patient.[facility] HospitalIn the event this information is protected by the Federal Confidentiality of Alcohol and Drug Abuse Patient Records regulations: The Federal rules restrict any use of the information to criminally investigate or prosecute any alcohol or drug abuse patient.[facility] HospitalIn the event this information is protected by the Federal Confidentiality of Alcohol and Drug Abuse Patient Records regulations: The Federal rules restrict any use of the information to criminally investigate or prosecute any alcohol or drug abuse patient.[facility] HospitalIn the event this information is protected by the Federal Confidentiality of Alcohol and Drug Abuse Patient Records regulations: The Federal rules restrict any use of the information to criminally investigate or prosecute any alcohol or drug abuse patient.[facility] HospitalIn the event this information is protected by the Federal Confidentiality of Alcohol and Drug Abuse Patient Records regulations: The Federal rules restrict any use of the information to criminally investigate or prosecute any alcohol or drug abuse patient.[facility] HospitalIn the event this information is protected by the Federal Confidentiality of Alcohol and Drug Abuse Patient Records regulations: The Federal rules restrict any use of the information to criminally investigate or prosecute any alcohol or drug abuse patient.[facility] HospitalIn the event this information is protected by the Federal Confidentiality of Alcohol and Drug Abuse Patient Records regulations: The Federal rules restrict any use of the information to criminally investigate or prosecute any alcohol or drug abuse patient.[facility] HospitalIn the event this information is protected by the Federal Confidentiality of Alcohol and Drug Abuse Patient Records regulations: The Federal rules restrict any use of the information to criminally investigate or prosecute any alcohol or drug abuse patient.[facility] HospitalIn the event this information is protected by the Federal Confidentiality of Alcohol and Drug Abuse Patient Records regulations: The Federal rules restrict any use of the information to criminally investigate or prosecute any alcohol or drug abuse patient.[facility] HospitalIn the event this information is protected by the Federal Confidentiality of Alcohol and Drug Abuse Patient Records regulations: The Federal rules restrict any use of the information to criminally investigate or prosecute any alcohol or drug abuse patient.[facility] HospitalIn the event this information is protected by the Federal Confidentiality of Alcohol and Drug Abuse Patient Records regulations: The Federal rules restrict any use of the information to criminally investigate or prosecute any alcohol or drug abuse patient.[facility] HospitalIn the event this information is protected by the Federal Confidentiality of Alcohol and Drug Abuse Patient Records regulations: The Federal rules restrict any use of the information to criminally investigate or prosecute any alcohol or drug abuse patient.[facility] the event this information is protected by the Federal Confidentiality of Alcohol and Drug Abuse Patient Records regulations: The Federal rules restrict any use of the information to criminally investigate or prosecute any alcohol or drug abuse patient.[facility] HospitalIn the event this information is protected by the Federal Confidentiality of Alcohol and Drug Abuse Patient Records regulations: The Federal rules restrict any use of the information to criminally investigate or prosecute any alcohol or drug abuse patient.[facility] HospitalIn the event this information is protected by the Federal Confidentiality of Alcohol and Drug Abuse Patient Records regulations: The Federal rules restrict any use of the information to criminally investigate or prosecute any alcohol or drug abuse patient.[facility] HospitalIn the event this information is protected by the Federal Confidentiality of Alcohol and Drug Abuse Patient Records regulations: The Federal rules restrict any use of the information to criminally investigate or prosecute any alcohol or drug abuse patient.[facility] HospitalIn the event this information is protected by the Federal Confidentiality of Alcohol and Drug Abuse Patient Records regulations: The Federal rules restrict any use of the information to criminally investigate or prosecute any alcohol or drug abuse patient.[facility] HospitalIn the event this information is protected by the Federal Confidentiality of Alcohol and Drug Abuse Patient Records regulations: The Federal rules restrict any use of the information to criminally investigate or prosecute any alcohol or drug abuse patient.[facility] HospitalIn the event this information is protected by the Federal Confidentiality of Alcohol and Drug Abuse Patient Records regulations: The Federal rules restrict any use of the information to criminally investigate or prosecute any alcohol or drug abuse patient.[facility] HospitalIn the event this information is protected by the Federal Confidentiality of Alcohol and Drug Abuse Patient Records regulations: The Federal rules restrict any use of the information to criminally investigate or prosecute any alcohol or drug abuse patient.[facility] HospitalIn the event this information is protected by the Federal Confidentiality of Alcohol and Drug Abuse Patient Records regulations: The Federal rules restrict any use of the information to criminally investigate or prosecute any alcohol or drug abuse patient.[facility] HospitalIn the event this information is protected by the Federal Confidentiality of Alcohol and Drug Abuse Patient Records regulations: The Federal rules restrict any use of the information to criminally investigate or prosecute any alcohol or drug abuse patient.[facility] HospitalIn the event this information is protected by the Federal Confidentiality of Alcohol and Drug Abuse Patient Records regulations: The Federal rules restrict any use of the information to criminally investigate or prosecute any alcohol or drug abuse patient.[facility] HospitalIn the event this information is protected by the Federal Confidentiality of Alcohol and Drug Abuse Patient Records regulations: The Federal rules restrict any use of the information to criminally investigate or prosecute any alcohol or drug abuse patient.[facility] HospitalIn the event this information is protected by the Federal Confidentiality of Alcohol and Drug Abuse Patient Records regulations: The Federal rules restrict any use of the information to criminally investigate or prosecute any alcohol or drug abuse patient.[facility] HospitalIn the event this information is protected by the Federal Confidentiality of Alcohol and Drug Abuse Patient Records regulations: The Federal rules restrict any use of the information to criminally investigate or prosecute any alcohol or drug abuse patient.[facility] HospitalIn the event this information is protected by the Federal Confidentiality of Alcohol and Drug Abuse Patient Records regulations: The Federal rules restrict any use of the information to criminally investigate or prosecute any alcohol or drug abuse patient.[facility] HospitalIn the event this information is protected by the Federal Confidentiality of Alcohol and Drug Abuse Patient Records regulations: The Federal rules restrict any use of the information to criminally investigate or prosecute any alcohol or drug abuse patient.[facility] Reason for Visit (unrecogniz ed section and content) Reason Comments PT Discharge Specialty Diagnoses / Procedures Referred By Contbrittanie t Referred To Contact [facility] Diagnoses Lumbosacral radiculopathy at L5 Lumbosacral radiculopathy at S1 Procedures CONSULT TO PHYSICAL THERAPY PHYSICAL THERAPY EVALUATION HIGH COMPLEX [place] [address] [place] [address] [facility] [place] [address] Referral ID Status Reason Start Date Expiration Date Visits Requested Visits Authorized [id number] Authorized Auto-Generat ed Referral 03/31/2023 03/30/2024 25 25 Reason Comments Physical Therapy Reason Comments PT Progress Note Reason Onset Date Comments Refill Request 06/26/2021 Reason Onset Date Comments Refill Request 09/26/2021 Reason Comments Refill Request Reason Comments Follow Up Reason Comments Med Change Request Reason Onset Date Comments Refill Request 01/24/2022 Reason Comments Results Reason Comments F/U 6 months Reason Comments 6 Month Exam rash pain left groin area Reason Comments rash Rash on left hip ret urned after antibiotics from Dr. George Reason Comments slight rash and hip tenderness remains M ay need more atb. Reason Comments Rash Hip pain Reason Comments Xray Results Specialty Diagnoses / Procedures Referred By Contac t Referred To Contact CT [facility] Diagnoses Left hip pain Fever, unspecified fever cause Hip swelling, left Rash Macular erythematous rash Localized swelling, mass, or lump of left lower extremity Procedures CT HIP WO IVCON LEFT CT LOWER EXTREMITY W/O CONTRAST MATERIAL Jan George, DO [address] [place] [address] [place] [address] Referral ID Status Reason Start Date Expiration Date Visits Requested Visits Authorized [id number] Open Clearance Not Met - Admin/Campus Dean/ Director Advise to Postpone/Resche dule or Not Proceed Patient Cleared Patient agrees to sign AFR (INN Commercial or OON MA) 02/12/2023 03/13/2024 1 1 Reason Comments Back Pain Reason Comments Follow Up Reason Onset Date Comments Refill Request 03/12/2023 Reason Comments Infection Follow Up Specialty Diagnoses / Procedures Referred By Contac t Referred To Contact INFECTIOUS DISEASES Diagnoses follow up Procedures consult,test,treat Radha Fletcher MD [address] [place] [address] [facility] [address] [place] [address] Referral ID Status Reason Start Date Expiration Date V isits Requested Visits Authorized [id number] Pending Review 03/28/2023 06/26/2023 1 1 Reason Onset Date Comments Refill Request 05/06/2023 Reason Comments Yearly Exam With Mammogram Specialty Diagnoses / Procedures Referred By Contac t Referred To Contact [facility] Diagnoses Lyme disease Left leg numbness Lumbosacral radiculopathy at L5 Lumbosacral radiculopathy at S1 Procedures MRI LUMBAR SPINE WO/W IVCON MRI SPINAL CANAL LUMBAR W/O & [place] [address] [place] [address] [place] [address] Referral ID Status Reason Start Date Expiration Date V isits Requested Visits Authorized [id number] Closed Auto-Generate d Referral 04/28/2023 05/27/2024 1 1 Reason Comments Radiology US Specialty Diagnoses / Procedures Referred By Contac t Referred To Contact [facility] Diagnoses Breast asymmetry in female Procedures US BREAST LTD LEFT US BREAST UNI REAL TIME WITH IMAGE LIMITED Arlen Cedillo APRN.CNM [address] [place] [address] [facility] [address] [place] [address] Referral ID Status Reason Start Date Expiration Date V isits Requested Visits Authorized [id number] Closed Auto-Generate d Referral 05/19/2023 06/17/2024 1 1 Reason Comments Physical Annual Physical Reason Comments tic bite on left foot wants you look at Reason Onset Date Comments Refill Request 10/17/2023 Reason Onset Date Comments Refill Request 11/13/2023 Reason Onset Date Comments Refill Request 12/02/2023 Reason Comments Sinusitis Care Teams (unrecognized sec tion and content) Operations Administrative Assistant Relationship Specialty Start Date End Date Shashi Rios, MERCHANDISE CLERK.HYDROGENATION STILL OPERATOR [address] [place] [address] PCP - General Family Practice 09/27/20 Operations Administrative Assistant Relationship Specialty Start Date End Date Shashi Rios, MERCHANDISE CLERK.HYDROGENATION STILL OPERATOR [address] [place] [address] PCP - General Family Practice 09/27/20 Operations Administrative Assistant Relationship Specialty Start Date End Date Shashi Rios, MERCHANDISE CLERK.HYDROGENATION STILL OPERATOR [address] [place] [address] PCP - General Family Practice 09/27/20 Operations Administrative Assistant Relationship Specialty Start Date End Date Shashi Rios, MERCHANDISE CLERK.HYDROGENATION STILL OPERATOR [address] [place] [address] PCP - General Family Practice 09/27/20 Operations Administrative Assistant Relationship Specialty Start Date End Date Shashi Rios, MERCHANDISE CLERK.HYDROGENATION STILL OPERATOR [address] [place] [address] PCP - General Family Practice 09/27/20 Operations Administrative Assistant Relationship Specialty Start Date End Date Shashi Rios, MERCHANDISE CLERK.HYDROGENATION STILL OPERATOR [address] [place] [address] PCP - General Family Practice 09/27/20 Operations Administrative Assistant Relationship Specialty Start Date End Date Shashi Rios, MERCHANDISE CLERK.HYDROGENATION STILL OPERATOR [address] [place] [address] PCP - General Family Practice 09/27/20 Operations Administrative Assistant Relationship Specialty Start Date End Date Shashi Rios, MERCHANDISE CLERK.HYDROGENATION STILL OPERATOR [address] [place] [address] PCP - General Family Medicine 09/27/20 Operations Administrative Assistant Relationship Specialty Start Date End Date Shashi Rios, MERCHANDISE CLERK.HYDROGENATION STILL OPERATOR [address] [place] [address] PCP - General Family Medicine 09/27/20 Operations Administrative Assistant Relationship Specialty Start Date End Date Shashi Rios, MERCHANDISE CLERK.HYDROGENATION STILL OPERATOR [address] [place] [address] PCP - General Family Medicine 09/27/20 Operations Administrative Assistant Relationship Specialty Start Date End Date Shashi Rios, MERCHANDISE CLERK.HYDROGENATION STILL OPERATOR [address] [place] [address] PCP - General Family Medicine 09/27/20 Operations Administrative Assistant Relationship Specialty Start Date End Date Shashi Rios, MERCHANDISE CLERK.HYDROGENATION STILL OPERATOR [address] [place] [address] PCP - General Family Medicine 09/27/20 Operations Administrative Assistant Relationship Specialty Start Date End Date Jan George DO [address] [place] [address] PCP - General Family Medicine 11/30/22 Operations Administrative Assistant Relationship Specialty Start Date End Date Jan George DO [address] [place] [address] PCP - General Family Medicine 11/30/22 Operations Administrative Assistant Relationship Specialty Start Date End Date Jan George DO [address] [place] [address] PCP - General Family Medicine 11/30/22 Operations Administrative Assistant Relationship Specialty Start Date End Date Jan George DO [address] [place] [address] PCP - General Family Medicine 11/30/22 Operations Administrative Assistant Relationship Specialty Start Date End Date Jan George DO [address] [place] [address] PCP - General Family Medicine 11/30/22 Operations Administrative Assistant Relationship Specialty Start Date End Date Shashi Rios, MERCHANDISE CLERK.HYDROGENATION STILL OPERATOR [address] [facility] [place] [address] PCP - General Family Medicine 09/27/20 11/29/22 Operations Administrative Assistant Relationship Specialty Start Date End Date Shashi Rios, MERCHANDISE CLERK.HYDROGENATION STILL OPERATOR [address] [place] [address] PCP - General Family Medicine 09/27/20 11/29/22 Operations Administrative Assistant Relationship Specialty Start Date End Date Jan George DO [address] [place] [address] PCP - General Family Medicine 11/30/22 Operations Administrative Assistant Relationship Specialty Start Date End Date Jan George DO [address] [place] [address] PCP - General Family Medicine 11/30/22 Operations Administrative Assistant Relationship Specialty Start Date End Date Jan George DO [address] [facility] [place] [address] PCP - General Family Medicine 11/30/22 Operations Administrative Assistant Relationship Specialty Start Date End Date Jan George DO [address] [facility] [place] [address] PCP - General Family Medicine 11/30/22 Operations Administrative Assistant Relationship Specialty Start Date End Date Jan George, [address] [facility] [place] [address] PCP - General Family Medicine 11/30/22 Operations Administrative Assistant Relationship Specialty Start Date End Date Jan George DO [address] [facility] [place] [address] PCP - General Family Medicine 11/30/22 Operations Administrative Assistant Relationship Specialty Start Date End Date Jan George DO [address] [facility] [place] [address] PCP - General Family Medicine 11/30/22 Operations Administrative Assistant Relationship Specialty Start Date End Date Jan George DO [address] [facility] [place] [address] PCP - General Family Medicine 11/30/22 Operations Administrative Assistant Relationship Specialty Start Date End Date Jan George DO [address] [facility] [place] [address] PCP - General Family Medicine 11/30/22 Operations Administrative Assistant Relationship Specialty Start Date End Date Jan George DO [address] [facility] [place] [address] PCP - General Family Medicine 11/30/22 Operations Administrative Assistant Relationship Specialty Start Date End Date Jan George, [address] [facility] [place] [address] PCP - General Family Medicine 11/30/22 Operations Administrative Assistant Relationship Specialty Start Date End Date Jan George, [address] [facility] [place] [address] PCP - General Family Medicine 11/30/22 Operations Administrative Assistant Relationship Specialty Start Date End Date Jan George, [address] [place] [address] PCP - General Family Medicine 11/30/22 Operations Administrative Assistant Relationship Specialty Start Date End Date Jan George DO [address] [place] [address] PCP - General Family Medicine 11/30/22 Operations Administrative Assistant Relationship Specialty Start Date End Date Jan George, [address] [place] [address] PCP - General Family Medicine 11/30/22 Operations Administrative Assistant Relationship Specialty Start Date End Date Jan George, [address] [place] [address] PCP - General Family Medicine 11/30/22 Operations Administrative Assistant Relationship Specialty Start Date End Date Jan George, [address] [facility] [place] [address] PCP - General Family Medicine 11/30/22 Operations Administrative Assistant Relationship Specialty Start Date End Date Jan George, [address] [place] [address] PCP - General Family Medicine 11/30/22 Operations Administrative Assistant Relationship Specialty Start Date End Date Jan George DO [address] [place] [address] PCP - General Family Medicine 11/30/22 Operations Administrative Assistant Relationship Specialty Start Date End Date Jan George DO [address] [place] [address] PCP - General Family Medicine 11/30/22 Operations Administrative Assistant Relationship Specialty Start Date End Date Jan George DO [address] [place] [address] PCP - General Family Medicine 11/30/22 Operations Administrative Assistant Relationship Specialty Start Date End Date Jan George DO [address] [place] [address] PCP - General Family Medicine 11/30/22 Operations Administrative Assistant Relationship Specialty Start Date End Date Jan George DO [address] [place] [address] PCP - General Family Medicine 11/30/22 Operations Administrative Assistant Relationship Specialty Start Date End Date Jan George DO [address] [place] [address] PCP - General Family Medicine 11/30/22 Operations Administrative Assistant Relationship Specialty Start Date End Date Jan George DO [address] [place] [address] PCP - General Family Medicine 11/30/22 FOR RECORDS PERTAINING TO PATIENTS WHO ARE OR HAVE BEEN ENROLLED IN A CHEMICAL DEPENDENCY/SUBSTANCEABUSE PROGRAM, SOME INFORMATION MAY BE OMITTED. This clinical summary was aggregated from multiple sources. Caution should be exercised in using it in the provision of clinical care. This summary normalizes information from multiple sources, and as a consequence, information in this document may materially change the coding, format and clinical context of patient data. In addition, data may be omitted in some cases. CLINICAL DECISIONS SHOULD BE BASED ON THE PRIMARY CLINICAL RECORDS. [employer] [facility]. provides no warranty or guarantee of the accuracy or completeness of information in this document.
[2024-01-26 10:35] LABS: Absolute Lymphocyte Count 1.69 X10^3/uL (0.83-4.51); Absolute Neutrophil Count 3.6 X10^3/uL (2.0-7.7); Basophil# 0.02 X10^3/uL; Basophil% 0.3 % (0-1); Eosinophil# 0.17 X10^3/uL; Eosinophils% 2.8 % (0-5); Hematocrit 42.1 % (37-47); Hemoglobin 14.6 g/dL (12.0-15.0); Lymphocyte # 1.69 X10^3/ul (0.83-4.51); Lymphocyte % 27.9 % (19-41); Mean Corp Hgb Conc 34.7 g/dL (32-36); Mean Platelet Vol. 9.6 fl (6.2-12.0); Monocyte# 0.51 X10^3/uL; Monocyte% 8.4 % (0-10); NRBC Flagged by Analyzer 0 % (0-5); Neutrophil # 3.63 X10^3/uL (2.7-7.7); Neutrophil % 60.1 % (47-70); Platelet Count 333 K/mm3 (150-450); RBC Distribution Width CV 11.2 % (11.6-14.6); RBC Distribution Width SD 40.8 fl (35.1-43.9); Red Blood Count 4.17 M/mm3 (4.2-5.4); White Blood Count 6.1 K/mm3 (4.4-11.0)
[2024-01-26 10:47] LABS: ALB/GLOB Ratio 1.3 RATIO (0.9-2.4); AST(SGOT) 23 U/L (15-37); Alanine Aminotransfer ALT/SGPT 25 U/L (13-56); Alkaline Phosphatase 76 U/L (45-117); Anion Gap 8 (5-15); BUN 9 mg/dL (7-18); BUN/Creat Ratio 12.3 RATIO (10-20); Chloride 105 mmol/L (98-107); Creatinine, Serum 0.73 mg/dL (0.55-1.02); EST Glomerular Filtration Rate 89 mL/min (>60); Est Glom Filt Rate - Afr Amer 107 mL/min (>60); Globulin 3.1 g/dL (2.2-4.2); Glucose 67 mg/dL (74-106); Potassium 3.9 mmol/L (3.5-5.1); Protein, Total 7.1 g/dL (6.4-8.2); Sodium Level 140 mmol/L (136-145)
== END | disposition home or self-care (01) ==
LOC: MTLAB 07:17
PROVIDERS: PCP Student in an Organized Health Care Education/Training Program; Referring Provider Internal Medicine Rheumatology; Visit Provider Internal Medicine Rheumatology
DX: M05.79 Rheumatoid arthritis with rheumatoid factor of multiple sites without organ or systems involvement (principal); Z79.899 Other long term (current) drug therapy; M18.11 Unilateral primary osteoarthritis of first carpometacarpal joint, right hand
CPT/HCPCS: 36415; 80053; 85025

== ENCOUNTER → 2024-04-19 | Outpatient (CLI) | payer OTHER, SELFPAY ==
[2024-04-19 17:23] LABS: Absolute Lymphocyte Count 1.46 X10^3/uL (0.83-4.51); Absolute Neutrophil Count 2.4 X10^3/uL (2.0-7.7); Basophil# 0.02 X10^3/uL; Basophil% 0.5 % (0-1); Eosinophil# 0.03 X10^3/uL; Eosinophils% 0.7 % (0-5); Hematocrit 45.2 % (37-47); Hemoglobin 15.2 g/dL (12.0-15.0); Lymphocyte # 1.46 X10^3/ul (0.83-4.51); Lymphocyte % 33.7 % (19-41); Mean Corp Hgb Conc 33.6 g/dL (32-36); Mean Corpuscular Hgb 34.2 pg (27.0-32.0); Mean Corpuscular Volume 101.6 fL (81-99); Mean Platelet Vol. 9.2 fl (6.2-12.0); Monocyte# 0.45 X10^3/uL; Monocyte% 10.4 % (0-10); NRBC Flagged by Analyzer 0 % (0-5); Neutrophil # 2.36 X10^3/uL (2.7-7.7); Neutrophil % 54.5 % (47-70); Platelet Count 222 K/mm3 (150-450); RBC Distribution Width CV 12.4 % (11.6-14.6); RBC Distribution Width SD 46.4 fl (35.1-43.9); Red Blood Count 4.45 M/mm3 (4.2-5.4); White Blood Count 4.3 K/mm3 (4.4-11.0)
[2024-04-19 17:39] LABS: ALB/GLOB Ratio 1.3 RATIO (0.9-2.4); AST(SGOT) 24 U/L (15-37); Alanine Aminotransfer ALT/SGPT 35 U/L (13-56); Albumin, Serum 4.3 g/dL (3.2-5.0); Alkaline Phosphatase 97 U/L (45-117); Anion Gap 5 (5-15); BUN 8 mg/dL (7-18); BUN/Creat Ratio 12.2 RATIO (10-20); Calcium,Total 9.8 mg/dL (8.5-10.1); Chloride 106 mmol/L (98-107); Creatinine, Serum 0.66 mg/dL (0.55-1.02); EST Glomerular Filtration Rate 100 mL/min (>60); Est Glom Filt Rate - Afr Amer 122 mL/min (>60); Globulin 3.4 g/dL (2.2-4.2); Glucose 96 mg/dL (74-106); Potassium 4.2 mmol/L (3.5-5.1); Protein, Total 7.7 g/dL (6.4-8.2); Sodium Level 140 mmol/L (136-145)
== END | disposition home or self-care (01) ==
LOC: MTLAB 15:13
PROVIDERS: PCP Student in an Organized Health Care Education/Training Program; Referring Provider Internal Medicine Rheumatology; Visit Provider Internal Medicine Rheumatology
DX: M05.79 Rheumatoid arthritis with rheumatoid factor of multiple sites without organ or systems involvement (principal); Z79.899 Other long term (current) drug therapy; M35.00 Sjogren syndrome, unspecified
CPT/HCPCS: 36415; 80053; 85025

== ENCOUNTER → 2024-04-28 | Outpatient (CLI) | payer OTHER, SELFPAY ==
[2024-05-01 04:07] LABS: QNTFERON TB Mitogen Value > 10.00 IU/mL (.); QNTFERON TB Nil Value 0.01 IU/mL (.); QNTFERON TB1+ Ag Value 0.01 IU/mL (.); QNTFERON TB2+ Ag Value 0.01 IU/mL (.); QNTIFERON TB Positive Criteria Negative (Negative)
== END | disposition home or self-care (01) ==
LOC: MTLAB 08:15
PROVIDERS: PCP Student in an Organized Health Care Education/Training Program; Referring Provider Internal Medicine Rheumatology; Visit Provider Internal Medicine Rheumatology
DX: M05.79 Rheumatoid arthritis with rheumatoid factor of multiple sites without organ or systems involvement (principal); Z79.899 Other long term (current) drug therapy
CPT/HCPCS: 36415; 86480

== ENCOUNTER → 2024-07-12 | Outpatient (CLI) | payer OTHER, SELFPAY ==
[2024-07-12 11:28] LABS: Absolute Lymphocyte Count 1.35 X10^3/uL (0.83-4.51); Absolute Neutrophil Count 3.2 X10^3/uL (2.0-7.7); Basophil# 0.03 X10^3/uL; Basophil% 0.6 % (0-1); Eosinophil# 0.07 X10^3/uL; Eosinophils% 1.4 % (0-5); Hematocrit 41.1 % (37-47); Hemoglobin 14.1 g/dL (12.0-15.0); Lymphocyte # 1.35 X10^3/ul (0.83-4.51); Lymphocyte % 26.3 % (19-41); Mean Corp Hgb Conc 34.3 g/dL (32-36); Mean Corpuscular Hgb 35.1 pg (27.0-32.0); Mean Corpuscular Volume 102.2 fL (81-99); Mean Platelet Vol. 9.8 fl (6.2-12.0); Monocyte# 0.46 X10^3/uL; NRBC Flagged by Analyzer 0 % (0-5); Neutrophil % 62.3 % (47-70); Platelet Count 215 K/mm3 (150-450); RBC Distribution Width CV 11.8 % (11.6-14.6); RBC Distribution Width SD 44.5 fl (35.1-43.9); Red Blood Count 4.02 M/mm3 (4.2-5.4); White Blood Count 5.1 K/mm3 (4.4-11.0)
[2024-07-12 12:29] LABS: AST(SGOT) 31 U/L (<=31); Alanine Aminotransfer ALT/SGPT 23 U/L (<=34); Albumin, Serum 4.3 g/dL (3.5-5.0); Alkaline Phosphatase 77 U/L (35-104); Anion Gap 11 (5-15); BUN 7 mg/dL (4-19); BUN/Creat Ratio 10.7 RATIO (10-20); Calcium,Total 9.5 mg/dL (7.6-11.0); Carbon Dioxide 22.9 mmol/L (21.0-32.0); Chloride 106 mmol/L (98-108); Creatinine, Serum 0.67 mg/dL (0.70-1.20); EST Glomerular Filtration Rate 105 (>60); Globulin 2.1 g/dL (2.2-4.2); Glucose 74 mg/dL (70-99); Potassium 3.9 mmol/L (3.3-5.1); Protein, Total 6.5 g/dL (5.9-8.4); Sodium Level 140 mmol/L (133-145)
== END | disposition home or self-care (01) ==
LOC: MTLAB 07:23
PROVIDERS: PCP Student in an Organized Health Care Education/Training Program; Referring Provider Internal Medicine Rheumatology; Visit Provider Internal Medicine Rheumatology
DX: M05.79 Rheumatoid arthritis with rheumatoid factor of multiple sites without organ or systems involvement (principal); Z79.899 Other long term (current) drug therapy
CPT/HCPCS: 36415; 80053; 85025

== ENCOUNTER 2024-10-04 08:24 | Inpatient (IN) | payer OTHER, SELFPAY ==
[2024-10-04] VITALS (13 sets, daily range): BP systolic 112–148; BP diastolic 67–94; PULSE 79–90; RESP 14–28; TEMP 36.6–37; O2SAT 95–100; BMI 25.0; BMI 23.4
--- NOTE | 2024-10-04 08:49 | EKG12_ITS ---
Test Reason : CHEST DISCOMFORT Blood Pressure : */* mmHG Vent. Rate : 84 BPM Atrial Rate : 84 BPM P-R Int : 120 ms QRS Dur : 86 ms QT Int : 350 ms P-R-T Axes : 49 15 -4 degrees QTcB Int : 413 ms Normal sinus rhythm Normal ECG Confirmed by NIDHI GIBBS MD ([id number]), food expeditor MAILE LEMUS ([id number]) on 10/05/2024 8:22:13 AM Referred By: CARLOS Confirmed By: NIDHI GIBBS MD
--- NOTE | 2024-10-04 08:49 | CT_ITS ---
PROCEDURE: CTA chest 10/04/2024 REASON FOR EXAM: Pneumonia versus PE. Shortness of breath. Evaluate for pulmonary embolism or pneumonia TECHNIQUE: CTA CHEST W/WO CONTRAST Multiplanar Sagittal and Coronal images were obtained. CONTRAST: Isovue 370 VOLUME: 100 mL One or more dose reduction techniques were used (e.g., Automated exposure control, adjustment of the mA and/or kV according to patient size, use of iterative reconstruction technique). RADIATION DOSE SUMMARY: CTDlvol: 11.39 and 6.34 mGy DLP: 191.67 mGycm COMPARISON: None. FINDINGS: Thoracic Aorta: Normal caliber and appearance. Normal Heart: Normal size Pulmonary Vessels: No pulmonary embolism. Hardware: None. Lymph nodes: No pathologically enlarged lymph nodes of the mediastinum or sabrina Lungs and Airways: Urge of consolidation several segments of right lower lobe. Much smaller consolidating airspace disease in left lower lobe Pleura: Small right pleural effusion. Upper Abdomen: Mild splenomegaly. Otherwise unremarkable. Bones: No aggressive bone lesions. CT/CTA Chest W/WO Contrast IMPRESSION: Large right consolidating pneumonia with less smaller left base pneumonia. No PE Reading [facility]
--- NOTE | 2024-10-04 08:56 | EDS_ITS ---
HPI History of Present Illness Chief Complaint: Shortness of Breath Narrative Narrative: Chief complaint and HPI: Shortness of breath and right-sided chest pain. 54-year-old female with rheumatoid arthritis, Sjogren's disease on methotrexate,Skyrizi, Plaquenil, Hyrimoz presents for evaluation of shortness of breath and right-sided chest pain. Patient states at the end of the month she had a Reclast infusion at [facility] and since then has developed a dry cough. She states on Friday she woke up with shortness of breath and right- sided chest pain. Right-sided chest pain is described as sharp. Worse when she takes a deep breath then. She states on Friday she saw her director clinical applications who is concern for pleurisy. She states that she started to take 10 mg of prednisone daily x 5 days. She is currently off of it. She states since that time her shortness of breath has worsened. She continues to have a dry cough. She denies any fever, chills, abdominal pain, nausea, vomiting. States she has been eating and drinking well. She denies any recent surgery or travel. Denies any bilateral lower extremity swelling or pain. Review of systems: See HPI Medications: As listed on the chart Allergies: As listed on the chart PFSH: Per chart Vital signs: As listed on the chart. Reviewed. Physical exam: Gen: A&O x3, NAD Head: Normocephalic, atraumatic Eyes: No sclera icterus, conjunctiva clear ENT: Moist mucous membranes Neck: Trachea midline, No JVD CV: RRR, no murmurs, no peripheral edema Resp: Lungs CTA BL, no w/r/c, dyspnea when speaking GI: Abd soft, non-distended, non-tender, no r/r/g Musc: Full ROM, no deformity Skin: Warm, dry Neuro: Alert, oriented, grossly intact, sensation intact Psych: Cooperative, appropriate mood and affect [facility] Medical History (Updated 10/04/24 @ 18:[address] Sarbjit Tolbert, DO) Hypothyroidism Rheumatoid arthritis History of Sjogren's disease Home Medications ?Medication ?Instructions ?Recorded ?Last Taken ?Type acetaminophen 650 mg 650 mg PO Q12H 02/27/23 Unkn own History tablet,extended release (Tylenol Arthritis Pain) calcium 600 mg (as carbonate)-vit See Rx Instructions PO DAILY 02/27/23 10/04/24 10:00 History D3 5 mcg (200 unit)-minerals tablet supplement cyanocobalamin (vitamin B-12) 500 500 mcg PO DAILY Unknown History mcg tablet esomeprazole magnesium 40 mg 40 mg PO DAILY 02/27/23 U nknown History capsule,delayed release estradiol 10 mcg vaginal insert 10 mcg vaginal 2XW Unknown History (Imvexxy Maintenance Pack) folic acid 1 mg tablet 2 mg PO DAILY 02/27/23 Unkno wn History levothyroxine 100 mcg tablet 100 mcg PO DAILY thyroid 02/27/23 10/04/24 06:00 History (Levoxyl) 100 mcg liothyronine 5 mcg tablet 15 mcg PO .COMPLEX thyroid 1 04/29/22 10/03/24 14:00 History 15 mcg lysine 500 mg tablet (L-Lysine) 500 mg PO DAILY supple ment 02/27/23 10/04/24 10:00 History montelukast 10 mg tablet 10 mg PO QHS asthma/copd 10/03/24 22:00 History multivitamin 1 tab PO DAILY supplement 10/04/24 10:51 History tramadol 50 mg tablet 50 mg PO DAILY PRN pain 01/31 Unknown History adalimumab-adaz 40 mg/0.4 mL 40 mg subcut Q14D injecti on 10/04/24 09/24/24 History subcutaneous pen injector (Hyrimoz(CF) Pen) adalimumab-adaz 40 mg/0.8 mL 40 mg subcut QWEEK Unknown History subcutaneous pen injector (Hyrimoz Pen) hydroxychloroquine 200 mg tablet 200 mg PO BID supplem ent 10/04/24 10/04/24 10:00 History (Plaquenil) liothyronine 5 mcg tablet (Cytomel) 20 mcg PO .MWF thy roid 10/04/24 10/03/24 History methotrexate sodium 2.5 mg tablet 17.5 mg PO QWEEK imm unosuppresent 10/04/24 09/28/24 10:00 History progesterone micronized 100 mg 100 mg PO QHS supplemen t 10/04/24 10/03/24 22:00 History capsule Allergy/AdvReac Type Severity Reaction Status Date / Time guaifenesin Allergy Swelling Verified 10/04/24 08:30 Sulfa (Sulfonamide Allergy Swelling Verified 10/04/24 08:30 Antibiotics) azithromycin AdvReac Nausea/Vom/ Verified 10/04/24 08:30 Diarrhea erythromycin base AdvReac Nausea/Vom/ Verified 10/04/24 08:30 Diarrhea Family History (Updated 02/27/23 @ 09:55 by Kendra Olmos) Father Myocardial infarction Mother Multiple myeloma Surgical History (Updated 02/27/23 @ 09:35 by Kendra Olmos) History of wisdom tooth extraction History of knee surgery History of cholecystectomy History of endometrial ablation Social History (Updated 02/27/23 @ 09:55 by Kendra Olmos) Smoking Status: Never smoker alcohol intake: never what type of physical activity do you participate in: walking do you feel safe at home: Yes EXAM Physical Exam Const Vital Signs: 10/04/24 08:24 10/04/24 08:28 10/04/24 08:35 Temperature 98.6 F Temperature Source Oral Pulse Rate 88 79 Respiratory Rate 20 H 23 H Respiratory Effort Short of Breath Labored Respiratory Pattern Tachypnea Blood Pressure 148/93 H 142/87 H Blood Pressure Mean 111 105 Pulse Ox 96 100 Oxygen Delivery Method Room Air Room Air Room Air 10/04/24 09:15 10/04/24 09:28 10/04/24 10:28 Temperature 97.9 F Temperature Source Oral Pulse Rate 81 89 84 Respiratory Rate 20 H 28 H 24 H Respiratory Effort Respiratory Pattern Blood Pressure 128/93 H 121/78 H Blood Pressure Mean 104 92 Pulse Ox 98 96 Oxygen Delivery Method Room Air Room Air 10/04/24 12:00 Temperature Temperature Source Pulse Rate 85 Respiratory Rate Respiratory Effort Respiratory Pattern Blood Pressure 138/94 H Blood Pressure Mean 108 Pulse Ox Oxygen Delivery Method MDM MDM MDM Narrative Medical decision making narrative: 54-year-old female with rheumatoid arthritis, Sjogren's disease on methotrexate, Skyrizi, Plaquenil, Hyrimoz presents for evaluation of shortness of breath and right-sided chest pain. Patient states at the end of the month she had a Reclast infusion at [facility] and since then has developed a dry cough. She states on Friday she woke up with shortness of breath and right- sided chest pain. Right-sided chest pain is described as sharp. Worse when she takes a deep breath. Shortness of breath has been worsening. She did see a director clinical applications who was concern for pleurisy or rheumatoid flare. States that she took 10 mg of prednisone daily x 5 days. On presentation, patient is no acute distress. However she is dyspneic when speaking and mildly tachypneic, she is not hypoxic on room air. Differential diagnosis includes but is not limited to viral illness, pneumonia, PE, rheumatoid all flare, thyroid disease. DuoNeb, Zofran, morphine ordered for symptoms. Laboratory workup ordered including CTA chest. CBC without leukocytosis or anemia. Platelets unremarkable. BMP shows hyponatremia of 128 without MELL. Troponin unremarkable. BNP unremarkable. TSH is low however free T4 is normal. CT of the chest shows large right consolidating pneumonia with left smaller left base pneumonia. No PE. Patient will warrant admission with IV antibiotics. Will give vancomycin and Zosyn to cover broadly given her immunosuppression. Patient was updated of all the results and confirmed understanding the plan. I spoke with the hospitalist service who accepted admission. EKG: Interpreted by me/EM physician: EKG shows normal sinus rhythm without any acute ischemic changes. Heart rate 84. Impression 1. Bilateral pneumonia, right greater than left 2. History of rheumatoid arthritis on multiple immunosuppression's 3. Hyponatremia Lab Data Labs: Laboratory Results - last 24 hr 10/04/24 09:28 WBC 7.5 RBC 3.90 L Hgb 13.1 Hct 38.1 MCV 97.7 MCH 33.6 H MCHC 34.4 RDW Std Deviation 45.7 H RDW Coeff of Kizzy 12.7 Plt Count 264 MPV 8.8 Immature Gran % (Auto) 0.500 Neut % (Auto) 78.7 H Lymph % (Auto) 10.1 L [place] % (Auto) 10.3 H Eos % (Auto) 0.3 Baso % (Auto) 0.1 Absolute Neuts (auto) 5.9 Absolute Lymphs (auto) 0.76 L Nucleated RBC % 0 Sodium 128 L Potassium 4.3 Chloride 97 L Carbon Dioxide 16.1 L Anion Gap 15 BUN 5 Creatinine 0.53 L Estim Creat Clear Calc 110.57 Est GFR (MDRD) Non-Af 110 BUN/Creatinine Ratio 10.1 Glucose 98 Calcium 8.3 Troponin T High Sens < 6 NT pro BNP II 184 TSH 0.149 L Free T4 1.20 Radiography Diagnostic Testing: Clinical Impression(s) from Imaging Studies Chest CTA 10/04/24 08:49 IMPRESSION: Large right consolidating pneumonia with less smaller left base pneumonia. No PE [facility] Discharge Plan Disposition Disposition: Acute Care Hospital [facility] Discharge Date/Time: 10/04/24 13:16
[2024-10-04 09:34] LABS: Hematocrit 38.1 % (37-47); Hemoglobin 13.1 g/dL (12.0-15.0); Immature Granulocytes Count 0.040 X10^3/uL (0.0-0.0); Mean Corp Hgb Conc 34.4 g/dL (32-36); Mean Corpuscular Volume 97.7 fL (81-99); Mean Platelet Vol. 8.8 fl (6.2-12.0); NRBC Flagged by Analyzer 0 % (0-5); Platelet Count 264 K/mm3 (150-450); RBC Distribution Width CV 12.7 % (11.6-14.6); RBC Distribution Width SD 45.7 fl (35.1-43.9); Red Blood Count 3.90 M/mm3 (4.2-5.4); White Blood Count 7.5 K/mm3 (4.4-11.0)
[2024-10-04] MEDS: 0.9% Normal Saline (500mL Bag) 500 ML 999 ML IV (09:35)
[2024-10-04 11:01] LABS: Pro- Brain NATRIURETIC PEPTIDE 184 pg/mL (<=900); Troponin T High Sensitivity < 6 ng/L (<=14)
[2024-10-04 11:17] LABS: Anion Gap 15 (5-15); BUN 5 mg/dL (4-19); BUN/Creat Ratio 10.1 RATIO (10-20); Calcium,Total 8.3 mg/dL (7.6-11.0); Carbon Dioxide 16.1 mmol/L (21.0-32.0); Chloride 97 mmol/L (98-108); Estimated Creatinine Clearance 110.57 ml/min (50-250); Glucose 98 mg/dL (70-99); Potassium 4.3 mmol/L (3.3-5.1)
[2024-10-04] MEDS: Vancomycin HCl 1,500 MG in 0.9% Normal Saline (500mL Bag) 500 ML 250 MG IV (12:45)
[2024-10-04] MEDS: Piperacil/Tazobactam 4.5 GM in 0.9% Normal Saline (100mL MB+) 100 ML IV (15:14)
[2024-10-04] MEDS: 0.9% Saline Lock 10 ML Syringe IV (15:15)
[2024-10-04] MEDS: 0.9% Normal Saline (250mL Bag) 250 ML 15 ML IV (15:15)
[2024-10-04] MEDS: Calcium Carb/Vitamin D 1 TABLET Tablet PO (17:05)
--- NOTE | 2024-10-04 18:35 | HP.PCM.HOS_ITS ---
HPI - General General Date of Admission: 10/04/24 Date of Service: 10/04/24 Chief Complaint: Shortness of breath x 1 week HPI Narrative JOANN MASTERSON, is a 54 F who presents to the emergency room at [facility] with complaints of shortness of breath x 1 week along with right-sided chest pain. She saw her front end software engineer last week and the front end software engineer set her up for a chest x-ray to be done this Friday and also performed an EKG on the patient. Patient complains of a cough which is dry in nature, she denies any chills or fever. The right-sided chest pain is described as sharp and worse when she takes in a deep breath. Patient began taking prednisone 10 mg daily for 5 days but finished it and still had chest discomfort. She has a history of rheumatoid arthritis and Sjogren's disease. Workup in the emergency room showed the patient have a normal white blood cell count, patient was afebrile and her pulse ox was above 90% on room air at rest. Chemistry profile was remarkable for sodium of 128 and a chloride of 97. Patient had a CTA of the chest performed which showed no evidence of pulmonary embolism, large right consolidating pneumonia with left smaller left basilar pneumonia. Patient was given IV Zosyn and vancomycin and it was decided that she would be admitted for inpatient treatment of bilateral pneumonia. Patient will be admitted to [place] [id number] and be seen in consultation by pulmonary medicine. [facility] Medical History (Updated 10/04/24 @ 18:[address] Sarbjit Tolbert, DO) Hypothyroidism Rheumatoid arthritis History of Sjogren's disease Home Medications ?Medication ?Instructions ?Recorded ?Last Taken ?Type acetaminophen 650 mg 650 mg PO Q12H 02/27/23 Unkn own History tablet,extended release (Tylenol Arthritis Pain) calcium 600 mg (as carbonate)-vit See Rx Instructions PO DAILY 02/27/23 10/04/24 10:00 History D3 5 mcg (200 unit)-minerals tablet supplement cyanocobalamin (vitamin B-12) 500 500 mcg PO DAILY Unknown History mcg tablet esomeprazole magnesium 40 mg 40 mg PO DAILY 02/27/23 U nknown History capsule,delayed release estradiol 10 mcg vaginal insert 10 mcg vaginal 2XW Unknown History (Imvexxy Maintenance Pack) folic acid 1 mg tablet 2 mg PO DAILY 02/27/23 Unkno wn History levothyroxine 100 mcg tablet 100 mcg PO DAILY thyroid 02/27/23 10/04/24 06:00 History (Levoxyl) 100 mcg liothyronine 5 mcg tablet 15 mcg PO .COMPLEX thyroid 1 04/29/22 10/03/24 14:00 History 15 mcg lysine 500 mg tablet (L-Lysine) 500 mg PO DAILY supple ment 02/27/23 10/04/24 10:00 History montelukast 10 mg tablet 10 mg PO QHS asthma/copd 10/03/24 22:00 History multivitamin 1 tab PO DAILY supplement 10/04/24 10:51 History tramadol 50 mg tablet 50 mg PO DAILY PRN pain 01/31 Unknown History adalimumab-adaz 40 mg/0.4 mL 40 mg subcut Q14D injecti on 10/04/24 09/24/24 History subcutaneous pen injector (Hyrimoz(CF) Pen) adalimumab-adaz 40 mg/0.8 mL 40 mg subcut QWEEK Unknown History subcutaneous pen injector (Hyrimoz Pen) hydroxychloroquine 200 mg tablet 200 mg PO BID supplem ent 10/04/24 10/04/24 10:00 History (Plaquenil) liothyronine 5 mcg tablet (Cytomel) 20 mcg PO .MWF thy roid 10/04/24 10/03/24 History methotrexate sodium 2.5 mg tablet 17.5 mg PO QWEEK imm unosuppresent 10/04/24 09/28/24 10:00 History progesterone micronized 100 mg 100 mg PO QHS supplemen t 10/04/24 10/03/24 22:00 History capsule Allergy/AdvReac Type Severity Reaction Status Date / Time guaifenesin Allergy Swelling Verified 10/04/24 08:30 Sulfa (Sulfonamide Allergy Swelling Verified 10/04/24 08:30 Antibiotics) azithromycin AdvReac Nausea/Vom/ Verified 10/04/24 08:30 Diarrhea erythromycin base AdvReac Nausea/Vom/ Verified 10/04/24 08:30 Diarrhea Family History (Updated 02/27/23 @ 09:55 by Kendra Olmos) Father Myocardial infarction Mother Multiple myeloma Surgical History (Updated 02/27/23 @ 09:35 by Kendra Olmos) History of wisdom tooth extraction History of knee surgery History of cholecystectomy History of endometrial ablation Social History (Updated 02/27/23 @ 09:55 by Kendra Olmos) Smoking Status: Never smoker alcohol intake: never what type of physical activity do you participate in: walking do you feel safe at home: Yes ROS Constitutional Constitutional: Reports fatigue; Denies anorexia, change in weight, chills, fever(s), night sweats or weakness Eyes Eyes: Denies blurry vision, change in vision, discharge from eye(s) or eye pain Cardiovascular Cardiovascular: Reports dyspnea on exertion; Denies chest pain, claudication, edema or palpitations Respiratory/Chest Respiratory/Chest: Reports dyspnea; Denies cough, hemoptysis, shortness of breath at rest or shortness of breath with exertion Gastrointestinal Gastrointestinal: Denies abdominal pain, constipation, diarrhea, hematemesis, hematochezia, melena, nausea or vomiting Genitourinary Genitourinary: Denies dysuria, hematuria, urinary frequency, urinary hesitancy, urinary incontinence or urinary urgency Musculoskeletal Musculoskeletal: Denies back pain, joint pain, joint stiffness, joint swelling, myalgias or neck pain Neurologic Neurologic: Denies abnormal gait, abnormal speech, dizziness, focal weakness, headache(s), loss of vision, numbness, other visual disturbances, paresthesias, syncope or tingling Psychiatric Psychiatric: Denies anxiety, cognitive impairment, depression, irritability, mood swings or suicidal ideation Endocrine Endocrinology: Denies change in body appearance, cold intolerance, excessive sweating, heat intolerance, polydipsia or polyuria Hematologic/Lymphatic Hematologic/Lymphatic: Denies none, anemia, easy bleeding, easy bruising or lymphadenopathy Allergic/Immunologic Allergic/Immunologic: Denies rhinitis, urticaria, eczemia or asthma Vital Signs Vital Signs Vital Signs: 10/04/24 08:24 10/04/24 08:28 10/04/24 08:35 Temperature 98.6 F Temperature Source Oral Pulse Rate 88 79 Respiratory Rate 20 H 23 H Respiratory Effort Short of Breath Labored Respiratory Depth Respiratory Pattern Tachypnea Blood Pressure 148/93 H 142/87 H Blood Pressure Mean 111 105 Blood Pressure Source Blood Pressure Position Blood Pressure Location Pulse Ox 96 100 Oxygen Delivery Method Room Air Room Air Room Air 10/04/24 09:15 10/04/24 09:28 10/04/24 10:28 Temperature 97.9 F Temperature Source Oral Pulse Rate 81 89 84 Respiratory Rate 20 H 28 H 24 H Respiratory Effort Respiratory Depth Respiratory Pattern Blood Pressure 128/93 H 121/78 H Blood Pressure Mean 104 92 Blood Pressure Source Blood Pressure Position Blood Pressure Location Pulse Ox 98 96 Oxygen Delivery Method Room Air Room Air 10/04/24 12:00 10/04/24 12:54 10/04/24 13:29 Temperature 98.5 F 97.9 F Temperature Source Oral Pulse Rate 85 89 83 Respiratory Rate 16 14 Respiratory Effort Respiratory Depth Respiratory Pattern Blood Pressure 138/94 H 133/85 H 112/67 Blood Pressure Mean 108 101 82 Blood Pressure Source Monitor Blood Pressure Position Semi-Fowlers Blood Pressure Location Right Arm Pulse Ox 100 96 Oxygen Delivery Method Room Air 10/04/24 14:00 10/04/24 14:57 10/04/24 15:00 Temperature Temperature Source Pulse Rate 81 Respiratory Rate Respiratory Effort Normal Short of Breath Respiratory Depth Normal Respiratory Pattern Normal Blood Pressure Blood Pressure Mean Blood Pressure Source Blood Pressure Position Blood Pressure Location Pulse Ox Oxygen Delivery Method Room Air Room Air Weight Weight: 60 kg Body Mass Index (BMI) 23.4 Physical Exam Const alert, oriented x3, no apparent distress, average body habitus and healthy appearing General Appearance: cooperative, well kempt and well developed Orientation / Consciousness: awake, oriented to person, oriented to place and oriented to time HEENT normocephalic, head/scalp atraumatic, hearing grossly normal bilaterally and moist oral mucous membranes Eyes PERRL, EOMs intact bilaterally and conjunctivae normal Neck supple, no JVD, thyroid normal and no carotid bruits General: trachea midline Resp normal respiratory effort, no retractions and no use of accessory muscles Resp Narrative: Inspiratory rales were noted over the patient's right lower and mid lung tate. No wheezing was noted, no rhonchi were noted Auscultation: Negative for rales, rhonchi or wheezes Cardio regular rate, regular rhythm, S1 normal heart sound, S2 normal heart sound, no murmurs, no rub and no gallops GI normal to inspection, nondistended, normoactive bowel sounds, soft to palpation, non-tender and non-distended Extremity no clubbing, cyanosis or edema Skin no rashes or lesions noted General Skin Exam: no breakdown Neuro oriented x3, CN's II-XII intact bilaterally, no focal motor deficits and no sensory deficits noted Sensorium / Orientation: awake and alert Speech: speech normal Psych affect normal Results Lab / Micro Data 10/04/24 09:28 10/04/24 09:28 Labs: Laboratory Results - last 24 hr 10/04/24 09:28: WBC 7.5, RBC 3.90 L, Hgb 13.1, Hct 38.1, MCV 97.7, MCH 33.6 H, MCHC 34.4, RDW Std Deviation 45.7 H, RDW Coeff of Kizzy 12.7, Plt Count 264, MPV 8.8, Immature Gran % (Auto) 0.500, Neut % (Auto) 78.7 H, Lymph % (Auto) 10.1 L, [place] % (Auto) 10.3 H, Eos % (Auto) 0.3, Baso % (Auto) 0.1, Absolute Neuts (auto) 5.9, Absolute Lymphs (auto) 0.76 L, Nucleated RBC % 0, Sodium 128 L, Potassium 4.3, Chloride 97 L, Carbon Dioxide 16.1 L, Anion Gap 15, BUN 5, Creatinine 0.53 L, Estim Creat Clear Calc 110.57, Est GFR (MDRD) Non-Af 110, BUN/Creatinine Ratio 10.1, Glucose 98, Calcium 8.3, Troponin T High Sens < 6, NT pro BNP II 184, TSH 0.149 L, Free T4 1.20 Micro: Microbiology 10/04/24 14:12 Urine, Clean Catch Streptococcus pneumoniae Antigen (M - Final 10/04/24 14:12 Urine, Clean Catch Legionella Antigen - Final 10/04/24 09:11 Mucosa - Nose SARS-CoV-2, Influenza & RSV (PCR) - Final Imaging Radiology Impression Chest CTA 10/04/24 08:49 IMPRESSION: Large right consolidating pneumonia with less smaller left base pneumonia. No PE Reading [facility] Assessment & Plan Assessment/Plan (1) Pneumonia: PLAN: Plan 1. Bilateral community-acquired pneumonia-worse on right-patient was admitted to [facility] 3, pulse ox will be monitored, patient will be given IV Zosyn and seen in consultation by pulmonary medicine. Sputum culture will be obtained if possible, urine for Legionella and strep pneumo was ordered. #2 rheumatoid arthritis-patient will be given Plaquenil per her request, the remainder of her rheumatological medications will be held #3 hyponatremia-etiology unclear at this point, BMP will be rechecked tomorrow Total clinical time spent by myself addressing the patient's medical issues, reviewing all of her data, and collaborating with patient's care team: 75 minutes Charges/Coding Visit Charges Inpatient E&M: 75611 Init Hosp L3
[2024-10-04] MEDS: Albuterol 2.5 MG/3 ML VIAL.NEB. INHALATION ×2 (19:08→23:01)
[2024-10-04] MEDS: Heparin Injection (Vial) 5,000 UNIT/ML VIAL 5000 UNIT SC (20:21)
[2024-10-05] VITALS (9 sets, daily range): BP systolic 110–125; BP diastolic 67–81; PULSE 76–90; RESP 14–20; TEMP 36.5–37.4; O2SAT 97–98
[2024-10-05 00:49] LABS: Troponin T High Sens 2 HR 7 ng/L (<=14)
[2024-10-05 06:09] LABS: Hematocrit 39.8 % (37-47); Hemoglobin 13.4 g/dL (12.0-15.0); Immature Granulocytes Count 0.030 X10^3/uL (0.0-0.0); Mean Corp Hgb Conc 33.7 g/dL (32-36); Mean Corpuscular Volume 99.5 fL (81-99); Mean Platelet Vol. 9.2 fl (6.2-12.0); NRBC Flagged by Analyzer 0 % (0-5); Platelet Count 310 K/mm3 (150-450); RBC Distribution Width CV 13.0 % (11.6-14.6); RBC Distribution Width SD 47.8 fl (35.1-43.9); Red Blood Count 4.00 M/mm3 (4.2-5.4); White Blood Count 5.7 K/mm3 (4.4-11.0)
--- NOTE | 2024-10-05 06:38 | EX.PCM.CONCC ---
Assessment & Plan Assessment/Plan (1) Pneumonia: (2) SOB (shortness of breath): PLAN: Plan RECOMMENDATIONS: 1. Continue broad-spectrum antimicrobials as ordered. 2. Perform walking oximetry study prior to consideration for discharge home. 3. Encourage incentive spirometer use and mobilize patient as tolerated. 4. Outpatient pulmonary follow-up in approximately 1 month after discharge. 5. Recommend follow-up CT scan in approximately 6 weeks to document resolution of the consolidation. IMPRESSIONS: 1. Shortness of breath Likely related to underlying community-acquired pneumonia with evidence of right lower lobe consolidation on CTA chest. Pulmonary embolism was ruled out. Recommend continuing with broad-spectrum antimicrobials over the next 24 hours. The patient does report interval overall improvement in her dyspnea complaints. Recommend performing walking oximetry study prior to consideration for discharge home. The patient is nontoxic in appearance. If she continues to improve clinically, she can likely be discharged home tomorrow with 5 additional days of antimicrobials to complete a total of 7 days of therapy. I would recommend that he follow-up CT scan be completed in approximately 6 weeks to document resolution of the consolidation. 2. History of rheumatoid arthritis/Sjogren's syndrome/hyponatremia/GERD/hypothyroidism Complicates care, management, recovery and prognosis. Continue to hold home rheumatologic medications. Remainder of supportive care as noted above. This note was generated with I Do Now I Don't dictation software. It may contain incorrect words, spelling, and punctuation that were not noted in checking the note before signing. HPI Consult Data Date of Consult: 10/05/24 HPI Narrative Reason for Consultation: Pneumonia HPI Narrative: The patient is a 54-year-old female, with a history as outlined below, who presented to the emergency department on October 04 with complaints of progressive dyspnea of approximately 1 weeks duration. The patient has no pre-existing lung conditions. She is a lifelong non-smoker. She does, however, carry a diagnosis of rheumatoid arthritis and Sjogren's syndrome, which is medically managed by Dr. Garcia of rheumatology. She was last seen by her clinical radiologist last Friday, at which time, she was complaining of shortness of breath and pleuritic chest discomfort, for which her clinical radiologist was concerned about possible rheumatoid pleurisy. The patient was subsequently placed on prednisone 10 mg daily. Chest imaging and echocardiogram were subsequently ordered. However, the patient's symptoms continue to progress, prompting her emergency department evaluation. On presentation to the emergency department, the patient was documented to be afebrile and hemodynamically stable. She was maintaining appropriate oxygen saturations on room air. Laboratory evaluation revealed a normal white blood cell count. Hemoglobin and platelet count were stable. Chemistry profile was notable for a sodium of 128 with a chloride of 97 and creatinine of 0.53. CTA chest was negative for pulmonary embolism but did demonstrate a significant consolidation and atelectasis involving the right lower lobe. The patient was subsequently placed on antimicrobials and admitted to the hospital for further management. [facility] [place] Medical History (Updated 10/05/24 @ 09:[address] Ramez Edgar, DO) Hypothyroidism Rheumatoid arthritis History of Sjogren's disease Home Medications ?Medication ?Instructions ?Recorded ?Last Taken ?Type acetaminophen 650 mg 650 mg PO Q12H 02/27/23 Unknown History tablet,extended release (Tylenol Arthritis Pain) calcium 600 mg (as carbonate)-vit See Rx Instructions PO DAILY 02/27/23 10/04/24 10:00 History D3 5 mcg (200 unit)-minerals tablet supplement cyanocobalamin (vitamin B-12) 500 500 mcg PO DAILY 02/27/23 Unknown History mcg tablet esomeprazole magnesium 40 mg 40 mg PO DAILY 02/27/23 Unknown History capsule,delayed release estradiol 10 mcg vaginal insert 10 mcg vaginal 2XW 02/27/23 Unknown History (Imvexxy Maintenance Pack) folic acid 1 mg tablet 2 mg PO DAILY 02/27/23 Unknown History levothyroxine 100 mcg tablet 100 mcg PO DAILY thyroid 02/27/23 10/04/24 06:00 History (Levoxyl) 100 mcg liothyronine 5 mcg tablet 15 mcg PO .COMPLEX thyroid 02/27/23 10/03/24 14:00 History 15 mcg lysine 500 mg tablet (L-Lysine) 500 mg PO DAILY supplement 02/27/23 10/04/24 10:00 History montelukast 10 mg tablet 10 mg PO QHS asthma/copd 02/27/23 10/03/24 22:00 History multivitamin 1 tab PO DAILY supplement 02/27/23 10/04/24 10:51 History tramadol 50 mg tablet 50 mg PO DAILY PRN pain 02/27/23 Unknown History adalimumab-adaz 40 mg/0.4 mL 40 mg subcut Q14D injection 10/04/24 09/24/24 History subcutaneous pen injector (Hyrimoz(CF) Pen) adalimumab-adaz 40 mg/0.8 mL 40 mg subcut QWEEK 10/04/24 Unknown History subcutaneous pen injector (Hyrimoz Pen) hydroxychloroquine 200 mg tablet 200 mg PO BID supplement 10/04/24 10/04/24 10:00 History (Plaquenil) liothyronine 5 mcg tablet (Cytomel) 20 mcg PO .MWF thyroid 10/04/24 10/03/24 History methotrexate sodium 2.5 mg tablet 17.5 mg PO QWEEK immunosuppresent 10/04/24 09/28/24 10:00 History progesterone micronized 100 mg 100 mg PO QHS supplement 10/04/24 10/03/24 22:00 History capsule Allergy/AdvReac Type Severity Reaction Status Date / Time guaifenesin Allergy Swelling Verified 10/04/24 08:30 Sulfa (Sulfonamide Allergy Swelling Verified 10/04/24 08:30 Antibiotics) azithromycin AdvReac Nausea/Vom/ Verified 10/04/24 08:30 Diarrhea erythromycin base AdvReac Nausea/Vom/ Verified 10/04/24 08:30 Diarrhea Family History (Updated 02/27/23 @ 09:55 by Kendra Olmos) Father Myocardial infarction Mother Multiple myeloma Surgical History (Updated 02/27/23 @ 09:35 by Kendra Olmos) History of wisdom tooth extraction History of knee surgery History of cholecystectomy History of endometrial ablation Social History (Updated 02/27/23 @ 09:55 by Kendra Olmos) Smoking Status: Never smoker alcohol intake: never what type of physical activity do you participate in: walking do you feel safe at home: Yes Physical Exam Const alert, oriented x3 and no apparent distress General Appearance: cooperative and well developed HEENT normocephalic, head/scalp atraumatic and moist oral mucous membranes Eyes PERRL, EOMs intact bilaterally and conjunctivae normal Neck supple General: trachea midline Chest inspection of chest normal Resp normal respiratory effort Auscultation: rales right lower Cardio regular rate and regular rhythm GI normal to inspection, nondistended, normoactive bowel sounds Extremity no clubbing, cyanosis or edema Skin no rashes or lesions noted Neuro CN's II-XII intact bilaterally, moves all extremities and no focal motor deficits Psych cooperative and affect normal Lab / Micro Data 10/05/24 04:41 10/05/24 04:41 Labs: Laboratory Results - last 24 hr 10/04/24 09:28: WBC 7.5, RBC 3.90 L, Hgb 13.1, Hct 38.1, MCV 97.7, MCH 33.6 H, MCHC 34.4, RDW Std Deviation 45.7 H, RDW Coeff of Kizzy 12.7, Plt Count 264, MPV 8.8, Immature Gran % (Auto) 0.500, Neut % (Auto) 78.7 H, Lymph % (Auto) 10.1 L, Gaines % (Auto) 10.3 H, Eos % (Auto) 0.3, Baso % (Auto) 0.1, Absolute Neuts (auto) 5.9, Absolute Lymphs (auto) 0.76 L, Nucleated RBC % 0, Sodium 128 L, Potassium 4.3, Chloride 97 L, Carbon Dioxide 16.1 L, Anion Gap 15, BUN 5, Creatinine 0.53 L, Estim Creat Clear Calc 110.57, Est GFR (MDRD) Non-Af 110, BUN/Creatinine Ratio 10.1, Glucose 98, Calcium 8.3, Troponin T High Sens < 6, NT pro BNP II 184, TSH 0.149 L, Free T4 1.20 10/04/24 23:40: Troponin T Hi Sens 2 Hr 7 10/05/24 04:41: WBC 5.7, RBC 4.00 L, Hgb 13.4, Hct 39.8, MCV 99.5 H, MCH 33.5 H, MCHC 33.7, RDW Std Deviation 47.8 H, RDW Coeff of Kizzy 13.0, Plt Count 310, MPV 9.2, Immature Gran % (Auto) 0.500, Neut % (Auto) 69.7, Lymph % (Auto) 18.5 L, Gaines % (Auto) 10.3 H, Eos % (Auto) 0.3, Baso % (Auto) 0.7, Absolute Neuts (auto) 4.0, Absolute Lymphs (auto) 1.06, Nucleated RBC % 0 Micro: Microbiology 10/04/24 14:12 Urine, Clean Catch Streptococcus pneumoniae Antigen (M - Final 10/04/24 14:12 Urine, Clean Catch Legionella Antigen - Final 10/04/24 09:11 Mucosa - Nose SARS-CoV-2, Influenza & RSV (PCR) - Final Imaging Radiology Impression Chest CTA 10/04/24 08:49 IMPRESSION: Large right consolidating pneumonia with less smaller left base pneumonia. No PE Reading Location: [facility]- Charges/Coding Visit Charges Inpatient E&M: 23397 Init Hosp L3
[2024-10-05 06:59] LABS: Anion Gap 15 (5-15); BUN 4 mg/dL (4-19); BUN/Creat Ratio 7.3 RATIO (10-20); Calcium,Total 8.6 mg/dL (7.6-11.0); Carbon Dioxide 17.1 mmol/L (21.0-32.0); Chloride 103 mmol/L (98-108); Estimated Creatinine Clearance 99.67 ml/min (50-250); Glucose 73 mg/dL (70-99); Potassium 4.7 mmol/L (3.3-5.1)
[2024-10-05] MEDS: Albuterol 2.5 MG/3 ML VIAL.NEB. INHALATION ×3 (07:12→19:30)
[2024-10-05] MEDS: Calcium Carb/Vitamin D 1 TABLET Tablet PO ×2 (07:47→17:14)
[2024-10-05] MEDS: Heparin Injection (Vial) 5,000 UNIT/ML VIAL 5000 UNIT SC ×2 (07:47→21:08)
[2024-10-05] MEDS: Vancomycin HCl 1,500 MG in 0.9% Normal Saline (500mL Bag) 500 ML 250 MG IV (10:13)
[2024-10-05] MEDS: 0.9% Saline Lock 10 ML Syringe IV ×2 (10:13→21:12)
--- NOTE | 2024-10-05 10:25 | PCM.RX.CS ---
Consult Antibiotic Management Pharmacy has been consulted to manage selected antibiotic: Vancomycin Type of Intervention Type of Consult: New start Suspected Infection Suspected Infection: Pneumonia Labs Labs: Sodium 136 mmol/L (133-145) 10/05/24 04:41 Potassium 4.7 mmol/L (3.3-5.1) 10/05/24 04:41 Chloride 103 mmol/L (98-108) 10/05/24 04:41 Carbon Dioxide 17.1 mmol/L (21.0-32.0) L 10/05/24 04:41 Anion Gap 15 (5-15) 10/05/24 04:41 BUN 4 mg/dL (4-19) 10/05/24 04:41 Creatinine 0.54 mg/dL (0.70-1.20) L 10/05/24 04:41 Est GFR (MDRD) Non-Af 110 (>60) 10/05/24 04:41 BUN/Creatinine Ratio 7.3 RATIO (10-20) L 10/05/24 04:41 Glucose 73 mg/dL (70-99) 10/05/24 04:41 Microbiology Microbiology: Microbiology 10/04/24 14:12 Urine, Clean Catch Streptococcus pneumoniae Antigen (M - Final 10/04/24 14:12 Urine, Clean Catch Legionella Antigen - Final 10/04/24 09:11 Mucosa - Nose SARS-CoV-2, Influenza & RSV (PCR) - Final Dosing Weight Weight used for dosin kg Estimated Creatinine Clearance Estimated Creatinine Clearance: 99.67 Goal Trough Goal Trough: 15-20 mcg/mL Pharmacy Plan for Drug Dosing Pharmacy Plan for Drug Dosing: NEW START IV VANCOMYCIN Consulting Physician: Dr. Edgar Indication: Pneumonia Goal Trough: 15-20 SrCr: 0.54 CrCl: 99.67 Comments: Loading dose 1500mg X1 given @ 10:13 Vancomycin Dose: 1250mg Q12H to start @ 22:00 10/05/24 Pending Level: 10/06/24 @ 21:30 Pharmacy Service will continue to monitor and adjust dosing as required. Follow-Up Labs Follow-Up Labs: Trough: Vancomycin (10/06/24 @ 21:30)
--- NOTE | 2024-10-05 10:53 | CASEMGMT ---
IAIN VELAZQUEZ Assessment Face to Face with patient for initial transition planning/care coordination assessment. IAIN VELAZQUEZ introduced self and role at [facility], pt voices understanding. Pt is A&Ox4 and is resting comfortably in bed and is calm. Pt's at bedside. Care providers, pharmacy, and demographics verified. Admitting dx: BL Pneumonia LACE Strata: 1 PCP: Jan George Specialists:Radha (Rheumatology). Pt plans to follow up with [facility] as an OP and was given the contact information. Preferred Pharmacy: [facility] Insurance: MMO Prescription Benefit: Yes LNOK: Saeed (H) Living Arrangements: Pt lives with her in a single story home with 2 steps to enter ADLs/IADLs: Indep. 6c=24. Transportation: Self, DME: Denies HHC/SNF: Denies Pt?s goal: Home Plan: Home with once medically ready and to follow up with Pulmonary as an OP. Pt is currently 97% on RA. However, if pt were to qualify for home o2, A verbal list of local in-network DME companies were provided to the pt at this time. Pt prefers [facility].?Pt denies further questions or concerns. Report given to OUTBOUND SALES REPRESENTATIVE CM. Karely Carvalho RN, CM
[2024-10-05] MEDS: Piperacil/Tazobactam 3.375 GM in 0.9% Normal Saline (50mL MB+) 50 ML IV ×2 (13:01→21:07)
--- NOTE | 2024-10-05 17:09 | PN.HOSP_ITS ---
Reason for Visit Reason for Visit: Diagnoses Pneumonia, unspecified organism (10/04/24) Shortness of breath (10/04/24) Subjective Subjective Patient was seen and examined today, she still remains on room air and states that she feels well. Her white blood cell count remains normal. I talked briefly with pulmonary medicine about her care, at first pulmonary medicine wanted to place her on vancomycin but then decided not to, she remains on Zosyn at this time. Objective Data Objective Data Vital Signs: Vital Signs Temp Pulse Resp BP Pulse Ox O2 Del Method 98.1 F 82 14 110/68 97 Room Air 10/05/24 14:00 10/05/24 15:00 10/05/24 14:00 10/05/24 14:00 10/05/24 14:00 10/05/24 14:00 Oxygen Delivery Method Room Air Weight: 60 kg Body Mass Index (BMI) 23.4 Intake & Output: Intake and Output for Last 24 Hours 10/03/24 10/04/24 10/05/24 23:59 23:59 23:59 Intake Total 1186. 1330 / 1330 Balance 1330 / 1330 Lab / Micro Data 10/05/24 04:41 10/05/24 04:41 Labs: Laboratory Results - last 24 hr 10/04/24 23:40: Troponin T Hi Sens 2 Hr 7 10/05/24 04:41: WBC 5.7, RBC 4.00 L, Hgb 13.4, Hct 39.8, MCV 99.5 H, MCH 33.5 H, MCHC 33.7, RDW Std Deviation 47.8 H, RDW Coeff of Kizzy 13.0, Plt Count 310, MPV 9.2, Immature Gran % (Auto) 0.500, Neut % (Auto) 69.7, Lymph % (Auto) 18.5 L, M gallo % (Auto) 10.3 H, Eos % (Auto) 0.3, Baso % (Auto) 0.7, Absolute Neuts (auto) 4.0, Absolute Lymphs (auto) 1.06, Nucleated RBC % 0, Sodium 136, Potassium 4.7, Chloride 103, Carbon Dioxide 17.1 L, Anion Gap 15, BUN 4, Creatinine 0.54 L, Estim Creat Clear Calc 99.67, Est GFR (MDRD) Non-Af 110, BUN/Creatinine Ratio 7.3 L, Glucose 73, Calcium 8.6 Micro: Microbiology 10/05/24 10:20 Nasal Secretion MRSA (PCR) - Final 10/04/24 14:12 Urine, Clean Catch Streptococcus pneumoniae Antigen (M - Final 10/04/24 14:12 Urine, Clean Catch Legionella Antigen - Final 10/04/24 09:11 Mucosa - Nose SARS-CoV-2, Influenza & RSV (PCR) - Final Physical Exam Narrative alert, oriented x3, no apparent distress, average body habitus and healthy appearing General Appearance: cooperative, well kempt and well developed Orientation / Consciousness: awake, oriented to person, oriented to place and oriented to time HEENT normocephalic, head/scalp atraumatic, hearing grossly normal bilaterally and moist oral mucous membranes Eyes PERRL, EOMs intact bilaterally and conjunctivae normal Neck supple, no JVD, thyroid normal and no carotid bruits General: trachea midline Resp normal respiratory effort, no retractions and no use of accessory muscles Resp Narrative: Inspiratory rales were noted over the patient's right lower and mid lung tate. No wheezing was noted, no rhonchi were noted Auscultation: Negative for rales, rhonchi or wheezes Cardio regular rate, regular rhythm, S1 normal heart sound, S2 normal heart sound, no murmurs, no rub and no gallops GI normal to inspection, nondistended, normoactive bowel sounds, soft to palpation, non-tender and non-distended Extremity no clubbing, cyanosis or edema Skin no rashes or lesions noted General Skin Exam: no breakdown Neuro oriented x3, CN's II-XII intact bilaterally, no focal motor deficits and no sensory deficits noted Sensorium / Orientation: awake and alert Speech: speech normal Psych affect normal Assessment & Plan Assessment/Plan (1) Pneumonia: (2) SOB (shortness of breath): PLAN: Plan 1. Bilateral community-acquired pneumonia-worse on right-continue Zosyn, reevaluate tomorrow for possible discharge medically stable-patient will complete a course of Levaquin as an outpatient #2 rheumatoid arthritis-patient will be given Plaquenil per her request, the remainder of her rheumatological medications will be held #3 hyponatremia-etiology unclear at this point, BMP will be rechecked tomorrow Total clinical time spent by myself addressing the patient's medical issues, reviewing all of her data, and collaborating with patient's care team: 35 minutes Charges/Coding Visit Charges Inpatient E&M: 82311 Subs Hosp L2
[2024-10-06 02:50] VITALS: BP 121/78; PULSE 85; RESP 18; TEMP 35.8; O2SAT 96
[2024-10-06] MEDS: Piperacil/Tazobactam 3.375 GM in 0.9% Normal Saline (50mL MB+) 50 ML IV (05:15)
[2024-10-06] MEDS: 0.9% Saline Lock 10 ML Syringe IV (05:15)
[2024-10-06 07:00] VITALS: O2SAT 96
[2024-10-06 08:26] VITALS: BP 140/83; PULSE 77; RESP 14; TEMP 36.9; O2SAT 99
[2024-10-06] MEDS: Calcium Carb/Vitamin D 1 TABLET Tablet PO (08:30)
--- NOTE | 2024-10-06 08:42 | PCM.PN.INT ---
Assessment & Plan Assessment/Plan (1) Pneumonia: (2) SOB (shortness of breath): PLAN: Plan RECOMMENDATIONS: 1. Okay to transition to p.o. Levaquin to complete a total of 7 days of therapy. 2. Encourage incentive spirometer use and mobilize patient as tolerated. 3. Outpatient pulmonary follow-up in approximately 1 month after discharge. 4. Recommend follow-up CT scan in approximately 6 weeks to document resolution of the consolidation. 5. Will sign off at this time. Please call with any additional questions. IMPRESSIONS: 1. Shortness of breath Likely related to underlying community-acquired pneumonia with evidence of right lower lobe consolidation on CTA chest. Pulmonary embolism was ruled out. Given symptomatic improvement since admission with IV antibiotics, the patient can be transition to p.o. Levaquin to complete 7 days of therapy. I would recommend that he follow-up CT scan be completed in approximately 6 weeks to document resolution of the consolidation. 2. History of rheumatoid arthritis/Sjogren's syndrome/hyponatremia/GERD/hypothyroidism Complicates care, management, recovery and prognosis. Continue to hold home rheumatologic medications. Remainder of supportive care as noted above. This note was generated with V[employer] dictation software. It may contain incorrect words, spelling, and punctuation that were not noted in checking the note before signing. Subjective Subjective The patient was seen and examined at the bedside this morning. Events from the last 24 hours have been reviewed. The patient is currently afebrile, hemodynamically stable and maintaining appropriate oxygen saturations on room air. The patient reported that she feels much better this morning and was able to ambulate in the hallway without any shortness of breath. Objective Data Objective Data The patient's most recent lab work, culture data and imaging studies have all been personally reviewed. Vital Signs: Vital Signs Temp Pulse Resp BP Pulse Ox O2 Del Method 98.5 F 77 14 140/83 H 99 Room Air 10/06/24 08:26 10/06/24 08:26 10/06/24 08:26 10/06/24 08:26 10/06/24 08:26 10/06/24 08:26 Oxygen Delivery Method Room Air Weight: 132 lb 4.438 oz Body Mass Index (BMI) 23.4 Intake & Output: Intake and Output for Last 24 Hours 10/04/24 10/05/24 10/06/24 23:59 23:59 23:59 Intake Total 1186. 1380 / 1380 50 / 50 Balance 1380 / 1380 50 / 50 Lab / Micro Data Attestation: I reviewed the patient's lab results. 10/05/24 04:41 10/05/24 04:41 Micro: Microbiology 10/05/24 10:20 Nasal Secretion MRSA (PCR) - Final 10/04/24 14:12 Urine, Clean Catch Streptococcus pneumoniae Antigen (M - Final 10/04/24 14:12 Urine, Clean Catch Legionella Antigen - Final 10/04/24 09:11 Mucosa - Nose SARS-CoV-2, Influenza & RSV (PCR) - Final Physical Exam Const alert, oriented x3 and no apparent distress General Appearance: cooperative and well developed HEENT normocephalic, head/scalp atraumatic and moist oral mucous membranes Eyes PERRL, EOMs intact bilaterally and conjunctivae normal Neck supple General: trachea midline Chest inspection of chest normal Resp normal respiratory effort Auscultation: rales right lower Cardio regular rate and regular rhythm GI normal to inspection, nondistended, normoactive bowel sounds Extremity no clubbing, cyanosis or edema Skin no rashes or lesions noted Neuro CN's II-XII intact bilaterally, moves all extremities and no focal motor deficits Psych cooperative and affect normal Charges/Coding Visit Charges Inpatient E&M: 84540 Subs Hosp L2
[2024-10-06 09:44] VITALS: O2SAT 100; O2SAT 96
--- NOTE | 2024-10-06 12:59 | DCINST_ITS ---
Discharge Instructions Diet Discharge Diet: No restrictions DC O2, CPAP, BIPAP needs Home O2 Discharge instructions: No Dressing / Incision Discharge Activity: Return to Normal Activity Weight Bearing Status: Full weight bearing Follow Up Care Test Results: Test results from this visit will be discussed in further detail at your follow- up appointment, if applicable. Discharge Plan Admission Admit Date/Time: 10/04/24 12:36 Primary Reason for Your Visit: right lower lobe pneumonia Attending Provider: Sarbjit Tolbert Primary Care Provider: Jan George Discharge Orders/Prescriptions Prescriptions: No Action liothyronine 5 mcg tablet 15 mcg PO .COMPLEX Rx Instructions: 15 mcg orally t//fri/sun cyanocobalamin (vitamin B-12) 500 mcg tablet 500 mcg PO DAILY calcium carbonate-vit D3-min 600 mg calcium- 200 unit tablet See Rx Instructions PO DAILY Rx Instructions: 1 tab orally daily; 1 tab orally; lysine [L-Lysine] 500 mg tablet 500 mg PO DAILY multivitamin Tablet 1 tab PO DAILY acetaminophen [Tylenol Arthritis Pain] 650 mg tablet extended release 650 mg PO Q12H esomeprazole magnesium 40 mg capsule,delayed release(DR/EC) 40 mg PO DAILY Imvexxy Maintenance Pack 10 mcg insert 10 mcg vaginal 2XW folic acid 1 mg tablet 2 mg PO DAILY Patient Comments: TAKE 2 TABLETS BY MOUTH EVERY DAY levothyroxine [Levoxyl] 100 mcg tablet 100 mcg PO DAILY montelukast 10 mg tablet 10 mg PO QHS tramadol 50 mg tablet 50 mg PO DAILY PRN (Reason: pain) Hyrimoz Pen 40 mg/0.8 mL pen injector 40 mg subcut QWEEK methotrexate sodium 2.5 mg tablet 17.5 mg PO QWEEK adalimumab-adaz [Hyrimoz(CF) Pen] 40 mg/0.4 mL pen injector 40 mg SUBCUT Q14D Patient Comments: [NO ORIGINAL SIG] hydroxychloroquine [Plaquenil] 200 mg tablet 200 mg PO BID progesterone micronized 100 mg capsule 100 mg PO QHS liothyronine [Cytomel] 5 mcg tablet 20 mcg PO .MWF Rx Instructions: pt takes 20mcg every friday, friday, and friday at 3pm Referrals / Follow Up: Jan George DO [Primary Care Provider] -
--- NOTE | 2024-10-06 13:08 | DCINST_ITS ---
Discharge Instructions Diet Discharge Diet: No restrictions DC O2, CPAP, BIPAP needs Home O2 Discharge instructions: No Dressing / Incision Discharge Activity: Return to Normal Activity Weight Bearing Status: Full weight bearing Follow Up Care Test Results: Test results from this visit will be discussed in further detail at your follow- up appointment, if applicable. Discharge Plan Admission Admit Date/Time: 10/04/24 12:36 Primary Reason for Your Visit: right lower lobe pneumonia Attending Provider: Sarbjit Tolbert Primary Care Provider: Jan George Discharge Orders/Prescriptions Prescriptions: New levofloxacin 750 mg tablet 750 mg PO DAILY Qty: 7 0RF Rx Instructions: start today Continued liothyronine 5 mcg tablet 15 mcg PO .COMPLEX Rx Instructions: 15 mcg orally t//fri/sun cyanocobalamin (vitamin B-12) 500 mcg tablet 500 mcg PO DAILY calcium carbonate-vit D3-min 600 mg calcium- 200 unit tablet See Rx Instructions PO DAILY Rx Instructions: 1 tab orally daily; 1 tab orally; lysine [L-Lysine] 500 mg tablet 500 mg PO DAILY multivitamin Tablet 1 tab PO DAILY acetaminophen [Tylenol Arthritis Pain] 650 mg tablet extended release 650 mg PO Q12H esomeprazole magnesium 40 mg capsule,delayed release(DR/EC) 40 mg PO DAILY Imvexxy Maintenance Pack 10 mcg insert 10 mcg vaginal 2XW folic acid 1 mg tablet 2 mg PO DAILY Patient Comments: TAKE 2 TABLETS BY MOUTH EVERY DAY levothyroxine [Levoxyl] 100 mcg tablet 100 mcg PO DAILY montelukast 10 mg tablet 10 mg PO QHS tramadol 50 mg tablet 50 mg PO DAILY PRN (Reason: pain) Hyrimoz Pen 40 mg/0.8 mL pen injector 40 mg subcut QWEEK methotrexate sodium 2.5 mg tablet 17.5 mg PO QWEEK adalimumab-adaz [Hyrimoz(CF) Pen] 40 mg/0.4 mL pen injector 40 mg SUBCUT Q14D Patient Comments: [NO ORIGINAL SIG] hydroxychloroquine [Plaquenil] 200 mg tablet 200 mg PO BID progesterone micronized 100 mg capsule 100 mg PO QHS liothyronine [Cytomel] 5 mcg tablet 20 mcg PO .MWF Rx Instructions: pt takes 20mcg every friday, friday, and friday at 3pm Referrals / Follow Up: Jan George DO [Primary Care Provider] - Within 2 Weeks (Have her schedule a non contrast chest CT for six weeks from now for you) Disposition Disposition (needs filled in before D/C Order can be placed): Home, Self Care
--- NOTE | 2024-10-06 13:12 | DS.PCM_ITS ---
Providers Date of Admission: 10/04/24 Date of Discharge: 10/06/24 Primary Care Physician: Dr. Jan George, DO Consultations 10/04/24 13:41 Consult: Claim Benefit Specialist / Pulmonary Medicine Routine Consulting Provider: Intensivists/Pulmonary Med Reason for Consult: PNEUMONIA EMERGENT Consult: No MD Notified: Yes Date Notified: 10/04/24 Time Notified: 12:41 Method of Notification: Verbal Reason For Visit: BILATERAL PNEUMONIA Diagnosis Discharge Diagnosis (1) Pneumonia: Status: Acute Code(s): J18.9 - Pneumonia, unspecified organism (2) SOB (shortness of breath): Status: Acute Code(s): R06.02 - Shortness of breath Plan 1. Bilateral community-acquired pneumonia-worse on right-patient was admitted to [facility], pulse ox will be monitored, patient will be given IV Zosyn and seen in consultation by pulmonary medicine. Sputum culture will be obtained if possible, urine for Legionella and strep pneumo was ordered. #2 rheumatoid arthritis-patient will be given Plaquenil per her request, the remainder of her rheumatological medications will be held #3 hyponatremia-etiology unclear at this point, BMP will be rechecked tomorrow Total clinical time spent by myself addressing the patient's medical issues, reviewing all of her data, and collaborating with patient's care team: 75 minutes Medications at Discharge Home Medications acetaminophen 650 mg tablet,extended release (Tylenol Arthritis Pain) 650 mg PO Q12H pain 02/27/23 calcium 600 mg (as carbonate)-vit D3 5 mcg (200 unit)-minerals tablet See Rx Instructions PO DAILY supplement 02/27/23 cyanocobalamin (vitamin B-12) 500 mcg tablet 500 mcg PO DAILY vitamin 02/27/23 esomeprazole magnesium 40 mg capsule,delayed release 40 mg PO DAILY reflux 02/27/23 estradiol 10 mcg vaginal insert (Imvexxy Maintenance Pack) 10 mcg vaginal 2XW hormone 02/27/23 folic acid 1 mg tablet 2 mg PO DAILY supplement 02/27/23 levothyroxine 100 mcg tablet (Levoxyl) 100 mcg PO DAILY thyroid 02/27/23 liothyronine 5 mcg tablet 15 mcg PO .COMPLEX thyroid 02/27/23 lysine 500 mg tablet (L-Lysine) 500 mg PO DAILY supplement 02/27/23 montelukast 10 mg tablet 10 mg PO QHS asthma/copd 02/27/23 multivitamin 1 tab PO DAILY supplement 02/27/23 tramadol 50 mg tablet 50 mg PO DAILY PRN pain 02/27/23 adalimumab-adaz 40 mg/0.4 mL subcutaneous pen injector (Hyrimoz(CF) Pen) 40 mg subcut Q14D injection 10/04/24 adalimumab-adaz 40 mg/0.8 mL subcutaneous pen injector (Hyrimoz Pen) 40 mg subcut QWEEK pain 10/04/24 hydroxychloroquine 200 mg tablet (Plaquenil) 200 mg PO BID supplement 10/04/24 liothyronine 5 mcg tablet (Cytomel) 20 mcg PO .MWF thyroid 10/04/24 methotrexate sodium 2.5 mg tablet 17.5 mg PO QWEEK immunosuppresent 10/04/24 progesterone micronized 100 mg capsule 100 mg PO QHS supplement 10/04/24 fluconazole 100 mg tablet (Diflucan) 100 mg PO DAILY #10 tabs 10/06/24 levofloxacin 750 mg tablet 750 mg PO DAILY #7 tabs 10/06/24 Hospital Course Operations None Procedures None Summary of Care Provided Minutes Spent on Discharge: 31 Hospital Course: This 54-year-old white female was seen in the emergency room at [facility] with complaints of shortness of breath x 1 week along with right-sided chest pain. 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 Workup in the emergency room included a CBC which was unremarkable, patient's CHEM panel was remarkable for sodium of 128. CT of the chest showed a large right consolidating pneumonia with a less smaller left basilar pneumonia. There was no PE noted. Patient was admitted to PCU and placed on IV antibiotics, she was not hypoxic and she was seen in consultation by pulmonary medicine. Pulmonary medicine recommended a course of antibiotics as an outpatient with follow-up CT of the chest in 6 weeks. On 10/06/2024, patient was seen and examined:alert, oriented x3, no apparent distress, average body habitus and healthy appearing General Appearance: cooperative, well kempt and well developed Orientation / Consciousness: awake, oriented to person, oriented to place and oriented to time HEENT normocephalic, head/scalp atraumatic, hearing grossly normal bilaterally and moist oral mucous membranes Eyes PERRL, EOMs intact bilaterally and conjunctivae normal Neck supple, no JVD, thyroid normal and no carotid bruits General: trachea midline Resp normal respiratory effort, no retractions and no use of accessory muscles Resp Narrative: Inspiratory rales were noted over the patient's right lower and mid lung tate. No wheezing was noted, no rhonchi were noted Auscultation: Negative for rales, rhonchi or wheezes Cardio regular rate, regular rhythm, S1 normal heart sound, S2 normal heart sound, no murmurs, no rub and no gallops GI normal to inspection, nondistended, normoactive bowel sounds, soft to palpation, non-tender and non-distended Extremity no clubbing, cyanosis or edema Skin no rashes or lesions noted General Skin Exam: no breakdown Neuro oriented x3, CN's II-XII intact bilaterally, no focal motor deficits and no sensory deficits noted Sensorium / Orientation: awake and alert Speech: speech normal Psych affect normal Patient was discharged home in stable condition on 10/06/2024. Weight / BMI Weight Weight: 60 kg Body Mass Index (BMI) 23.4 ABG / Lab / Microbiology Data 10/05/24 04:41 10/05/24 04:41 Microbiology: Microbiology 10/04/24 12:28 Blood Culture (Wb) - Anticubital Left Blood Culture - Final No growth in 5 days. 10/04/24 12:19 Blood Culture (Wb) - Left Hand Blood Culture - Final No growth in 5 days. 10/05/24 10:20 Nasal Secretion MRSA (PCR) - Final 10/04/24 14:12 Urine, Clean Catch Streptococcus pneumoniae Antigen (M - Final 10/04/24 14:12 Urine, Clean Catch Legionella Antigen - Final 10/04/24 09:11 Mucosa - Nose SARS-CoV-2, Influenza & RSV (PCR) - Final D/C Instructions Discharge Diet: No restrictions Weight Bearing Status: Full weight bearing DC O2, CPAP, BIPAP Needs Home O2 Discharge instructions: No Meaningful Use Info Meaningful Use Meaningful Use Diagnoses (Choose all that apply): None applicable Discharge Plan Admission Admit Date/Time: 10/04/24 12:36 Primary Reason for Your Visit: right lower lobe pneumonia Attending Provider: Sarbjit Tolbert Primary Care Provider: Jan George Discharge Orders/Prescriptions Prescriptions: New levofloxacin 750 mg tablet 750 mg PO DAILY Qty: 7 0RF Rx Instructions: start today fluconazole [Diflucan] 100 mg tablet 100 mg PO DAILY Qty: 10 0RF Continued liothyronine 5 mcg tablet 15 mcg PO .COMPLEX Rx Instructions: 15 mcg orally t//fri/sun cyanocobalamin (vitamin B-12) 500 mcg tablet 500 mcg PO DAILY calcium carbonate-vit D3-min 600 mg calcium- 200 unit tablet See Rx Instructions PO DAILY Rx Instructions: 1 tab orally daily; 1 tab orally; lysine [L-Lysine] 500 mg tablet 500 mg PO DAILY multivitamin Tablet 1 tab PO DAILY acetaminophen [Tylenol Arthritis Pain] 650 mg tablet extended release 650 mg PO Q12H esomeprazole magnesium 40 mg capsule,delayed release(DR/EC) 40 mg PO DAILY Imvexxy Maintenance Pack 10 mcg insert 10 mcg vaginal 2XW folic acid 1 mg tablet 2 mg PO DAILY Patient Comments: TAKE 2 TABLETS BY MOUTH EVERY DAY levothyroxine [Levoxyl] 100 mcg tablet 100 mcg PO DAILY montelukast 10 mg tablet 10 mg PO QHS tramadol 50 mg tablet 50 mg PO DAILY PRN (Reason: pain) Hyrimoz Pen 40 mg/0.8 mL pen injector 40 mg subcut QWEEK methotrexate sodium 2.5 mg tablet 17.5 mg PO QWEEK adalimumab-adaz [Hyrimoz(CF) Pen] 40 mg/0.4 mL pen injector 40 mg SUBCUT Q14D Patient Comments: [NO ORIGINAL SIG] hydroxychloroquine [Plaquenil] 200 mg tablet 200 mg PO BID progesterone micronized 100 mg capsule 100 mg PO QHS liothyronine [Cytomel] 5 mcg tablet 20 mcg PO .MWF Rx Instructions: pt takes 20mcg every friday, friday, and friday at 3pm Referrals / Follow Up: Jan George, [Primary Care Provider] - Within 2 Weeks (Have her schedule a non contrast chest CT for six weeks from now for you) Disposition Disposition (needs filled in before D/C Order can be placed): Home, Self Care Charges/Coding Visit Charges Inpatient E&M: 90886 Subs Hosp L2
== END 2024-10-06 15:20 | disposition home or self-care (01) | DRG 194 ==
LOC: ED 08:59 → PCU 12:49
PROVIDERS: Admitting Provider Internal Medicine; Emergency Provider Surgery; PCP Student in an Organized Health Care Education/Training Program; Visit Provider Internal Medicine
DX: J18.9 Pneumonia, unspecified organism (principal); E87.1 Hypo-osmolality and hyponatremia; J98.11 Atelectasis; E03.9 Hypothyroidism, unspecified; M35.00 Sjogren syndrome, unspecified; M06.9 Rheumatoid arthritis, unspecified; K21.9 Gastro-esophageal reflux disease without esophagitis; Z79.890 Hormone replacement therapy; Z79.899 Other long term (current) drug therapy; Z90.49 Acquired absence of other specified parts of digestive tract
CPT/HCPCS: 36415; 71275; 80048; 83880; 84439; 84443; 84484; 85025; 87040; 87449; 87631; 87641; 93005; 94640; 99285; Q9967; A4216; J2405

== ENCOUNTER → 2024-10-13 | Outpatient (CLI) | payer OTHER, SELFPAY ==
[2024-10-13 14:12] LABS: AST(SGOT) 34 U/L (<=31); Alanine Aminotransfer ALT/SGPT 26 U/L (<=34); Albumin, Serum 4.0 g/dL (3.5-5.0); Alkaline Phosphatase 114 U/L (35-104); Anion Gap 12 (5-15); BUN 9 mg/dL (4-19); BUN/Creat Ratio 14.2 RATIO (10-20); Calcium,Total 9.4 mg/dL (7.6-11.0); Carbon Dioxide 21.8 mmol/L (21.0-32.0); Chloride 104 mmol/L (98-108); Globulin 3.4 g/dL (2.2-4.2); Glucose 81 mg/dL (70-99); Potassium 5.0 mmol/L (3.3-5.1)
== END | disposition home or self-care (01) ==
LOC: MTLAB 08:11
PROVIDERS: PCP Student in an Organized Health Care Education/Training Program; Referring Provider Internal Medicine Rheumatology; Visit Provider Internal Medicine Rheumatology
DX: M05.79 Rheumatoid arthritis with rheumatoid factor of multiple sites without organ or systems involvement (principal); Z79.899 Other long term (current) drug therapy
CPT/HCPCS: 36415; 80053

== ENCOUNTER → 2024-12-28 | Outpatient (CLI) | payer OTHER, SELFPAY ==
--- OUTSIDE RECORDS SUMMARY | 2024-12-21 07:06 | XMS RPT_ITS ---
Author Name Auto Generated Organization OHIP Care Team Providers Care Legal Director Name Role Phone PODLOGARCLAUDIA Referring Unavailable HOLLOWAY, JAN L Primary Care Unavailable HOLLOWAY, JAN L Primary Care Unavailable HOLLOWAY, JAN L Attending Unavailable HOLLOWAY, JAN L Primary Care Unavailable HOLLOWAY, JAN L Attending Unavailable HOLLOWAY, JAN L Primary Care Unavailable MONTY, KENDRA Referring Unavailable HOLLOWAY, JAN L Primary Care Unavailable HOLLOWAY, JAN L Primary Care Unavailable HOLLOWAY, JAN L Referring Unavailable HOLLOWAY, JAN L Primary Care Unavailable RINKU ROJAS Attending Unavailable HOLLOWAY, JAN L Primary Care Unavailable HOLLOWAY, JAN L Referring Unavailable KENDRA MILLAN Attending Unavailable HOLLOWAY, JAN L Primary Care Unavailable HOLLOWAY, JAN L Primary Care Unavailable CLAUDIA HUANG Attending Unavailable HOLLOWAY, JAN L Primary Care Unavailable MERCEDES MUJICA Attending Unavailable HOLLOWAY, JAN L Referring Unavailable HOLLOWAY, JAN L Primary Care Unavailable HOLLOWAY, JAN L Primary Care Unavailable HOLLOWAY, JAN L Referring Unavailable HOLLOWAY, JAN L Primary Care Unavailable HOLLOWAY, JAN L Referring Unavailable JOEY MILLANICA Attending Unavailable MONTY, KENDRA Referring Unavailable HOLLOWAY, JAN L Primary Care Unavailable JESSICA MAYA Referring Unavailable HOLLOWAY, JAN L Primary Care Unavailable HOLLOWAY, JAN L Primary Care Unavailable HOLLOWAY, JAN L Referring Unavailable PROBLEMS DATE TYPE CONDITION / CODE ATTENDING STATUS [facility] 06/09/2023 Active Dyslipidemia / E78.5(ICD-10) NA Active [facility] 11/23/2024 Active Pneumonia of bot h lungs due to infectious organism, unspecified part of lung / J18.9(ICD-10) NA Active [facility] 10/11/2024 Active Hospital dischar ge follow-up / Z09(ICD-10) PODLOGAR, CLAUDIA Active [facility] 10/11/2024 Active Hyponatremia / E87.1(ICD-10) PODLOGAR, CLAUDIA Active [facility] 10/11/2024 Active Sjogren's syndro me, with unspecified organ involvement (HCC) / M35.00(ICD-10) PODLOGAR, CLAUDIA Active [facility] 10/11/2024 Active Rheumatoid arthr itis, involving unspecified site, unspecified whether rheumatoid factor present (HCC) / M06.9(ICD-10) PODLOGAR, CLAUDIA Active [facility] 09/10/2024 Active Vasomotor sympto ms due to menopause / N95.1(ICD-10) KENDRA MILLAN Active [facility] 08/06/2024 Active Age-related oste oporosis without current pathological fracture / M81.0(ICD-10) NA Active [facility] 08/11/2024 Active Acute rhinosinus itis / J01.90(ICD-10) RINKU ROJAS Active [facility] 08/11/2024 Active Antibiotic-induc ed yeast infection / B37.9(ICD-10) RINKU ROJAS Active [facility] 08/11/2024 Active Antibiotic-induc ed yeast infection / T36.95XA(ICD-10) RINKU ROJAS Active [facility] 07/28/2024 Active Gastroesophageal reflux disease without esophagitis / K21.9(ICD-10) JAN HOLLOWAY Active [facility] 01/21/2007 Active Sicca syndrome ( HCC) / M35.00(ICD-10) JAN HOLLOWAY Active [facility] 07/28/2024 Active Other osteoporos is without current pathological fracture / M81.8(ICD-10) JAN HOLLOWAY Active [facility] 06/09/2024 Active Post menopausal syndrome / N95.1(ICD-10) NA Active [facility] 06/09/2024 Active Screening for osteoporosis / Z13.820(ICD-10) NA Active [facility] 06/09/2024 Active Easy bruising / R23.3(ICD-10) NA Active [facility] 06/09/2024 Active Fatigue, unspeci fied type / R53.83(ICD-10) Active [facility] 06/09/2024 Active Elevated hemoglo bin / D58.2(ICD-10) NA Active [facility] 06/09/2023 Active Vitamin D defici ency / E55.9(ICD-10) NA Active [facility] 03/23/2015 Active Hypothyroidism d ue to acquired atrophy of thyroid / E03.4(ICD-10) NA Active [facility] 05/16/2023 Active Encounter for sc reening mammogram for breast cancer / Z12.31(ICD-10) Active [facility] 05/18/2024 Active Encounter for gynecological examination (general) (routine) without abnormal findings / Z01.419(ICD-10) Active [facility] 12/10/2023 Active Hypoglycemia / E16.2(ICD-10) Active [facility] 06/10/2022 Active Rheumatoid arthr itis of multiple sites with negative rheumatoid factor (HCC) / M06.09(ICD-10) NA Active [facility] PROCEDURES No Procedure Records Found RESULTS LIPID 1995 PNL SERPL Collected: 025 7:10 AM Status: F Source: [facility] Order Comment: Specimen Type : BLOOD SPECIMEN Ordering Facility: [facility] Address: [address] [place] [address] TYPE CODE TESTS RESULT OUT OF RANGE REFERENCE UNITS LAB 2093-3(LOINC) Cholest SerPl-mCnc 186 <200 mg/dL Result Comment: <200 mg/dL, Desirable 200-239 mg/dL, Borderline high >239 mg/dL, High LAB 2571-8(LOINC) Trigl SerPl-mCnc 90 <150 mg/dL Result Comment: <150 mg/dL, Normal 150-199 mg/dL, Borderline high 200-499 mg/dL, High >499 mg/dL, Very high LAB 2085-9(LOINC) HDLc SerPl-mCnc 69 >39 mg/dL Result Comment: 40-59 mg/dL, Acceptable >59 mg/dL, High: Negative risk factor for coronary heart disease <40 mg/dL, Low: Positive risk factor for coronary heart disease LAB 2089-1(LOINC) LDLc SerPl-mCnc 101 High <100 mg/dL Result Comment: <100 mg/dL, Optimal 100-129 mg/dL, Near optimal/above optimal 130-159 mg/dL, Borderline high 160-189 mg/dL, High >189 mg/dL, Very high Secondary prevention optimal LDL Cholesterol levels are recommended to be <70 mg/dL LDL cholesterol is calculated using the Mcclain-NIH equation. LAB 77843-3(LOINC) NonHDLc SerPl-mCnc 117 <130 mg/dL Result Comment: <130 mg/dL, Optimal 130-159 mg/dL, Near optimal/above optimal 160-189 mg/dL, Borderline high 190-219 mg/dL, High >219 mg/dL, Very high Secondary prevention optimal non HDL Cholesterol levels are recommended to be <100 mg/dL LAB 33181-6(LOINC) VLDLc SerPl Calc-mCnc 15 <30 mg/dL LAB 9830-1(LOINC) Cholest/HDL c SerPl 2.70 <5.10 LAB 59843-4(LOINC) LDLc/HDLc SerPl 1.46 <2.54 Result Comment: Reference: 1. National Cholesterol Education Program ATP III Guideline At-A-Glance Quick Desk Reference: National Heart, Lung, and Blood [place]. National Institutes of Health. 2001: NIH Publication No. 01-3305. 2. An International Atherosclerosis Society position paper: global recommendations for the management of dyslipidemia: executive summary, Atherosclerosis. 2014: 232(2):410-413. LAB FT FASTING TIME 12 hrs Performed By: #### 46160-2 # ### [facility] CLIA [id number] [address] [facility] [facility] [place] [id number] [place] [facility] [id number] [address] [place] [address] [place] #### 3016-3 #### [facility] CLIA [id number] [address] [facility] [place] [id number] [place] TSH SERPL-ACNC Collected: 5 7:10 AM Status: F Source: [facility] Order Comment: Specimen Type : BLOOD SPECIMEN Ordering Facility: [facility] Address: [address] [place] [address] TYPE CODE TESTS RESULT OUT OF RANGE REFERENCE UNITS LAB 3016-3([facility]) TSH SerPl-aCnc 0.039 Low 0.270-4.200 mIU/L Performed By: #### 08315-6 # ### [facility] CLIA [id number] [address] [place], [place] [id number] [facility] CLIA [id number] [address] [place] [address] #### 3016-3 #### [facility] CLIA [id number] [address] [place] [address] CBC PNL BLD AUTO Collected: 5 7:10 AM Status: F Source: [facility] Order Comment: Specimen Type : BLOOD SPECIMEN Ordering Facility: [facility] Address: [address] [place] [address] TYPE CODE TESTS RESULT OUT OF RANGE REFERENCE UNITS LAB 6690-2(LOINC) WBC # Bld Auto 4.43 3.70-11.00 k/uL LAB 789-8(LOINC) RBC # Bld Auto 4.48 3.90-5.20 m/uL LAB 718-7(LOINC) Hgb Bld-mCnc 15.1 11.5-15.5 g/dL LAB 4544-3(LOINC) Hct VFr Bld Auto 43.8 36.0-46.0 % LAB 787-2(LOINC) MCV RBC Auto 97.8 80.0-100.0 fL LAB 785-6(LOINC) MCH RBC Qn Auto 33.7 26.0-34.0 pg LAB 786-4(LOINC) MCHC RBC Auto-mCnc 34.5 30.5-36.0 g/dL LAB 43356-8(LOINC) RDW RBC-Rto 12.0 11.5-15.0 % LAB 777-3(LOINC) Platelet # Bld Auto 228 150-400 k/uL LAB 35411-3([facility]) PMV Bld Auto 9.8 9.0-12.7 fL LAB 771-6([facility]) nRBC # Bld Auto <0.01 <0.01 k/uL Performed By: #### 15634-5 # ### [facility] CLIA [id number] [address] [place] [address] [place] COMP METAB 2000 PNL SERPL Collected: 7:10 AM Status: F Source: [facility] Order Comment: Specimen Type : BLOOD SPECIMEN Ordering Facility: [facility] Address: [address] [place] [address] TYPE CODE TESTS RESULT OUT OF RANGE REFERENCE UNITS LAB 2885-2([facility]) Prot SerPl-mCnc 6.9 6.3-8.0 g/dL LAB 1751-7([facility]) Albumin SerPl-mCnc 4.5 3.9-4.9 g/dL LAB 29072-0([facility]) Calcium SerPl-mCnc 9.9 8.5-10.2 mg/dL LAB 1975-2([facility]) Bilirub SerPl-mCnc 0.4 0.2-1.3 mg/dL LAB 6768-6([facility]) ALP SerPl-cCnc 72 34-123 U/L LAB 1920-8([facility]) AST SerPl-cCnc 34 13-35 U/L LAB 1742-6([facility]) ALT SerPl-cCnc 27 7-38 U/L LAB 2345-7([facility]) Glucose SerPl-mCnc 80 74-99 mg/dL Result Comment: The [place] Diabetes Association (ADA) provides guidance for cutoff [...] Standards of Medical Care in Diabetes 2016, [place] Diabetes Association. Diabetes Care. 2016.39(Suppl 1). LAB 3094-0(LOINC) BUN SerPl-mCnc 8 7-21 mg/dL LAB 2160-0(LOINC) Creat SerPl-mCnc 0.66 0.58-0.96 mg/dL LAB 2951-2(LOINC) Sodium SerPl-sCnc 139 136-144 mmol/L LAB 2823-3(LOINC) Potassium SerPl-sCnc 4.2 3.7-5.1 mmol/L LAB 2075-0(LOINC) Chloride SerPl-sCnc 103 98-107 mmol/L LAB 202-9(LOINC) CO2 SerPl-sCnc 23 22-30 mmol/L LAB 48228-5(LOINC) Anion Gap SerPl-sCnc 13 8-15 mmol/L LAB 97624-2(LOINC) eGFRcr SerPlBld CKD-EPI 2020 105 >=60 mL/min/1. 73m??? Result Comment: Estimated Gl omerular Filtration Rate (eGFR) is calculated using the 2020 CKD-EPI creatinine equation. This equation utilizes serum creatinine, sex, and age as parameters. The creatinine assay has traceable calibration to isotope dilution-mass spectrometry. Refer to KDIGO guidelines for clinical interpretation. In patients with unstable renal function, e.g. those with acute kidney injury, the eGFR may not accurately reflect actual GFR. Performed By: #### 31172-2 # ### [facility] [id number] [address] [place] [address] OF [facility] PROGRESS Observed: 12/06/2024 9:33 AM Status: COMPLETED Source: [facility] HNO ID: [id number] Author: MERCEDES MUJICA MD Service: ? Author Type: Physician Type: Progress Notes Filed: 12/06/2024 13:30 Note Text: [facility] OFFICE VISIT CONSULT 12/06/2024 Patient Name: Khloe Flores PRIMARY CARE PHYSICIAN: Jan Holloway DO REASON FOR CONSULT: Abnormal CT REFERRING PHYSICIAN: Jan Holloway DO My final recommendations will be communicated to the requesting health care provider by way of the shared medical record for internal providers or by letter via US mail for external providers. ASSESSMENT/PLAN 1. Pneumonia of both lungs due to infectious organism, unspecified part of lung (J18.9) 2. Immunosuppressed status (HCC) (D84.9) 3. Seronegative rheumatoid arthritis (HCC) (M06.00) 4. Sjogren's syndrome, with unspecified organ involvement (HCC) (M35.00) 5. Gastroesophageal reflux disease without esophagitis (K21.9) 6. Nonsmoker Recent hospitalization from 10/04 to 10/06 for bilateral pneumonia, treated with IV antibiotics and discharged on Levaquin. Repeat CT scan showed persistent right-sided infiltrate, likely representing slow resolution due to immunosuppressed status. Patient's symptoms are improving - Continue current management; no further antibiotics indicated at this time. - Repeat CT scan scheduled for 01/05 to assess resolution. - Bronchoscopy to be considered if CT scan shows worsening or no improvement, or if symptoms worsen (fever, chills, increased dyspnea, myalgias, or fatigue). - Educated patient on expected slow resolution of post-infectious inflammation due to immunosuppression, and to report any worsening symptoms promptly. - Provided infection prevention education, including hand hygiene and avoiding face-touching. - Virtual follow-up visit scheduled for end december. Patient instructed to contact me in case of symptoms, imaging and lab results. I discussed the plan in detail with the patient and the patient verbalizes understanding and is in agreement. Mercedes Mujica MD, Staff, [facility] [place] [facility] CHIEF COMPLAINT: Hospital Follow Up HISTORY OF PRESENT ILLNESS: Khloe Flores is a 54-year-old female with a history of lumbosacral radiculopathy, left lower extremity weakness, seronegative rheumatoid arthritis affecting multiple joints, Lyme disease, hypothyroidism, GERD, and Sjogren's syndrome, presenting for follow-up after a recent hospitalization for bilateral pneumonia. Khloe was admitted to [facility] from 10/04 to 10/06 for bilateral pneumonia, presenting with right-sided chest pain and dyspnea. She was treated with IV antibiotics and discharged on Levaquin and Diflucan. She reports that the chest pain and dyspnea began this summer, with worsening symptoms over the 01 of October weekend, leading to her hospitalization on 10/02. During her hospital stay, she underwent a chest X-ray, EKG, and CT scans with and without contrast. She was discharged with instructions to repeat the CT scan 6-8 weeks after discharge. No oxygen was required throughtout the hospital stay Khloe completed a 7-day course of antibiotics and reports improvement in her symptoms. However, she continues to experience dyspnea with exertion and a dry cough, particularly after eating and with exercise. These symptoms are new since her pneumonia diagnosis. She also reports a recent viral illness but denies it settling in her chest or causing a sinus infection. She notes mild congestion but does not find it concerning. Khloe is on immunosuppressive medications for rheumatoid arthritis, including methotrexate, TNF inhibitors, and Plaquenil. She recently switched from Xeljanz to a Humira biosimilar due to recurrent sinus infections. She also takes Flonase and Singulair for seasonal allergies to prevent sinus infections. She denies a history of smoking, asthma, or other lung issues. MMRC Dyspnea Scale: 0. 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 Environmental Exposure History: Pets: No birds Asbestos: No significant exposure Silica: No significant exposure [place]: No significant exposure Mold: No significant exposure Hot tub: No significant exposure Fumes: No significant exposure Metal dust: No significant exposure Beryllium: No significant exposure Dust: No significant exposure Medications: No relevant exposure for interstitial lung diseases FAMILY HISTORY Problem Relation Age of Onset Cancer Mother blood- multiple mylomia other (multiple myoloma) Mother Heart Father 54 [place]; Hypertension Maternal Grandmother Diabetes Maternal Grandmother Breast Cancer Maternal Grandmother other (Gallbladder Cancer) Maternal Grandfather 70 other (Lung and Brain Cancer) Paternal Grandfather 70 Seizures Daughter Resolved Seizures Son Resolved Breast Cancer Other 40 Breast Cancer Other 60 Breast Cancer Other 70 SOCIAL HISTORY[1] ALLERGIES ALLERGIES Allergen Reactions Cilantro Anaphylaxis Erythromycin Vomiting Floxin [Ofloxacin] Intolerance Guaifenesin Swelling lips swell Mycinette [Cetylpyr* Intolerance Sulfa (Sulfonamide * Swelling face Vesicare [Solifenac* Swelling tingle tongue Z-Pack [Azithromyci* Diarrhea, Vomiting CURRENT OUTPATIENT MEDICATIONS liothyronine (CYTOMEL) 5 mcg tablet Take 3 tablets 4 days a week and 4 tablets 3 days a week (M,W,F). estradiol (VIVELLE-DOT) 0.0375 mg/24 hr patch Apply 1 patch as directed two times a week. montelukast (SINGULAIR) 10 mg tablet Take 1 tablet by mouth daily at bedtime. adalimumab-adaz (HYRIMOZ) 40 mg/0.8 mL syringe Inject 0.8 mL subcutaneously every other week. levothyroxine (LEVOXYL) 100 mcg tablet Take 1 tablet by mouth daily before breakfast. progesterone micronized (PROMETRIUM) 100 mg capsule Take 1 capsule by mouth daily at bedtime. cyanocobalamin, vitamin [...] 1/2 tablet in the evening with dinner REVIEW OF SYSTEMS Ears/Nose/Mouth/Throat: (+) nasal congestion Respiratory: (+) exertional dyspnea, (+) dry cough The remainder of review of systems was negative. PHYSICAL EXAM BP 142/83 Pulse 72 Wt 141 lb 1.5 oz (64.0kg) SpO2 99% LMP 07/05/2015 General: Alert, oriented, no acute distress Neck: No carotid bruit on bilateral auscultation Respiratory: Clear to posterior auscultation, bilaterally Cardiovascular: Regular rate and rhythm, normal S1 and S2, no murmurs or added sounds Abdomen: Soft, non-tender, normal bowel sounds Extremities: No clubbing, cyanosis, or edema DATA Diagnostic tests reviewed for today's visit, including labs imaging and other relevant testing were personally reviewed and analysed by me: Most recent labs and imaging results. CT CHEST WO IVCON Result Date: 11/23/2024 IMPRESSION: Volume loss, with associated airspace opacity the right middle lobe. Airspace opacities are also seen in the right lower lobe. Findings are concerning for pneumonia. Tldv-xc-sal-type pulmonary nodules are seen predominantly within the right upper lobe also concerning for pneumonia. Interval follow-up examination after treatment is recommended over to ensure resolution. No mary lymphadenopathy is seen within the chest. Agricultural Equipment Design Engineer: PSCB Transcribe Date/Time: Nov 23 2024 2:25P Dictated by : AURELIO ESPARZA MD This examination was interpreted and the report reviewed and electronically signed by: AURELIO ESPARZA MD on Nov 23 2024 9:17PM EST # Lung cancer screening - Doesn't qualify. # Immunizations: COVID/Influenza/Pneumococcal/TDAP if not received prior/Shingles Immunization History Administered Date(s) Administered COVID-19 original vaccine, full dose, monovalent (MODERNA) 05/26/2020 06/23/2020 02/16/2021 influenza (IIV3) vaccine, age 6 mo - 64 yr, trivalent (AFLURIA, FLULAVAL, FLUVIRIN, FLUZONE) 02/17/2014 02/01/2019 04/03/2023 influenza (IIV4) vaccine, age 6 mo - 64 yr, quadrivalent (AFLURIA, FLULAVAL, FLUZONE) 02/11/2015 12/25/2015 02/01/2017 01/31/2018 influenza (IIV4) vaccine, age 6 mo - 64 yr, quadrivalent, PF (AFLURIA, FLUARIX, FLULAVAL, FLUZONE) 02/01/2019 influenza (RIV4) vaccine, recombinant, quadrivalent, PF (FLUBLOK) 02/26/2020 influenza (ccIIV4) vaccine, age 6+ mo, quadrivalent, PF (FLUCELVAX) 03/21/2021 02/20/2022 influenza vaccine, unspecified formulation 03/04/2007 01/23/2008 01/12/2009 12/30/2009 01/05/2011 12/28/2011 01/09/2013 novel influenza (I4W1-91) vaccine, PF 02/21/2009 tetanus diphtheria pertussis (Tdap) vaccine, age 7+ yr (ADACEL, BOOSTRIX) 04/02/2011 06/10/2022 zoster (RZV) vaccine, recombinant (SHINGRIX) 03/08/2022 03/08/2022 03/08/2022 05/31/2022 Verbal and/or written health teaching given to patient with > 40 minutes spent face to face with more than half of this for disease counseling. Recording using Connected software for draft documentation of the visit was discussed with the patient/authorized congressional representative; all questions welcomed and answered. Patient/authorized congressional representative agreed to proceed Mercedes Mujica MD, Staff, [facility] [place] [facility] [1] Social History Tobacco Use Smoking status: Never Smokeless tobacco: Never Vaping Use Vaping status: Never Used Substance Use Topics Alcohol use: No Drug use: No CNOV Observed: 12/06/2024 9:30 AM Status: COMPLETED Source: [facility] Office Visit ([facility]) KHLOE FLORES ([id number]) 1970 F Date Time Provider Department 12/06/24 9:30 AM MERCEDES MUJICA [facility] During your visit today, we recorded the following information about you: Pulse Blood pressure Weight 72/minute 142/83 64 kg Mercedes Mujica MD 12/06/2024 1:30 PM Signed [facility] OF PULMONARY MEDICINE OFFICE VISIT CONSULT 12/06/2024 Patient Name: Khloe Flores PRIMARY CARE PHYSICIAN: Jan Holloway DO REASON FOR CONSULT: Abnormal CT REFERRING PHYSICIAN: Jan Holloway DO My final recommendations will be communicated to the requesting health care provider by way of the shared medical record for internal providers or by letter via US mail for external providers. ASSESSMENT/PLAN 1. Pneumonia of both lungs due to infectious organism, unspecified part of lung (J18.9) 2. Immunosuppressed status (HCC) (D84.9) 3. Seronegative rheumatoid arthritis (HCC) (M06.00) 4. Sjogren's syndrome, with unspecified organ involvement (HCC) (M35.00) 5. Gastroesophageal reflux disease without esophagitis (K21.9) 6. Nonsmoker Recent hospitalization from 10/04 to 10/06 for bilateral pneumonia, treated with IV antibiotics and discharged on Levaquin. Repeat CT scan showed persistent right-sided infiltrate, likely representing slow resolution due to immunosuppressed status. Patient's symptoms are improving - Continue current management; no further antibiotics indicated at this time. - Repeat CT scan scheduled for 01/05 to assess resolution. - Bronchoscopy to be considered if CT scan shows worsening or no improvement, or if symptoms worsen (fever, chills, increased dyspnea, myalgias, or fatigue). - Educated patient on expected slow resolution of post-infectious inflammation due to immunosuppression, and to report any worsening symptoms promptly. - Provided infection prevention education, including hand hygiene and avoiding face-touching. - Virtual follow-up visit scheduled for end december. Patient instructed to contact me in case of symptoms, imaging and lab results. I discussed the plan in detail with the patient and the patient verbalizes understanding and is in agreement. Mercedes Mujica MD, Staff, [facility] [place] [facility] CHIEF COMPLAINT: Hospital Follow Up HISTORY OF PRESENT ILLNESS: Khloe Flores is a 54-year-old female with a history of lumbosacral radiculopathy, left lower extremity weakness, seronegative rheumatoid arthritis affecting multiple joints, Lyme disease, hypothyroidism, GERD, and Sjogren's syndrome, presenting for follow-up after a recent hospitalization for bilateral pneumonia. Khloe was admitted to [facility] from 10/04 to 10/06 for bilateral pneumonia, presenting with right-sided chest pain and dyspnea. She was treated with IV antibiotics and discharged on Levaquin and Diflucan. She reports that the chest pain and dyspnea began this summer, with worsening symptoms over the 01 of October weekend, leading to her hospitalization on 10/02. During her hospital stay, she underwent a chest X-ray, EKG, and CT scans with and without contrast. She was discharged with instructions to repeat the CT scan 6-8 weeks after discharge. No oxygen was required throughtout the hospital stay Khloe completed a 7-day course of antibiotics and reports improvement in her symptoms. However, she continues to experience dyspnea with exertion and a dry cough, particularly after eating and with exercise. These symptoms are new since her pneumonia diagnosis. She also reports a recent viral illness but denies it settling in her chest or causing a sinus infection. She notes mild congestion but does not find it concerning. Khloe is on immunosuppressive medications for rheumatoid arthritis, including methotrexate, TNF inhibitors, and Plaquenil. She recently switched from Xeljanz to a Humira biosimilar due to recurrent sinus infections. She also takes Flonase and Singulair for seasonal allergies to prevent sinus infections. She denies a history of smoking, asthma, or other lung issues. MMRC Dyspnea Scale: 0. 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 Environmental Exposure History: Pets: No birds Asbestos: No significant exposure Silica: No significant exposure [place]: No significant exposure Mold: No significant exposure Hot tub: No significant exposure Fumes: No significant exposure Metal dust: No significant exposure Beryllium: No significant exposure Dust: No significant exposure Medications: No relevant exposure for interstitial lung diseases FAMILY HISTORY Problem Relation Age of Onset Cancer Mother blood- multiple mylomia other (multiple myoloma) Mother Heart Father 54 [place]; Hypertension Maternal Grandmother Diabetes Maternal Grandmother Breast Cancer Maternal Grandmother other (Gallbladder Cancer) Maternal Grandfather 70 other (Lung and Brain Cancer) Paternal Grandfather 70 Seizures Daughter Resolved Seizures Son Resolved Breast Cancer Other 40 Breast Cancer Other 60 Breast Cancer Other 70 SOCIAL HISTORY[1] ALLERGIES ALLERGIES Allergen Reactions Cilantro Anaphylaxis Erythromycin Vomiting Floxin [Ofloxacin] Intolerance Guaifenesin Swelling lips swell Mycinette [Cetylpyr* Intolerance Sulfa (Sulfonamide * Swelling face Vesicare [Solifenac* Swelling tingle tongue Z-Pack [Azithromyci* Diarrhea, Vomiting CURRENT OUTPATIENT MEDICATIONS liothyronine (CYTOMEL) 5 mcg tablet Take 3 tablets 4 days a week and 4 tablets 3 days a week (M,W,F). estradiol (VIVELLE-DOT) 0.0375 mg/24 hr patch Apply 1 patch as directed two times a week. montelukast (SINGULAIR) 10 mg tablet Take 1 tablet by mouth daily at bedtime. adalimumab-adaz (HYRIMOZ) 40 mg/0.8 mL syringe Inject 0.8 mL subcutaneously every other week. levothyroxine (LEVOXYL) 100 mcg tablet Take 1 tablet by mouth daily before breakfast. progesterone micronized (PROMETRIUM) 100 mg capsule Take 1 capsule by mouth daily at bedtime. cyanocobalamin, vitamin [...] 1/2 tablet in the evening with dinner REVIEW OF SYSTEMS Ears/Nose/Mouth/Throat: (+) nasal congestion Respiratory: (+) exertional dyspnea, (+) dry cough The remainder of review of systems was negative. PHYSICAL EXAM BP 142/83 Pulse 72 Wt 141 lb 1.5 oz (64.0kg) SpO2 99% LMP 07/05/2015 General: Alert, oriented, no acute distress Neck: No carotid bruit on bilateral auscultation Respiratory: Clear to posterior auscultation, bilaterally Cardiovascular: Regular rate and rhythm, normal S1 and S2, no murmurs or added sounds Abdomen: Soft, non-tender, normal bowel sounds Extremities: No clubbing, cyanosis, or edema DATA Diagnostic tests reviewed for today's visit, including labs imaging and other relevant testing were personally reviewed and analysed by me: Most recent labs and imaging results. CT CHEST WO IVCON Result Date: 11/23/2024 IMPRESSION: Volume loss, with associated airspace opacity the right middle lobe. Airspace opacities are also seen in the right lower lobe. Findings are concerning for pneumonia. Xkne-es-sry-type pulmonary nodules are seen predominantly within the right upper lobe also concerning for pneumonia. Interval follow-up examination after treatment is recommended over to ensure resolution. No mary lymphadenopathy is seen within the chest. Agricultural Equipment Design Engineer: MILLY Transcribe Date/Time: Nov 23 2024 2:25P Dictated by : AURELIO ESPARZA MD This examination was interpreted and the report reviewed and electronically signed by: AURELIO ESPARZA MD on Nov 23 2024 9:17PM EST # Lung cancer screening - Doesn't qualify. # Immunizations: COVID/Influenza/Pneumococcal/TDAP if not received prior/Shingles Immunization History Administered Date(s) Administered COVID-19 original vaccine, full dose, monovalent (MODERNA) 05/26/2020 06/23/2020 02/16/2021 influenza (IIV3) vaccine, age 6 mo - 64 yr, trivalent (AFLURIA, FLULAVAL, FLUVIRIN, FLUZONE) 02/17/2014 02/01/2019 04/03/2023 influenza (IIV4) vaccine, age 6 mo - 64 yr, quadrivalent (AFLURIA, FLULAVAL, FLUZONE) 02/11/2015 12/25/2015 02/01/2017 01/31/2018 influenza (IIV4) vaccine, age 6 mo - 64 yr, quadrivalent, PF (AFLURIA, FLUARIX, FLULAVAL, FLUZONE) 02/01/2019 influenza (RIV4) vaccine, recombinant, quadrivalent, PF (FLUBLOK) 02/26/2020 influenza (ccIIV4) vaccine, age 6+ mo, quadrivalent, PF (FLUCELVAX) 03/21/2021 02/20/2022 influenza vaccine, unspecified formulation 03/04/2007 01/23/2008 01/12/2009 12/30/2009 01/05/2011 12/28/2011 01/09/2013 novel influenza (V8U3-15) vaccine, PF 02/21/2009 tetanus diphtheria pertussis (Tdap) vaccine, age 7+ yr (ADACEL, BOOSTRIX) 04/02/2011 06/10/2022 zoster (RZV) vaccine, recombinant (SHINGRIX) 03/08/2022 03/08/2022 03/08/2022 05/31/2022 Verbal and/or written health teaching given to patient with > 40 minutes spent face to face with more than half of this for disease counseling. Recording using Connected software for draft documentation of the visit was discussed with the patient/authorized congressional representative; all questions welcomed and answered. Patient/authorized congressional representative agreed to proceed Mercedes Mujica MD, Staff, Respiratory [place] [facility] [1] Social History Tobacco Use Smoking status: Never Smokeless tobacco: Never Vaping Use Vaping status: Never Used Substance Use Topics Alcohol use: No Drug use: No Referring Provider: JAN HOLLOWAY [[id number]] Allergies As of Date: 12/06/2024 Noted Allergy Reaction CILANTRO 08/26/2024 10 - Anaphylaxis ERYTHROMYCIN 02/12/2023 11 - Vomiting FLOXIN (OFLOXACIN) 01/19/2005 5 - Intolerance GUAIFENESIN 01/19/2005 7 - Swelling Comments: lips swell MYCINETTE (CETYLPYRIDINIUM-BENZOC*01/19/2005 5 - Intolerance SULFA (SULFONAMIDE ANTIBIOTICS) 01/19/2005 7 - Swelling Comments: face VESICARE (SOLIFENACIN SUCCINATE) 05/15/2007 7 - Swelling Comments: tingle tongue Z-PACK (AZITHROMYCIN) 03/16/2007 6 - Diarrhea 11 - Vomiting Date Reviewed: 12/06/2024 Reviewed by: Lisa Barillas MA - Fully Assessed Reason for Visit: Consult [173] Cmt: New patient. Primary Visit Diagnosis:Gastroesophageal reflux disease without esophagitis [K21.9] Other Visit Diagnoses:Pneumonia of both lungs due to infectious organism, unspecified part of lung [J18.9] Rheumatoid arthritis, involving unspecified site, unspecified whether rheumatoid factor present (HCC) [M06.9] Sjogren's syndrome, with unspecified organ involvement (HCC) [M35.00] Seronegative rheumatoid arthritis (HCC) [M06.00] Immunosuppressed status ([facility]) [D84.9] Order(s):CONSULT TO PULM/CRITICAL CARE [19990607] Order #: [id number]: 1 Prescriptions as of 12/06/2024 - liothyronine (CYTOMEL) 5 mcg tablet Take 3 tablets 4 days a week and 4 tablets 3 days a week (M,W,F). - estradiol (VIVELLE-DOT) 0.0375 mg/24 hr patch Apply 1 patch as directed two times a week. - montelukast (SINGULAIR) 10 mg tablet Take 1 tablet by mouth daily at bedtime. - adalimumab-adaz (HYRIMOZ) 40 mg/0.8 mL syringe Inject 0.8 mL subcutaneously every other week. - levothyroxine (LEVOXYL) 100 mcg tablet Take 1 tablet by mouth daily before breakfast. - progesterone micronized (PROMETRIUM) 100 mg capsule Take 1 capsule by mouth daily at bedtime. - cyanocobalamin, vitamin B-12, (VITAMIN B12 ORAL) [...] with dinner Problem List As Of Date 12/06/2024 Noted Resolved Chronic cholecystitis [K81.1] 02/14/2005 03/06/2015 HYPOTHYROIDISM NOS [E03.9] 07/12/2005 03/23/2015 Other malaise and fatigue [R53.81, R53.83] 07/12/2005 03/06/2015 Myalgia and myositis, unspecified [[id number]] 07/12/2005 03/06/2015 Loss of weight [R63.4] 08/02/2005 [...] hip pain [M25.552] 06/09/2023 Dyslipidemia [E78.5] 06/09/2023 Edema of both legs [R60.0] 12/10/2023 Hypoglycemia [E16.2] 12/10/2023 Elevated hemoglobin [D58.2] 06/09/2024 Fatigue [R53.83] 06/09/2024 Weight gain [R63.5] 06/09/2024 Screening for osteoporosis [Z13.820] 06/09/2024 Easy bruising [R23.3] 06/09/2024 Post menopausal syndrome [N95.1] 06/09/2024 Gastroesophageal reflux disease without esophag*07/28/2024 Age-related osteoporosis without current pathol*08/06/2024 Disposition: Return in about 7 weeks (around 01/24/2025). Follow-up and Disposition History for Encounter Date Provider Department Center 12/06/2024 [id number], ELIZABE*[facility] Encounter Status:Closed by MERCEDES MUJICA [facility] Observ[facility]: 11/30/2024 12:00 AM Status: COMPLETED Source: [facility] KHLOE FLORES ([id number]) 1970 F Date Time Provider Department 11/30[facility]24 [facility] During your visit today, we recorded the following information about you: Palma Hernandez LPN 11/30/2024 10:[address] Holloway, I am following up with you regarding my recent CT scan for pneumonia. Claudia Vargaslogben requested I notify my assembly stock supervisor, Dr. Garcia. After reviewing my CT scan, Dr. Garcia asked me to request from you a referral to a pin drafter. Thank you for your help, Jan Thomas DO 12/01/2024 10:10 PM Signed Referral placed Please help her schedule appt DO Ivette Aguilar Stephanie 12/02/2024 2:29 PM Signed Spoke with patient and scheduled. Mayra Samuels Allergies As of Date: 11/30/2024 Noted Allergy Reaction CILANTRO 08/26/2024 10 - Anaphylaxis ERYTHROMYCIN 02/12/2023 11 - Vomiting FLOXIN (OFLOXACIN) 01/19/2005 5 - Intolerance GUAIFENESIN 01/19/2005 7 - Swelling Comments: lips swell MYCINETTE (CETYLPYRIDINIUM-BENZOC*01/19/2005 5 - Intolerance SULFA (SULFONAMIDE ANTIBIOTICS) 01/19/2005 7 - Swelling Comments: face VESICARE (SOLIFENACIN SUCCINATE) 05/15/2007 7 - Swelling Comments: tingle tongue Z-PACK (AZITHROMYCIN) 03/16/2007 6 - Diarrhea 11 - Vomiting Date Reviewed: 10/11/2024 Reviewed by: Lauren Godwin MA - Fully Assessed Primary Visit Diagnosis:Pneumonia of both lungs due to infectious organism, unspecified part of lung [J18.9] Other Visit Diagnoses:Rheumatoid arthritis, involving unspecified site, unspecified whether rheumatoid factor present (HCC) [M06.9] Sjogren's syndrome, with unspecified organ involvement (HCC) [M35.00] Order(s):CONSULT TO PULM/CRITICAL CARE [19990607] Order #: [id number]: 1 FUTURE Prescriptions as of 12/02/2024 - liothyronine (CYTOMEL) 5 mcg tablet Take 3 tablets 4 days a week and 4 tablets 3 days a week (M,W,F). - estradiol (VIVELLE-DOT) 0.0375 mg/24 hr patch Apply 1 patch as directed two times a week. - montelukast (SINGULAIR) 10 mg tablet Take 1 tablet by mouth daily at bedtime. - adalimumab-adaz (HYRIMOZ) 40 mg/0.8 mL syringe Inject 0.8 mL subcutaneously every other week. - levothyroxine (LEVOXYL) 100 mcg tablet Take 1 tablet by mouth daily before breakfast. - progesterone micronized (PROMETRIUM) 100 mg capsule Take 1 capsule by mouth daily at bedtime. - cyanocobalamin, vitamin B-12, (VITAMIN B12 ORAL) [...] with dinner Problem List As Of Date 11/30/2024 Noted Resolved Chronic cholecystitis [K81.1] 02/14/2005 03/06/2015 HYPOTHYROIDISM NOS [E03.9] 07/12/2005 03/23/2015 Other malaise and fatigue [R53.81, R53.83] 07/12/2005 03/06/2015 Myalgia and myositis, unspecified [[id number]] 07/12/2005 03/06/2015 Loss of weight [R63.4] 08/02/2005 [...] hip pain [M25.552] 06/09/2023 Dyslipidemia [E78.5] 06/09/2023 Edema of both legs [R60.0] 12/10/2023 Hypoglycemia [E16.2] 12/10/2023 Elevated hemoglobin [D58.2] 06/09/2024 Fatigue [R53.83] 06/09/2024 Weight gain [R63.5] 06/09/2024 Screening for osteoporosis [Z13.820] 06/09/2024 Easy bruising [R23.3] 06/09/2024 Post menopausal syndrome [N95.1] 06/09/2024 Gastroesophageal reflux disease without esophag*07/28/2024 Age-related osteoporosis without current pathol*08/06/2024 Encounter Status:Closed by MAYRA SAMUELS on 12/02/24 [facility] Observed: 11/24/2024 12:00 AM Status: COMPLETED Source: [facility] Telephone ([facility]) KHLOE FLORES ([id number]) 1970 F Date Time Provider Department 11/24/24 JAN HOLLOWAY [facility] During your visit today, we recorded the following information about you: Magalie Cadet LPN 11/24/2024 2:31 PM Signed [facility] pharmacy calling asking for a 90 day rx due to patient insurance. Was given reference number [id number]. Pending rx Please advise The patient has been identified by name and date of : Yes Caregiver verified no other encounters exist for this prescription request: Yes Caregiver confirmed with patient/requestor that no other refills are due, in the near future, with this provider at this time: Yes The last office visit in the department: 10/11/2024 Does the patient have a future office visit with this provider/department: Yes 01/26/2025 Requested Prescriptions Pending Prescriptions Disp Refills liothyronine (CYTOMEL) 5 mcg tablet 216 tablet 3 Sig: Take 3 tablets 4 days a week and 4 tablets 3 days a week (M,W,F). Magalie Cadet LPN November 24, 2024 2:30 PM Jan Holloway DO 11/24/2024 8:03 PM Signed The following approved medication requests have been transmitted electronically. Requested Prescriptions Signed Prescriptions Disp Refills liothyronine (CYTOMEL) 5 mcg tablet 216 tablet 3 Sig: Take 3 tablets 4 days a week and 4 tablets 3 days a week (M,W,F). Authorizing Provider: JAN HOLLOWAY DO Allergies As of Date: 11/24/2024 Noted Allergy Reaction CILANTRO 08/26/2024 10 - Anaphylaxis ERYTHROMYCIN 02/12/2023 11 - Vomiting FLOXIN (OFLOXACIN) 01/19/2005 5 - Intolerance GUAIFENESIN 01/19/2005 7 - Swelling Comments: lips swell MYCINETTE (CETYLPYRIDINIUM-BENZOC*01/19/2005 5 - Intolerance SULFA (SULFONAMIDE ANTIBIOTICS) 01/19/2005 7 - Swelling Comments: face VESICARE (SOLIFENACIN SUCCINATE) 05/15/2007 7 - Swelling Comments: tingle tongue Z-PACK (AZITHROMYCIN) 03/16/2007 6 - Diarrhea 11 - Vomiting Date Reviewed: 10/11/2024 Reviewed by: Lauren Godwin MA - Fully Assessed Reason for Visit: requesting 90 day rx [Other] Visit Diagnosis: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] Prescriptions as of 12/07/2024 - liothyronine (CYTOMEL) 5 mcg tablet Take 3 tablets 4 days a week and 4 tablets 3 days a week (M,W,F). - estradiol (VIVELLE-DOT) 0.0375 mg/24 hr patch Apply 1 patch as directed two times a week. - montelukast (SINGULAIR) 10 mg tablet Take 1 tablet by mouth daily at bedtime. - adalimumab-adaz (HYRIMOZ) 40 mg/0.8 mL syringe Inject 0.8 mL subcutaneously every other week. - levothyroxine (LEVOXYL) 100 mcg tablet Take 1 tablet by mouth daily before breakfast. - progesterone micronized (PROMETRIUM) 100 mg capsule Take 1 capsule by mouth daily at bedtime. - cyanocobalamin, vitamin B-12, (VITAMIN B12 ORAL) [...] with dinner Problem List As Of Date 11/24/2024 Noted Resolved Chronic cholecystitis [K81.1] 02/14/2005 03/06/2015 HYPOTHYROIDISM NOS [E03.9] 07/12/2005 03/23/2015 Other malaise and fatigue [R53.81, R53.83] 07/12/2005 03/06/2015 Myalgia and myositis, unspecified [[id number]] 07/12/2005 03/06/2015 Loss of weight [R63.4] 08/02/2005 [...] hip pain [M25.552] 06/09/2023 Dyslipidemia [E78.5] 06/09/2023 Edema of both legs [R60.0] 12/10/2023 Hypoglycemia [E16.2] 12/10/2023 Elevated hemoglobin [D58.2] 06/09/2024 Fatigue [R53.83] 06/09/2024 Weight gain [R63.5] 06/09/2024 Screening for osteoporosis [Z13.820] 06/09/2024 Easy bruising [R23.3] 06/09/2024 Post menopausal syndrome [N95.1] 06/09/2024 Gastroesophageal reflux disease without esophag*07/28/2024 Age-related osteoporosis without current pathol*08/06/2024 Prescriptions ordered this encounter Disp Refills Start End LIOTHYRONINE 5 MCG TABLET 216 * 3 11/24/2024 11/30/2024 Sig: Take 3 tablets 4 days a week and 4 tablets 3 days a week (M,W,F). Medications Discontinued During This Encounter Prescriptions - liothyronine (CYTOMEL) 5 mcg tablet (Discontinued) Take 3 tablets 4 days a week and 4 tablets 3 days a week (M,W,F). Encounter Status:Closed by MAGALIE CADET on 12/07/24 PROGRESS Observed: 11/23/2024 2:00 PM Status: COMPLETED [id number] Author: MARIA M GUNN RT(Matt) Service: Radiology Author Type: Technologist Type: Progress Notes Filed: 11/23/2024 13:59 Note Text: Radiology Service Progress Note PATIENT NAME: Khloe Flores DATE OF SERVICE: November 23, 2024 TIME: 1:59 PM PATIENT IDENTITY VERIFICATION COMPLETED USING TWO (2) IDENTIFIERS: Name and Date of confirmed by patient verbally. FALL SCREENING: Has the patient had 2 falls in the last year or 1 fall with injury or currently using an Ambulatory Assistive Device (Walker, Cane, Wheelchair, Crutches, etc.)? No PATIENT GENDER DATA: Assigned female at . status: : No status: NO. PATIENT RELEVANT IMPLANT DATA REVIEWED: Not Applicable PATIENT PRESENTS WITH AN IMPLANTABLE OR ATTACHED GUYLINE OPERATOR: No RADIOLOGY DEPARTMENT: CT; Exam(s) Completed: Chest PERIPHERAL IV DATA: Not applicable SIGNED BY: RT La(R) November 23, 2024 1:[address] CHEST WO IVCON Observed: 11/23/2024 1:58 PM Status: F Source: [facility] * * *Final Report* * * DATE OF EXAM: Nov 23 2024 1:58PM [facility] 0541 - CT CHEST WO IVCON / PROCEDURE REASON: Pneumonia of both lungs due to infectious organism, unspecified part of lung * * * * Physician Interpretation * * * * EXAMINATION: CHEST CT WITHOUT CONTRAST CLINICAL HISTORY: Pneumonia Technique: Spiral CT acquisition of the chest from the thoracic inlet to the upper abdomen without contrast. MQ: [id number] CT Radiation dose: Integrated Dose-length product (DLP) for this visit = 219.89 mGy*cm CT Dose Reduction Employed: Automated exposure control(AEC) and iterative recon RESULT: Limitations: None. Lines, tubes, and devices: None. Lung parenchyma and airways: Volume loss, with associated airspace opacity air seen within the right middle lobe. Patchy airspace opacities are also in the right lower lobe. Findings are concerning for pneumonia. Additionally there are tree-in-bud type pulmonary nodules seen predominantly within the right upper lobe, also concerning for pneumonia. No pneumothorax or endobronchial lesion. There is left basilar atelectasis. Pleural space: There is no pleural effusion. Lower neck, lymph nodes, and mediastinum: There are no pathologically enlarged axillary, mediastinal, or hilar lymph nodes. Heart, pericardium, and thoracic vessels: The heart is normal in size. There is no significant pericardial effusion. Bones and soft tissues: There is multilevel degenerative change seen within the thoracic spine. A few presumed bone islands are seen within the osseous structures. Prominent Schmorl node is seen involving the superior endplate of the T10 vertebral body. Upper abdomen: Contents are seen within a distended stomach. IMPRESSION: Volume loss, with associated airspace opacity the right middle lobe. Airspace opacities are also seen in the right lower lobe. Findings are concerning for pneumonia. Uhlz-zy-ich-type pulmonary nodules are seen predominantly within the right upper lobe also concerning for pneumonia. Interval follow-up examination after treatment is recommended over to ensure resolution. No mary lymphadenopathy is seen within the chest. Agricultural Equipment Design Engineer: MILLY Transcribe Date/Time: Nov 23 2024 2:25P Dictated by : AURELIO ESPARZA MD This examination was interpreted and the report reviewed and electronically signed by: AURELIO ESPARZA MD on Nov 23 2024 9:17PM EST [id number] Observed: 10/11/2024 1:40 PM Status: COMPLETED Source: [facility] KHLOE FLORES ([id number]) 1970 F Date Time Provider Department 10/11/24 1:40 PM CLAUDIA HUANG During your visit today, we recorded the following information about you: Pulse Respiration Blood pressure Weight 94/minute 16/minute 124/80 61.2 kg Claudia Huang APRN.LEADER ASSEMBLER 10/11/2024 1:45 PM Signed 10/11/2024 Patient presents with: Hospital Follow Up Recording using Connected software for draft documentation of the visit was discussed with the patient/authorized congressional representative; all questions welcomed and answered. Patient/authorized congressional representative agreed to proceed SUBJECTIVE: This is a 54 year old that is here today for Above Complaints. Pneumonia: - Hospitalized from 10/04 to 10/06 for bilateral pneumonia, with right side being more severe. - Presented to the ER with right-sided chest pain and dyspnea after a week of symptoms including chest pain, malaise, and extreme fatigue. - Initially consulted assembly stock supervisor, who ordered an echo and chest X-ray, but symptoms worsened, prompting ER visit. - Denies fever; had a dry cough. - Treated with IV antibiotics in the hospital; discharged on Levaquin, with one day remaining. - Taking Diflucan concurrently, plans to stop after completing Levaquin. - Reports persistent fatigue, stating, I don't have the pep that I normally have. - Follow-up CT chest scheduled in 6 weeks. - MRSA, COVID, and flu tests were negative during hospitalization. - Sodium levels rechecked and normalized to 136 on 10/05. Rheumatoid Arthritis: - Managed with methotrexate and TNF inhibitor injections; currently paused due to pneumonia. - Taking Plaquenil, ensuring 4-hour interval between it and antibiotics. - Upcoming appointment with assembly stock supervisor to discuss resuming medications. Sjogren's Syndrome: - Concerns about dryness exacerbated by antibiotics; requested Diflucan to manage symptoms. ER record reviewed PAST MEDICAL HISTORY Diagnosis Date Acute cholecystitis GERD (gastroesophageal reflux disease) Hypothyroidism Hypothyroidism 03/23/2015 Localization-related (focal) (partial) epilepsy and epileptic syndromes with simple partial seizures, without mention of intractable epilepsy grand mal last one age 7 Lyme disease Microcalcifications of the breast 06/10/2013 Left breast Osteopenia of neck of left femur 2022 Osteoporosis lower spine and left hip Other specified disorder of gallbladder Rheumatoid arthritis(714.0) Sjogren's syndrome (HCC) 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 Sjogrens Syndrome Unspecified hypothyroidism ALLERGIES Cilantro, Erythromycin, Floxin [Ofloxacin], Guaifenesin, Mycinette [Cetylpyridinium-Benzocaine], Sulfa (Sulfonamide Antibiotics), Vesicare [Solifenacin Succinate], and Z-Pack [Azithromycin] MEDICATIONS Current Outpatient Medications Medication Sig estradiol (VIVELLE-DOT) 0.0375 mg/24 hr patch Apply 1 patch as directed two times a week. liothyronine (CYTOMEL) 5 mcg tablet Take 3 tablets 4 days a week and 4 tablets 3 days a week (M,W,F). montelukast (SINGULAIR) 10 mg tablet Take 1 tablet by mouth daily at bedtime. adalimumab-adaz (HYRIMOZ) 40 mg/0.8 mL syringe Inject 0.8 mL subcutaneously every other week. levothyroxine (LEVOXYL) 100 mcg tablet Take 1 tablet by mouth daily before breakfast. progesterone micronized (PROMETRIUM) 100 mg capsule Take 1 capsule by mouth daily at bedtime. cyanocobalamin, vitamin [...] No current facility-administered medications for this visit. Medications and allergies reviewed by this provider. SOCIAL HISTORY Social History Tobacco Use Smoking status: Never Smokeless tobacco: Never Vaping Use Vaping status: Never Used Substance Use Topics Alcohol use: No Drug use: No REVIEW OF SYSTEMS All other reviewed and negative other than HPI. OBJECTIVE: BP 124/80 Pulse 94 Resp 16 Wt 61.2 kg (135 lb) LMP 07/05/2015 (Exact Date) SpO2 98% BMI 23.92 kg/m? . Vital signs reviewed by this provider. APPEARANCE Well appearing, alert, in no acute distress, well-hydrated, well nourished. EYES conjunctiva and sclera normal. HEART RRR with normal S1 and S2, no murmurs, no gallops, no JVD appreciated LUNG clear to auscultation. No wheezes, rhonchi or rales EXTREMITIES Extremities normal, No deformities, No skin discoloration, and No edema SKIN Skin color, texture, turgor normal, no suspicious rashes or lesions to exposed skin 1. Hospital discharge follow-up (Z09) 2. Pneumonia of both lungs due to infectious organism, unspecified part of lung (J18.9) - Recent hospitalization from 10/04 to 10/06 for bilateral pneumonia, right side more affected than left. - Completed IV antibiotics during hospitalization; currently on Levaquin with one day remaining. - Auscultation reveals clear lung tate; no crackles noted. - Oxygen saturation at 98%. - Ordered follow-up CT of the chest in 6 weeks, around 11/22. Patient advised to schedule the appointment. - Continue Diflucan for one more day. - Educated patient that recovery will take time and gradual improvement in energy levels is expected. 3. Hyponatremia (E87.1) - Initial low sodium levels during hospitalization; rechecked on 10/05 with a result of 136 mEq/L, indicating normalization. 4. Sjogren's syndrome, with unspecified organ involvement (HCC) (M35.00) 5. Rheumatoid arthritis, involving unspecified site, unspecified whether rheumatoid factor present (HCC) (M06.9) - Currently taking Plaquenil, ensuring a 4-hour interval between it and the antibiotic. - Patient inquires about resuming methotrexate and TNF inhibitor injections; advised to consult with assembly stock supervisor on Friday. - Patient understands the importance of not restarting these medications prematurely to avoid triggering an autoimmune flare. Claudia Podlogjordi, JOVITA.LEADER ASSEMBLER Prescription instructions reviewed with patient as applicable. Patient advised if symptoms do not improve or if symptoms worsen sooner, to contact their primary care physician. Potential red flag symptoms discussed with the patient. Reviewed appropriate action plan to take if red flag symptoms occur. Patient agreeable to treatment plan. Medical Decision Making: Problems: Low: Stable chronic illness Moderate: Acute illness with systemic symptoms Data: Unique test(s) ordered: 1 Risk: Moderate: Moderate risk from testing/treatment Medical Decision Making Level: 4 - Moderate Allergies As of Date: 10/11/2024 Noted Allergy Reaction CILANTRO 08/26/2024 10 - Anaphylaxis ERYTHROMYCIN 02/12/2023 11 - Vomiting FLOXIN (OFLOXACIN) 01/19/2005 5 - Intolerance GUAIFENESIN 01/19/2005 7 - Swelling Comments: lips swell MYCINETTE (CETYLPYRIDINIUM-BENZOC*01/19/2005 5 - Intolerance SULFA (SULFONAMIDE ANTIBIOTICS) 01/19/2005 7 - Swelling Comments: face VESICARE (SOLIFENACIN SUCCINATE) 05/15/2007 7 - Swelling Comments: tingle tongue Z-PACK (AZITHROMYCIN) 03/16/2007 6 - Diarrhea 11 - Vomiting Date Reviewed: 10/11/2024 Reviewed by: Lauren Godwin MA - Fully Assessed Reason for Visit: Hospital Follow Up [177] Primary Visit Diagnosis:Hospital discharge follow-up [Z09] Other Visit Diagnoses:Pneumonia of both lungs due to infectious organism, unspecified part of lung [J18.9] Hyponatremia [E87.1] Sjogren's syndrome, with unspecified organ involvement (HCC) [M35.00] Rheumatoid arthritis, involving unspecified site, unspecified whether rheumatoid factor present (HCC) [M06.9] Order(s):CT CHEST WO IVCON [[id number]] Order #: [id number] FUTURE Prescriptions as of 10/11/2024 - estradiol (VIVELLE-DOT) 0.0375 mg/24 hr patch Apply 1 patch as directed two times a week. - liothyronine (CYTOMEL) 5 mcg tablet Take 3 tablets 4 days a week and 4 tablets 3 days a week (M,W,F). - montelukast (SINGULAIR) 10 mg tablet Take 1 tablet by mouth daily at bedtime. - adalimumab-adaz (HYRIMOZ) 40 mg/0.8 mL syringe Inject 0.8 mL subcutaneously every other week. - levothyroxine (LEVOXYL) 100 mcg tablet Take 1 tablet by mouth daily before breakfast. - progesterone micronized (PROMETRIUM) 100 mg capsule Take 1 capsule by mouth daily at bedtime. - cyanocobalamin, vitamin B-12, (VITAMIN B12 ORAL) [...] with dinner Problem List As Of Date 10/11/2024 Noted Resolved Chronic cholecystitis [K81.1] 02/14/2005 03/06/2015 HYPOTHYROIDISM NOS [E03.9] 07/12/2005 03/23/2015 Other malaise and fatigue [R53.81, R53.83] 07/12/2005 03/06/2015 Myalgia and myositis, unspecified [PDZ2264] 07/12/2005 03/06/2015 Loss of weight [R63.4] 08/02/2005 [...] hip pain [M25.552] 06/09/2023 Dyslipidemia [E78.5] 06/09/2023 Edema of both legs [R60.0] 12/10/2023 Hypoglycemia [E16.2] 12/10/2023 Elevated hemoglobin [D58.2] 06/09/2024 Fatigue [R53.83] 06/09/2024 Weight gain [R63.5] 06/09/2024 Screening for osteoporosis [Z13.820] 06/09/2024 Easy bruising [R23.3] 06/09/2024 Post menopausal syndrome [N95.1] 06/09/2024 Gastroesophageal reflux disease without esophag*07/28/2024 Age-related osteoporosis without current pathol*08/06/2024 Encounter Status:Closed by CLAUDIA HUANG on 10/11/24 PROGRESS Observed: 10/11/2024 1:30 PM Status: COMPLETED Source: [facility] HNO ID: [id number] Author: CLAUDIA HUANG APRN.LEADER ASSEMBLER Service: ? Author Type: Nurse Practitioner Type: Progress Notes Filed: 10/11/2024 13:45 Note Text: 10/11/2024 Patient presents with: Hospital Follow Up Recording using Connected software for draft documentation of the visit was discussed with the patient/authorized congressional representative; all questions welcomed and answered. Patient/authorized congressional representative agreed to proceed SUBJECTIVE: This is a 54 year old that is here today for Above Complaints. Pneumonia: - Hospitalized from 10/04 to 10/06 for bilateral pneumonia, with right side being more severe. - Presented to the ER with right-sided chest pain and dyspnea after a week of symptoms including chest pain, malaise, and extreme fatigue. - Initially consulted assembly stock supervisor, who ordered an echo and chest X-ray, but symptoms worsened, prompting ER visit. - Denies fever; had a dry cough. - Treated with IV antibiotics in the hospital; discharged on Levaquin, with one day remaining. - Taking Diflucan concurrently, plans to stop after completing Levaquin. - Reports persistent fatigue, stating, I don't have the pep that I normally have. - Follow-up CT chest scheduled in 6 weeks. - MRSA, COVID, and flu tests were negative during hospitalization. - Sodium levels rechecked and normalized to 136 on 10/05. Rheumatoid Arthritis: - Managed with methotrexate and TNF inhibitor injections; currently paused due to pneumonia. - Taking Plaquenil, ensuring 4-hour interval between it and antibiotics. - Upcoming appointment with assembly stock supervisor to discuss resuming medications. Sjogren's Syndrome: - Concerns about dryness exacerbated by antibiotics; requested Diflucan to manage symptoms. ER record reviewed PAST MEDICAL HISTORY Diagnosis Date Acute cholecystitis GERD (gastroesophageal reflux disease) Hypothyroidism Hypothyroidism 03/23/2015 Localization-related (focal) (partial) epilepsy and epileptic syndromes with simple partial seizures, without mention of intractable epilepsy grand mal last one age 7 Lyme disease Microcalcifications of the breast 06/10/2013 Left breast Osteopenia of neck of left femur 2022 Osteoporosis lower spine and left hip Other specified disorder of gallbladder Rheumatoid arthritis(714.0) Sjogren's syndrome (HCC) 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 Sjogrens Syndrome Unspecified hypothyroidism ALLERGIES Cilantro, Erythromycin, Floxin [Ofloxacin], Guaifenesin, Mycinette [Cetylpyridinium-Benzocaine], Sulfa (Sulfonamide Antibiotics), Vesicare [Solifenacin Succinate], and Z-Pack [Azithromycin] MEDICATIONS Current Outpatient Medications Medication Sig estradiol (VIVELLE-DOT) 0.0375 mg/24 hr patch Apply 1 patch as directed two times a week. liothyronine (CYTOMEL) 5 mcg tablet Take 3 tablets 4 days a week and 4 tablets 3 days a week (M,W,F). montelukast (SINGULAIR) 10 mg tablet Take 1 tablet by mouth daily at bedtime. adalimumab-adaz (HYRIMOZ) 40 mg/0.8 mL syringe Inject 0.8 mL subcutaneously every other week. levothyroxine (LEVOXYL) 100 mcg tablet Take 1 tablet by mouth daily before breakfast. progesterone micronized (PROMETRIUM) 100 mg capsule Take 1 capsule by mouth daily at bedtime. cyanocobalamin, vitamin [...] No current facility-administered medications for this visit. Medications and allergies reviewed by this provider. SOCIAL HISTORY Social History Tobacco Use Smoking status: Never Smokeless tobacco: Never Vaping Use Vaping status: Never Used Substance Use Topics Alcohol use: No Drug use: No REVIEW OF SYSTEMS All other reviewed and negative other than HPI. OBJECTIVE: BP 124/80 Pulse 94 Resp 16 Wt 61.2 kg (135 lb) LMP 07/05/2015 (Exact Date) SpO2 98% BMI 23.92 kg/m? . Vital signs reviewed by this provider. APPEARANCE Well appearing, alert, in no acute distress, well-hydrated, well nourished. EYES conjunctiva and sclera normal. HEART RRR with normal S1 and S2, no murmurs, no gallops, no JVD appreciated LUNG clear to auscultation. No wheezes, rhonchi or rales EXTREMITIES Extremities normal, No deformities, No skin discoloration, and No edema SKIN Skin color, texture, turgor normal, no suspicious rashes or lesions to exposed skin 1. Hospital discharge follow-up (Z09) 2. Pneumonia of both lungs due to infectious organism, unspecified part of lung (J18.9) - Recent hospitalization from 10/04 to 10/06 for bilateral pneumonia, right side more affected than left. - Completed IV antibiotics during hospitalization; currently on Levaquin with one day remaining. - Auscultation reveals clear lung tate; no crackles noted. - Oxygen saturation at 98%. - Ordered follow-up CT of the chest in 6 weeks, around 11/22. Patient advised to schedule the appointment. - Continue Diflucan for one more day. - Educated patient that recovery will take time and gradual improvement in energy levels is expected. 3. Hyponatremia (E87.1) - Initial low sodium levels during hospitalization; rechecked on 10/05 with a result of 136 mEq/L, indicating normalization. 4. Sjogren's syndrome, with unspecified organ involvement (HCC) (M35.00) 5. Rheumatoid arthritis, involving unspecified site, unspecified whether rheumatoid factor present (HCC) (M06.9) - Currently taking Plaquenil, ensuring a 4-hour interval between it and the antibiotic. - Patient inquires about resuming methotrexate and TNF inhibitor injections; advised to consult with assembly stock supervisor on Friday. - Patient understands the importance of not restarting these medications prematurely to avoid triggering an autoimmune flare. Claudia Podlogar, IGNITER ASSEMBLER.LEADER ASSEMBLER Prescription instructions reviewed with patient as applicable. Patient advised if symptoms do not improve or if symptoms worsen sooner, to contact their primary care physician. Potential red flag symptoms discussed with the patient. Reviewed appropriate action plan to take if red flag symptoms occur. Patient agreeable to treatment plan. Medical Decision Making: Problems: Low: Stable chronic illness Moderate: Acute illness with systemic symptoms Data: Unique test(s) ordered: 1 Risk: Moderate: Moderate risk from testing/treatment Medical Decision Making Level: 4 - Moderate PROGRESS Observed: 09/10/2024 9:37 AM Status: COMPLETED Source: [facility] HNO ID: [id number] Author: KENDRA MILLAN APRN.CNM Service: ? Author Type: Rod Finisher Type: Progress Notes Filed: 09/13/2024 13:01 Note Text: Khloe Flores is a 54 year old female who presents for problem visit follow up hormone replacement therapy HPI: Was seen for annual exam and complaints of hot flashes, night sweats, vaginal dryness, and difficulty losing weight. Was started on Vivelle dot 0.025mg transdermal patch Twice weekly and prometrium 100mg PO once a day on 05/18/24. Since starting HRT, hot flashes are much less, will have one during the day and 2 night sweats in the evening. More warm and sweaty when they occur and not drenched. Since last appointment, osteoporosis and started reclast infusion. Denies chest pain, shortness of breath, or other concerns. OB History Gravida2 Para2 Term2 Preterm0 AB0 Living2 SAB0 IAB0 Ectopic0 Multiple0 Live Births0 Comment: Menarche age 13 [employer] 28 Logging Supervisor History LMP: 07/05/2015 (Exact Date), Ablation Age at Menarche: 13 Age at First : Age at Menopause: Logging Supervisor History Comments: Sexual Activity: Yes; Male; HUSBANDS VASECTOMY Contraception: Vasectomy PAST MEDICAL HISTORY Diagnosis Date Acute cholecystitis GERD (gastroesophageal reflux disease) Hypothyroidism Hypothyroidism 03/23/2015 Localization-related (focal) (partial) epilepsy [...] Left 86,84 Arthroscopy, knee BIOPSY OF BREAST 03/31/2013 microcalcifications COLONOSCOPY EGD LAPS SURG CHOLECYSTECTOMY W/CHOLANGIOGRAPHY 02/27/2005 NOVASURE 08/01/2015 HYSTEROSCOPY, ABLATION ENDOMETRIAL DASHAASURE PAST SURGICAL HISTORY OF MOLE REMOVAL ON BACK X 2- benign PAST SURGICAL HISTORY OF wisdom teeth RECLAST INJECTION 08/26/2024 FAMILY HISTORY Problem Relation Age of Onset Cancer Mother blood- multiple mylomia other (multiple myoloma) Mother Heart Father 54 [place]; Hypertension Maternal Grandmother Diabetes Maternal Grandmother Breast [...] use: No Current Outpatient Medications Medication Sig liothyronine (CYTOMEL) 5 mcg tablet Take 3 tablets 4 days a week and 4 tablets 3 days a week (M,W,F). montelukast (SINGULAIR) 10 mg tablet Take 1 tablet by mouth daily at bedtime. adalimumab-adaz (HYRIMOZ) 40 mg/0.8 mL syringe Inject 0.8 mL subcutaneously every other week. levothyroxine (LEVOXYL) 100 mcg tablet Take 1 tablet by mouth daily before breakfast. estradiol (VIVELLE-DOT) 0.025 mg/24 hr patch Apply 1 Patch as directed two times a week. TWICE WEEKLY progesterone micronized (PROMETRIUM) 100 mg capsule Take 1 capsule by mouth daily at bedtime. estradiol 10 [...] No current facility-administered medications for this visit. Allergies As of Date: 09/10/2024 Allergen Noted Reaction CILANTRO 08/26/2024 Anaphylaxis ERYTHROMYCIN 02/12/2023 Vomiting FLOXIN [OFLOXACIN] 01/19/2005 Intolerance GUAIFENESIN 01/19/2005 Swelling MYCINETTE [CETYLPYRIDINIUM-BENZOC*01/19/2005 Intolerance SULFA (SULFONAMIDE ANTIBIOTICS) 01/19/2005 Swelling VESICARE [SOLIFENACIN SUCCINATE] 05/15/2007 Swelling Z-PACK [AZITHROMYCIN] 03/16/2007 Diarrhea and Vomiting Fully Assessed 09/10/2024 REVIEW OF SYSTEMS Abdomen: No bloating, early satiety, indigestion, or increased flatulence. No abdominal pain, nausea, vomiting, diarrhea, or constipation. Bladder: No dysuria, gross hematuria, urinary frequency, urinary urgency, or incontinence. Breast: No breast lumps, nipple d/c, overlying skin changes, redness or skin retraction. Expanded ROS: N/A Allergies and current medication updated:Yes SENSITIVE EXAM: Sensitive exam not performed. EXAM: BP 122/78 Wt 141 lb (64.0kg) LMP 07/05/2015 GENERAL: pleasant, female in no apparent distress HEENT: Normocephalic and atraumatic NECK: Supple and full range of motion DERMATOLOGY: Normal and without lesions CHEST: Normal inspiratory effort NEURO: alert and oriented x3,exam grossly non-focal EXTREMITIES: normal ASSESSMENT AND PLAN: Assessment AND Plan Vasomotor symptoms due to menopause Will increase Vivelle dot from 0.025 to next dosage. Reviewed risks, benefits, and alternatives. To continue vivelle dot and progesterone. Return if no improvement, worsening symptoms, or annual exam. Orders: estradiol (VIVELLE-DOT) 0.0375 mg/24 hr patch; Apply 1 patch as directed two times a week. Hormone replacement therapy (postmenopausal) Orders: estradiol (VIVELLE-DOT) 0.0375 mg/24 hr patch; Apply 1 patch as directed two times a week. Kendra Millan APRN.CNM CNOV Observed: 09/10/2024 9:30 AM Status: COMPLETED Source: [facility] Office Visit (OBGYWM) KHLOE FLORES ([id number]) 1970 F Date Time Provider Department 09/10/24 9:30 AM KENDRA MILLAN OBSHAVONWRose During your visit today, we recorded the following information about you: Blood pressure Weight 122/78 64 kg Kendra Milaln APRN.CNM 09/13/2024 1:01 PM Signed Khloe Flores is a 54 year old female who presents for problem visit follow up hormone replacement therapy HPI: Was seen for annual exam and complaints of hot flashes, night sweats, vaginal dryness, and difficulty losing weight. Was started on Vivelle dot 0.025mg transdermal patch Twice weekly and prometrium 100mg PO once a day on 05/18/24. Since starting HRT, hot flashes are much less, will have one during the day and 2 night sweats in the evening. More warm and sweaty when they occur and not drenched. Since last appointment, osteoporosis and started reclast infusion. Denies chest pain, shortness of breath, or other concerns. OB History Gravida2 Para2 Term2 Preterm0 AB0 Living2 SAB0 IAB0 Ectopic0 Multiple0 Live Births0 Comment: Menarche age 13 [employer] 28 Logging Supervisor History LMP: 07/05/2015 (Exact Date), Ablation Age at Menarche: 13 Age at First : Age at Menopause: Logging Supervisor History Comments: Sexual Activity: Yes; Male; HUSBANDS VASECTOMY Contraception: Vasectomy PAST MEDICAL HISTORY Diagnosis Date Acute cholecystitis GERD (gastroesophageal reflux disease) Hypothyroidism Hypothyroidism 03/23/2015 Localization-related (focal) (partial) epilepsy [...] Left 86,84 Arthroscopy, knee BIOPSY OF BREAST 03/31/2013 microcalcifications COLONOSCOPY EGD LAPS SURG CHOLECYSTECTOMY W/CHOLANGIOGRAPHY 02/27/2005 NOVASURE 08/01/2015 HYSTEROSCOPY, ABLATION ENDOMETRIAL NOVASURE PAST SURGICAL HISTORY OF MOLE REMOVAL ON BACK X 2- benign PAST SURGICAL HISTORY OF wisdom teeth RECLAST INJECTION 08/26/2024 FAMILY HISTORY Problem Relation Age of Onset Cancer Mother blood- multiple mylomia other (multiple myoloma) Mother Heart Father 54 [place]; Hypertension Maternal Grandmother Diabetes Maternal Grandmother Breast [...] use: No Current Outpatient Medications Medication Sig liothyronine (CYTOMEL) 5 mcg tablet Take 3 tablets 4 days a week and 4 tablets 3 days a week (M,W,F). montelukast (SINGULAIR) 10 mg tablet Take 1 tablet by mouth daily at bedtime. adalimumab-adaz (HYRIMOZ) 40 mg/0.8 mL syringe Inject 0.8 mL subcutaneously every other week. levothyroxine (LEVOXYL) 100 mcg tablet Take 1 tablet by mouth daily before breakfast. estradiol (VIVELLE-DOT) 0.025 mg/24 hr patch Apply 1 Patch as directed two times a week. TWICE WEEKLY progesterone micronized (PROMETRIUM) 100 mg capsule Take 1 capsule by mouth daily at bedtime. estradiol 10 [...] No current facility-administered medications for this visit. Allergies As of Date: 09/10/2024 Allergen Noted Reaction CILANTRO 08/26/2024 Anaphylaxis ERYTHROMYCIN 02/12/2023 Vomiting FLOXIN [OFLOXACIN] 01/19/2005 Intolerance GUAIFENESIN 01/19/2005 Swelling MYCINETTE [CETYLPYRIDINIUM-BENZOC*01/19/2005 Intolerance SULFA (SULFONAMIDE ANTIBIOTICS) 01/19/2005 Swelling VESICARE [SOLIFENACIN SUCCINATE] 05/15/2007 Swelling Z-PACK [AZITHROMYCIN] 03/16/2007 Diarrhea and Vomiting Fully Assessed 09/10/2024 REVIEW OF SYSTEMS Abdomen: No bloating, early satiety, indigestion, or increased flatulence. No abdominal pain, nausea, vomiting, diarrhea, or constipation. Bladder: No dysuria, gross hematuria, urinary frequency, urinary urgency, or incontinence. Breast: No breast lumps, nipple d/c, overlying skin changes, redness or skin retraction. Expanded ROS: N/A Allergies and current medication updated:Yes SENSITIVE EXAM: Sensitive exam not performed. EXAM: BP 122/78 Wt 141 lb (64.0kg) LMP 07/05/2015 GENERAL: pleasant, female in no apparent distress HEENT: Normocephalic and atraumatic NECK: Supple and full range of motion DERMATOLOGY: Normal and without lesions CHEST: Normal inspiratory effort NEURO: alert and oriented x3,exam grossly non-focal EXTREMITIES: normal ASSESSMENT AND PLAN: Assessment AND Plan Vasomotor symptoms due to menopause Will increase Vivelle dot from 0.025 to next dosage. Reviewed risks, benefits, and alternatives. To continue vivelle dot and progesterone. Return if no improvement, worsening symptoms, or annual exam. Orders: estradiol (VIVELLE-DOT) 0.0375 mg/24 hr patch; Apply 1 patch as directed two times a week. Hormone replacement therapy (postmenopausal) Orders: estradiol (VIVELLE-DOT) 0.0375 mg/24 hr patch; Apply 1 patch as directed two times a week. Kendra Millan APRN.CNM Allergies As of Date: 09/10/2024 Noted Allergy Reaction CILANTRO 08/26/2024 10 - Anaphylaxis ERYTHROMYCIN 02/12/2023 11 - Vomiting FLOXIN (OFLOXACIN) 01/19/2005 5 - Intolerance GUAIFENESIN 01/19/2005 7 - Swelling Comments: lips swell MYCINETTE (CETYLPYRIDINIUM-BENZOC*01/19/2005 5 - Intolerance SULFA (SULFONAMIDE ANTIBIOTICS) 01/19/2005 7 - Swelling Comments: face VESICARE (SOLIFENACIN SUCCINATE) 05/15/2007 7 - Swelling Comments: tingle tongue Z-PACK (AZITHROMYCIN) 03/16/2007 6 - Diarrhea 11 - Vomiting Date Reviewed: 09/10/2024 Reviewed by: Kiersten Wright MA - Fully Assessed Reason for Visit: Follow Up [171] Cmt: medication Primary Visit Diagnosis:Vasomotor symptoms due to menopause [N95.1] Other Visit Diagnosis:Hormone replacement therapy (postmenopausal) [Z79.890] Order(s):estradiol (VIVELLE-DOT) 0.0375 mg/24 hr patchApply 1 patch as directed two times a week.Disp: 24 patchRfl: 3 Prescriptions as of 09/13/2024 - estradiol (VIVELLE-DOT) 0.0375 mg/24 hr patch Apply 1 patch as directed two times a week. - liothyronine (CYTOMEL) 5 mcg tablet Take 3 tablets 4 days a week and 4 tablets 3 days a week (M,W,F). - montelukast (SINGULAIR) 10 mg tablet Take 1 tablet by mouth daily at bedtime. - adalimumab-adaz (HYRIMOZ) 40 mg/0.8 mL syringe Inject 0.8 mL subcutaneously every other week. - levothyroxine (LEVOXYL) 100 mcg tablet Take 1 tablet by mouth daily before breakfast. - progesterone micronized (PROMETRIUM) 100 mg capsule Take 1 capsule by mouth daily at bedtime. - cyanocobalamin, vitamin B-12, (VITAMIN B12 ORAL) [...] with dinner Problem List As Of Date 09/10/2024 Noted Resolved Chronic cholecystitis [K81.1] 02/14/2005 03/06/2015 HYPOTHYROIDISM NOS [E03.9] 07/12/2005 03/23/2015 Other malaise and fatigue [R53.81, R53.83] 07/12/2005 03/06/2015 Myalgia and myositis, unspecified [GYQ6513] 07/12/2005 03/06/2015 Loss of weight [R63.4] 08/02/2005 [...] hip pain [M25.552] 06/09/2023 Dyslipidemia [E78.5] 06/09/2023 Edema of both legs [R60.0] 12/10/2023 Hypoglycemia [E16.2] 12/10/2023 Elevated hemoglobin [D58.2] 06/09/2024 Fatigue [R53.83] 06/09/2024 Weight gain [R63.5] 06/09/2024 Screening for osteoporosis [Z13.820] 06/09/2024 Easy bruising [R23.3] 06/09/2024 Post menopausal syndrome [N95.1] 06/09/2024 Gastroesophageal reflux disease without esophag*07/28/2024 Age-related osteoporosis without current pathol*08/06/2024 Prescriptions ordered this encounter Disp Refills Start End ESTRADIOL 0.0375 MG/24 HR SEMIWEEKLY* 24 p* 3 09/10/2024 Route: TD Sig: Apply 1 patch as directed two times a week. Medications Discontinued During This Encounter Prescriptions - estradiol 10 mcg vaginal suppository maintenance pack (IMVEXXY) (Discontinued) Reported on 09/10/2024 - estradiol (VIVELLE-DOT) 0.025 mg/24 hr patch (Discontinued) Apply 1 Patch as directed two times a week. TWICE WEEKLY Encounter Status:Closed by KENDRA MILLAN on 09/13/24 CNPN Observed: 08/16/2024 12:00 AM Status: COMPLETED Source: [facility] KHLOE FLORES ([id number]) 1970 F Date Time Provider Department 08/16/24 JAN HOLLOWAY [facility] During your visit today, we recorded the following information about you: Paula Vicente, IAIN 08/16/2024 8:22 AM Signed Pt calling with 2 questions: 1)Pt is to have her Reclast infusion tomorrow (08/17) and just completed 5 day regimen of Augmentin this morning for tx of sinus infection. Pt asking if ok to continue with Reclast infusion tomorrow? 2) States she had a virtual visit with a provider on 08/11 for sinus sx's and was prescribed Augmentin for 5 days. Also advised to continue Sudafed, Flonase OTC BID in each nostril, and saline rinses. Pt states she has improved but still feels the sinusitis is not gone. Asking for another 5 days of Augmentin. Uses [facility]. Please call pt back with response. IAIN Agee Jordan L, DO 08/16/2024 8:32 AM Signed Okay with another rx for Augmentin as below Please delay Reclast for 1-2 weeks while on Antibiotics- please reschedule for her Jan Holloway DO The following approved medication requests have been transmitted electronically. Requested Prescriptions Signed Prescriptions Disp Refills amoxicillin-clavulanate potassium (AUGMENTIN) 875-125 mg per tablet 10 tablet 0 Sig: Take 1 tablet by mouth two times a day for 5 days. Authorizing Provider: JAN HOLLOWAY DO Holiday, [place], [place] 08/16/2024 9:49 AM Signed Pt informed. Please reschedule infusion per J note. ALLEGRA Caraballo, [place] 08/16/2024 10:31 AM Signed I called and spoke to patient and rescheduled her per her request to 08/26/24, she confirmed this date, time and location [place] [facility] Allergies As of Date: 08/16/2024 Noted Allergy Reaction ERYTHROMYCIN 02/12/2023 11 - Vomiting FLOXIN (OFLOXACIN) 01/19/2005 5 - Intolerance GUAIFENESIN 01/19/2005 7 - Swelling Comments: lips swell MYCINETTE (CETYLPYRIDINIUM-BENZOC*01/19/2005 5 - Intolerance SULFA (SULFONAMIDE ANTIBIOTICS) 01/19/2005 7 - Swelling Comments: face VESICARE (SOLIFENACIN SUCCINATE) 05/15/2007 7 - Swelling Comments: tingle tongue Z-PACK (AZITHROMYCIN) 03/16/2007 6 - Diarrhea 11 - Vomiting Date Reviewed: 08/11/2024 Reviewed by: Rinku Rojas APRN.LEADER ASSEMBLER - Fully Assessed Reason for Visit: Patient Question [0249] Visit Diagnosis:Acute rhinosinusitis [J01.90] Order(s):amoxicillin-clavulanate potassium (AUGMENTIN) 875-125 mg per tabletTake 1 tablet by mouth two times a day for 5 days.Disp: 10 tabletRfl: 0 Prescriptions as of 08/16/2024 - amoxicillin-clavulanate potassium (AUGMENTIN) 875-125 mg per tablet Take 1 tablet by mouth two times a day for 5 days. - liothyronine (CYTOMEL) 5 mcg tablet Take 3 tablets 4 days a week and 4 tablets 3 days a week (M,W,F). - montelukast (SINGULAIR) 10 mg tablet Take 1 tablet by mouth daily at bedtime. - adalimumab-adaz (HYRIMOZ) 40 mg/0.8 mL syringe Inject 0.8 mL subcutaneously every other week. - levothyroxine (LEVOXYL) 100 mcg tablet Take 1 tablet by mouth daily before breakfast. - estradiol (VIVELLE-DOT) 0.025 mg/24 hr patch Apply 1 Patch as directed two times a week. TWICE WEEKLY - progesterone micronized (PROMETRIUM) 100 mg capsule Take 1 capsule by mouth daily at bedtime. - estradiol [...] with dinner Problem List As Of Date 08/16/2024 Noted Resolved Chronic cholecystitis [K81.1] 02/14/2005 03/06/2015 HYPOTHYROIDISM NOS [E03.9] 07/12/2005 03/23/2015 Other malaise and fatigue [R53.81, R53.83] 07/12/2005 03/06/2015 Myalgia and myositis, unspecified [EGG2823] 07/12/2005 03/06/2015 Loss of weight [R63.4] 08/02/2005 [...] hip pain [M25.552] 06/09/2023 Dyslipidemia [E78.5] 06/09/2023 Edema of both legs [R60.0] 12/10/2023 Hypoglycemia [E16.2] 12/10/2023 Elevated hemoglobin [D58.2] 06/09/2024 Fatigue [R53.83] 06/09/2024 Weight gain [R63.5] 06/09/2024 Screening for osteoporosis [Z13.820] 06/09/2024 Easy bruising [R23.3] 06/09/2024 Post menopausal syndrome [N95.1] 06/09/2024 Gastroesophageal reflux disease without esophag*07/28/2024 Age-related osteoporosis without current pathol*08/06/2024 Prescriptions ordered this encounter Disp Refills Start End AMOXICILLIN 875 MG-POTASSIUM CLAVULA* 10 t* 0 08/16/2024 08/21/2024 Route: ORAL Sig: Take 1 tablet by mouth two times a day for 5 days. Medications Discontinued During This Encounter Prescriptions - amoxicillin-clavulanate potassium (AUGMENTIN) 875-125 mg per tablet (Discontinued) Take 1 tablet by mouth two times a day for 5 days. Encounter Status:Closed by LOWELL JURADO on 08/16/24 PROGRESS Observed: 08/11/2024 7:42 AM Status: COMPLETED Source: [facility] ID: [id number] Author: RINKU ROJAS APRN.LEADER ASSEMBLER Service: ? Author Type: Nurse Practitioner Type: Progress Notes Filed: 08/11/2024 07:49 Note Text: Telemedicine Visit - Distance Health Virtual Visit Note Patient seen on [employer] Video Visit platform. Location of patient: [facility] Joseluis Holloway, DO I have communicated my name and active licensure. The patient's identity and physical location were verified at the time of this visit. Either the patient or their legal congressional representative has been informed of the risks and benefits of -- and alternatives to -- treatment through a remote evaluation and consents to proceed with the evaluation remotely. Subjective The patient is a 53-year-old female with a history of Sjogren's syndrome, presenting with sinus pressure and congestion. Sinus Pressure and Congestion: - Onset: 2 weeks ago, coinciding with tree pollen season. - Initially mild, worsened 2 days ago. - Severe pressure on the left side of the face. - Thick yellow-green nasal discharge. - Eustachian tube dysfunction with ear popping. - Mild post-nasal drip; occasional dry cough. - Tried Sudafed and Flonase with minimal relief. - No recent travel or sick exposures. Sjogren's Syndrome: - History of Sjogren's syndrome and other autoimmune conditions. Constitutional: No fevers, chills Ears/Nose/Mouth/Throat: (+) left-sided facial pressure, (+) ear popping, (+) nasal discharge (thick yellow-green), (+) post nasal drip Respiratory: (+) mild dry cough Objective Last menstrual period 07/05/2015. General: Well-appearing, no acute distress. HEENT: Sclera white and healthy apparing, Maxillary sinus tenderness and pain with self-palpation. Moist mucous membranes Resp: Breathing unlabored. No cough noted 1. Acute rhinosinusitis (J01.90) - Onset approximately two weeks ago, coinciding with tree pollen season in [place]. - Exam reveals maxillary sinus tenderness and pain with self-palpation; no respiratory distress observed. - Initiated Augmentin 875 mg. - Advised to complete the full course of antibiotics. - Continue Sudafed, Flonase OTC BID in each nostril, and saline rinses. - Use Tylenol as needed for discomfort. - Follow-up with primary care in 5-7 days if symptoms persist, worsen, or remain unresolved. 2. Antibiotic-induced yeast infection (B37.9) - History of yeast infections secondary to antibiotic use. - Prescribed Diflucan for prophylaxis. Attestation Recording using Connected software for draft documentation of the visit was discussed with the patient/authorized congressional representative; all questions welcomed and answered. Patient/authorized congressional representative agreed to proceed IF YOUR SYMPTOMS PERSIST OR WORSENING IN THE NEXT 5-7 DAYS THEN PLEASE FOLLOW UP WITH YOUR PCP - Red flags discussed for need for in person care - All questions answered Differential Diagnoses - Acute Rhinosinusitis is more likely for the following reason(s): suggested by HANDP - Viral URI is less likely for the following reason(s): HANDP not suggestive Disposition The patient was discharged. CODING: SANJAY Observed: 08/06/2024 12:00 AM Status: COMPLETED Source: [facility] Telephone (FAMPWS) KHLOE FLORES ([id number]) 1970 F Date Time Provider Department 08/06/24 GABRIELSHASHI During your visit today, we recorded the following information about you: Allergies As of Date: 08/06/2024 Noted Allergy Reaction ERYTHROMYCIN 02/12/2023 11 - Vomiting FLOXIN (OFLOXACIN) 01/19/2005 5 - Intolerance GUAIFENESIN 01/19/2005 7 - Swelling Comments: lips swell MYCINETTE (CETYLPYRIDINIUM-BENZOC*01/19/2005 5 - Intolerance SULFA (SULFONAMIDE ANTIBIOTICS) 01/19/2005 7 - Swelling Comments: face VESICARE (SOLIFENACIN SUCCINATE) 05/15/2007 7 - Swelling Comments: tingle tongue Z-PACK (AZITHROMYCIN) 03/16/2007 6 - Diarrhea 11 - Vomiting Date Reviewed: 07/28/2024 Reviewed by: Palma Hernandez LPN - Fully Assessed Reason for Visit: Orders [681] Primary Visit Diagnosis:Age-related osteoporosis without current pathological fracture [M81.0] Prescriptions as of 08/06/2024 - montelukast (SINGULAIR) 10 mg tablet Take 1 tablet by mouth daily at bedtime. - adalimumab-adaz (HYRIMOZ) 40 mg/0.8 mL syringe Inject 0.8 mL subcutaneously every other week. - levothyroxine (LEVOXYL) 100 mcg tablet Take 1 tablet by mouth daily before breakfast. - liothyronine (CYTOMEL) 5 mcg tablet Take 3 tablets by mouth daily in the late afternoon. - estradiol (VIVELLE-DOT) 0.025 mg/24 hr patch Apply 1 Patch as directed two times a week. TWICE WEEKLY - progesterone micronized (PROMETRIUM) 100 mg capsule Take 1 capsule by mouth daily at bedtime. - estradiol [...] 1/2 tablet in the evening with dinner Facility-Administered Medications as of 08/06/2024 - zoledronic acid 5 mg PREMIX piggyback (RECLAST) Problem List As Of Date 08/06/2024 Noted Resolved Chronic cholecystitis [K81.1] 02/14/2005 03/06/2015 HYPOTHYROIDISM NOS [E03.9] 07/12/2005 03/23/2015 Other malaise and fatigue [R53.81, R53.83] 07/12/2005 03/06/2015 Myalgia and myositis, unspecified [AHH1071] 07/12/2005 03/06/2015 Loss of weight [R63.4] 08/02/2005 [...] hip pain [M25.552] 06/09/2023 Dyslipidemia [E78.5] 06/09/2023 Edema of both legs [R60.0] 12/10/2023 Hypoglycemia [E16.2] 12/10/2023 Elevated hemoglobin [D58.2] 06/09/2024 Fatigue [R53.83] 06/09/2024 Weight gain [R63.5] 06/09/2024 Screening for osteoporosis [Z13.820] 06/09/2024 Easy bruising [R23.3] 06/09/2024 Post menopausal syndrome [N95.1] 06/09/2024 Gastroesophageal reflux disease without esophag*07/28/2024 Age-related osteoporosis without current pathol*08/06/2024 Encounter Status:Closed by SHASHI DAVALOS on 08/06/24 SANJAY Observed: 08/06/2024 12:00 AM Status: COMPLETED Source: [facility] KHLOE FLORES ([id number]) 1970 F Date Time Provider Department 08/06/24 [facility] During your visit today, we recorded the following information about you: Palma Hernandez LPN 08/06/2024 8:44 AM Signed Lana from [facility] calling and states Pt's Reclast order needs to be in a Therapy plan not in the MAR. Call Lana with questions. Shashi Davalos APRN.LEADER ASSEMBLER 08/06/2024 9:04 AM Signed I placed a therapy order for it. Shashi Davalos APRN.LEADER ASSEMBLER Allergies As of Date: 08/06/2024 Noted Allergy Reaction ERYTHROMYCIN 02/12/2023 11 - Vomiting FLOXIN (OFLOXACIN) 01/19/2005 5 - Intolerance GUAIFENESIN 01/19/2005 7 - Swelling Comments: lips swell MYCINETTE (CETYLPYRIDINIUM-BENZOC*01/19/2005 5 - Intolerance SULFA (SULFONAMIDE ANTIBIOTICS) 01/19/2005 7 - Swelling Comments: face VESICARE (SOLIFENACIN SUCCINATE) 05/15/2007 7 - Swelling Comments: tingle tongue Z-PACK (AZITHROMYCIN) 03/16/2007 6 - Diarrhea 11 - Vomiting Date Reviewed: 07/28/2024 Reviewed by: Palma Hernandez LPN - Fully Assessed Prescriptions as of 08/06/2024 - montelukast (SINGULAIR) 10 mg tablet Take 1 tablet by mouth daily at bedtime. - adalimumab-adaz (HYRIMOZ) 40 mg/0.8 mL syringe Inject 0.8 mL subcutaneously every other week. - levothyroxine (LEVOXYL) 100 mcg tablet Take 1 tablet by mouth daily before breakfast. - liothyronine (CYTOMEL) 5 mcg tablet Take 3 tablets by mouth daily in the late afternoon. - estradiol (VIVELLE-DOT) 0.025 mg/24 hr patch Apply 1 Patch as directed two times a week. TWICE WEEKLY - progesterone micronized (PROMETRIUM) 100 mg capsule Take 1 capsule by mouth daily at bedtime. - estradiol [...] 1/2 tablet in the evening with dinner Facility-Administered Medications as of 08/06/2024 - zoledronic acid 5 mg PREMIX piggyback (RECLAST) Problem List As Of Date 08/06/2024 Noted Resolved Chronic cholecystitis [K81.1] 02/14/2005 03/06/2015 HYPOTHYROIDISM NOS [E03.9] 07/12/2005 03/23/2015 Other malaise and fatigue [R53.81, R53.83] 07/12/2005 03/06/2015 Myalgia and myositis, unspecified [ZCT0557] 07/12/2005 03/06/2015 Loss of weight [R63.4] 08/02/2005 [...] hip pain [M25.552] 06/09/2023 Dyslipidemia [E78.5] 06/09/2023 Edema of both legs [R60.0] 12/10/2023 Hypoglycemia [E16.2] 12/10/2023 Elevated hemoglobin [D58.2] 06/09/2024 Fatigue [R53.83] 06/09/2024 Weight gain [R63.5] 06/09/2024 Screening for osteoporosis [Z13.820] 06/09/2024 Easy bruising [R23.3] 06/09/2024 Post menopausal syndrome [N95.1] 06/09/2024 Gastroesophageal reflux disease without esophag*07/28/2024 Age-related osteoporosis without current pathol*08/06/2024 Encounter Status:Closed by PALMA HERNANDEZ LPN on 08/06/24 PROGRESS Observed: 07/28/2024 10:54 AM Status: COMPLETED Source: [facility] HNO ID: [id number] Author: JAN HOLLOWAY, DO Service: ? Author Type: Physician Type: Progress Notes Filed: 07/28/2024 10:59 Note Text: CC: Khloe Flores is a 53 year old female who presents to the office for bone density review. HPI: Recently she had a bone density showing osteoporosis as below, this is a new diagnosis for her. She has a family history of osteoporosis in a maternal grandmother as well as her mother. She is concerned about her fracture risk. 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 Clinical correlation is necessary. 2) FRACTURE RISK (based on FRAX): 10-year absolute fracture risk: - major osteoporotic fracture = 18 % - hip fracture = 4.9 % She has a long standing hx of GERD and acid reflux and GI upset. She is not able to tolerate NSAIDs due to the GERD severity of symptoms. She is concerned about oral risk of medications for treatment. She is willing to start IV or SQ treatment She is taking her vitamin D and calcium as well as magnesium and K2 She is regularly doing weight bearing exercise. PAST MEDICAL HISTORY Diagnosis Date Acute cholecystitis [...] wisdom teeth Current Outpatient Medications Medication Sig montelukast (SINGULAIR) 10 mg tablet Take 1 tablet by mouth daily at bedtime. adalimumab-adaz (HYRIMOZ) 40 mg/0.8 mL syringe Inject 0.8 mL subcutaneously every other week. levothyroxine (LEVOXYL) 100 mcg tablet Take 1 tablet by mouth daily before breakfast. liothyronine (CYTOMEL) 5 mcg tablet Take 3 tablets by mouth daily in the late afternoon. estradiol (VIVELLE-DOT) 0.025 mg/24 hr patch Apply 1 Patch as directed two times a week. TWICE WEEKLY progesterone micronized (PROMETRIUM) 100 mg capsule Take 1 capsule by mouth daily at bedtime. estradiol 10 [...] 1/2 tablet in the evening with dinner Current Facility-Administered Medications Medication Dose Route Frequency zoledronic acid 5 mg PREMIX piggyback (RECLAST) 5 mg INTRAVENOUS Every Year ALLERGIES Allergen Reactions Erythromycin Vomiting Floxin [Ofloxacin] Intolerance Guaifenesin Swelling lips swell Mycinette [Cetylpyr* Intolerance Sulfa (Sulfonamide * Swelling face Vesicare [Solifenac* Swelling tingle tongue Z-Pack [Azithromyci* Diarrhea, Vomiting Social History Tobacco Use Smoking status: Never Smokeless tobacco: Never Vaping Use Vaping status: Never Used Substance Use Topics Alcohol use: No Drug use: No ROS: See HPI PE: BP 124/80 Pulse 64 Temp (Src) 98 (Right Tympanic) Resp 16 Wt 143 lb (64.9kg) LMP 07/05/2015 Gen: AANDOX3, NAD, non-toxic appearing Discussion visit ASSESSMENT/PLAN: 1. Other osteoporosis without current pathological fracture - ICD9: 733.09, ICD10: M81.8 (primary diagnosis) - begin tx with IV reclast as ordered- need to avoid oral bisphosphonates due to GI upset history and GERD history. - Reviewed the need for Calcium and Vitamin D supplements and weight bearing exercise as tolerated - ZOLEDRONIC ACID 5 MG/100 ML IN MANNITOL 5 %-WATER INTRAVENOUS PIGGYBCK 2. Sjogrens Syndrome - ICD9: 710.2, ICD10: M35.00 - MONTELUKAST 10 MG TABLET 3. Gastroesophageal reflux disease without esophagitis - ICD9: 530.81, ICD10: K21.9 - begin tx with IV reclast as ordered- need to avoid oral bisphosphonates due to GI upset history and GERD history. - Reviewed the need for Calcium and Vitamin D supplements and weight bearing exercise as tolerated - ZOLEDRONIC ACID 5 MG/100 ML IN MANNITOL 5 %-WATER INTRAVENOUS PIGGYBCK Jan Holloway DO I spent 32 minutes in the visit, with more than 50% of the total symi-in-bxoj time of the visit in counseling / coordination of care. Return if no improvement. Follow up with Jan Holloway DO. To ER if develops chest pain, shortness of breath. Discussed risks, benefits, alternatives, and potential side effects of medications. Patient/Guardian expressed understanding and agreed with the plan. See patient instructions. Jan Holloway DO [address] [place] [address] JOSS Observed: 07/28/2024 10:20 AM Status: COMPLETED Source: [facility] Office Visit (FAMPWS) KHLOE FLORES ([id number]) 1970 F Date Time Provider Department 07/28/24 10:20 AM [facility] During your visit today, we recorded the following information about you: Temperature Pulse Respiration Blood pressure 98 degrees 64/minute 16/minute 124/80 Weight 64.9 kg Jan Holloway DO 07/28/2024 10:59 AM Signed CC: Khloe Flores is a 53 year old female who presents to the office for bone density review. HPI: Recently she had a bone density showing osteoporosis as below, this is a new diagnosis for her. She has a family history of osteoporosis in a maternal grandmother as well as her mother. She is concerned about her fracture risk. 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 Clinical correlation is necessary. 2) FRACTURE RISK (based on FRAX): 10-year absolute fracture risk: - major osteoporotic fracture = 18 % - hip fracture = 4.9 % She has a long standing hx of GERD and acid reflux and GI upset. She is not able to tolerate NSAIDs due to the GERD severity of symptoms. She is concerned about oral risk of medications for treatment. She is willing to start IV or SQ treatment She is taking her vitamin D and calcium as well as magnesium and K2 She is regularly doing weight bearing exercise. PAST MEDICAL HISTORY Diagnosis Date Acute cholecystitis [...] wisdom teeth Current Outpatient Medications Medication Sig montelukast (SINGULAIR) 10 mg tablet Take 1 tablet by mouth daily at bedtime. adalimumab-adaz (HYRIMOZ) 40 mg/0.8 mL syringe Inject 0.8 mL subcutaneously every other week. levothyroxine (LEVOXYL) 100 mcg tablet Take 1 tablet by mouth daily before breakfast. liothyronine (CYTOMEL) 5 mcg tablet Take 3 tablets by mouth daily in the late afternoon. estradiol (VIVELLE-DOT) 0.025 mg/24 hr patch Apply 1 Patch as directed two times a week. TWICE WEEKLY progesterone micronized (PROMETRIUM) 100 mg capsule Take 1 capsule by mouth daily at bedtime. estradiol 10 [...] 1/2 tablet in the evening with dinner Current Facility-Administered Medications Medication Dose Route Frequency zoledronic acid 5 mg PREMIX piggyback (RECLAST) 5 mg INTRAVENOUS Every Year ALLERGIES Allergen Reactions Erythromycin Vomiting Floxin [Ofloxacin] Intolerance Guaifenesin Swelling lips swell Mycinette [Cetylpyr* Intolerance Sulfa (Sulfonamide * Swelling face Vesicare [Solifenac* Swelling tingle tongue Z-Pack [Azithromyci* Diarrhea, Vomiting Social History Tobacco Use Smoking status: Never Smokeless tobacco: Never Vaping Use Vaping status: Never Used Substance Use Topics Alcohol use: No Drug use: No ROS: See HPI PE: BP 124/80 Pulse 64 Temp (Src) 98 (Right Tympanic) Resp 16 Wt 143 lb (64.9kg) LMP 07/05/2015 Gen: AANDOX3, NAD, non-toxic appearing Discussion visit ASSESSMENT/PLAN: 1. Other osteoporosis without current pathological fracture - ICD9: 733.09, ICD10: M81.8 (primary diagnosis) - begin tx with IV reclast as ordered- need to avoid oral bisphosphonates due to GI upset history and GERD history. - Reviewed the need for Calcium and Vitamin D supplements and weight bearing exercise as tolerated - ZOLEDRONIC ACID 5 MG/100 ML IN MANNITOL 5 %-WATER INTRAVENOUS PIGGYBCK 2. Sjogrens Syndrome - ICD9: 710.2, ICD10: M35.00 - MONTELUKAST 10 MG TABLET 3. Gastroesophageal reflux disease without esophagitis - ICD9: 530.81, ICD10: K21.9 - begin tx with IV reclast as ordered- need to avoid oral bisphosphonates due to GI upset history and GERD history. - Reviewed the need for Calcium and Vitamin D supplements and weight bearing exercise as tolerated - ZOLEDRONIC ACID 5 MG/100 ML IN MANNITOL 5 %-WATER INTRAVENOUS PIGGYBCK Jan Holloway DO I spent 32 minutes in the visit, with more than 50% of the total zavl-xb-bblv time of the visit in counseling / coordination of care. Return if no improvement. Follow up with Jan Holloway DO. To ER if develops chest pain, shortness of breath. Discussed risks, benefits, alternatives, and potential side effects of medications. Patient/Guardian expressed understanding and agreed with the plan. See patient instructions. Jan Holloway DO [address] [place] [address] Allergies As of Date: 07/28/2024 Noted Allergy Reaction ERYTHROMYCIN 02/12/2023 11 - Vomiting FLOXIN (OFLOXACIN) 01/19/2005 5 - Intolerance GUAIFENESIN 01/19/2005 7 - Swelling Comments: lips swell MYCINETTE (CETYLPYRIDINIUM-BENZOC*01/19/2005 5 - Intolerance SULFA (SULFONAMIDE ANTIBIOTICS) 01/19/2005 7 - Swelling Comments: face VESICARE (SOLIFENACIN SUCCINATE) 05/15/2007 7 - Swelling Comments: tingle tongue Z-PACK (AZITHROMYCIN) 03/16/2007 6 - Diarrhea 11 - Vomiting Date Reviewed: 07/28/2024 Reviewed by: Palma Hernandez LPN - Fully Assessed Reason for Visit: Follow Up [171] Cmt: Discuss need for BMD Primary Visit Diagnosis:Other osteoporosis without current pathological fracture [M81.8] Other Visit Diagnoses:Sjogrens Syndrome [M35.00] Gastroesophageal reflux disease without esophagitis [K21.9] Order(s):montelukast (SINGULAIR) 10 mg tabletTake 1 tablet by mouth daily at bedtime.Disp: 90 tabletRfl: 2 zoledronic acid 5 mg PREMIX piggyback (RECLAST)Disp: Rfl: Prescriptions as of 07/28/2024 - montelukast (SINGULAIR) 10 mg tablet Take 1 tablet by mouth daily at bedtime. - adalimumab-adaz (HYRIMOZ) 40 mg/0.8 mL syringe Inject 0.8 mL subcutaneously every other week. - levothyroxine (LEVOXYL) 100 mcg tablet Take 1 tablet by mouth daily before breakfast. - liothyronine (CYTOMEL) 5 mcg tablet Take 3 tablets by mouth daily in the late afternoon. - estradiol (VIVELLE-DOT) 0.025 mg/24 hr patch Apply 1 Patch as directed two times a week. TWICE WEEKLY - progesterone micronized (PROMETRIUM) 100 mg capsule Take 1 capsule by mouth daily at bedtime. - estradiol [...] 1/2 tablet in the evening with dinner Facility-Administered Medications as of 07/28/2024 - zoledronic acid 5 mg PREMIX piggyback (RECLAST) Problem List As Of Date 07/28/2024 Noted Resolved Chronic cholecystitis [K81.1] 02/14/2005 03/06/2015 HYPOTHYROIDISM NOS [E03.9] 07/12/2005 03/23/2015 Other malaise and fatigue [R53.81, R53.83] 07/12/2005 03/06/2015 Myalgia and myositis, unspecified [[id number]] 07/12/2005 03/06/2015 Loss of weight [R63.4] 08/02/2005 [...] hip pain [M25.552] 06/09/2023 Dyslipidemia [E78.5] 06/09/2023 Edema of both legs [R60.0] 12/10/2023 Hypoglycemia [E16.2] 12/10/2023 Elevated hemoglobin [D58.2] 06/09/2024 Fatigue [R53.83] 06/09/2024 Weight gain [R63.5] 06/09/2024 Screening for osteoporosis [Z13.820] 06/09/2024 Easy bruising [R23.3] 06/09/2024 Post menopausal syndrome [N95.1] 06/09/2024 Gastroesophageal reflux disease without esophag*07/28/2024 Prescriptions ordered this encounter Disp Refills Start End MONTELUKAST 10 MG TABLET 90 t* 2 07/28/2024 Route: ORAL Sig: Take 1 tablet by mouth daily at bedtime. ZOLEDRONIC ACID 5 MG/100 ML IN JASON* 07/28/2024 07/28/2026 Route: INTRAVENOUS Medications Discontinued During This Encounter Prescriptions - montelukast (SINGULAIR) 10 mg tablet (Discontinued) Take 1 tablet by mouth daily at bedtime. Letter Text Encounter Status:Closed by JAN HOLLOWAY on 07/28/24 SANJAY Observed: 07/28/2024 12:00 AM Status: COMPLETED Source: [facility] ALEJAKHLOE ([id number]) 1970 F Date Time Provider Department 07/28/24 JAN HOLLOWAY During your visit today, we recorded the following information about you: Jan Holloway DO 07/28/2024 11:00 AM Signed Patient needs prior authorization for IV Reclast She is not able to take oral bisphosphonates due to GI upset and GERD history Please complete PA. She is willing to start on rx. Order placed for treatment DO Dayana Aguilar Elizabeth, MA 07/28/2024 3:52 PM Signed Routing to Hematology since [facility] PA department only handles medication you get from pharmacy. Does not look like patient is even scheduled for IV therapy yet so this will need scheduled. ALLEGRA Gerard Pamela S, LPN 07/30/2024 1:13 PM Signed PSS please get scheduled a couple weeks out so that will trigger a Prior auth. BRANDYN Edwards Melissa 07/30/2024 3:05 PM Signed Scheduled with patient Start email sent Allergies As of Date: 07/28/2024 Noted Allergy Reaction ERYTHROMYCIN 02/12/2023 11 - Vomiting FLOXIN (OFLOXACIN) 01/19/2005 5 - Intolerance GUAIFENESIN 01/19/2005 7 - Swelling Comments: lips swell MYCINETTE (CETYLPYRIDINIUM-BENZOC*01/19/2005 5 - Intolerance SULFA (SULFONAMIDE ANTIBIOTICS) 01/19/2005 7 - Swelling Comments: face VESICARE (SOLIFENACIN SUCCINATE) 05/15/2007 7 - Swelling Comments: tingle tongue Z-PACK (AZITHROMYCIN) 03/16/2007 6 - Diarrhea 11 - Vomiting Date Reviewed: 07/28/2024 Reviewed by: Palma Hernandez LPN - Fully Assessed Prescriptions as of 07/30/2024 - montelukast (SINGULAIR) 10 mg tablet Take 1 tablet by mouth daily at bedtime. - adalimumab-adaz (HYRIMOZ) 40 mg/0.8 mL syringe Inject 0.8 mL subcutaneously every other week. - levothyroxine (LEVOXYL) 100 mcg tablet Take 1 tablet by mouth daily before breakfast. - liothyronine (CYTOMEL) 5 mcg tablet Take 3 tablets by mouth daily in the late afternoon. - estradiol (VIVELLE-DOT) 0.025 mg/24 hr patch Apply 1 Patch as directed two times a week. TWICE WEEKLY - progesterone micronized (PROMETRIUM) 100 mg capsule Take 1 capsule by mouth daily at bedtime. - estradiol [...] 1/2 tablet in the evening with dinner Facility-Administered Medications as of 07/30/2024 - zoledronic acid 5 mg PREMIX piggyback (RECLAST) Problem List As Of Date 07/28/2024 Noted Resolved Chronic cholecystitis [K81.1] 02/14/2005 03/06/2015 HYPOTHYROIDISM NOS [E03.9] 07/12/2005 03/23/2015 Other malaise and fatigue [R53.81, R53.83] 07/12/2005 03/06/2015 Myalgia and myositis, unspecified [AND5420] 07/12/2005 03/06/2015 Loss of weight [R63.4] 08/02/2005 [...] hip pain [M25.552] 06/09/2023 Dyslipidemia [E78.5] 06/09/2023 Edema of both legs [R60.0] 12/10/2023 Hypoglycemia [E16.2] 12/10/2023 Elevated hemoglobin [D58.2] 06/09/2024 Fatigue [R53.83] 06/09/2024 Weight gain [R63.5] 06/09/2024 Screening for osteoporosis [Z13.820] 06/09/2024 Easy bruising [R23.3] 06/09/2024 Post menopausal syndrome [N95.1] 06/09/2024 Gastroesophageal reflux disease without esophag*07/28/2024 Encounter Status:Closed by JOSEPH LUGO on 07/30/24 BD DXA - AXIAL SKELETON Observed: 2024 7:59 AM Status: F Source: [facility] * * *Final Report* * * DATE OF EXAM: Jul 16 2024 7:59AM WRKarely 0804 - BD DXA - AXIAL SKELETON / PROCEDURE REASON: multiple diagnoses * * * * Physician Interpretation * * * * EXAMINATION: DXA BONE DENSITOMETRY BD DXA - AXIAL SKELETON PATIENT DEMOGRAPHICS: Age: 53 years, Gender: Female SCANNER INFORMATION: DXA Model: [employer] - [employer] C [id number] Date Scanned: 07/16/2024 7:59 AM CLINICAL HISTORY: SCREENING Screening for osteoporosis Post menopausal syndrome . RISK FACTORS FOR OSTEOPOROSIS AND ASSOCIATED FRACTURES REPORTED BY THIS PATIENT: Please refer to Bone Health Questionnaire in the EMR CURRENT THERAPY: Please refer to Bone Health Questionnaire in the EMR TECHNICAL LIMITATIONS: RESULTS: Lumbar spine (L1, L2, L3, L4): 0.870 g/cm2, T-score -1.6 , Z-score -0.7 Lumbar spine: 2022 : 0.941 g/cm2 Statistically significant decrease Left Femoral Neck: 0.551 g/cm2, T-score -2.7 , Z-score -1.8 Left Femoral Neck: 2022 : 0.596 g/cm2 Statistically significant decrease Left Total Hip: 0.774 g/cm2, T-score -1.4 , Z-score -0.8 Left Total Hip: 2022 : 0.824 g/cm2 Statistically significant decrease CHANGE IS STATISTICALLY SIGNIFICANT IN THE SPINE OR HIP IF GREATER THAN OR EQUAL TO 0.04 g/cm2 VERTEBRAL FRACTURE ASSESSMENT Not performed. TRABECULAR BONE ASSESSMENT TBS not performed: IMPRESSION: THE LOWEST T-SCORE IS -2.7 IN THE LEFT HIP 1) DIAGNOSIS (based on BMD alone): OSTEOPOROSIS Caution: Medical conditions other than osteoporosis may cause low bone density, such as osteomalacia or renal osteodystrophy. Clinical correlation is necessary. 2) FRACTURE RISK (based on FRAX): 10-year absolute fracture risk: - major osteoporotic fracture = 18 % - hip fracture = 4.9 % - A diagnosis of Osteoporosis, a 10 year probability of hip fracture greater than or equal to 3% or a 10 year probability of any major osteoporosis-related fracture greater than or equal to 20% should be considered for treatment. - DXA scanner generated FRAX calculations may slightly differ from online FRAX calculations due to differences in software versions. - All recommendations and calculations are to be considered as guidelines and should not replace sound clinical judgement - Caution: Fracture risk may be increased independent of BMD in patients with corticosteroid use, age greater than 65 years, or a history of prior fragility fracture. RECOMMENDATIONS: Follow-up in 2 years or as clinically indicated. Patients that are taking corticosteroids, are transplant recipients or have hyperparathyroidism should have annual follow-up. Follow-up scans should always be done on the same machine for accurate comparison. FOR MORE INFORMATION ABOUT DIAGNOSIS AND TREATMENT: [facility] Center for Osteoporosis and Metabolic Bone Disease:? www.ccf.org/arthritis/osteo National Osteoporosis Foundation:? www.nof.org International Society of Clinical Densitometry www.iscd.org Agricultural Equipment Design Engineer: MILLY Transcribe Date/Time: Jul 18 2024 9:40A Dictated by : IRIS COLLINS MD This examination was interpreted and the report reviewed and electronically signed by: IRIS COLLINS MD on Jul 18 2024 9:43AM EST [id number] PROGRESS Observed: 07/16/2024 7:45 AM Status: COMPLETED Source: [facility] HNO ID: [id number] Author: VANDANA AVALOS RT(Matt) Service: ? Author Type: Technologist Type: Progress Notes Filed: 07/16/2024 07:56 Note Text: Radiology Service Progress Note PATIENT NAME: Khloe Flores DATE OF SERVICE: July 16, 2024 TIME: 7:44 AM PATIENT IDENTITY VERIFICATION COMPLETED USING TWO (2) IDENTIFIERS: Name and Date of confirmed by patient verbally. FALL SCREENING: Has the patient had 2 falls in the last year or 1 fall with injury or currently using an Ambulatory Assistive Device (Walker, Cane, Wheelchair, Crutches, etc.)? No PATIENT GENDER DATA: Assigned female at . status: : No status: NO. PATIENT RELEVANT IMPLANT DATA REVIEWED: Not Applicable PATIENT PRESENTS WITH AN IMPLANTABLE OR ATTACHED GUYLINE OPERATOR: No RADIOLOGY DEPARTMENT: Bone Density PERIPHERAL IV DATA: Not applicable SIGNED BY: RT Frank(R) July 16, 2024 7:44 AM VITAMIN C Collected: 7:24 AM Status: F Source: [facility] Order Comment: Specimen Type : BLOOD SPECIMEN Ordering Facility: [facility] Address: [address] [place] [address] TYPE CODE TESTS RESULT OUT OF RANGE REFERENCE UNITS LAB VITC VITAMIN C 61 23-114 umol/L Result Comment: Vitamin C co ncentrations lower than 11 umol/L indicate deficiency. Concentrations between 11 and 23 umol/L are consistent with a moderate risk of deficiency due to inadequate tissue stores. Vitamin C concentration is reported as micromoles per liter (umol/L). To convert concentration to milligrams per deciliter (mg/dL), multiply the result by 0.0176. This test was developed and its performance characteristics determined by [employer]. It has not been cleared or approved by the US Food and Drug Administration. This test was performed in a CLIA certified laboratory and is intended for clinical purposes. Performed By: [facility] [address] [place] [address] Pararescue Manager: Darwin Solano MD, PhD CLIA Number: [id number] Performed By: #### VITC #### [facility] CLIA [id number] [address] [place] [address] VIT B12 SERPL-MCNC Collected: 07/16/2024 7:24 AM Sta tus: F Source: [facility] Comment: Specimen Type : BLOOD SPECIMEN Ordering Facility: [facility] Address: [address] [place] [address] TYPE CODE TESTS RESULT OUT OF RANGE REFERENCE UNITS LAB 2131-11(LOINC) Vit B12 SerPl-mCnc >2000 High 232-1245 pg/mL Performed By: #### 9 ## ## [facility] CLIA [id number] [address] [place] [address] 25(OH)D3 SERPL-MCNC Collected: 07/17/19 7:24 AM Status: F Source: [facility] Comment: Specimen Type : BLOOD SPECIMEN Ordering Facility: [facility] Address: [address] [place] [address] TYPE CODE TESTS RESULT OUT OF RANGE REFERENCE UNITS LAB 1988-05(LOINC) 25(OH)D3 SerPl-mCnc 64.9 31.0-80.0 ng/mL Result Comment: Classificati on of 25 OH Vitamin D status: Deficiency/Insufficiency: < or = 30 ng/ml. Sufficiency/Optimal Levels: 31-80 ng/mL Toxicity: > 100 ng/mL. Test performed by chemiluminescent immunoassay. Performed By: #### 1988-05 ## ## [facility] CLIA [id number] [address] [place] [address] [place] IRON+TIBC PNL SERPL Collected: 07/16/2024 7:[address] atus: F Source: [facility] Comment: Specimen Type : BLOOD SPECIMEN Ordering Facility: [facility] Address: [address] [place] [address] TYPE CODE TESTS RESULT OUT OF RANGE REFERENCE UNITS LAB 2498-4(LOINC) Iron SerPl-mCnc 152 41-186 ug/dL LAB 2500-7(LOINC) TIBC SerPl-mCnc 310 232-386 ug/dL LAB 22135-5(LOINC) Iron/TIBC SerPl-sRto 49.0 15.0-57.0 % Performed By: #### 3024-7, 5 0190-8, 3016-3, 3051-0 #### [facility] CLIA [id number] [address] [place] [address] [place] T3FREE SERPL-MCNC Collected: 07/16/2024 7:24 AM Stat us: F Source: [facility] Order Comment: Specimen Type : BLOOD SPECIMEN Ordering Facility: [facility] Address: [address] [place] [address] TYPE CODE TESTS RESULT OUT OF RANGE REFERENCE UNITS LAB 3051-0(LOINC) T3Free SerPl-mCnc 3.6 2.3-4.1 pg/mL Performed By: #### 3024-7, 5 0190-8, 3016-3, 3051-0 #### [facility] CLIA [id number] [address] [place] [address] [place] T4 FREE SERPL-MCNC Collected: 07/16/2024 7:24 AM Sta tus: F Source: [facility] Comment: Specimen Type : BLOOD SPECIMEN Ordering Facility: [facility] Address: [address] [place] [address] TYPE CODE TESTS RESULT OUT OF RANGE REFERENCE UNITS LAB 3024-7(LOINC) T4 Free SerPl-mCnc 1.1 0.9-1.7 ng/dL Performed By: #### 3024-7, 5 0190-8, 3016-3, 3051-0 #### [facility] CLIA [id number] [address] [place], [place] [address] [facility] TSH SERPL-ACNC Collected: 7:24 AM Status: F Source: [facility] Order Comment: Specimen Type : BLOOD SPECIMEN Ordering Facility: [facility] Address: [address] [place] [address] TYPE CODE TESTS RESULT OUT OF RANGE REFERENCE UNITS LAB 3016-3(LOINC) TSH SerPl-aCnc 0.340 0.270-4.200 mIU/L Performed By: #### 3024-7, 5 0190-8, 3016-3, 3051-0 #### [facility] CLIA [id number] [address] [place] [address] PROGRESS Observed: 06/09/2024 7:53 AM Status: COMPLETED Source: [facility] HNO ID: [id number] Author: JAN HOLLOWAY, DO Service: ? Author Type: Physician Type: Progress Notes Filed: 06/09/2024 08:30 Note Text: CC: Khloe Flores is a 53 year old female who presents to the office for physical HPI: Rheumatoid arthritis, Has recently been changed from Xeljanz to Hyrimoz medication which is similar to Humira. Was on Arencia without benefit. Hypothyroidism, taking levothyroxine 112 mcg a day and cytomel 10 mcg a day, having some weight gain, palpitations sometimes. Chronic fatigue Has had some weight gain since being off TNF inhibitors. Usually will lose 5 lbs after being on steroids. Menopause disorder, taking progesterone at night and taking Estradiol patches. SHROUDMAN specialist is helping this Radha Millan She is eating a plant based diet and exercising regularly PAST MEDICAL HISTORY Diagnosis Date Acute cholecystitis [...] other (multiple myoloma) Mother Heart Father 54 [place]; Hypertension Maternal Grandmother Diabetes Maternal Grandmother Breast Cancer Maternal Grandmother other (Gallbladder Cancer) Maternal Grandfather 70 other (Lung and Brain Cancer) Paternal Grandfather 70 Seizures Daughter Resolved Seizures Son Resolved Breast Cancer Other 40 Breast Cancer Other 60 Breast Cancer Other 70 Current Outpatient prescriptions: adalimumab-adaz (HYRIMOZ) 40 mg/0.8 mL syringe Inject 0.8 mL subcutaneously every other week. levothyroxine (LEVOXYL) 100 mcg tablet Take 1 tablet by mouth daily before breakfast. liothyronine (CYTOMEL) 5 mcg tablet Take 3 tablets by mouth daily in the late afternoon. estradiol (VIVELLE-DOT) 0.025 mg/24 hr patch Apply 1 Patch as directed two times a week. TWICE WEEKLY progesterone micronized (PROMETRIUM) 100 mg capsule Take 1 capsule by mouth daily at bedtime. montelukast (SINGULAIR) 10 mg tablet Take 1 [...] [Azithromyci* Diarrhea, Vomiting ROS: See HPI PE: 06/09/24 0738 BP: 150/90 Pulse: 76 Resp: 12 Temp: 36.1 ?C (97 ?F) TempSrc: Temporal Weight: 65.8 kg (145 lb) Height: 160 cm (5' 2.99) Gen: AANDO, NAD, non-toxic appearing, Pleasant, cooperative HEENT: NT/AC, [...] soft, NT, ND, +BS, no hepatosplenomegaly MS: arthritis of joints Neuro: CN II-XII intact b/l, strength 5/5 b/l UE and LE, DTRs 2/4 UE and LE, sensation intact. Skin: warm, dry, intact, No rashes or lesions on exposed skin. Scattered nevi No edema legs, normal peripheral pulses ASSESSMENT/PLAN: 1. Well adult exam - ICD9: V70.0, ICD10: Z00.00 (primary diagnosis) - Counseled on healthy diet and regular exercise - Discussed need and benefit for weight loss. BMI 25.69 kg/(m2) 2. Hypothyroidism due to acquired atrophy of thyroid - ICD9: 244.8, 246.8, ICD10: E03.4 - Instructed patient on importance of taking on an empty stomach either first thing in the morning or at bedtime. - Decrease Synthroid dose to 0.100 mg - LEVOTHYROXINE 100 MCG TABLET - LIOTHYRONINE 5 MCG TABLET - THYROID STIMULATING HORMONE - T4 FREE/FREE THYROXINE - T3, FREE 3. Elevated hemoglobin (HCC) - ICD9: 282.7, ICD10: D58.2 Check labs as ordered - VITAMIN B12 - IRON AND TIBC - VITAMIN C - IRON AND TIBC - VITAMIN B12 - VITAMIN C 4. Fatigue, unspecified type - ICD9: 780.79, ICD10: R53.83 Check labs as ordered Easy bruising and fatigue and elevated hemoglobin - VITAMIN B12 - IRON AND TIBC - VITAMIN D 25 HYDROXY - IRON AND TIBC - VITAMIN B12 - VITAMIN C 5. Weight gain - ICD9: 783.1, ICD10: R63.5 See above, likely related to post menopause 6. Vitamin D deficiency - ICD9: 268.9, ICD10: E55.9 Labs as ordered in 1 month - VITAMIN D 25 HYDROXY - VITAMIN D 25 HYDROXY 7. Labs as ordered. - VITAMIN C - IRON AND TIBC - VITAMIN B12 - VITAMIN C 8. Screening for osteoporosis - ICD9: V82.81, ICD10: Z13.820 - DXA-AXIAL SKELETON 9. Post menopausal syndrome - ICD9: 627.9, ICD10: N95.1 - DXA-AXIAL SKELETON 10. Encounter for screening for osteoporosis - ICD9: V82.81, ICD10: Z13.820 11. Rheumatoid arthritis of multiple sites with negative rheumatoid factor (HCC) - ICD9: 714.0, ICD10: M06.09 F/u with specialist 12. Dyslipidemia - ICD9: 272.4, ICD10: E78.5 - Improving control - Counseled on healthy diet and regular exercise Jan Holloway DO To ER if develops chest pain, shortness of breath, or severe worsening of symptoms. Discussed risks, benefits, alternatives, and potential side effects of medications. Patient expressed understanding and agreed with the plan. Jan Holloway DO [address] [place] [address] HOWIEOV Observed: 06/09/2024 7:40 AM Status: COMPLETED Source: [facility] KHLOE FLORES ([id number]) 1970 F Date Time Provider Department 06/09/24 7:40 AM [facility] During your visit today, we recorded the following information about you: Temperature Pulse Respiration Blood pressure 97 degrees 76/minute 12/minute 150/90 Weight Height 65.8 kg 1.6 m Jan Holloway, 06/09/2024 8:30 AM Signed CC: Khloe Flores is a 53 year old female who presents to the office for physical HPI: Rheumatoid arthritis, Has recently been changed from Xeljanz to Hyrimoz medication which is similar to Humira. Was on Arencia without benefit. Hypothyroidism, taking levothyroxine 112 mcg a day and cytomel 10 mcg a day, having some weight gain, palpitations sometimes. Chronic fatigue Has had some weight gain since being off TNF inhibitors. Usually will lose 5 lbs after being on steroids. Menopause disorder, taking progesterone at night and taking Estradiol patches. SHROUDMAN specialist is helping this Radha Monty She is eating a plant based diet and exercising regularly PAST MEDICAL HISTORY Diagnosis Date Acute cholecystitis [...] other (multiple myoloma) Mother Heart Father 54 [place]; Hypertension Maternal Grandmother Diabetes Maternal Grandmother Breast Cancer Maternal Grandmother other (Gallbladder Cancer) Maternal Grandfather 70 other (Lung and Brain Cancer) Paternal Grandfather 70 Seizures Daughter Resolved Seizures Son Resolved Breast Cancer Other 40 Breast Cancer Other 60 Breast Cancer Other 70 Current Outpatient prescriptions: adalimumab-adaz (HYRIMOZ) 40 mg/0.8 mL syringe Inject 0.8 mL subcutaneously every other week. levothyroxine (LEVOXYL) 100 mcg tablet Take 1 tablet by mouth daily before breakfast. liothyronine (CYTOMEL) 5 mcg tablet Take 3 tablets by mouth daily in the late afternoon. estradiol (VIVELLE-DOT) 0.025 mg/24 hr patch Apply 1 Patch as directed two times a week. TWICE WEEKLY progesterone micronized (PROMETRIUM) 100 mg capsule Take 1 capsule by mouth daily at bedtime. montelukast (SINGULAIR) 10 mg tablet Take 1 [...] [Azithromyci* Diarrhea, Vomiting ROS: See HPI PE: 06/09/24 0738 BP: 150/90 Pulse: 76 Resp: 12 Temp: 36.1 ?C (97 ?F) TempSrc: Temporal Weight: 65.8 kg (145 lb) Height: 160 cm (5' 2.99) Gen: AANDO, NAD, non-toxic appearing, Pleasant, cooperative HEENT: NT/AC, [...] soft, NT, ND, +BS, no hepatosplenomegaly MS: arthritis of joints Neuro: CN II-XII intact b/l, strength 5/5 b/l UE and LE, DTRs 2/4 UE and LE, sensation intact. Skin: warm, dry, intact, No rashes or lesions on exposed skin. Scattered nevi No edema legs, normal peripheral pulses ASSESSMENT/PLAN: 1. Well adult exam - ICD9: V70.0, ICD10: Z00.00 (primary diagnosis) - Counseled on healthy diet and regular exercise - Discussed need and benefit for weight loss. BMI 25.69 kg/(m2) 2. Hypothyroidism due to acquired atrophy of thyroid - ICD9: 244.8, 246.8, ICD10: E03.4 - Instructed patient on importance of taking on an empty stomach either first thing in the morning or at bedtime. - Decrease Synthroid dose to 0.100 mg - LEVOTHYROXINE 100 MCG TABLET - LIOTHYRONINE 5 MCG TABLET - THYROID STIMULATING HORMONE - T4 FREE/FREE THYROXINE - T3, FREE 3. Elevated hemoglobin (HCC) - ICD9: 282.7, ICD10: D58.2 Check labs as ordered - VITAMIN B12 - IRON AND TIBC - VITAMIN C - IRON AND TIBC - VITAMIN B12 - VITAMIN C 4. Fatigue, unspecified type - ICD9: 780.79, ICD10: R53.83 Check labs as ordered Easy bruising and fatigue and elevated hemoglobin - VITAMIN B12 - IRON AND TIBC - VITAMIN D 25 HYDROXY - IRON AND TIBC - VITAMIN B12 - VITAMIN C 5. Weight gain - ICD9: 783.1, ICD10: R63.5 See above, likely related to post menopause 6. Vitamin D deficiency - ICD9: 268.9, ICD10: E55.9 Labs as ordered in 1 month - VITAMIN D 25 HYDROXY - VITAMIN D 25 HYDROXY 7. Labs as ordered. - VITAMIN C - IRON AND TIBC - VITAMIN B12 - VITAMIN C 8. Screening for osteoporosis - ICD9: V82.81, ICD10: Z13.820 - DXA-AXIAL SKELETON 9. Post menopausal syndrome - ICD9: 627.9, ICD10: N95.1 - DXA-AXIAL SKELETON 10. Encounter for screening for osteoporosis - ICD9: V82.81, ICD10: Z13.820 11. Rheumatoid arthritis of multiple sites with negative rheumatoid factor (HCC) - ICD9: 714.0, ICD10: M06.09 F/u with specialist 12. Dyslipidemia - ICD9: 272.4, ICD10: E78.5 - Improving control - Counseled on healthy diet and regular exercise Jan Holloway DO To ER if develops chest pain, shortness of breath, or severe worsening of symptoms. Discussed risks, benefits, alternatives, and potential side effects of medications. Patient expressed understanding and agreed with the plan. Jan Holloway DO [address] [place] [address] Jan Holloway DO 06/09/2024 8:18 AM Signed BONE MINERAL DENSITY PATIENT INSTRUCTIONS Bone mineral density testing measures the amount of calcium in certain parts of your bones. This information determines how strong your bones are. The test is used to detect osteoporosis, a disease in which the bone's mineral content and density are low, increasing a person's risk of fractures. The lumbar spine (lower back) and the hip are the skeletal sites usually examined. For the test, remember that: 1. You cannot take this test if you are . 2. Eat a normal diet on the day of the test. 3. Take your medications as you normally would. 4. DO NOT take calcium supplements (such as Tums) for 24 hours before the test. 5. On the day of the test, leave valuables (jewelry or credit cards) at home. 6. The test should be performed prior to oral, rectal or IV contrast studies, or at least 7 days after any of these studies. For the test, you may be asked to wear a hospital gown. You will lie on your back, on a padded table, in a comfortable position. Generally, you can resume your usual activities immediately. Allergies As of Date: 06/09/2024 Noted Allergy Reaction ERYTHROMYCIN 02/12/2023 11 - Vomiting FLOXIN (OFLOXACIN) 01/19/2005 5 - Intolerance GUAIFENESIN 01/19/2005 7 - Swelling Comments: lips swell MYCINETTE (CETYLPYRIDINIUM-BENZOC*01/19/2005 5 - Intolerance SULFA (SULFONAMIDE ANTIBIOTICS) 01/19/2005 7 - Swelling Comments: face VESICARE (SOLIFENACIN SUCCINATE) 05/15/2007 7 - Swelling Comments: tingle tongue Z-PACK (AZITHROMYCIN) 03/16/2007 6 - Diarrhea 11 - Vomiting Date Reviewed: 06/09/2024 Reviewed by: Palma Hernandez LPN - Fully Assessed Reason for Visit: Yearly Exam [187] Primary Visit Diagnosis:Well adult exam [Z00.00] Other Visit Diagnoses: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] Elevated hemoglobin (HCC) [D58.2] Fatigue, unspecified type [R53.83] Weight gain [R63.5] Vitamin D deficiency [E55.9] Easy bruising [R23.3] Screening for osteoporosis [Z13.820] Post menopausal syndrome [N95.1] Encounter for screening for osteoporosis [Z13.820] Rheumatoid arthritis of multiple sites with negative rheumatoid factor (HCC) [M06.09] Dyslipidemia [E78.5] Order(s):adalimumab-adaz (HYRIMOZ) 40 mg/0.8 mL syringeInject 0.8 mL subcutaneously every other week.Disp: Rfl: levothyroxine (LEVOXYL) 100 mcg tabletTake 1 tablet by mouth daily before breakfast.Disp: 90 tabletRfl: 3 liothyronine (CYTOMEL) 5 mcg tabletTake 3 tablets by mouth daily in the late afternoon.Disp: 270 tabletRfl: 3 THYROID STIMULATING HORMONE [SQTSH] Order #: [id number] FUTURE T4 FREE/FREE THYROXINE [SQFT4] Order #: [id number] FUTURE T3, FREE [SQFREET3] Order #: [id number] FUTURE DXA-AXIAL SKELETON [0309958] Order #: [id number] FUTURE IRON AND TIBC [SQIRON] Order #: [id number] FUTURE VITAMIN B12 [SQB12] Order #: [id number] FUTURE VITAMIN C [SQVITC] Order #: [id number] FUTURE VITAMIN D 25 HYDROXY [SQVITD] Order #: [id number] FUTURE Prescriptions as of 06/09/2024 - adalimumab-adaz (HYRIMOZ) 40 mg/0.8 mL syringe Inject 0.8 mL subcutaneously every other week. - levothyroxine (LEVOXYL) 100 mcg tablet Take 1 tablet by mouth daily before breakfast. - liothyronine (CYTOMEL) 5 mcg tablet Take 3 tablets by mouth daily in the late afternoon. - estradiol (VIVELLE-DOT) 0.025 mg/24 hr patch Apply 1 Patch as directed two times a week. TWICE WEEKLY - progesterone micronized (PROMETRIUM) 100 mg capsule Take 1 capsule by mouth daily at bedtime. - montelukast (SINGULAIR) 10 mg tablet Take [...] with dinner Problem List As Of Date 06/09/2024 Noted Resolved Chronic cholecystitis [K81.1] 02/14/2005 03/06/2015 HYPOTHYROIDISM NOS [E03.9] 07/12/2005 03/23/2015 Other malaise and fatigue [R53.81, R53.83] 07/12/2005 03/06/2015 Myalgia and myositis, unspecified [VHB5515] 07/12/2005 03/06/2015 Loss of weight [R63.4] 08/02/2005 [...] hip pain [M25.552] 06/09/2023 Dyslipidemia [E78.5] 06/09/2023 Edema of both legs [R60.0] 12/10/2023 Hypoglycemia [E16.2] 12/10/2023 Elevated hemoglobin (HCC) [D58.2] 06/09/2024 Fatigue [R53.83] 06/09/2024 Weight gain [R63.5] 06/09/2024 Screening for osteoporosis [Z13.820] 06/09/2024 Easy bruising [R23.3] 06/09/2024 Post menopausal syndrome [N95.1] 06/09/2024 Other instructions from your clinician: BONE MINERAL DENSITY PATIENT INSTRUCTIONS Bone mineral density testing measures the amount of calcium in certain parts of your bones. This information determines how strong your bones are. The test is used to detect osteoporosis, a disease in which the bone's mineral content and density are low, increasing a person's risk of fractures. The lumbar spine (lower back) and the hip are the skeletal sites usually examined. For the test, remember that: 1. You cannot take this test if you are . 2. Eat a normal diet on the day of the test. 3. Take your medications as you normally would. 4. DO NOT take calcium supplements (such as Tums) for 24 hours before the test. 5. On the day of the test, leave valuables (jewelry or credit cards) at home. 6. The test should be performed prior to oral, rectal or IV contrast studies, or at least 7 days after any of these studies. For the test, you may be asked to wear a hospital gown. You will lie on your back, on a padded table, in a comfortable position. Generally, you can resume your usual activities immediately. Prescriptions ordered this encounter Disp Refills Start End HYRIMOZ 40 MG/0.8 ML SUBCUTANEOUS SY* 06/09/2024 Class: Med Update Route: SUBCUTANEOUS Sig: Inject 0.8 mL subcutaneously every other week. LEVOTHYROXINE 100 MCG TABLET 90 t* 3 06/09/2024 Route: ORAL Sig: Take 1 tablet by mouth daily before breakfast. LIOTHYRONINE 5 MCG TABLET 270 * 3 06/09/2024 Route: ORAL Sig: Take 3 tablets by mouth daily in the late afternoon. Medications Discontinued During This Encounter Prescriptions - tofacitinib (XELJANZ XR) 11 mg tablet, extended release (Discontinued) - levothyroxine (LEVOXYL) 112 mcg tablet (Discontinued) Take 1 tablet by mouth once daily. Take on empty stomach. For Thyroid. - liothyronine (CYTOMEL) 5 mcg tablet (Discontinued) Take 2 tablets by mouth daily in the late afternoon. - ondansetron orally disintegrating (ZOFRAN ODT) 4 mg disintegrating tablet (Discontinued) Take 1 tablet by mouth every 8 hours as needed for nausea/vomiting. - liothyronine (CYTOMEL) 5 mcg tablet (Discontinued) Take 2 tablets by mouth daily in the late afternoon for 7 days. - turmeric/turmeric ext/pepr ext (TURMERIC-TURMERIC EXT-PEPPER ORAL) (Discontinued) Take by mouth. Encounter Status:Closed by JAN HOLLOWAY on 06/09/24 TSH SERPL-ACNC Collected: 7:19 AM Status: F Source: [facility] Order Comment: Specimen Type : BLOOD SPECIMEN Ordering Facility: [facility] Address: [address] [place] [address] TYPE CODE TESTS RESULT OUT OF RANGE REFERENCE UNITS LAB 91825-0(LOINC) TSH SerPl DL<=0.005 mIU/L-aCnc 0.214 Low 0.270-4.200 mIU/L Performed By: #### 3016-3, 3 053-6, 3024-7 #### [facility] CLIA [id number] [address] [place] [address] [place] T4 FREE SERPL-MCNC Collected: 06/01/2024 7:19 AM Sta tus: F Source: [facility] Order Comment: Specimen Type : BLOOD SPECIMEN Ordering Facility: [facility] Address: [address] [place], [place] [id number] TYPE CODE TESTS RESULT OUT OF RANGE REFERENCE UNITS LAB 3024-7(LOINC) T4 Free SerPl-mCnc 1.5 0.9-1.7 ng/dL Performed By: #### 3016-3, 3 053-6, 3024-7 #### [facility] CLIA [id number] [address] T3 SERPL-MCNC Collected: 06/01/2024 7:19 AM Status: F Source: [facility] Order Comment: Specimen Type : BLOOD SPECIMEN Ordering Facility: [facility] Address: [address] [place] [address] TYPE CODE TESTS RESULT OUT OF RANGE REFERENCE UNITS LAB 3053-6(LOINC) T3 SerPl-mCnc 87 79-165 ng/d L Performed By: #### 3016-3, 3 053-6, 3024-7 #### [facility] CLIA [id number] [address] PROGRESS Observed: 05/20/2024 10:07 AM Status: COMPLETED Source: [facility] HNO ID: [id number] Author: ?, ?, ? Service: ? Author Type: ? Type: Progress Notes Filed: 06/21/2024 03:03 Note Text: Pt scheduled for physical with PCP on 06/09/24-updated notes pt due for colonoscopy CNPTOUTREACH Observed: 05/19/2024 12:00 AM Status: COMPLETED Source: [facility] Patient Outreach (ASWSTR) KHLOE FLORES ([id number]) 1970 F Date Time Provider Department 05/19/24 JAN HOLLOWAY ASWSTR During your visit today, we recorded the following information about you: Sally Cunningham 06/21/2024 3:03 AM Signed Pt scheduled for physical with PCP on 06/09/24-updated notes pt due for colonoscopy Allergies As of Date: 05/19/2024 Noted Allergy Reaction ERYTHROMYCIN 02/12/2023 11 - Vomiting FLOXIN (OFLOXACIN) 01/19/2005 5 - Intolerance GUAIFENESIN 01/19/2005 7 - Swelling Comments: lips swell MYCINETTE (CETYLPYRIDINIUM-BENZOC*01/19/2005 5 - Intolerance SULFA (SULFONAMIDE ANTIBIOTICS) 01/19/2005 7 - Swelling Comments: face VESICARE (SOLIFENACIN SUCCINATE) 05/15/2007 7 - Swelling Comments: tingle tongue Z-PACK (AZITHROMYCIN) 03/16/2007 6 - Diarrhea 11 - Vomiting Date Reviewed: 01/16/2024 Reviewed by: Clifford Carvalho APRN.LEADER ASSEMBLER - Fully Assessed Reason for Visit: Outpatient Colonoscopy [482] Cmt: Patient is overdue for colorectal cancer screening (never done). Patient will need consult with Roc Loera CNP prior to colorectal cancer screening. Prescriptions as of 06/21/2024 - adalimumab-adaz (HYRIMOZ) 40 mg/0.8 mL syringe Inject 0.8 mL subcutaneously every other week. - levothyroxine (LEVOXYL) 100 mcg tablet Take 1 tablet by mouth daily before breakfast. - liothyronine (CYTOMEL) 5 mcg tablet Take 3 tablets by mouth daily in the late afternoon. - estradiol (VIVELLE-DOT) 0.025 mg/24 hr patch Apply 1 Patch as directed two times a week. TWICE WEEKLY - progesterone micronized (PROMETRIUM) 100 mg capsule Take 1 capsule by mouth daily at bedtime. - montelukast (SINGULAIR) 10 mg tablet Take [...] with dinner Problem List As Of Date 05/19/2024 Noted Resolved Chronic cholecystitis [K81.1] 02/14/2005 03/06/2015 HYPOTHYROIDISM NOS [E03.9] 07/12/2005 03/23/2015 Other malaise and fatigue [R53.81, R53.83] 07/12/2005 03/06/2015 Myalgia and myositis, unspecified [[id number]] 07/12/2005 03/06/2015 Loss of weight [R63.4] 08/02/2005 [...] hip pain [M25.552] 06/09/2023 Dyslipidemia [E78.5] 06/09/2023 Edema of both legs [R60.0] 12/10/2023 Hypoglycemia [E16.2] 12/10/2023 Encounter Status:Closed by EPIC, PRODUSER on 06/21/24 PAP TEST Collected: 9:17 AM Status: F Source: [facility] Order Comment: Specimen Type : FLUID SPECIMEN Ordering Facility: [facility] Address: [address] [place] [address] TYPE CODE TESTS RESULT OUT OF RANGE REFERENCE UNITS PATHOLOGY [id number] CASE REPORT Result Comment: Gynecologic Cytology Report Case: [id number] Authorizing Provider: Kendra Millan APRN.CNM Collected: 05/18/2024 09:17 AM Ordering Location: OB/Gynecology Received: 05/18/2024 10:50 AM First Screen: Nargis Sotomayor CT, ASCP Specimen: Pap Test, ThinPrep, Cervix PATHOLOGY [id number] ADEQUACY Satisfactory for interpretation. PATHOLOGY [id number] INTERPRETATIO N, CYTOLOGY, SHROUDMAN Result Comment: Negative for intraepithelial lesion or malignancy. at 0807 EST PATHOLOGY [id number] CLINICAL HISTORY, CYTOLOGY, SHROUDMAN Routine Exam Result Comment: No Menses, O ther (Specify) Ablation PATHOLOGY PAPDC PAP DISCLAIMER COMMENT The Pap Smear is a screening test for cervical cancer. False negative results occur with all screening tests, emphasizing the need for rescreening at recommended intervals, and clinical correlation. PATHOLOGY PAPIC PAP WINDOW CUTTER COMMENT This specimen has been analyzed by the ThinPrep Imaging System, an automated imaging and review system, which assists the laboratory in evaluating cells on ThinPrep Pap tests. Following automated imaging, selected tate from every slide are reviewed by a cytotechnologis tJustin PATHOLOGY [facility] Result Comment: Technical co mpolori, direct mail manager screening performed at [facility], [address] [place] [id number] CLIA# [id number] Diagnostic interpretation performed at [facility], [address] [place] [address] CLIA# [id number] Pararescue Manager: Nithin Reagan M.D. Performed By: #### [id number] # ### [facility] CLIA [id number] [address] [place] [address] HIGH RISK HUMAN PAPILLOMA VIRUS (HPV), PCR FOR DETECTION AND GENOTYPING Collected: 05/18/2024 9:17 AM Status: F Source: [facility] Order Comment: Specimen Type : FLUID SPECIMEN Ordering Facility: [facility] Address: [address] [place] [address] TYPE CODE TESTS RESULT OUT OF RANGE REFERENCE UNITS LAB 08830-3(LOINC) HPV16 Ag Spec Ql Not detected Not detected LAB 86871-2(LOINC) HPV18 Ag Spec Ql Not detected Not detected LAB 13839-4(INC) HPV HR 12 DNA Cvx Ql JUNG+probe Not detected Not detected Result Comment: High Risk HP V Other Type includes HPV types 31, 33, 35, 39, 45, 51, 52, 56, 58, 59, 66 and 68. Performed By: #### HPVHRT ## ## [facility] CLIA [id number] [address] [place] [address] OF [place] CNOV Observed: 05/18/2024 8:15 AM Status: COMPLETED Source: [facility] Office Visit (OBGYWM) ALEJAKHLOE Matt ([id number]) 1970 F Date Time Provider Department 05/18/24 8:15 AM KENDRA MILLAN During your visit today, we recorded the following information about you: Weight Height 64.4 kg 1.6 m Kendra Millan APRN.CNM 05/18/2024 1:43 PM Signed Khloe is a 53 year old who presents for an annual gynecologic exam with complaints, menopausal symptoms. Postmenopausal: Had endometrial ablation HRT use: yes Still get period: No LMP: 2015 Menopause symptoms: Hot flashes; Night sweats; Vaginal dryness. Increased since last year. Time with current partner: 35 years Number of lifetime partners: 1 control frequency: Never HPV vaccine: Yes; Last pap smear: 02/10/2020 History of abnormal pap: No Bothersome pelvic pain: No Last mammogram: 2024 pending History of abnormal mammogram: No Imvexxy for vaginal dryness and effective. Uses vaginal lubrication as well. 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 As applicable, any other physician, advance practice provider, medical student, or other health professional student that will be observing or involved in the sensitive examination for educational or training purposes was discussed with the Patient or Authorized Petrography Teacher. The Patient or Authorized Petrography Teacher has agreed to proceed with the sensitive examination. (Sensitive examination includes inspection and/or palpation of the breasts, pelvis, prostate and anorectal regions). EXAM: BP (P) 122/74 Ht 160 cm (5' 3) Wt 64.4 kg (142 lb) LMP 07/05/2015 (Exact Date) BMI 25.15 kg/m? GENERAL: pleasant, female in no apparent distress [...] external genitalia normal, normal Bartholin's glands, urethra, Arapaho's glands, no vulvar lesions, no cervical lesions, good vaginal support, physiologic discharge present, normal appearing perineal body and perianal region. Cervix stenotic, vaginal atrophy BIMANUAL: uterus normal size, shape and consistency, no adnexal masses, and non-tender RECTOVAGINAL: deferred. NEURO: alert and oriented x3,exam grossly non-focal EXTREMITIES: normal ASSESSMENT/PLAN: 1. Encounter for gynecological examination (general) (routine) without abnormal findings - ICD9: V72.31, ICD10: Z01.419 (primary diagnosis) - Completed pelvic and breast exam - Encouraged monthly BSE - Follow up for annual exam in one year. 2. Encounter for screening for human papillomavirus (HPV) - ICD9: V73.81, ICD10: Z11.51 - PAP TEST 3. Pap smear for cervical cancer screening - ICD9: V76.2, ICD10: Z12.4 - Completed pelvic and breast exam - Encouraged monthly BSE - Follow up for annual exam in one year. - PAP TEST 4. Encounter for screening mammogram for breast cancer - ICD9: V76.12, ICD10: Z12.31 - Completed pelvic and breast exam - Encouraged monthly BSE - Follow up for annual exam in one year. - KEILY SCREENING 5. Cervical stenosis (uterine cervix) - ICD9: 622.4, ICD10: N88.2 -Reviewed no endocervical component will be present on pap smear results, consistent with last pap smear. 6. Vaginal atrophy - ICD9: 627.3, ICD10: N95.2 -Will complete current vaginal administration with Imvexxy then stop 7. Vasomotor symptoms due to menopause - ICD9: 627.2, ICD10: N95.1 -Discussed risks, benefits, MOA and administration of hormone replacement therapy. -Will start Vivelle dot 0.025mg twice weekly topically and Prometirum 100mg PO once daily at bedtime. -Follow up in 4 months 1) Health maintenance: Pap done with HPV. Mammogram ordered Nutrition, exercise and routine health maintenance exams reviewed. Calcium/Vitamin D supplementation information provided. Colon cancer screening: declined TSH/lipids/glucose: followed by PCP Vitamin D: followed by PCP BMD: followed by PCP 2) Follow up one year or sooner as needed RADHA De Souza Jessica, APRN.CNM 05/18/2024 1:43 PM Signed Is Hormone replacement therapy right for you? This question has become vital for women who have reached menopause . Many women are choosing hormone replacement therapy(HRT)) to manage menopause symptoms and to guard against illnesses like osteoporosis, heart disease and Alzheimer's disease. This handout has been prepared to answer some of the questions you may have about this treatment. With the help of your physician, you can decide if HRT is right for you. What is hormone replacement therapy? Hormone replacement therapy (HRT) is a treatment program in which the hormones estrogen and progestin are taken as medications. Estrogen can be taken as pills, skin patches or vaginal creams. Progestin(synthetic forms of progesterone) are usually taken by mouth, but are available as skin patches and vaginal gels. Estrogen and progesterone are naturally produced by a woman's ovaries, glands that also store eggs and release them into the fallopian tubes. Together, estrogen and progesterone thicken the lining of the uterus in preparation for a fertilized egg. Estrogen also influences how the body uses calcium, a mineral important for building bones, and helps maintain healthy levels of cholesterol in the blood. As menopause nears, the ovaries stop most of their production of estrogen and progesterone, greatly lowering levels of these hormones throughout the body. Lowered estrogen levels cause menopause symptoms and can lead to changes in a woman's overall health. Hormone replacement therapy helps replenish lost estrogen, lessening these effects of menopause. What symptoms of menopause can estrogen relieve? Estrogen is prescribed to relieve: Hot flashes (a sudden sensation of warmth that spreads over the upper body) Vaginal dryness Dry skin, eyes or mouth Disturbed sleep (often caused by night sweats brought on by hot flashes) Irritable bladder and loss of bladder control (incontinence) How can estrogen benefit my long-term health? The most important, long-term benefit hormone replacement therapy provides is its protection against osteoporosis and coronary artery disease. Occurrences of these diseases increase after menopause. Osteoporosis, a brittle-bone disease, makes bones fragile and more likely to fracture. Estrogen plays an important role in preserving bone mass. It signals cells in the bones to stop breaking down and aids in bone formation. Coronary artery disease is the narrowing or blockage of arteries that surround the heart muscle. It results when fatty plaque builds up in the artery lyn (known as atherosclerosis). This buildup is associated with high levels of cholesterol in the blood. Estrogen helps maintain healthy levels of cholesterol in the blood. It may also improve blood flow to the heart muscle and reduce blood clotting factors. Further research may soon establish links between estrogen and other age-related illnesses. Taking estrogen may also: Improve your recent memory and may protect you from Alzheimer's disease Improve your mood and overall sense of mental well being Decrease tooth loss Reduce your risk of colon cancer Reduce the risk of macular degeneration Physicians have not yet determined how long a woman needs to take estrogen to reduce these risks, but it is generally prescribed for the remainder of life. Research has shown that hormone replacement may increase a woman's life span by as much as 3 to 5 years. Why is progestin taken? Estrogen stimulates cell growth in the endometrium, the tissue lining the uterus. These extra cells are normally shed from the uterus during menstruation. When taken after menopause, estrogen can cause an overgrowth of cells in the endometrium, a condition that can lead to endometrial cancer. Progestin reduces this risk by making the endometrium shed each month. As a result, women who take progestin may have monthly bleeding. Monthly bleeding can be lessened, and in some cases eliminated, by taking progestin and estrogen together continuously. Women who no longer have a uterus do not usually need to take progestin. What are the risks of hormone replacement therapy? Women who take hormone replacement therapy may have an increased risk for: Breast cancer (with long-term use;this is controversial and not all studies find this risk.) Gallbladder disease Blood clots (dose related) High blood pressure (in some women) What are the side effects of these medications? Estrogen can cause side effects similar to the discomforts of menstruation, including: Tender and swollen breasts Leg cramps Headaches Water retention Progestin can cause: Fatigue Decreased six drive Irritability Monthly bleeding Is HRT safe for all women? Most women can safely take HRT Your physician will carefully review your medical history and health status before prescribing this treatment. In general, HRT is not usually recommended for women who have: Active or past breast cancer Recurrent or active endometrial cancer Abnormal vaginal bleeding Recurrent or active blood clots Liver disease HRT may also not be advisable for women who have: Endometriosis Fibrocystic breast disease Uterine fibroids Gallbladder disease High risk for blood clots Migraine headaches Epilepsy How can I know if HRT is right for me? You and your doctor should thoroughly review all of the risks and benefits of HRT as well as how it can be tailored to your needs. Here are some questions you can ask yourself and discuss with your physician: Am I experiencing difficult menopause symptoms? Do I have any medical conditions or inherited risk factors that would make HRT unsafe for me? Do I have any medical conditions or inherited risk factors that would make HRT beneficial to me? Have I considered alternative treatments? Referring Provider: KENDRA MILLAN [[id number]] Allergies As of Date: 05/18/2024 Noted Allergy Reaction ERYTHROMYCIN 02/12/2023 11 - Vomiting FLOXIN (OFLOXACIN) 01/19/2005 5 - Intolerance GUAIFENESIN 01/19/2005 7 - Swelling Comments: lips swell MYCINETTE (CETYLPYRIDINIUM-BENZOC*01/19/2005 5 - Intolerance SULFA (SULFONAMIDE ANTIBIOTICS) 01/19/2005 7 - Swelling Comments: face VESICARE (SOLIFENACIN SUCCINATE) 05/15/2007 7 - Swelling Comments: tingle tongue Z-PACK (AZITHROMYCIN) 03/16/2007 6 - Diarrhea 11 - Vomiting Date Reviewed: 01/16/2024 Reviewed by: Clifford Carvalho APRN.LEADER ASSEMBLER - Fully Assessed Reason for Visit: Well Woman [[id number]] Primary Visit Diagnosis:Encounter for gynecological examination (general) (routine) without abnormal findings [Z01.419] Other Visit Diagnoses:Encounter for screening for human papillomavirus (HPV) [Z11.51] Pap smear for cervical cancer screening [Z12.4] Encounter for screening mammogram for breast cancer [Z12.31] Cervical stenosis (uterine cervix) [N88.2] Vaginal atrophy [N95.2] Vasomotor symptoms due to menopause [N95.1] Order(s):PAP TEST [[id number]] Order #: [id number]. #:[id number] KEILY SCREENING [[id number]] Order #: [id number] FUTURE estradiol (VIVELLE-DOT) 0.025 mg/24 hr patchApply 1 Patch as directed two times a week. TWICE WEEKLYDisp: 24 PatchRfl: 3 progesterone micronized (PROMETRIUM) 100 mg capsuleTake 1 capsule by mouth daily at bedtime.Disp: 90 capsuleRfl: 3 Prescriptions as of 05/18/2024 - estradiol (VIVELLE-DOT) 0.025 mg/24 hr patch Apply 1 Patch as directed two times a week. TWICE WEEKLY - progesterone micronized (PROMETRIUM) 100 mg capsule Take 1 capsule by mouth daily at bedtime. - levothyroxine (LEVOXYL) 112 mcg tablet Take 1 tablet by mouth once daily. Take on empty stomach. For Thyroid. - turmeric/turmeric ext/pepr ext (TURMERIC-TURMERIC EXT-PEPPER ORAL) Take by mouth. - liothyronine (CYTOMEL) 5 mcg tablet Take 2 tablets by mouth daily in the late afternoon. - montelukast (SINGULAIR) 10 mg tablet Take 1 tablet by mouth daily at bedtime. - liothyronine (CYTOMEL) 5 mcg tablet Take 2 tablets by mouth daily in the late afternoon for 7 days. - estradiol 10 mcg vaginal suppository maintenance pack (IMVEXXY) Use 1 Suppository vaginally two times a week. - tofacitinib (XELJANZ XR) 11 mg tablet, extended release - ondansetron orally disintegrating (ZOFRAN ODT) 4 mg disintegrating tablet Take 1 tablet by mouth every 8 hours as needed for nausea/vomiting. - cyanocobalamin, vitamin B-12, (VITAMIN B12 ORAL) [...] with dinner Problem List As Of Date 05/18/2024 Noted Resolved Chronic cholecystitis [K81.1] 02/14/2005 03/06/2015 HYPOTHYROIDISM NOS [E03.9] 07/12/2005 03/23/2015 Other malaise and fatigue [R53.81, R53.83] 07/12/2005 03/06/2015 Myalgia and myositis, unspecified [[id number]] 07/12/2005 03/06/2015 Loss of weight [R63.4] 08/02/2005 [...] hip pain [M25.552] 06/09/2023 Dyslipidemia [E78.5] 06/09/2023 Edema of both legs [R60.0] 12/10/2023 Hypoglycemia [E16.2] 12/10/2023 Other instructions from your clinician: Is Hormone replacement therapy right for you? This question has become vital for women who have reached menopause . Many women are choosing hormone replacement therapy(HRT)) to manage menopause symptoms and to guard against illnesses like osteoporosis, heart disease and Alzheimer's disease. This handout has been prepared to answer some of the questions you may have about this treatment. With the help of your physician, you can decide if HRT is right for you. What is hormone replacement therapy? Hormone replacement therapy (HRT) is a treatment program in which the hormones estrogen and progestin are taken as medications. Estrogen can be taken as pills, skin patches or vaginal creams. Progestin(synthetic forms of progesterone) are usually taken by mouth, but are available as skin patches and vaginal gels. Estrogen and progesterone are naturally produced by a woman's ovaries, glands that also store eggs and release them into the fallopian tubes. Together, estrogen and progesterone thicken the lining of the uterus in preparation for a fertilized egg. Estrogen also influences how the body uses calcium, a mineral important for building bones, and helps maintain healthy levels of cholesterol in the blood. As menopause nears, the ovaries stop most of their production of estrogen and progesterone, greatly lowering levels of these hormones throughout the body. Lowered estrogen levels cause menopause symptoms and can lead to changes in a woman's overall health. Hormone replacement therapy helps replenish lost estrogen, lessening these effects of menopause. What symptoms of menopause can estrogen relieve? Estrogen is prescribed to relieve: Hot flashes (a sudden sensation of warmth that spreads over the upper body) Vaginal dryness Dry skin, eyes or mouth Disturbed sleep (often caused by night sweats brought on by hot flashes) Irritable bladder and loss of bladder control (incontinence) How can estrogen benefit my long-term health? The most important, long-term benefit hormone replacement therapy provides is its protection against osteoporosis and coronary artery disease. Occurrences of these diseases increase after menopause. Osteoporosis, a brittle-bone disease, makes bones fragile and more likely to fracture. Estrogen plays an important role in preserving bone mass. It signals cells in the bones to stop breaking down and aids in bone formation. Coronary artery disease is the narrowing or blockage of arteries that surround the heart muscle. It results when fatty plaque builds up in the artery lyn (known as atherosclerosis). This buildup is associated with high levels of cholesterol in the blood. Estrogen helps maintain healthy levels of cholesterol in the blood. It may also improve blood flow to the heart muscle and reduce blood clotting factors. Further research may soon establish links between estrogen and other age-related illnesses. Taking estrogen may also: Improve your recent memory and may protect you from Alzheimer's disease Improve your mood and overall sense of mental well being Decrease tooth loss Reduce your risk of colon cancer Reduce the risk of macular degeneration Physicians have not yet determined how long a woman needs to take estrogen to reduce these risks, but it is generally prescribed for the remainder of life. Research has shown that hormone replacement may increase a woman's life span by as much as 3 to 5 years. Why is progestin taken? Estrogen stimulates cell growth in the endometrium, the tissue lining the uterus. These extra cells are normally shed from the uterus during menstruation. When taken after menopause, estrogen can cause an overgrowth of cells in the endometrium, a condition that can lead to endometrial cancer. Progestin reduces this risk by making the endometrium shed each month. As a result, women who take progestin may have monthly bleeding. Monthly bleeding can be lessened, and in some cases eliminated, by taking progestin and estrogen together continuously. Women who no longer have a uterus do not usually need to take progestin. What are the risks of hormone replacement therapy? Women who take hormone replacement therapy may have an increased risk for: Breast cancer (with long-term use;this is controversial and not all studies find this risk.) Gallbladder disease Blood clots (dose related) High blood pressure (in some women) What are the side effects of these medications? Estrogen can cause side effects similar to the discomforts of menstruation, including: Tender and swollen breasts Leg cramps Headaches Water retention Progestin can cause: Fatigue Decreased six drive Irritability Monthly bleeding Is HRT safe for all women? Most women can safely take HRT Your physician will carefully review your medical history and health status before prescribing this treatment. In general, HRT is not usually recommended for women who have: Active or past breast cancer Recurrent or active endometrial cancer Abnormal vaginal bleeding Recurrent or active blood clots Liver disease HRT may also not be advisable for women who have: Endometriosis Fibrocystic breast disease Uterine fibroids Gallbladder disease High risk for blood clots Migraine headaches Epilepsy How can I know if HRT is right for me? You and your doctor should thoroughly review all of the risks and benefits of HRT as well as how it can be tailored to your needs. Here are some questions you can ask yourself and discuss with your physician: Am I experiencing difficult menopause symptoms? Do I have any medical conditions or inherited risk factors that would make HRT unsafe for me? Do I have any medical conditions or inherited risk factors that would make HRT beneficial to me? Have I considered alternative treatments? Prescriptions ordered this encounter Disp Refills Start End ESTRADIOL 0.025 MG/24 HR SEMIWEEKLY * 24 P* 3 05/18/2024 05/18/2025 Route: TRANSDERM. Sig: Apply 1 Patch as directed two times a week. TWICE WEEKLY PROGESTERONE MICRONIZED 100 MG CAPSU* 90 c* 3 05/18/2024 05/18/2025 Route: ORAL Sig: Take 1 capsule by mouth daily at bedtime. Medications Discontinued During This Encounter Prescriptions - BERBERINE CHLORIDE ORAL (Discontinued) Take by mouth. Disposition: Return in 1 year (on 05/18/2025) for Annual Exam. Follow-up and Disposition History for Encounter Date Provider Department Center 05/18/2024 [id number] MILLAN [facility] Encounter Status:Closed by KENDRA MILLAN on 05/18/24 KEILY SCREENING W DOROTEO Observed: 8:11 AM Status: F Source: [facility] * * *Final Report* * * DATE OF EXAM: May 18 2024 8:11AM [id number] - KEILY SCREENING W DOROTEO / PROCEDURE REASON: multiple diagnoses * * * * Physician Interpretation * * * * RESULT: [place] [address] #[id number] - KEILY SCREENING W DOROTEO HISTORY: 53 year-old patient seen for screening. No current complaints. COMPARISON STUDIES: The present examination has been compared to prior imaging studies dated 05/29/2021 (MRI), 12/04/2021 (mammogram), 05/16/2022 (mammogram), 05/16/2023 (mammogram) and 05/27/2023 (ultrasound). MAMMOGRAM TECHNIQUE: The study was acquired using full field digital technology and interpreted from soft copy. Digital Breast Tomosynthesis (DBT) images were obtained and used to assist in the interpretation of this examination. MAMMOGRAM FINDINGS: The breasts are heterogeneously dense, which may obscure small masses. No suspicious masses, calcifications or other abnormalities are seen in either breast. There are no significant interval changes. IMPRESSION: There is no mammographic evidence of malignancy in either breast. Routine screening mammogram is recommended. Annual mammogram will be due in 1 year. BI-RADS Category 1: Negative RISK: Based on the Tyrer-Cuzick (TC) risk assessment model, this patient has a 8.9% lifetime risk of developing breast cancer, meaning they are at average risk for developing breast cancer. However, this is only an estimate based on available history provided on the patient's questionnaire. We encourage all patients to talk with their providers about these results, further recommendations for managing breast health, and appropriate supplemental screening options if the patient has dense breast tissue. Interpreting Radiologist: Lizette Le M.D. Electronically signed on: 05/18/2024 Agricultural Equipment Design Engineer: MILAN Transcribe Date/Time: May 18 2024 7:30A Dictated by: LIZETTE LE MD This examination was interpreted and the report reviewed and electronically signed by: LIZETTE LE MD on May 18 2024 8:12AM EST [id number] PROGRESS Observed: 05/18/2024 7:47 AM Status: COMPLETED Source: [facility] HNO ID: [id number] Author: KENDRA MILLAN APRN.MERRICK Service: ? Author Type: Rod Finisher Type: Progress Notes Filed: 05/18/2024 13:43 Note Text: Khloe is a 53 year old who presents for an annual gynecologic exam with complaints, menopausal symptoms. Postmenopausal: Had endometrial ablation HRT use: yes Still get period: No LMP: 2015 Menopause symptoms: Hot flashes; Night sweats; Vaginal dryness. Increased since last year. Time with current partner: 35 years Number of lifetime partners: 1 control frequency: Never HPV vaccine: Yes; Last pap smear: 02/10/2020 History of abnormal pap: No Bothersome pelvic pain: No Last mammogram: 2024 pending History of abnormal mammogram: No Imvexxy for vaginal dryness and effective. Uses vaginal lubrication as well. 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 History Comments: Sexual Activity: Yes; Male; HUSBANDS [...] W/CHOLANGIOGRAPHY 02/27/2005 KAREN 08/01/2015 HYSTEROSCOPY, ABLATION ENDOMETRIAL NOVASURE PAST SURGICAL HISTORY OF MOLE REMOVAL ON BACK X 2- benign PAST SURGICAL HISTORY OF wisdom teeth FAMILY HISTORY Problem Relation Age of Onset Cancer Mother blood- multiple mylomia other (multiple myoloma) Mother Heart Father 54 [place]; Hypertension Maternal Grandmother Diabetes Maternal Grandmother Breast [...] skin retraction Allergies and current medication updated:Yes SENSITIVE EXAM: The sensitive examination was discussed with the Patient or Patient's Authorized Petrography Teacher. As applicable, any other physician, advance practice provider, medical student, or other health professional student that will be observing or involved in the sensitive examination for educational or training purposes was discussed with the Patient or Authorized Petrography Teacher. The Patient or Authorized Petrography Teacher has agreed to proceed with the sensitive examination. (Sensitive examination includes inspection and/or palpation of the breasts, pelvis, prostate and anorectal regions). EXAM: BP (P) 122/74 Ht 160 cm (5' 3) Wt 64.4 kg (142 lb) LMP 07/05/2015 (Exact Date) BMI 25.15 kg/m? GENERAL: pleasant, female in no apparent distress [...] external genitalia normal, normal Bartholin's glands, urethra, Arapaho's glands, no vulvar lesions, no cervical lesions, good vaginal support, physiologic discharge present, normal appearing perineal body and perianal region. Cervix stenotic, vaginal atrophy BIMANUAL: uterus normal size, shape and consistency, no adnexal masses, and non-tender RECTOVAGINAL: deferred. NEURO: alert and oriented x3,exam grossly non-focal EXTREMITIES: normal ASSESSMENT/PLAN: 1. Encounter for gynecological examination (general) (routine) without abnormal findings - ICD9: V72.31, ICD10: Z01.419 (primary diagnosis) - Completed pelvic and breast exam - Encouraged monthly BSE - Follow up for annual exam in one year. 2. Encounter for screening for human papillomavirus (HPV) - ICD9: V73.81, ICD10: Z11.51 - PAP TEST 3. Pap smear for cervical cancer screening - ICD9: V76.2, ICD10: Z12.4 - Completed pelvic and breast exam - Encouraged monthly BSE - Follow up for annual exam in one year. - PAP TEST 4. Encounter for screening mammogram for breast cancer - ICD9: V76.12, ICD10: Z12.31 - Completed pelvic and breast exam - Encouraged monthly BSE - Follow up for annual exam in one year. - KEILY SCREENING 5. Cervical stenosis (uterine cervix) - ICD9: 622.4, ICD10: N88.2 -Reviewed no endocervical component will be present on pap smear results, consistent with last pap smear. 6. Vaginal atrophy - ICD9: 627.3, ICD10: N95.2 -Will complete current vaginal administration with Imvexxy then stop 7. Vasomotor symptoms due to menopause - ICD9: 627.2, ICD10: N95.1 -Discussed risks, benefits, MOA and administration of hormone replacement therapy. -Will start Vivelle dot 0.025mg twice weekly topically and Prometirum 100mg PO once daily at bedtime. -Follow up in 4 months 1) Health maintenance: Pap done with HPV. Mammogram ordered Nutrition, exercise and routine health maintenance exams reviewed. Calcium/Vitamin D supplementation information provided. Colon cancer screening: declined TSH/lipids/glucose: followed by PCP Vitamin D: followed by PCP BMD: followed by PCP 2) Follow up one year or sooner as needed Kendra Millan APRN.CNM PROGRESS Observed: 05/18/2024 7:30 AM Status: COMPLETED Source: [facility] ID: [id number] Author: JOSE ARTEAGA Mammo Tech Service: ? Author Type: Horse Rancher Type: Progress Notes Filed: 05/18/2024 07:56 Note Text: Radiology Service Progress Note PATIENT NAME: Khloe Flores DATE OF SERVICE: May 18, 2024 TIME: 7:56 AM PATIENT IDENTITY VERIFICATION COMPLETED USING TWO (2) IDENTIFIERS: Name and Date of confirmed by patient verbally. FALL SCREENING: Has the patient had 2 falls in the last year or 1 fall with injury or currently using an Ambulatory Assistive Device (Walker, Cane, Wheelchair, Crutches, etc.)? No PATIENT GENDER DATA: Assigned female at . status: : No status: NO. PATIENT RELEVANT IMPLANT DATA REVIEWED: Not Applicable PATIENT PRESENTS WITH AN IMPLANTABLE OR ATTACHED GUYLINE OPERATOR: No RADIOLOGY DEPARTMENT: Mammography PERIPHERAL IV DATA: Not applicable SIGNED BY: Krishan Becerril May 18, 2024 7:56 AM CNPN Observed: 05/18/2024 12:00 AM Status: COMPLETED Source: [facility] Telephone (OBGYWM) KHLOE FLORES ([id number]) 1970 F Date Time Provider Department 05/18/24 KENDRA MILLAN [facility]BGYWRose During your visit today, we recorded the following information about you: Sheela Lee 05/18/2024 8:55 AM Signed Patient requesting Mammogram for next year, appt has been scheduled order will just need to be attached. Thank you Nallely Malagon RN 05/18/2024 10:21 AM Signed Mamm with DOROTEO order pending. IAIN Saucedo Jessica, APRN.CNM 05/18/2024 1:04 PM Signed Order signed. Kendra Millan APRN.CNM Allergies As of Date: 05/18/2024 Noted Allergy Reaction ERYTHROMYCIN 02/12/2023 11 - Vomiting FLOXIN (OFLOXACIN) 01/19/2005 5 - Intolerance GUAIFENESIN 01/19/2005 7 - Swelling Comments: lips swell MYCINETTE (CETYLPYRIDINIUM-BENZOC*01/19/2005 5 - Intolerance SULFA (SULFONAMIDE ANTIBIOTICS) 01/19/2005 7 - Swelling Comments: face VESICARE (SOLIFENACIN SUCCINATE) 05/15/2007 7 - Swelling Comments: tingle tongue Z-PACK (AZITHROMYCIN) 03/16/2007 6 - Diarrhea 11 - Vomiting Date Reviewed: 01/16/2024 Reviewed by: Clifford Carvalho APRN.LEADER ASSEMBLER - Fully Assessed Primary Visit Diagnosis:Encounter for screening mammogram for malignant neoplasm of breast [Z12.31] Order(s):[facility] SCREENING W DOROTEO [[id number]] Order #: [id number] FUTURE Prescriptions as of 05/18/2024 - estradiol (VIVELLE-DOT) 0.025 mg/24 hr patch Apply 1 Patch as directed two times a week. TWICE WEEKLY - progesterone micronized (PROMETRIUM) 100 mg capsule Take 1 capsule by mouth daily at bedtime. - levothyroxine (LEVOXYL) 112 mcg tablet Take 1 tablet by mouth once daily. Take on empty stomach. For Thyroid. - turmeric/turmeric ext/pepr ext (TURMERIC-TURMERIC EXT-PEPPER ORAL) Take by mouth. - liothyronine (CYTOMEL) 5 mcg tablet Take 2 tablets by mouth daily in the late afternoon. - montelukast (SINGULAIR) 10 mg tablet Take 1 tablet by mouth daily at bedtime. - liothyronine (CYTOMEL) 5 mcg tablet Take 2 tablets by mouth daily in the late afternoon for 7 days. - estradiol 10 mcg vaginal suppository maintenance pack (IMVEXXY) Use 1 Suppository vaginally two times a week. - tofacitinib (XELJANZ XR) 11 mg tablet, extended release - ondansetron orally disintegrating (ZOFRAN ODT) 4 mg disintegrating tablet Take 1 tablet by mouth every 8 hours as needed for nausea/vomiting. - cyanocobalamin, vitamin B-12, (VITAMIN B12 ORAL) [...] with dinner Problem List As Of Date 05/18/2024 Noted Resolved Chronic cholecystitis [K81.1] 02/14/2005 03/06/2015 HYPOTHYROIDISM NOS [E03.9] 07/12/2005 03/23/2015 Other malaise and fatigue [R53.81, R53.83] 07/12/2005 03/06/2015 Myalgia and myositis, unspecified [AZX0028] 07/12/2005 03/06/2015 Loss of weight [R63.4] 08/02/2005 [...] hip pain [M25.552] 06/09/2023 Dyslipidemia [E78.5] 06/09/2023 Edema of both legs [R60.0] 12/10/2023 Hypoglycemia [E16.2] 12/10/2023 Encounter Status:Closed by NALLELY MALAGON on 05/18/24 PROGRESS Observed: 03/19/2024 8:41 AM Status: COMPLETED Source: [facility] HNO ID: [id number] Author: ELLYN KAMARA APRN.LEADER ASSEMBLER Service: ? Author Type: Nurse Practitioner Type: Progress Notes Filed: 03/19/2024 08:57 Note Text: Telemedicine Evaluation for an Illness MyChart Zoom Video Visit was used for evaluation of this patient. I have communicated my name and active licensure. The patient's identity and physical location were verified at the time of this visit. Either the patient or their legal congressional representative has been informed of the risks and benefits of -- and alternatives to -- treatment through a remote evaluation and consents to proceed with the evaluation remotely. SUBJECTIVE Khloe Flores is a 53 year old female who presents with 3 weeks of symptoms that are worsening. Symptoms include: Fever (>=100.4F): No or Chills: No Cough: Yes Shortness of breath: No or Difficulty breathing: No Fatigue: No Muscle aches: No Headache: No New loss of smell or taste: No Sore throat: No Nasal congestion: Yes or Rhinorrhea: Yes Nausea: No or Vomiting: No Diarrhea: No Reports over the last couple of days she noticed worsening sinus pressure and pain to her right side. OTC meds/remedies that patient has tried: pseudoephedrine and saline, flonase. High risk category assessment On immunosuppressive therapy Exposures: Sick contacts? Yes Family or close contacts with confirmed/probable COVID-19 in last 14 days? No She reports that she has never smoked. She has never used smokeless tobacco. OBJECTIVE VIDEO EXAM (if available) GENERAL: well appearing, alert, in no acute distress HEENT: no conjunctival injection, pupils equal, moist mucous membranes, and sinuses tender to self-palpation PULMONARY: breathing comfortably on room air , no coughing noted, and no wheezing noted ASSESSMENT/PLAN (J01.90) Acute rhinosinusitis (primary encounter diagnosis) (J06.9) Viral upper respiratory infection (Z87.42) History of vaginitis Symptoms are most consistent with viral upper respiratory infection that given duration and ongoing symptoms potentially developed a secondary ABRS. As a result, feel reasonable to try antibiotics and recommended continued symptomatic treatments also. Discussed that antibiotics pose serious risk of adverse effects and not clear benefits outweigh these risks. Patient understood and still wanted to try them. Patient also asking for Fluconazole since antibiotics many times cause vaginal candidiasis for her. She has done this before so she plans on stopping her Methotrexate and Xeljanz, and will space out the anti-infectives from her Plaquenil. Reinforced this is unlikely to be a bacterial infection and adjusting all of these medications and taking these risks if very likely unnecessary and would expect this to go away on its own. She reports she has discussed this with the pharmacist and that is the plan she will use this time and she hasn't had an adverse reaction in the past, though I explained I don't think that lowers her risk in the future. While she mentioned it, I also encouraged her to discuss this with Rheum and really don't think messing with her regimen for her chronic condition it worth taking an antibiotic for a condition that likely is not bacterial and either way is considered self-limiting. Ellyn Kamara, JOVITA.JORDAN - Discussed symptom monitoring and supportive care - Red flag symptoms requiring follow up discussed JORDANN Observed: 03/02/2024 12:00 AM Status: COMPLETED Source: [facility] Telephone (FAMPWS) KHLOE FLORES ([id number]) 1970 F Date Time Provider Department 03/02/24 JESSICA MAYA During your visit today, we recorded the following information about you: Jessica Maya PA-C 03/02/2024 11:35 AM Signed Please let patient know that her labs all looked good. Her TSH was just slightly low, but T3 and T4 were within normal range. Continue with her current dose, can repeat in 2-3 months to monitor. Jessica Maya PA-C 03/02/2024 Tsering Frausto MA 03/02/2024 1:35 PM Signed Sent to pt via [employer] message Tsering Frausto MA Allergies As of Date: 03/02/2024 Noted Allergy Reaction ERYTHROMYCIN 02/12/2023 11 - Vomiting FLOXIN (OFLOXACIN) 01/19/2005 5 - Intolerance GUAIFENESIN 01/19/2005 7 - Swelling Comments: lips swell MYCINETTE (CETYLPYRIDINIUM-BENZOC*01/19/2005 5 - Intolerance SULFA (SULFONAMIDE ANTIBIOTICS) 01/19/2005 7 - Swelling Comments: face VESICARE (SOLIFENACIN SUCCINATE) 05/15/2007 7 - Swelling Comments: tingle tongue Z-PACK (AZITHROMYCIN) 03/16/2007 6 - Diarrhea 11 - Vomiting Date Reviewed: 01/16/2024 Reviewed by: Clifford Carvalho APRN.LEADER ASSEMBLER - Fully Assessed Primary Visit Diagnosis: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] Order(s):T4 FREE/FREE THYROXINE [SQFT4] Order #: [id number] FUTURE THYROID STIMULATING HORMONE [SQTSH] Order #: [id number] FUTURE T3 [SQT3] Order #: [id number] FUTURE Prescriptions as of 03/02/2024 - fluconazole (DIFLUCAN) 150 mg tablet Take one if yeast develops then may repeat in three days - turmeric/turmeric ext/pepr ext (TURMERIC-TURMERIC EXT-PEPPER ORAL) Take by mouth. - BERBERINE CHLORIDE ORAL Take by mouth. - levothyroxine (LEVOXYL) 112 mcg tablet Take 1 tablet by mouth once daily. Take on empty stomach. For Thyroid. - liothyronine (CYTOMEL) 5 mcg tablet Take 2 tablets by mouth daily in the late afternoon. - montelukast (SINGULAIR) 10 mg tablet Take 1 tablet by mouth daily at bedtime. - liothyronine (CYTOMEL) 5 mcg tablet Take 2 tablets by mouth daily in the late afternoon for 7 days. - estradiol 10 mcg vaginal suppository maintenance pack (IMVEXXY) Use 1 Suppository vaginally two times a week. - tofacitinib (XELJANZ XR) 11 mg tablet, extended release - ondansetron orally disintegrating (ZOFRAN ODT) 4 mg disintegrating tablet Take 1 tablet by mouth every 8 hours as needed for nausea/vomiting. - cyanocobalamin, vitamin B-12, (VITAMIN B12 ORAL) [...] with dinner Problem List As Of Date 03/02/2024 Noted Resolved Chronic cholecystitis [K81.1] 02/14/2005 03/06/2015 HYPOTHYROIDISM NOS [E03.9] 07/12/2005 03/23/2015 Other malaise and fatigue [R53.81, R53.83] 07/12/2005 03/06/2015 Myalgia and myositis, unspecified [YXA1579] 07/12/2005 03/06/2015 Loss of weight [R63.4] 08/02/2005 [...] hip pain [M25.552] 06/09/2023 Dyslipidemia [E78.5] 06/09/2023 Edema of both legs [R60.0] 12/10/2023 Hypoglycemia [E16.2] 12/10/2023 Encounter Status:Closed by TSERING FRAUSTO on 03/02/24 DEPRECATED HGB A1C BLD Collected: 02/08 7:28 AM Status: F Source: [facility] Order Comment: Specimen Type : BLOOD SPECIMEN Ordering Facility: [facility] Address: [address] [place] [address] TYPE CODE TESTS RESULT OUT OF RANGE REFERENCE UNITS LAB 4548-4(LOINC) HbA1c MFr Bld 5.1 4.3-5.6 % Result Comment: [employer] guidelines indicate that patients with HgbA1c in the range 5.7-6.4% are at increased risk for development of diabetes, and intervention by lifestyle modification may be beneficial. HgbA1c greater or equal to 6.5% is considered diagnostic of diabetes. LAB 91536-4(LOINC) Est. average glucose Bld gHb Est-mCnc 100 mg/dL Result Comment: eAG: (Estima cammie average glucose) is a calculated value from HgbA1c and is congressional representative of the average blood glucose level in the last 2-3 month period. Performed By: #### 11987-1 # ### [facility] CLIA [id number] [address] [place] [address] [place] T3FREE [facility] Collected: 02/09/2024 7:28 AM Stat us: F Source: [facility] [facility] Order Comment: Specimen Type : BLOOD SPECIMEN Ordering Facility: [facility] Address: [address] [place] [address] TYPE CODE TESTS RESULT OUT OF RANGE REFERENCE UNITS LAB 3051-0(LOINC) T3Free SerPl-mCnc 4.0 2.3-4.1 pg/mL Performed By: #### 3016-3, 1 988-5, 3051-0, 3024-7 #### [facility] CLIA [id number] [address] [place] [address] [place] T4 FREE SERPL-MCNC Collected: 02/09/2024 7:28 AM Sta tus: F Source: [facility] Order Comment: Specimen Type : BLOOD SPECIMEN Ordering Facility: [facility] Address: [address] [place] [address] TYPE CODE TESTS RESULT OUT OF RANGE REFERENCE UNITS LAB 3024-7(LOINC) T4 Free SerPl-mCnc 1.4 0.9-1.7 ng/dL Performed By: #### 3016-3, 1 988-5, 3051-0, 3024-7 #### [facility] CLIA [id number] [address] [place] [address] [place] TSH SERPL-ACNC Collected: 7:28 AM Status: F Source: [facility] Order Comment: Specimen Type : BLOOD SPECIMEN Ordering Facility: [facility] Address: [address] [place] [address] TYPE CODE TESTS RESULT OUT OF RANGE REFERENCE UNITS LAB 3016-3(LOINC) TSH SerPl-aCnc 0.208 Low 0.270-4.200 mIU/L Performed By: #### 3016-3, 1 988-5, 3051-0, 3024-7 #### [facility] CLIA [id number] [address] [place] [address] [place] CRP SERPL-MCNC Collected: 02/09/2024 7:28 AM Status: F Source: [facility] Order Comment: Specimen Type : BLOOD SPECIMEN Ordering Facility: [facility] Address: [address] [place] [address] TYPE CODE TESTS RESULT OUT OF RANGE REFERENCE UNITS LAB 1988-5(LOINC) CRP SerPl-mCnc <0.3 <0.9 mg/dL Performed By: #### 3016-3, 1 988-5, 3051-0, 3024-7 #### [facility] CLIA [id number] [address] [place] [address] [place] CORTIS SERPL-MCNC Collected: 02/09/2024 7:28 AM Stat us: F Source: [facility] Order Comment: Specimen Type : BLOOD SPECIMEN Ordering Facility: [facility] Address: [address] [place] [address] TYPE CODE TESTS RESULT OUT OF RANGE REFERENCE UNITS LAB 2142-6(LOINC) Cortis SerPl-mCnc 12.4 4.8-19.5 ug/dL Result Comment: Provided ref erence range is from 6-10 AM sample collection time. Cortisol Reference Range: 6-10 AM = 4.8-19.5 ug/dL, 4-8 PM = 2.5-11.9 ug/dL Performed By: #### 2143-6 ## ## [facility] CLIA [id number] [address] [place], [place] [address] [place] PROGRESS Observed: 01/16/2024 10:50 AM Status: COMPLETED Source: [facility] HNO ID: [id number] Author: CLIFFORD CARVALHO APRN.LEADER ASSEMBLER Service: ? Author Type: Nurse Practitioner Type: Progress Notes Filed: 01/16/2024 11:05 Note Text: [facility] ON[facility] NOTE . Verified Khloe's name and and explained my name, credentials and limitations of the Virtual visit requested today. Subjective Khloe Flores is a 53 year old year old who presents to [facility] care online today with complaint of Sinusitis x [...] understanding and agreeable with treatment plan. Clifford Carvalho APRN LEADER ASSEMBLER 01/16/2024 10:50 AM ALLERGIES DATE TYPE / CODE NAME / CODE REACTION SEVERITY SOURCE 08/26/2024 DRUG INGREDI/691996 003(SNOMED CT) CILANTRO ANAPHYLAXIS High [facility] 02/12/2023 DRUG/592020881 (SNOMED CT) ERYTHROMYCIN Vomiting [facility] 05/15/2007 DRUG INGREDI/629536 003(SNOMED CT) SOLIFENACIN SUCCINATE SWELLING [facility] 03/16/2007 DRUG INGREDI/686818 003(SNOMED CT) AZITHROMYCIN DIARRHEA [facility] 01/19/2005 DRUG INGREDI/306439 003(SNOMED CT) OFLOXACIN INTOLERANCE [facility] 01/19/2005 DRUG INGREDI/515517 003(SNOMED CT) GUAIFENESIN SWELLING [facility] 01/19/2005 DRUG/461581123 (SNOMED CT) CETYLPYRIDINIUM-BENZOC NORAH INTOLERANCE [facility] 01/19/2005 Drug Class/15999104 3(SNOMED CT) SULFA (SULFONAMIDE ANTIBIOTICS) SWELLING [facility] ENCOUNTERS ADMIT/DISCHARGE ACCOUNT NUMBER ADMITTING ENCOUNTER CLASS LOC ATION SOURCE 12/21/2024/ [id number] [facility] HospitalBuild ing:W[facility] 12/06/2024/ [id number] [facility] HospitalBuild ing:[facility] 11/23/2024 [id number] [facility] 10/11/2024/ [id number] [facility] HospitalBuild ing:WOFM [facility] 09/10/2024/ [id number] [facility] HospitalBuild ing:WMOB [facility] 08/26/2024/ [id number] [facility] [id number] [facility] HospitalBuild ing:[facility] 07/28/2024/ [id number] [id number] [facility]/16[facility]/ [id number] [facility] HospitalBuild ing:[address] [place] [address] 06/09/2024/ [id number] [facility] 06/01/2024/ [id number] [facility] HospitalBuild ing:W[facility]2 [facility] 05/18/2024/ [id number] [facility] HospitalBuild ing:[facility] 05/18/2024/ [id number] [facility] HospitalBuild ing:[facility]M [facility] 03/19/2024/ [id number] [facility] HospitalBuild ing:[facility] 02/09/2024/ [id number] [facility] HospitalBuild ing:[facility]2 [facility] 01/16/2024/ [id number] [facility] HospitalBuild ing:[facility] PAYERS ENCOUNTER GUARANTOR PAYER SUBSCRIBER SOURCE 12/21/2024 Primary Insurance:MMO SUPERMED PPOPolicy Number: [id number] ve Date:6277-69-99Hjap Name:Karely GONZALEZB: [id number] [address] 12/06/2024 Primary Insurance:MMO SUPERMED PPOPolicy Number: [id number] ve Date:1258-49-09Xmac Name:Karely FLORESB: [id number] [address] 11/23/2024 Primary Insurance:MMO SUPERMED PPOPolicy Number: [id number] ve Date:7794-11-46Cbit Name:Karely FLORESB: [id number] [place] [id number] [facility] 10/11/2024 Primary Insurance:MMO SUPERMED PPOPolicy Number: [id number] ve Date:4975-72-84Pkrx Name:Karely FLORESB: [id number] [address] 09/10/2024 Primary Insurance:MMO SUPERMED PPOPolicy Number: [id number] ve Date:7542-17-00Rosv Name:Karely FLORESB: [id number] [address] 08/26/2024 Primary Insurance:MMO SUPERMED PPOPolicy Number: [id number] ve Date:7396-94-41Mlnv Name:Karely GONZALEZB: [id number] [place] [id number] [facility] 08/11/2024 Primary Insurance:MMO SUPERMED PPOPolicy Number: [id number] ve Date:8434-06-16Jpyc Name:Karely FLORESDOB: [id number] 07/28/2024 Primary Insurance:MMO SUPERMED PPOPolicy Number: [id number] ve Date:4172-30-65Mnxk Name:Karely GONZALEZB: [id number] [address] 07/16/2024 Primary Insurance:MMO SUPERMED PPOPolicy Number: [id number] ve Date:6512-09-32Ouxm Name:Karely GONZALEZB: [id number] [address] 07/16/2024 Primary Insurance:MMO SUPERMED PPOPolicy Number: [id number] ve Date:8030-24-78Clvz Name:Karely GONZALEZB: [id number] [place] [id number] [facility] 06/09/2024 Primary Insurance:MMO SUPERMED PPOPolicy Number: [id number] ve Date:4469-15-95Qfka Name:Karely FLORESDOB: [id number] 06/01/2024 Primary Insurance:MMO SUPERMED PPOPolicy Number: [id number] ve Date:7338-46-74Ugpz Name:Karely FLORESDOB: [id number] [place] [id number] [facility] 05/18/2024 Primary Insurance:MMO SUPERMED PPOPolicy Number: [id number] ve Date:8957-30-62Jdxv Name:Karely FLORESDOB: [id number] [place] [id number] [facility] 05/18/2024 Primary Insurance:MMO SUPERMED PPOPolicy Number: [id number] Date:9414-24-71Emhk Name:Karely FLORESDOB: [id number] [place] [id number] [facility] 03/19/2024 Primary Insurance:MMO SUPERMED PPOPolicy Number: [id number] ve Date:1766-49-13Ewsc Name:Karely FLORESDOB: [id number] [place] [id number] [facility] 02/09/2024 Primary Insurance:MMO SUPERMED PPOPolicy Number: [id number] ve Date:0268-09-50Haik Name:Karely FLORESDOB: [id number] [place] [id number] [facility] 01/16/2024 Primary Insurance:MMO SUPERMED PPOPolicy Number: [id number] Date:8497-78-87Vypq Name:Karely FLORESDOB: [id number] [place] [id number] [facility]
--- OUTSIDE RECORDS SUMMARY | 2024-12-21 07:06 | XMS RPT_ITS ---
Author Name Auto Generated Organization OHIP Care Team Providers Care Malt Loader Name Role Phone PODLOGARCLAUDIA Referring Unavailable HOLLOWAY, [...] DATE TYPE CONDITION / CODE ATTENDING STATUS [facility] 06/09/2023 Active Dyslipidemia / E78.5(ICD-10) NA Active [facility] 11/23/2024 Active Pneumonia of bot h lungs due to infectious organism, unspecified part of lung / J18.9(ICD-10) NA Active [facility] 10/11/2024 Active Hospital dischar ge follow-up / Z09(ICD-10) PODLOGAR, CLAUDIA Active [facility] 10/11/2024 Active Hyponatremia / E87.1(ICD-10) PODLOGAR, CLAUDIA Active [facility] 10/11/2024 Active Sjogren's syndro me, with unspecified organ involvement (HCC) / M35.00(ICD-10) PODLOGAR, CLAUDIA Active [facility] 10/11/2024 Active Rheumatoid arthr itis, involving unspecified site, unspecified whether rheumatoid factor present (HCC) / M06.9(ICD-10) PODLOGAR, CLAUDIA Active [facility] 09/10/2024 Active Vasomotor sympto ms due to menopause / N95.1(ICD-10) KENDRA MILLAN Active [facility] 08/06/2024 Active Age-related oste oporosis without current pathological fracture / M81.0(ICD-10) NA Active [facility] 08/11/2024 Active Acute rhinosinus itis / J01.90(ICD-10) RINKU ROJAS Active [facility] 08/11/2024 Active Antibiotic-induc ed yeast infection / B37.9(ICD-10) RINKU ROJAS Active [facility] 08/11/2024 Active Antibiotic-induc ed yeast infection / T36.95XA(ICD-10) RINKU ROJAS Active [facility] 07/28/2024 Active Gastroesophageal reflux disease without esophagitis / K21.9(ICD-10) JAN HOLLOWAY Active [facility] 01/21/2007 Active Sicca syndrome ( HCC) / M35.00(ICD-10) JAN HOLLOWAY Active [facility] 07/28/2024 Active Other osteoporos is without current pathological fracture / M81.8(ICD-10) JAN HOLLOWAY Active [facility] 06/09/2024 Active Post menopausal syndrome / N95.1(ICD-10) NA Active [facility] 06/09/2024 Active Screening for osteoporosis / Z13.820(ICD-10) NA Active [facility] 06/09/2024 Active Easy bruising / R23.3(ICD-10) NA Active [facility] 06/09/2024 Active Fatigue, unspeci fied type / R53.83(ICD-10) Active [facility] 06/09/2024 Active Elevated hemoglo bin / D58.2(ICD-10) NA Active [facility] 06/09/2023 Active Vitamin D defici ency / E55.9(ICD-10) NA Active [facility] 03/23/2015 Active Hypothyroidism d ue to acquired atrophy of thyroid / E03.4(ICD-10) NA Active [facility] 05/16/2023 Active Encounter for sc reening mammogram for breast cancer / Z12.31(ICD-10) Active [facility] 05/18/2024 Active Encounter for gynecological examination (general) (routine) without abnormal findings / Z01.419(ICD-10) Active [facility] 12/10/2023 Active Hypoglycemia / E16.2(ICD-10) Active [facility] 06/10/2022 Active Rheumatoid arthr itis of multiple sites with negative rheumatoid factor (HCC) / M06.09(ICD-10) NA Active [facility] PROCEDURES No Procedure Records Found RESULTS LIPID 1995 PNL SERPL Collected: 025 7:10 AM Status: F Source: [facility] Order Comment: Specimen Type : BLOOD SPECIMEN Ordering Facility: [facility] Address: [address] [place] [address] TYPE CODE TESTS RESULT OUT OF RANGE [...] is calculated using the Mcclain-NIH equation. LAB 17373-2(LOINC) NonHDLc SerPl-mCnc 117 <130 mg/dL Result Comment: <130 mg/dL, Optimal 130-159 mg/dL, Near optimal/above optimal 160-189 mg/dL, Borderline high 190-219 mg/dL, High >219 mg/dL, Very high Secondary prevention optimal non HDL Cholesterol levels are recommended to be <100 mg/dL LAB 26522-4(LOINC) VLDLc SerPl Calc-mCnc 15 <30 mg/dL LAB 9830-1(LOINC) Cholest/HDL c SerPl 2.70 <5.10 LAB 99552-5(LOINC) LDLc/HDLc SerPl 1.46 <2.54 Result Comment: Reference: 1. National Cholesterol Education Program ATP III Guideline At-A-Glance Quick Desk Reference: National Heart, Lung, and Blood [place]. National Institutes of Health. 2001: NIH Publication No. 01-3305. 2. An International Atherosclerosis Society position paper: global recommendations for the management of dyslipidemia: executive summary, Atherosclerosis. 2014: 232(2):410-413. LAB FT FASTING TIME 12 hrs Performed By: #### 27731-7 # ### [facility] CLIA [id number] [address] [facility] [address] [place] [id number] [place] [facility] CLIA [id number] [address] [place] [address] [place] #### 3016-3 #### [facility] CLIA [id number] [address] [facility] [address] [place] [id number] [place] TSH SERPL-ACNC Collected: 5 7:10 AM Status: F Source: [facility] Order Comment: Specimen Type : BLOOD SPECIMEN Ordering Facility: [facility] Address: [address] [place] [address] TYPE CODE TESTS RESULT OUT OF RANGE REFERENCE UNITS LAB 3016-3([facility]) TSH SerPl-aCnc 0.039 Low 0.270-4.200 mIU/L Performed By: #### 92789-9 # ### [facility] CLIA [id number] [address] [place], [place] [id number] [facility] CLIA [id number] [address] [place] [address] #### 3016-3 #### [facility] CLIA [id number] [address] [place] [address] CBC PNL BLD AUTO Collected: 5 7:10 AM Status: F Source: [facility] Order Comment: Specimen Type : BLOOD SPECIMEN Ordering Facility: [facility] Address: [address] [place] [address] TYPE CODE TESTS RESULT OUT OF RANGE [...] MCHC RBC Auto-mCnc 34.5 30.5-36.0 g/dL LAB 38464-1(LOINC) RDW RBC-Rto 12.0 11.5-15.0 % LAB 777-3(LOINC) Platelet # Bld Auto 228 150-400 k/uL LAB 17923-9([facility]) PMV Bld Auto 9.8 9.0-12.7 fL LAB 771-6([facility]) nRBC # Bld Auto <0.01 <0.01 k/uL Performed By: #### 67744-2 # ### [facility] CLIA [id number] [address] [place] [address] [place] COMP METAB 2000 PNL SERPL Collected: 7:10 AM Status: F Source: [facility] Order Comment: Specimen Type : BLOOD SPECIMEN Ordering Facility: [facility] Address: [address] [place] [address] TYPE CODE TESTS RESULT OUT OF RANGE REFERENCE UNITS LAB 2885-2([facility]) Prot SerPl-mCnc 6.9 6.3-8.0 g/dL LAB 1751-7([facility]) Albumin SerPl-mCnc 4.5 3.9-4.9 g/dL LAB 53111-2([facility]) Calcium SerPl-mCnc 9.9 8.5-10.2 mg/dL LAB 1975-2([facility]) Bilirub SerPl-mCnc 0.4 0.2-1.3 mg/dL LAB 6768-6([facility]) ALP SerPl-cCnc 72 34-123 U/L LAB 1920-8([facility]) AST SerPl-cCnc 34 13-35 U/L LAB 1742-6([facility]) ALT SerPl-cCnc 27 7-38 U/L LAB 2345-7([facility]) Glucose SerPl-mCnc 80 74-99 mg/dL Result Comment: The [place] Diabetes Association (ADA) provides guidance for cutoff [...] Standards of Medical Care in Diabetes 2016, [place] Diabetes Association. Diabetes Care. 2016.39(Suppl 1). LAB 3094-0(LOINC) BUN SerPl-mCnc 8 7-21 mg/dL LAB 2160-0(LOINC) Creat SerPl-mCnc 0.66 0.58-0.96 mg/dL LAB 2951-2(LOINC) Sodium SerPl-sCnc 139 136-144 mmol/L LAB 2823-3(LOINC) Potassium SerPl-sCnc 4.2 3.7-5.1 mmol/L LAB 2075-0(LOINC) Chloride SerPl-sCnc 103 98-107 mmol/L LAB 202-9(LOINC) CO2 SerPl-sCnc 23 22-30 mmol/L LAB 50699-2(LOINC) Anion Gap SerPl-sCnc 13 8-15 mmol/L LAB 76943-8(LOINC) eGFRcr SerPlBld CKD-EPI 2020 105 >=60 mL/min/1. [...] accurately reflect actual GFR. Performed By: #### 85994-9 # ### [facility] [id number] [address] [place] [address] [facility] PRO[facility]ESS Observed: 12/06/2024 9:33 AM Status: COMPLETED Source: [facility] HNO ID: [id number] Author: MERCEDES MUJICA MD Service: ? Author [...] in agreement. Mercedes Mujica MD, Staff, Respiratory [facility] CHIEF COMPLAINT: Hospital Follow Up HISTORY OF PRESENT ILLNESS: Khloe Flores is a 54-year-old female with a history of lumbosacral radiculopathy, left lower extremity weakness, seronegative rheumatoid arthritis affecting multiple joints, Lyme disease, hypothyroidism, GERD, and Sjogren's syndrome, presenting for follow-up after a recent hospitalization for bilateral pneumonia. Khloe was admitted to [facility] from 10/04 to 10/06 for bilateral pneumonia, [...] No significant exposure Silica: No significant exposure Mohave: No significant exposure Mold: No significant exposure Hot tub: No significant exposure Fumes: No significant exposure Metal dust: No significant exposure Beryllium: No significant exposure Dust: No significant exposure Medications: No relevant exposure for interstitial lung diseases FAMILY HISTORY Problem Relation Age of Onset Cancer Mother blood- multiple mylomia other (multiple myoloma) Mother Heart Father 54 NH; Hypertension Maternal Grandmother Diabetes Maternal Grandmother Breast [...] lower lobe. Findings are concerning for pneumonia. Jlkg-wg-ceo-type pulmonary nodules are seen predominantly within the right upper lobe also concerning for pneumonia. Interval follow-up examination after treatment is recommended over to ensure resolution. No mary lymphadenopathy is seen within the chest. Clinical Laboratory Service Teacher: PSCB Transcribe Date/Time: Nov 23 2024 2:25P [...] 01/12/2009 12/30/2009 01/05/2011 12/28/2011 01/09/2013 novel influenza (A2N8-45) vaccine, PF 02/21/2009 tetanus diphtheria pertussis (Tdap) vaccine, age 7+ yr (ADACEL, BOOSTRIX) 04/02/2011 06/10/2022 zoster (RZV) vaccine, recombinant (SHINGRIX) 03/08/2022 03/08/2022 03/08/2022 05/31/2022 Verbal and/or written health teaching given to patient with > 40 minutes spent face to face with more than half of this for disease counseling. Recording using [employer] software for draft documentation of the visit was discussed with the patient/authorized outside sales representative; all questions welcomed and answered. Patient/authorized outside sales representative agreed to proceed Mercedes Mujica MD, Staff, Respiratory [facility] [1] Social History Tobacco Use Smoking status: Never Smokeless tobacco: Never Vaping Use Vaping status: Never Used Substance Use Topics Alcohol use: No Drug use: No CNOV Observed: 12/06/2024 9:30 AM Status: COMPLETED Source: [facility] Office Visit ([facility]) KHLOE FLORES ([id number]) 1970 F Date Time Provider Department 12/06/24 9:30 AM MERCEDES MUJICA [facility] During your visit today, we recorded the following information about you: Pulse Blood pressure Weight 72/minute 142/83 64 kg Mercedes Mujica MD 12/06/2024 1:30 PM Signed [facility] DEPARTMENT OF PULMONARY MEDICINE OFFICE VISIT CONSULT [...] in agreement. Mercedes Mujica MD, Staff, Respiratory [facility] CHIEF COMPLAINT: Hospital Follow Up HISTORY OF PRESENT ILLNESS: Khloe Flores is a 54-year-old female with a history of lumbosacral radiculopathy, left lower extremity weakness, seronegative rheumatoid arthritis affecting multiple joints, Lyme disease, hypothyroidism, GERD, and Sjogren's syndrome, presenting for follow-up after a recent hospitalization for bilateral pneumonia. Khloe was admitted to [facility] from 10/04 to 10/06 for bilateral pneumonia, [...] No significant exposure Silica: No significant exposure Mohave: No significant exposure Mold: No significant exposure Hot tub: No significant exposure Fumes: No significant exposure Metal dust: No significant exposure Beryllium: No significant exposure Dust: No significant exposure Medications: No relevant exposure for interstitial lung diseases FAMILY HISTORY Problem Relation Age of Onset Cancer Mother blood- multiple mylomia other (multiple myoloma) Mother Heart Father 54 NH; Hypertension Maternal Grandmother Diabetes Maternal Grandmother Breast [...] lower lobe. Findings are concerning for pneumonia. Iofe-fw-yan-type pulmonary nodules are seen predominantly within the right upper lobe also concerning for pneumonia. Interval follow-up examination after treatment is recommended over to ensure resolution. No mary lymphadenopathy is seen within the chest. Clinical Laboratory Service Teacher: MILLY Transcribe Date/Time: Nov 23 2024 2:25P [...] 01/12/2009 12/30/2009 01/05/2011 12/28/2011 01/09/2013 novel influenza (R2R8-79) vaccine, PF 02/21/2009 tetanus diphtheria pertussis (Tdap) vaccine, age 7+ yr (ADACEL, BOOSTRIX) 04/02/2011 06/10/2022 zoster (RZV) vaccine, recombinant (SHINGRIX) 03/08/2022 03/08/2022 03/08/2022 05/31/2022 Verbal and/or written health teaching given to patient with > 40 minutes spent face to face with more than half of this for disease counseling. Recording using CrowdStar software for draft documentation of the visit was discussed with the patient/authorized outside sales representative; all questions welcomed and answered. Patient/authorized outside sales representative agreed to proceed Mercedes Mujica MD, Staff, Respiratory [facility] [1] Social History Tobacco Use Smoking status: Never Smokeless tobacco: Never Vaping Use Vaping status: Never Used Substance Use Topics Alcohol use: No Drug use: No Referring Provider: JAN HOLLOWAY [[id number]] Allergies As of Date: 12/06/2024 Noted Allergy [...] rheumatoid arthritis (HCC) [M06.00] Immunosuppressed status ([facility]) [D84.9] Order(s):CONSULT TO PULM/CRITICAL CARE [[id number]] Order #: [id number]: 1 Prescriptions as of 12/06/2024 - liothyronine [...] R53.83] 07/12/2005 03/06/2015 Myalgia and myositis, unspecified [[id number]] 07/12/2005 03/06/2015 Loss of weight [R63.4] 08/02/2005 [...] for Encounter Date Provider Department Center 12/06/2024 [id number], ELIZABE*[facility] Med C Encounter Status:Closed by [facility]CEDES [facility] Observ[facility]: 11/30/2024 12:00 AM Status: COMPLETED [facility]: [facility]HLO[facility] ([id number]) 1970 F Date Time Provider Department 11/30/24 [facility] visit today, we recorded the following information about you: Palma Hernandez LPN 11/30/2024 10:[address] Holloway, I am following up with you regarding my recent CT scan for pneumonia. Claudia Vargaslogben requested I notify my cad designer, Dr. Garcia. After reviewing my CT scan, Dr. Garcia asked me to request from you a referral to a party plan sales agent. Thank you for your help, Jan Thomas [...] Order(s):CONSULT TO PULM/CRITICAL CARE [[id number]] Order #: [id number]: 1 FUTURE Prescriptions as of 12/02/2024 - [...] R53.83] 07/12/2005 03/06/2015 Myalgia and myositis, unspecified [[id number]] 07/12/2005 03/06/2015 Loss of weight [R63.4] 08/02/2005 [...] Observed: 11/24/2024 12:00 AM Status: COMPLETED Source: [facility] Telephone ([facility]) KHLOE FLORES ([id number]) 1970 F Date Time Provider Department 11/24/24 JAN HOLLOWAY [facility] During your visit today, we recorded the following information about you: Magalie Cadet LPN 11/24/2024 2:31 PM Signed [facility] pharmacy calling asking for a 90 day rx due to patient insurance. Was given reference number [id number]. Pending rx Please advise The patient has [...] R53.83] 07/12/2005 03/06/2015 Myalgia and myositis, unspecified [[id number]] 07/12/2005 03/06/2015 Loss of weight [R63.4] 08/02/2005 [...] Observed: 11/23/2024 2:00 PM Status: [facility]TED [id number] Author: MARIA M GUNN RT(Matt) Service: Radiology [...] PATIENT PRESENTS WITH AN IMPLANTABLE OR ATTACHED GARMENT MENDER: No RADIOLOGY DEPARTMENT: CT; Exam(s) Completed: Chest PERIPHERAL IV DATA: Not applicable SIGNED BY: RT La(R) November 23, 2024 1:[address] CHEST WO IVCON Observed: 11/23/2024 1:58 PM Status: F Source: [facility] * * *Final Report* * * DATE OF EXAM: Nov 23 2024 1:58PM [facility] 0541 - CT CHEST WO IVCON / [...] lower lobe. Findings are concerning for pneumonia. Erkb-ru-npy-type pulmonary nodules are seen predominantly within the right upper lobe also concerning for pneumonia. Interval follow-up examination after treatment is recommended over to ensure resolution. No mary lymphadenopathy is seen within the chest. Clinical Laboratory Service Teacher: MILLY Transcribe Date/Time: Nov 23 2024 2:25P Dictated by : AURELIO ESPARZA MD This examination was interpreted and the report reviewed and electronically signed by: AURELIO ESPARZA MD on Nov 23 2024 9:17PM EST [id number] CNOV Observed: 10/11/2024 1:40 PM Status: COMPLETED Source: [facility] KHLOE FLORES ([id number]) 1970 F Date Time Provider Department 10/11/24 1:40 PM CLAUDIA HUANG During your visit today, we recorded the following information about you: Pulse Respiration Blood pressure Weight 94/minute 16/minute 124/80 61.2 kg Claudia Huang APRN.MANAGER OF REVENUE 10/11/2024 1:45 PM Signed 10/11/2024 Patient presents with: Hospital Follow Up Recording using [employer]dStar software for draft documentation of the visit was discussed with the patient/authorized outside sales representative; all questions welcomed and answered. Patient/authorized outside sales representative agreed to proceed SUBJECTIVE: This is a 54 year old that is here today for Above Complaints. Pneumonia: - Hospitalized from 10/04 to 10/06 for bilateral pneumonia, with right side being more severe. - Presented to the ER with right-sided chest pain and dyspnea after a week of symptoms including chest pain, malaise, and extreme fatigue. - Initially consulted cad designer, who ordered an echo and chest X-ray, [...] it and antibiotics. - Upcoming appointment with cad designer to discuss resuming medications. Sjogren's Syndrome: - [...] TNF inhibitor injections; advised to consult with cad designer on Friday. - Patient understands the importance of not restarting these medications prematurely to avoid triggering an autoimmune flare. Claudia Podlogjordi, JOVITA.MANAGER OF REVENUE Prescription instructions reviewed with patient as applicable. [...] present (HCC) [M06.9] Order(s):CT CHEST WO IVCON [[id number]] Order #: [id number] FUTURE Prescriptions as of 10/11/2024 - estradiol [...] R53.83] 07/12/2005 03/06/2015 Myalgia and myositis, unspecified [[id number]] 07/12/2005 03/06/2015 Loss of weight [R63.4] 08/02/2005 [...] Observed: 10/11/2024 1:30 PM Status: COMPLETED Source: [facility] HNO ID: [id number] Author: CLAUDIA HUANG APRN.MANAGER OF REVENUE Service: ? Author Type: Nurse Practitioner Type: Progress Notes Filed: 10/11/2024 13:45 Note Text: 10/11/2024 Patient presents with: Hospital Follow Up Recording using [employer]dStar software for draft documentation of the visit was discussed with the patient/authorized outside sales representative; all questions welcomed and answered. Patient/authorized outside sales representative agreed to proceed SUBJECTIVE: This is a 54 year old that is here today for Above Complaints. Pneumonia: - Hospitalized from 10/04 to 10/06 for bilateral pneumonia, with right side being more severe. - Presented to the ER with right-sided chest pain and dyspnea after a week of symptoms including chest pain, malaise, and extreme fatigue. - Initially consulted cad designer, who ordered an echo and chest X-ray, [...] it and antibiotics. - Upcoming appointment with cad designer to discuss resuming medications. Sjogren's Syndrome: - [...] TNF inhibitor injections; advised to consult with cad designer on Friday. - Patient understands the importance of not restarting these medications prematurely to avoid triggering an autoimmune flare. Claudia Podlogar, DIESEL ENGINE ERECTOR.MANAGER OF REVENUE Prescription instructions reviewed with patient as applicable. [...] Observed: 09/10/2024 9:37 AM Status: COMPLETED Source: [facility] HNO ID: [id number] Author: KENDRA MILALN APRN.CNM Service: ? Author Type: Senior Network Administrator Type: Progress Notes Filed: 09/13/2024 13:01 Note [...] Births0 Comment: Menarche age 13 [employer] 28 Mental Health Associate History LMP: 07/05/2015 (Exact Date), Ablation Age at Menarche: 13 Age at First : Age at Menopause: Mental Health Associate History Comments: Sexual Activity: Yes; Male; HUSBANDS [...] other (multiple myoloma) Mother Heart Father 54 NH; Hypertension Maternal Grandmother Diabetes Maternal Grandmother Breast [...] Observed: 09/10/2024 9:30 AM Status: COMPLETED Source: [facility] Office Visit ([facility]) KHLOE FLORES ([id number]) 1970 F Date Time Provider Department 09/10/24 9:30 AM KENDRA MILLAN [facility] During your visit today, we recorded the following information about you: Blood pressure Weight 122/78 64 kg Kendra Millan APRN.CNM 09/13/2024 1:01 PM Signed Khloe Flores [...] Births0 Comment: Menarche age 13 [employer] 28 Mental Health Associate History LMP: 07/05/2015 (Exact Date), Ablation Age at Menarche: 13 Age at First : Age at Menopause: Mental Health Associate History Comments: Sexual Activity: Yes; Male; HUSBANDS [...] other (multiple myoloma) Mother Heart Father 54 NH; Hypertension Maternal Grandmother Diabetes Maternal Grandmother Breast [...] R53.83] 07/12/2005 03/06/2015 Myalgia and myositis, unspecified [[id number]] 07/12/2005 03/06/2015 Loss of weight [R63.4] 08/02/2005 [...] Observed: 08/16/2024 12:00 AM Status: COMPLETED Source: [facility] KHLOE FLORES ([id number]) 1970 F Date Time Provider Department 08/16/24 JAN HOLLOWAY [facility] During your visit today, we recorded the [...] another 5 days of Augmentin. Uses [facility]. Please call pt back with response. IAIN [...] Date Reviewed: 08/11/2024 Reviewed by: Rinku Rojas APRN.MANAGER OF REVENUE - Fully Assessed Reason for Visit: Patient Question [6743] Visit Diagnosis:Acute rhinosinusitis [J01.90] Order(s):amoxicillin-clavulanate potassium (AUGMENTIN) [...] R53.83] 07/12/2005 03/06/2015 Myalgia and myositis, unspecified [[id number]] 07/12/2005 03/06/2015 Loss of weight [R63.4] 08/02/2005 [...] Observed: 08/11/2024 7:42 AM Status: COMPLETED Source: [facility] ID: [id number] Author: RINKU ROJAS APRN.MANAGER OF REVENUE Service: ? Author Type: Nurse Practitioner Type: Progress Notes Filed: 08/11/2024 07:49 Note Text: Telemedicine Visit - Distance Health Virtual Visit Note Patient seen on [employer] Video Visit platform. Location of patient: [facility] Joseluis Holloway, DO I have communicated my name and active licensure. The patient's identity and physical location were verified at the time of this visit. Either the patient or their legal outside sales representative has been informed of the risks [...] ago, coinciding with tree pollen season in [place]. - Exam reveals maxillary sinus tenderness and [...] Prescribed Diflucan for prophylaxis. Attestation Recording using CrowdStar software for draft documentation of the visit was discussed with the patient/authorized outside sales representative; all questions welcomed and answered. Patient/authorized outside sales representative agreed to proceed IF YOUR SYMPTOMS [...] Observed: 08/06/2024 12:00 AM Status: COMPLETED Source: [facility] Telephone ([facility]) KHLOE FLORES ([id number]) 1970 F Date Time Provider Department 08/06/24 [...] R53.83] 07/12/2005 03/06/2015 Myalgia and myositis, unspecified [[id number]] 07/12/2005 03/06/2015 Loss of weight [R63.4] 08/02/2005 [...] Observed: 08/06/2024 12:00 AM Status: COMPLETED Source: [facility] [facility] KHLOE FLORES ([id number]) 1970 F Date Time Provider Department 08/06/24 [facility] During your visit today, we recorded the following information about you: Palma Hernandez LPN 08/06/2024 8:44 AM Signed Lana from [facility] calling and states Pt's Reclast order needs to be in a Therapy plan not in the MAR. Call Lana with questions. Shashi Davalos APRN.MANAGER OF REVENUE 08/06/2024 9:04 AM Signed I placed a therapy order for it. Shashi Davalos APRN.MANAGER OF REVENUE Allergies As of Date: 08/06/2024 Noted Allergy [...] R53.83] 07/12/2005 03/06/2015 Myalgia and myositis, unspecified [[id number]] 07/12/2005 03/06/2015 Loss of weight [R63.4] 08/02/2005 [...] Observed: 07/28/2024 10:54 AM Status: COMPLETED Source: [facility] HNO ID: [id number] Author: JAN HOLLOWAY, DO Service: ? Author [...] with more than 50% of the total hyda-hm-srgy time of the visit in counseling / coordination of care. Return if no improvement. Follow up with Jan Holloway DO. To ER if develops chest pain, shortness of breath. Discussed risks, benefits, alternatives, and potential side effects of medications. Patient/Guardian expressed understanding and agreed with the plan. See patient instructions. Jan Holloway DO [address] [place] [address] JOSS Observed: 07/28/2024 10:20 AM Status: COMPLETED Source: [facility] Office Visit (FAMPWS) KHLOE FLORES ([id number]) 1970 F Date Time Provider Department 07/28/24 10:20 AM [facility] During your visit today, we recorded [...] with more than 50% of the total yvzl-rq-ecom time of the visit in counseling / coordination of care. Return if no improvement. Follow up with Jan Holloway DO. To ER if develops chest pain, shortness of breath. Discussed risks, benefits, alternatives, and potential side effects of medications. Patient/Guardian expressed understanding and agreed with the plan. See patient instructions. Jan Holloway DO [address] [place] [address] Allergies As of Date: 07/28/2024 Noted Allergy [...] R53.83] 07/12/2005 03/06/2015 Myalgia and myositis, unspecified [[id number]] 07/12/2005 03/06/2015 Loss of weight [R63.4] 08/02/2005 [...] Observed: 07/28/2024 12:00 AM Status: COMPLETED Source: [facility] ALEJAHKLOE ([id number]) 1970 F Date Time Provider Department 07/28/24 [...] R53.83] 07/12/2005 03/06/2015 Myalgia and myositis, unspecified [[id number]] 07/12/2005 03/06/2015 Loss of weight [R63.4] 08/02/2005 [...] Observed: 2024 7:59 AM Status: F Source: [facility] * * *Final Report* * * DATE OF EXAM: Jul 16 2024 7:59AM WRKarely 0804 - BD DXA - AXIAL SKELETON / PROCEDURE REASON: multiple diagnoses * * * * Physician Interpretation * * * * EXAMINATION: DXA BONE DENSITOMETRY BD DXA - AXIAL SKELETON PATIENT DEMOGRAPHICS: Age: 53 years, Gender: Female SCANNER INFORMATION: DXA Model: [employer] - Ztail C 85382 Date Scanned: 07/16/2024 7:59 AM CLINICAL HISTORY: [...] FOR MORE INFORMATION ABOUT DIAGNOSIS AND TREATMENT: [facility] Metabolic Bone Disease:? www.ccf.org/arthritis/osteo National Osteoporosis Foundation:? www.nof.org International Society of Clinical Densitometry www.iscd.org Clinical Laboratory Service Teacher: MILLY Transcribe Date/Time: Jul 18 2024 9:40A Dictated by : IRIS COLLINS MD This examination was interpreted and the report reviewed and electronically signed by: IRIS COLLINS MD on Jul 18 2024 9:43AM EST [id number] PROGRESS Observed: 07/16/2024 7:45 AM Status: COMPLETED Source: [facility] HNO ID: [id number] Author: VANDANA AVALOS RT(Matt) Service: ? Author [...] PATIENT PRESENTS WITH AN IMPLANTABLE OR ATTACHED GARMENT MENDER: No RADIOLOGY DEPARTMENT: Bone Density PERIPHERAL IV DATA: Not applicable SIGNED BY: RT Frank(R) July 16, 2024 7:44 AM VITAMIN C Collected: 7:24 AM Status: F Source: [facility] Order Comment: Specimen Type : BLOOD SPECIMEN Ordering Facility: [facility] Address: [address] [place] [address] TYPE CODE TESTS RESULT OUT OF RANGE [...] developed and its performance characteristics determined by [facility]. It has not been cleared or approved by the US Food and Drug Administration. This test was performed in a CLIA certified laboratory and is intended for clinical purposes. Performed By: [facility] [address] [place] [address] Train Clerk: Darwin Solano MD, PhD CLIA Number: [id number] Performed By: #### VITC #### [facility] CLIA [id number] [address] [place] [address] VIT B12 SERPL-MCNC Collected: 07/16/2024 7:24 AM Sta tus: F Source: [facility] Comment: Specimen Type : BLOOD SPECIMEN Ordering Facility: [facility] Address: [address] [place] [address] TYPE CODE TESTS RESULT OUT OF RANGE REFERENCE UNITS LAB 2131-11(LOINC) Vit B12 SerPl-mCnc >2000 High 232-1245 pg/mL Performed By: #### 9 ## ## [facility] CLIA [id number] [address] [place] [address] 25(OH)D3 SERPL-MCNC Collected: 07/17/19 7:24 AM Status: F Source: [facility] Comment: Specimen Type : BLOOD SPECIMEN Ordering Facility: [facility] Address: [address] [place] [address] TYPE CODE TESTS RESULT OUT OF RANGE REFERENCE UNITS LAB 1988-05(LOINC) 25(OH)D3 SerPl-mCnc 64.9 31.0-80.0 ng/mL Result Comment: Classificati on of 25 OH Vitamin D status: Deficiency/Insufficiency: < or = 30 ng/ml. Sufficiency/Optimal Levels: 31-80 ng/mL Toxicity: > 100 ng/mL. Test performed by chemiluminescent immunoassay. Performed By: #### 1988-05 ## ## [facility] CLIA [id number] [address] [place] [address] [place] IRON+TIBC PNL SERPL Collected: 07/16/2024 7:[address] atus: F Source: [facility] Comment: Specimen Type : BLOOD SPECIMEN Ordering Facility: [facility] Address: [address] [place] [address] TYPE CODE TESTS RESULT OUT OF RANGE REFERENCE UNITS LAB 2498-4(LOINC) Iron SerPl-mCnc 152 41-186 ug/dL LAB 2500-7(LOINC) TIBC SerPl-mCnc 310 232-386 ug/dL LAB 36732-4(LOINC) Iron/TIBC SerPl-sRto 49.0 15.0-57.0 % Performed By: #### 3024-7, 5 0190-8, 3016-3, 3051-0 #### [facility] CLIA [id number] [address] [place] [address] [place] T3FREE SERPL-MCNC Collected: 07/16/2024 7:24 AM Stat us: F Source: [facility] Order Comment: Specimen Type : BLOOD SPECIMEN Ordering Facility: [facility] Address: [address] [place] [address] TYPE CODE TESTS RESULT OUT OF RANGE REFERENCE UNITS LAB 3051-0(LOINC) T3Free SerPl-mCnc 3.6 2.3-4.1 pg/mL Performed By: #### 3024-7, 5 0190-8, 3016-3, 3051-0 #### [facility] CLIA [id number] [address] [place] [address] [place] T4 FREE SERPL-MCNC Collected: 07/16/2024 7:24 AM Sta tus: F Source: [facility] Comment: Specimen Type : BLOOD SPECIMEN Ordering Facility: [facility] Address: [address] [place] [address] TYPE CODE TESTS RESULT OUT OF RANGE REFERENCE UNITS LAB 3024-7(LOINC) T4 Free SerPl-mCnc 1.1 0.9-1.7 ng/dL Performed By: #### 3024-7, 5 0190-8, 3016-3, 3051-0 #### [facility] CLIA [id number] [address] [place], [place] [address] [facility] TSH SERPL-ACNC Collected: 7:24 AM Status: F Source: [facility] Order Comment: Specimen Type : BLOOD SPECIMEN Ordering Facility: [facility] Address: [address] [place] [address] TYPE CODE TESTS RESULT OUT OF RANGE REFERENCE UNITS LAB 3016-3(LOINC) TSH SerPl-aCnc 0.340 0.270-4.200 mIU/L Performed By: #### 3024-7, 5 0190-8, 3016-3, 3051-0 #### [facility] CLIA [id number] [address] [place] [address] PROGRESS Observed: 06/09/2024 7:53 AM Status: COMPLETED Source: [facility] HNO ID: [id number] Author: JAN HOLLOWAY, DO Service: ? Author [...] progesterone at night and taking Estradiol patches. APPLICATIONS PROGRAMMER ANALYST specialist is helping this Radha Millan She [...] other (multiple myoloma) Mother Heart Father 54 NH; Hypertension Maternal Grandmother Diabetes Maternal Grandmother Breast [...] agreed with the plan. Jan Holloway DO [address] [place] [address] HOWIEOV Observed: 06/09/2024 7:40 AM Status: COMPLETED Source: [facility] KHLOE FLORES ([id number]) 1970 F Date Time Provider Department 06/09/24 7:40 AM [facility] During your visit today, we recorded [...] progesterone at night and taking Estradiol patches. APPLICATIONS PROGRAMMER ANALYST specialist is helping this Radha Monty She [...] other (multiple myoloma) Mother Heart Father 54 NH; Hypertension Maternal Grandmother Diabetes Maternal Grandmother Breast [...] with the plan. Jan Holloway DO [address] [place] [address] Jan Holloway DO 06/09/2024 8:18 AM Signed [...] 3 THYROID STIMULATING HORMONE [SQTSH] Order #: [id number] FUTURE T4 FREE/FREE THYROXINE [SQFT4] Order #: [id number] FUTURE T3, FREE [SQFREET3] Order #: [id number] FUTURE DXA-AXIAL SKELETON [4959033] Order #: [id number] FUTURE IRON AND TIBC [SQIRON] Order #: [id number] FUTURE VITAMIN B12 [SQB12] Order #: [id number] FUTURE VITAMIN C [SQVITC] Order #: [id number] FUTURE VITAMIN D 25 HYDROXY [SQVITD] Order #: [id number] FUTURE Prescriptions as of 06/09/2024 - adalimumab-adaz [...] R53.83] 07/12/2005 03/06/2015 Myalgia and myositis, unspecified [[id number]] 07/12/2005 03/06/2015 Loss of weight [R63.4] 08/02/2005 [...] SERPL-ACNC Collected: 7:19 AM Status: F Source: [facility] Order Comment: Specimen Type : BLOOD SPECIMEN Ordering Facility: [facility] Address: [address] [place] [address] TYPE CODE TESTS RESULT OUT OF RANGE REFERENCE UNITS LAB 85088-3(LOINC) TSH SerPl DL<=0.005 mIU/L-aCnc 0.214 Low 0.270-4.200 mIU/L Performed By: #### 3016-3, 3 053-6, 3024-7 #### [facility] CLIA [id number] [address] [place] [address] [place] T4 FREE SERPL-MCNC Collected: 06/01/2024 7:19 AM Sta tus: F Source: [facility] Order Comment: Specimen Type : BLOOD SPECIMEN Ordering Facility: [facility] Address: [address] [place], [place] [address] TYPE CODE TESTS RESULT OUT OF RANGE REFERENCE UNITS LAB 3024-7(LOINC) T4 Free SerPl-mCnc 1.5 0.9-1.7 ng/dL Performed By: #### 3016-3, 3 053-6, 3024-7 #### [facility] CLIA [id number] [address] T3 SERPL-MCNC Collected: 06/01/2024 7:19 AM Status: F Source: [facility] Order Comment: Specimen Type : BLOOD SPECIMEN Ordering Facility: [facility] Address: [address] [place] [address] TYPE CODE TESTS RESULT OUT OF RANGE REFERENCE UNITS LAB 3053-6(LOINC) T3 SerPl-mCnc 87 79-165 ng/d L Performed By: #### 3016-3, 3 053-6, 3024-7 #### [facility] CLIA [id number] [address] PROGRESS Observed: 05/20/2024 10:07 AM Status: COMPLETED Source: [facility] HNO ID: [id number] Author: ?, ?, ? Service: ? Author Type: ? Type: Progress Notes Filed: 06/21/2024 03:03 Note Text: Pt scheduled for physical with PCP on 06/09/24-updated notes pt due for colonoscopy CNPTOUTREACH Observed: 05/19/2024 12:00 AM Status: COMPLETED Source: [facility] Patient Outreach (ASWSTR) KHLOE FLORES ([id number]) 1970 F Date Time Provider Department 05/19/24 [...] Date Reviewed: 01/16/2024 Reviewed by: Clifford Carvalho APRN.MANAGER OF REVENUE - Fully Assessed Reason for Visit: Outpatient [...] R53.83] 07/12/2005 03/06/2015 Myalgia and myositis, unspecified [[id number]] 07/12/2005 03/06/2015 Loss of weight [R63.4] 08/02/2005 [...] TEST Collected: 9:17 AM Status: F Source: [facility] Order Comment: Specimen Type : FLUID SPECIMEN Ordering Facility: [facility] Address: [address] [place] [address] TYPE CODE TESTS RESULT OUT OF RANGE REFERENCE UNITS PATHOLOGY [id number] CASE REPORT Result Comment: Gynecologic Cytology Report Case: [id number] Authorizing Provider: Kendra Millan APRN.CNM Collected: 05/18/2024 09:17 AM Ordering Location: OB/Gynecology Received: 05/18/2024 10:50 AM First Screen: Nargis Sotomayor CT, ASCP Specimen: Pap Test, ThinPrep, Cervix PATHOLOGY [id number] ADEQUACY Satisfactory for interpretation. PATHOLOGY [id number] INTERPRETATIO N, CYTOLOGY, APPLICATIONS PROGRAMMER ANALYST Result Comment: Negative for intraepithelial lesion or malignancy. at 0807 EST PATHOLOGY [id number] CLINICAL HISTORY, CYTOLOGY, APPLICATIONS PROGRAMMER ANALYST Routine Exam Result Comment: No Menses, O ther (Specify) Ablation PATHOLOGY PAPDC PAP DISCLAIMER COMMENT The Pap Smear is a screening test for cervical cancer. False negative results occur with all screening tests, emphasizing the need for rescreening at recommended intervals, and clinical correlation. PATHOLOGY PAPIC PAP FINANCIAL INVESTMENT MANAGER COMMENT This specimen has been analyzed by the ThinPrep Imaging System, an automated imaging and review system, which assists the laboratory in evaluating cells on ThinPrep Pap tests. Following automated imaging, selected tate from every slide are reviewed by a cytotechnologis tJustin PATHOLOGY [facility] Result Comment: Technical co mpolori, corner former screening performed at [facility], [address] [place] [address] CLIA# [id number] Diagnostic interpretation performed at [facility], [address] [place] [address] CLIA# [id number] Train Clerk: Nithin Reagan M.D. Performed By: #### [id number] # ### [facility] CLIA [id number] [address] [place] [address] HIGH RISK HUMAN PAPILLOMA VIRUS (HPV), PCR FOR DETECTION AND GENOTYPING Collected: 05/18/2024 9:17 AM Status: F Source: [facility] Order Comment: Specimen Type : FLUID SPECIMEN Ordering Facility: [facility] Address: [address] [place] [address] TYPE CODE TESTS RESULT OUT OF RANGE REFERENCE UNITS LAB 83134-4(LOINC) HPV16 Ag Spec Ql Not detected Not detected LAB 57492-6(LOINC) HPV18 Ag Spec Ql Not detected Not detected LAB 69152-4(INC) HPV HR 12 DNA Cvx Ql JUNG+probe Not detected Not detected Result Comment: High Risk HP V Other Type includes HPV types 31, 33, 35, 39, 45, 51, 52, 56, 58, 59, 66 and 68. Performed By: #### HPVHRT ## ## [facility] CLIA [id number] [address] [place] [address] OF [place] CNOV Observed: 05/18/2024 8:15 AM Status: COMPLETED Source: [facility] Office Visit (OBGYWM) ALEJAKHLOE Matt ([id number]) 1970 F Date Time Provider Department 05/18/24 [...] Births0 Comment: Menarche age 13 Afb 28 Mental Health Associate History LMP: 07/05/2015 (Exact Date), Ablation Age at Menarche: 13 Age at First : Age at Menopause: Mental Health Associate History Comments: Sexual Activity: Yes; Male; HUSBANDS [...] other (multiple myoloma) Mother Heart Father 54 NH; Hypertension Maternal Grandmother Diabetes Maternal Grandmother Breast [...] discussed with the Patient or Patient's Authorized Tube Puller. As applicable, any other physician, advance practice provider, medical student, or other health professional student that will be observing or involved in the sensitive examination for educational or training purposes was discussed with the Patient or Authorized Tube Puller. The Patient or Authorized Tube Puller has agreed to proceed with the sensitive [...] external genitalia normal, normal Bartholin's glands, urethra, Middlebrook's glands, no vulvar lesions, no cervical lesions, [...] considered alternative treatments? Referring Provider: KENDRA MILLAN [[id number]] Allergies As of Date: 05/18/2024 Noted Allergy [...] Date Reviewed: 01/16/2024 Reviewed by: Clifford Carvalho APRN.MANAGER OF REVENUE - Fully Assessed Reason for Visit: Well Woman [1463] Primary Visit Diagnosis:Encounter for gynecological examination (general) (routine) without abnormal findings [Z01.419] Other Visit Diagnoses:Encounter for screening for human papillomavirus (HPV) [Z11.51] Pap smear for cervical cancer screening [Z12.4] Encounter for screening mammogram for breast cancer [Z12.31] Cervical stenosis (uterine cervix) [N88.2] Vaginal atrophy [N95.2] Vasomotor symptoms due to menopause [N95.1] Order(s):PAP TEST [REZ0631] Order #: [id number]. #:[id number] KEILY SCREENING [0398502] Order #: [id number] FUTURE estradiol (VIVELLE-DOT) 0.025 mg/24 hr patchApply [...] R53.83] 07/12/2005 03/06/2015 Myalgia and myositis, unspecified [[id number]] 07/12/2005 03/06/2015 Loss of weight [R63.4] 08/02/2005 [...] for Encounter Date Provider Department Center 05/18/2024 [id number] MILLAN [facility] Encounter Status:Closed by KENDRA MILLAN on 05/18/24 KEILY SCREENING W DOROTEO Observed: 8:11 AM Status: F Source: [facility] * * *Final Report* * * DATE OF EXAM: May 18 2024 8:11AM WRW 0582 - KEILY SCREENING W DOROTEO / PROCEDURE REASON: multiple diagnoses * * * * Physician Interpretation * * * * RESULT: [place] [address] #[id number] - KEILY SCREENING W DOROTEO HISTORY: 53 [...] Lizette Le M.D. Electronically signed on: 05/18/2024 Clinical Laboratory Service Teacher: MILAN Transcribe Date/Time: May 18 2024 7:30A Dictated by: LIZETTE LE MD This examination was interpreted and the report reviewed and electronically signed by: LIZETTE LE MD on May 18 2024 8:12AM EST [id number] PROGRESS Observed: 05/18/2024 7:47 AM Status: COMPLETED Source: [facility] HNO ID: [id number] Author: KENDRA MILLAN APRN.MERRICK Service: ? Author Type: Senior Network Administrator Type: Progress Notes Filed: 05/18/2024 13:43 Note [...] Births0 Comment: Menarche age 13 [employer] 28 Mental Health Associate History LMP: 07/05/2015 (Exact Date), Ablation Age at Menarche: 13 Age at First : Age at Menopause: Mental Health Associate History Comments: Sexual Activity: Yes; Male; HUSBANDS [...] other (multiple myoloma) Mother Heart Father 54 NH; Hypertension Maternal Grandmother Diabetes Maternal Grandmother Breast [...] discussed with the Patient or Patient's Authorized Tube Puller. As applicable, any other physician, advance practice provider, medical student, or other health professional student that will be observing or involved in the sensitive examination for educational or training purposes was discussed with the Patient or Authorized Tube Puller. The Patient or Authorized Tube Puller has agreed to proceed with the sensitive [...] external genitalia normal, normal Bartholin's glands, urethra, Middlebrook's glands, no vulvar lesions, no cervical lesions, [...] Observed: 05/18/2024 7:30 AM Status: COMPLETED Source: [facility] ID: [id number] Author: JOSE ARTEAGA Mammo Tech Service: ? Author Type: Shirt Trimmer Type: Progress Notes Filed: 05/18/2024 07:56 Note [...] PATIENT PRESENTS WITH AN IMPLANTABLE OR ATTACHED GARMENT MENDER: No RADIOLOGY DEPARTMENT: Mammography PERIPHERAL IV DATA: Not applicable SIGNED BY: Krishan Becerril May 18, 2024 7:56 AM CNPN Observed: 05/18/2024 12:00 AM Status: COMPLETED Source: [facility] Telephone (OBGYWM) KHLOE FLORES ([id number]) 1970 F Date Time Provider Department 05/18/24 [...] Date Reviewed: 01/16/2024 Reviewed by: Clifford Carvalho APRN.MANAGER OF REVENUE - Fully Assessed Primary Visit Diagnosis:Encounter for screening mammogram for malignant neoplasm of breast [Z12.31] Order(s):[facility] SCREENING W DOROTEO [[id number]] Order #: [id number] FUTURE Prescriptions as of 05/18/2024 - estradiol [...] R53.83] 07/12/2005 03/06/2015 Myalgia and myositis, unspecified [ZVS6235] 07/12/2005 03/06/2015 Loss of weight [R63.4] 08/02/2005 [...] Observed: 03/19/2024 8:41 AM Status: COMPLETED Source: [facility] HNO ID: [id number] Author: ELLYN KAMARA APRN.MANAGER OF REVENUE Service: ? Author Type: Nurse Practitioner Type: Progress Notes Filed: 03/19/2024 08:57 Note Text: Telemedicine Evaluation for an Illness MyChart Zoom Video Visit was used for evaluation of this patient. I have communicated my name and active licensure. The patient's identity and physical location were verified at the time of this visit. Either the patient or their legal outside sales representative has been informed of the risks [...] Observed: 03/02/2024 12:00 AM Status: COMPLETED Source: [facility] Telephone (FAMPWS) KHLOE FLORES ([id number]) 1970 F Date Time Provider Department 03/02/24 [...] 1:35 PM Signed Sent to pt via [employer] message Tsering Frausto MA Allergies As of [...] Date Reviewed: 01/16/2024 Reviewed by: Clifford Carvalho APRN.MANAGER OF REVENUE - Fully Assessed Primary Visit Diagnosis: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] Order(s):T4 FREE/FREE THYROXINE [SQFT4] Order #: [id number] FUTURE THYROID STIMULATING HORMONE [SQTSH] Order #: [id number] FUTURE T3 [SQT3] Order #: [id number] FUTURE Prescriptions as of 03/02/2024 - fluconazole [...] R53.83] 07/12/2005 03/06/2015 Myalgia and myositis, unspecified [REC9344] 07/12/2005 03/06/2015 Loss of weight [R63.4] 08/02/2005 [...] Collected: 02/08 7:28 AM Status: F Source: [facility] Order Comment: Specimen Type : BLOOD SPECIMEN Ordering Facility: [facility] Address: [address] [place] [address] TYPE CODE TESTS RESULT OUT OF RANGE REFERENCE UNITS LAB 4548-4(LOINC) HbA1c MFr Bld 5.1 4.3-5.6 % Result Comment: [employer]ck[employer] betes [employer] guidelines indicate that patients with HgbA1c in the range 5.7-6.4% are at increased risk for development of diabetes, and intervention by lifestyle modification may be beneficial. HgbA1c greater or equal to 6.5% is considered diagnostic of diabetes. LAB 08365-1(LOINC) Est. average glucose Bld gHb Est-mCnc 100 mg/dL Result Comment: eAG: (Estima cammie average glucose) is a calculated value from HgbA1c and is outside sales representative of the average blood glucose level in the last 2-3 month period. Performed By: #### 46894-2 # ### [facility] CLIA [id number] [address] [place] [address] [place] T3FREE SERPL-MCNC Collected: 02/09/2024 7:28 AM Stat us: F Source: [facility] Order Comment: Specimen Type : BLOOD SPECIMEN Ordering Facility: [facility] Address: [address] [place] [address] TYPE CODE TESTS RESULT OUT OF RANGE REFERENCE UNITS LAB 3051-0(LOINC) T3Free SerPl-mCnc 4.0 2.3-4.1 pg/mL Performed By: #### 3016-3, 1 988-5, 3051-0, 3024-7 #### [facility] CLIA [id number] [address] [place] [address] [place] T4 FREE SERPL-MCNC Collected: 02/09/2024 7:28 AM Sta tus: F Source: [facility] Order Comment: Specimen Type : BLOOD SPECIMEN Ordering Facility: [facility] Address: [address] [place] [address] TYPE CODE TESTS RESULT OUT OF RANGE REFERENCE UNITS LAB 3024-7(LOINC) T4 Free SerPl-mCnc 1.4 0.9-1.7 ng/dL Performed By: #### 3016-3, 1 988-5, 3051-0, 3024-7 #### [facility] CLIA [id number] [address] [place] [address] [place] TSH SERPL-ACNC Collected: 7:28 AM Status: F Source: [facility] Order Comment: Specimen Type : BLOOD SPECIMEN Ordering Facility: [facility] Address: [address] [place] [address] TYPE CODE TESTS RESULT OUT OF RANGE REFERENCE UNITS LAB 3016-3(LOINC) TSH SerPl-aCnc 0.208 Low 0.270-4.200 mIU/L Performed By: #### 3016-3, 1 988-5, 3051-0, 3024-7 #### [facility] CLIA [id number] [address] [place] [address] [place] CRP SERPL-MCNC Collected: 02/09/2024 7:28 AM Status: F Source: [facility] Order Comment: Specimen Type : BLOOD SPECIMEN Ordering Facility: [facility] Address: [address] [place] [address] TYPE CODE TESTS RESULT OUT OF RANGE REFERENCE UNITS LAB 1988-5(LOINC) CRP SerPl-mCnc <0.3 <0.9 mg/dL Performed By: #### 3016-3, 1 988-5, 3051-0, 3024-7 #### [facility] CLIA [id number] [address] [place] [address] [place] CORTIS SERPL-MCNC Collected: 02/09/2024 7:28 AM Stat us: F Source: [facility] Order Comment: Specimen Type : BLOOD SPECIMEN Ordering Facility: [facility] Address: [address] [place] [address] TYPE CODE TESTS RESULT OUT OF RANGE REFERENCE UNITS LAB 2142-6(LOINC) Cortis SerPl-mCnc 12.4 4.8-19.5 ug/dL Result Comment: Provided ref erence range is from 6-10 AM sample collection time. Cortisol Reference Range: 6-10 AM = 4.8-19.5 ug/dL, 4-8 PM = 2.5-11.9 ug/dL Performed By: #### 2143-6 ## ## [facility] CLIA [id number] [address] [place], [place] [id number] [place] Observed: 01/16/2024 10:50 AM Status: COMPLETED Source: [facility] HNO ID: [id number] Author: CLIFFORD CARVALHO APRN.MANAGER OF REVENUE Service: ? Author Type: Nurse Practitioner Type: Progress Notes Filed: 01/16/2024 11:05 Note Text: [facility] ONLINE NOTE . Verified Khloe's name and and explained my name, credentials and limitations of the Virtual visit requested today. Subjective Khloe Flores is a 53 year old year old who presents to [facility] care online today with complaint of [...] agreeable with treatment plan. Clifford Carvalho APRN MANAGER OF REVENUE 01/16/2024 10:50 AM ALLERGIES DATE TYPE / CODE NAME / CODE REACTION SEVERITY SOURCE 08/26/2024 DRUG INGREDI/716742 003(SNOMED CT) CILANTRO ANAPHYLAXIS High [facility] 02/12/2023 DRUG/669969271 (SNOMED CT) ERYTHROMYCIN Vomiting [facility] 05/15/2007 DRUG INGREDI/060033 003(SNOMED CT) SOLIFENACIN SUCCINATE SWELLING [facility] 03/16/2007 DRUG INGREDI/409537 003(SNOMED CT) AZITHROMYCIN DIARRHEA [facility] 01/19/2005 DRUG INGREDI/933449 003(SNOMED CT) OFLOXACIN INTOLERANCE [facility] 01/19/2005 DRUG INGREDI/043798 003(SNOMED CT) GUAIFENESIN SWELLING [facility] 01/19/2005 DRUG/234918473 (SNOMED CT) CETYLPYRIDINIUM-BENZOC NORAH INTOLERANCE [facility] 01/19/2005 Drug Class/91420437 3(SNOMED CT) SULFA (SULFONAMIDE ANTIBIOTICS) SWELLING [facility] ENCOUNTERS ADMIT/DISCHARGE ACCOUNT NUMBER ADMITTING ENCOUNTER CLASS LOC ATION SOURCE 12/21/2024/ 5 [id number] [facility] ing:[facility] 12/06/2024/ 5 [id number] [facility] 11/23/2024 [id number] [facility] [place] [facility]LDXRCT [facility] 10/11/2024/ 5 [id number] [facility] HospitalBuild ing:[facility] 09/10/2024/ 5 [id number] [facility]Build ing:[facility] 08/26/2024/ 5 [id number] [facility]11[facility]24/ 5 [id number] [facility] ing[facility] 07/28/2024/ 5 [id number] [facility] [id number] [facility]/16[facility]/ 5 [id number] [facility] HospitalBuild ing:[address] [place] [address] 06/09/2024/ 5 [id number] [facility] 06/01/2024/ 5 [id number] [facility] HospitalBuild ing:[facility] 05/18/2024/ 5 [id number] [facility] HospitalBuild ing:[facility] 05/18/2024/ 5 [id number] [facility] HospitalBuild ing:[facility] 03/19/2024/ 4 [id number] [facility] ing[facility] 02/09/2024/ 4 [id number] [facility] HospitalBuild ing:[facility] 01/16/2024/ 4 [id number] [facility] PAYERS ENCOUNTER GUARANTOR PAYER SUBSCRIBER SOURCE 12/21/2024 Primary Insurance:MMO SUPERMED PPOPolicy Number: [id number] ve Date:7743-31-22Hstr Name:Karely GONZALEZB: [id number] [address] 12/06/2024 Primary Insurance:MMO SUPERMED PPOPolicy Number: [id number] ve Date:4533-82-52Qiac Name:Karely FLORESB: [id number] [address] 11/23/2024 Primary Insurance:MMO SUPERMED PPOPolicy Number: [id number] ve Date:3102-52-33Bcam Name:Karely FLORESB: [id number] [place] [id number] [facility] 10/11/2024 Primary Insurance:MMO SUPERMED PPOPolicy Number: [id number] ve Date:0319-10-72Iefi Name:Karely FLORESB: [id number] [address] 09/10/2024 Primary Insurance:MMO SUPERMED PPOPolicy Number: [id number] ve Date:6892-76-27Qbnb Name:Karely FLORESB: [id number] [address] 08/26/2024 Primary Insurance:MMO SUPERMED PPOPolicy Number: [id number] ve Date:0201-67-90Bexn Name:Karely GONZALEZB: [id number] [place] [id number] [facility] 08/11/2024 Primary Insurance:MMO SUPERMED PPOPolicy Number: [id number] ve Date:4127-99-56Mfvt Name:Karely FLORESDOB: [id number] [address] 07/28/2024 Primary Insurance:MMO SUPERMED PPOPolicy Number: [id number] ve Date:4494-03-71Dtvc Name:Karely GONZALEZB: [id number] [address] 07/16/2024 Primary Insurance:MMO SUPERMED PPOPolicy Number: [id number] ve Date:9186-00-41Qpfy Name:Karely GONZALEZB: [id number] [address] 07/16/2024 Primary Insurance:MMO SUPERMED PPOPolicy Number: [id number] ve Date:7923-66-53Lkfl Name:Karely GONZALEZB: [id number] [place] [id number] [facility] 06/09/2024 Primary Insurance:MMO SUPERMED PPOPolicy Number: [id number] ve Date:6191-49-85Vqqa Name:Karely FLORESDOB: [id number] 06/01/2024 Primary Insurance:MMO SUPERMED PPOPolicy Number: [id number] ve Date:2445-29-35Bcfi Name:Karely FLORESDOB: [id number] [place] [id number] [facility] 05/18/2024 Primary Insurance:MMO SUPERMED PPOPolicy Number: [id number] ve Date:4221-70-62Jjsc Name:Karely FLORESDOB: [id number] [place] [id number] [facility] 05/18/2024 Primary Insurance:MMO SUPERMED PPOPolicy Number: [id number] ve Date:2490-87-69Tbiy Name:Karely FLORESDOB: [id number] [place] [id number] [facility] 03/19/2024 Primary Insurance:MMO SUPERMED PPOPolicy Number: [id number] ve Date:2456-08-90Flke Name:Karely FLORESDOB: [id number] [place] [id number] [facility] 02/09/2024 Primary Insurance:MMO SUPERMED PPOPolicy Number: [id number] ve Date:3295-78-27Zqqt Name:Karely FLORESDOB: [id number] [place] [id number] [facility] 01/16/2024 Primary Insurance:MMO SUPERMED PPOPolicy Number: [id number] ve Date:7654-51-87Hmgh Name:Karely FLORESDOB: [id number] [place] [id number] [facility]
[2024-12-28 10:24] LABS: Hematocrit 43.1 % (37-47); Hemoglobin 14.8 g/dL (12.0-15.0); Immature Granulocytes Count 0.010 X10^3/uL (0.0-0.0); Mean Corp Hgb Conc 34.3 g/dL (32-36); Mean Corpuscular Volume 97.7 fL (81-99); Mean Platelet Vol. 9.6 fl (6.2-12.0); NRBC Flagged by Analyzer 0 % (0-5); Platelet Count 223 K/mm3 (150-450); RBC Distribution Width CV 11.9 % (11.6-14.6); RBC Distribution Width SD 42.6 fl (35.1-43.9); Red Blood Count 4.41 M/mm3 (4.2-5.4); White Blood Count 4.5 K/mm3 (4.4-11.0)
[2024-12-28 10:59] LABS: AST(SGOT) 34 U/L (<=31); Alanine Aminotransfer ALT/SGPT 30 U/L (<=34); Albumin, Serum 4.4 g/dL (3.5-5.0); Alkaline Phosphatase 61 U/L (35-104); Anion Gap 12 (5-15); BUN 9 mg/dL (4-19); BUN/Creat Ratio 12.5 RATIO (10-20); Calcium,Total 9.2 mg/dL (7.6-11.0); Carbon Dioxide 25.3 mmol/L (21.0-32.0); Chloride 104 mmol/L (98-108); Globulin 2.1 g/dL (2.2-4.2); Glucose 63 mg/dL (70-99); Potassium 3.8 mmol/L (3.3-5.1)
== END | disposition home or self-care (01) ==
LOC: MTLAB 07:14
PROVIDERS: PCP Student in an Organized Health Care Education/Training Program; Referring Provider Internal Medicine Rheumatology; Visit Provider Internal Medicine Rheumatology
DX: M05.79 Rheumatoid arthritis with rheumatoid factor of multiple sites without organ or systems involvement (principal); Z79.899 Other long term (current) drug therapy
CPT/HCPCS: 36415; 80053; 85025